=== PATIENT | male | born 1945 | race Caucasian/White ===

== ENCOUNTER → 2016-10-03 | Outpatient (CLI) | payer MEDICARE, BC ==
[2016-10-03 16:28] LABS: Anisocytosis Slight; CH 28.9; HCT 44.7 % (39.0-53.0); HDW 2.68; HGB 13.6 gm/dL (13.0-17.5); Large Platelets Flag Marked; MCH 27.7 pg (25.0-35.0); MCHC 30.5 g/dL (31.0-37.0); MCV 90.6 fL (80.0-100.0); Mean Platelet Volume 15.7; RBC 4.94 m/uL (4.30-5.90); WBC 11.9 k/uL (3.8-10.6)
[2016-10-03 16:34] LABS: Anion Gap 16 mmol/L; Blood Urea Nitrogen 47 mg/dL (9-20); Carbon Dioxide 22 mmol/L (22-30); Chloride 99 mmol/L (98-107); Glucose 250 mg/dL (74-99); Non-African American GFR(MDRD) >60 (>60 ml/min/1.73 sqM); Potassium 5.5 mmol/L (3.5-5.1); Sodium 137 mmol/L (137-145)
== END | disposition home or self-care (01) ==
LOC: LABWHC1 15:22
PROVIDERS: ATTEND Internal Medicine Clinical Cardiac Electrophysiology
DX: Z01.810 Encounter for preprocedural cardiovascular examination (principal); I25.10 Atherosclerotic heart disease of native coronary artery without angina pectoris; I47.2 Ventricular tachycardia
CPT/HCPCS: 36415; 80048; 85027

== ENCOUNTER → 2016-10-05 | Outpatient (CLI) | payer MEDICARE, BC | END | disposition home or self-care (01) | CPT/HCPCS: 86850; 86900; 86901 ==

== ENCOUNTER 2016-10-06 08:58 | Day surgery (SDC) | payer MEDICARE, BC ==
[2016-10-03 09:11] VITALS: BMI 34.5
[2016-10-06] MEDS ORDERED: SODIUM CHLORIDE 0.9% 1,000 ML IV SCH (09:30)
[2016-10-06] MEDS: IV FLUID CONTINUATION 1,000 ML IV ONE ×2 (10:38→18:57)
[2016-10-06] MEDS ORDERED: MIDAZOLAM 2 MG/2 ML VIAL ONE (10:39)
[2016-10-06] MEDS ORDERED: HEPARIN SODIUM 1,000 UNIT/ML VIAL ONE ×2 (10:39)
[2016-10-06] MEDS ORDERED: PHENYLEPHRINE-0.9% NACL SYG 1 MG/10 ML SYRINGE ONE (10:39)
[2016-10-06] MEDS ORDERED: fentaNYL (PF) 50 MCG/ML 2 ML AMP ONE (10:39)
[2016-10-06] MEDS ORDERED: HEPARIN SODIUM,PORCINE/D5W PMX 25,000 UNIT/500 ML BAG IV ONE (10:39)
[2016-10-06] MEDS ORDERED: KETAMINE 10 MG/ML 20 ML VIAL ONE (10:39)
[2016-10-06] MEDS ORDERED: SODIUM CHLORIDE 0.9% 1,000 ML BAG ONE ×2 (10:39)
[2016-10-06] MEDS ORDERED: ePHEDrine 50 MG/ML 1 ML AMP ONE (10:39)
[2016-10-06] MEDS ORDERED: FUROSEMIDE 10 MG/ML 2 ML VIAL ONE (10:39)
[2016-10-06] MEDS ORDERED: VECURONIUM 10 MG VIAL IV ONE (10:39)
[2016-10-06] MEDS ORDERED: GLYCOPYRROLATE 0.2 MG/ML 2 ML VIAL ONE (10:39)
[2016-10-06] MEDS ORDERED: HYDROmorphone (PF) 1 MG/ML ONE (10:39)
[2016-10-06] MEDS ORDERED: NEOSTIGMINE 1 MG/ML 10 ML VIAL ONE (10:39)
[2016-10-06] MEDS ORDERED: HEPARIN SODIUM,PORCINE 5,000 UNIT/ML 1 ML VIAL ONE (10:39)
[2016-10-06] MEDS ORDERED: ISOPROTERENOL 250 MCG/1.25 ML SYR IV ONE (10:39)
[2016-10-06] MEDS ORDERED: PROTAMINE SULFATE 10 MG/ML 5 ML VIAL IV ONE (10:39)
[2016-10-06] MEDS ORDERED: LABETALOL 5 MG/ML VIAL MDV ONE (10:39)
[2016-10-06] MEDS ORDERED: PROPOFOL 10 MG/ML 20 ML VIAL IV ONE (10:39)
[2016-10-06] MEDS ORDERED: LIDOCAINE 2% INJ 20 MG/ML SQ ONE (11:40)
[2016-10-06] MEDS: HEPARIN SODIUM (1,000 UNIT/ML) 1,000 UNIT in SODIUM CHLORIDE 0.9% 1,000 ML IRRIGATION ONE ×2 (11:58→18:57)
[2016-10-06] MEDS: HEPARIN SODIUM,PORCINE/D5W PMX 25,000 UNIT in DEXTROSE/WATER 1 500ML.BAG IV ONE ×2 (12:00→18:58)
[2016-10-06] MEDS: SODIUM CHLORIDE 0.9% 1,000 ML IV ONE ×2 (14:16→18:58)
[2016-10-06] MEDS ORDERED: FUROSEMIDE 10 MG/ML 4 ML VIAL ONE (14:25)
[2016-10-06] MEDS ORDERED: IODIXANOL 320 MG/ML 100 ML INTRAARTER ONE (15:56)
--- NOTE | 2016-10-06 16:37 | P.PCN ---
Preoperative Diagnosis: Planned Procedure: Ablation for ischemic VT Indication for the procedure Recurrent VT with ICD shocks, failure of antitachycardia pacing Inducible at noninvasive program stimulation Ischemic cardio myopathy, coronary artery disease, old RI, inferior wall old/ lateral scar Congestive heart failure class II ITP, thrombocytopenia Procedures performed Successful ablation for ventricular tachycardia, VT rendered noninducible Procedures performed ICD interrogation with reprogramming Comprehensive diagnostic EP study LV pacing and recording Programmed stimulation following Isuprel Intracardiac echocardiography 3-D mapping VT ablation inferior-lateral LV wall Postprocedure ICD interrogation with reprogramming Complications None. Patient stable Patient received 2 units of platelets for thrombo-cytopenia . Also received oral prednisone over the weekend I spoke to the clerk of scales on Thursday regarding the plan of management for thrombocytopenia perioperatively Anesthesia: GETA Condition: stable Disposition: floor
[2016-10-06] MEDS ORDERED: ACETAMINOPHEN TAB 325 MG TAB PO PRN (16:40)
[2016-10-06] MEDS ORDERED: ACETAMINOPHEN IV (For NPO) 1,000 MG in EMPTY BAG 1 BAG IVPB ONE (16:40)
[2016-10-06] MEDS ORDERED: HYDROcodone/APAP 5-325MG 1 EACH TAB PO PRN (16:40)
--- NOTE | 2016-10-06 17:12 | LTR ---
October 06, 2016 RE: Juve Escudero Dear Juhi Melendez: Mr. Juve Escudero underwent successful VT ablation. He was rendered completely noninducible despite a fairly aggressive ventricular stimulation protocol at the end of the procedure. His platelets were 36,000 prior to the start of the procedure and he was treated with prednisone for a few days prior. I gave him 2 units of platelets during and after the procedure and his groins held up well. If you have any questions, please do not hesitate to give me a call. Sincerely, HELADIO JALLOH MD
--- NOTE | 2016-10-06 17:14 | DS ---
DATE OF ADMISSION: 10/06/2016 DATE OF DISCHARGE: Mr. Escudero has ischemic cardiomyopathy. He had recurrent ventricular tachycardia, congestive heart failure, class II, old myocardial infarction, inferolateral. He was admitted with recurrent VT which did not respond to antitachycardia pacing and received ICD shocks. Noninvasive program stimulation revealed inducible ventricular tachycardia, at least two different VTs, one inferior exit and the other was a lateral exit. He underwent successful VT ablation. He was monitored overnight on telemetry after he received platelets for thrombocytopenia. He has ITP. He will be monitored overnight on telemetry. He will be discharged home tomorrow. No antiarrhythmic drug therapy for now.
--- NOTE | 2016-10-06 17:38 | CE ---
DATE OF SERVICE: This is EP study and VT ablation procedure The patient was brought to the EP lab in a fasting state. Written informed consent was obtained prior to the procedure. The right and left groin were prepped and draped as per protocol. He received the first bag of platelets just prior to the procedure. The ICD was interrogated and reprogrammed. Impedance was stable. Impedance was 600 and ventricular RV impedance in the 400s. ICD therapies were turned off. The device is programmed to VVI at 50 beats a minute. Venous sheaths were placed in the right to left femoral veins and an arterial sheath was placed in the right femoral artery for continuous hemodynamic monitoring and sampling. IV heparin was started and ACT was maintained above 300. At the end of the procedure, heparin was reversed. Diagnostic catheters were placed in the right heart ( ) HIS bundle area, ( ). Intracardiac echo catheter was placed. There were no intracardiac mass or thrombus even in the LV or the RV on the left atrial appendage. 3-D anatomic mapping of the left ventricle was performed. The inferior scar was identified and tagged. Next, via the retrograde technique, Pentaray catheter was placed in the left ventricle. Voltage mapping was performed. The inferior lateral scar was defined. Subsequently this was removed and a mapping ablation catheter was placed. The scar was remapped and at this time late potentials identified and tagged. In the inferior aspect, there was a zone of very slow conduction with very prominent lead potentials. RF ablation was performed across this isthmus. Subsequently the scar was homogenized along the lateral and septal aspects. This RF area was then jointed to the mitral annulus. The patient had originally had two ventricular tachycardias, one in the inferior exit and the other was a little more lateral exit. Ablation along the inferior wall was performed within the scar and along the lateral aspect of the scar and subsequently also along the septal aspect of the scar and the scar was completely encircled and homogenized. Following that, the leads and ablation was performed along the from the proximal border of the scar to the mitral annulus. ( ) was completed. Interrogation is performed with high-voltage pacing to document noncapture during after RF lesions and also the ablation points were evaluated anatomically on 100% grid. There were no anatomic gaps. Subsequently full diagnostic EP study was performed, both on and off Isuprel. Ventricular extrastimulation up to triple extrastimuli was performed from the left ventricle, from the RVOT septum and from the RV apex. Double extrastimuli and triple extra stimuli were performed. Burst stimulation was performed. This was repeated on Isuprel and then once again repeated post Isuprel during washout. ( ) ventricular couplets were induced. No nonsustained VT . Specifically no sustained VT was induced. The patient was under general anesthesia. Patient tolerated the procedure well without any acute complications. Received another bag of platelets prior to sheath removal. The arterial sheath was Angio-Sealed. AH interval and the HV intervals were within normal limits. Atrial pacing was performed. Sinus node was evaluated. AV node was evaluated. No other arrhythmias were induced. The AH interval was 99 ms, AH interval was 71 ms, sinus cycle length was 1003 ms, VA interval 215 ms, QRS 120 ms, QT interval 474 ms. The patient tolerated the procedure well without any acute complications.
[2016-10-06] MEDS: CARVEDILOL 3.125 MG TAB PO SCH (19:01)
[2016-10-06 20:50] VITALS: RESP 18
[2016-10-07] MEDS: CARVEDILOL 3.125 MG TAB PO SCH (06:44)
[2016-10-07 06:47] LABS: Anisocytosis Slight; Aty Lym Flag Moderate; CH 28.5; CHCM 31.6; HDW 2.64; HGB 14.3 gm/dL (13.0-17.5); Hypochromasia Slight; Large Platelets Flag Marked; MCV 90.4 fL (80.0-100.0); Mean Platelet Volume 11.9; RBC 5.09 m/uL (4.30-5.90); RDW 16.8 % (11.5-15.5); WBC 15.9 k/uL (3.8-10.6); WBC (Perox) 17.39
[2016-10-07 07:06] LABS: Anion Gap 13 mmol/L; Blood Urea Nitrogen 46 mg/dL (9-20); Calcium 8.8 mg/dL (8.4-10.2); Carbon Dioxide 24 mmol/L (22-30); Chloride 100 mmol/L (98-107); Glucose 166 mg/dL (74-99); Non-African American GFR(MDRD) >60 (>60 ml/min/1.73 sqM); Potassium 4.2 mmol/L (3.5-5.1); Sodium 137 mmol/L (137-145)
[2016-10-07 07:22] LABS: Add Differential Manual Differential
[2016-10-07 07:26] LABS: Manual Review Performed; Nucleated Red Blood Cells 0 /100 WBC (0-0); Total Cells Counted 100
[2016-10-07] MEDS ORDERED: ATORVASTATIN 40 MG TAB PO SCH (09:00)
[2016-10-07] MEDS ORDERED: LOSARTAN 25 MG TAB PO SCH (09:00)
[2016-10-07] MEDS ORDERED: ASPIRIN 81 MG CHEW PO SCH (09:00)
[2016-10-07] MEDS ORDERED: SOTALOL 80 MG TAB PO SCH (09:00)
[2016-10-07] MEDS ORDERED: SPIRONOLACTONE 25 MG TAB PO SCH (09:00)
[2016-10-07 11:37] VITALS: BP 102/50; PULSE 65; TEMP 97.1
--- NOTE | 2016-10-07 11:56 | P.DS ---
Providers Date of admission: Patient is doing well. He denies any chest discomfort no breathing trouble no orthopnea PND. He has no dizziness or lightheadedness. He has been walking the hallways without any problems. He has no groin problems now Vitals are stable, afebrile 97.1F respirations normal blood pressure 127/63 mmHg Heart sounds are normal no rub no gallop Breath sounds are normal no rhonchi no crackles Abdomen is soft nontender Both groins of healed well and there is no tenderness now no hematoma Impression Coronary artery disease Inferior and lateral wall MD Recurrent ventricular tachycardia, easily inducible 2 different morphologies induced, one with inferior exit the second of the lateral exit Status post successful ablation He was completely noninducible following ablation despite high-dose Isuprel and burst stimulation and ventricular extra stimulation with appropriate triple extrastimuli Plan Discharge home Continue cardiac medications Reduce the dose of sotalol to 60 mg twice daily Continue aspirin Follow-up with primary ground helper [facility] in 1 week and in the ICD clinic in 4 months Attending physician: Max Kern Primary care physician: Amos Rodriguez Plan - Discharge Summary New Discharge Prescriptions: Sotalol [Betapace] 60 mg PO BID #90 tablet Discharge Medication List Atorvastatin [Lipitor] 40 mg PO DAILY 04/22/16 [History] Losartan [Cozaar] 25 mg PO DAILY 08/02/16 [History] Aspirin 81 mg PO DAILY #1 chewable 08/18/16 [Rx] Carvedilol [Coreg] 3.125 mg PO BID 10/03/16 [History] Ferrous Sulfate [Iron (65 MG Elemental)] 325 mg PO BID 10/03/16 [History] HYDROcodone/APAP 7.5-325MG [[place] 7.5-325] 1 tab PO DIRECTED PRN 10/03/16 [ History] Spironolactone [Aldactone] 25 mg PO DAILY 10/03/16 [History] Sotalol [Betapace] 60 mg PO BID #90 tablet 10/07/16 [Rx] Follow up Appointment(s)/Referral(s): Christal Estevez MD [STAFF PHYSICIAN] - 1 Week Patient Instructions/Handouts: Cardiac Ablation (DC) Activity/Diet/Wound Care/Special Instructions: Post EP study - Ablation instructions 1. Keep access sites dry for 2 days. 2. No heavy lifting or straining for 2 days. 3. Avoid bending the hips repeatedly for 2 days. 4. You may go up and down stairs slowly Call if the following is noted 1. Bleeding, increasing swelling or pain at the access sites. 2. Increasing chest discomfort, especially upon taking a deep breath. 3. Increasing shortness of breath, at rest or with exertion. 4. Undue cough / phlegm 5. Difficulty or pain while swallowing. 6. Pain or change in color in the extremities. 7. Fever, chills, rigors. 8. Increasing headache or neurologic symptoms. 9. Dizziness, fainting, palpitations
== END 2016-10-07 14:22 | disposition home or self-care (01) ==
LOC: CATHEP 08:58 → 6SEL 16:03 → CATHEP 10-07 14:22
PROVIDERS: ATTEND Internal Medicine Clinical Cardiac Electrophysiology
DX: I47.2 Ventricular tachycardia (principal); D69.6 Thrombocytopenia, unspecified; I25.5 Ischemic cardiomyopathy; I25.10 Atherosclerotic heart disease of native coronary artery without angina pectoris; Z95.5 Presence of coronary angioplasty implant and graft; I50.9 Heart failure, unspecified; I25.2 Old myocardial infarction; Z79.82 Long term (current) use of aspirin; Z79.891 Long term (current) use of opiate analgesic; Z79.899 Other long term (current) drug therapy; Z85.46 Personal history of malignant neoplasm of prostate; Z87.891 Personal history of nicotine dependence
CPT/HCPCS: 93623; 93662; 93654; 36430; 80048; 85025; C1894 ×2; C1769 ×3; C1730; C1760; C1731; C1759; C1893; C1732; P9035; J2001; J2250; J2720; J1644 ×3; J1940; J2710; Q9967; J3010; J1170; J2370; J2704; 86850; 86900; 86901

== ENCOUNTER → 2017-08-11 | Outpatient (CLI) | payer MEDICARE, BC, OTHER | END | disposition home or self-care (01) | LOC: LABWHC1 15:49 | PROVIDERS: ATTEND Urology | DX: C61 Malignant neoplasm of prostate (principal) | CPT/HCPCS: 36415; 84153; 84403 ==

== ENCOUNTER 2017-10-30 16:30 | Inpatient (IN) | payer MEDICARE, BC, OTHER ==
[2017-10-30] MEDS ORDERED: SODIUM CHLORIDE 0.9% 1,000 ML IV STA ×2 (21:29)
[2017-10-30] MEDS ORDERED: SODIUM CHLORIDE 0.9% 500 ML IV STA (21:29)
[2017-10-30] MEDS ORDERED: ONDANSETRON 4 MG/2 ML VIAL IVP STA (21:29)
--- NOTE | 2017-10-30 21:30 | ED ---
General Adult HPI - General Chief complaint: Nausea/Vomiting/Diarrhea Stated complaint: Weakness, Diarrhea Time Seen by Provider: 10/30/17 20:51 Source: patient, family, RN notes reviewed, old records reviewed Mode of arrival: ambulatory Limitations: no limitations - History of Present Illness Initial comments: This is a 72-year-old male the ER for evaluation. This patient's coming in for evaluation regards to weakness. Weakness and lethargy. Patient's it isn't felt well for 3 days. No fevers. No travel history no sick contacts. No failure similar symptoms. Patient has had continuous diarrhea 10-15 times a day as well as nausea. No significant vomiting just dry heaving. Patient's but unable to keep anything down today. - Related Data Home Medications Medication Instructions Recorded Confirmed Atorvastatin [Lipitor] 40 mg PO DAILY 04/22/16 10/30/17 Losartan [Cozaar] 25 mg PO DAILY@1200 08/02/16 10/30/17 Aspirin 81 mg PO BID 10/30/17 10/30/17 Carvedilol [Coreg] 6.25 mg PO BID 10/30/17 10/30/17 Eltrombopag Olamine [Promacta] 50 mg PO DAILY 10/30/17 10/30/17 Nitroglycerin Sl Tabs [Nitrostat] 0.4 mg SUBLINGUAL Q5M PRN 10/30/17 10/30/17 Saxagliptin HCl [Onglyza] 2.5 mg PO HS 10/30/17 10/30/17 Sotalol [Betapace] 80 mg PO BID 10/30/17 10/30/17 Allergies Allergy/AdvReac Type Severity Reaction Status Date / Time No Known Allergies Allergy Verified 10/30/17 21:21 Review of Systems ROS Statement: Those systems with pertinent positive or pertinent negative responses have been documented in the HPI. ROS Other: All systems not noted in ROS Statement are negative. Past Medical History Past Medical History: Blood Disorder, Coronary Artery Disease (CAD), Cancer, Chest Pain / Angina, Myocardial Infarction (PA), Musculoskeletal Disorder Additional Past Medical History / Comment(s): DDD. Prostate Cancer, last radiation treatment April 15, 2015. ITP, SEES DR CLARKE [place], DR MALIK. V- tach. Last Myocardial Infarction Date:: 06/16/2015 History of Any Multi-Drug Resistant Organisms: None Reported Past Surgical History: AICD, Appendectomy, Cholecystectomy, Heart Catheterization With Stent, Pacemaker Additional Past Surgical History / Comment(s): Stent to the LAD 06/16/2015. CARDIOVERSION; AICD 04/26/16, [employer]. Defibrillator placement Past Anesthesia/Blood Transfusion Reactions: No Reported Reaction Date of Last Stent Placement:: 06/16/2015 Type of Cardiac Device: AICD Device Placement Date:: 04/26/16 Past Psychological History: No Psychological Hx Reported Smoking Status: Former smoker Past Alcohol Use History: Rare Past Drug Use History: None Reported - Past Family History Mother Family Medical History: CVA/TIA, Hypertension Father Family Medical History: No Reported History General Exam Limitations: no limitations General appearance: alert, in no apparent distress, anxious, obese Head exam: Present: atraumatic, normocephalic, normal inspection Eye exam: Present: normal appearance, PERRL, EOMI. Absent: scleral icterus, conjunctival injection, periorbital swelling ENT exam: Present: normal exam, mucous membranes dry Neck exam: Present: normal inspection. Absent: tenderness, meningismus, lymphadenopathy Respiratory exam: Present: normal lung sounds bilaterally. Absent: respiratory distress, wheezes, rales, rhonchi, stridor Cardiovascular Exam: Present: regular rate, normal rhythm, normal heart sounds. Absent: systolic murmur, diastolic murmur, rubs, gallop, clicks GI/Abdominal exam: Present: soft, normal bowel sounds. Absent: distended, tenderness, guarding, rebound, rigid Extremities exam: Present: normal inspection, full ROM, normal capillary refill. Absent: tenderness, pedal edema, joint swelling, calf tenderness Back exam: Present: normal inspection Neurological exam: Present: alert, oriented X3, CN II-XII intact Psychiatric exam: Present: normal affect, normal mood Skin exam: Present: warm, dry, intact, normal color. Absent: rash Course Vital Signs 10/30/17 10/30/17 10/31/17 16:58 21:47 00:21 Temperature 98.9 F Pulse Rate 68 60 59 L Respiratory 22 16 16 Rate Blood Pressure 108/58 102/51 106/54 O2 Sat by Pulse 96 94 L 94 L Oximetry - Reevaluation(s) Reevaluation #1: 10/31/17 00:21 Patient still feeling weak, nauseous Medical Decision Making - Medical Decision Making 72 male with 3 days of intractable nausea vomiting diarrhea, white count 22, acute renal injury, acute kidney injury. Severe dehydration. Patient will be admitted for IV resuscitation hemodynamic monitoring, we'll obtain stool culture - Lab Data Result diagrams: 10/30/17 21:09 10/30/17 21:09 Lab Results 10/30/17 10/30/17 10/30/17 Range/Units 21:09 21:09 21:09 WBC 23.5 H (3.8-10.6) k/uL RBC 4.46 (4.30-5.90) m/uL Hgb 12.6 L (13.0-17.5) gm/dL Hct 38.8 L (39.0-53.0) % MCV 87.2 (80.0-100.0) fL MCH 28.3 (25.0-35.0) pg MCHC 32.4 (31.0-37.0) g/dL RDW 18.6 H (11.5-15.5) % Plt Count 191 (150-450) k/uL Neutrophils % (Manual) 69 % Lymphocytes % (Manual) 4 % Monocytes % (Manual) 27 % Neutrophils # (Manual) 16.22 H (1.3-7.7) k/uL Lymphocytes # (Manual) 0.94 L (1.0-4.8) k/uL Monocytes # (Manual) 6.35 H (0-1.0) k/uL Nucleated RBCs 0 (0-0) /100 WBC Manual Slide Review Performed Large Platelets Present Hypochromasia Slight Anisocytosis Slight PT (9.0-12.0) sec INR (<1.2) APTT (22.0-30.0) sec Sodium 143 (137-145) mmol/L Potassium 5.4 H (3.5-5.1) mmol/L Chloride 104 (98-107) mmol/L Carbon Dioxide 22 (22-30) mmol/L Anion Gap 17 mmol/L BUN 48 H (9-20) mg/dL Creatinine 2.00 H (0.66-1.25) mg/dL Est GFR (MDRD) Af Amer 40 (>60 ml/min/1.73 sqM) Est GFR (MDRD) Non-Af 33 (>60 ml/min/1.73 sqM) Glucose 169 H (74-99) mg/dL Plasma Lactic Acid [place] (0.7-2.0) mmol/L Calcium 9.0 (8.4-10.2) mg/dL Phosphorus 3.4 (2.5-4.5) mg/dL Magnesium 1.8 (1.6-2.3) mg/dL Total Bilirubin 1.0 (0.2-1.3) mg/dL AST 48 (17-59) U/L ALT 33 (21-72) U/L Alkaline Phosphatase 98 (38-126) U/L Total Creatine Kinase 56 (55-170) U/L CK-MB (CK-2) 0.4 (0.0-2.4) ng/mL CK-MB (CK-2) Rel Index 0.7 Troponin I <0.012 (0.000-0.034) ng/mL Total Protein 6.6 (6.3-8.2) g/dL Albumin 3.9 (3.5-5.0) g/dL 10/30/17 10/30/17 Range/Units 21:09 21:09 WBC (3.8-10.6) k/uL RBC (4.30-5.90) m/uL Hgb (13.0-17.5) gm/dL Hct (39.0-53.0) % MCV (80.0-100.0) fL MCH (25.0-35.0) pg MCHC (31.0-37.0) g/dL RDW (11.5-15.5) % Plt Count (150-450) k/uL Neutrophils % (Manual) % Lymphocytes % (Manual) % Monocytes % (Manual) % Neutrophils # (Manual) (1.3-7.7) k/uL Lymphocytes # (Manual) (1.0-4.8) k/uL Monocytes # (Manual) (0-1.0) k/uL Nucleated RBCs (0-0) /100 WBC Manual Slide Review Large Platelets Hypochromasia Anisocytosis PT 11.2 (9.0-12.0) sec INR 1.2 H (<1.2) APTT 22.9 (22.0-30.0) sec Sodium (137-145) mmol/L Potassium (3.5-5.1) mmol/L Chloride (98-107) mmol/L Carbon Dioxide (22-30) mmol/L Anion Gap mmol/L BUN (9-20) mg/dL Creatinine (0.66-1.25) mg/dL Est GFR (MDRD) Af Amer (>60 ml/min/1.73 sqM) Est GFR (MDRD) Non-Af (>60 ml/min/1.73 sqM) Glucose (74-99) mg/dL Plasma Lactic Acid [place] 1.5 (0.7-2.0) mmol/L Calcium (8.4-10.2) mg/dL Phosphorus (2.5-4.5) mg/dL Magnesium (1.6-2.3) mg/dL Total Bilirubin (0.2-1.3) mg/dL AST (17-59) U/L ALT (21-72) U/L Alkaline Phosphatase (38-126) U/L Total Creatine Kinase (55-170) U/L CK-MB (CK-2) (0.0-2.4) ng/mL CK-MB (CK-2) Rel Index Troponin I (0.000-0.034) ng/mL Total Protein (6.3-8.2) g/dL Albumin (3.5-5.0) g/dL Disposition Clinical Impression: Dehydration, ARF (acute renal failure), Gastroenteritis Disposition: ADMITTED IP TO THIS [facility] Condition: Serious
[2017-10-30 22:07] LABS: Anisocytosis Slight; HCT 38.8 % (39.0-53.0); HGB 12.6 gm/dL (13.0-17.5); Hypochromasia Slight; MCH 28.3 pg (25.0-35.0); MCHC 32.4 g/dL (31.0-37.0); MCV 87.2 fL (80.0-100.0); Mean Platelet Volume 13.1; Platelet Count 191 k/uL (150-450); RBC 4.46 m/uL (4.30-5.90); RDW 18.6 % (11.5-15.5); WBC 23.5 k/uL (3.8-10.6)
[2017-10-30 22:08] LABS: Albumin 3.9 g/dL (3.5-5.0); Magnesium 1.8 mg/dL (1.6-2.3); Phosphorus 3.4 mg/dL (2.5-4.5); Potassium 5.4 mmol/L (3.5-5.1); Total Protein 6.6 g/dL (6.3-8.2)
[2017-10-30 22:17] LABS: Creatine Kinase 56 U/L (55-170)
[2017-10-30 22:22] LABS: INR 1.2 (<1.2); Partial Thromboplastin Time 22.9 sec (22.0-30.0); Prothrombin Time 11.2 sec (9.0-12.0)
[2017-10-30 22:30] LABS: Creatine Kinase MB 0.4 ng/mL (0.0-2.4); Troponin I <0.012 ng/mL (0.000-0.034)
[2017-10-30 22:45] LABS: Lymphocytes # (M) 0.94 k/uL (1.0-4.8); Monocytes # (M) 6.35 k/uL (0-1.0); Neutrophils # (M) 16.22 k/uL (1.3-7.7); Neutrophils % (M) 69 %; Nucleated Red Blood Cells 0 /100 WBC (0-0); Total Cells Counted 100
[2017-10-30 22:46] LABS: Large Platelets Present
[2017-10-30] MEDS ORDERED: PANTOPRAZOLE 40 MG/10 ML VIAL IVP STA (23:41)
[2017-10-30] MEDS ORDERED: ONDANSETRON 4 MG/2 ML VIAL IVP PRN (23:41)
[2017-10-31 02:15] VITALS: BMI 33.5
[2017-10-31 05:43] LABS: Appearance,Urine Turbid (Clear); Bilirubin,Urine Negative (Negative); Blood,Urine Negative (Negative); Color,Urine Yellow; Glucose,Urine (UA) Negative (Negative); Ketones,Urine Negative (Negative); Leukocyte Esterase,Urine Negative (Negative); Nitrite,Urine Negative (Negative); Protein,Urine Negative (Negative); Uric Acid Crystals,Urine Many /hpf; Urobilinogen,Urine <2.0 mg/dL (<2.0)
[2017-10-31] MEDS: ENOXAPARIN 40 MG/0.4 ML SYRINGE SQ SCH (08:16)
[2017-10-31] MEDS ORDERED: PANTOPRAZOLE 40 MG/10 ML VIAL IVP SCH (09:00)
[2017-10-31] MEDS ORDERED: NITROGLYCERIN SL TABS 0.4 MG TAB SUBLINGUAL PRN (10:58)
[2017-10-31] MEDS ORDERED: LOSARTAN 25 MG TAB PO SCH (12:00)
[2017-10-31] MEDS: ASPIRIN 81 MG PO SCH ×2 (12:06→20:44)
[2017-10-31] MEDS: CARVEDILOL 6.25 MG TAB PO SCH ×2 (12:07→17:57)
[2017-10-31] MEDS: SOTALOL 80 MG TAB PO SCH ×2 (12:07→20:44)
[2017-10-31] MEDS: ATORVASTATIN 40 MG TAB PO SCH (12:08)
[2017-10-31] MEDS: Eltrombopag Olamine [Promacta] 50 MG PO SCH (12:25)
[2017-10-31] MEDS: metroNIDAZOLE 500 MG TAB PO SCH ×2 (17:56→20:44)
[2017-10-31] MEDS: SODIUM CHLORIDE 0.9% 1,000 ML IV SCH (17:56)
--- NOTE | 2017-10-31 17:56 | HP ---
HISTORY AND PHYSICAL DATE OF ADMISSION: 10/30/2017 PRESENTING COMPLAINT: Diarrhea, nausea, vomiting. HISTORY OF PRESENTING COMPLAINT: This is a very pleasant 72-year-old patient of Dr. Amin whose chronic stable medical conditions include AICD, coronary artery disease with a stent to LAD, ITP for which patient follows at [place] with Dr. Velazco, osteoarthritis, sigmoid diverticulosis. The patient's daughter at the bedside. Now for close to a week, patient has been having diarrhea that started off 10 to 15 times a day; after yesterday was having 6 times a day. Slight abdominal discomfort, though no cramping. Has had nausea, vomiting. Has a bit of chills, but no obvious fevers. Denies any use of antibiotics. Nobody else in the house is sick. Feels totally tired and exhausted. No blood in the stool. The stool is not to offensive foul smelling. Denies any recent travel. REVIEW OF SYSTEMS: CONSTITUTIONAL: Weak, tired, run down. HEENT: None. RESPIRATORY: None. CARDIOVASCULAR: None. GASTROINTESTINAL: As above. GENITOURINARY: None. MUSCULOSKELETAL: Arthritic pain in different joints. DERMATOLOGICAL: None. HEMATOLOGIC: None. LYMPHATIC: None. PSYCHIATRY: None. NEUROLOGICAL: None. PAST HISTORY: Past history of AICD for ventricular tachycardia, coronary artery disease with stent to the LAD, ITP being followed by Dr. Velazco at [place], osteoarthritis, rectal angiectasia treated with argon plasma laser and sigmoid diverticulosis; also prostate cancer with radiation treatment in 2014. SOCIAL HISTORY: The patient stopped smoking in 1973. Lives with his son, now retired. FAMILY HISTORY: Reviewed noncontributory to presentation. HOME MEDICATIONS: 1. Sotalol 80 mg b.i.d. 2. Saxagliptin 2.5 p.o. q.h.s. 3. Nitrostat 0.4 sublingual q.5 p.r.n. 4. Cozaar 25 p.o. daily. 5. Promacta 50 mg p.o. daily. 6. Coreg 6.25 p.o. b.i.d. 7. Lipitor 40 mg p.o. daily. 8. Aspirin 81 mg p.o. b.i.d. ALLERGIES: None. PHYSICAL EXAMINATION: On examination, vital signs on presentation: Temperature 98.9, pulse 68, respiratory 22, blood pressure 108/58, pulse ox 96% on room. GENERAL APPEARANCE: Well built, BMI 33.3. Lying in bed, very tired Appearing. EYES: Pupils equal. Conjunctivae normal. HENT: External appearance of nose and ears normal. Oral cavity dry mucous membrane. NECK: Short thick, JVD not raised. Mass not palpable. RESPIRATORY: Effort normal. Lungs are clear. CARDIOVASCULAR: First and second sounds normal. No edema. ABDOMEN: Soft, nontender. Liver and spleen not palpable. LYMPHATIC: No lymph palpable of the neck and axillae. PSYCHIATRY: Alert and oriented x3. Mood and affect normal. NEUROLOGICAL: Pupils equal. Cranial nerves grossly intact. Power and sensation grossly intact. MUSCULOSKELETAL: Evidence of osteoarthritis especially in the hands. INVESTIGATIONS: White count 23.5, hemoglobin 12.6, platelets 191, increased neutrophils. Potassium 5.4, BUN 48, creatinine 2.0. Patient's BUN and creatinine on September of 2016 here was 46 and 1.0. ASSESSMENT: 1. Acute severe gastroenteritis, having failed outpatient conservative treatment, now presents again rather clinically dehydrated, elevated white count, causing renal failure. This could be bacterial, though more likely is also viral. 2. Acute renal failure likely prerenal from volume loss. 3. Hyperkalemia due to renal failure. 4. Coronary artery disease with stent to left anterior descending artery. 5. Automated implantable cardioverter-defibrillator. 6. Chronic rectal angiectasia. 7. Sigmoid diverticulosis asymptomatic. PLAN: At this point, we will start the patient on normal saline to hydrate to see how much kidney function we can recover. Will also start the patient on Cipro and Flagyl. The patient is very weak and tired. Keep on bed rest. Because of his history of ITP, will hold off any Lovenox. Patient encouraged to be out of bed. We will put the patient on a full liquid diet. The patient is very weak and tired to even be out of bed right now. Care was discussed with the patient and daughter. Questions were answered. MMODL / IJN: [id number] /
[2017-10-31] MEDS: INSULIN ASPART 100 UNIT/ML 1 ML 10 ML VIAL SQ SCH ×2 (17:58→20:43)
[2017-10-31 17:59] LABS: Glucose,Whole Blood 121 mg/dL (75-99)
[2017-10-31 20:17] LABS: Glucose,Whole Blood 203 mg/dL (75-99)
[2017-10-31] MEDS: CIPROFLOXACIN HCL 250 MG TAB PO SCH (20:44)
[2017-10-31] MEDS: LINAGLIPTIN 5 MG TABLET PO SCH (20:44)
[2017-11-01] MEDS: SODIUM CHLORIDE 0.9% 1,000 ML IV SCH ×2 (05:25→08:05)
[2017-11-01 07:25] LABS: Glucose,Whole Blood 148 mg/dL (75-99)
[2017-11-01 07:37] LABS: Calcium 7.7 mg/dL (8.4-10.2); Potassium 4.7 mmol/L (3.5-5.1)
[2017-11-01] MEDS: ASPIRIN 81 MG PO SCH ×2 (08:01→20:33)
[2017-11-01] MEDS: ATORVASTATIN 40 MG TAB PO SCH (08:01)
[2017-11-01] MEDS: metroNIDAZOLE 500 MG TAB PO SCH ×2 (08:01→16:04)
[2017-11-01] MEDS: CIPROFLOXACIN HCL 250 MG TAB PO SCH (08:01)
[2017-11-01] MEDS: Eltrombopag Olamine [Promacta] 50 MG PO SCH (08:01)
[2017-11-01] MEDS: INSULIN ASPART 100 UNIT/ML 1 ML 10 ML VIAL SQ SCH ×4 (08:03→20:33)
[2017-11-01] MEDS: SOTALOL 80 MG TAB PO SCH ×2 (08:09→20:33)
[2017-11-01] MEDS: CARVEDILOL 6.25 MG TAB PO SCH ×2 (08:09→17:48)
[2017-11-01 11:20] LABS: Glucose,Whole Blood 140 mg/dL (75-99)
[2017-11-01] MEDS: ENOXAPARIN 40 MG/0.4 ML SYRINGE SQ SCH (15:23)
[2017-11-01 17:29] LABS: Glucose,Whole Blood 113 mg/dL (75-99)
[2017-11-01 19:58] LABS: Glucose,Whole Blood 154 mg/dL (75-99)
--- NOTE | 2017-11-01 20:13 | PN ---
PROGRESS NOTE DATE OF SERVICE: 11/01/17 PRESENT COMPLAINT: Diarrhea. INTERVAL HISTORY: This patient presented with one week of diarrhea, stools come back positive for C. diff. Still having about 5 or 6 stools, some abdominal cramping. Just feels weak and tired. No fever. Getting up to the bathroom. REVIEW OF SYSTEMS: Done for constitutional, cardiovascular, GI, pulmonary, relevant findings as above. CURRENT MEDICATIONS: Include p.o. Cipro, Flagyl, IV fluids. PHYSICAL EXAMINATION: On examination afebrile, pulse 62, respiratory 18, blood pressure 112/55, pulse ox 94% on room air. General appearance sitting up on the edge of the bed, tired appearing. Eyes pupils equal, conjunctivae are normal. HEENT: Normocephalic. Oral cavity dry mucous membranes, neck JVD not raised. Mass not palpable. Respiratory effort normal. Lungs fair entry. Cardiovascular 1st and 2nd sounds normal. No edema. ABDOMEN: Soft, minimal tenderness. Liver and spleen not palpable. No mass palpable. Psychiatry: Alert and oriented x3. Mood and affect tired-appearing. INVESTIGATIONS: Potassium 4.7, BUN 25, creatinine 1.64. Accu-Cheks noted. C diff positive. ASSESSMENT: 1. Acute C diff colitis. 2. Acute renal failure, likely prerenal from volume loss. 3. Hyperkalemia due to renal failure improving. 4. Coronary artery disease with stent to the LAD. 5. AICD. 6. Chronic rectal angiectasia. 7. Sigmoid diverticulosis asymptomatic. PLAN: We will continue to hydrate the patient. We will change the patient to p.o. vancomycin, stop the ciprofloxacin and the Flagyl. Keep with IV fluids running. Will likely increase IV fluids to 125 mL an hour. Care was discussed with the patient. Follow. MMODL / IJN: [id number] /
[2017-11-01] MEDS: LINAGLIPTIN 5 MG TABLET PO SCH (20:33)
[2017-11-01] MEDS: LACTATED RINGERS 1,000 ML IV SCH (20:43)
[2017-11-01] MEDS: VANCOMYCIN ORAL SOLUTION 250 MG/5 ML BOTTLE PO SCH ×2 (21:11→23:28)
[2017-11-02] MEDS: LACTATED RINGERS 1,000 ML IV SCH ×2 (05:21→14:16)
[2017-11-02] MEDS: VANCOMYCIN ORAL SOLUTION 250 MG/5 ML BOTTLE PO SCH ×4 (05:22→23:45)
[2017-11-02 06:56] LABS: Anion Gap 13 mmol/L; Calcium 7.4 mg/dL (8.4-10.2); Carbon Dioxide 17 mmol/L (22-30); Chloride 113 mmol/L (98-107); Glucose 112 mg/dL (74-99); Sodium 143 mmol/L (137-145)
[2017-11-02 07:00] LABS: Blood Urea Nitrogen 18 mg/dL (9-20)
[2017-11-02 07:28] LABS: Glucose,Whole Blood 111 mg/dL (75-99)
[2017-11-02] MEDS: ASPIRIN 81 MG PO SCH ×2 (07:35→21:10)
[2017-11-02] MEDS: CARVEDILOL 6.25 MG TAB PO SCH ×2 (07:35→17:14)
[2017-11-02] MEDS: ATORVASTATIN 40 MG TAB PO SCH (07:35)
[2017-11-02] MEDS: Eltrombopag Olamine [Promacta] 50 MG PO SCH (07:36)
[2017-11-02] MEDS: INSULIN ASPART 100 UNIT/ML 1 ML 10 ML VIAL SQ SCH ×4 (07:55→21:10)
[2017-11-02] MEDS: SOTALOL 80 MG TAB PO SCH ×2 (08:44→21:10)
[2017-11-02] MEDS: CHERRY FLAVOR 60 ML BOTTLE PO PRN ×2 (11:19→17:10)
[2017-11-02 14:51] VITALS: RESP 16
[2017-11-02 17:34] LABS: Glucose,Whole Blood 115 mg/dL (75-99)
[2017-11-02] MEDS: LINAGLIPTIN 5 MG TABLET PO SCH (21:10)
[2017-11-02 21:28] LABS: Glucose,Whole Blood 159 mg/dL (75-99)
[2017-11-03] MEDS: LACTATED RINGERS 1,000 ML IV SCH (03:21)
[2017-11-03] MEDS: VANCOMYCIN ORAL SOLUTION 250 MG/5 ML BOTTLE PO SCH ×2 (05:32→13:32)
--- NOTE | 2017-11-03 06:30 | PN ---
PROGRESS NOTE DATE OF SERVICE: 11/02/2017 PRESENTING COMPLAINT: Diarrhea. INTERVAL HISTORY: This patient admitted with C diff colitis. Diarrhea started getting better after the patient started on oral vancomycin yesterday. The patient has been tolerating a full liquid diet. Appears a bit more peppy, sitting at the edge of the bed. REVIEW OF SYSTEMS: Review of systems done for constitutional, cardiovascular, GI, pulmonary; relevant findings as above. MEDICATIONS: Current medications include oral vancomycin. PHYSICAL EXAMINATION: On examination, temperature 97.6, pulse 61, respiratory 16, blood pressure 104/69, pulse ox 96% on room air. GENERAL APPEARANCE: Sitting at the edge of the bed, more comfortable. EYES: Pupils equal. Conjunctivae normal. Oral cavity normal. NECK: JVD not raised. Mass not palpable. RESPIRATORY: Effort normal. LUNGS: Fair entry. CARDIOVASCULAR: First and second sounds normal. No edema. ABDOMEN: Soft, nontender. Liver and spleen not palpable. No mass palpable. PSYCHIATRY: Alert and oriented x3. Mood and affect improved. INVESTIGATIONS: Potassium 5, BUN 18, creatinine 1.30. ASSESSMENT: 1. Acute Clostridium difficile colitis with clinical improvement. 2. Acute renal failure likely prerenal from volume loss, slowly improving. 3. Hyperkalemia due to renal failure, improved. 4. Coronary artery disease with stent to the left anterior descending artery. 5. Automated implantable cardioverter-defibrillator. 6. Chronic rectal angiectasia. 7. Sigmoid diverticulosis, asymptomatic. PLAN: Care was discussed with the patient and the son at the bedside. If the patient continues to improve, hopefully can be discharged tomorrow. MMODL / IJN: [id number] /
[2017-11-03 07:05] LABS: Glucose,Whole Blood 122 mg/dL (75-99)
[2017-11-03 07:31] LABS: Anion Gap 10 mmol/L; Blood Urea Nitrogen 15 mg/dL (9-20); Calcium 7.4 mg/dL (8.4-10.2); Carbon Dioxide 17 mmol/L (22-30); Chloride 114 mmol/L (98-107); Glucose 124 mg/dL (74-99); Potassium 5.1 mmol/L (3.5-5.1); Sodium 141 mmol/L (137-145)
[2017-11-03] MEDS: INSULIN ASPART 100 UNIT/ML 1 ML 10 ML VIAL SQ SCH ×2 (08:35→13:31)
[2017-11-03 08:41] VITALS: BP 123/53; PULSE 61; TEMP 97.6
[2017-11-03] MEDS: ASPIRIN 81 MG PO SCH (08:41)
[2017-11-03] MEDS: CARVEDILOL 6.25 MG TAB PO SCH ×2 (08:41→17:38)
[2017-11-03] MEDS: SOTALOL 80 MG TAB PO SCH (08:41)
[2017-11-03] MEDS: ATORVASTATIN 40 MG TAB PO SCH (08:41)
[2017-11-03] MEDS: Eltrombopag Olamine [Promacta] 50 MG PO SCH (10:11)
[2017-11-03 11:19] LABS: Anisocytosis Slight; HCT 35.5 % (39.0-53.0); HGB 10.8 gm/dL (13.0-17.5); Hypochromasia Marked; MCH 28.3 pg (25.0-35.0); MCHC 30.5 g/dL (31.0-37.0); Mean Platelet Volume 13.1; Platelet Count 108 k/uL (150-450); RBC 3.84 m/uL (4.30-5.90); RDW 17.8 % (11.5-15.5); WBC 4.8 k/uL (3.8-10.6)
[2017-11-03 11:21] LABS: Glucose,Whole Blood 134 mg/dL (75-99)
[2017-11-03 11:22] LABS: MCV 92.6 fL (80.0-100.0)
[2017-11-03 11:53] LABS: Band Neutrophils % 1 %; Lymphocytes # (M) 0.72 k/uL (1.0-4.8); Monocytes # (M) 0.34 k/uL (0-1.0); Neutrophils % (M) 77 %; Nucleated Red Blood Cells 0 /100 WBC (0-0); Total Cells Counted 100
[2017-11-03 11:54] LABS: Anisocytosis (M) Present; Poikilocytosis (M) Present
[2017-11-03 11:56] LABS: Large Platelets Present
[2017-11-03 17:13] LABS: Glucose,Whole Blood 157 mg/dL (75-99)
--- NOTE | 2017-11-04 06:31 | DS ---
DISCHARGE SUMMARY DATE OF ADMISSION: 10/30/2017 DATE OF DISCHARGE: 11/03/2017. FINAL DIAGNOSES: 1. Acute Clostridium difficile colitis. 2. Acute renal failure likely prerenal from volume loss with improvement. 3. Hyperkalemia due to renal failure, improved. 4. Coronary artery disease with stent to the left anterior descending artery. 5. Automated implantable cardioverter-defibrillator. 6. Chronic rectal angiectasia. 7. Sigmoid diverticulosis, asymptomatic. HOSPITAL COURSE: This patient presented with C diff colitis. Responded well to vancomycin. By the time of discharge, tolerating a diet. Doing much better. ON EXAM: ABDOMEN: Soft, nontender. Normal white count. Care was discussed. DISCHARGE MEDICATIONS: 1. Lipitor 40 mg p.o. daily. 2. Cozaar 25 mg p.o. daily. 3. Aspirin 81 mg p.o. b.i.d. 4. Coreg 6.25 p.o. b.i.d. 5. Promacta 50 mg p.o. daily. 6. Nitrostat 0.4 sublingual q.5 p.r.n. 7. Onglyza 2.5 p.o. q.h.s. 8. Betapace 80 mg p.o. b.i.d. 9. Vancomycin 250 mg q.6 for 10 days. DIET: Soft, bland. Follow up with Dr. Aimn in 3 days. Care was discussed with the patient in detail. MMODL / IJN: [id number] /
== END 2017-11-03 17:55 | disposition home or self-care (01) | DRG 372 ==
LOC: EC 16:30 → 3SUR 23:42
PROVIDERS: ADMIT Hospitalist; ATTEND Hospitalist
DX: A04.72 Enterocolitis due to Clostridium difficile, not specified as recurrent (principal); D69.3 Immune thrombocytopenic purpura; N17.9 Acute kidney failure, unspecified; E87.5 Hyperkalemia; E86.0 Dehydration; I25.10 Atherosclerotic heart disease of native coronary artery without angina pectoris; I25.2 Old myocardial infarction; I99.8 Other disorder of circulatory system; K57.30 Diverticulosis of large intestine without perforation or abscess without bleeding; M19.90 Unspecified osteoarthritis, unspecified site; Z79.82 Long term (current) use of aspirin; Z79.899 Other long term (current) drug therapy; Z82.49 Family history of ischemic heart disease and other diseases of the circulatory system; Z85.46 Personal history of malignant neoplasm of prostate; Z87.891 Personal history of nicotine dependence; Z95.5 Presence of coronary angioplasty implant and graft; Z95.810 Presence of automatic (implantable) cardiac defibrillator
CPT/HCPCS: 36415; 80048; 80053; 81001; 82550; 82553; 83605; 83735; 84100; 84484; 85025; 85610; 85730; 87324; 87328; 87329; 94760; 96361; 96374; 96375; 99285

== ENCOUNTER → 2018-04-21 | Outpatient (CLI) | payer MEDICARE, BC, OTHER ==
[2018-04-21 12:05] LABS: Potassium 5.1 mmol/L (3.5-5.1)
[2018-04-21 12:19] LABS: Anisocytosis Slight; Hypochromasia Moderate; MCH 28.4 pg (25.0-35.0); MCHC 31.6 g/dL (31.0-37.0); MCV 89.8 fL (80.0-100.0); Mean Platelet Volume 11.1; Platelet Count 138 k/uL (150-450); RBC 4.23 m/uL (4.30-5.90); RDW 19.2 % (11.5-15.5); WBC 4.6 k/uL (3.8-10.6)
== END | disposition home or self-care (01) ==
LOC: LABPAT 10:51
PROVIDERS: ATTEND Internal Medicine Cardiovascular Disease
DX: Z01.812 Encounter for preprocedural laboratory examination (principal); I25.10 Atherosclerotic heart disease of native coronary artery without angina pectoris; I25.5 Ischemic cardiomyopathy; I47.2 Ventricular tachycardia
CPT/HCPCS: 36415; 80051; 82565; 84520; 85027

== ENCOUNTER 2018-04-29 10:42 | Day surgery (SDC) | payer MEDICARE, BC, OTHER ==
[~2018-04-29 10:42] MED LIST: ALPRAZolam 0.25 MG TAB PO PRN; ALPRAZolam 0.5 MG TAB PO PRN; ASPIRIN 325 MG TAB PO STA; ATORVASTATIN 80 MG TAB PO STA; NITROGLYCERIN SL TABS 0.4 MG TAB SUBLINGUAL PRN; SODIUM CHLORIDE 0.9% 1,000 ML in EMPTY BAG 1 BAG IV ONE
[2018-04-29 11:46] LABS: Glucose,Whole Blood 165 mg/dL (75-99)
[2018-04-29] MEDS ORDERED: LIDOCAINE 2% SYG (PF) 100 MG/5 ML MISCELLANE ONE (12:49)
[2018-04-29] MEDS ORDERED: MIDAZOLAM 2 MG/2 ML VIAL IV ONE (12:51)
[2018-04-29] MEDS ORDERED: fentaNYL (PF) 50 MCG/ML 2 ML AMP IV ONE (12:51)
[2018-04-29] MEDS ORDERED: VERAPAMIL SYRINGE (5 MG/10 ML) INTRAARTER ONE (12:57)
[2018-04-29] MEDS ORDERED: HEPARIN SODIUM 1,000 UN/ML (10ML VL) IV ONE (12:59)
[2018-04-29] MEDS ORDERED: IOPAMIDOL-370 125ML BTL INJ ONE (13:15)
[2018-04-29] MEDS ORDERED: RX INFO: IV CONTRAST WAS GIVEN 1 EACH MISC MISCELLANE PRN (13:27)
--- NOTE | 2018-04-29 13:34 | P.PCN ---
Date of Procedure: 04/29/18 Preoperative Diagnosis: Positive stress test, nonsustained V. tach and known ischemic heart disease Postoperative Diagnosis: Critical lesion involving the proximal circumflex Procedure(s) Performed: Left heart cath without left ventriculography Description of Procedure: HISTORY: This is a 73-year-old gentleman with history of sustained V. tach and cardiac arrest in the past, status post stent placement of the LAD who was recently noted to have episodes of polymorphic V. tach. Stress test showed evidence of fixed defect in inferior wall and ischemia in the lateral wall area. Patient is advised to have a cardiac catheterization for definitive diagnosis. CONSENT:I have discussed the risks, benefits and alternative therapies for the above-mentioned procedure and for both sedation/analgesia as well as necessary blood product administration, if indicated, as they pertain to this patient. The patient has indicated understanding and acceptance of the risks and procedures discussed. [] PROCEDURE: Patient was brought to the lab in a fasting state. Patient was given some IV sedation. The right wrist is infiltrated with lidocaine and right radial artery was entered using Seldinger technique. A 6-Omani catheter was left in place and selective coronary arteriography was performed. Patient tolerated the procedure well. TR band was applied for hemostasis. No immediate complications were noted and patient was transferred to [facility] in a stable condition. Patient is found to have critical lesion involving the circumflex. Patient is going to be hydrated and possible stenting of the circumflex by Dr. YOHANA Jamil within next 24-48 hours. Conscious Sedation: Versed 1mg Fentanyl 50 g Duration 24 minutes HEMODYNAMICS: The aortic pressure was 130/70. Left ventricular end-diastolic pressure is 14. There was no gradient across the aortic valve. SELECTIVE CORONARY ARTERIOGRAPHY: LEFT MAIN: Normal length with mild plaque THE LEFT ANTERIOR DESCENDING CORONARY ARTERY: This is a moderate caliber vessel with patent stent in the proximal portion. The rest of the LAD is mild diffuse plaque and calcification without any significant focal occlusive disease. THE LEFT CIRCUMFLEX AND IS CORONARY ARTERY: This is a codominant vessel with an eccentric 85-90% stenosis proximally which is also calcified. Distally vessel is free of any Sigmund focal occlusive disease. There is diffuse plaque THE RIGHT CORONARY ARTERY: This is a moderate caliber vessel which is totally occluded in the midportion. The distal RCA is seen by 6. Left collaterals and shows diffuse disease LEFT VENTRICULOGRAPHY: Not performed FINAL IMPRESSION:. Coronary artery disease with patent stent in the LAD, critical lesion in the proximal circumflex and total occlusion of the mid RCA and the coronary system is diffusely diseased PLAN: Possible stent placement of the circumflex. To be assessed by Dr. YOHANA Jamil and possibly scheduled for the procedure for the next 24-48 hours PROGNOSIS: [Guarded
[2018-04-29] MEDS: SODIUM CHLORIDE 0.9% 1,000 ML IV SCH ×2 (14:01→23:12)
[2018-04-29 16:33] LABS: Glucose,Whole Blood 190 mg/dL (75-99)
[2018-04-29] MEDS: LINAGLIPTIN 5 MG TABLET PO SCH (17:31)
[2018-04-29] MEDS ORDERED: SODIUM CHLORIDE 0.9% 1,000 ML in EMPTY BAG 1 BAG IV ONE (18:26)
[2018-04-29] MEDS ORDERED: TEMAZEPAM 15 MG CAP PO PRN (18:33)
[2018-04-29] MEDS: LOSARTAN 25 MG TAB PO SCH (19:38)
[2018-04-29] MEDS: CARVEDILOL 6.25 MG TAB PO SCH (19:38)
[2018-04-29] MEDS: SOTALOL 80 MG TAB PO SCH (19:38)
[2018-04-29 21:21] LABS: Glucose,Whole Blood 125 mg/dL (75-99)
[2018-04-30] MEDS ORDERED: ATORVASTATIN 80 MG TAB PO ONE (05:00)
[2018-04-30] MEDS ORDERED: ASPIRIN 325 MG TAB PO ONE (05:00)
[2018-04-30] MEDS: ASPIRIN 81 MG PO SCH (06:03)
[2018-04-30] MEDS: CARVEDILOL 6.25 MG TAB PO SCH ×2 (06:05→20:55)
[2018-04-30] MEDS: PROMACTA 50 MG PO SCH (06:05)
[2018-04-30] MEDS: SOTALOL 80 MG TAB PO SCH ×2 (06:06→20:55)
[2018-04-30 06:38] LABS: Calcium 9.1 mg/dL (8.4-10.2); Potassium 4.7 mmol/L (3.5-5.1)
[2018-04-30 06:41] LABS: Anisocytosis Slight; HGB 11.7 gm/dL (13.0-17.5); Hypochromasia Slight; MCH 27.9 pg (25.0-35.0); MCHC 31.8 g/dL (31.0-37.0); MCV 87.8 fL (80.0-100.0); Mean Platelet Volume 12.4; Platelet Count 131 k/uL (150-450); RBC 4.21 m/uL (4.30-5.90); WBC 3.2 k/uL (3.8-10.6)
[2018-04-30 07:08] LABS: Monocytes # (M) 0.03 k/uL (0-1.0); Neutrophils # (M) 1.66 k/uL (1.3-7.7); Neutrophils % (M) 52 %; Nucleated Red Blood Cells 0 /100 WBC (0-0); Total Cells Counted 100
[2018-04-30 07:10] LABS: Large Platelets Present
[2018-04-30] MEDS ORDERED: IV FLUID CONTINUATION 1,000 ML IV ONE (07:15)
[2018-04-30] MEDS ORDERED: diphenhydrAMINE 50 MG/ML 1 ML VIAL IVP ONE (07:20)
[2018-04-30] MEDS ORDERED: MIDAZOLAM 2 MG/2 ML VIAL IV ONE (07:21)
[2018-04-30] MEDS ORDERED: LIDOCAINE 1% INJ 10MG/ML (20 ML MDV) SQ ONE (07:24)
[2018-04-30] MEDS ORDERED: BIVALIRUDIN BOLUS 250 MG/50 ML IV ONE (07:35)
[2018-04-30] MEDS ORDERED: BIVALIRUDIN 250 MG in SODIUM CHLORIDE 0.9% 50 ML IV ONE (07:37)
[2018-04-30] MEDS ORDERED: NITROGLYCERIN 1000MCG/10ML SYRINGE INTRACORON ONE (07:53)
[2018-04-30] MEDS ORDERED: IOPAMIDOL-370 100ML BTL INJ ONE (07:55)
[2018-04-30] MEDS ORDERED: ATROPINE SULFATE 0.1 MG/ML 10ML SYRINGE IV PRN (08:04)
[2018-04-30] MEDS ORDERED: ZOLPIDEM 5 MG TAB PO PRN (08:04)
[2018-04-30] MEDS ORDERED: MAG HYDROX/AL HYDROX/SIMETH 30 ML CUP PO PRN (08:04)
[2018-04-30] MEDS ORDERED: CLOPIDOGREL 75 MG TAB PO ONE (08:04)
[2018-04-30] MEDS ORDERED: RX INFO: IV CONTRAST WAS GIVEN 1 EACH MISC MISCELLANE PRN (08:04)
[2018-04-30] MEDS ORDERED: NITROGLYCERIN SL TABS 0.4 MG TAB SUBLINGUAL PRN (08:04)
[2018-04-30] MEDS ORDERED: IOPAMIDOL-370 50ML BTL INJ ONE (08:05)
[2018-04-30 08:28] VITALS: RESP 16
--- NOTE | 2018-04-30 08:50 | PTCA ---
PERCUTANEOUSTRANS CORORONARY ANGIOGRAPHY DATE OF SERVICE: 04/30/2018 PROCEDURE PERFORMED: PTCA and stenting of proximal calcified circumflex coronary artery with a drug-eluting stent. PERFORMED BY: Dr. Neeta Jamil. SEDATION: Moderate conscious sedation time was 38 minutes. Patient was administered Versed, Benadryl and his oxygen saturation, hemodynamics and EKG were monitored closely. CLINICAL INFORMATION: Mr. Chai Escudero is a 73-year-old gentleman, with ischemic cardiomyopathy with an ICD, who had a previous stenting of LAD proximal portion which was calcified in 2014. He is known to have an RCA chronic occlusion. He presented with ventricular tachycardia, had a proximal circumflex, heavily calcified lesion of about 70%. He was advised intervention and was brought in for the procedure the following day. Cardiac cath was performed by Dr. Estevez yesterday from right radial approach. PROCEDURE NOTE: Under local anesthesia and strict aseptic precautions, a 6-E[place]ian introducer was placed in the right femoral artery. I used a standard left Saw guide catheter. A run- through wire was used to cross the lesion. Predilatation was performed with a 2.5 caliber 8 mm long NC Trek balloon. I then did an deployed a 3.25 caliber 12 mm Xience stent at 13 to 14 atmospheres. This stent in the midportion still had some narrowing. This was addressed with a 3.25 caliber 8 mm long NC Trek balloon at 13 atmospheres. Excellent angiographic result was achieved without complication. Results were discussed with the patient and family. He received Angiomax bolus and infusion as per protocol and 600 mg of Plavix was given. Sheath was taken out and Angio-Seal device used to secure hemostasis and he was sent to the room in a stable condition. The results were discussed with the patient and family. MMODL / IJN: [id number] /
[2018-04-30] MEDS: SODIUM CHLORIDE 0.9% 1,000 ML IV SCH ×2 (08:54→20:56)
[2018-04-30] MEDS ORDERED: ATORVASTATIN 40 MG TAB PO SCH (09:00)
[2018-04-30] MEDS ORDERED: ELTROMBOPAG OLAMINE 50 MG PO SCH (09:00)
[2018-04-30 11:50] LABS: Glucose,Whole Blood 128 mg/dL (75-99)
[2018-04-30 12:00] LABS: Glucose,Whole Blood 121 mg/dL (75-99)
[2018-04-30 14:20] VITALS: BMI 32.7
[2018-04-30 16:59] LABS: Glucose,Whole Blood 123 mg/dL (75-99)
[2018-04-30] MEDS: LINAGLIPTIN 5 MG TABLET PO SCH (17:44)
[2018-04-30] MEDS: LOSARTAN 25 MG TAB PO SCH (20:55)
[2018-04-30] MEDS ORDERED: ATORVASTATIN 80 MG TAB PO SCH (21:00)
[2018-04-30 21:13] LABS: Glucose,Whole Blood 120 mg/dL (75-99)
[2018-05-01 00:19] VITALS: PULSE 60
[2018-05-01 06:04] LABS: Glucose,Whole Blood 131 mg/dL (75-99)
[2018-05-01 06:43] LABS: Calcium 8.7 mg/dL (8.4-10.2); Potassium 4.6 mmol/L (3.5-5.1)
[2018-05-01 06:55] LABS: Anisocytosis Slight; HCT 38.4 % (39.0-53.0); HGB 12.5 gm/dL (13.0-17.5); Hypochromasia Slight; MCH 28.8 pg (25.0-35.0); MCHC 32.7 g/dL (31.0-37.0); MCV 88.2 fL (80.0-100.0); Mean Platelet Volume 11.1; Platelet Count 140 k/uL (150-450); RBC 4.35 m/uL (4.30-5.90); RDW 18.7 % (11.5-15.5); WBC 3.2 k/uL (3.8-10.6)
[2018-05-01 07:44] LABS: Lymphocytes # (M) 0.77 k/uL (1.0-4.8); Monocytes # (M) 0.61 k/uL (0-1.0); Neutrophils # (M) 1.82 k/uL (1.3-7.7); Neutrophils % (M) 57 %; Nucleated Red Blood Cells 0 /100 WBC (0-0); Total Cells Counted 100
[2018-05-01 07:46] LABS: Polychromasia Present
--- NOTE | 2018-05-01 07:48 | DS ---
DISCHARGE SUMMARY DATE OF ADMISSION: 04/29/2018. DATE OF DISCHARGE: 05/01/2018. DIAGNOSES: 1. Unstable angina. 2. Ischemic cardiomyopathy. 3. Ventricular tachycardia. PROCEDURES PERFORMED: 1. Left heart catheterization and coronary angiography by Dr. Estevez. 2. PTCA and stenting of proximal circumflex coronary artery by Dr. Neeta Jamil. CLINICAL INFORMATION: Mr. Escudero is a 73-year-old gentleman with a history of ischemic cardiomyopathy who has had previous history of cardiac arrest and sustained ventricular tachycardia. He also has ICD placement. He had stenting of LAD performed in the past. He came into the hospital with evidence of a polymorphic ventricular tachycardia and cardiac cath revealed a significant lesion in the proximal circumflex, heavily calcified. He also had an elevated creatinine in the range of 1.5. He was brought in for cardiac cath which was performed by Dr. Estevez on 04/29/2018. He was hydrated for 24 hours and the next day 04/30/2018 I performed stenting of proximal circumflex. Excellent angiographic result was achieved. Patient's postprocedure course was unremarkable. This morning he is doing well without any significant symptoms. His blood pressure is 110/70 pulse rate is 60 per minute. There is no JVD. S1-S2 heard normally. Short systolic murmur was noted. Lungs revealed decent air entry. Abdomen is distended, nontender. The right radial cath site and right femoral cath site is clean and dry with a good pulse. Laboratory data and EKG are unremarkable. The patient will be discharged today and he will see Dr. Estevez in one week. Discharge instructions regarding activity, diet and medications were given. Prescriptions were also given. MMODL / IJN: [id number] /
[2018-05-01 08:37] VITALS: BP 107/58; TEMP 98.6
[2018-05-01] MEDS: CARVEDILOL 6.25 MG TAB PO SCH (08:41)
[2018-05-01] MEDS: PROMACTA 50 MG PO SCH (08:41)
[2018-05-01] MEDS: ASPIRIN 81 MG PO SCH (08:41)
[2018-05-01] MEDS: SOTALOL 80 MG TAB PO SCH (08:41)
[2018-05-01] MEDS ORDERED: CLOPIDOGREL 75 MG TAB PO SCH (09:00)
== END 2018-05-01 10:15 | disposition home or self-care (01) ==
LOC: CATHCVL 10:42 → 6SEL 13:24 → CATHCVL 05-01 10:15
PROVIDERS: ATTEND Internal Medicine Cardiovascular Disease
DX: I25.10 Atherosclerotic heart disease of native coronary artery without angina pectoris (principal); I25.84 Coronary atherosclerosis due to calcified coronary lesion; I25.82 Chronic total occlusion of coronary artery; Z87.891 Personal history of nicotine dependence; I25.5 Ischemic cardiomyopathy; I25.2 Old myocardial infarction; E11.9 Type 2 diabetes mellitus without complications; Z79.84 Long term (current) use of oral hypoglycemic drugs; Z85.46 Personal history of malignant neoplasm of prostate; Z79.82 Long term (current) use of aspirin; Z79.899 Other long term (current) drug therapy
CPT/HCPCS: 93458; 80048 ×2; 85025 ×2; C9600; C1887; C1760; C1894 ×2; C1725 ×2; C1769 ×4; C1874; J2250 ×2; J1200; J2001 ×2; J3010; J1644; J0583; Q9967 ×3

== ENCOUNTER → 2018-07-29 | Outpatient (CLI) | payer MEDICARE, BC, OTHER ==
[2018-07-29 22:21] LABS: Hemoglobin A1C 7.2 % (4.0-6.0)
== END | disposition home or self-care (01) ==
LOC: LABWHC1 11:21
PROVIDERS: ATTEND Urology
DX: C61 Malignant neoplasm of prostate (principal); E11.9 Type 2 diabetes mellitus without complications
CPT/HCPCS: 36415; 83036; 84153; 84403

== ENCOUNTER 2018-08-10 20:25 | Inpatient (IN) | payer MEDICARE, BC, OTHER ==
[2018-08-10] MEDS ORDERED: METOCLOPRAMIDE 5 MG/ML 2 ML VIAL IVP STA (21:16)
[2018-08-10] MEDS ORDERED: SODIUM CHLORIDE 0.9% 1,000 ML IV ONE (21:21)
--- NOTE | 2018-08-10 21:21 | ED ---
General Adult HPI - General Chief complaint: Chest Pain Stated complaint: chest pain; diarrhea; vomiting; sob Time Seen by Provider: 08/10/18 20:34 Source: patient, family, RN notes reviewed, old records reviewed Mode of arrival: ambulatory Limitations: no limitations - History of Present Illness Initial comments: Chief complaint history of present illness this is a 73-year-old male with complaint of epigastric and lower chest discomfort for 2 days. While riding in emergency room he reportedly vomited a large amount of material states he felt better. States that he had done this at home and probably would not of come the emergency room. Patient is a past history of PA with 4 stents placed over the past 2 years. Has a pacer defibrillator implanted. No radiation of pain. Denies diaphoresis. One episode of diarrhea this evening. - Related Data Home Medications Medication Instructions Recorded Confirmed Atorvastatin [Lipitor] 40 mg PO DAILY 04/22/16 08/10/18 Aspirin 81 mg PO DAILY 10/30/17 08/10/18 Carvedilol [Coreg] 6.25 mg PO BID 10/30/17 08/10/18 Eltrombopag Olamine [Promacta] 50 mg PO DAILY 10/30/17 08/10/18 Nitroglycerin Sl Tabs [Nitrostat] 0.4 mg SUBLINGUAL Q5M PRN 10/30/17 08/10/18 Saxagliptin HCl [Onglyza] 2.5 mg PO DAILY 10/30/17 08/10/18 Sotalol [Betapace] 80 mg PO BID 10/30/17 08/10/18 Amoxicillin 875 mg PO Q12H 08/10/18 08/10/18 HYDROcodone/APAP 7.5-325MG [[place] 1 tab PO TID 08/10/18 08/10/18 7.5-325] Losartan [Cozaar] 25 mg PO DAILY 08/10/18 08/10/18 Ondansetron Odt [Zofran Odt] 4 mg PO Q12HR PRN 08/10/18 08/10/18 guaiFENesin 200 mg PO Q4H 08/10/18 08/10/18 Previous Rx's Medication Instructions Recorded Clopidogrel [Plavix] 75 mg PO DAILY #90 tab 05/01/18 Allergies Allergy/AdvReac Type Severity Reaction Status Date / Time No Known Allergies Allergy Verified 08/10/18 20:47 Review of Systems ROS Statement: Those systems with pertinent positive or pertinent negative responses have been documented in the HPI. Review of systems. No headache or visual acuity changes denies any neck ache. He reports the chest pain he had earlier is gone now. No epigastric pain. He was nauseated on the ride in vomited felt much better. Denies back pain denies any neuro deficits. Otherwise alert. All systems were reviewed. Past medical problems significant for heart disease, PA, prostate cancer with prostatectomy and radiation 2 years ago. His surgeries also include 4 stents, cholecystectomy and appendectomy. Family history no cancers. He quit smoking 30 years ago. Drink alcohol occasionally socially. ROS Other: All systems not noted in ROS Statement are negative. Past Medical History Past Medical History: Blood Disorder, Coronary Artery Disease (CAD), Cancer, Chest Pain / Angina, Myocardial Infarction (PA), Musculoskeletal Disorder Additional Past Medical History / Comment(s): DDD. Prostate Cancer, last radiation treatment April 15, 2015. ITP, SEES [facility], DR MALIK. V- tach. Last Myocardial Infarction Date:: 06/16/2015 History of Any Multi-Drug Resistant Organisms: None Reported Past Surgical History: AICD, Appendectomy, Cholecystectomy, Heart Catheterization With Stent, Pacemaker Additional Past Surgical History / Comment(s): Stent to the LAD 06/16/2015. CARDIOVERSION; AICD 04/26/16, [employer]. Defibrillator placement Past Anesthesia/Blood Transfusion Reactions: No Reported Reaction Date of Last Stent Placement:: 06/16/2015 Type of Cardiac Device: AICD Device Placement Date:: 04/26/16 Past Psychological History: No Psychological Hx Reported Smoking Status: Former smoker Past Alcohol Use History: Rare Past Drug Use History: None Reported - Past Family History Mother Family Medical History: CVA/TIA, Hypertension Father Family Medical History: No Reported History General Exam - General Exam Comments Initial Comments: General: The patient is awake and alert, here because he is having chest pain at home for the past 2 days. Vomited en route to the emergency room states it may have made him feel much better. No radiation of pain. Vital signs temp 98.0 pulse 56 respiratory rate 20 pulse ox 94% room air blood pressure 104/65 Eye: Pupils are equal, round and reactive to light, extra-ocular movements are intact ; there is normal conjunctiva bilaterally. No signs of icterus. History of cataract surgery. Ears, nose, mouth and throat: There are moist mucous membranes and no oral lesions. Neck: The neck is supple, there is no tenderness, no anterior cervical lymphadenopathy. Cardiovascular: There is a regular rate and rhythm. No murmur, rub or gallop is appreciated. Respiratory: Lungs are clear to auscultation, respirations are non-labored, breath sounds are equal. No wheezes, stridor, rales, or rhonchi. Gastrointestinal: Soft, non-distended, non-tender abdomen without masses or organomegaly noted. There is no rebound or guarding present. No CVA tenderness. Bowel sounds are unremarkable. Back: There is no tenderness to palpation in the midline. There is no obvious deformity. No rashes noted. Musculoskeletal: Normal ROM, no tenderness, There is no pedal edema. There is no calf tenderness or swelling. Sensation intact. Pulses equal bilaterally 2+. Neurological: CN II-XII intact, There are no obvious motor or sensory deficits. Coordination appears grossly intact. Speech is normal. No focal or lateralizing findings. Skin: Skin is warm and dry and no rashes or lesions are noted. Psychiatric: Cooperative, appropriate mood & affect, Limitations: no limitations Course Vital Signs 08/10/18 08/10/18 08/10/18 20:27 20:54 21:30 Temperature 98.0 F Pulse Rate 56 L 61 Pulse Rate [ 67 Dry Dip Worker ] Respiratory 20 16 Rate Blood Pressure 104/65 93/57 O2 Sat by Pulse 94 L 93 L Oximetry 08/10/18 22:17 Temperature Pulse Rate 64 Pulse Rate [ Dry Dip Worker ] Respiratory 18 Rate Blood Pressure 112/76 O2 Sat by Pulse 95 Oximetry EKG Findings - EKG Comments: EKG Findings:: EKG was done at 2057 showing accelerated junctional rhythm with occasional PVCs. No acute ST elevation. Rate 68, QRS [address] Steiner Medical Decision Making - Medical Decision Making Medical decision making; this is a 73-year-old male who was brought into emergency room by his son-in-law. The patient states that for the past 2 days been having epigastric and mid to low chest pain. While riding in the car in the emergency to the emergency room he vomited a large amount states he felt much better afterwards. On emergency room the chest pain he had had earlier went away. Denies any radiation no sweats associated no shortness of breath. The patient's labs show white count 13 hemoglobin 11.9 hematocrit 37. Potassium is 5.2 his amylase lipase within normal limits. BUN is 33 creatinine 1.64 and a GFR of 41. Glucose 226. Patient states he is a prediabetic is Onglyza. Review of past history and old charts finds patient has had a history of renal failure. His CK 356 troponins elevated at 3.650. Patient will be heparinized. I discussed the case with on-call barrel washer Dr. Kevin. We discussed EKG and the elevated troponin. The patient will be continued on heparin. He wants the patient admitted to the ICU. We discussed the patient's vital signs. The case is also discussed with Dr. Warren on-call hospitalist. The patient will also be discussed with the ICU doctor. - Lab Data Result diagrams: 08/10/18 20:48 08/10/18 20:48 Lab Results 08/10/18 08/10/18 08/10/18 Range/Units 20:48 20:48 20:48 WBC (3.8-10.6) k/uL RBC PEWTER FABRICATOR Hgb PEWTER FABRICATOR Hct PEWTER FABRICATOR MCV PEWTER FABRICATOR MCH PEWTER FABRICATOR MCHC PEWTER FABRICATOR RDW PEWTER FABRICATOR Sodium 140 (137-145) mmol/L Potassium 5.2 H (3.5-5.1) mmol/L Chloride 106 (98-107) mmol/L Carbon Dioxide 22 (22-30) mmol/L Anion Gap 12 mmol/L BUN 33 H (9-20) mg/dL Creatinine 1.64 H (0.66-1.25) mg/dL Est GFR (CKD-EPI)AfAm 47 (>60 ml/min/1.73 sqM) Est GFR (CKD-EPI)NonAf 41 (>60 ml/min/1.73 sqM) Glucose 226 H (74-99) mg/dL Calcium 9.1 (8.4-10.2) mg/dL Magnesium 1.5 L (1.6-2.3) mg/dL Total Bilirubin 1.6 H (0.2-1.3) mg/dL AST 63 H (17-59) U/L ALT 30 (21-72) U/L Alkaline Phosphatase 54 (38-126) U/L Total Creatine Kinase 356 H (55-170) U/L CK-MB (CK-2) 20.5 H (0.0-2.4) ng/mL CK-MB (CK-2) Rel Index 5.8 Troponin I 3.650 H* (0.000-0.034) ng/mL Total Protein 7.1 (6.3-8.2) g/dL Albumin 4.1 (3.5-5.0) g/dL Amylase 52 (30-110) U/L Lipase 210 (23-300) U/L Disposition Clinical Impression: Acute non-ST segment elevation myocardial infarction (STEMI) following previous myocardial infarction Disposition: ADMITTED IP TO THIS HOSP Condition: Serious Is patient prescribed a controlled substance at d/c from ED?: No Referrals: Ford Amin MD [Primary Care Provider] - 1-2 days
[2018-08-10 21:50] LABS: Albumin 4.1 g/dL (3.5-5.0); Calcium 9.1 mg/dL (8.4-10.2); Magnesium 1.5 mg/dL (1.6-2.3); Potassium 5.2 mmol/L (3.5-5.1); Total Bilirubin 1.6 mg/dL (0.2-1.3); Total Protein 7.1 g/dL (6.3-8.2)
[2018-08-10 22:10] LABS: Creatine Kinase MB 20.5 ng/mL (0.0-2.4)
--- NOTE | 2018-08-10 22:12 | XR ---
EXAMINATION TYPE: XR chest 2V DATE OF EXAM: 08/10/2018 COMPARISON: 08/10/2018 HISTORY: Chest pain TECHNIQUE: Frontal and lateral views of the chest are obtained. FINDINGS: There is no heart failure nor confluent pneumonic infiltrate. Costophrenic angles are caity r. There is left axillary pacemaker with the lead tips in the right ventricle. Bony thorax is intact. IMPRESSION: No active cardiopulmonary disease. There is improved aeration of the lungs compared to l ast exam.
[2018-08-10 22:21] LABS: Troponin I 3.65 ng/mL (0.000-0.034)
[2018-08-10] MEDS ORDERED: HEPARIN SODIUM,PORCINE 5,000 UNIT/ML 1 ML VIAL IV STA (22:30)
[2018-08-10] MEDS ORDERED: HEPARIN SOD,PORK IN 0.45% NACL 25,000 UNIT in 0.45% NACL 1 500ML.BAG IV SCH (22:30)
[2018-08-10] MEDS ORDERED: ACETAMINOPHEN TAB 325 MG TAB PO PRN (22:43)
[2018-08-10] MEDS ORDERED: MORPHINE SULFATE 2 MG/ML SYRINGE IV PRN (22:43)
[2018-08-10] MEDS ORDERED: NALOXONE 0.4 MG/ML 1 ML VIAL IV PRN (22:43)
[2018-08-10] MEDS ORDERED: ONDANSETRON ODT 4 MG TAB PO PRN (22:49)
[2018-08-10] MEDS: SODIUM CHLORIDE 0.9% 1,000 ML IV SCH (23:07)
[2018-08-10 23:15] LABS: INR 1.3 (<1.2); Partial Thromboplastin Time 25.8 sec (22.0-30.0); Prothrombin Time 12.3 sec (9.0-12.0)
[2018-08-10 23:36] LABS: Glucose,Whole Blood 209 mg/dL (75-99)
[2018-08-11] MEDS: PANTOPRAZOLE 40 MG/10 ML VIAL IV SCH ×2 (00:05→14:21)
[2018-08-11 00:49] LABS: Glucose,Whole Blood 200 mg/dL (75-99)
[2018-08-11 01:04] LABS: Anisocytosis Slight; HCT 34.4 % (39.0-53.0); HGB 10.6 gm/dL (13.0-17.5); Hypochromasia Moderate; MCHC 30.9 g/dL (31.0-37.0); MCV 90.8 fL (80.0-100.0); Mean Platelet Volume 12.8; Platelet Count 243 k/uL (150-450); RBC 3.79 m/uL (4.30-5.90); RDW 19.5 % (11.5-15.5); WBC 14.2 k/uL (3.8-10.6)
[2018-08-11 02:11] LABS: Band Neutrophils % 3 %; Large Platelets Present; Lymphocytes # (M) 2.13 k/uL (1.0-4.8); Monocytes # (M) 3.12 k/uL (0-1.0); Neutrophils % (M) 60 %; Nucleated Red Blood Cells 0 /100 WBC (0-0); Total Cells Counted 100
[2018-08-11] MEDS ORDERED: Magnesium Replacement Protocol 1 EACH MISC MISCELLANE PRN (02:12)
[2018-08-11 02:20] LABS: Poikilocytosis (M) Present
[2018-08-11] MEDS: MAGNESIUM SULFATE-D5W PMX 1 GM in DEXTROSE/WATER 1 100ML.BAG IVPB SCH ×2 (03:12→04:20)
[2018-08-11 04:16] LABS: Anisocytosis Slight; HCT 30.1 % (39.0-53.0); HGB 9.8 gm/dL (13.0-17.5); Hypochromasia Moderate; MCHC 32.6 g/dL (31.0-37.0); MCV 88.8 fL (80.0-100.0); Platelet Count 201 k/uL (150-450); RBC 3.39 m/uL (4.30-5.90); RDW 19.6 % (11.5-15.5); WBC 15.9 k/uL (3.8-10.6)
[2018-08-11 04:26] LABS: INR 1.4 (<1.2); Partial Thromboplastin Time 39.5 sec (22.0-30.0); Prothrombin Time 12.7 sec (9.0-12.0)
[2018-08-11 04:46] LABS: Albumin 3.7 g/dL (3.5-5.0); Calcium 8.3 mg/dL (8.4-10.2); Magnesium 1.5 mg/dL (1.6-2.3); Phosphorus 3.4 mg/dL (2.5-4.5); Total Bilirubin 1.6 mg/dL (0.2-1.3); Total Protein 6.7 g/dL (6.3-8.2)
[2018-08-11 04:48] LABS: Potassium 5.7 mmol/L (3.5-5.1)
[2018-08-11] MEDS ORDERED: HEPARIN SODIUM,PORCINE 5,000 UNIT/ML 1 ML VIAL IV ONE (05:03)
[2018-08-11] MEDS: INSULIN ASPART 100 UNIT/ML 1 ML 10 ML VIAL SQ SCH ×4 (06:32→21:36)
[2018-08-11 06:36] LABS: Glucose,Whole Blood 172 mg/dL (75-99)
[2018-08-11] MEDS ORDERED: INSULIN ASPART 100 UNIT/ML 1 ML 10 ML VIAL SQ SCH (07:30)
--- NOTE | 2018-08-11 08:12 | P.CRDCN ---
History of Present Illness Consult date: 08/11/18 Requesting physician: Nicko Warren Consult reason: non-Q-wave NE Chief complaint: Shortness of breath and chest pain History of present illness: This is a 73-year-old gentleman who follows regularly with Dr. Estevez in the office. He has a known history of coronary artery disease with prior LAD stenting and most recently was in the hospital in April of this year at which time he underwent stenting of the circumflex artery. Patient also has history of ischemic cardiomyopathy with prior AICD implantation, history of ventricular tachycardia, , history of diabetes, hyperlipidemia, hypertension, and nicotine dependence. According to the patient, on Thursday or Thursday he states that he noticed himself to be short of breath, felt as though he may be getting flulike symptoms. On Thursday he said the symptoms were quite severe, he had midsternal chest pressure and heaviness and was very short of breath. He came to the emergency room for further evaluation. On arrival to the emergency room patient states he was a quite nauseated and had an episode of vomiting. At the time of my examination this morning, patient had just had significant diarrhea stools, he still complains of a midsternal chest pressure which she is rating at about a 2, still complaining of feeling quite short of breath. Through the night last night, it was noted that the patient's blood pressure was down into the 70s systolic and he was given a fluid bolus. He is currently on IV heparin. His initial chest x-ray on admission here did not reveal any active cardiopulmonary disease. Initial EKG showed a normal sinus rhythm with ST depression noted in the lateral leads. Blood pressure this morning 100/50 with a heart rate in the 70s, 93% on 6 L of oxygen. White blood cell count 15.9, hemoglobin 9.8, platelet count 201. Sodium 138, potassium 5.7, BUN 35, creatinine 1.7. Magnesium 1.5, total bilirubin 1.6, AST 75 and ALT 30. His initial troponin was 3.6 and subsequent troponin 4.4, a stool was sent for C. diff which came back to be negative. The patient is currently on Lipitor 40 mg daily, Coreg 6.25 mg twice a day, IV heparin, Cozaar 25 mg daily, and sotalol 80 mg 1 tablet by mouth twice a day, IV fluids at 80 mL per hour. We will resume the patient's aspirin and Plavix. Patient has been kept nothing by mouth, he has been advised that he'll need to undergo cardiac catheterization, the risks and the benefits were again explained to the patient in detail and he is willing to proceed. Past Medical History Past Medical History: Blood Disorder, Coronary Artery Disease (CAD), Cancer, Chest Pain / Angina, Myocardial Infarction (NE), Musculoskeletal Disorder Additional Past Medical History / Comment(s): DDD. Prostate Cancer, last radiation treatment April 15, 2015. ITP, SEES AT [place], DR MALIK. V- tach. Last Myocardial Infarction Date:: 06/16/2015 History of Any Multi-Drug Resistant Organisms: None Reported Past Surgical History: AICD, Appendectomy, Cholecystectomy, Heart Catheterization With Stent, Pacemaker Additional Past Surgical History / Comment(s): Stent to the LAD 06/16/2015. [facility]; [facility] 04/26/16, [employer]. Defibrillator placement Past Anesthesia/Blood Transfusion Reactions: No Reported Reaction Date of Last Stent Placement:: 06/16/2015 Type of Cardiac Device: AICD Device Placement Date:: 04/26/16 Past Psychological History: No Psychological Hx Reported Smoking Status: Former smoker Past Alcohol Use History: Rare Additional Past Alcohol Use History / Comment(s): QUIT SMOKING 1974 EST, UNSURE # OF YEARS. Past Drug Use History: None Reported - Past Family History Mother Family Medical History: CVA/TIA, Hypertension Father Family Medical History: No Reported History Medications and Allergies Home Medications Medication Instructions Recorded Confirmed Type Atorvastatin [Lipitor] 40 mg PO DAILY 04/22/16 08/10/18 History Aspirin 81 mg PO DAILY 10/30/17 08/10/18 History Carvedilol [Coreg] 6.25 mg PO BID 10/30/17 08/10/18 History Eltrombopag Olamine [Promacta] 50 mg PO DAILY 10/30/17 08/10/18 History Nitroglycerin Sl Tabs [Nitrostat] 0.4 mg SUBLINGUAL Q5M PRN 10/30/17 08/10/18 History Saxagliptin HCl [Onglyza] 2.5 mg PO DAILY 10/30/17 08/10/18 History Sotalol [Betapace] 80 mg PO BID 10/30/17 08/10/18 History Clopidogrel [Plavix] 75 mg PO DAILY #90 tab 05/01/18 08/10/18 Rx Amoxicillin 875 mg PO Q12H 08/10/18 08/10/18 History HYDROcodone/APAP 7.5-325MG [[place] 1 tab PO TID 08/10/18 08/10/18 History 7.5-325] Losartan [Cozaar] 25 mg PO DAILY 08/10/18 08/10/18 History Ondansetron Odt [Zofran Odt] 4 mg PO Q12HR PRN 08/10/18 08/10/18 History guaiFENesin 200 mg PO Q4H 08/10/18 08/10/18 History Allergies Allergy/AdvReac Type Severity Reaction Status Date / Time No Known Allergies Allergy Verified 08/10/18 20:47 Physical Exam Vitals: Vital Signs Temp Pulse Pulse Resp BP Pulse Ox 08/11/18 07:00 70 21 100/57 93 L 08/11/18 06:30 70 21 101/56 98 08/11/18 06:00 70 20 95/55 96 08/11/18 05:30 70 22 85/52 90 L 08/11/18 05:00 70 22 87/43 95 08/11/18 04:30 70 20 88/50 97 08/11/18 04:00 98.7 F 70 28 H 96/51 98 08/11/18 03:30 70 20 96/50 92 L 08/11/18 03:00 70 19 88/47 95 08/11/18 02:30 70 20 86/54 94 L 08/11/18 02:00 70 20 92/55 94 L 08/11/18 01:30 98.7 F 70 18 91/57 97 08/11/18 00:19 70 23 101/57 91 L 08/11/18 00:00 98.4 F 70 18 101/57 94 L 08/10/18 23:44 75 16 93/52 94 L 08/10/18 22:17 64 18 112/76 95 08/10/18 21:30 61 16 93/57 93 L 08/10/18 21:00 64 21 93/43 93 L 08/10/18 20:54 67 08/10/18 20:40 23 08/10/18 20:27 98.0 F 56 L 20 104/65 94 L Intake and Output 08/10/18 08/11/18 08/11/18 22:59 06:59 14:59 Intake Total 946.197 Output Total 0 Balance 946.197 Intake: IV 810 Sodium Chloride 0.9% 1, 810 000 ml @ 80 mls/hr IV . [id number] JESS Rx#:[id number] Intake, IV Titration 136.197 Amount Heparin Sod,Pork in 0.45% 136.197 NaCl 25,000 unit In 0.45 % NaCl 1 500ml.bag @ 20 mls/hr IV .Q24H JESS Rx#: [id number] Output: Urine 0 Other: Voiding Method Bedside Commode # Voids 1 # Bowel Movements 1 Weight 110.677 kg 110.223 kg PHYSICAL EXAMINATION: GENERAL: 73-year-old gentleman in no acute distress at the time of my examination HEENT: Head is atraumatic, normocephalic. Pupils equal, round. Sclera anicteric. Conjunctiva are clear. Mucous membranes of the mouth are moist. Neck is supple. There is elevated jugular venous pressure. No carotid bruit is heard. HEART EXAMINATION: Heart S1, S2 normal. No murmur or gallop heard. CHEST EXAMINATION: Lungs are diminished bilaterally, and wheezing noted. ABDOMEN: Soft, nontender. Bowel sounds are heard. No organomegaly noted. EXTREMITIES: 2+ peripheral pulses with no evidence of peripheral edema and no calf tenderness noted. NEUROLOGIC patient is awake, alert and oriented 3. . Results 08/11/18 03:55 08/11/18 03:55 Cardiac Enzymes 08/10/18 08/10/18 08/11/18 Range/Units 20:48 20:48 03:55 AST 63 H (17-59) U/L CK-MB (CK-2) 20.5 H (0.0-2.4) ng/mL Troponin I 3.650 H* 4.420 H* (0.000-0.034) ng/mL 08/11/18 Range/Units 03:55 AST 75 H (17-59) U/L CK-MB (CK-2) (0.0-2.4) ng/mL Troponin I (0.000-0.034) ng/mL Coagulation 08/10/18 08/11/18 Range/Units 22:48 03:55 PT 12.3 H 12.7 H (9.0-12.0) sec APTT 25.8 39.5 H (22.0-30.0) sec CBC 08/10/18 08/10/18 08/11/18 Range/Units 20:48 22:50 03:55 WBC 14.2 H 15.9 H (3.8-10.6) k/uL RBC [employer] 3.79 L 3.39 L Hgb [employer] 10.6 L 9.8 L Hct [employer] 34.4 L 30.1 L Plt Count 243 201 (150-450) k/uL Comprehensive Metabolic Panel 08/10/18 08/11/18 Range/Units 20:48 03:55 Sodium 140 138 (137-145) mmol/L Potassium 5.2 H 5.7 H (3.5-5.1) mmol/L Chloride 106 109 H (98-107) mmol/L Carbon Dioxide 22 22 (22-30) mmol/L BUN 33 H 35 H (9-20) mg/dL Creatinine 1.64 H 1.77 H (0.66-1.25) mg/dL Glucose 226 H 161 H (74-99) mg/dL Calcium 9.1 8.3 L (8.4-10.2) mg/dL AST 63 H 75 H (17-59) U/L ALT 30 30 (21-72) U/L Alkaline Phosphatase 54 38 (38-126) U/L Total Protein 7.1 6.7 (6.3-8.2) g/dL Albumin 4.1 3.7 (3.5-5.0) g/dL Current Medications Generic Name Dose Route Start Last Admin Trade Name Freq PRN Reason Stop Dose Admin Acetaminophen 650 mg 08/10/18 22:43 Tylenol Tab PO Q4HR PRN Fever and/or Mild Pain Aspirin 81 mg 08/11/18 09:00 Aspirin PO DAILY [facility] Atorvastatin Calcium 40 mg 08/11/18 09:00 Lipitor PO DAILY [facility] Carvedilol 6.25 mg 08/11/18 07:30 Coreg PO BID-W/MEALS [facility] Clopidogrel Bisulfate 75 mg 08/11/18 09:00 Plavix PO DAILY [facility] Heparin Sodium/Sodium Chloride 500 mls @ 20 mls/hr 08/10/18 22:30 11/14/18 06 :00 25,000 unit/ Sodium Chloride IV 23 units/kg/hr .Q24H JESS 50.91 mls/hr Titration Protocol Sodium Chloride 1,000 mls @ 80 mls/hr 08/10/18 22:45 08/10/18 23:07 Saline 0.9% IV 80 mls/hr .[id number] JESS Administration Insulin Aspart 0 unit 08/11/18 06:00 08/11/18 06:32 Novolog SQ 2 unit Q6H JESS Administration Protocol Losartan Potassium 25 mg 08/11/18 09:00 Cozaar PO DAILY JESS Miscellaneous Information 1 each 08/11/18 02:12 Magnesium Per Protocol MISCELLANE DAILY PRN Per Protocol Protocol Morphine Sulfate 2 mg 08/10/18 22:43 Morphine Sulfate (Inj) IV Q2HR PRN Pain Scale 4 to 5 Naloxone HCl 0.2 mg 08/10/18 22:43 Narcan IV Q2M PRN Opioid Reversal Ondansetron HCl 4 mg 08/10/18 22:49 Zofran Odt PO Q12HR PRN Nausea Pantoprazole Sodium 40 mg 08/10/18 23:00 08/11/18 00:05 Protonix IV 40 mg DAILY JESS Administration Sotalol HCl 80 mg 08/11/18 09:00 Betapace PO BID JESS Intake and Output 08/10/18 08/11/18 08/11/18 22:59 06:59 14:59 Intake Total 946.197 Output Total 0 Balance 946.197 Intake: IV 810 Sodium Chloride 0.9% 1, 810 000 ml @ 80 mls/hr IV . [id number] JESS Rx#:[id number] Intake, IV Titration 136.197 Amount Heparin Sod,Pork in 0.45% 136.197 NaCl 25,000 unit In 0.45 % NaCl 1 500ml.bag @ 20 mls/hr IV .Q24H JESS Rx#: [id number] Output: Urine 0 Other: Voiding Method Bedside Commode # Voids 1 # Bowel Movements 1 Weight 110.677 kg 110.223 kg 08/11/18 03:55 08/11/18 03:55 EKG Interpretations (text) EKG shows a normal sinus rhythm with ST depression noted in the lateral leads Assessment and Plan Plan: Assessment and plan #1 non-ST elevation myocardial infarction #2 known history of coronary artery disease with prior LAD stenting, most recently in April of this year patient underwent stenting of the circumflex artery #3 ischemic cardio myopathy with prior AICD implantation #4 diabetes #5 hyperlipidemia #6 acute on chronic renal failure #7 hypomagnesemia #8hyperkalemia #9 history of nicotine dependence #10 ITP Plan We will obtain a stat echocardiogram with Doppler study. Continue IV heparin. Resume the patient's aspirin and Plavix. We will also hold the Cozaar at this time secondary to hyperkalemia. Replace magnesium. Increase IV fluids to 125 an hour. Patient has been advised that he will need to undergo cardiac catheterization, the risks and the benefits were explained to the patient in detail and he is willing to proceed. We will speak with Dr. Estevez and further recommendations will be made. DNP note has been reviewed, I agree with a documented findings and plan of care. Patient was seen and examined.
[2018-08-11] MEDS ORDERED: NITROGLYCERIN SL TABS 0.4 MG TAB SUBLINGUAL PRN (08:14)
[2018-08-11] MEDS ORDERED: SODIUM CHLORIDE 0.9% 1,000 ML in EMPTY BAG 1 BAG IV ONE (08:14)
[2018-08-11] MEDS ORDERED: ASPIRIN 325 MG TAB PO STA (08:19)
[2018-08-11] MEDS ORDERED: ATORVASTATIN 80 MG TAB PO STA (08:20)
[2018-08-11] MEDS: SOTALOL 80 MG TAB PO SCH ×2 (08:27→21:39)
[2018-08-11] MEDS: CARVEDILOL 6.25 MG TAB PO SCH ×2 (08:27→18:35)
[2018-08-11] MEDS: CLOPIDOGREL 75 MG TAB PO SCH (08:32)
[2018-08-11] MEDS ORDERED: IV FLUID CONTINUATION 150 ML IV ONE (08:50)
[2018-08-11] MEDS ORDERED: LOSARTAN 25 MG TAB PO SCH (09:00)
[2018-08-11] MEDS ORDERED: ASPIRIN 81 MG PO SCH (09:00)
[2018-08-11] MEDS ORDERED: ATORVASTATIN 40 MG TAB PO SCH (09:00)
--- NOTE | 2018-08-11 09:00 | XR ---
EXAMINATION TYPE: XR chest 1V portable DATE OF EXAM: 08/11/2018 COMPARISON: Prior chest x-ray 08/10/2018 HISTORY: Abnormal chest x-ray, history coronary artery disease, previous myocardial infarction and ch est pain TECHNIQUE: Single frontal view of the chest is obtained. FINDINGS: Heart is stable. Defibrillator is unchanged. No evident pneumothorax or pleural effusion. Interstitium is increased. Pulmonary vascularity and phil not significantly changed. IMPRESSION: Correlate for possible pulmonary venous hypertension and interstitial edema. Follow-up s uggested.
[2018-08-11] MEDS ORDERED: MIDAZOLAM 2 MG/2 ML VIAL ONE (09:03)
[2018-08-11] MEDS ORDERED: fentaNYL (PF) 50 MCG/ML 2 ML AMP ONE (09:03)
[2018-08-11] MEDS ORDERED: LIDOCAINE 2% INJ 20 MG/ML SQ ONE (09:07)
[2018-08-11] MEDS ORDERED: fentaNYL (PF) 50 MCG/ML 2 ML AMP IVP ONE (09:07)
[2018-08-11] MEDS ORDERED: MIDAZOLAM 2 MG/2 ML VIAL IVP ONE (09:07)
--- NOTE | 2018-08-11 09:15 | P.CNPUL ---
<Kelsi Freeman M - Last Filed: 08/11/18 08:54> History of Present Illness Consult date: 08/11/18 Requesting physician: Nicko Warren Reason for consult: chest pain Chief complaint: Midsternal chest pain, nausea, dyspnea History of present illness: This is a 73-year-old white male patient of Dr. Amin, who presented to the emergency department on 08/10/2018 and 2024 for evaluation of midsternal chest discomfort, heaviness, dyspnea, nausea and vomiting, and diarrhea. Patient has been in this discomfort since Thursday, and he thought he was coming down with the flu. Patient follows with Dr. Estevez for his history of ischemic cardio myopathy, her nares artery disease with previous stenting, previous episodes of myocardial infarctions. He has a pacemaker/AICD implanted. On the medical history significant for prostate cancer status post radiation treatment , diabetes, ITP patient follows up with the doctor at [place], patient is a former smoker, but she denies any history of chronic lung disease. Not on oxygen at his baseline. Initial EKG showed sinus rhythm with ST depression in the lateral leads. Initial troponin was 3.6, and subsequent troponin increased to 4.4. Chest x-ray did not show any acute pulmonary process. White blood cell count was 15.9, hemoglobin is 9.8, platelet count was 201, sodium is 138, potassium is 5.7, BUN 35 and creatinine 1.7. Stool was negative for C. diff. Patient was started on heparin drip, cardiology was consulted, and this morning patient is been ordered for urgent cardiac catheterization by Dr. Estevez. During my evaluation patient is resting comfortably in bed, he still has a residual menstrual chest discomfort which she relates to 10 with no radiation. No further nausea, vomiting or diarrhea. Denies any worsening dyspnea, currently on home oxygen at 6 L, with a pulse ox of 93%, blood pressure is 100/ 57, sinus rhythm with a rate of 70, afebrile. Repeat chest x-ray was obtained this morning and shows interstitial prominence, small left pleural effusion, changes consistent with congestive heart failure. Patient was admitted to the intensive care, and patient will return to the intensive care for further monitoring after the heart catheterization. Review of Systems All systems: negative Constitutional: Denies chills, Denies fever Eyes: denies blurred vision, denies pain Ears, nose, mouth and throat: Denies headache, Denies sore throat Cardiovascular: Reports chest pain, Denies shortness of breath Respiratory: Denies cough Gastrointestinal: Denies abdominal pain, Denies diarrhea, Denies nausea, Denies vomiting Musculoskeletal: Denies myalgias Integumentary: Denies pruritus, Denies rash Neurological: Denies numbness, Denies weakness Psychiatric: Denies anxiety, Denies depression Endocrine: Denies fatigue, Denies weight change Past Medical History Past Medical History: Blood Disorder, Coronary Artery Disease (CAD), Cancer, Chest Pain / Angina, Myocardial Infarction (MN), Musculoskeletal Disorder Additional Past Medical History / Comment(s): DDD. Prostate Cancer, last radiation treatment April 15, 2015. ITP, SEES DR CLARKE [place], DR MALIK. V- tach. Last Myocardial Infarction Date:: 06/16/2015 History of Any Multi-Drug Resistant Organisms: None Reported Past Surgical History: AICD, Appendectomy, Cholecystectomy, Heart Catheterization With Stent, Pacemaker Additional Past Surgical History / Comment(s): Stent to the LAD 06/16/2015. CARDIOVERSION; AICD 04/26/16, [employer]. Defibrillator placement Past Anesthesia/Blood Transfusion Reactions: No Reported Reaction Date of Last Stent Placement:: 06/16/2015 Type of Cardiac Device: AICD Device Placement Date:: 04/26/16 Past Psychological History: No Psychological Hx Reported Smoking Status: Former smoker Past Alcohol Use History: Rare Additional Past Alcohol Use History / Comment(s): QUIT SMOKING 1974 EST, UNSURE # OF YEARS. Past Drug Use History: None Reported - Past Family History Mother Family Medical History: CVA/TIA, Hypertension Father Family Medical History: No Reported History Medications and Allergies Home Medications Medication Instructions Recorded Confirmed Type Atorvastatin [Lipitor] 40 mg PO DAILY 04/22/16 08/10/18 History Aspirin 81 mg PO DAILY 10/30/17 08/10/18 History Carvedilol [Coreg] 6.25 mg PO BID 10/30/17 08/10/18 History Eltrombopag Olamine [Promacta] 50 mg PO DAILY 10/30/17 08/10/18 History Nitroglycerin Sl Tabs [Nitrostat] 0.4 mg SUBLINGUAL Q5M PRN 10/30/17 08/10/18 History Saxagliptin HCl [Onglyza] 2.5 mg PO DAILY 10/30/17 08/10/18 History Sotalol [Betapace] 80 mg PO BID 10/30/17 08/10/18 History Clopidogrel [Plavix] 75 mg PO DAILY #90 tab 05/01/18 08/10/18 Rx Amoxicillin 875 mg PO Q12H 08/10/18 08/10/18 History HYDROcodone/APAP 7.5-325MG [[place] 1 tab PO TID 08/10/18 08/10/18 History 7.5-325] Losartan [Cozaar] 25 mg PO DAILY 08/10/18 08/10/18 History Ondansetron Odt [Zofran Odt] 4 mg PO Q12HR PRN 08/10/18 08/10/18 History guaiFENesin 200 mg PO Q4H 08/10/18 08/10/18 History Allergies Allergy/AdvReac Type Severity Reaction Status Date / Time No Known Allergies Allergy Verified 08/10/18 20:47 Physical Exam Vitals: Vital Signs Temp Pulse Pulse Resp BP Pulse Ox 08/11/18 07:00 70 21 100/57 93 L 08/11/18 06:30 70 21 101/56 98 08/11/18 06:00 70 20 95/55 96 08/11/18 05:30 70 22 85/52 90 L 08/11/18 05:00 70 22 87/43 95 08/11/18 04:30 70 20 88/50 97 08/11/18 04:00 98.7 F 70 28 H 96/51 98 08/11/18 03:30 70 20 96/50 92 L 08/11/18 03:00 70 19 88/47 95 08/11/18 02:30 70 20 86/54 94 L 08/11/18 02:00 70 20 92/55 94 L 08/11/18 01:30 98.7 F 70 18 91/57 97 08/11/18 00:19 70 23 101/57 91 L 08/11/18 00:00 98.4 F 70 18 101/57 94 L 08/10/18 23:44 75 16 93/52 94 L 08/10/18 22:17 64 18 112/76 95 08/10/18 21:30 61 16 93/57 93 L 08/10/18 21:00 64 21 93/43 93 L 08/10/18 20:54 67 08/10/18 20:40 23 08/10/18 20:27 98.0 F 56 L 20 104/65 94 L Intake and Output 08/10/18 08/11/18 08/11/18 22:59 06:59 14:59 Intake Total 946.197 Output Total 0 Balance 946.197 Intake: IV 810 Sodium Chloride 0.9% 1, 810 000 ml @ 80 mls/hr IV . [id number] [facility] Rx#:[id number] Intake, IV Titration 136.197 Amount Heparin Sod,Pork in 0.45% 136.197 NaCl 25,000 unit In 0.45 % NaCl 1 500ml.bag @ 20 mls/hr IV .Q24H [facility] Rx#: [id number] Output: Urine 0 Other: Voiding Method Bedside Commode # Voids 1 # Bowel Movements 1 Weight 110.677 kg 110.223 kg GENERAL EXAM: Alert, pleasant, 73-year-old obese white male comfortable in no apparent distress. HEAD: Normocephalic/atraumatic. EYES: Normal reaction of pupils, equal size. Conjunctiva pink, sclera white. NOSE: Clear with pink turbinates. THROAT: No erythema or exudates. NECK: No masses, no JVD, no thyroid enlargement, no adenopathy. CHEST: No chest wall deformity. Symmetrical expansion. LUNGS: Equal air entry with no crackles, wheeze, rhonchi or dullness. CVS: Regular rate and rhythm, normal S1 and S2, no gallops, no murmurs, no rubs ABDOMEN: Soft, nontender. No hepatosplenomegaly, normal bowel sounds, no guarding or rigidity. EXTREMITIES: No clubbing, no edema, no cyanosis, 2+ pulses and upper and lower extremities. MUSCULOSKELETAL: Muscle strength and tone normal. SPINE: No scoliosis or deformity SKIN: No rashes CENTRAL NERVOUS SYSTEM: Alert and oriented -3. No focal deficits, tone is normal in all 4 extremities. PSYCHIATRIC: Alert and oriented -3. Appropriate affect. Intact judgment and insight. Results - Laboratory Findings CBC and BMP: 08/11/18 03:55 08/11/18 03:55 PT/INR, D-dimer PT 12.7 sec (9.0-12.0) H 08/11/18 03:55 INR 1.4 (<1.2) H 08/11/18 03:55 Abnormal lab findings: Abnormal Labs 08/10/18 08/10/18 08/10/18 20:48 20:48 22:48 WBC RBC Hgb Hct MCHC RDW Neutrophils # (Manual) Monocytes # (Manual) PT 12.3 H INR 1.3 H APTT Potassium 5.2 H Chloride BUN 33 H Creatinine 1.64 H Glucose 226 H POC Glucose (mg/dL) Calcium Magnesium 1.5 L Total Bilirubin 1.6 H AST 63 H Total Creatine Kinase 356 H CK-MB (CK-2) 20.5 H Troponin I 3.650 H* 08/10/18 08/10/18 08/11/18 22:50 23:35 00:37 WBC 14.2 H RBC 3.79 L Hgb 10.6 L Hct 34.4 L MCHC 30.9 L RDW 19.5 H Neutrophils # (Manual) 8.90 H Monocytes # (Manual) 3.12 H PT INR APTT Potassium Chloride BUN Creatinine Glucose POC Glucose (mg/dL) 209 H 200 H Calcium Magnesium Total Bilirubin AST Total Creatine Kinase CK-MB (CK-2) Troponin I 08/11/18 08/11/18 08/11/18 03:55 03:55 03:55 WBC 15.9 H RBC 3.39 L Hgb 9.8 L Hct 30.1 L MCHC RDW 19.6 H Neutrophils # (Manual) Monocytes # (Manual) PT INR APTT Potassium 5.7 H Chloride 109 H BUN 35 H Creatinine 1.77 H Glucose 161 H POC Glucose (mg/dL) Calcium 8.3 L Magnesium 1.5 L Total Bilirubin 1.6 H AST 75 H Total Creatine Kinase CK-MB (CK-2) Troponin I 4.420 H* 08/11/18 08/11/18 03:55 06:25 WBC RBC Hgb Hct MCHC RDW Neutrophils # (Manual) Monocytes # (Manual) PT 12.7 H INR 1.4 H APTT 39.5 H Potassium Chloride BUN Creatinine Glucose POC Glucose (mg/dL) 172 H Calcium Magnesium Total Bilirubin AST Total Creatine Kinase CK-MB (CK-2) Troponin I - Diagnostic Findings Chest x-ray: report reviewed, image reviewed Additional studies: EKG reviewed Assessment and Plan Plan: Assessment: #1. Acute non-ST elevated MN #2. Interstitial prominence, small left pleural effusion, changes consistent with fluid overload and congestive heart failure, noted on chest x-ray #3. Coronary artery disease with previous stenting of the LAD, and most recently of the circumflex in April 2018 #4. Ischemic cardiomyopathy status post AICD implantation #5. Diabetes mellitus type 2 #6. Hyperlipidemia #7. Acute on chronic renal failure, likely related to nausea vomiting diarrhea and dehydration #8. Hyperkalemia #9. She of nicotine dependence, currently in remission #10. History of ITP Plan: Patient has been reported for urgent heart catheterization this morning by Dr. Estevez. He is on IV heparin, still has some residual midsternal chest discomfort is rating at 2 out of 10, no dyspnea, no further vomiting. He is on IV heparin. His Cozaar is on hold due to hyperkalemia, he is receiving IV hydration. His electrolytes are being corrected, and he has been given replacements of IV magnesium sulfate. Patient will return to the intensive care unit after heart catheterization for further monitoring. Continue to follow along with cardiology. We'll recheck electrolytes later today I performed a history & physical examination of the patient and discussed their management with my nurse practitioner, Kelsi Freeman. I reviewed the nurse practitioner's note and agree with the documented findings and plan of care. Lung sounds are positive for diffuse wheezes throughout the lung owen. The findings and the impression was discussed with the patient. I attest to the documentation by the nurse practitioner. Time with Patient: Greater than 30 <Syd Yi - Last Filed: 08/11/18 15:00> Physical Exam Vitals: Vital Signs Temp Pulse Pulse Resp BP Pulse Ox 08/11/18 13:30 71 27 H 96 08/11/18 13:00 69 12 96 08/11/18 12:30 70 9 L 98/47 93 L 08/11/18 12:00 70 24 /62 88 L 08/11/18 11:30 9662 08/11/18 11:00 /62 08/11/18 10:30 /62 08/11/18 10:00 62 08/11/18 09:30 9608/11/18 09:00 70 18 96/62 97 08/11/18 08:30 70 22 104/82 95 08/11/18 08:00 97.6 F 70 19 99/57 99 08/11/18 07:30 70 29 H 108/51 97 08/11/18 07:00 70 21 100/57 93 L 08/11/18 06:30 70 21 101/56 98 08/11/18 06:00 70 20 95/55 96 08/11/18 05:30 70 22 85/52 90 L 08/11/18 05:00 70 22 87/43 95 08/11/18 04:30 70 20 88/50 97 08/11/18 04:00 98.7 F 70 28 H 96/51 98 08/11/18 03:30 70 20 96/50 92 L 08/11/18 03:00 70 19 88/47 95 08/11/18 02:30 70 20 86/54 94 L 08/11/18 02:00 70 20 92/55 94 L 08/11/18 01:30 98.7 F 70 18 91/57 97 08/11/18 00:19 70 23 101/57 91 L 08/11/18 00:00 98.4 F 70 18 101/57 94 L 08/10/18 23:44 75 16 93/52 94 L 08/10/18 22:17 64 18 112/76 95 08/10/18 21:30 61 16 93/57 93 L 08/10/18 21:00 64 21 93/43 93 L 08/10/18 20:54 67 08/10/18 20:40 23 08/10/18 20:27 98.0 F 56 L 20 104/65 94 L Intake and Output 08/10/18 08/11/18 08/11/18 22:59 06:59 14:59 Intake Total 946.197 452.218 Output Total 0 400 Balance 946.197 52.218 Intake: IV 810 398.78 DOPamine DRIP 800 mg In 30.9 Dextrose/Water 1 500ml. bag @ 0 mls/hr IV .[facility] Rx#:[id number] Sodium Chloride 0.9% 1, 810 160 000 ml @ 125 mls/hr IV . Q8H [facility] Rx#:[id number] Sodium Chloride 0.9% 1, 150 000 ml @ 50 mls/hr IV . Q20H [facility] Rx#:[id number] Intake, IV Titration 136.197 53.438 Amount Heparin Sod,Pork in 0.45% 136.197 NaCl 25,000 unit In 0.45 % NaCl 1 500ml.bag @ 20 mls/hr IV .Q24H [facility] Rx#: [id number] Norepinephrine 4 mg In 53.438 Sodium Chloride 0.9% 250 ml @ Titrate IV .Q0M [facility] Rx#:[id number] Output: Urine 0 400 Other: Voiding Method Bedside Commode Bedside Commode # Voids 1 1 # Bowel Movements 1 1 Weight 110.677 kg 110.223 kg ABP, PAP, CO, CI - Last 8 Hours Arterial Blood Pressure 112/39 Arterial Blood Pressure 112/44 Results - Laboratory Findings CBC and BMP: 08/11/18 13:20 08/11/18 13:20 PT/INR, D-dimer PT 12.7 sec (9.0-12.0) H 08/11/18 03:55 INR 1.4 (<1.2) H 08/11/18 03:55 Abnormal lab findings: Abnormal Labs 08/10/18 08/10/18 08/10/18 20:48 20:48 22:48 WBC RBC Hgb Hct MCHC RDW Neutrophils # (Manual) Monocytes # (Manual) Myelocytes # (Manual) PT 12.3 H INR 1.3 H APTT Potassium 5.2 H Chloride Carbon Dioxide BUN 33 H Creatinine 1.64 H Glucose 226 H POC Glucose (mg/dL) Hemoglobin A1c Calcium Magnesium 1.5 L Total Bilirubin 1.6 H AST 63 H Total Creatine Kinase 356 H CK-MB (CK-2) 20.5 H Troponin I 3.650 H* 08/10/18 08/10/18 08/10/18 22:50 22:50 23:35 WBC 14.2 H RBC 3.79 L Hgb 10.6 L Hct 34.4 L MCHC 30.9 L RDW 19.5 H Neutrophils # (Manual) 8.90 H Monocytes # (Manual) 3.12 H Myelocytes # (Manual) PT INR APTT Potassium Chloride Carbon Dioxide BUN Creatinine Glucose POC Glucose (mg/dL) 209 H Hemoglobin A1c 7.2 H Calcium Magnesium Total Bilirubin AST Total Creatine Kinase CK-MB (CK-2) Troponin I 11/14/18 11/14/18 11/14/18 00:37 03:55 03:55 WBC 15.9 H RBC 3.39 L Hgb 9.8 L Hct 30.1 L MCHC RDW 19.6 H Neutrophils # (Manual) Monocytes # (Manual) Myelocytes # (Manual) PT INR APTT Potassium Chloride Carbon Dioxide BUN Creatinine Glucose POC Glucose (mg/dL) 200 H Hemoglobin A1c Calcium Magnesium Total Bilirubin AST Total Creatine Kinase CK-MB (CK-2) Troponin I 4.420 H* 08/11/18 08/11/18 08/11/18 03:55 03:55 06:25 WBC RBC Hgb Hct MCHC RDW Neutrophils # (Manual) Monocytes # (Manual) Myelocytes # (Manual) PT 12.7 H INR 1.4 H APTT 39.5 H Potassium 5.7 H Chloride 109 H Carbon Dioxide BUN 35 H Creatinine 1.77 H Glucose 161 H POC Glucose (mg/dL) 172 H Hemoglobin A1c Calcium 8.3 L Magnesium 1.5 L Total Bilirubin 1.6 H AST 75 H Total Creatine Kinase CK-MB (CK-2) Troponin I 08/11/18 08/11/18 08/11/18 11:49 13:20 13:20 WBC 25.2 H RBC 3.55 L Hgb 9.8 L Hct 31.5 L MCHC RDW 19.7 H Neutrophils # (Manual) 9.58 H Monocytes # (Manual) 14.62 H Myelocytes # (Manual) 0.25 H PT INR APTT Potassium Chloride Carbon Dioxide BUN Creatinine Glucose POC Glucose (mg/dL) 198 H Hemoglobin A1c Calcium Magnesium Total Bilirubin AST Total Creatine Kinase CK-MB (CK-2) Troponin I 32.200 H* 08/11/18 13:20 WBC RBC Hgb Hct MCHC RDW Neutrophils # (Manual) Monocytes # (Manual) Myelocytes # (Manual) PT INR APTT Potassium Chloride 110 H Carbon Dioxide 19 L BUN 36 H Creatinine 2.04 H Glucose 195 H POC Glucose (mg/dL) Hemoglobin A1c Calcium 8.2 L Magnesium Total Bilirubin AST Total Creatine Kinase CK-MB (CK-2) Troponin I Assessment and Plan Plan: This is a joint evaluation that was done along with a nurse practitioner. The patient was taken to the Observation Assistant for an acute non-ST segment elevation myocardial infarction. The patient was found to have critical lesion involving the stent in the proximal circumflex with poor filling in the distal vessels. Based on this, intervention cardiology evaluated this patient and the patient underwent a stent insertion the circumflex with good angiographic results. During the process the patient became hypotensive and she required insertion of intra-aortic balloon pump for hemodynamic support. Currently the patient is intensive care unit. The intra-aortic balloon pump is causing 1:1 augmentation. He is on 2.5 mics of dopamine, he is on 12 mics of levo fed, dobutamine will be also added upon personalization specialist's recommendation. This will be started 2.5 Amos respiratory KG per minute. His follow-up white cell count is at 25.2. His follow-up renal function shows a creatinine of 2.04. BUN is a 36. He has a component of non-anion gap metabolic acidosis. In the ICU, and Artline Was inserted. A triple lumen catheter was inserted. CVP will be monitored. The patient was started on IV Lasix 40 mg every 8 hours. Chest x- rays to follow. He is currently on oxygen at 6 L per minute nasal cannula. He has some mild shortness of breath even at rest. No reported chest pain. Cardiology is on the case. We'll continue to follow. His condition is critical for now.
[2018-08-11] MEDS ORDERED: SODIUM CHLORIDE 0.9% 500 ML 500 ML IV ONE (09:30)
[2018-08-11] MEDS ORDERED: DOPamine DRIP 800 MG in DEXTROSE/WATER 1 500ML.BAG IV ONE (09:30)
[2018-08-11] MEDS ORDERED: NOREPINEPHRINE 4 MG in SODIUM CHLORIDE 0.9% 250 ML IV ONE (09:37)
--- NOTE | 2018-08-11 09:43 | P.CARDCATH ---
Date of Procedure: 08/11/18 Preoperative Diagnosis: Non-STEMI Postoperative Diagnosis: Critical lesion involving the stent in the proximal circumflex with poor filling of the distal vessels Procedure(s) Performed: Left heart cath without left ventriculography Description of Procedure: HISTORY: This is a 73-year-old gentleman with history of ischemic heart disease and previous stent placement of the LAD several years ago who underwent stent placement of the proximal circumflex in April of this year by Dr. YOHANA Jamil. Patient came to the hospital this time with complaints of chest pain and shortness of breath for 2-3 days. His troponin went up to 4. His creatinine is about 1.7. Because of chest pain and abnormal troponins, patient is advised to have a cardiac catheterization for definite diagnosis. CONSENT:I have discussed the risks, benefits and alternative therapies for the above-mentioned procedure and for both sedation/analgesia as well as necessary blood product administration, if indicated, as they pertain to this patient. The patient has indicated understanding and acceptance of the risks and procedures discussed. PROCEDURE: Patient was brought to the lab in a fasting state. Patient was given some IV sedation. The right groin is infiltrated with lidocaine and right femoral artery was entered using Seldinger technique. A 6-Spanish catheter was left in place and selective coronary arteriography was performed. Patient tolerated the procedure well. Patient is waiting to have intervention by Dr. YOHANA Jamil Conscious Sedation: Versed 0.5 mg Fentanyl 25 g Duration 16 minutes HEMODYNAMICS: The aortic pressure is about 85-90 systolic. Left ventricle end- diastolic pressures were not measured SELECTIVE CORONARY ARTERIOGRAPHY: LEFT MAIN: Normal length and agent THE LEFT ANTERIOR DESCENDING CORONARY ARTERY: Good caliber vessel with patent stent in the proximal portion. No other significant obstructive disease noted THE LEFT CIRCUMFLEX AND IS CORONARY ARTERY: 95% stenosis involving the stent in the proximal circumflex. There is poor filling of the distal vessels including a large OM branch. Could be secondary to clot THE RIGHT CORONARY ARTERY:. This is a not selectively studied. From the previous study, this is totally occluded in midportion LEFT VENTRICULOGRAPHY:. Not performed FINAL IMPRESSION: Radical lesion involving the proximal circumflex within the stent poor filling of the distal vessels PLAN: Stent placement of the circumflex to be done by Dr. YOHANA Jamil PROGNOSIS: poor
[2018-08-11] MEDS ORDERED: niCARdipine 25 MG/10 ML VIAL ONE (10:07)
[2018-08-11] MEDS ORDERED: BIVALIRUDIN 250 MG in SODIUM CHLORIDE 0.9% 50 ML IV ONE ×5 (10:18→11:09)
[2018-08-11] MEDS ORDERED: BIVALIRUDIN BOLUS 250 MG/50 ML IV ONE ×2 (10:18)
[2018-08-11] MEDS ORDERED: ONDANSETRON 4 MG/2 ML VIAL ONE (10:18)
[2018-08-11] MEDS ORDERED: ONDANSETRON 4 MG/2 ML VIAL IVP ONE ×2 (10:24)
[2018-08-11] MEDS ORDERED: IOPAMIDOL-370 125ML BTL INJ ONE (10:28)
[2018-08-11] MEDS ORDERED: FUROSEMIDE 10 MG/ML 4 ML VIAL ONE ×2 (10:34→10:41)
[2018-08-11] MEDS ORDERED: FUROSEMIDE 10 MG/ML 4 ML VIAL IV ONE ×5 (10:37→11:29)
[2018-08-11] MEDS ORDERED: HEPARIN SODIUM 1,000 UN/ML (10ML VL) ONE (10:38)
[2018-08-11] MEDS ORDERED: LIDOCAINE 1% INJ 10MG/ML (20 ML MDV) ONE (11:04)
[2018-08-11] MEDS ORDERED: CLOPIDOGREL 75 MG TAB ONE (11:06)
[2018-08-11] MEDS ORDERED: CLOPIDOGREL 75 MG TAB PO ONE (11:10)
[2018-08-11] MEDS: DEXTROSE/WATER 1 500ML.BAG with DOPamine DRIP 800 MG IV SCH (11:45)
[2018-08-11 12:00] LABS: Glucose,Whole Blood 198 mg/dL (75-99)
--- NOTE | 2018-08-11 12:35 | PCN ---
PROCEDURE NOTE ARTERIAL LINE PLACEMENT: Indications: Hemodynamic monitoring. A time-out was completed verifying correct patient, procedure, site, positioning, and implant(s) or special equipment if applicable. Juve's test was performed to ensure adequate perfusion. The patient left wrist was prepped and draped in sterile fashion. 1% Lidocaine was used to anesthetize the area. An 18G Arrow arterial line was introduced into the radial artery. The catheter was threaded over the guide wire and the needle was removed with appropriate pulsatile blood return. Blood loss was minimal. The catheter was then sutured in place to the skin and a sterile dressing applied. Perfusion to the extremity distal to the point of catheter insertion was checked and found to be adequate. The patient tolerated the procedure well. No immediate complications, good waveform noted, line was flushed, sutured in place. MMODL / IJN: [id number] /
--- NOTE | 2018-08-11 12:41 | PTCA ---
PERCUTANEOUSTRANS CORORONARY ANGIOGRAPHY DATE OF SERVICE: 08/11/2018. PROCEDURES: 1. PTCA and stenting of a proximal circumflex coronary artery, which was an in-stent restenosis with a drug-eluting stent. 2. Intra-aortic balloon pump placement from right femoral approach because of hypotension. PERFORMED BY: Dr. Sierra Jamil. ANESTHESIA: Moderate conscious sedation time was 79 minutes. CLINICAL INFORMATION: Mr. Juve Escudero is a 73-year-old gentleman with ischemic cardiomyopathy, known occlusion of RCA with previous intervention of both LAD and circumflex. The last intervention was of circumflex that was performed in April of this year. He came into the hospital with a non-ST elevation myocardial infarction and was hypotensive. He was seen and evaluated by Dr. Estevez who performed the cardiac catheterization which revealed that the circumflex that was stented had a proximal stenosis of about 90% with sluggish flow and thrombus and very limited flow in the distal obtuse marginal which was a large system. This was a codominant circumflex system. He had a previous LAD stent as well but the LAD stent was widely patent with good flow. RCA is known to be totally occluded. I advised PCI of the circumflex after discussion with Dr. Estevez. PROCEDURE NOTE: The existing 6-Sami introducer in the right femoral artery was used to perform the procedure. I used a standard left Asw guide catheter to cannulate the left coronary artery. I used a Whisper wire to cross the lesion. Wire was kept distally. A 3.0, 12 mm Trek balloon was used to pre-dilate the tight stenosis within the previously placed stent in proximal circumflex. I then gave multiple inflations with the same balloon into the obtuse marginal with improvement in flow. There was a lot of thrombus burden. I could not get into the groove branch because of the tortuosity. Subsequently, patient did become hypotensive. He required Levophed of about 7.5 mcg and dopamine of up to 5 mcg. Eventually, I placed a 23 mm long 3.25 caliber Xience stent in the proximal circumflex with excellent angiographic result. The patient's condition improves. His oxygenation stabilized. I gave him some IV Lasix. He was then placed on an intra-aortic balloon pump after completion of the PCI. A drug- eluting stent was deployed in the proximal circumflex of 3.25 mm diameter and 23 mm length. This was a Xience stent. Subsequently, through the same sheath, I tried to advance a 7.5 sheath for the balloon pump, but because of scar tissue I had a lot of difficulty. I therefore advanced the intra-aortic balloon without a sheath and good position was secured. Good augmentation was noticed. There was a palpable pulse in the right lower extremity. The balloon was augmenting at a pressure of between 90 to 95. The balloon was sutured. The patient was sent to the ICU. There was no family members available, but subsequently after completion of the procedure and patient went to the ICU I spoke to the daughter, Manju, by phone. From an angiographic standpoint, an excellent angiographic result was achieved. There was a lot of thrombus burden. Hemodynamically, patient was unstable a balloon pump was used. He received Plavix 300 mg additionally and also used Angiomax bolus and infusion. He was transferred to the ICU and all the necessary orders were called. Prognosis remains guarded. Angiographically good result was achieved. Patient remains hypotensive with a balloon pump in place. MMODL / IJN: [id number] /
[2018-08-11] MEDS ORDERED: NOREPINEPHRINE 4 MG in SODIUM CHLORIDE 0.9% 250 ML IV SCH (13:00)
[2018-08-11 13:44] LABS: Anisocytosis Slight; HCT 31.5 % (39.0-53.0); HGB 9.8 gm/dL (13.0-17.5); Hypochromasia Moderate; MCH 27.7 pg (25.0-35.0); MCHC 31.2 g/dL (31.0-37.0); MCV 88.7 fL (80.0-100.0); Mean Platelet Volume 11.9; Platelet Count 336 k/uL (150-450); Poikilocytosis Slight; RBC 3.55 m/uL (4.30-5.90); RDW 19.7 % (11.5-15.5); WBC 25.2 k/uL (3.8-10.6)
[2018-08-11 13:46] LABS: Hemoglobin A1C 7.2 % (4.0-6.0)
[2018-08-11 13:54] LABS: Calcium 8.2 mg/dL (8.4-10.2); Potassium 4.6 mmol/L (3.5-5.1)
[2018-08-11] MEDS: SODIUM CHLORIDE 0.9% 1,000 ML IV SCH ×2 (14:12→14:14)
[2018-08-11 14:35] LABS: Lymphocytes # (M) 1.26 k/uL (1.0-4.8); Monocytes # (M) 14.62 k/uL (0-1.0); Myelocytes # (M) 0.25 k/uL (0); Myelocytes % 1 %; Neutrophils # (M) 9.58 k/uL (1.3-7.7); Neutrophils % (M) 38 %; Nucleated Red Blood Cells 0 /100 WBC (0-0); Total Cells Counted 200
[2018-08-11 14:36] LABS: Mixed Population RBC Present
[2018-08-11 14:37] LABS: Polychromasia Present
[2018-08-11] MEDS: DOBUTamine DRIP 500 MG in DEXTROSE/WATER 1 250ML.BAG IV SCH (15:00)
--- NOTE | 2018-08-11 15:26 | PCN ---
PROCEDURE NOTE TRIPLE-LUMEN CATHETER: SITE OF INSERTION: Right internal jugular vein. INDICATION: Hemodynamic monitoring/Intravenous access. A time-out was completed verifying correct patient, procedure, site, positioning, and implant(s) or special equipment if applicable. The patient was placed in a dependent position appropriate for triple lumen catheter placement based on the vein to be cannulated. The patient's right neck was prepped and draped in sterile fashion. 1% Lidocaine was used to anesthetize the surrounding skin area. A triple lumen 9F Cordis catheter was introduced into the right internal jugular vein using Seldinger technique. The catheter was threaded smoothly over the guide wire and appropriate blood return was obtained. Each lumen of the catheter was evacuated of air and flushed with sterile saline. The catheter was then sutured in place to the skin and a sterile dressing applied. Perfusion to the extremity distal to the point of catheter insertion was checked and found to be adequate. No bedside complications or bleeding and the procedure was done without any complications. Chest x-rays to follow. MMODL / IJN: [id number] /
--- NOTE | 2018-08-11 15:49 | XR ---
EXAMINATION TYPE: XR chest 1V DATE OF EXAM: 08/11/2018 COMPARISON: Prior chest x-ray 08/01/2018 HISTORY: Central venous catheter placement TECHNIQUE: frontal view of the chest is obtained on 2 images. FINDINGS: Technique is apical lordotic. Interval placement of a right jugular central venous catheter has been performed, distal tip is overlying superior vena cava. No evident pneumothorax or pleural e ffusion. IMPRESSION: No evident complication status post central venous catheter placement.
[2018-08-11] MEDS ORDERED: FUROSEMIDE 10 MG/ML 4 ML VIAL IV SCH (16:00)
[2018-08-11 16:13] LABS: ABG Base Excess -7.8 mmol/L; ABG HCO3 19 mmol/L (21-25); ABG Oxygen Saturation 91.8 % (94-97); ABG PCO2 38 mmHg (35-45); ABG PO2 72 mmHg (83-108); ABG TCO2 20 mmol/L (19-24)
[2018-08-11 16:22] LABS: Glucose,Whole Blood 206 mg/dL (75-99)
--- NOTE | 2018-08-11 17:32 | HP ---
HISTORY AND PHYSICAL DATE OF ADMISSION: 08/10/2018 DATE OF SERVICE: 08/11/2018 PRESENTING COMPLAINT: Chest pain. HISTORY OF PRESENTING COMPLAINT: This is a pleasant 73-year-old patient of Dr. Amin. Magnaflux Operator is Dr. Estevez. In April of this year, patient did have a stent placed. Chronic stable medical conditions include AICD, ITP, diverticulosis, osteoarthritis of the lower spine. The patient on Thursday was just not feeling well. He thought he may have had a bit of a cold, but Thursday, four days ago, patient started having chest pain that was present all day. The patient became more short of breath, started having episodes of perspiration. No dizziness. No lightheadedness. No radiation. Decided to present to the ER yesterday evening. The patient's initial troponin was 3.6, then went up to 4.4. 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 The patient also had a intra-aortic balloon placement because of the right femoral approach because of hypotension. The patient did have his intervention to the circumflex in April of this year. The patient also was found to be in congestive heart failure, started on started on IV Lasix. The patient's LAD stent was patent and RCA is totally blocked. The patient is in the ICU. REVIEW OF SYSTEMS: CONSTITUTIONAL: Tired. HEENT none. RESPIRATORY as above. CARDIOVASCULAR: As above. GASTROINTESTINAL: None. GENITOURINARY none. MUSCULOSKELETAL: Arthritic pain in joints especially lower back. DERMATOLOGICAL, HEMATOLOGIC, LYMPHATIC: none. PSYCHIATRY: None. NEUROLOGICAL: None. PAST MEDICAL HISTORY: Coronary artery disease with recent stent to circumflex in April, AICD, ITP, follows Dr. Velazco at [facility]; colonic diverticulosis, rectal angiectasia with argon treatment in the past, prostate cancer treated with radiation treatment in 2014. PAST SURGICAL HISTORY: AICD, appendectomy, cholecystectomy, cardiac cath with stent, pacemaker, cardioversion. SOCIAL HISTORY: The patient smoked for a few years, stopped in 1973. Alcohol rarely. Lives with Manju. FAMILY HISTORY: Reviewed, noncontributory to presentation. HOME MEDICATIONS: 1. Guaifenesin 200 mg p.o. q.4. 2. Betapace 80 mg b.i.d. 3. Onglyza 2.5 mg p.o. daily. 4. Zofran 4 mg q.12h p.r.n. 5. Nitrostat 0.4 sublingual q.5 p.r.n. 6. Cozaar 25 mg p.o. daily. 7. [place] 7.5 one tab p.o. t.i.d. 8. Promacta 50 mg p.o. daily. 9. Plavix 75 mg p.o. daily. 10.Coreg 6.25 p.o. b.i.d. 11.Lipitor 40 mg p.o. daily. 12.Aspirin 81 mg p.o. daily. 13.Amoxicillin 875 p.o. q.12h. ALLERGIES: None. PHYSICAL EXAMINATION: VITAL SIGNS: Vital signs on presentation, temperature 98, pulse 56, respiration 20, blood pressure did drop to 93/57, pulse ox 93 percent on 2 L. GENERAL APPEARANCE: Well built, BMI 33, lying in bed, short of breath. EYES: Pupils equal. Conjunctivae normal. HEENT: External appearance of nose and ears normal. Oral cavity normal. NECK: JVD unable to assess. Mass not palpable. RESPIRATORY: Effort increased. LUNGS: Diminished breath sounds. CARDIOVASCULAR: 1st and 2nd sounds normal. No edema. ABDOMEN: Soft, nontender. Liver and spleen not palpable. LYMPHATICS: No lymph nodes palpable in the neck and axilla. PSYCHIATRY: Alert and oriented x3. Mood and affect normal. NEUROLOGICAL: Pupils equal. Cranial nerves grossly intact. Power and sensation grossly intact. INVESTIGATIONS: White count 14.2, hemoglobin 10.6, potassium 5.2, BUN 33, creatinine 1.64, repeat this morning BUN was 36, creatinine was 2.04. The patient's troponin was 3.6, 4.4, then 32. Chest x-ray personally reviewed by me showed cardiomegaly and pulmonary edema. EKG showed poor R-wave progression in the anterior leads and ST-segment depression in inferolateral leads. ASSESSMENT: 1. Acute non ST elevation non-Q-wave myocardial infarction leading to intervention in the circumflex. 2. Known coronary artery disease. Last stent in April of 2018 on the . 3. AICD. 4. Idiopathic thrombocytopenia purpura. 5. Colonic diverticulosis. 6. Primary osteoarthritis lower back. 7. Obesity; BMI 33. 8. Acute renal failure probably acute tubular necrosis. Creatinine has gone from 1.17 recently in April, now up to 2.04. 9. Acute metabolic acidosis with a bicarb of 19 in the setting of acute renal failure. 10.Hyperkalemia due to acute renal failure. 11.Normocytic anemia, cause undetermined. 12.Acute congestive heart failure exacerbation, underlying coronary artery disease. Currently EF not known. PLAN: The patient is currently in the ICU. Medications include aspirin Coreg, Plavix, IV dobutamine, IV Lasix 40 q.8h, IV heparin, dopamine. The patient also had been on Levophed, sotalol. We Will repeat patient's electrolytes in the morning. Will send off a UA to look for sediments and get a nephrology opinion. The patient was seen by Dr. Jose Negrete from Cardiology and coronary intervention was done by Dr. Sierra Jamil. Initial cardiac cath by Dr. Estevez. Care was discussed with the patient family at the bedside. Copy to Dr. Amin. BASILIO / TAE: [id number] /
[2018-08-11 18:10] LABS: Anisocytosis Slight; HCT 27.9 % (39.0-53.0); Hypochromasia Slight; MCH 28.5 pg (25.0-35.0); MCHC 32.1 g/dL (31.0-37.0); MCV 88.9 fL (80.0-100.0); Mean Platelet Volume 12.5; Platelet Count 285 k/uL (150-450); RBC 3.14 m/uL (4.30-5.90); RDW 19.8 % (11.5-15.5); WBC 25.9 k/uL (3.8-10.6)
--- NOTE | 2018-08-11 18:41 | ECHOF ---
Referral Reason:NSTEMI MEASUREMENTS -------- HEIGHT: 182.9 cm WEIGHT: 106.1 kg BP: 137/59 RVIDd: 2.9 cm (< 3.3) IVSd: 1.0 cm (0.6 - 1.1) LVIDd: 5.3 cm (3.9 - 5.3) LVPWd: 1.3 cm (0.6 - 1.1) IVSs: 1.3 cm LVIDs: 4.4 cm LVPWs: 1.3 cm LA Diam: 5.5 cm (2.7 - 3.8) LAESV Index (A-L): 59.30 ml/m Ao Diam: 3.0 cm (2.0 - 3.7) AV Cusp: 1.4 cm (1.5 - 2.6) LA Diam: 4.1 cm (2.7 - 3.8) MV EXCURSION: 22.907 mm (> 18.000) MV EF SLOPE: 102 mm/s (70 - 150) EPSS: 0.5 cm MV E Jayden: 0.75 m/s MV DecT: 225 ms MV A Jayden: 0.29 m/s MV E/A Ratio: 2.55 RAP: 5.00 mmHg RVSP: 18.36 mmHg FINDINGS -------- Paced rhythm. This was a techncally difficult study with suboptimal views, , Lumason utilized for enhancement of im ages. The left ventricular size is normal. There is mild concentric left ventricular hypertrophy. Overa ll left ventricular systolic function is moderately impaired with, an EF between 35 - 40 %. Lateral hypokinesis Posterior hypokinesis The right ventricle is normal in size. The left atrium is markedly dilated. LA is severely dilated >40 ml/m2 The right atrial size is normal. 5.0mg OF Lumason UTLIZED: 2 OR MORE WALL SEGMENTS NOT VISUALIZED. There is mild aortic valve sclerosis. There is no evidence of aortic regurgitation. Mild mitral annular calcification present. Mild mitral regurgitation is present. Mild tricuspid regurgitation present. There is no evidence of pulmonary hypertension. The right v entricular systolic pressure, as measured by Doppler, is 18.36mmHg. The pulmonic valve was not well visualized. The aortic root size is normal. There is no pericardial effusion. CONCLUSIONS -------- 1. This was a techncally difficult study with suboptimal views, , Lumason utilized for enhancement of images. 2. The left ventricular size is normal. 3. There is mild concentric left ventricular hypertrophy. 4. Overall left ventricular systolic function is moderately impaired with, an EF between 35 - 40 %. 5. Lateral hypokinesis 6. Posterior hypokinesis 7. The right ventricle is normal in size. 8. The left atrium is markedly dilated. 9. LA is severely dilated >40 ml/m2 10. The right atrial size is normal. 11. 5.0mg OF Lumason UTLIZED: 2 OR MORE WALL SEGMENTS NOT VISUALIZED. 12. There is mild aortic valve sclerosis. 13. Mild mitral annular calcification present. 14. Mild mitral regurgitation is present. 15. Mild tricuspid regurgitation present. 16. There is no evidence of pulmonary hypertension. 17. The right ventricular systolic pressure, as measured by Doppler, is 18.36mmHg. 18. The pulmonic valve was not well visualized. 19. The aortic root size is normal. 20. There is no pericardial effusion. PROGRAM PRODUCTION SPECIALIST: Nathaly Christopher RDCS
[2018-08-11 20:57] LABS: INR 1.5 (<1.2); Prothrombin Time 13.8 sec (9.0-12.0)
[2018-08-11 20:57] LABS: Glucose,Whole Blood 204 mg/dL (75-99)
[2018-08-11] MEDS: HEPARIN SOD,PORK IN 0.45% NACL 25,000 UNIT in 0.45% NACL 1 500ML.BAG IV SCH (21:30)
[2018-08-11 21:42] LABS: Appearance,Urine Cloudy (Clear); Bacteria,Urine Occasional /hpf; Bilirubin,Urine Negative (Negative); Blood,Urine Moderate (Negative); Color,Urine Yellow; Glucose,Urine (UA) Negative (Negative); Ketones,Urine Negative (Negative); Leukocyte Esterase,Urine Negative (Negative); Mucus,Urine Rare /hpf; Nitrite,Urine Negative (Negative); Protein,Urine 1+ (Negative); RBC,Urine >182 /hpf (0-5); Specific Gravity,Urine 1.029 (1.001-1.035); Squamous Epithelial Cell,Urine 1 /hpf (0-4); Urobilinogen,Urine <2.0 mg/dL (<2.0); WBC,Urine 32 /hpf (0-5)
[2018-08-11] MEDS: NOREPINEPHRINE 16 MG in SODIUM CHLORIDE 0.9% 250 ML IV SCH (22:17)
[2018-08-11] MEDS: SALINE 1 500ML.BAG with HEPARIN SODIUM,PORCINE/NS/PF 1,000 UNIT IV ONE (22:31)
[2018-08-12 04:32] LABS: Anisocytosis Slight; HCT 24.3 % (39.0-53.0); HGB 7.7 gm/dL (13.0-17.5); Hypochromasia Slight; MCH 28.3 pg (25.0-35.0); MCHC 31.9 g/dL (31.0-37.0); MCV 88.7 fL (80.0-100.0); Mean Platelet Volume 11.9; Platelet Count 270 k/uL (150-450); Poikilocytosis Slight; RBC 2.74 m/uL (4.30-5.90); RDW 19.6 % (11.5-15.5); WBC 47.3 k/uL (3.8-10.6)
[2018-08-12 04:35] LABS: INR 1.5 (<1.2); Partial Thromboplastin Time 54.4 sec (22.0-30.0)
[2018-08-12 04:59] LABS: Albumin 2.8 g/dL (3.5-5.0); Potassium 4.4 mmol/L (3.5-5.1); Total Protein 5.3 g/dL (6.3-8.2)
[2018-08-12 05:00] LABS: Calcium 7.5 mg/dL (8.4-10.2); Magnesium 1.7 mg/dL (1.6-2.3); Phosphorus 3.7 mg/dL (2.5-4.5); Total Bilirubin 1.5 mg/dL (0.2-1.3)
[2018-08-12] MEDS: SODIUM CHLORIDE 0.9% 1,000 ML IV SCH (05:41)
[2018-08-12 07:22] LABS: Glucose,Whole Blood 199 mg/dL (75-99)
[2018-08-12] MEDS: CARVEDILOL 6.25 MG TAB PO SCH (07:44)
[2018-08-12] MEDS: INSULIN ASPART 100 UNIT/ML 1 ML 10 ML VIAL SQ SCH ×4 (08:00→21:08)
[2018-08-12] MEDS: CLOPIDOGREL 75 MG TAB PO SCH (08:01)
[2018-08-12] MEDS: ATORVASTATIN 40 MG TAB PO SCH (08:01)
[2018-08-12] MEDS: ELTROMBOPAG PO SCH (08:01)
[2018-08-12] MEDS: ASPIRIN 81 MG PO SCH (08:01)
[2018-08-12] MEDS: PANTOPRAZOLE 40 MG/10 ML VIAL IV SCH (08:38)
[2018-08-12] MEDS: SOTALOL 80 MG TAB PO SCH (08:38)
--- NOTE | 2018-08-12 09:05 | XR ---
EXAMINATION TYPE: XR chest 1V portable DATE OF EXAM: 08/12/2018 COMPARISON: 08/11/2018 HISTORY: Line placement TECHNIQUE: Single frontal view of the chest is obtained. FINDINGS: Right-sided central line seen with the tip overlying the SVC. There is an aortic balloon p ump marker overlying the aortic knob. Cardiac device seen with diffuse interstitial pattern bilateral consolidation and pleural effusion. Arthropathy of the shoulders. No pneumothorax. IMPRESSION: 1. Bilateral consolidation and pleural effusion correlate for CHF.
[2018-08-12] MEDS: PIPERACILLIN-TAZOBACTAM 3.375 GM in SODIUM CHLORIDE 0.9% 100 ML IVPB SCH ×3 (09:08→23:50)
[2018-08-12] MEDS ORDERED: FUROSEMIDE 10 MG/ML 10 ML VIAL IV STA (09:45)
[2018-08-12] MEDS ORDERED: MAGNESIUM SULFATE-D5W PMX 1 GM in DEXTROSE/WATER 1 100ML.BAG IVPB ONE (09:46)
[2018-08-12 10:45] LABS: ABG HCO3 18 mmol/L (21-25); ABG Oxygen Saturation 96.6 % (94-97); ABG PCO2 36 mmHg (35-45); ABG PH 7.31 (7.35-7.45); ABG PO2 86 mmHg (83-108); ABG TCO2 19 mmol/L (19-24)
[2018-08-12] MEDS ORDERED: IPRATROPIUM-ALBUTEROL 3 ML NEB INHALATION SCH (12:00)
[2018-08-12 12:22] LABS: Glucose,Whole Blood 274 mg/dL (75-99)
--- NOTE | 2018-08-12 13:19 | P.PN ---
Subjective Progress Note Date: 08/12/18 On 08/12/2018 the patient is being seen for a follow-up. The patient is known to have coronary artery disease and he is post acute non-ST segment elevation myocardial infarction. He has severe ischemic artery myopathy and is post AICD placement. The patient was taken to [facility] yesterday and underwent stenting of the circumflex, and intra-aortic balloon pump was inserted and following that the patient was transferred to the intensive care unit. Initially the patient was on a intra-aortic balloon pump with a one-to-one ratio augmentation. The patient was also on a combination of pressors including dopamine 2.5 g per KG per minute, norepinephrine infusion running at 12 g per KG per minute and dobutamine. A triple lumen catheter inserted in the CVP was above 12 consistently. The patient was started on diuretics and the patient produced adequate amount of urine output over the past when he 4 hours and currently the patient negative fluid balance. His morning the patient is on 6 L of oxygen by nasal cannula. Intra-aortic balloon pump is still maintained. The augmented blood pressure was 70. The patient is still on the same pressor doses. He was having some increased cough and congestion and some sputum production without any fever. White cell count was noted to be high this morning and based on that the patient was started on empiric antibiotic coverage with IV Zosyn . It was noted the patient's hemoglobin dropped down to 7.7. The patient was having blood wasn't from the puncture sites including the intra-aortic balloon puncture site and the right IJ triple-lumen catheter puncture site. The bleeding was controlled. IV heparin was resumed. It's likely that hemoglobin drop was secondary to the blood loss from the skin surface. On today's evaluation, he is alert and awake. He denies having any chest pain. No significant shortness of breath. Chest x-ray from this morning shows bilateral consolidation pleural effusions consistent with CHF. The net fluid balance over the past 24 hours is +946 mL and the patient remains in a positive fluid balance of 1.1 L for today. Otherwise, no other significant events. Adequate pulses in all 4 extremities. Objective - Vital Signs Vital signs: Vital Signs Temp 97 F L 08/12/18 12:00 Pulse 83 08/12/18 12:30 Resp 11 L 08/12/18 12:30 BP 84/52 08/12/18 12:30 Pulse Ox 96 08/12/18 12:30 Intake & Output 08/11/18 08/12/18 08/12/18 18:59 06:59 18:59 Intake Total 805.538 6032.183 588.2 Output Total 780 660 300 Balance -53.382 1155.183 288.2 Weight 110 kg Intake: IV 673.18 823.2 468.2 DOBUTamine DRIP 500 mg In 33.2 99.6 46.1 Dextrose/Water 1 250ml. bag @ 2.5 MCG/KG/MIN 8.26 mls/hr IV .Q24H [facility] [place] Rx#: [id number] DOPamine DRIP 800 mg In 72.1 123.6 72.1 Dextrose/Water 1 500ml. bag @ 0 mls/hr IV .STK- MED [facility] Rx#:[id number] Piperacillin-Tazobactam 3 100 .375 gm In Sodium Chloride 0.9% 100 ml @ 25 mls/hr IVPB Q8HR [facility] [place] Rx# :[id number] Sodium Chloride 0.9% 1, 160 000 ml @ 125 mls/hr IV . Q8H [facility] Rx#:[id number] Sodium Chloride 0.9% 1, 350 600 250 000 ml @ 50 mls/hr IV . Q20H [facility] [place] Rx#:[id number] Intake, IV Titration 53.438 31.983 Amount Norepinephrine 16 mg In 31.983 Sodium Chloride 0.9% 250 ml @ Titrate IV .Q0M [facility] [place] Rx#:[id number] Norepinephrine 4 mg In 53.438 Sodium Chloride 0.9% 250 ml @ Titrate IV .Q0M [facility] [place] Rx#:[id number] Oral 960 120 Output: Urine 780 660 300 Other: Voiding Method Bedside Commode Bedside Commode Bedside Commode # Voids 1 1 # Bowel Movements 1 1 ABP, PAP, CO, CI - Last Documented Arterial Blood Pressure 78/41 - Exam GENERAL EXAM: Alert, pleasant, 73-year-old obese white male comfortable in no apparent distress. The patient is resting comfortably in bed on oxygen at 5 L per minute nasal cannula. HEAD: Normocephalic/atraumatic. EYES: Normal reaction of pupils, equal size. Conjunctiva pink, sclera white. NOSE: Clear with pink turbinates. THROAT: No erythema or exudates. NECK: No masses, no JVD, no thyroid enlargement, no adenopathy. The patient also has a triple lumen catheter in the right IJ. CHEST: No chest wall deformity. Symmetrical expansion. LUNGS: Breath sounds are diminished bilaterally along with some bibasilar crackles. CVS: Regular rate and rhythm, normal S1 and S2, no gallops, no murmurs, no rubs ABDOMEN: Soft, nontender. No hepatosplenomegaly, normal bowel sounds, no guarding or rigidity. EXTREMITIES: No clubbing, no edema, no cyanosis, diminished pulses and upper and lower extremities. The patient has an intra-aortic balloon pump in the right femoral artery and the exit site is clean without evidence of any acute bleeding. MUSCULOSKELETAL: Muscle strength and tone normal. SPINE: No scoliosis or deformity SKIN: No rashes CENTRAL NERVOUS SYSTEM: Alert and oriented -3. No focal deficits, tone is normal in all 4 extremities. PSYCHIATRIC: Alert and oriented -3. Appropriate affect. Intact judgment and insight. - Labs CBC & Chem 7: 08/12/18 04:00 08/12/18 04:00 Labs: Abnormal Lab Results - Last 24 Hours (Table) 08/10/18 08/11/18 08/11/18 Range/Units 22:50 13:20 13:20 WBC 25.2 H (3.8-10.6) k/uL RBC 3.55 L (4.30-5.90) m/uL Hgb 9.8 L (13.0-17.5) gm/dL Hct 31.5 L (39.0-53.0) % RDW 19.7 H (11.5-15.5) % Neutrophils # (Manual) 9.58 H (1.3-7.7) k/uL Monocytes # (Manual) 14.62 H (0-1.0) k/uL Myelocytes # (Manual) 0.25 H (0) k/uL PT (9.0-12.0) sec INR (<1.2) APTT (22.0-30.0) sec ABG pH (7.35-7.45) ABG pO2 (83-108) mmHg ABG HCO3 (21-25) mmol/L ABG O2 Saturation (94-97) % Sodium (137-145) mmol/L Chloride (98-107) mmol/L Carbon Dioxide (22-30) mmol/L BUN (9-20) mg/dL Creatinine (0.66-1.25) mg/dL Glucose (74-99) mg/dL POC Glucose (mg/dL) (75-99) mg/dL Hemoglobin A1c 7.2 H (4.0-6.0) % Calcium (8.4-10.2) mg/dL Total Bilirubin (0.2-1.3) mg/dL AST (17-59) U/L Troponin I 32.200 H* (0.000-0.034) ng/mL Total Protein (6.3-8.2) g/dL Albumin (3.5-5.0) g/dL Urine Protein (Negative) Urine Blood (Negative) Urine RBC (0-5) /hpf Urine WBC (0-5) /hpf Urine Bacteria (None) /hpf Urine Mucus (None) /hpf 08/11/18 08/11/18 08/11/18 Range/Units 13:20 13:20 16:05 WBC (3.8-10.6) k/uL RBC (4.30-5.90) m/uL Hgb (13.0-17.5) gm/dL Hct (39.0-53.0) % RDW (11.5-15.5) % Neutrophils # (Manual) (1.3-7.7) k/uL Monocytes # (Manual) (0-1.0) k/uL Myelocytes # (Manual) (0) k/uL PT 13.8 H (9.0-12.0) sec INR 1.5 H (<1.2) APTT (22.0-30.0) sec ABG pH 7.30 L (7.35-7.45) ABG pO2 72 L (83-108) mmHg ABG HCO3 19 L (21-25) mmol/L ABG O2 Saturation 91.8 L (94-97) % Sodium (137-145) mmol/L Chloride 110 H (98-107) mmol/L Carbon Dioxide 19 L (22-30) mmol/L BUN 36 H (9-20) mg/dL Creatinine 2.04 H (0.66-1.25) mg/dL Glucose 195 H (74-99) mg/dL POC Glucose (mg/dL) (75-99) mg/dL Hemoglobin A1c (4.0-6.0) % Calcium 8.2 L (8.4-10.2) mg/dL Total Bilirubin (0.2-1.3) mg/dL AST (17-59) U/L Troponin I (0.000-0.034) ng/mL Total Protein (6.3-8.2) g/dL Albumin (3.5-5.0) g/dL Urine Protein (Negative) Urine Blood (Negative) Urine RBC (0-5) /hpf Urine WBC (0-5) /hpf Urine Bacteria (None) /hpf Urine Mucus (None) /hpf 08/11/18 08/11/18 08/11/18 Range/Units 16:10 17:53 20:45 WBC 25.9 H (3.8-10.6) k/uL RBC 3.14 L (4.30-5.90) m/uL Hgb 9.0 L (13.0-17.5) gm/dL Hct 27.9 L (39.0-53.0) % RDW 19.8 H (11.5-15.5) % Neutrophils # (Manual) (1.3-7.7) k/uL Monocytes # (Manual) (0-1.0) k/uL Myelocytes # (Manual) (0) k/uL PT (9.0-12.0) sec INR (<1.2) APTT (22.0-30.0) sec ABG pH (7.35-7.45) ABG pO2 (83-108) mmHg ABG HCO3 (21-25) mmol/L ABG O2 Saturation (94-97) % Sodium (137-145) mmol/L Chloride (98-107) mmol/L Carbon Dioxide (22-30) mmol/L BUN (9-20) mg/dL Creatinine (0.66-1.25) mg/dL Glucose (74-99) mg/dL POC Glucose (mg/dL) 206 H 204 H (75-99) mg/dL Hemoglobin A1c (4.0-6.0) % Calcium (8.4-10.2) mg/dL Total Bilirubin (0.2-1.3) mg/dL AST (17-59) U/L Troponin I (0.000-0.034) ng/mL Total Protein (6.3-8.2) g/dL Albumin (3.5-5.0) g/dL Urine Protein (Negative) Urine Blood (Negative) Urine RBC (0-5) /hpf Urine WBC (0-5) /hpf Urine Bacteria (None) /hpf Urine Mucus (None) /hpf 08/11/18 08/12/18 08/12/18 Range/Units 21:20 04:00 04:00 WBC 47.3 H (3.8-10.6) k/uL RBC 2.74 L (4.30-5.90) m/uL Hgb 7.7 L (13.0-17.5) gm/dL Hct 24.3 L (39.0-53.0) % RDW 19.6 H (11.5-15.5) % Neutrophils # (Manual) (1.3-7.7) k/uL Monocytes # (Manual) (0-1.0) k/uL Myelocytes # (Manual) (0) k/uL PT (9.0-12.0) sec INR (<1.2) APTT (22.0-30.0) sec ABG pH (7.35-7.45) ABG pO2 (83-108) mmHg ABG HCO3 (21-25) mmol/L ABG O2 Saturation (94-97) % Sodium 133 L (137-145) mmol/L Chloride (98-107) mmol/L Carbon Dioxide 18 L (22-30) mmol/L BUN 39 H (9-20) mg/dL Creatinine 2.39 H (0.66-1.25) mg/dL Glucose 177 H (74-99) mg/dL POC Glucose (mg/dL) (75-99) mg/dL Hemoglobin A1c (4.0-6.0) % Calcium 7.5 L (8.4-10.2) mg/dL Total Bilirubin 1.5 H (0.2-1.3) mg/dL AST 94 H (17-59) U/L Troponin I (0.000-0.034) ng/mL Total Protein 5.3 L (6.3-8.2) g/dL Albumin 2.8 L (3.5-5.0) g/dL Urine Protein 1+ H (Negative) Urine Blood Moderate H (Negative) Urine RBC >182 H (0-5) /hpf Urine WBC 32 H (0-5) /hpf Urine Bacteria Occasional H (None) /hpf Urine Mucus Rare H (None) /hpf 08/12/18 08/12/18 08/12/18 Range/Units 04:00 07:11 10:42 WBC (3.8-10.6) k/uL RBC (4.30-5.90) m/uL Hgb (13.0-17.5) gm/dL Hct (39.0-53.0) % RDW (11.5-15.5) % Neutrophils # (Manual) (1.3-7.7) k/uL Monocytes # (Manual) (0-1.0) k/uL Myelocytes # (Manual) (0) k/uL PT 14.0 H (9.0-12.0) sec INR 1.5 H (<1.2) APTT 54.4 H (22.0-30.0) sec ABG pH 7.31 L (7.35-7.45) ABG pO2 (83-108) mmHg ABG HCO3 18 L (21-25) mmol/L ABG O2 Saturation (94-97) % Sodium (137-145) mmol/L Chloride (98-107) mmol/L Carbon Dioxide (22-30) mmol/L BUN (9-20) mg/dL Creatinine (0.66-1.25) mg/dL Glucose (74-99) mg/dL POC Glucose (mg/dL) 199 H (75-99) mg/dL Hemoglobin A1c (4.0-6.0) % Calcium (8.4-10.2) mg/dL Total Bilirubin (0.2-1.3) mg/dL AST (17-59) U/L Troponin I (0.000-0.034) ng/mL Total Protein (6.3-8.2) g/dL Albumin (3.5-5.0) g/dL Urine Protein (Negative) Urine Blood (Negative) Urine RBC (0-5) /hpf Urine WBC (0-5) /hpf Urine Bacteria (None) /hpf Urine Mucus (None) /hpf 08/12/18 Range/Units 12:11 WBC (3.8-10.6) k/uL RBC (4.30-5.90) m/uL Hgb (13.0-17.5) gm/dL Hct (39.0-53.0) % RDW (11.5-15.5) % Neutrophils # (Manual) (1.3-7.7) k/uL Monocytes # (Manual) (0-1.0) k/uL Myelocytes # (Manual) (0) k/uL PT (9.0-12.0) sec INR (<1.2) APTT (22.0-30.0) sec ABG pH (7.35-7.45) ABG pO2 (83-108) mmHg ABG HCO3 (21-25) mmol/L ABG O2 Saturation (94-97) % Sodium (137-145) mmol/L Chloride (98-107) mmol/L Carbon Dioxide (22-30) mmol/L BUN (9-20) mg/dL Creatinine (0.66-1.25) mg/dL Glucose (74-99) mg/dL POC Glucose (mg/dL) 274 H (75-99) mg/dL Hemoglobin A1c (4.0-6.0) % Calcium (8.4-10.2) mg/dL Total Bilirubin (0.2-1.3) mg/dL AST (17-59) U/L Troponin I (0.000-0.034) ng/mL Total Protein (6.3-8.2) g/dL Albumin (3.5-5.0) g/dL Urine Protein (Negative) Urine Blood (Negative) Urine RBC (0-5) /hpf Urine WBC (0-5) /hpf Urine Bacteria (None) /hpf Urine Mucus (None) /hpf Microbiology - Last 24 Hours (Table) 08/12/18 05:00 Urine Culture - Preliminary Urine,Catheterized Assessment and Plan Plan: Assessment 1 acute non-ST segment elevation myocardial infarction, status post emergent cardiac catheterization and stenting of the circumflex. 2 acute hypotension, likely cardiogenic shock, post insertion of intra-aortic balloon pump and the patient is currently on a combination of pressors including dopamine and norepinephrine. Dobutamine was also added upon doctor assistant's request. The patient has an intra-aortic balloon pump with a one -to-one augmentation 3 CHF with cardiomyopathy severe ischemic in nature and the patient has an AICD in place. Echocardiogram was done and the patient has an ejection fraction of 3035%. The LAD is severely dilated. No significant pulmonary hypertension. 4 acute hypoxic respiratory failure secondary to CHF/edema and the patient is currently on 5 L per minute nasal cannula 5 acute on chronic kidney injury. Acute worsening in renal function could be related to contrast and hypotension. Rule out development of an ATN. The patient is nonoliguric and the patient is producing urine output which is adequate for now more than 30 mL an hour 6 diabetes mellitus type 2 7 COPD 8 chronic smoker 9 history of ITP 10 anemia with interval drop in hemoglobin down to 7.7, likely secondary to blood loss from puncture sites 11 acute leukocytosis, rule out reactive leukocytosis secondary to stress, rule out underlying infection/pneumonia/UTI PANDA Obtain blood cultures. Obtain urine cultures. Antibiotic coverage with IV Zosyn. Continue hemodynamic support and use a combination of norepinephrine and dopamine for now per cardiology recommendation. Dobutamine is also on board. Hold Coreg for now. Lasix therapy for diabetes is at a dose of 80 mg IV push every 12 hours. Monitor urine output. Monitor renal function. Continue the intra-aortic pump hemodynamic support and the patient can be moved to 1-2 augmentation. The patient will be kept on 5 L of oxygen by nasal cannula. Obtain sputum Gram stain and culture if possible. Cardiology is on the case. We'll continue to follow and make further recommendations based on his progress. Condition is critical for now. This evaluation was done more than 30 minutes. Time with Patient: Greater than 30
--- NOTE | 2018-08-12 14:27 | CDI ---
Last Revision, August 2017 Documentation Clarification Form Date: 08/12/2018 2:10:49 PM From: Liz TurnerFranciscoIZABEL chaudhry, CCDS Admit Date: 08/10/2018 10:42:00 PM Patient Name: Juve Escudero Visit Number: [id number] Discharge Date: ATTENTION: The Clinical Documentation Specialists (CDI) and [facility] Coding Staff appreciate your assistance in clarifying documentation. Please respond to the clarification below the line at the bottom and electronically sign. The CDI & [facility] Coding staff will review the response and follow-up if needed. Please note: Queries are made part of the Legal Health Record. If you have any questions, please contact the author of this message via ITS. Syd Horton MD: Per the 08/12 Pulmonary progress note: "Anemia with interval drop in hemoglobin down to 7.7, likely secondary to blood loss from puncture sites." History/Risk Factors: CAD with previous stent, CHF w/severe ischemic cardiomyopathy & AICD, CKD nos, DM II, COPD, smoker. Clinical indicators: Presented with NSTEMI due to in-stent stenosis of the circumflex artery, to labor law professor for LHC with PTCA & stent & IAPB placement. Hgb dropped postoperatively, bleeding from the puncture site, controlled. Hemoglobin: 10.6 - 7.7 Hematocrit: 34.4 - 24.3 Treatment: IV Heparin, IV Ms, IV Reglan. Postop: IV Lasix, Albuterol INH, IV MagSulf, IV Zosyn In order to capture the severity of condition, please clarify the type of anemia and etiology if known: Acute blood loss anemia Acute on chronic blood loss anemia Chronic blood loss anemia Iron deficiency anemia Hemolytic anemia Drug induced anemia Anemia of chronic kidney disease Unable to determine Other, please specify Also, in your professional opinion, was the patient's blood loss anemia an expected or unexpected outcome of the procedure(s) performed: Expected outcome, due to: Unexpected outcome, due to: Other, please specify Unknown or undetermined Acute blood loss anemia, Expected outcome, due to bleeding from puncture site MTDD
[2018-08-12] MEDS: IPRATROPIUM-ALBUTEROL 3 ML NEB INHALATION PRN (15:57)
[2018-08-12] MEDS: DEXTROSE/WATER 1 500ML.BAG with DOPamine DRIP 800 MG IV SCH ×2 (16:02→16:05)
--- NOTE | 2018-08-12 16:07 | P.PN ---
Subjective This patient is status post non-ST segment elevation myocardial infarction and ischemic cardiomyopathy. Patient is status post stent to the circumflex coronary artery patient had intra-aortic balloon placement patient is laying comfortably in the bed denies any chest pain patient is on multiple vasopressors urine output is 30-40 mL/h is and is not febrile but his white count is increased to 40,000 creatinine is 2.35 chest x-ray is suggestive of mild congestive heart failure Objective - Vital Signs Vital signs: Vital Signs Temp 97.8 F 08/12/18 16:00 Pulse 74 08/12/18 16:00 Resp 23 08/12/18 16:00 BP 93/49 08/12/18 16:00 Pulse Ox 96 08/12/18 16:00 Intake & Output 08/11/18 08/12/18 08/12/18 18:59 06:59 18:59 Intake Total 400.218 1386.183 798.311 Output Total 780 660 360 Balance -53.382 1155.183 438.311 Weight 110 kg Intake: IV 673.18 823.2 534.8 DOBUTamine DRIP 500 mg In 33.2 99.6 52.4 Dextrose/Water 1 250ml. bag @ 2.5 MCG/KG/MIN 8.26 mls/hr IV .Q24H [facility] Rx#: [id number] DOPamine DRIP 800 mg In 72.1 123.6 82.4 Dextrose/Water 1 500ml. bag @ 0 mls/hr IV .STK- [facility] Rx#:[id number] Piperacillin-Tazobactam 3 100 .375 gm In Sodium Chloride 0.9% 100 ml @ 25 mls/hr IVPB Q8HR [facility] Rx# :[id number] Sodium Chloride 0.9% 1, 160 000 ml @ 125 mls/hr IV . Q8H [facility] Rx#:[id number] Sodium Chloride 0.9% 1, 350 600 300 000 ml @ 50 mls/hr IV . Q20H [facility] Rx#:[id number] Intake, IV Titration 53.438 31.983 143.511 Amount Norepinephrine 16 mg In 31.983 143.511 Sodium Chloride 0.9% 250 ml @ Titrate IV .Q0M [facility] Rx#:[id number] Norepinephrine 4 mg In 53.438 Sodium Chloride 0.9% 250 ml @ Titrate IV .Q0M [facility] Rx#:[id number] Oral 960 120 Output: Urine 780 660 360 Other: Voiding Method Bedside Commode Bedside Commode Indwelling Catheter # Voids 1 1 # Bowel Movements 1 1 ABP, PAP, CO, CI - Last Documented Arterial Blood Pressure 88/43 - Exam Patient is laying comfortably in bed. Patient's vital signs are reviewed. The patient is alert awake and in no acute distress. HEENT negative. Neck-supple no increase in JVP noted no carotid bruits noted. Chest-symmetrical. Heart-first and second heart sounds are normal. No S3 or S4 is noted. No significant murmurs are noted. Lungs bilateral good at entry is noted. No rales or rhonchi are noted Abdomen-soft. Liver and spleen are not enlarged. The bowel sounds are normal. No tenderness noted Extremities-peripheral pulses since are 2+. No significant leg edema noted. Neuro-no significant gross abnormality noted. - Labs CBC & Chem 7: 08/12/18 04:00 08/12/18 04:00 Labs: Abnormal Lab Results - Last 24 Hours (Table) 08/11/18 08/11/18 08/11/18 Range/Units 13:20 16:05 16:10 WBC (3.8-10.6) k/uL RBC (4.30-5.90) m/uL Hgb (13.0-17.5) gm/dL Hct (39.0-53.0) % RDW (11.5-15.5) % PT 13.8 H (9.0-12.0) sec INR 1.5 H (<1.2) APTT (22.0-30.0) sec ABG pH 7.30 L (7.35-7.45) ABG pO2 72 L (83-108) mmHg ABG HCO3 19 L (21-25) mmol/L ABG O2 Saturation 91.8 L (94-97) % Sodium (137-145) mmol/L Carbon Dioxide (22-30) mmol/L BUN (9-20) mg/dL Creatinine (0.66-1.25) mg/dL Glucose (74-99) mg/dL POC Glucose (mg/dL) 206 H (75-99) mg/dL Calcium (8.4-10.2) mg/dL Total Bilirubin (0.2-1.3) mg/dL AST (17-59) U/L Total Protein (6.3-8.2) g/dL Albumin (3.5-5.0) g/dL Urine Protein (Negative) Urine Blood (Negative) Urine RBC (0-5) /hpf Urine WBC (0-5) /hpf Urine Bacteria (None) /hpf Urine Mucus (None) /hpf 08/11/18 08/11/18 08/11/18 Range/Units 17:53 20:45 21:20 WBC 25.9 H (3.8-10.6) k/uL RBC 3.14 L (4.30-5.90) m/uL Hgb 9.0 L (13.0-17.5) gm/dL Hct 27.9 L (39.0-53.0) % RDW 19.8 H (11.5-15.5) % PT (9.0-12.0) sec INR (<1.2) APTT (22.0-30.0) sec ABG pH (7.35-7.45) ABG pO2 (83-108) mmHg ABG HCO3 (21-25) mmol/L ABG O2 Saturation (94-97) % Sodium (137-145) mmol/L Carbon Dioxide (22-30) mmol/L BUN (9-20) mg/dL Creatinine (0.66-1.25) mg/dL Glucose (74-99) mg/dL POC Glucose (mg/dL) 204 H (75-99) mg/dL Calcium (8.4-10.2) mg/dL Total Bilirubin (0.2-1.3) mg/dL AST (17-59) U/L Total Protein (6.3-8.2) g/dL Albumin (3.5-5.0) g/dL Urine Protein 1+ H (Negative) Urine Blood Moderate H (Negative) Urine RBC >182 H (0-5) /hpf Urine WBC 32 H (0-5) /hpf Urine Bacteria Occasional H (None) /hpf Urine Mucus Rare H (None) /hpf 08/12/18 08/12/18 08/12/18 Range/Units 04:00 04:00 04:00 WBC 47.3 H (3.8-10.6) k/uL RBC 2.74 L (4.30-5.90) m/uL Hgb 7.7 L (13.0-17.5) gm/dL Hct 24.3 L (39.0-53.0) % RDW 19.6 H (11.5-15.5) % PT 14.0 H (9.0-12.0) sec INR 1.5 H (<1.2) APTT 54.4 H (22.0-30.0) sec ABG pH (7.35-7.45) ABG pO2 (83-108) mmHg ABG HCO3 (21-25) mmol/L ABG O2 Saturation (94-97) % Sodium 133 L (137-145) mmol/L Carbon Dioxide 18 L (22-30) mmol/L BUN 39 H (9-20) mg/dL Creatinine 2.39 H (0.66-1.25) mg/dL Glucose 177 H (74-99) mg/dL POC Glucose (mg/dL) (75-99) mg/dL Calcium 7.5 L (8.4-10.2) mg/dL Total Bilirubin 1.5 H (0.2-1.3) mg/dL AST 94 H (17-59) U/L Total Protein 5.3 L (6.3-8.2) g/dL Albumin 2.8 L (3.5-5.0) g/dL Urine Protein (Negative) Urine Blood (Negative) Urine RBC (0-5) /hpf Urine WBC (0-5) /hpf Urine Bacteria (None) /hpf Urine Mucus (None) /hpf 08/12/18 08/12/18 08/12/18 Range/Units 07:11 10:42 12:11 WBC (3.8-10.6) k/uL RBC (4.30-5.90) m/uL Hgb (13.0-17.5) gm/dL Hct (39.0-53.0) % RDW (11.5-15.5) % PT (9.0-12.0) sec INR (<1.2) APTT (22.0-30.0) sec ABG pH 7.31 L (7.35-7.45) ABG pO2 (83-108) mmHg ABG HCO3 18 L (21-25) mmol/L ABG O2 Saturation (94-97) % Sodium (137-145) mmol/L Carbon Dioxide (22-30) mmol/L BUN (9-20) mg/dL Creatinine (0.66-1.25) mg/dL Glucose (74-99) mg/dL POC Glucose (mg/dL) 199 H 274 H (75-99) mg/dL Calcium (8.4-10.2) mg/dL Total Bilirubin (0.2-1.3) mg/dL AST (17-59) U/L Total Protein (6.3-8.2) g/dL Albumin (3.5-5.0) g/dL Urine Protein (Negative) Urine Blood (Negative) Urine RBC (0-5) /hpf Urine WBC (0-5) /hpf Urine Bacteria (None) /hpf Urine Mucus (None) /hpf Microbiology - Last 24 Hours (Table) 08/12/18 05:00 Urine Culture - Preliminary Urine,Catheterized Assessment and Plan Assessment: This patient Corina status post non-ST segment elevation myocardial infarction with a severely impaired left ventricular systolic function. And currently remains in the cardiogenic shock. We will discontinue patient's Coreg and sotalol at present we will give patient Lasix 80 mg IV every 12 hourly the cultures are obtained. We will try to wean him off the dopamine and continue the patient on Levophed and dobutamine. Patient's CVP was about 18 mm is overall prognosis is very poor
[2018-08-12 17:20] LABS: Glucose,Whole Blood 245 mg/dL (75-99)
[2018-08-12] MEDS: HEPARIN SOD,PORK IN 0.45% NACL 25,000 UNIT in 0.45% NACL 1 500ML.BAG IV SCH ×2 (17:24→20:36)
[2018-08-12] MEDS: DOBUTamine DRIP 500 MG in DEXTROSE/WATER 1 250ML.BAG IV SCH (17:36)
[2018-08-12] MEDS: IPRATROPIUM-ALBUTEROL 3 ML NEB INHALATION SCH (19:23)
[2018-08-12] MEDS: FUROSEMIDE 10 MG/ML 10 ML VIAL IV SCH (20:36)
[2018-08-12] MEDS: SODIUM BICARBONATE TAB 650 MG TAB PO SCH (20:36)
[2018-08-12 20:42] LABS: Glucose,Whole Blood 230 mg/dL (75-99)
[2018-08-12] MEDS: ALPRAZolam 0.25 MG TAB PO PRN (21:06)
--- NOTE | 2018-08-12 22:54 | CONS ---
CONSULTATION Patient was seen this morning for renal failure. HISTORY OF PRESENT ILLNESS: The patient is a 73-year-old male who was admitted to the hospital with complaints of chest pain and shortness of breath. He has underlying history of coronary artery disease. The patient ruled in for non ST elevation IA. He had a cardiac catheterization on August 11 which showed a critical lesion in the stent in the proximal circumflex artery. The patient had a stent placed later on yesterday. He also had a balloon pump. The echocardiogram shows ejection fraction of 35-40 percent. Left atrium is severely dilated. The patient has been hypotensive. He is currently about on 12 mics of Levophed. He is also maintained on a small dose of dopamine at 2.5 mics and dobutamine at 2.5 mcg. Urine output is at about 40-35 mL an hour. Serum creatinine was 1.64 on initial admission, it went up to 2.0 yesterday and today it is at 2.3 mg/dL. The patient was on Cozaar, which is currently on hold. No history of use of NSAIDs. PAST MEDICAL HISTORY: Significant for coronary artery disease, CHF, cardiomyopathy, and history of prostatic cancer status post radiation therapy, history of IA and cardiac dysrhythmia. Degenerative joint disease. PAST SURGICAL HISTORY: AICD placement, appendectomy, cholecystectomy, cardiac catheterization, stent placement, pacemaker placement. SOCIAL HISTORY: Patient is a former smoker. No history of drug abuse or alcohol abuse. MEDICATIONS: Medications at home include Lipitor, aspirin, Coreg, Onglyza, Betapace, Plavix, Cozaar, Zofran, and Guaifenesin. ALLERGIES: None. REVIEW OF SYSTEMS: As per HPI. Other systems negative. EXAMINATION: Patient is currently lying in bed. He is comfortable. He is not in any acute distress. This morning when he was seen, augmented blood pressure was around 85 mmHg. Heart rate staying about 70-79 per minute. Patient is afebrile. Examination of the heart S1, S2. Examination of the lungs bilateral breath sounds are heard. Decreased breath sounds at the bases. Abdomen is soft, nontender. Examination of the lower extremities shows no significant edema. EQUITY STRUCTURER exam is grossly intact. LAB: Show sodium 133, potassium 4.4, chloride 107, BUN 39, serum creatinine 2.39, phosphorus 3.7, calcium 7.5, hemoglobin was 7.7 g/dL. ASSESSMENT: 1. Acute kidney injury secondary to hypotension hypoperfusion. The patient will also have a component of dye induced acute tubular necrosis in another day or so. He is currently nonoliguric and he appears mildly hypervolemic today. I will give a dose of Lasix at 60 mg. The ejection fraction is on the lower side and patient is maintained on dobutamine. At this time, we will try and discontinue the dopamine and try to wean off the Levophed as well. 2. Status post myocardial infarction, status post cardiac catheterization and coronary stent placement. 3. Hypotension, mainly cardiogenic, currently on intra-aortic balloon pump. 4. Metabolic acidosis. Will start patient on sodium bicarb. Etiology is renal failure. 5. Cardiomyopathy, ejection fraction 35-40 percent. 6. Anemia with no active bleeding noted. The patient has an intra-aortic balloon pump. Continue to monitor his hemoglobin and monitor for any gastrointestinal bleed. He is maintained on anticoagulation. PLAN: Lasix x1. We will try to wean off the dopamine. He is only on 2.5 mcg. The patient probably does not need the dopamine. I will continue the dobutamine for now to help with diuresis and cardiorenal syndrome. His ejection fraction is low. Therefore, we can continue with the dobutamine for now. Avoid nephrotoxic agents. Repeat labs in a.m. Start oral sodium bicarb. Thank you for the consultation. We will continue to follow the patient with you during his hospitalization in plan. MMSHOLAL / TAE: [id number] /
[2018-08-13] MEDS: NOREPINEPHRINE 16 MG in SODIUM CHLORIDE 0.9% 250 ML IV SCH ×2 (02:07→23:51)
[2018-08-13] MEDS: SALINE 1 500ML.BAG with HEPARIN SODIUM,PORCINE/NS/PF 1,000 UNIT IV ONE (02:26)
[2018-08-13] MEDS: SODIUM CHLORIDE 0.9% 1,000 ML IV SCH ×2 (04:23→23:48)
[2018-08-13 04:37] LABS: Anisocytosis Slight; HCT 23.8 % (39.0-53.0); HGB 7.6 gm/dL (13.0-17.5); Hypochromasia Moderate; MCH 28.3 pg (25.0-35.0); MCV 88.4 fL (80.0-100.0); Mean Platelet Volume 11.4; Platelet Count 257 k/uL (150-450); Poikilocytosis Slight; RBC 2.69 m/uL (4.30-5.90); WBC 31.9 k/uL (3.8-10.6)
[2018-08-13 04:48] LABS: INR 1.4 (<1.2); Partial Thromboplastin Time 67.1 sec (22.0-30.0); Prothrombin Time 12.9 sec (9.0-12.0)
[2018-08-13 05:01] LABS: Magnesium 1.8 mg/dL (1.6-2.3); Phosphorus 3.7 mg/dL (2.5-4.5)
[2018-08-13] MEDS: INSULIN ASPART 100 UNIT/ML 1 ML 10 ML VIAL SQ SCH ×4 (07:06→21:16)
[2018-08-13 07:10] LABS: Glucose,Whole Blood 195 mg/dL (75-99)
--- NOTE | 2018-08-13 07:39 | CDI ---
Last Revision, August 2017 Documentation Clarification Form Date: 08/13/2018 7:18:45 AM From: Liz TurnerFranciscoIZABEL chaudhry, CCDS Admit Date: 08/10/2018 10:42:00 PM Patient Name: Juve Escudero Visit Number: [id number] Discharge Date: ATTENTION: The Clinical Documentation Specialists (CDI) and [facility] Coding Staff appreciate your assistance in clarifying documentation. Please respond to the clarification below the line at the bottom and electronically sign. The CDI & [facility] Coding staff will review the response and follow-up if needed. Please note: Queries are made part of the Legal Health Record. If you have any questions, please contact the author of this message via ITS. Nicko Arreguin MD: Per the 08/11 History & Physical: "Acute congestive heart failure exacerbation, underlying coronary artery disease. Currently EF not known." Per the 08/11 Pulmonary Consult: "Interstitial prominence, small left pleural effusion, changes consistent with fluid overload and congestive heart failure, noted on chest x-ray." Per the 08/12 Pulmonary progress note: "...chest x-ray is suggestive of mild CHF." History/Risk Factors: Ischemic Cardiomyopathy with AICD, CAD with previous stent , ITP, Colonic diverticulosis, Obesity (BMI 33). Clinical Indicators: Presented with NSTEMI & re-stenosis of circumflex stent, status post LHC, PTCA w/stent & required IAPB, remains in cardiogenic shock per cardiology. Per nephrology: cardiorenal syndrome. Admission VS: P 56, BP 104/65-93/43, PO 94 ra LAB: WBC 14.2^, Hgb 10.6*, PT 12.3^, INR 1.3^, K 5.2^, BUN 33^, Cr 1.64^, Gluc 226^, Hgb A1c 7.2^, Mag 1.5*, CKMB 20.5^, Trop 4.0^^. Echocardiogram Results (08/11): EF 35-40% systolic function moderately impaired. Chest X Ray 08/10: No active cardiopulmonary disease. 08/11: Correlate for possible pulmonary venous hypertension & interstitial edema. Repeat 08/12: Bilateral consolidation & pleural effusion correlate for CHF. 08/13 CXR pending. Treatment: slab tripper for LHC, PTCA w/stent lt circumflex & required IAPB. IV Heparin, IV Ms, IV MagSulfate, IV Lasix started 08/11, continued; IV Zosyn. Remains in ICU. In your professional opinion, can you please clarify the acuity and type of CHF if known? Systolic Heart Failure: o Acute, Chronic, Acute on Chronic Diastolic Heart Failure: o Acute, Chronic, Acute on Chronic Systolic & Diastolic Heart Failure: o Acute, Chronic, Acute on Chronic Heart Failure Unable to Determine Other, please specify MTDD
[2018-08-13] MEDS: ELTROMBOPAG PO SCH ×2 (07:51→08:19)
--- NOTE | 2018-08-13 08:01 | PN ---
PROGRESS NOTE DATE OF SERVICE: 08/12/2018 PRESENTING COMPLAINT: Tired. INTERVAL HISTORY: This is a patient presented with acute non ST elevation myocardial infarction with coronary intervention. Patient also in cardiogenic shock and acute renal failure, pretty much been on bedrest. Patient drips include Levophed and dopamine and dobutamine at 2.5 mcg. Lying in bed, tired. REVIEW OF SYSTEMS: Done for constitutional, cardiovascular, GI, pulmonary; relevant findings as above. CURRENT MEDICATIONS: Reviewed including as above. PHYSICAL EXAMINATION: Temperature 97, pulse 77, respirations 18, blood pressure 86/39, pulse ox 94% on 6 L. GENERAL APPEARANCE: Lying in bed, tired-appearing. EYES: Pupils equal, conjunctivae are pale. HEENT: External appearance of nose and ears normal, oral cavity normal. NECK: JVD unable to assess. Mass not palpable. RESPIRATORY EFFORT: Increased lungs decreased breath sounds. CARDIOVASCULAR: First and second sounds are normal,no edema. ABDOMEN: Soft, nontender. Liver and spleen not palpable. PSYCHIATRY: Alert and oriented x3. Mood and affect normal. INVESTIGATIONS: White count 47.3, hemoglobin 7.7, potassium 4.4, BUN 29, creatinine 2.39. ASSESSMENT: 1. Acute non ST elevation myocardial infarction with stent to the circumflex. 2. Coronary artery disease with prior stent in April of 2018. 3. AICD. 4. ITP. 5. Colonic diverticulosis asymptomatic. 6. Primary osteoarthritis, lower back. 7. Obesity; body mass index of 33. 8. Acute renal failure, probably acute tubular necrosis and also contribution from hypertension. Patient also has got a dye insult from the cardiac cath, worsening. 9. Acute metabolic acidosis from renal failure. 10.Hyperkalemia due to renal failure. 11.Normocytic anemia cause unknown. 12.Acute congestive heart failure from underlying coronary artery disease, ejection fraction 35%-40%. .. PLAN: Prognosis remains guarded. Talked to the patient's son at the bedside. The patient did receive IV Lasix earlier. Also remains on dopamine, dobutamine, epinephrine. Remains in the ICU, critically ill. MMODL / IJN: [id number] /
[2018-08-13] MEDS: PANTOPRAZOLE 40 MG/10 ML VIAL IV SCH (08:10)
[2018-08-13] MEDS: PIPERACILLIN-TAZOBACTAM 3.375 GM in SODIUM CHLORIDE 0.9% 100 ML IVPB SCH ×3 (08:10→23:48)
[2018-08-13] MEDS: FUROSEMIDE 10 MG/ML 10 ML VIAL IV SCH ×2 (08:10→21:15)
[2018-08-13] MEDS: ATORVASTATIN 40 MG TAB PO SCH (08:11)
[2018-08-13] MEDS: SODIUM BICARBONATE TAB 650 MG TAB PO SCH ×2 (08:11→21:16)
[2018-08-13] MEDS: ASPIRIN 81 MG PO SCH (08:11)
[2018-08-13] MEDS: CLOPIDOGREL 75 MG TAB PO SCH (08:17)
[2018-08-13] MEDS: IPRATROPIUM-ALBUTEROL 3 ML NEB INHALATION SCH ×2 (08:26→20:13)
--- NOTE | 2018-08-13 10:08 | P.PN ---
Subjective Progress Note Date: 08/13/18 Principal diagnosis: Acute non-ST segment elevation myocardial infarction status post stenting of the circumflex and insertion of intra-aortic balloon pump On 08/12/2018 the patient is being seen for a follow-up. The patient is known to have coronary artery disease and he is post acute non-ST segment elevation myocardial infarction. He has severe ischemic artery myopathy and is post AICD placement. The patient was taken to [facility] yesterday and underwent stenting of the circumflex, and intra-aortic balloon pump was inserted and following that the patient was transferred to the intensive care unit. Initially the patient was on a intra-aortic balloon pump with a one-to-one ratio augmentation. The patient was also on a combination of pressors including dopamine 2.5 g per KG per minute, norepinephrine infusion running at 12 g per KG per minute and dobutamine. A triple lumen catheter inserted in the CVP was above 12 consistently. The patient was started on diuretics and the patient produced adequate amount of urine output over the past when he 4 hours and currently the patient negative fluid balance. His morning the patient is on 6 L of oxygen by nasal cannula. Intra-aortic balloon pump is still maintained. The augmented blood pressure was 70. The patient is still on the same pressor doses. He was having some increased cough and congestion and some sputum production without any fever. White cell count was noted to be high this morning and based on that the patient was started on empiric antibiotic coverage with IV Zosyn . It was noted the patient's hemoglobin dropped down to 7.7. The patient was having blood wasn't from the puncture sites including the intra-aortic balloon puncture site and the right IJ triple-lumen catheter puncture site. The bleeding was controlled. IV heparin was resumed. It's likely that hemoglobin drop was secondary to the blood loss from the skin surface. On today's evaluation, he is alert and awake. He denies having any chest pain. No significant shortness of breath. Chest x-ray from this morning shows bilateral consolidation pleural effusions consistent with CHF. The net fluid balance over the past 24 hours is +946 mL and the patient remains in a positive fluid balance of 1.1 L for today. Otherwise, no other significant events. Adequate pulses in all 4 extremities. The patient is seen today 08/13/2018 in follow-up in the intensive care unit. He is currently awake and alert in no acute distress. He denies any chest pain , palpitations lightheadedness or dizziness. He remains in atrial fibrillation with occasional ventricular pacing. He remains on norepinephrine at 12 mcg/m. His was a size 22 mcg/m last evening. He is on dobutamine at 2.5 mcg/kg/m. Dopamine has been discontinued. He remains with the intra-aortic balloon pump maintaining augmented pressures of 65. He is on a 1:3 ratio this morning. He denies any worsening shortness of breath, cough or congestion. He is maintaining O2 saturations in the mid 90s on 3 L/m per nasal cannula. Maintaining mean arterial pressures in the 60s. CVP 19. White count 31.9. Hemoglobin 7.6. INR 1.4. Basic metabolic panel pending. Creatinine He is having issues with diarrhea. C. difficile toxin screen was negative 2. Blood culture reveals no growth. Urine and sputum cultures are pending. Current temp 100.4 axillary. He remains on Zosyn. Objective - Vital Signs Vital signs: Vital Signs Temp 98.7 F 08/13/18 04:00 Pulse 78 08/13/18 08:37 Resp 22 08/13/18 07:00 BP 103/46 08/13/18 06:00 Pulse Ox 94 L 08/13/18 08:28 Intake & Output 08/12/18 08/13/18 08/13/18 18:59 06:59 18:59 Intake Total 3322.150 3091.188 219.333 Output Total 630 926 60 Balance 4684.272 8167.188 159.333 Weight 110 kg Intake: IV 782.7 660 56 DOBUTamine DRIP 500 mg In 65.0 Dextrose/Water 1 250ml. bag @ 2.5 MCG/KG/MIN 8.26 mls/hr IV .Q24H [facility] Rx#: [id number] DOPamine DRIP 800 mg In 92.7 0 Dextrose/Water 1 500ml. bag @ 0 mls/hr IV .STK- [facility] Rx#:[id number] Piperacillin-Tazobactam 3 200 25 .375 gm In Sodium Chloride 0.9% 100 ml @ 25 mls/hr IVPB Q8HR [facility] Rx# :[id number] Sodium Chloride 0.9% 1, 425 575 50 000 ml @ 50 mls/hr IV . Q20H [facility] Rx#:[id number] pressure bags 60 6 Intake, IV Titration 794.405 568.188 43.333 Amount DOBUTamine DRIP 500 mg In 219.716 Dextrose/Water 1 250ml. bag @ 2.5 MCG/KG/MIN 8.26 mls/hr IV .Q24H [facility] Rx#: [id number] Heparin Sod,Pork in 0.45% 398 264.333 43.333 NaCl 25,000 unit In 0.45 % NaCl 1 500ml.bag @ 9. 073 UNITS/KG/HR 20 mls/hr IV .Q24H [facility] Rx#: [id number] Norepinephrine 16 mg In 176.689 103.855 Sodium Chloride 0.9% 250 ml @ Titrate IV .Q0M [facility] Rx#:[id number] Piperacillin-Tazobactam 3 200 .375 gm In Sodium Chloride 0.9% 100 ml @ 25 mls/hr IVPB Q8HR [facility] Rx# :[id number] Oral 360 720 120 Output: Urine 630 745 60 Stool 181 Other: Voiding Method Indwelling Catheter Indwelling Catheter # Voids 1 # Bowel Movements 1 100 ABP, PAP, CO, CI - Last Documented Arterial Blood Pressure 83/48 - Exam GENERAL EXAM: Alert, pleasant, 73-year-old obese white male comfortable in no apparent distress. The patient is resting comfortably in bed on oxygen at 5 L per minute nasal cannula. HEAD: Normocephalic/atraumatic. EYES: Normal reaction of pupils, equal size. Conjunctiva pink, sclera white. NOSE: Clear with pink turbinates. THROAT: No erythema or exudates. NECK: No masses, no JVD, no thyroid enlargement, no adenopathy. The patient also has a triple lumen catheter in the right IJ. CHEST: No chest wall deformity. Symmetrical expansion. LUNGS: Breath sounds are diminished bilaterally along with some bibasilar crackles. CVS: Regular rate and rhythm, normal S1 and S2, no gallops, no murmurs, no rubs ABDOMEN: Soft, nontender. No hepatosplenomegaly, normal bowel sounds, no guarding or rigidity. EXTREMITIES: No clubbing, no edema, no cyanosis, diminished pulses and upper and lower extremities. The patient has an intra-aortic balloon pump in the right femoral artery and the exit site is clean without evidence of any acute bleeding. MUSCULOSKELETAL: Muscle strength and tone normal. SPINE: No scoliosis or deformity SKIN: No rashes CENTRAL NERVOUS SYSTEM: Alert and oriented -3. No focal deficits, tone is normal in all 4 extremities. PSYCHIATRIC: Alert and oriented -3. Appropriate affect. Intact judgment and insight. - Labs CBC & Chem 7: 08/13/18 04:00 08/12/18 04:00 Labs: Abnormal Lab Results - Last 24 Hours (Table) 08/12/18 08/12/18 08/12/18 Range/Units 10:42 12:11 17:08 WBC (3.8-10.6) k/uL RBC (4.30-5.90) m/uL Hgb (13.0-17.5) gm/dL Hct (39.0-53.0) % RDW (11.5-15.5) % PT (9.0-12.0) sec INR (<1.2) APTT (22.0-30.0) sec ABG pH 7.31 L (7.35-7.45) ABG HCO3 18 L (21-25) mmol/L POC Glucose (mg/dL) 274 H 245 H (75-99) mg/dL 08/12/18 08/13/18 08/13/18 Range/Units 20:32 04:00 04:00 WBC 31.9 H (3.8-10.6) k/uL RBC 2.69 L (4.30-5.90) m/uL Hgb 7.6 L (13.0-17.5) gm/dL Hct 23.8 L (39.0-53.0) % RDW 20.0 H (11.5-15.5) % PT 12.9 H (9.0-12.0) sec INR 1.4 H (<1.2) APTT 67.1 H (22.0-30.0) sec ABG pH (7.35-7.45) ABG HCO3 (21-25) mmol/L POC Glucose (mg/dL) 230 H (75-99) mg/dL 08/13/18 Range/Units 06:54 WBC (3.8-10.6) k/uL RBC (4.30-5.90) m/uL Hgb (13.0-17.5) gm/dL Hct (39.0-53.0) % RDW (11.5-15.5) % PT (9.0-12.0) sec INR (<1.2) APTT (22.0-30.0) sec ABG pH (7.35-7.45) ABG HCO3 (21-25) mmol/L POC Glucose (mg/dL) 195 H (75-99) mg/dL Microbiology - Last 24 Hours (Table) 08/12/18 05:00 Blood Culture - Preliminary Blood No Growth after 24 hours 08/12/18 04:50 Blood Culture - Preliminary Blood No Growth after 24 hours 08/12/18 06:25 Gram Stain - Preliminary Sputum 08/12/18 05:00 Urine Culture - Preliminary Urine,Catheterized Assessment and Plan Assessment: Assessment 1 acute non-ST segment elevation myocardial infarction, status post emergent cardiac catheterization and stenting of the circumflex. 2 acute hypotension, likely cardiogenic shock, post insertion of intra-aortic balloon pump and the patient is currently on a combination of pressors including dopamine and norepinephrine. Dobutamine was also added upon food stand manager's request. The patient has an intra-aortic balloon pump with a one -to-three augmentation 3 CHF with cardiomyopathy severe ischemic in nature and the patient has an AICD in place. Echocardiogram was done and the patient has an ejection fraction of 3035%. The LAD is severely dilated. No significant pulmonary hypertension. 4 acute hypoxic respiratory failure secondary to CHF/edema and the patient is currently on 5 L per minute nasal cannula 5 acute on chronic kidney injury. Acute worsening in renal function could be related to contrast and hypotension. Rule out development of an ATN. The patient is nonoliguric and the patient is producing urine output which is adequate for now more than 30 mL an hour 6 diabetes mellitus type 2 7 COPD 8 chronic smoker 9 history of ITP 10 acute blood loss anemia with interval drop in hemoglobin down to 7.7, likely secondary to blood loss from puncture sites, and an expected outcome. 11 acute leukocytosis, rule out reactive leukocytosis secondary to stress, rule out underlying infection/pneumonia/UTI Plan: The patient was seen and evaluated by Dr. Yi. Chest x-ray and labs were reviewed. Patient remains on norepinephrine and dobutamine. Remains on IV diuretics. Remains on IV antibiotics. C. difficile screen has been negative 2. We'll continue with his current treatment plan. Await culture results. Cardiology is on the case and may remove the balloon pump today. He's currently on a 1:3 ratio augmentation. We'll continue to monitor him here closely in the intensive care unit. His overall prognosis remains guarded. Critical care time 35 minutes. I, the cosigning physician, performed a history & physical examination of the patient. Lungs sounds with crackles in the bilateral posterior bases. Maintaining good O2 saturations in the 90s on 3 L/m per nasal cannula. I discussed the assessment and plan of care with my nurse practitioner, Giovana Samuels. I attest to the above note as dictated by her. Time with Patient: Greater than 30
[2018-08-13 10:14] LABS: Albumin 2.7 g/dL (3.5-5.0); Calcium 7.1 mg/dL (8.4-10.2); Potassium 3.9 mmol/L (3.5-5.1); Total Protein 5.3 g/dL (6.3-8.2)
[2018-08-13] MEDS ORDERED: POTASSIUM CHLORIDE ER 20 MEQ TAB.ER PO STA (10:31)
[2018-08-13] MEDS ORDERED: MAGNESIUM SULFATE-D5W PMX 1 GM in DEXTROSE/WATER 1 100ML.BAG IVPB ONE (10:32)
--- NOTE | 2018-08-13 10:44 | P.PN ---
Subjective Patient is seen in follow-up for acute kidney injury on chronic kidney disease. Patient has chronic kidney disease stage III with baseline creatinine in the range of 1.1-1.3 secondary to nephrosclerosis. Creatinine today is up to 2.6. Patient had a cardiac catheterization on August 11 and had a stent placed to the proximal circumflex. He has an intra-aortic balloon pump in place at this time. He's on 12 mics of Levophed. He is also on dobutamine. He is maintained on Lasix 80 mg IV twice daily and is diuresing well. Denies any active chest pain or shortness of breath. Vital signs are stable. General: The patient appeared well nourished and normally developed. HEENT: Head exam is unremarkable. Neck is without jugular venous distension. LUNGS: Lungs are clear to auscultation and percussion. Breath sounds decreased. HEART: Rate and Rhythm are regular. First and second heart sounds normal. No murmurs, rubs or gallops. ABDOMEN: Abdominal exam reveals normal bowel sounds. Non-tender and non- distended. No evidence of peritonitis. EXTREMITITES: Trace edema. Objective - Vital Signs Vital signs: Vital Signs Temp 100.3 F H 08/13/18 08:00 Pulse 95 08/13/18 10:00 Resp 12 08/13/18 10:00 BP 71/38 08/13/18 10:00 Pulse Ox 94 L 08/13/18 10:00 Intake & Output 08/12/18 08/13/18 08/13/18 18:59 06:59 18:59 Intake Total 3203.762 7251.188 507.333 Output Total 630 926 393 Balance 5112.739 5013.188 114.333 Weight 110 kg Intake: IV 782.7 660 224 DOBUTamine DRIP 500 mg In 65.0 Dextrose/Water 1 250ml. bag @ 2.5 MCG/KG/MIN 8.26 mls/hr IV .Q24H [facility] Rx#: [id number] DOPamine DRIP 800 mg In 92.7 0 Dextrose/Water 1 500ml. bag @ 0 mls/hr IV .STK- [facility] Rx#:[id number] Piperacillin-Tazobactam 3 200 25 50 .375 gm In Sodium Chloride 0.9% 100 ml @ 25 mls/hr IVPB Q8HR [facility] Rx# :[id number] Sodium Chloride 0.9% 1, 425 575 150 000 ml @ 50 mls/hr IV . Q20H [facility] Rx#:[id number] pressure bags 60 24 Intake, IV Titration 794.405 568.188 43.333 Amount DOBUTamine DRIP 500 mg In 219.716 Dextrose/Water 1 250ml. bag @ 2.5 MCG/KG/MIN 8.26 mls/hr IV .Q24H [facility] Rx#: [id number] Heparin Sod,Pork in 0.45% 398 264.333 43.333 NaCl 25,000 unit In 0.45 % NaCl 1 500ml.bag @ 9. 073 UNITS/KG/HR 20 mls/hr IV .Q24H [facility] Rx#: [id number] Norepinephrine 16 mg In 176.689 103.855 Sodium Chloride 0.9% 250 ml @ Titrate IV .Q0M [facility] Rx#:[id number] Piperacillin-Tazobactam 3 200 .375 gm In Sodium Chloride 0.9% 100 ml @ 25 mls/hr IVPB Q8HR [facility] Rx# :[id number] Oral 360 720 240 Output: Urine 630 745 390 Stool 181 3 Other: Voiding Method Indwelling Catheter Indwelling Catheter Indwelling Catheter # Voids 1 1 # Bowel Movements 1 100 ABP, PAP, CO, CI - Last Documented Arterial Blood Pressure 81/37 - Labs CBC & Chem 7: 08/13/18 04:00 08/13/18 04:00 Labs: Abnormal Lab Results - Last 24 Hours (Table) 08/12/18 08/12/18 08/12/18 Range/Units 10:42 12:11 17:08 WBC (3.8-10.6) k/uL RBC (4.30-5.90) m/uL Hgb (13.0-17.5) gm/dL Hct (39.0-53.0) % RDW (11.5-15.5) % PT (9.0-12.0) sec INR (<1.2) APTT (22.0-30.0) sec ABG pH 7.31 L (7.35-7.45) ABG HCO3 18 L (21-25) mmol/L Sodium (137-145) mmol/L Carbon Dioxide (22-30) mmol/L BUN (9-20) mg/dL Creatinine (0.66-1.25) mg/dL Glucose (74-99) mg/dL POC Glucose (mg/dL) 274 H 245 H (75-99) mg/dL Calcium (8.4-10.2) mg/dL AST (17-59) U/L Total Protein (6.3-8.2) g/dL Albumin (3.5-5.0) g/dL 08/12/18 08/13/18 08/13/18 Range/Units 20:32 04:00 04:00 WBC 31.9 H (3.8-10.6) k/uL RBC 2.69 L (4.30-5.90) m/uL Hgb 7.6 L (13.0-17.5) gm/dL Hct 23.8 L (39.0-53.0) % RDW 20.0 H (11.5-15.5) % PT 12.9 H (9.0-12.0) sec INR 1.4 H (<1.2) APTT 67.1 H (22.0-30.0) sec ABG pH (7.35-7.45) ABG HCO3 (21-25) mmol/L Sodium (137-145) mmol/L Carbon Dioxide (22-30) mmol/L BUN (9-20) mg/dL Creatinine (0.66-1.25) mg/dL Glucose (74-99) mg/dL POC Glucose (mg/dL) 230 H (75-99) mg/dL Calcium (8.4-10.2) mg/dL AST (17-59) U/L Total Protein (6.3-8.2) g/dL Albumin (3.5-5.0) g/dL 08/13/18 08/13/18 Range/Units 04:00 06:54 WBC (3.8-10.6) k/uL RBC (4.30-5.90) m/uL Hgb (13.0-17.5) gm/dL Hct (39.0-53.0) % RDW (11.5-15.5) % PT (9.0-12.0) sec INR (<1.2) APTT (22.0-30.0) sec ABG pH (7.35-7.45) ABG HCO3 (21-25) mmol/L Sodium 134 L (137-145) mmol/L Carbon Dioxide 18 L (22-30) mmol/L BUN 43 H (9-20) mg/dL Creatinine 2.60 H (0.66-1.25) mg/dL Glucose 154 H (74-99) mg/dL POC Glucose (mg/dL) 195 H (75-99) mg/dL Calcium 7.1 L (8.4-10.2) mg/dL AST 61 H (17-59) U/L Total Protein 5.3 L (6.3-8.2) g/dL Albumin 2.7 L (3.5-5.0) g/dL Microbiology - Last 24 Hours (Table) 08/12/18 05:00 Urine Culture - Final Urine,Catheterized 08/12/18 05:00 Blood Culture - Preliminary Blood No Growth after 24 hours 08/12/18 04:50 Blood Culture - Preliminary Blood No Growth after 24 hours 08/12/18 06:25 Gram Stain - Preliminary Sputum Assessment and Plan Plan: Assessment: 1. Nonoliguric acute kidney injury secondary to ATN secondary to hypotension as well as contrast-induced nephropathy. Creatinine 2.6 today. 2. Chronic kidney disease stage III with baseline creatinine in the range of 1.1-1.3 secondary to nephrosclerosis. 3. NSTEMI status post cardiac catheterization and a stent placement to the proximal circumflex artery on August 11. Currently has intra-aortic balloon pump in place. 4. Metabolic acidosis secondary to acute kidney injury maintain on a low- sodium bicarbonate. 5. Hypotension related to underlying cardiac status. Maintained on dobutamine and Levophed. 6. Anemia. Rule out iron deficiency. No active bleeding noted. Plan: Maintain Lasix 80 mg IV twice daily for now. Intra-aortic balloon pump to be discontinued today. Encourage oral intake. Avoid nephrotoxins. Check iron studies. 20 mEq of potassium and 1 g of IV magnesium today.
--- NOTE | 2018-08-13 10:57 | XR ---
EXAMINATION TYPE: XR chest 1V portable DATE OF EXAM: 08/13/2018 COMPARISON: 08/12/2018 HISTORY: Shortness of breath TECHNIQUE: Single frontal view of the chest is obtained. FINDINGS: Right-sided central line seen with the tip overlying the SVC. There is an aortic balloon p ump marker overlying the aortic knob. Cardiac device seen with diffuse interstitial pattern and bilat eral consolidation and pleural effusion. Arthropathy of the shoulders. No pneumothorax. IMPRESSION: 1. Bilateral consolidation and pleural effusion is stable. CHF favored over pneumonia correlate clini lemuel.
--- NOTE | 2018-08-13 11:19 | PN ---
PROGRESS NOTE This patient's hemodynamics, vital signs, lab tests are reviewed. Patient is status post stent to the circumflex coronary artery with cardiogenic shock and elevated white count. Patient is lying comfortably in the bed. Patient remains afebrile. Patient currently is on intra-aortic balloon pump with a 1-2. His blood pressure is in the range of 90/60. Oxygen saturation is 94%. First and second heart sounds are normal. Lungs reveal bilateral scattered wheezes. Chest x-ray shows mild congestive cardiac failure. Patient's creatinine is 2.6. Urine output of 60 mL/hour. PLAN: We will wean him off the intra-aortic balloon pump and remove it today. Continue the support with the Levophed and dobutamine and IV Lasix. Patient is also getting IV antibiotics. Patient's prognosis remains poor. MMODL / IJN: [id number] /
[2018-08-13 12:12] LABS: Glucose,Whole Blood 179 mg/dL (75-99)
[2018-08-13] MEDS: DEXTROSE/WATER 1 500ML.BAG with DOPamine DRIP 800 MG IV SCH (16:20)
[2018-08-13 16:57] LABS: Iron Saturation 15.25 (15.00-50.00)
[2018-08-13 18:45] LABS: Glucose,Whole Blood 272 mg/dL (75-99)
[2018-08-13 20:55] LABS: Glucose,Whole Blood 253 mg/dL (75-99)
[2018-08-13] MEDS: DOBUTamine DRIP 500 MG in DEXTROSE/WATER 1 250ML.BAG IV SCH (21:16)
[2018-08-13] MEDS: ALPRAZolam 0.5 MG TAB PO PRN (21:26)
--- NOTE | 2018-08-14 01:24 | PN ---
PROGRESS NOTE DATE OF SERVICE: 08/13/2018. PRESENTING COMPLAINT: Tired. INTERVAL HISTORY: Patient presented with acute non-ST elevation myocardial infarction with coronary intervention. Has been in cardiogenic shock with intra-aortic balloon pump. That was actually taken off earlier today. The patient also was in acute renal failure. The patient's drips include dobutamine 2.5 mcg and norepinephrine. Patient tolerating some diet. Lying in bed. REVIEW OF SYSTEMS: Done for constitutional, cardiovascular, GI, pulmonary; relevant findings as above. CURRENT MEDICATIONS: Reviewed, that include dobutamine drip, IV heparin drip, antibiotics in form of IV Zosyn, sodium bicarb. PHYSICAL EXAMINATION: Temperature 99.4, pulse 92, respirations 19, blood pressure 104/48, pulse ox 97% on 3 L. GENERAL APPEARANCE: Lying in bed, tired-appearing awake. EYES: Pupils equal. Conjunctivae pale. HEENT: External appearance of nose and ears normal. Oral cavity normal. NECK: JVD unable to assess. Mass not palpable. LUNGS: Decreased breath sounds. CARDIOVASCULAR: Heart sounds irregular. Some edema. ABDOMEN: Soft, nontender. Liver and spleen not palpable. PSYCHIATRY: Alert and oriented x3. Mood and affect normal. INVESTIGATIONS: White count 31.9, hemoglobin 10.6, potassium 3.9, BUN 43, creatinine 2.0. ASSESSMENT: 1. Acute non ST elevation myocardial infarction with stent to the circumflex. 2. Coronary artery disease, prior stent in April of 2018. 3. AICD. 4. ITP. 5. Colonic diverticulosis, asymptomatic. 6. Primary osteoarthritis of the lower back. 7. Obesity; BMI 33. 8. Acute kidney injury, nonoliguric, likely ATN combination of hypotension HPI p.o. and contrast induced nephropathy, worsening. 9. Acute metabolic acidosis from renal failure. 10.Hyperkalemia due to renal failure, better. 11.Normocytic anemia cause an unknown. 12.Acute congestive heart failure from coronary artery disease, EF 35% to 40%. 13.Cardiogenic shock. The patient had been on intra-aortic balloon pump that is being removed today. PLAN: Prognosis remains guarded. Follow closely. Continue current medication and treatment plan. Drips including dobutamine, norepinephrine. Care was discussed with the patient's son at the bedside. MMODL / IJN: [id number] /
[2018-08-14 04:46] LABS: Anisocytosis Slight; HCT 23.1 % (39.0-53.0); HGB 7.4 gm/dL (13.0-17.5); Hypochromasia Slight; MCH 28.4 pg (25.0-35.0); MCV 88.6 fL (80.0-100.0); Mean Platelet Volume 11.5; Platelet Count 232 k/uL (150-450); Poikilocytosis Slight; RBC 2.61 m/uL (4.30-5.90); RDW 19.9 % (11.5-15.5); WBC 23.3 k/uL (3.8-10.6)
[2018-08-14 05:12] LABS: Calcium 7.2 mg/dL (8.4-10.2); Magnesium 1.4 mg/dL (1.6-2.3); Potassium 3.8 mmol/L (3.5-5.1)
[2018-08-14 06:23] LABS: Band Neutrophils % 1 %; Eosinophils # (M) 0.23 k/uL (0-0.7); Lymphocytes # (M) 0.23 k/uL (1.0-4.8); Monocytes # (M) 8.39 k/uL (0-1.0); Neutrophils % (M) 61 %; Nucleated Red Blood Cells 0 /100 WBC (0-0); Total Cells Counted 100
[2018-08-14 06:24] LABS: Anisocytosis (M) Present; Ovalocytes Present; Polychromasia Present
--- NOTE | 2018-08-14 06:30 | XR ---
EXAMINATION TYPE: XR chest 1V DATE OF EXAM: 08/14/2018 HISTORY: chf. REFERENCE: Previous study dated 08/13/2018. FINDINGS: There is a bipolar pacemaker in place on the left. There is a right internal jugular cathet er in place. Its tip is in the right atrium. There continue to be small, bilateral effusions. Heart size upper limits of normal. There is improved aeration of both lung bases. IMPRESSION: IMPROVED AERATION, BOTH LUNG BASES.
[2018-08-14] MEDS: MAGNESIUM SULFATE-D5W PMX 1 GM in DEXTROSE/WATER 1 100ML.BAG IVPB SCH ×2 (06:39→10:09)
[2018-08-14] MEDS: INSULIN ASPART 100 UNIT/ML 1 ML 10 ML VIAL SQ SCH ×5 (07:18→21:09)
[2018-08-14 07:27] LABS: Glucose,Whole Blood 180 mg/dL (75-99)
[2018-08-14] MEDS ORDERED: POTASSIUM CHLORIDE ER 20 MEQ TAB.ER PO ONE (08:00)
[2018-08-14] MEDS: IPRATROPIUM-ALBUTEROL 3 ML NEB INHALATION SCH ×2 (08:11→19:51)
--- NOTE | 2018-08-14 08:58 | P.PN ---
Subjective Patient is seen in follow-up for acute kidney injury on chronic kidney disease. Patient has chronic kidney disease stage III with baseline creatinine in the range of 1.1-1.3 secondary to nephrosclerosis. Creatinine peaked at 2.6 and is down to 2.03 today. Patient had a cardiac catheterization on August 11 and had a stent placed to the proximal circumflex. He had an intra-aortic balloon pump placed which was removed on August 13. He's off Levophed. He is still on dobutamine which is being titrated down. He is maintained on Lasix 80 mg IV twice daily and is diuresing well. Denies any active chest pain but does admit to dyspnea. Vital signs are stable. General: The patient appeared well nourished and normally developed. HEENT: Head exam is unremarkable. Neck is without jugular venous distension. LUNGS: Lungs are clear to auscultation and percussion. Breath sounds decreased. HEART: Rate and Rhythm are regular. First and second heart sounds normal. No murmurs, rubs or gallops. ABDOMEN: Abdominal exam reveals normal bowel sounds. Non-tender and non- distended. No evidence of peritonitis. EXTREMITITES: Trace edema. Objective - Vital Signs Vital signs: Vital Signs Temp 98.4 F 08/14/18 04:00 Pulse 82 08/14/18 08:24 Resp 28 H 08/14/18 07:00 BP 115/82 08/14/18 07:00 Pulse Ox 96 08/14/18 07:00 Intake & Output 08/13/18 08/14/18 08/14/18 18:59 06:59 18:59 Intake Total 8376.240 4617.052 56 Output Total 1983 1590 150 Balance -783.667 -531.948 -94 Weight 111.2 kg Intake: IV 672 616 56 Piperacillin-Tazobactam 3 125 .375 gm In Sodium Chloride 0.9% 100 ml @ 25 mls/hr IVPB Q8HR [facility] Rx# :[id number] Sodium Chloride 0.9% 1, 475 550 50 000 ml @ 50 mls/hr IV . Q20H [facility] Rx#:[id number] pressure bags 72 66 6 Intake, IV Titration 43.333 442.052 Amount DOBUTamine DRIP 500 mg In 228.527 Dextrose/Water 1 250ml. bag @ 2.5 MCG/KG/MIN 8.26 mls/hr IV .Q24H [facility] Rx#: [id number] Heparin Sod,Pork in 0.45% 43.333 NaCl 25,000 unit In 0.45 % NaCl 1 500ml.bag @ 9. 073 UNITS/KG/HR 20 mls/hr IV .Q24H [facility] Rx#: [id number] Norepinephrine 16 mg In 213.525 Sodium Chloride 0.9% 250 ml @ Titrate IV .Q0M [facility] Rx#:[id number] Oral 485 Output: Urine 1975 1590 150 Stool 9 Other: Voiding Method Indwelling Catheter Indwelling Catheter # Voids 1 # Bowel Movements 100 ABP, PAP, CO, CI - Last Documented Arterial Blood Pressure 103/45 - Labs CBC & Chem 7: 08/14/18 04:30 08/14/18 04:30 Labs: Abnormal Lab Results - Last 24 Hours (Table) 08/13/18 08/13/18 08/13/18 Range/Units 04:00 04:00 12:02 WBC (3.8-10.6) k/uL RBC (4.30-5.90) m/uL Hgb (13.0-17.5) gm/dL Hct (39.0-53.0) % RDW (11.5-15.5) % Neutrophils # (Manual) (1.3-7.7) k/uL Lymphocytes # (Manual) (1.0-4.8) k/uL Monocytes # (Manual) (0-1.0) k/uL Sodium 134 L (137-145) mmol/L Carbon Dioxide 18 L (22-30) mmol/L BUN 43 H (9-20) mg/dL Creatinine 2.60 H (0.66-1.25) mg/dL Glucose 154 H (74-99) mg/dL POC Glucose (mg/dL) 179 H (75-99) mg/dL Calcium 7.1 L (8.4-10.2) mg/dL Magnesium (1.6-2.3) mg/dL Iron 36 L (65-175) ug/dL Ferritin 821.5 H (22.0-322.0) ng/mL AST 61 H (17-59) U/L Total Protein 5.3 L (6.3-8.2) g/dL Albumin 2.7 L (3.5-5.0) g/dL 08/13/18 08/13/18 08/14/18 Range/Units 18:34 20:44 04:30 WBC 23.3 H (3.8-10.6) k/uL RBC 2.61 L (4.30-5.90) m/uL Hgb 7.4 L (13.0-17.5) gm/dL Hct 23.1 L (39.0-53.0) % RDW 19.9 H (11.5-15.5) % Neutrophils # (Manual) 14.40 H (1.3-7.7) k/uL Lymphocytes # (Manual) 0.23 L (1.0-4.8) k/uL Monocytes # (Manual) 8.39 H (0-1.0) k/uL Sodium (137-145) mmol/L Carbon Dioxide (22-30) mmol/L BUN (9-20) mg/dL Creatinine (0.66-1.25) mg/dL Glucose (74-99) mg/dL POC Glucose (mg/dL) 272 H 253 H (75-99) mg/dL Calcium (8.4-10.2) mg/dL Magnesium (1.6-2.3) mg/dL Iron (65-175) ug/dL Ferritin (22.0-322.0) ng/mL AST (17-59) U/L Total Protein (6.3-8.2) g/dL Albumin (3.5-5.0) g/dL 08/14/18 08/14/18 Range/Units 04:30 07:15 WBC (3.8-10.6) k/uL RBC (4.30-5.90) m/uL Hgb (13.0-17.5) gm/dL Hct (39.0-53.0) % RDW (11.5-15.5) % Neutrophils # (Manual) (1.3-7.7) k/uL Lymphocytes # (Manual) (1.0-4.8) k/uL Monocytes # (Manual) (0-1.0) k/uL Sodium 134 L (137-145) mmol/L Carbon Dioxide 19 L (22-30) mmol/L BUN 36 H (9-20) mg/dL Creatinine 2.03 H (0.66-1.25) mg/dL Glucose 163 H (74-99) mg/dL POC Glucose (mg/dL) 180 H (75-99) mg/dL Calcium 7.2 L (8.4-10.2) mg/dL Magnesium 1.4 L (1.6-2.3) mg/dL Iron (65-175) ug/dL Ferritin (22.0-322.0) ng/mL AST (17-59) U/L Total Protein (6.3-8.2) g/dL Albumin (3.5-5.0) g/dL Microbiology - Last 24 Hours (Table) 08/12/18 05:00 Blood Culture - Preliminary Blood No Growth after 48 hours 08/12/18 04:50 Blood Culture - Preliminary Blood No Growth after 48 hours 08/12/18 05:00 Urine Culture - Final Urine,Catheterized Assessment and Plan Plan: Assessment: 1. Nonoliguric acute kidney injury secondary to ATN secondary to hypotension as well as contrast-induced nephropathy. Creatinine peaked at 2.6 and is down to 2.03 today. 2. Chronic kidney disease stage III with baseline creatinine in the range of 1.1-1.3 secondary to nephrosclerosis. 3. NSTEMI status post cardiac catheterization and a stent placement to the proximal circumflex artery on August 11. Currently has intra-aortic balloon pump in place. 4. Metabolic acidosis secondary to acute kidney injury maintain on a low- sodium bicarbonate. 5. Hypotension related to underlying cardiac status. Better. Off Levophed. 6. Anemia. Iron deficiency noted. No active bleeding noted. 7. Hypomagnesemia secondary to diuresis. Plan: Decrease Lasix to 40 mg IV twice daily. Encourage oral intake. Avoid nephrotoxins. 40 mEq of potassium and 2 g of IV magnesium today. 125 mg IV Ferrlecit daily for 3 days. First dose today.
[2018-08-14] MEDS ORDERED: FUROSEMIDE 40 MG TAB PO SCH (09:00)
[2018-08-14] MEDS: PANTOPRAZOLE 40 MG/10 ML VIAL IV SCH (10:10)
[2018-08-14] MEDS: SODIUM FERRIC GLUCONAT-SUCROSE 125 MG in SODIUM CHLORIDE 0.9% 100 ML IVPB SCH (10:10)
[2018-08-14] MEDS: SODIUM BICARBONATE TAB 650 MG TAB PO SCH ×2 (10:10→21:09)
[2018-08-14] MEDS: FUROSEMIDE 10 MG/ML 4 ML VIAL IV SCH ×2 (10:10→21:08)
[2018-08-14] MEDS: ASPIRIN 81 MG PO SCH (10:11)
[2018-08-14] MEDS: ATORVASTATIN 40 MG TAB PO SCH (10:11)
[2018-08-14] MEDS: CLOPIDOGREL 75 MG TAB PO SCH (10:11)
[2018-08-14] MEDS: PIPERACILLIN-TAZOBACTAM 3.375 GM in SODIUM CHLORIDE 0.9% 100 ML IVPB SCH ×3 (10:12→23:11)
[2018-08-14] MEDS: ELTROMBOPAG PO SCH (10:13)
[2018-08-14 12:02] LABS: Glucose,Whole Blood 239 mg/dL (75-99)
--- NOTE | 2018-08-14 13:40 | P.PN ---
Subjective Progress Note Date: 08/14/18 This is a 73-year-old gentleman with history of ischemic heart disease with previous stent placement of LAD and also AICD implantation who was admitted to the hospital with shortness of breath and evidence of non-ST elevation [place]. Patient had a cardiac catheterization and was found to have significant disease involving the circumflex. Patient had stent placement and also intractable balloon pump. Balloon pump was removed yesterday. Patient is still complaining of shortness of breath but overall feeling better. His creatinine is improved. His blood pressure is more stable. He is off Levophed and dobutamine is being weaned off. We are going to start him on small dose of Coreg. He still on IV Lasix which will be discontinued. Patient is diuresing well. Objective - Vital Signs Vital signs: Vital Signs Temp 98.4 F 08/14/18 04:00 Pulse 82 08/14/18 08:24 Resp 28 H 08/14/18 07:00 BP 115/82 08/14/18 07:00 Pulse Ox 96 08/14/18 07:00 Intake & Output 08/13/18 08/14/18 08/14/18 18:59 06:59 18:59 Intake Total 9910.934 3375.052 56 Output Total 1984 1590 150 Balance -783.667 -531.948 -94 Weight 111.2 kg Intake: IV 672 616 56 Piperacillin-Tazobactam 3 125 .375 gm In Sodium Chloride 0.9% 100 ml @ 25 mls/hr IVPB Q8HR [facility] Rx# :[id number] Sodium Chloride 0.9% 1, 475 550 50 000 ml @ 50 mls/hr IV . Q20H [facility] Rx#:[id number] pressure bags 72 66 6 Intake, IV Titration 43.333 442.052 Amount DOBUTamine DRIP 500 mg In 228.527 Dextrose/Water 1 250ml. bag @ 2.5 MCG/KG/MIN 8.26 mls/hr IV .Q24H [facility] Rx#: [id number] Heparin Sod,Pork in 0.45% 43.333 NaCl 25,000 unit In 0.45 % NaCl 1 500ml.bag @ 9. 073 UNITS/KG/HR 20 mls/hr IV .Q24H [facility] Rx#: [id number] Norepinephrine 16 mg In 213.525 Sodium Chloride 0.9% 250 ml @ Titrate IV .Q0M [facility] Rx#:[id number] Oral 485 Output: Urine 1975 1590 150 Stool 9 Other: Voiding Method Indwelling Catheter Indwelling Catheter # Voids 1 # Bowel Movements 100 ABP, PAP, CO, CI - Last Documented Arterial Blood Pressure 103/45 - Exam GENERAL EXAM: Patient is alert and oriented and doesn't appear to be in any acute distress HEENT: Normocephalic. Normal reaction of pupils, equal size, normal range of extraocular motion. No erythema or exudates in the throat. NECK: No masses, no nuchal rigidity. CHEST: No chest wall deformity. LUNGS: Diminished breath sounds HEART: S1 and S2 normal with no audible mumurs or gallops. Regular rhythm, femorals equal on both sides.. ABDOMEN: No hepatosplenomegaly, normal bowel sounds, no guarding or rigidity. SKIN: No rashes CENTRAL NERVOUS SYSTEM: No focal deficits. EXTREMITIES: No cyanosis, clubbing or edema. - Labs CBC & Chem 7: 08/14/18 04:30 08/14/18 04:30 Labs: Abnormal Lab Results - Last 24 Hours (Table) 08/13/18 08/13/18 08/13/18 Range/Units 04:00 18:34 20:44 WBC (3.8-10.6) k/uL RBC (4.30-5.90) m/uL Hgb (13.0-17.5) gm/dL Hct (39.0-53.0) % RDW (11.5-15.5) % Neutrophils # (Manual) (1.3-7.7) k/uL Lymphocytes # (Manual) (1.0-4.8) k/uL Monocytes # (Manual) (0-1.0) k/uL Sodium (137-145) mmol/L Carbon Dioxide (22-30) mmol/L BUN (9-20) mg/dL Creatinine (0.66-1.25) mg/dL Glucose (74-99) mg/dL POC Glucose (mg/dL) 272 H 253 H (75-99) mg/dL Calcium (8.4-10.2) mg/dL Magnesium (1.6-2.3) mg/dL Iron 36 L (65-175) ug/dL Ferritin 821.5 H (22.0-322.0) ng/mL 08/14/18 08/14/18 08/14/18 Range/Units 04:30 04:30 07:15 WBC 23.3 H (3.8-10.6) k/uL RBC 2.61 L (4.30-5.90) m/uL Hgb 7.4 L (13.0-17.5) gm/dL Hct 23.1 L (39.0-53.0) % RDW 19.9 H (11.5-15.5) % Neutrophils # (Manual) 14.40 H (1.3-7.7) k/uL Lymphocytes # (Manual) 0.23 L (1.0-4.8) k/uL Monocytes # (Manual) 8.39 H (0-1.0) k/uL Sodium 134 L (137-145) mmol/L Carbon Dioxide 19 L (22-30) mmol/L BUN 36 H (9-20) mg/dL Creatinine 2.03 H (0.66-1.25) mg/dL Glucose 163 H (74-99) mg/dL POC Glucose (mg/dL) 180 H (75-99) mg/dL Calcium 7.2 L (8.4-10.2) mg/dL Magnesium 1.4 L (1.6-2.3) mg/dL Iron (65-175) ug/dL Ferritin (22.0-322.0) ng/mL 08/14/18 Range/Units 11:51 WBC (3.8-10.6) k/uL RBC (4.30-5.90) m/uL Hgb (13.0-17.5) gm/dL Hct (39.0-53.0) % RDW (11.5-15.5) % Neutrophils # (Manual) (1.3-7.7) k/uL Lymphocytes # (Manual) (1.0-4.8) k/uL Monocytes # (Manual) (0-1.0) k/uL Sodium (137-145) mmol/L Carbon Dioxide (22-30) mmol/L BUN (9-20) mg/dL Creatinine (0.66-1.25) mg/dL Glucose (74-99) mg/dL POC Glucose (mg/dL) 239 H (75-99) mg/dL Calcium (8.4-10.2) mg/dL Magnesium (1.6-2.3) mg/dL Iron (65-175) ug/dL Ferritin (22.0-322.0) ng/mL Microbiology - Last 24 Hours (Table) 08/12/18 06:25 Gram Stain - Final Sputum Sputum Culture - Final 08/12/18 05:00 Blood Culture - Preliminary Blood No Growth after 48 hours 08/12/18 04:50 Blood Culture - Preliminary Blood No Growth after 48 hours 08/12/18 05:00 Urine Culture - Final Urine,Catheterized Assessment and Plan (1) Acute non-ST segment elevation myocardial infarction (STEMI) following previous myocardial infarction Current Visit: Yes Status: Acute Code(s): I22.9 - SUBSEQUENT STEMI OF [facility] SITE (2) ARF (acute renal failure) Current Visit: No Status: Acute Code(s): N17.9 - ACUTE KIDNEY FAILURE, UNSPECIFIED SNOMED Code(s): 23982873 (3) Anemia Current Visit: No Status: Acute Code(s): D64.9 - ANEMIA, UNSPECIFIED SNOMED Code(s): 103821819 (4) Diabetes mellitus Current Visit: No Status: Acute Code(s): E11.9 - TYPE 2 DIABETES MELLITUS WITHOUT COMPLICATIONS SNOMED Code(s): 73547783 (5) Gastroenteritis Current Visit: No Status: Acute Code(s): K52.9 - NONINFECTIVE GASTROENTERITIS AND COLITIS, UNSPECIFIED SNOMED Code(s): 01950075 (6) Cardiomyopathy Current Visit: Yes Status: Acute Code(s): I42.9 - CARDIOMYOPATHY, UNSPECIFIED SNOMED Code(s): 76187372 (7) Congestive heart failure Current Visit: Yes Status: Acute Code(s): I50.9 - HEART FAILURE, UNSPECIFIED SNOMED Code(s): 06972027 Plan: This patient has shown some improvement. His creatinine level has improved. Blood pressure is more stable. We'll put him on by mouth Lasix and discontinued dobutamine. We'll start him on small dose of Coreg. Increase activity as tolerated
[2018-08-14 16:55] LABS: Glucose,Whole Blood 205 mg/dL (75-99)
--- NOTE | 2018-08-14 17:24 | P.PN ---
Subjective Progress Note Date: 08/14/18 On 08/12/2018 the patient is being seen for a follow-up. The patient is known to have coronary artery disease and he is post acute non-ST segment elevation myocardial infarction. He has severe ischemic artery myopathy and is post AICD placement. The patient was taken to [facility] yesterday and underwent stenting of the circumflex, and intra-aortic balloon pump was inserted and following that the patient was transferred to the intensive care unit. Initially the patient was on a intra-aortic balloon pump with a one-to-one ratio augmentation. The patient was also on a combination of pressors including dopamine 2.5 g per KG per minute, norepinephrine infusion running at 12 g per KG per minute and dobutamine. A triple lumen catheter inserted in the CVP was above 12 consistently. The patient was started on diuretics and the patient produced adequate amount of urine output over the past when he 4 hours and currently the patient negative fluid balance. His morning the patient is on 6 L of oxygen by nasal cannula. Intra-aortic balloon pump is still maintained. The augmented blood pressure was 70. The patient is still on the same pressor doses. He was having some increased cough and congestion and some sputum production without any fever. White cell count was noted to be high this morning and based on that the patient was started on empiric antibiotic coverage with IV Zosyn . It was noted the patient's hemoglobin dropped down to 7.7. The patient was having blood wasn't from the puncture sites including the intra-aortic balloon puncture site and the right IJ triple-lumen catheter puncture site. The bleeding was controlled. IV heparin was resumed. It's likely that hemoglobin drop was secondary to the blood loss from the skin surface. On today's evaluation, he is alert and awake. He denies having any chest pain. No significant shortness of breath. Chest x-ray from this morning shows bilateral consolidation pleural effusions consistent with CHF. The net fluid balance over the past 24 hours is +946 mL and the patient remains in a positive fluid balance of 1.1 L for today. Otherwise, no other significant events. Adequate pulses in all 4 extremities. The patient is seen today 08/13/2018 in follow-up in the intensive care unit. He is currently awake and alert in no acute distress. He denies any chest pain , palpitations lightheadedness or dizziness. He remains in atrial fibrillation with occasional ventricular pacing. He remains on norepinephrine at 12 mcg/m. His was a size 22 mcg/m last evening. He is on dobutamine at 2.5 mcg/kg/m. Dopamine has been discontinued. He remains with the intra-aortic balloon pump maintaining augmented pressures of 65. He is on a 1:3 ratio this morning. He denies any worsening shortness of breath, cough or congestion. He is maintaining O2 saturations in the mid 90s on 3 L/m per nasal cannula. Maintaining mean arterial pressures in the 60s. CVP 19. White count 31.9. Hemoglobin 7.6. INR 1.4. Basic metabolic panel pending. Creatinine He is having issues with diarrhea. C. difficile toxin screen was negative 2. Blood culture reveals no growth. Urine and sputum cultures are pending. Current temp 100.4 axillary. He remains on Zosyn. On 08/14/2018, the patient is sitting up on a chair. The intra-aortic balloon pump was removed yesterday. Subsequently the patient was gradually weaned off the levo fed and was discontinued yesterday and earlier this morning the dobutamine was also discontinued. The patient is producing good urine output. Renal function is improving. The patient is on Lasix. Fluid balance is -1.3 L 4 today. The patient's family chest pain. The triple-lumen catheter site is clean and dry and intact. The intra-aortic balloon puncture site is also clean. Hemoglobin is stable at 7.4. The patient continues to have a congested cough. The white cell count is dropped down to 23.3 and the patient is currently on empiric antibiotic coverage with IV Zosyn. He is still having some liquidy stool in the stool for C. diff on 2 separate occasions have been negative. Chest x-ray still showing a component of pulmonary vessel congestion/ CHF and the patient is on IV Lasix 40 mg every 12 hours. Note that, the patient is also on a combination of aspirin and Plavix. The patient remains on IV heparin. Oral bicarb was also added regarding the non-anion gap metabolic acidosis. The patient's urine bicarb is at 19. Creatinine is improved is down to 2.0. No chest pain. No altered mentation. No other complaints otherwise for now. Objective - Vital Signs Vital signs: Vital Signs Temp 98.4 F 08/14/18 04:00 Pulse 82 11/17/18 08:24 Resp 28 H 08/14/18 07:00 BP 115/82 08/14/18 07:00 Pulse Ox 96 08/14/18 07:00 Intake & Output 08/13/18 08/14/18 08/14/18 18:59 06:59 18:59 Intake Total 5336.945 3817.052 56 Output Total 1984 1590 150 Balance -783.667 -531.948 -94 Weight 111.2 kg Intake: IV 672 616 56 Piperacillin-Tazobactam 3 125 .375 gm In Sodium Chloride 0.9% 100 ml @ 25 mls/hr IVPB Q8HR [facility] Rx# :[id number] Sodium Chloride 0.9% 1, 475 550 50 000 ml @ 50 mls/hr IV . Q20H [facility] Rx#:[id number] pressure bags 72 66 6 Intake, IV Titration 43.333 442.052 Amount DOBUTamine DRIP 500 mg In 228.527 Dextrose/Water 1 250ml. bag @ 2.5 MCG/KG/MIN 8.26 mls/hr IV .Q24H [facility] Rx#: [id number] Heparin Sod,Pork in 0.45% 43.333 NaCl 25,000 unit In 0.45 % NaCl 1 500ml.bag @ 9. 073 UNITS/KG/HR 20 mls/hr IV .Q24H [facility] Rx#: [id number] Norepinephrine 16 mg In 213.525 Sodium Chloride 0.9% 250 ml @ Titrate IV .Q0M [facility] Rx#:[id number] Oral 485 Output: Urine 1975 1590 150 Stool 9 Other: Voiding Method Indwelling Catheter Indwelling Catheter # Voids 1 # Bowel Movements 100 ABP, PAP, CO, CI - Last Documented Arterial Blood Pressure 103/45 - Exam GENERAL EXAM: Alert, pleasant, 73-year-old obese white male comfortable in no apparent distress. The patient is resting comfortably in bed on oxygen at 3 L per minute nasal cannula. HEAD: Normocephalic/atraumatic. EYES: Normal reaction of pupils, equal size. Conjunctiva pink, sclera white. NOSE: Clear with pink turbinates. THROAT: No erythema or exudates. NECK: No masses, no JVD, no thyroid enlargement, no adenopathy. The patient also has a triple lumen catheter in the right IJ. CHEST: No chest wall deformity. Symmetrical expansion. LUNGS: Breath sounds are diminished bilaterally along with some bibasilar crackles. CVS: Regular rate and rhythm, normal S1 and S2, no gallops, no murmurs, no rubs ABDOMEN: Soft, nontender. No hepatosplenomegaly, normal bowel sounds, no guarding or rigidity. EXTREMITIES: No clubbing, no edema, no cyanosis, diminished pulses and upper and lower extremities. The patient has an intra-aortic balloon pump in the right femoral artery and the exit site is clean without evidence of any acute bleeding. MUSCULOSKELETAL: Muscle strength and tone normal. SPINE: No scoliosis or deformity SKIN: No rashes CENTRAL NERVOUS SYSTEM: Alert and oriented -3. No focal deficits, tone is normal in all 4 extremities. PSYCHIATRIC: Alert and oriented -3. Appropriate affect. Intact judgment and insight. - Labs CBC & Chem 7: 08/14/18 04:30 08/14/18 04:30 Labs: Abnormal Lab Results - Last 24 Hours (Table) 08/13/18 08/13/18 08/14/18 Range/Units 18:34 20:44 04:30 WBC 23.3 H (3.8-10.6) k/uL RBC 2.61 L (4.30-5.90) m/uL Hgb 7.4 L (13.0-17.5) gm/dL Hct 23.1 L (39.0-53.0) % RDW 19.9 H (11.5-15.5) % Neutrophils # (Manual) 14.40 H (1.3-7.7) k/uL Lymphocytes # (Manual) 0.23 L (1.0-4.8) k/uL Monocytes # (Manual) 8.39 H (0-1.0) k/uL Sodium (137-145) mmol/L Carbon Dioxide (22-30) mmol/L BUN (9-20) mg/dL Creatinine (0.66-1.25) mg/dL Glucose (74-99) mg/dL POC Glucose (mg/dL) 272 H 253 H (75-99) mg/dL Calcium (8.4-10.2) mg/dL Magnesium (1.6-2.3) mg/dL 08/14/18 08/14/18 08/14/18 Range/Units 04:30 07:15 11:51 WBC (3.8-10.6) k/uL RBC (4.30-5.90) m/uL Hgb (13.0-17.5) gm/dL Hct (39.0-53.0) % RDW (11.5-15.5) % Neutrophils # (Manual) (1.3-7.7) k/uL Lymphocytes # (Manual) (1.0-4.8) k/uL Monocytes # (Manual) (0-1.0) k/uL Sodium 134 L (137-145) mmol/L Carbon Dioxide 19 L (22-30) mmol/L BUN 36 H (9-20) mg/dL Creatinine 2.03 H (0.66-1.25) mg/dL Glucose 163 H (74-99) mg/dL POC Glucose (mg/dL) 180 H 239 H (75-99) mg/dL Calcium 7.2 L (8.4-10.2) mg/dL Magnesium 1.4 L (1.6-2.3) mg/dL 08/14/18 Range/Units 16:43 WBC (3.8-10.6) k/uL RBC (4.30-5.90) m/uL Hgb (13.0-17.5) gm/dL Hct (39.0-53.0) % RDW (11.5-15.5) % Neutrophils # (Manual) (1.3-7.7) k/uL Lymphocytes # (Manual) (1.0-4.8) k/uL Monocytes # (Manual) (0-1.0) k/uL Sodium (137-145) mmol/L Carbon Dioxide (22-30) mmol/L BUN (9-20) mg/dL Creatinine (0.66-1.25) mg/dL Glucose (74-99) mg/dL POC Glucose (mg/dL) 205 H (75-99) mg/dL Calcium (8.4-10.2) mg/dL Magnesium (1.6-2.3) mg/dL Microbiology - Last 24 Hours (Table) 08/12/18 06:25 Gram Stain - Final Sputum Sputum Culture - Final 08/12/18 05:00 Blood Culture - Preliminary Blood No Growth after 48 hours 08/12/18 04:50 Blood Culture - Preliminary Blood No Growth after 48 hours Assessment and Plan Plan: Assessment 1 acute non-ST segment elevation myocardial infarction, status post emergent cardiac catheterization and stenting of the circumflex. 2 acute hypotension, likely cardiogenic shock, post insertion and removal of intra-aortic balloon pump. The patient was also on a combination of pressors which got weaned off and discontinued. Hemodynamically stable and improved urine output. 3 CHF with cardiomyopathy severe ischemic in nature and the patient has an AICD in place. Echocardiogram was done and the patient has an ejection fraction of 3035%. The LAD is severely dilated. No significant pulmonary hypertension. 4 acute hypoxic respiratory failure secondary to CHF/edema and the patient is currently on 3 L per minute nasal cannula 5 acute on chronic kidney injury. Urine output is improving and the creatinine is down to 2.0 and the patient continues to have a component of non-anion gap metabolic acidosis and the patient is currently on oral bicarb. 6 diabetes mellitus type 2 7 COPD 8 chronic smoker 9 history of ITP 10 anemia with interval drop in hemoglobin is stable for now 11 acute leukocytosis, rule out reactive leukocytosis secondary to stress, rule out underlying infection/pneumonia/UTI, white cell count is improving and the patient is afebrile for now on IV Zosyn. PLAN Hemodynamically stable. Continue Lasix. Optimize cardiac pulmonary status. Wean down FiO2 as tolerated and the patient is currently down to 3 L. Continued IV Zosyn for another 24 hours. Monitor white count. All of the cultures of been negative. The patient is off the intra-aortic balloon pumping the patient is off the pressors. The patient's family chest pain. Cardiology is on the case. We'll continue to follow. Raquel much pleased with his overall progress.
[2018-08-14] MEDS: DOBUTamine DRIP 500 MG in DEXTROSE/WATER 1 250ML.BAG IV SCH (19:23)
[2018-08-14] MEDS: HEPARIN SOD,PORK IN 0.45% NACL 25,000 UNIT in 0.45% NACL 1 500ML.BAG IV SCH (19:23)
[2018-08-14] MEDS: DEXTROSE/WATER 1 500ML.BAG with DOPamine DRIP 800 MG IV SCH (19:23)
[2018-08-14 21:17] LABS: Glucose,Whole Blood 184 mg/dL (75-99)
[2018-08-14] MEDS: SODIUM CHLORIDE 0.9% 1,000 ML IV SCH (22:01)
[2018-08-14] MEDS: ALPRAZolam 0.5 MG TAB PO PRN (23:11)
[2018-08-15 04:43] LABS: Calcium 7.2 mg/dL (8.4-10.2); Magnesium 1.3 mg/dL (1.6-2.3); Potassium 3.4 mmol/L (3.5-5.1)
[2018-08-15 05:06] LABS: Anisocytosis Slight; HCT 22.8 % (39.0-53.0); HGB 7.5 gm/dL (13.0-17.5); Hypochromasia Moderate; MCH 29.2 pg (25.0-35.0); MCHC 32.8 g/dL (31.0-37.0); MCV 88.8 fL (80.0-100.0); Platelet Count 209 k/uL (150-450); Poikilocytosis Slight; RBC 2.56 m/uL (4.30-5.90); RDW 19.6 % (11.5-15.5); WBC 14.6 k/uL (3.8-10.6)
--- NOTE | 2018-08-15 06:34 | XR ---
EXAMINATION TYPE: XR chest 1V DATE OF EXAM: 08/15/2018 HISTORY: chf. REFERENCE: Previous study dated 08/14/2018. FINDINGS: There is a bipolar pacemaker place on the left. A right internal jugular catheter remains i n place. Its tip is in the superior vena cava. The heart is mildly enlarged. There are small, bilateral effusions. There is bibasilar airspace disea se, worse on the left than the right. IMPRESSION: NO SIGNIFICANT INTERVAL CHANGE IN THE APPEARANCE OF THE CHEST.
[2018-08-15] MEDS: MAGNESIUM SULFATE-D5W PMX 1 GM in DEXTROSE/WATER 1 100ML.BAG IVPB SCH ×3 (06:55→10:54)
[2018-08-15] MEDS: INSULIN ASPART 100 UNIT/ML 1 ML 10 ML VIAL SQ SCH ×4 (06:58→20:25)
[2018-08-15 07:05] LABS: Band Neutrophils % 1 %; Large Platelets Present; Lymphocytes # (M) 1.17 k/uL (1.0-4.8); Monocytes # (M) 3.07 k/uL (0-1.0); Neutrophils % (M) 70 %; Nucleated Red Blood Cells 0 /100 WBC (0-0); Total Cells Counted 100
[2018-08-15 07:07] LABS: Ovalocytes Present
[2018-08-15 07:08] LABS: Glucose,Whole Blood 195 mg/dL (75-99)
[2018-08-15] MEDS: IPRATROPIUM-ALBUTEROL 3 ML NEB INHALATION SCH ×2 (07:22→20:04)
[2018-08-15] MEDS ORDERED: POTASSIUM CHLORIDE ER 20 MEQ TAB.ER PO ONE (08:00)
--- NOTE | 2018-08-15 08:08 | PN ---
PROGRESS NOTE DATE OF SERVICE: August 14, 2018. PRESENTING COMPLAINT: Tired. INTERVAL HISTORY: This patient presented with acute non ST elevation myocardial infarction with coronary intervention. Went into cardiogenic shock with intra-aortic balloon pump that has been now removed. The patient also had acute renal failure. Patient had been on dopamine and Levophed that have all been taken off. The patient has a Rehman catheter in place. Feels weak and tired, sitting up on a chair. REVIEW OF SYSTEMS: Done for constitutional, cardiovascular, GI, pulmonary; relevant findings as above. CURRENT MEDICATIONS: Reviewed that include DuoNeb. The patient did get IV iron today. Also on IV heparin, IV Zosyn. PHYSICAL EXAMINATION: VITAL SIGNS: Temperature 98.3, pulse 78, respirations 17, blood pressure 109/51, pulse ox 96% on nasal cannula. GENERAL APPEARANCE: Sitting up in a chair, awake. EYES: Pupils equal. Conjunctivae pale. HEENT: External appearance of nose and ears normal. Oral cavity normal. NECK: JVD unable to assess. Mass not palpable. RESPIRATORY: Effort increased. LUNGS: Decreased breath sounds. CARDIOVASCULAR: Heart sounds irregular. Some edema. ABDOMEN: Soft, nontender. Liver and spleen not palpable. PSYCHIATRY: Alert and oriented x3. Mood and affect normal. INVESTIGATIONS: White count 23.3, hemoglobin 7.4, potassium 3.8, BUN 36, creatinine 2.03. Chest x-ray showing some improved aeration. ASSESSMENT: 1. Acute non ST elevation myocardial infarction with stent to the circumflex. 2. Coronary artery disease, prior stent in April 2018. 3. AICD. 4. Idiopathic thrombocytopenia purpura. 5. Colonic diverticulosis asymptomatic. 6. Primary osteoarthritis, lower back. 7. Obesity; BMI 33. 8. Acute kidney injury nodule is likely acute tubular necrosis, combination of hypertension and contrast induced nephropathy, started to turn around. 9. Acute metabolic acidosis from renal failure. 10.Hyperkalemia due to renal failure better. 11.Normocytic anemia cause unknown. 12.Acute congestive heart failure from coronary artery disease, EF 35-40 percent that is systolic dysfunction. 13.Cardiogenic shock. The patient is status post intra-aortic balloon pump. Pressors have all been discontinued. 14.Possible pneumonia for which patient empirically on antibiotics. PLAN: Continue current medication and treatment plan. Supportive care. Antibiotics as above. Care was discussed with the patient. MMODL / IJN: [id number] /
--- NOTE | 2018-08-15 09:15 | P.PN ---
Subjective Patient is seen in follow-up for acute kidney injury on chronic kidney disease. Patient has chronic kidney disease stage III with baseline creatinine in the range of 1.1-1.3 secondary to nephrosclerosis. Creatinine peaked at 2.6 and is down to 1.63 today. Patient had a cardiac catheterization on August 11 and had a stent placed to the proximal circumflex. He had an intra-aortic balloon pump placed which was removed on August 13. He's off Levophed and dobutamine. He is maintained on Lasix 40 mg IV twice daily and is diuresing well. Denies any active chest pain but does admit to dyspnea at times. Vital signs are stable. General: The patient appeared well nourished and normally developed. HEENT: Head exam is unremarkable. Neck is without jugular venous distension. LUNGS: Lungs are clear to auscultation and percussion. Breath sounds decreased. HEART: Rate and Rhythm are regular. First and second heart sounds normal. No murmurs, rubs or gallops. ABDOMEN: Abdominal exam reveals normal bowel sounds. Non-tender and non- distended. No evidence of peritonitis. EXTREMITITES: Trace edema. Objective - Vital Signs Vital signs: Vital Signs Temp 98.4 F 08/15/18 04:00 Pulse 71 08/15/18 07:30 Resp 25 H 08/15/18 07:00 BP 118/61 08/15/18 07:00 Pulse Ox 99 08/15/18 07:00 Intake & Output 08/14/18 08/15/18 08/15/18 18:59 06:59 18:59 Intake Total 887 766 56 Output Total 3049 2507 200 Balance -9059 -7480 -144 Weight 112.7 kg Intake: IV 647 666 56 Magnesium Sulfate-D5w Pmx 200 1 gm In Dextrose/Water 1 100ml.bag @ 100 mls/hr IVPB Q1H [facility] Rx#: [id number] Piperacillin-Tazobactam 3 175 25 .375 gm In Sodium Chloride 0.9% 100 ml @ 25 mls/hr IVPB Q8HR [facility] Rx# :[id number] Sodium Chloride 0.9% 1, 100 575 50 000 ml @ 50 mls/hr IV . Q20H [facility] Rx#:[id number] Sodium Ferric Gluconat- 100 Sucrose 125 mg In Sodium Chloride 0.9% 100 ml @ 100 mls/hr IVPB DAILY [facility] Rx#:[id number] pressure bags 72 66 6 Oral 240 100 Output: Urine 2550 2500 200 Stool 9 7 Other: Voiding Method Indwelling Catheter Indwelling Catheter # Voids 1 1 ABP, PAP, CO, CI - Last Documented Arterial Blood Pressure 102/47 - Labs CBC & Chem 7: 08/15/18 04:23 08/15/18 04:23 Labs: Abnormal Lab Results - Last 24 Hours (Table) 08/14/18 08/14/18 08/14/18 Range/Units 11:51 16:43 21:05 WBC (3.8-10.6) k/uL RBC (4.30-5.90) m/uL Hgb (13.0-17.5) gm/dL Hct (39.0-53.0) % RDW (11.5-15.5) % Neutrophils # (Manual) (1.3-7.7) k/uL Monocytes # (Manual) (0-1.0) k/uL Potassium (3.5-5.1) mmol/L BUN (9-20) mg/dL Creatinine (0.66-1.25) mg/dL Glucose (74-99) mg/dL POC Glucose (mg/dL) 239 H 205 H 184 H (75-99) mg/dL Calcium (8.4-10.2) mg/dL Magnesium (1.6-2.3) mg/dL 08/15/18 08/15/18 08/15/18 Range/Units 04:23 04:23 06:57 WBC 14.6 H (3.8-10.6) k/uL RBC 2.56 L (4.30-5.90) m/uL Hgb 7.5 L (13.0-17.5) gm/dL Hct 22.8 L (39.0-53.0) % RDW 19.6 H (11.5-15.5) % Neutrophils # (Manual) 10.30 H (1.3-7.7) k/uL Monocytes # (Manual) 3.07 H (0-1.0) k/uL Potassium 3.4 L (3.5-5.1) mmol/L BUN 30 H (9-20) mg/dL Creatinine 1.63 H (0.66-1.25) mg/dL Glucose 189 H (74-99) mg/dL POC Glucose (mg/dL) 195 H (75-99) mg/dL Calcium 7.2 L (8.4-10.2) mg/dL Magnesium 1.3 L (1.6-2.3) mg/dL Microbiology - Last 24 Hours (Table) 08/12/18 05:00 Blood Culture - Preliminary Blood No Growth after 72 hours 08/12/18 04:50 Blood Culture - Preliminary Blood No Growth after 72 hours 08/12/18 06:25 Gram Stain - Final Sputum Sputum Culture - Final Assessment and Plan Plan: Assessment: 1. Nonoliguric acute kidney injury secondary to ATN secondary to hypotension as well as contrast-induced nephropathy. Creatinine peaked at 2.6 and is down to 1.63 today. 2. Chronic kidney disease stage III with baseline creatinine in the range of 1.1-1.3 secondary to nephrosclerosis. 3. NSTEMI status post cardiac catheterization and a stent placement to the proximal circumflex artery on August 11. Currently has intra-aortic balloon pump in place. 4. Metabolic acidosis secondary to acute kidney injury maintain on sodium bicarbonate. Better. 5. Hypotension related to underlying cardiac status. Better. Off Levophed. 6. Anemia. Iron deficiency noted. No active bleeding noted. 7. Hypomagnesemia secondary to diuresis. Plan: Maintain lasix 40 mg IV twice daily. Encourage oral intake. Avoid nephrotoxins. 60 mEq of potassium and 3 g of IV magnesium today. 125 mg IV Ferrlecit daily for 3 days. Second dose today.
[2018-08-15] MEDS: PIPERACILLIN-TAZOBACTAM 3.375 GM in SODIUM CHLORIDE 0.9% 100 ML IVPB SCH ×3 (09:34→23:58)
[2018-08-15] MEDS: PANTOPRAZOLE 40 MG/10 ML VIAL IV SCH (09:35)
[2018-08-15] MEDS: CLOPIDOGREL 75 MG TAB PO SCH (09:35)
[2018-08-15] MEDS: FUROSEMIDE 10 MG/ML 4 ML VIAL IV SCH ×2 (09:35→20:29)
[2018-08-15] MEDS: SODIUM BICARBONATE TAB 650 MG TAB PO SCH ×2 (09:35→20:29)
[2018-08-15] MEDS: ASPIRIN 81 MG PO SCH (09:36)
[2018-08-15] MEDS: ATORVASTATIN 40 MG TAB PO SCH (09:36)
[2018-08-15] MEDS: ELTROMBOPAG PO SCH (09:45)
[2018-08-15] MEDS: SODIUM FERRIC GLUCONAT-SUCROSE 125 MG in SODIUM CHLORIDE 0.9% 100 ML IVPB SCH (10:22)
--- NOTE | 2018-08-15 10:34 | P.PN ---
Subjective Progress Note Date: 08/15/18 This is a 73-year-old gentleman with history of ischemic heart disease with previous stent placement of LAD and also AICD implantation who was admitted to the hospital with shortness of breath and evidence of non-ST elevation CA. Patient had a cardiac catheterization and was found to have significant disease involving the circumflex. Patient had stent placement and also intractable balloon pump. Balloon pump was removed yesterday. Patient is still complaining of shortness of breath but overall feeling better. His creatinine is improved. His blood pressure is more stable. He is off Levophed and dobutamine is being weaned off. We are going to start him on small dose of Coreg. He still on IV Lasix which will be discontinued. Patient is diuresing well. 08/15/2018: The patient is doing much better. His creatinine has improved to 1.6. His urine output is excellent. Chest x-ray showed some bilateral lower lobe infiltrate infiltrates. He doesn't seem to be in acute distress. He does complain of nightmares. His blood pressure is stable. I'm going to start him on Coreg 3.125 mg by mouth twice a day. He is to be on sotalol 80 mg by mouth twice a day for ventricular arrhythmias. Nephrology suggested that patient to be continued on IV Lasix. Patient is walking with help. Patient could be transferred to telemetry unit from [facility] standpoint. We'll may repeat echocardiogram on Thursday, to assess LV function. Again Objective - Vital Signs Vital signs: Vital Signs Temp 98.4 F 08/15/18 04:00 Pulse 71 08/15/18 07:30 Resp 25 H 08/15/18 07:00 BP 118/61 08/15/18 07:00 Pulse Ox 99 08/15/18 07:00 Intake & Output 08/14/18 08/15/18 08/15/18 18:59 06:59 18:59 Intake Total 887 766 56 Output Total 4030 5597 200 Balance -7464 -1671 -329 Weight 112.7 kg Intake: IV 647 666 56 Magnesium Sulfate-D5w Pmx 200 1 gm In Dextrose/Water 1 100ml.bag @ 100 mls/hr IVPB Q1H [facility] Rx#: [id number] Piperacillin-Tazobactam 3 175 25 .375 gm In Sodium Chloride 0.9% 100 ml @ 25 mls/hr IVPB Q8HR [facility] Rx# :[id number] Sodium Chloride 0.9% 1, 100 575 50 000 ml @ 50 mls/hr IV . Q20H [facility] Rx#:[id number] Sodium Ferric Gluconat- 100 Sucrose 125 mg In Sodium Chloride 0.9% 100 ml @ 100 mls/hr IVPB DAILY [facility] Rx#:[id number] pressure bags 72 66 6 Oral 240 100 Output: Urine 2550 2500 200 Stool 9 7 Other: Voiding Method Indwelling Catheter Indwelling Catheter # Voids 1 1 ABP, PAP, CO, CI - Last Documented Arterial Blood Pressure 102/47 - Exam GENERAL EXAM: Patient is alert and oriented and doesn't appear to be in any acute distress HEENT: Normocephalic. Normal reaction of pupils, equal size, normal range of extraocular motion. No erythema or exudates in the throat. NECK: No masses, no nuchal rigidity. CHEST: No chest wall deformity. LUNGS: Diminished breath sounds HEART: S1 and S2 normal with no audible mumurs or gallops. Regular rhythm, femorals equal on both sides.. ABDOMEN: No hepatosplenomegaly, normal bowel sounds, no guarding or rigidity. SKIN: No rashes CENTRAL NERVOUS SYSTEM: No focal deficits. EXTREMITIES: No cyanosis, clubbing or edema. - Labs CBC & Chem 7: 08/15/18 04:23 08/15/18 04:23 Labs: Abnormal Lab Results - Last 24 Hours (Table) 08/14/18 08/14/18 08/14/18 Range/Units 11:51 16:43 21:05 WBC (3.8-10.6) k/uL RBC (4.30-5.90) m/uL Hgb (13.0-17.5) gm/dL Hct (39.0-53.0) % RDW (11.5-15.5) % Neutrophils # (Manual) (1.3-7.7) k/uL Monocytes # (Manual) (0-1.0) k/uL Potassium (3.5-5.1) mmol/L BUN (9-20) mg/dL Creatinine (0.66-1.25) mg/dL Glucose (74-99) mg/dL POC Glucose (mg/dL) 239 H 205 H 184 H (75-99) mg/dL Calcium (8.4-10.2) mg/dL Magnesium (1.6-2.3) mg/dL 08/15/18 08/15/18 08/15/18 Range/Units 04:23 04:23 06:57 WBC 14.6 H (3.8-10.6) k/uL RBC 2.56 L (4.30-5.90) m/uL Hgb 7.5 L (13.0-17.5) gm/dL Hct 22.8 L (39.0-53.0) % RDW 19.6 H (11.5-15.5) % Neutrophils # (Manual) 10.30 H (1.3-7.7) k/uL Monocytes # (Manual) 3.07 H (0-1.0) k/uL Potassium 3.4 L (3.5-5.1) mmol/L BUN 30 H (9-20) mg/dL Creatinine 1.63 H (0.66-1.25) mg/dL Glucose 189 H (74-99) mg/dL POC Glucose (mg/dL) 195 H (75-99) mg/dL Calcium 7.2 L (8.4-10.2) mg/dL Magnesium 1.3 L (1.6-2.3) mg/dL Microbiology - Last 24 Hours (Table) 08/12/18 05:00 Blood Culture - Preliminary Blood No Growth after 72 hours 08/12/18 04:50 Blood Culture - Preliminary Blood No Growth after 72 hours 08/12/18 06:25 Gram Stain - Final Sputum Sputum Culture - Final Assessment and Plan (1) Acute non-ST segment elevation myocardial infarction (STEMI) following previous myocardial infarction Current Visit: Yes Status: Acute Code(s): I22.9 - [facility] (2) ARF (acute renal failure) Current Visit: No Status: Acute Code(s): N17.9 - ACUTE KIDNEY FAILURE, UNSPECIFIED SNOMED Code(s): 77624940 (3) Anemia Current Visit: No Status: Acute Code(s): D64.9 - ANEMIA, UNSPECIFIED SNOMED Code(s): 253065925 (4) Diabetes mellitus Current Visit: No Status: Acute Code(s): E11.9 - TYPE 2 DIABETES MELLITUS WITHOUT COMPLICATIONS SNOMED Code(s): 64562226 (5) Gastroenteritis Current Visit: No Status: Acute Code(s): K52.9 - NONINFECTIVE GASTROENTERITIS AND COLITIS, UNSPECIFIED SNOMED Code(s): 98019271 (6) Cardiomyopathy Current Visit: Yes Status: Acute Code(s): I42.9 - CARDIOMYOPATHY, UNSPECIFIED SNOMED Code(s): 86594989 (7) Congestive heart failure Current Visit: Yes Status: Acute Code(s): I50.9 - HEART FAILURE, UNSPECIFIED SNOMED Code(s): 27548102 Plan: Patient has improved. His creatinine has come down to 1.6. He denies any chest pain or shortness of breath. Patient is having some nightmares. Other than that seems to be clinically stable. I'll start him on Coreg. I will repeat his echo [place] on Thursday. May consider adding sotalol. Subsequently.
[2018-08-15 12:30] LABS: Glucose,Whole Blood 223 mg/dL (75-99)
--- NOTE | 2018-08-15 14:52 | P.PN ---
Subjective Progress Note Date: 08/15/18 On 08/12/2018 the patient is being seen for a follow-up. The patient is known to have coronary artery disease and he is post acute non-ST segment elevation myocardial infarction. He has severe ischemic artery myopathy and is post AICD placement. The patient was taken [facility] yesterday and underwent stenting of the circumflex, and intra-aortic balloon pump was inserted and following that the patient was transferred to the intensive care unit. Initially the patient was on a intra-aortic balloon pump with a one-to-one ratio augmentation. The patient was also on a combination of pressors including dopamine 2.5 g per KG per minute, norepinephrine infusion running at 12 g per KG per minute and dobutamine. A triple lumen catheter inserted in the CVP was above 12 consistently. The patient was started on diuretics and the patient produced adequate amount of urine output over the past when he 4 hours and currently the patient negative fluid balance. His morning the patient is on 6 L of oxygen by nasal cannula. Intra-aortic balloon pump is still maintained. The augmented blood pressure was 70. The patient is still on the same pressor doses. He was having some increased cough and congestion and some sputum production without any fever. White cell count was noted to be high this morning and based on that the patient was started on empiric antibiotic coverage with IV Zosyn . It was noted the patient's hemoglobin dropped down to 7.7. The patient was having blood wasn't from the puncture sites including the intra-aortic balloon puncture site and the right IJ triple-lumen catheter puncture site. The bleeding was controlled. IV heparin was resumed. It's likely that hemoglobin drop was secondary to the blood loss from the skin surface. On today's evaluation, he is alert and awake. He denies having any chest pain. No significant shortness of breath. Chest x-ray from this morning shows bilateral consolidation pleural effusions consistent with CHF. The net fluid balance over the past 24 hours is +946 mL and the patient remains in a positive fluid balance of 1.1 L for today. Otherwise, no other significant events. Adequate pulses in all 4 extremities. The patient is seen today 08/13/2018 in follow-up in the intensive care unit. He is currently awake and alert in no acute distress. He denies any chest pain , palpitations lightheadedness or dizziness. He remains in atrial fibrillation with occasional ventricular pacing. He remains on norepinephrine at 12 mcg/m. His was a size 22 mcg/m last evening. He is on dobutamine at 2.5 mcg/kg/m. Dopamine has been discontinued. He remains with the intra-aortic balloon pump maintaining augmented pressures of 65. He is on a 1:3 ratio this morning. He denies any worsening shortness of breath, cough or congestion. He is maintaining O2 saturations in the mid 90s on 3 L/m per nasal cannula. Maintaining mean arterial pressures in the 60s. CVP 19. White count 31.9. Hemoglobin 7.6. INR 1.4. Basic metabolic panel pending. Creatinine He is having issues with diarrhea. C. difficile toxin screen was negative 2. Blood culture reveals no growth. Urine and sputum cultures are pending. Current temp 100.4 axillary. He remains on Zosyn. On 08/14/2018, the patient is sitting up on a chair. The intra-aortic balloon pump was removed yesterday. Subsequently the patient was gradually weaned off the levo fed and was discontinued yesterday and earlier this morning the dobutamine was also discontinued. The patient is producing good urine output. Renal function is improving. The patient is on Lasix. Fluid balance is -1.3 L 4 today. The patient's family chest pain. The triple-lumen catheter site is clean and dry and intact. The intra-aortic balloon puncture site is also clean. Hemoglobin is stable at 7.4. The patient continues to have a congested cough. The white cell count is dropped down to 23.3 and the patient is currently on empiric antibiotic coverage with IV Zosyn. He is still having some liquidy stool in the stool for C. diff on 2 separate occasions have been negative. Chest x-ray still showing a component of pulmonary vessel congestion/ CHF and the patient is on IV Lasix 40 mg every 12 hours. Note that, the patient is also on a combination of aspirin and Plavix. The patient remains on IV heparin. Oral bicarb was also added regarding the non-anion gap metabolic acidosis. The patient's urine bicarb is at 19. Creatinine is improved is down to 2.0. No chest pain. No altered mentation. No other complaints otherwise for now. On 08/15/2018 I'm seeing this patient for a follow-up. Doing well. No complaints been no respiratory distress. The diarrhea subsided and the patient is producing loose bowel movements while being on IV Zosyn. Still on IV Lasix. Producing good urine output and the patient is a negative fluid balance. Chest x-ray still showing a left-sided pleural effusion in addition to four- vessel congestion/edema and the patient will continue on diuretics follow 24 hours. No fever or chills. No pressors. Renal function continues to improve. IV heparin was discontinued. No signs of any acute bleeding and hemoglobin is stable for now. Cardiology is on the case. Objective - Vital Signs Vital signs: Vital Signs Temp 97.9 F 08/15/18 12:00 Pulse 78 08/15/18 14:00 Resp 26 H 08/15/18 14:00 BP 128/73 08/15/18 08:00 Pulse Ox 95 08/15/18 13:00 Intake & Output 08/14/18 08/15/18 08/15/18 18:59 06:59 18:59 Intake Total 887 766 745 Output Total 2559 2507 1775 Balance -7793 -3051 -1030 Weight 112.7 kg Intake: IV 647 666 495 Magnesium Sulfate-D5w Pmx 200 1 gm In Dextrose/Water 1 100ml.bag @ 100 mls/hr IVPB Q1H [facility] Rx#: [id number] Piperacillin-Tazobactam 3 175 25 50 .375 gm In Sodium Chloride 0.9% 100 ml @ 25 mls/hr IVPB Q8HR [facility] Rx# :[id number] Sodium Chloride 0.9% 1, 100 575 400 000 ml @ 50 mls/hr IV . Q20H [facility] Rx#:[id number] Sodium Ferric Gluconat- 100 Sucrose 125 mg In Sodium Chloride 0.9% 100 ml @ 100 mls/hr IVPB DAILY [facility] Rx#:[id number] pressure bags 72 66 45 Oral 240 100 250 Output: Urine 2550 2500 1775 Stool 9 7 Other: Voiding Method Indwelling Catheter Indwelling Catheter Indwelling Catheter # Voids 1 1 # Bowel Movements 1 ABP, PAP, CO, CI - Last Documented Arterial Blood Pressure 101/51 - Exam GENERAL EXAM: Alert, pleasant, 73-year-old obese white male comfortable in no apparent distress. The patient is resting comfortably in bed on oxygen at 3 L per minute nasal cannula. HEAD: Normocephalic/atraumatic. EYES: Normal reaction of pupils, equal size. Conjunctiva pink, sclera white. NOSE: Clear with pink turbinates. THROAT: No erythema or exudates. NECK: No masses, no JVD, no thyroid enlargement, no adenopathy. The patient also has a triple lumen catheter in the right IJ. CHEST: No chest wall deformity. Symmetrical expansion. LUNGS: Breath sounds are diminished bilaterally along with some bibasilar crackles. CVS: Regular rate and rhythm, normal S1 and S2, no gallops, no murmurs, no rubs ABDOMEN: Soft, nontender. No hepatosplenomegaly, normal bowel sounds, no guarding or rigidity. EXTREMITIES: No clubbing, no edema, no cyanosis, diminished pulses and upper and lower extremities. The patient has an intra-aortic balloon pump in the right femoral artery and the exit site is clean without evidence of any acute bleeding. MUSCULOSKELETAL: Muscle strength and tone normal. SPINE: No scoliosis or deformity SKIN: No rashes CENTRAL NERVOUS SYSTEM: Alert and oriented -3. No focal deficits, tone is normal in all 4 extremities. PSYCHIATRIC: Alert and oriented -3. Appropriate affect. Intact judgment and insight. - Labs CBC & Chem 7: 08/15/18 04:23 08/15/18 04:23 Labs: Abnormal Lab Results - Last 24 Hours (Table) 08/14/18 08/14/18 08/15/18 Range/Units 16:43 21:05 04:23 WBC (3.8-10.6) k/uL RBC (4.30-5.90) m/uL Hgb (13.0-17.5) gm/dL Hct (39.0-53.0) % RDW (11.5-15.5) % Neutrophils # (Manual) (1.3-7.7) k/uL Monocytes # (Manual) (0-1.0) k/uL Potassium 3.4 L (3.5-5.1) mmol/L BUN 30 H (9-20) mg/dL Creatinine 1.63 H (0.66-1.25) mg/dL Glucose 189 H (74-99) mg/dL POC Glucose (mg/dL) 205 H 184 H (75-99) mg/dL Calcium 7.2 L (8.4-10.2) mg/dL Magnesium 1.3 L (1.6-2.3) mg/dL 08/15/18 08/15/18 08/15/18 Range/Units 04:23 06:57 12:19 WBC 14.6 H (3.8-10.6) k/uL RBC 2.56 L (4.30-5.90) m/uL Hgb 7.5 L (13.0-17.5) gm/dL Hct 22.8 L (39.0-53.0) % RDW 19.6 H (11.5-15.5) % Neutrophils # (Manual) 10.30 H (1.3-7.7) k/uL Monocytes # (Manual) 3.07 H (0-1.0) k/uL Potassium (3.5-5.1) mmol/L BUN (9-20) mg/dL Creatinine (0.66-1.25) mg/dL Glucose (74-99) mg/dL POC Glucose (mg/dL) 195 H 223 H (75-99) mg/dL Calcium (8.4-10.2) mg/dL Magnesium (1.6-2.3) mg/dL Microbiology - Last 24 Hours (Table) 08/12/18 05:00 Blood Culture - Preliminary Blood No Growth after 72 hours 08/12/18 04:50 Blood Culture - Preliminary Blood No Growth after 72 hours 08/12/18 06:25 Gram Stain - Final Sputum Sputum Culture - Final Assessment and Plan Plan: Assessment 1 acute non-ST segment elevation myocardial infarction, status post emergent cardiac catheterization and stenting of the circumflex. Patient is currently free of any chest pain. Hemodynamically stable. 2 acute hypotension, likely cardiogenic shock, post insertion and removal of intra-aortic balloon pump. The patient was also on a combination of pressors which got weaned off and discontinued. Hemodynamically stable and improved urine output. The patient has been off pressors for the past 48 hours. Intra- aortic balloon pump was also discontinued. 3 CHF with cardiomyopathy severe ischemic in nature and the patient has an AICD in place. Echocardiogram was done and the patient has an ejection fraction of 3035%. The LAD is severely dilated. No significant pulmonary hypertension. 4 acute hypoxic respiratory failure secondary to CHF/edema and the patient is currently on 3 L per minute nasal cannula 5 acute on chronic kidney injury. Urine output is improving and the creatinine is down to 2.0 and the patient continues to have a component of non-anion gap metabolic acidosis and the patient is currently on oral bicarb. 6 diabetes mellitus type 2 7 COPD 8 chronic smoker 9 history of ITP 10 anemia with interval drop in hemoglobin is stable for now, hemoglobin stable at 7.5 11 acute leukocytosis, rule out reactive leukocytosis secondary to stress, rule out underlying infection/pneumonia/UTI, white cell count is improving and the patient is afebrile for now on IV Zosyn. The white cell count is improving and the patient believes it on is down to 14.6. Remains afebrile. Diarrhea is also subsiding. PLAN Discontinue IV heparin switch this patient subcu heparin for DVT prophylaxis. Continue IV Lasix. Continue Coreg. \. Monitor white cell count. Repeat chest x-ray in the morning. I switched to oral Lasix and this continued IV Zosyn in a.m. IV fluids can be cut down to KVO.
[2018-08-15] MEDS: DEXTROSE/WATER 1 500ML.BAG with DOPamine DRIP 800 MG IV SCH (15:06)
[2018-08-15] MEDS ORDERED: POTASSIUM CHLORIDE ER 20 MEQ TAB.ER PO STA (15:56)
[2018-08-15] MEDS: HEPARIN SODIUM,PORCINE 5,000 UNIT/ML 1 ML VIAL SQ SCH ×2 (16:47→23:57)
[2018-08-15] MEDS: SODIUM CHLORIDE 0.9% 1,000 ML IV SCH (16:50)
[2018-08-15] MEDS: CARVEDILOL 3.125 MG TAB PO SCH (17:28)
[2018-08-15 17:36] LABS: Glucose,Whole Blood 207 mg/dL (75-99)
[2018-08-15 20:29] LABS: Glucose,Whole Blood 225 mg/dL (75-99)
--- NOTE | 2018-08-16 00:04 | PN ---
PROGRESS NOTE DATE OF SERVICE: 08/15/2018. PRESENT COMPLAINT: Tired. INTERVAL HISTORY: The patient with acute non ST elevation myocardial infarction with coronary intervention went into cardiogenic shock. Had intra-aortic balloon pump placed, that has been out. Also had acute renal failure. The patient is taken off all the pressors now. Has a Rehman catheter in place. Telemetry shows a ventricular paced. He is looking a bit more peppier. REVIEW OF SYSTEMS: Done for constitutional, cardiovascular, GI, pulmonary; relevant findings as above. Oral intake is improving. Has a Rehman catheter in place. PHYSICAL EXAMINATION: Temperature 97.9, pulse 72, respirations 29, blood pressure 127/47, pulse ox 91 percent on room air. GENERAL APPEARANCE: Sitting in a chair, looking better. EYES: Pupils equal. Conjunctivae pale. HEENT: External appearance of nose and ears normal. Oral cavity normal. NECK: JVD unable to assess. Mass not palpable. Respiratory effort increased. LUNGS: Decreased breath sounds. CARDIOVASCULAR: Heart sounds irregular, some edema. ABDOMEN: Soft, nontender. Liver and spleen not palpable. Rehman catheter in place. PSYCHIATRY: Alert and oriented x3. Mood and affect normal. INVESTIGATIONS: White count 14.6, hemoglobin 7.5, potassium 3.4, BUN 30, creatinine 1.63. ASSESSMENT: 1. Acute non ST elevation myocardial infarction with stent to the circumflex. 2. Coronary artery prior stent in April of 2018. 3. Automatic implantable cardioverter defibrillator. 4. Idiopathic thrombocytopenic purpura. 5. Colonic diverticulosis, asymptomatic. 6. Primary osteoarthritis of the lower back. 7. Obesity; BMI 33. 8. Acute kidney injury, likely acute tubular necrosis, combination of hypotension and contrast induced nephropathy, started to turn around. 9. Acute metabolic acidosis from renal failure. 10.Hyperkalemia due to renal failure. 11.Normocytic anemia cause unknown. 12.Acute congestive heart failure from coronary artery disease, EF 35% to 40%, that is systolic dysfunction. 13.Cardiogenic shock status post intra-aortic balloon pump and pressors that have all been discontinued. 14.Possible pneumonia for which patient is empirically on antibiotics. PLAN: Care was discussed with the patient. Overall started to respond. Renal function is actually improving. Hopefully, Rehman catheter can be discontinued tomorrow. MMODL / IJN: [id number] /
[2018-08-16 05:24] LABS: Anisocytosis Slight; HCT 23.7 % (39.0-53.0); HGB 7.7 gm/dL (13.0-17.5); Hypochromasia Moderate; MCH 28.9 pg (25.0-35.0); MCHC 32.5 g/dL (31.0-37.0); MCV 88.9 fL (80.0-100.0); Mean Platelet Volume 12.1; Platelet Count 213 k/uL (150-450); Poikilocytosis Slight; RBC 2.67 m/uL (4.30-5.90); RDW 19.9 % (11.5-15.5); WBC 11.9 k/uL (3.8-10.6)
[2018-08-16 05:34] LABS: Calcium 7.8 mg/dL (8.4-10.2); Magnesium 1.4 mg/dL (1.6-2.3)
[2018-08-16 06:15] LABS: Band Neutrophils % 7 %; Eosinophils # (M) 0.12 k/uL (0-0.7); Lymphocytes # (M) 0.83 k/uL (1.0-4.8); Monocytes # (M) 2.38 k/uL (0-1.0); Neutrophils % (M) 65 %; Nucleated Red Blood Cells 0 /100 WBC (0-0); Total Cells Counted 100
[2018-08-16] MEDS ORDERED: Magnesium Replacement Protocol 1 EACH MISC MISCELLANE PRN (06:15)
[2018-08-16 06:18] LABS: Anisocytosis (M) Present
[2018-08-16] MEDS: MAGNESIUM SULFATE-D5W PMX 1 GM in DEXTROSE/WATER 1 100ML.BAG IVPB SCH ×3 (06:30→10:48)
[2018-08-16] MEDS: INSULIN ASPART 100 UNIT/ML 1 ML 10 ML VIAL SQ SCH ×4 (07:14→21:26)
[2018-08-16] MEDS: CARVEDILOL 3.125 MG TAB PO SCH ×2 (07:14→18:26)
[2018-08-16 07:20] LABS: Glucose,Whole Blood 182 mg/dL (75-99)
--- NOTE | 2018-08-16 07:59 | XR ---
EXAMINATION TYPE: XR chest 1V DATE OF EXAM: 08/16/2018 COMPARISON: Prior chest 08/15/2018 HISTORY: Congestive heart failure TECHNIQUE: Single frontal view of the chest is obtained. FINDINGS: There is some improvement in the interstitium in the interval. Right jugular central venou s catheter, pacemaker leads are stable. There are overlying cardiac leads. Patient is rotated. No roberto dent pneumothorax. Basilar density persists. IMPRESSION: There is some improvement in volume status. Additional follow-up recommended. Probable b asilar effusion.
[2018-08-16] MEDS: IPRATROPIUM-ALBUTEROL 3 ML NEB INHALATION SCH ×2 (08:46→20:24)
[2018-08-16] MEDS: HEPARIN SODIUM,PORCINE 5,000 UNIT/ML 1 ML VIAL SQ SCH ×2 (08:50→18:26)
[2018-08-16] MEDS: SODIUM BICARBONATE TAB 650 MG TAB PO SCH ×2 (08:51→21:26)
[2018-08-16] MEDS: FUROSEMIDE 10 MG/ML 4 ML VIAL IV SCH (08:51)
[2018-08-16] MEDS: ATORVASTATIN 40 MG TAB PO SCH (08:51)
[2018-08-16] MEDS: PANTOPRAZOLE 40 MG/10 ML VIAL IV SCH (08:51)
[2018-08-16] MEDS: ASPIRIN 81 MG PO SCH (08:52)
[2018-08-16] MEDS: CLOPIDOGREL 75 MG TAB PO SCH (08:52)
--- NOTE | 2018-08-16 09:31 | P.PN ---
Subjective Patient is seen in follow-up for acute kidney injury on chronic kidney disease. Patient has chronic kidney disease stage III with baseline creatinine in the range of 1.1-1.3 secondary to nephrosclerosis. Creatinine peaked at 2.6 and is down to 1.37 today. Patient had a cardiac catheterization on August 11 and had a stent placed to the proximal circumflex. He had an intra-aortic balloon pump placed which was removed on August 13. He's off Levophed and dobutamine. He is maintained on Lasix 40 mg IV twice daily and is diuresing well. Denies any active chest pain or shortness of breath at this time. Vital signs are stable. General: The patient appeared well nourished and normally developed. HEENT: Head exam is unremarkable. Neck is without jugular venous distension. LUNGS: Lungs are clear to auscultation and percussion. Breath sounds decreased. HEART: Rate and Rhythm are regular. First and second heart sounds normal. No murmurs, rubs or gallops. ABDOMEN: Abdominal exam reveals normal bowel sounds. Non-tender and non- distended. No evidence of peritonitis. EXTREMITITES: Trace edema. Objective - Vital Signs Vital signs: Vital Signs Temp 98.5 F 08/16/18 04:00 Pulse 70 08/16/18 08:57 Resp 14 08/16/18 04:00 BP 103/58 08/16/18 04:00 Pulse Ox 96 08/16/18 04:00 Intake & Output 08/15/18 08/16/18 08/16/18 18:59 06:59 18:59 Intake Total 858 483 Output Total 1926 1596 Balance -1068 -1113 Weight 0 g Intake: IV 508 233 Piperacillin-Tazobactam 3 50 100 .375 gm In Sodium Chloride 0.9% 100 ml @ 25 mls/hr IVPB Q8HR JESS Rx# :[id number] Sodium Chloride 0.9% 1, 410 130 000 ml @ 10 mls/hr IV . Q24H JESS Rx#:[id number] pressure bags 48 3 Oral 350 250 Output: Urine 1925 1595 Stool 1 1 Other: Voiding Method Indwelling Catheter Indwelling Catheter Indwelling Catheter # Bowel Movements 1 1 ABP, PAP, CO, CI - Last Documented Arterial Blood Pressure 101/51 - Labs CBC & Chem 7: 08/16/18 05:04 08/16/18 05:04 Labs: Abnormal Lab Results - Last 24 Hours (Table) 08/15/18 08/15/18 08/15/18 Range/Units 12:19 17:25 20:18 WBC (3.8-10.6) k/uL RBC (4.30-5.90) m/uL Hgb (13.0-17.5) gm/dL Hct (39.0-53.0) % RDW (11.5-15.5) % Neutrophils # (Manual) (1.3-7.7) k/uL Lymphocytes # (Manual) (1.0-4.8) k/uL Monocytes # (Manual) (0-1.0) k/uL BUN (9-20) mg/dL Creatinine (0.66-1.25) mg/dL Glucose (74-99) mg/dL POC Glucose (mg/dL) 223 H 207 H 225 H (75-99) mg/dL Calcium (8.4-10.2) mg/dL Magnesium (1.6-2.3) mg/dL 08/16/18 08/16/18 08/16/18 Range/Units 05:04 05:04 07:08 WBC 11.9 H (3.8-10.6) k/uL RBC 2.67 L (4.30-5.90) m/uL Hgb 7.7 L (13.0-17.5) gm/dL Hct 23.7 L (39.0-53.0) % RDW 19.9 H (11.5-15.5) % Neutrophils # (Manual) 8.50 H (1.3-7.7) k/uL Lymphocytes # (Manual) 0.83 L (1.0-4.8) k/uL Monocytes # (Manual) 2.38 H (0-1.0) k/uL BUN 25 H (9-20) mg/dL Creatinine 1.37 H (0.66-1.25) mg/dL Glucose 158 H (74-99) mg/dL POC Glucose (mg/dL) 182 H (75-99) mg/dL Calcium 7.8 L (8.4-10.2) mg/dL Magnesium 1.4 L (1.6-2.3) mg/dL Microbiology - Last 24 Hours (Table) 08/12/18 05:00 Blood Culture - Preliminary Blood No Growth after 96 hours 08/12/18 04:50 Blood Culture - Preliminary Blood No Growth after 96 hours Assessment and Plan Plan: Assessment: 1. Nonoliguric acute kidney injury secondary to ATN secondary to hypotension as well as contrast-induced nephropathy. Creatinine peaked at 2.6 and is down to 1.37 today. 2. Chronic kidney disease stage III with baseline creatinine in the range of 1.1-1.3 secondary to nephrosclerosis. 3. NSTEMI status post cardiac catheterization and a stent placement to the proximal circumflex artery on August 11. Currently has intra-aortic balloon pump in place. 4. Metabolic acidosis secondary to acute kidney injury maintain on sodium bicarbonate. Better. 5. Hypotension related to underlying cardiac status. Better. Off Levophed. 6. Anemia. Iron deficiency noted. No active bleeding noted. 7. Hypomagnesemia secondary to diuresis. Being replaced. Plan: Maintain lasix 40 mg IV twice daily. Encourage oral intake. Avoid nephrotoxins. 125 mg IV Ferrlecit daily for 3 days. Third dose today.
--- NOTE | 2018-08-16 10:21 | ECHOF ---
Referral Reason:Chest pain and cardiomyopathy MEASUREMENTS -------- HEIGHT: 180.3 cm WEIGHT: 112.5 kg BP: 103/58 FINDINGS -------- Sinus rhythm. This was a technically difficult study with suboptimal views. Limited Study Overall left ventricular systolic function is moderately impaired with, an EF between 35 - 40 %. Ba mary inferoseptal LV wall motion is hypokinetic. Inferiorlateral Hypokinesis Lumason used The pericardium is normal. CONCLUSIONS -------- 1. Sinus rhythm. 2. This was a technically difficult study with suboptimal views. 3. Limited Study for lv function. 4. Overall left ventricular systolic function is moderately impaired with, an EF between 35 - 40 %. 5. Basal inferoseptal LV wall motion is hypokinetic. 6. Inferiorlateral Hypokinesis 7. Lumason used 8. The pericardium is normal. PROFESSOR OF ENVIRONMENTAL STUDIES: Carito Mahan RDCS
[2018-08-16] MEDS: ELTROMBOPAG PO SCH (10:49)
[2018-08-16] MEDS: SODIUM FERRIC GLUCONAT-SUCROSE 125 MG in SODIUM CHLORIDE 0.9% 100 ML IVPB SCH (10:49)
[2018-08-16] MEDS: PIPERACILLIN-TAZOBACTAM 3.375 GM in SODIUM CHLORIDE 0.9% 100 ML IVPB SCH ×2 (12:00→18:29)
[2018-08-16 12:36] LABS: Glucose,Whole Blood 233 mg/dL (75-99)
--- NOTE | 2018-08-16 13:45 | P.PN ---
Subjective Progress Note Date: 08/16/18 Principal diagnosis: Acute non-ST segment elevation myocardial infarction, status post emergent cardiac catheterization and stenting of the circumflex. On 08/12/2018 the patient is being seen for a follow-up. The patient is known to have coronary artery disease and he is post acute non-ST segment elevation myocardial infarction. He has severe ischemic artery myopathy and is post AICD placement. The patient was taken to [facility] yesterday and underwent stenting of the circumflex, and intra-aortic balloon pump was inserted and following that the patient was transferred to the intensive care unit. Initially the patient was on a intra-aortic balloon pump with a one-to-one ratio augmentation. The patient was also on a combination of pressors including dopamine 2.5 g per KG per minute, norepinephrine infusion running at 12 g per KG per minute and dobutamine. A triple lumen catheter inserted in the CVP was above 12 consistently. The patient was started on diuretics and the patient produced adequate amount of urine output over the past when he 4 hours and currently the patient negative fluid balance. His morning the patient is on 6 L of oxygen by nasal cannula. Intra-aortic balloon pump is still maintained. The augmented blood pressure was 70. The patient is still on the same pressor doses. He was having some increased cough and congestion and some sputum production without any fever. White cell count was noted to be high this morning and based on that the patient was started on empiric antibiotic coverage with IV Zosyn . It was noted the patient's hemoglobin dropped down to 7.7. The patient was having blood wasn't from the puncture sites including the intra-aortic balloon puncture site and the right IJ triple-lumen catheter puncture site. The bleeding was controlled. IV heparin was resumed. It's likely that hemoglobin drop was secondary to the blood loss from the skin surface. On today's evaluation, he is alert and awake. He denies having any chest pain. No significant shortness of breath. Chest x-ray from this morning shows bilateral consolidation pleural effusions consistent with CHF. The net fluid balance over the past 24 hours is +946 mL and the patient remains in a positive fluid balance of 1.1 L for today. Otherwise, no other significant events. Adequate pulses in all 4 extremities. The patient is seen today 08/13/2018 in follow-up in the intensive care unit. He is currently awake and alert in no acute distress. He denies any chest pain , palpitations lightheadedness or dizziness. He remains in atrial fibrillation with occasional ventricular pacing. He remains on norepinephrine at 12 mcg/m. His was a size 22 mcg/m last evening. He is on dobutamine at 2.5 mcg/kg/m. Dopamine has been discontinued. He remains with the intra-aortic balloon pump maintaining augmented pressures of 65. He is on a 1:3 ratio this morning. He denies any worsening shortness of breath, cough or congestion. He is maintaining O2 saturations in the mid 90s on 3 L/m per nasal cannula. Maintaining mean arterial pressures in the 60s. CVP 19. White count 31.9. Hemoglobin 7.6. INR 1.4. Basic metabolic panel pending. Creatinine He is having issues with diarrhea. C. difficile toxin screen was negative 2. Blood culture reveals no growth. Urine and sputum cultures are pending. Current temp 100.4 axillary. He remains on Zosyn. On 08/14/2018, the patient is sitting up on a chair. The intra-aortic balloon pump was removed yesterday. Subsequently the patient was gradually weaned off the levo fed and was discontinued yesterday and earlier this morning the dobutamine was also discontinued. The patient is producing good urine output. Renal function is improving. The patient is on Lasix. Fluid balance is -1.3 L 4 today. The patient's family chest pain. The triple-lumen catheter site is clean and dry and intact. The intra-aortic balloon puncture site is also clean. Hemoglobin is stable at 7.4. The patient continues to have a congested cough. The white cell count is dropped down to 23.3 and the patient is currently on empiric antibiotic coverage with IV Zosyn. He is still having some liquidy stool in the stool for C. diff on 2 separate occasions have been negative. Chest x-ray still showing a component of pulmonary vessel congestion/ CHF and the patient is on IV Lasix 40 mg every 12 hours. Note that, the patient is also on a combination of aspirin and Plavix. The patient remains on IV heparin. Oral bicarb was also added regarding the non-anion gap metabolic acidosis. The patient's urine bicarb is at 19. Creatinine is improved is down to 2.0. No chest pain. No altered mentation. No other complaints otherwise for now. On 08/15/2018 I'm seeing this patient for a follow-up. Doing well. No complaints been no respiratory distress. The diarrhea subsided and the patient is producing loose bowel movements while being on IV Zosyn. Still on IV Lasix. Producing good urine output and the patient is a negative fluid balance. Chest x-ray still showing a left-sided pleural effusion in addition to four- vessel congestion/edema and the patient will continue on diuretics follow 24 hours. No fever or chills. No pressors. Renal function continues to improve. IV heparin was discontinued. No signs of any acute bleeding and hemoglobin is stable for now. Cardiology is on the case. On 08/16/2018, patient was seen in the ICU, continues to do well, remains on diuretics and antibiotics, continues to have a small left pleural effusion, may or may not require thoracentesis. I believe the effusion is secondary to systolic congestive heart failure, patient has an ejection fraction of 35%. May benefit in the meantime with using higher dose of diuretics. Labs were reviewed WBC count is 11.9 hemoglobin is 7.7, BUN is 25 creatinine is 1.37 improving over the last few days. Objective - Vital Signs Vital signs: Vital Signs Temp 98.5 F 08/16/18 04:00 Pulse 70 08/16/18 08:57 Resp 14 08/16/18 04:00 BP 103/58 08/16/18 04:00 Pulse Ox 96 08/16/18 04:00 Intake & Output 08/15/18 08/16/18 08/16/18 18:59 06:59 18:59 Intake Total 858 483 Output Total 1926 1596 Balance -1068 -1113 Weight 0 g Intake: IV 508 233 Piperacillin-Tazobactam 3 50 100 .375 gm In Sodium Chloride 0.9% 100 ml @ 25 mls/hr IVPB Q8HR JESS Rx# :[id number] Sodium Chloride 0.9% 1, 410 130 000 ml @ 10 mls/hr IV . Q24H JESS Rx#:[id number] pressure bags 48 3 Oral 350 250 Output: Urine 1925 1595 Stool 1 1 Other: Voiding Method Indwelling Catheter Indwelling Catheter Indwelling Catheter # Bowel Movements 1 1 ABP, PAP, CO, CI - Last Documented Arterial Blood Pressure 101/51 - Exam Physical Exam: Revealed a 73-year-old white male in no distress. Head: Atraumatic, normocephalic. HEENT:[Neck is supple.] [No neck masses.] [No thyromegaly.] [No JVD.] Chest: [Diminished breath sounds at the later bases with left basilar dullness. ] Symmetrical chest expansion, no chest wall tenderness. Cardiac Exam: [Normal S1 and S2, no S3 gallop, no murmur.] Abdomen: [Soft, nontender, no megaly, no rebound, no guarding, normal bowel sounds.] Extremities: [No clubbing, no edema, no cyanosis.] Neurological Exam: [No focal neurologic deficit. Psychiatric: Normal mood affect and mental status examination. Skin: No rashes.] - Labs CBC & Chem 7: 08/16/18 05:04 08/16/18 05:04 Labs: Abnormal Lab Results - Last 24 Hours (Table) 08/15/18 08/15/18 08/16/18 Range/Units 17:25 20:18 05:04 WBC 11.9 H (3.8-10.6) k/uL RBC 2.67 L (4.30-5.90) m/uL Hgb 7.7 L (13.0-17.5) gm/dL Hct 23.7 L (39.0-53.0) % RDW 19.9 H (11.5-15.5) % Neutrophils # (Manual) 8.50 H (1.3-7.7) k/uL Lymphocytes # (Manual) 0.83 L (1.0-4.8) k/uL Monocytes # (Manual) 2.38 H (0-1.0) k/uL BUN (9-20) mg/dL Creatinine (0.66-1.25) mg/dL Glucose (74-99) mg/dL POC Glucose (mg/dL) 207 H 225 H (75-99) mg/dL Calcium (8.4-10.2) mg/dL Magnesium (1.6-2.3) mg/dL 08/16/18 08/16/18 08/16/18 Range/Units 05:04 07:08 12:23 WBC (3.8-10.6) k/uL RBC (4.30-5.90) m/uL Hgb (13.0-17.5) gm/dL Hct (39.0-53.0) % RDW (11.5-15.5) % Neutrophils # (Manual) (1.3-7.7) k/uL Lymphocytes # (Manual) (1.0-4.8) k/uL Monocytes # (Manual) (0-1.0) k/uL BUN 25 H (9-20) mg/dL Creatinine 1.37 H (0.66-1.25) mg/dL Glucose 158 H (74-99) mg/dL POC Glucose (mg/dL) 182 H 233 H (75-99) mg/dL Calcium 7.8 L (8.4-10.2) mg/dL Magnesium 1.4 L (1.6-2.3) mg/dL Microbiology - Last 24 Hours (Table) 08/12/18 05:00 Blood Culture - Preliminary Blood No Growth after 96 hours 08/12/18 04:50 Blood Culture - Preliminary Blood No Growth after 96 hours Assessment and Plan Assessment: Impression: 1 acute non-ST segment elevation myocardial infarction, status post stenting of the circumflex. 2 acute cardiogenic shock and LV dysfunction requiring insertion and a normal of intra-aortic balloon pump. 3 acute systolic congestive heart failure with left pleural effusion, cardiac in nature unless for otherwise. 4 impaired the left ventricular function ejection fraction of 55%. 5 multiple comorbidities including COPD, diabetes type 2, chronic smoking and history of ITP. Recommendation: Continue present treatment plan, continue diuretics, no plans to do thoracentesis at this point, however may consider ultrasound of the chest , especially of the pleural effusion gets any larger or the patient becomes more symptomatic Time with Patient: Less than 30
--- NOTE | 2018-08-16 15:06 | PN ---
PROGRESS NOTE This patient is a ischemic cardiomyopathy acute non-Q-wave myocardial infarction and cardiogenic shock. The patient seems to have improved a lot as compared to 2 days ago. The patient is sitting up in a chair without any dizziness or lightheadedness. The patient laboratory tests and medications are reviewed. Please refer to the medical records for any details. Patient's heart rate is 70 per minute, blood pressure is 103/70 mmHg. First and second heart sounds are normal. Lungs are clinically clear to auscultation and percussion. Abdomen is soft. The patient's creatinine is down to 1.37. The patient's urine output remains good. Chest x-ray shows improvement in the congestive changes. Patient's white count is down to 11,900. We will change the patient to the p.o. Lasix and tomorrow we will start the patient on Entresto. We will hold off the sotalol at present. MMODL / IJN: [id number] /
[2018-08-16 17:06] LABS: Glucose,Whole Blood 226 mg/dL (75-99)
[2018-08-16] MEDS: FUROSEMIDE 40 MG TAB PO SCH (18:26)
[2018-08-16] MEDS: SODIUM CHLORIDE 0.9% 1,000 ML IV SCH (18:27)
--- NOTE | 2018-08-16 21:24 | PN ---
PROGRESS NOTE DATE OF SERVICE: August 16, 2018. PRESENTING COMPLAINT: Tired. INTERVAL HISTORY: The patient with acute non ST myocardial infarction with coronary intervention, went into cardiogenic shock. Had intraaortic balloon pump placed that has been out also had acute renal failure. The patient has been off the pressors. Rehman catheter was in place this morning. The patient is getting paced rhythm. Overall getting better. Oral intake is getting better. REVIEW OF SYSTEMS: Done for constitutional, cardiovascular, GI, pulmonary, relevant findings as above. CURRENT MEDICATIONS: Reviewed. PHYSICAL EXAMINATION: VITAL SIGNS: Temperature 98.5, pulse 74, respiration 14, blood pressure 113/58, pulse ox 96% on 4 L. GENERAL APPEARANCE: Sitting up in a chair, looking better. EYES: Pupils equal. Conjunctivae pale. HEENT: External appearance of nose and ears normal. Oral cavity normal. NECK: JVD unable to assess. Mass not palpable. RESPIRATORY: Effort increased. LUNGS decreased breath sounds. CARDIOVASCULAR: Heart sounds irregular. Some edema. ABDOMEN: Soft, nontender. Liver and spleen not palpable. PSYCHIATRY: Awake, sitting up comfortable. INVESTIGATIONS: White count 11.9, hemoglobin 7.7, potassium 4.0, BUN 25, creatinine 1.37. ASSESSMENT AND PLAN: 1. Acute non ST elevation myocardial infarction with stent to the circumflex. 2. Coronary artery disease with a prior stent in April 2018. 3. AICD. 4. Idiopathic thrombocytopenia purpura. 5. Colonic diverticulosis asymptomatic. 6. Primary osteoarthritis of the lower back. 7. Obesity; BMI 33. 8. Acute kidney injury, likely acute tubular necrosis, combination of hypotension and contrast induced nephropathy, continues to improve. 9. Acute metabolic acidosis from renal failure. 10.Hyperkalemia due to renal failure, better. 11.Normocytic anemia cause unknown. 12.Acute congestive heart failure from coronary artery disease, EF 35-40 percent and systolic dysfunction. 13.Cardiogenic shock status post intra-aortic balloon pump and pressors, all discontinued. 14.Possible pneumonia for which patient on empiric antibiotics. Overall, patient is getting better. Continue current medication and treatment plan. 15.Per Cardiology: Switched over the patient to oral Lasix and start the patient on Entresto tomorrow. Hold off the sotalol at present. MMODL / IJN: [id number] /
[2018-08-16] MEDS: TICAGRELOR 90 MG TAB PO SCH (21:26)
[2018-08-16 21:35] LABS: Glucose,Whole Blood 208 mg/dL (75-99)
[2018-08-16] MEDS: IPRATROPIUM-ALBUTEROL 3 ML NEB INHALATION PRN (21:41)
[2018-08-17] MEDS: ALPRAZolam 0.5 MG TAB PO PRN ×2 (00:20→20:52)
[2018-08-17] MEDS: HEPARIN SODIUM,PORCINE 5,000 UNIT/ML 1 ML VIAL SQ SCH ×4 (00:24→23:49)
[2018-08-17] MEDS: PIPERACILLIN-TAZOBACTAM 3.375 GM in SODIUM CHLORIDE 0.9% 100 ML IVPB SCH ×4 (00:24→23:49)
[2018-08-17] MEDS: IPRATROPIUM-ALBUTEROL 3 ML NEB INHALATION PRN ×2 (00:29→11:09)
[2018-08-17 06:06] LABS: Magnesium 1.4 mg/dL (1.6-2.3); Phosphorus 2.2 mg/dL (2.5-4.5)
[2018-08-17 06:16] LABS: Anisocytosis Slight; HCT 25.1 % (39.0-53.0); Hypochromasia Moderate; MCH 28.2 pg (25.0-35.0); MCHC 31.8 g/dL (31.0-37.0); MCV 88.4 fL (80.0-100.0); Mean Platelet Volume 12.4; Poikilocytosis Slight; RBC 2.84 m/uL (4.30-5.90); RDW 19.8 % (11.5-15.5); WBC 14.2 k/uL (3.8-10.6)
[2018-08-17 06:25] LABS: Calcium 8.1 mg/dL (8.4-10.2)
[2018-08-17 06:48] LABS: Platelet Count 230 k/uL (150-450)
[2018-08-17] MEDS: IPRATROPIUM-ALBUTEROL 3 ML NEB INHALATION SCH ×2 (07:07→20:20)
[2018-08-17 07:40] LABS: Glucose,Whole Blood 179 mg/dL (75-99)
--- NOTE | 2018-08-17 08:08 | XR ---
EXAMINATION TYPE: XR chest 1V portable DATE OF EXAM: 08/17/2018 COMPARISON: Prior chest 08/16/2018 HISTORY: Coronary artery disease and abnormal chest x-ray TECHNIQUE: Single frontal view of the chest is obtained. FINDINGS: Cardiomediastinal silhouette, pulmonary vascularity and phil are not significantly changed . There is no evident airspace disease, pneumothorax, or pleural effusion. Generator and intracardiac defibrillator leads are stable. There are overlying cardiac leads. Interstitium and central vascular ity are mildly prominent. There is interval improved visualization of the left hemidiaphragm. Right j ugular central venous catheter shows the distal tip near the cavoatrial junction. Suspect there is an external jugular central venous catheter on the right. Arthropathy noted in the shoulders. The aorta is dense. IMPRESSION: Suspect improvement in aeration. Additional follow-up recommended.
[2018-08-17] MEDS: INSULIN ASPART 100 UNIT/ML 1 ML 10 ML VIAL SQ SCH ×4 (08:11→20:52)
[2018-08-17] MEDS: CARVEDILOL 3.125 MG TAB PO SCH ×2 (08:12→17:14)
[2018-08-17] MEDS: SODIUM BICARBONATE TAB 650 MG TAB PO SCH ×2 (08:13→20:52)
[2018-08-17] MEDS: FUROSEMIDE 40 MG TAB PO SCH ×2 (08:13→16:01)
[2018-08-17] MEDS: ASPIRIN 81 MG PO SCH (08:13)
[2018-08-17] MEDS: TICAGRELOR 90 MG TAB PO SCH ×2 (08:13→20:52)
[2018-08-17] MEDS: ATORVASTATIN 40 MG TAB PO SCH (08:14)
[2018-08-17] MEDS: SODIUM FERRIC GLUCONAT-SUCROSE 125 MG in SODIUM CHLORIDE 0.9% 100 ML IVPB SCH (08:25)
[2018-08-17] MEDS: ELTROMBOPAG PO SCH (08:57)
[2018-08-17] MEDS: PANTOPRAZOLE 40 MG/10 ML VIAL IV SCH (08:58)
[2018-08-17] MEDS: MAGNESIUM SULFATE-D5W PMX 1 GM in DEXTROSE/WATER 1 100ML.BAG IVPB SCH ×2 (10:27→12:35)
[2018-08-17 10:53] VITALS: BMI 32.7
--- NOTE | 2018-08-17 11:55 | P.PN ---
Subjective Progress Note Date: 08/17/18 Principal diagnosis: Acute non-ST segment elevation myocardial infarction, status post emergent cardiac catheterization and stenting of the circumflex. On 08/12/2018 the patient is being seen for a follow-up. The patient is known to have coronary artery disease and he is post acute non-ST segment elevation myocardial infarction. He has severe ischemic artery myopathy and is post AICD placement. The patient was taken to [facility] yesterday and underwent stenting of the circumflex, and intra-aortic balloon pump was inserted and following that the patient was transferred to the intensive care unit. Initially the patient was on a intra-aortic balloon pump with a one-to-one ratio augmentation. The patient was also on a combination of pressors including dopamine 2.5 g per KG per minute, norepinephrine infusion running at 12 g per KG per minute and dobutamine. A triple lumen catheter inserted in the CVP was above 12 consistently. The patient was started on diuretics and the patient produced adequate amount of urine output over the past when he 4 hours and currently the patient negative fluid balance. His morning the patient is on 6 L of oxygen by nasal cannula. Intra-aortic balloon pump is still maintained. The augmented blood pressure was 70. The patient is still on the same pressor doses. He was having some increased cough and congestion and some sputum production without any fever. White cell count was noted to be high this morning and based on that the patient was started on empiric antibiotic coverage with IV Zosyn . It was noted the patient's hemoglobin dropped down to 7.7. The patient was having blood wasn't from the puncture sites including the intra-aortic balloon puncture site and the right IJ triple-lumen catheter puncture site. The bleeding was controlled. IV heparin was resumed. It's likely that hemoglobin drop was secondary to the blood loss from the skin surface. On today's evaluation, he is alert and awake. He denies having any chest pain. No significant shortness of breath. Chest x-ray from this morning shows bilateral consolidation pleural effusions consistent with CHF. The net fluid balance over the past 24 hours is +946 mL and the patient remains in a positive fluid balance of 1.1 L for today. Otherwise, no other significant events. Adequate pulses in all 4 extremities. The patient is seen today 08/13/2018 in follow-up in the intensive care unit. He is currently awake and alert in no acute distress. He denies any chest pain , palpitations lightheadedness or dizziness. He remains in atrial fibrillation with occasional ventricular pacing. He remains on norepinephrine at 12 mcg/m. His was a size 22 mcg/m last evening. He is on dobutamine at 2.5 mcg/kg/m. Dopamine has been discontinued. He remains with the intra-aortic balloon pump maintaining augmented pressures of 65. He is on a 1:3 ratio this morning. He denies any worsening shortness of breath, cough or congestion. He is maintaining O2 saturations in the mid 90s on 3 L/m per nasal cannula. Maintaining mean arterial pressures in the 60s. CVP 19. White count 31.9. Hemoglobin 7.6. INR 1.4. Basic metabolic panel pending. Creatinine He is having issues with diarrhea. C. difficile toxin screen was negative 2. Blood culture reveals no growth. Urine and sputum cultures are pending. Current temp 100.4 axillary. He remains on Zosyn. On 08/14/2018, the patient is sitting up on a chair. The intra-aortic balloon pump was removed yesterday. Subsequently the patient was gradually weaned off the levo fed and was discontinued yesterday and earlier this morning the dobutamine was also discontinued. The patient is producing good urine output. Renal function is improving. The patient is on Lasix. Fluid balance is -1.3 L 4 today. The patient's family chest pain. The triple-lumen catheter site is clean and dry and intact. The intra-aortic balloon puncture site is also clean. Hemoglobin is stable at 7.4. The patient continues to have a congested cough. The white cell count is dropped down to 23.3 and the patient is currently on empiric antibiotic coverage with IV Zosyn. He is still having some liquidy stool in the stool for C. diff on 2 separate occasions have been negative. Chest x-ray still showing a component of pulmonary vessel congestion/ CHF and the patient is on IV Lasix 40 mg every 12 hours. Note that, the patient is also on a combination of aspirin and Plavix. The patient remains on IV heparin. Oral bicarb was also added regarding the non-anion gap metabolic acidosis. The patient's urine bicarb is at 19. Creatinine is improved is down to 2.0. No chest pain. No altered mentation. No other complaints otherwise for now. On 08/15/2018 I'm seeing this patient for a follow-up. Doing well. No complaints been no respiratory distress. The diarrhea subsided and the patient is producing loose bowel movements while being on IV Zosyn. Still on IV Lasix. Producing good urine output and the patient is a negative fluid balance. Chest x-ray still showing a left-sided pleural effusion in addition to four- vessel congestion/edema and the patient will continue on diuretics follow 24 hours. No fever or chills. No pressors. Renal function continues to improve. IV heparin was discontinued. No signs of any acute bleeding and hemoglobin is stable for now. Cardiology is on the case. On 08/16/2018, patient was seen in the ICU, continues to do well, remains on diuretics and antibiotics, continues to have a small left pleural effusion, may or may not require thoracentesis. I believe the effusion is secondary to systolic congestive heart failure, patient has an ejection fraction of 35%. May benefit in the meantime with using higher dose of diuretics. Labs were reviewed WBC count is 11.9 hemoglobin is 7.7, BUN is 25 creatinine is 1.37 improving over the last few days. On 08/17/2018, patient was reevaluated again in the ICU, doing better, breathing easier, chest x-ray is showing improvement in his underlying congestive changes. No cough no wheezing no fever no chills no hemoptysis and no chest pain. Patient is presently on overflow he will be going to [facility] sometime today. Labs showed WBC count of 14.2 hemoglobin is 8 electrolytes are normal BUN is 24 creatinine is 1.31. Objective - Vital Signs Vital signs: Vital Signs Temp 97.5 F L 08/17/18 08:00 Pulse 74 08/17/18 11:23 Resp 16 08/17/18 08:00 BP 126/66 08/17/18 08:00 Pulse Ox 94 L 08/17/18 08:00 Intake & Output 08/16/18 08/17/18 08/17/18 18:59 06:59 18:59 Intake Total 3 278 Output Total 352 981 Balance -516 -690 Weight 109.5 kg 109.5 kg Intake: IV 3 278 Piperacillin-Tazobactam 3 100 .375 gm In Sodium Chloride 0.9% 100 ml @ 25 mls/hr IVPB Q8HR [facility] Rx# :[id number] Sodium Chloride 0.9% 1, 130 000 ml @ 10 mls/hr IV . Q24H [facility] Rx#:[id number] pressure bags 3 48 Output: Urine 350 980 Stool 2 1 Other: Voiding Method Indwelling Catheter Indwelling Catheter # Voids 1 ABP, PAP, CO, CI - Last Documented Arterial Blood Pressure 101/51 - Exam Physical Exam: Revealed a 73-year-old white male in no distress. Head: Atraumatic, normocephalic. HEENT:[Neck is supple.] [No neck masses.] [No thyromegaly.] [No JVD.] Chest: [Diminished breath sounds at the later bases with left basilar dullness. ] Symmetrical chest expansion, no chest wall tenderness. Cardiac Exam: [Normal S1 and S2, no S3 gallop, no murmur.] Abdomen: [Soft, nontender, no megaly, no rebound, no guarding, normal bowel sounds.] Extremities: [No clubbing, no edema, no cyanosis.] Neurological Exam: [No focal neurologic deficit. Psychiatric: Normal mood affect and mental status examination. Skin: No rashes.] - Labs CBC & Chem 7: 08/17/18 05:06 08/17/18 05:06 Labs: Abnormal Lab Results - Last 24 Hours (Table) 08/16/18 08/16/18 08/16/18 Range/Units 12:23 16:54 21:23 WBC (3.8-10.6) k/uL RBC (4.30-5.90) m/uL Hgb (13.0-17.5) gm/dL Hct (39.0-53.0) % RDW (11.5-15.5) % BUN (9-20) mg/dL Creatinine (0.66-1.25) mg/dL Glucose (74-99) mg/dL POC Glucose (mg/dL) 233 H 226 H 208 H (75-99) mg/dL Calcium (8.4-10.2) mg/dL Phosphorus (2.5-4.5) mg/dL Magnesium (1.6-2.3) mg/dL 08/17/18 08/17/18 08/17/18 Range/Units 05:06 05:06 07:28 WBC 14.2 H (3.8-10.6) k/uL RBC 2.84 L (4.30-5.90) m/uL Hgb 8.0 L (13.0-17.5) gm/dL Hct 25.1 L (39.0-53.0) % RDW 19.8 H (11.5-15.5) % BUN 24 H (9-20) mg/dL Creatinine 1.31 H (0.66-1.25) mg/dL Glucose 152 H (74-99) mg/dL POC Glucose (mg/dL) 179 H (75-99) mg/dL Calcium 8.1 L (8.4-10.2) mg/dL Phosphorus 2.2 L (2.5-4.5) mg/dL Magnesium 1.4 L (1.6-2.3) mg/dL Microbiology - Last 24 Hours (Table) 08/12/18 05:00 Blood Culture - Preliminary Blood No Growth after 120 hours 08/12/18 04:50 Blood Culture - Preliminary Blood No Growth after 120 hours Assessment and Plan Assessment: Impression: 1 acute non-ST segment elevation myocardial infarction, status post stenting of the circumflex. 2 acute cardiogenic shock and LV dysfunction requiring insertion of intra- aortic balloon pump. 3 acute systolic congestive heart failure with left pleural effusion, cardiac in nature unless for otherwise. 4 impaired the left ventricular function ejection fraction of 35%. 5 multiple comorbidities including COPD, diabetes type 2, chronic smoking and history of ITP. Recommendation: Continue present treatment plan, mostly diuretics, incentive spirometry, bronchodilators, transferred to a monitor bed on [facility] today. Time with Patient: Less than 30
[2018-08-17 12:51] LABS: Glucose,Whole Blood 212 mg/dL (75-99)
--- NOTE | 2018-08-17 13:25 | PN ---
PROGRESS NOTE This patient's medical records reviewed. This patient is status post myocardial infarction, cardiogenic shock. Patient is doing much better. He is being ambulatory in the hallway. No respiratory distress is noted. Denies any orthopnea or PND. The patient's BUN is 24, creatinine is 1.31, hemoglobin is 8 grams. The patient's lab tests are reviewed. Patient has a previously low serum iron and iron saturation was low. First and second heart sounds are normal. Lungs are clinically clear to auscultation and percussion. Abdomen is soft. ASSESSMENT AND PLAN: We will add lisinopril 2.5 mg daily. Continue Coreg and we will give him iron infusion 200 mg IV. MMODL / IJN: [id number] /
[2018-08-17] MEDS: SODIUM CHLORIDE 0.9% 1,000 ML IV SCH (16:01)
[2018-08-17 17:17] LABS: Glucose,Whole Blood 220 mg/dL (75-99)
[2018-08-17 20:43] LABS: Glucose,Whole Blood 206 mg/dL (75-99)
--- NOTE | 2018-08-17 21:49 | PN ---
PROGRESS NOTE Patient is seen for followup for acute kidney injury, mainly ATN. Serum creatinine had peaked to about 2.39 mg/dL. It is down to 1.3. The patient is sitting up in bed. He is comfortable. He denies any significant complaints. He is currently having a nosebleed. The patient was seen this morning. Blood pressure this morning was 126/66, heart rate of 74 per minute. He is afebrile. Patient appears fairly euvolemic. His abdomen is soft and nontender. He does not have significant edema in his lower extremities. LABS: Show sodium 139, potassium 4.0, BUN 24, serum creatinine 1.3. Phosphorus 2.2, magnesium 1.4. ASSESSMENT: 1. Acute kidney injury, acute tubular necrosis, nonoliguric, currently significantly improved. 2. Non ST elevation myocardial infarction, status post cardiac catheterization with stent placement in the proximal circumflex and status post intraaortic balloon pump. 3. Chronic kidney disease stage 3 with baseline creatinine 1.3-1.1 mg/dL secondary to nephrosclerosis. 4. Hypotension, mainly cardiorenal currently off of Levophed. 5. Hypomagnesemia, being replaced. 6. Iron deficiency maintained on IV iron. PLAN: DC IV iron after today's dose. Continue current dose of Lasix. Repeat labs in a.m. May continue with the BACILIO inhibitors. MMODL / IJN: [id number] /
--- NOTE | 2018-08-18 00:13 | PN ---
PROGRESS NOTE DATE OF SERVICE: 08/17/2018. PRESENTING COMPLAINT: Tired. INTERVAL HISTORY: This patient presented with acute non-ST elevation myocardial infarction with coronary intervention, went into cardiogenic shock. Did have a intra-aortic balloon pump placed that was then taken out. Patient subsequently went into acute renal failure that is actually getting better. The patient had been on pressors that had been taken off. Overall feeling better. Sitting up, tolerating a diet. Has been out of bed. REVIEW OF SYSTEMS: Done for constitutional, cardiovascular, GI, pulmonary; relevant findings as above. CURRENT MEDICATIONS: Reviewed that include: 1. DuoNeb,. 2. Xanax. 3. Lipitor. 4. Aspirin. 5. Coreg. 6. Oral Lasix. 7. Zestril. 8. IV Zosyn. 9. Brilinta. PHYSICAL EXAMINATION: Temperature 97.5 pulse 101, respirations 21, blood pressure 120/66, pulse ox 96 percent on 3 L. GENERAL APPEARANCE: Propped up more comfortable. EYES: Pupils equal. Conjunctivae normal. HEENT: External appearance of ears and nose normal. Oral cavity normal. NECK: JVD unable to assess. Mass not palpable. Respiratory effort increased. LUNGS: Decreased breath sounds. CARDIOVASCULAR: Heart sounds irregular. Minimal edema. ABDOMEN: Soft, nontender. Liver and spleen not palpable. PSYCHIATRY: Alert and oriented x3. Mood and affect normal. INVESTIGATIONS: White count 14.2, hemoglobin 8, potassium 4, BUN 24, creatinine 1.31. Accu-Cheks are noted. ASSESSMENT: 1. Acute non-ST elevation myocardial infarction with stent to the circumflex. 2. Coronary artery with prior stent in April 2018. 3. Automatic implantable cardioverter defibrillator. 4. Idiopathic thrombocytopenic purpura. 5. Colonic diverticulosis, asymptomatic. 6. Primary osteoarthritis of the lower back. 7. Obesity; BMI 33. 8. Acute kidney injury likely acute tubular necrosis, combination of hypertension and contrast nephropathy, continues to improve. 9. Acute metabolic acidosis from renal failure. 10.Hyperkalemia from renal failure. 11.Normocytic anemia cause unknown. 12.Acute congestive heart failure from coronary artery disease and systolic dysfunction, ejection fraction 35% to 40%. 13.Cardiogenic shock status post intra-aortic balloon pump and pressors, all discontinued. 14.Possible pneumonia for which patient is on antibiotics. PLAN: Continue current medication and treatment plan. Care was discussed with the patient. The patient was also seen by Cardiology and Pulmonary. Cardiology did add lisinopril. HAILEL / TERRYN: [id number] /
[2018-08-18] MEDS: ALPRAZolam 0.5 MG TAB PO PRN ×2 (02:53→11:15)
[2018-08-18] MEDS: INSULIN ASPART 100 UNIT/ML 1 ML 10 ML VIAL SQ SCH ×5 (04:25→21:34)
[2018-08-18] MEDS: CARVEDILOL 3.125 MG TAB PO SCH ×2 (06:41→17:45)
[2018-08-18 06:55] LABS: Anisocytosis Moderate; HCT 24.6 % (39.0-53.0); HGB 7.7 gm/dL (13.0-17.5); Hypochromasia Moderate; MCH 27.8 pg (25.0-35.0); MCHC 31.2 g/dL (31.0-37.0); MCV 89.2 fL (80.0-100.0); Platelet Count 258 k/uL (150-450); Poikilocytosis Slight; RBC 2.75 m/uL (4.30-5.90); RDW 20.5 % (11.5-15.5); WBC 15.8 k/uL (3.8-10.6)
[2018-08-18 07:00] LABS: Glucose,Whole Blood 169 mg/dL (75-99)
[2018-08-18 07:26] LABS: Calcium 8.4 mg/dL (8.4-10.2); Magnesium 1.4 mg/dL (1.6-2.3); Potassium 4.2 mmol/L (3.5-5.1)
[2018-08-18] MEDS: FUROSEMIDE 40 MG TAB PO SCH ×2 (08:19→15:23)
[2018-08-18] MEDS: ASPIRIN 81 MG PO SCH (08:19)
[2018-08-18] MEDS: SODIUM BICARBONATE TAB 650 MG TAB PO SCH ×2 (08:19→21:34)
[2018-08-18] MEDS: TICAGRELOR 90 MG TAB PO SCH ×2 (08:19→21:34)
[2018-08-18] MEDS: ATORVASTATIN 40 MG TAB PO SCH (08:19)
[2018-08-18] MEDS: PANTOPRAZOLE 40 MG/10 ML VIAL IV SCH (08:19)
[2018-08-18] MEDS: HEPARIN SODIUM,PORCINE 5,000 UNIT/ML 1 ML VIAL SQ SCH ×3 (08:19→21:34)
[2018-08-18] MEDS: LISINOPRIL 2.5 MG TAB PO SCH (08:19)
[2018-08-18] MEDS: ELTROMBOPAG PO SCH (08:26)
[2018-08-18] MEDS: IPRATROPIUM-ALBUTEROL 3 ML NEB INHALATION SCH ×2 (08:56→20:49)
[2018-08-18] MEDS: PIPERACILLIN-TAZOBACTAM 3.375 GM in SODIUM CHLORIDE 0.9% 100 ML IVPB SCH (09:11)
[2018-08-18] MEDS: MAGNESIUM SULFATE-D5W PMX 1 GM in DEXTROSE/WATER 1 100ML.BAG IVPB SCH ×3 (11:15→13:09)
[2018-08-18 11:21] LABS: Glucose,Whole Blood 230 mg/dL (75-99)
--- NOTE | 2018-08-18 14:43 | P.PN ---
Subjective Progress Note Date: 08/18/18 Principal diagnosis: Acute non-ST segment elevated ME, cardiogenic shock On 08/12/2018 the patient is being seen for a follow-up. The patient is known to have coronary artery disease and he is post acute non-ST segment elevation myocardial infarction. He has severe ischemic artery myopathy and is post AICD placement. The patient was taken to [facility] yesterday and underwent stenting of the circumflex, and intra-aortic balloon pump was inserted and following that the patient was transferred to the intensive care unit. Initially the patient was on a intra-aortic balloon pump with a one-to-one ratio augmentation. The patient was also on a combination of pressors including dopamine 2.5 g per KG per minute, norepinephrine infusion running at 12 g per KG per minute and dobutamine. A triple lumen catheter inserted in the CVP was above 12 consistently. The patient was started on diuretics and the patient produced adequate amount of urine output over the past when he 4 hours and currently the patient negative fluid balance. His morning the patient is on 6 L of oxygen by nasal cannula. Intra-aortic balloon pump is still maintained. The augmented blood pressure was 70. The patient is still on the same pressor doses. He was having some increased cough and congestion and some sputum production without any fever. White cell count was noted to be high this morning and based on that the patient was started on empiric antibiotic coverage with IV Zosyn . It was noted the patient's hemoglobin dropped down to 7.7. The patient was having blood wasn't from the puncture sites including the intra-aortic balloon puncture site and the right IJ triple-lumen catheter puncture site. The bleeding was controlled. IV heparin was resumed. It's likely that hemoglobin drop was secondary to the blood loss from the skin surface. On today's evaluation, he is alert and awake. He denies having any chest pain. No significant shortness of breath. Chest x-ray from this morning shows bilateral consolidation pleural effusions consistent with CHF. The net fluid balance over the past 24 hours is +946 mL and the patient remains in a positive fluid balance of 1.1 L for today. Otherwise, no other significant events. Adequate pulses in all 4 extremities. The patient is seen today 08/13/2018 in follow-up in the intensive care unit. He is currently awake and alert in no acute distress. He denies any chest pain , palpitations lightheadedness or dizziness. He remains in atrial fibrillation with occasional ventricular pacing. He remains on norepinephrine at 12 mcg/m. His was a size 22 mcg/m last evening. He is on dobutamine at 2.5 mcg/kg/m. Dopamine has been discontinued. He remains with the intra-aortic balloon pump maintaining augmented pressures of 65. He is on a 1:3 ratio this morning. He denies any worsening shortness of breath, cough or congestion. He is maintaining O2 saturations in the mid 90s on 3 L/m per nasal cannula. Maintaining mean arterial pressures in the 60s. CVP 19. White count 31.9. Hemoglobin 7.6. INR 1.4. Basic metabolic panel pending. Creatinine He is having issues with diarrhea. C. difficile toxin screen was negative 2. Blood culture reveals no growth. Urine and sputum cultures are pending. Current temp 100.4 axillary. He remains on Zosyn. On 08/14/2018, the patient is sitting up on a chair. The intra-aortic balloon pump was removed yesterday. Subsequently the patient was gradually weaned off the levo fed and was discontinued yesterday and earlier this morning the dobutamine was also discontinued. The patient is producing good urine output. Renal function is improving. The patient is on Lasix. Fluid balance is -1.3 L 4 today. The patient's family chest pain. The triple-lumen catheter site is clean and dry and intact. The intra-aortic balloon puncture site is also clean. Hemoglobin is stable at 7.4. The patient continues to have a congested cough. The white cell count is dropped down to 23.3 and the patient is currently on empiric antibiotic coverage with IV Zosyn. He is still having some liquidy stool in the stool for C. diff on 2 separate occasions have been negative. Chest x-ray still showing a component of pulmonary vessel congestion/ CHF and the patient is on IV Lasix 40 mg every 12 hours. Note that, the patient is also on a combination of aspirin and Plavix. The patient remains on IV heparin. Oral bicarb was also added regarding the non-anion gap metabolic acidosis. The patient's urine bicarb is at 19. Creatinine is improved is down to 2.0. No chest pain. No altered mentation. No other complaints otherwise for now. On 08/15/2018 I'm seeing this patient for a follow-up. Doing well. No complaints been no respiratory distress. The diarrhea subsided and the patient is producing loose bowel movements while being on IV Zosyn. Still on IV Lasix. Producing good urine output and the patient is a negative fluid balance. Chest x-ray still showing a left-sided pleural effusion in addition to four- vessel congestion/edema and the patient will continue on diuretics follow 24 hours. No fever or chills. No pressors. Renal function continues to improve. IV heparin was discontinued. No signs of any acute bleeding and hemoglobin is stable for now. Cardiology is on the case. On 08/16/2018, patient was seen in the ICU, continues to do well, remains on diuretics and antibiotics, continues to have a small left pleural effusion, may or may not require thoracentesis. I believe the effusion is secondary to systolic congestive heart failure, patient has an ejection fraction of 35%. May benefit in the meantime with using higher dose of diuretics. Labs were reviewed WBC count is 11.9 hemoglobin is 7.7, BUN is 25 creatinine is 1.37 improving over the last few days. On 08/17/2018, patient was reevaluated again in the ICU, doing better, breathing easier, chest x-ray is showing improvement in his underlying congestive changes. No cough no wheezing no fever no chills no hemoptysis and no chest pain. Patient is presently on overflow he will be going to [facility] sometime today. Labs showed WBC count of 14.2 hemoglobin is 8 electrolytes are normal BUN is 24 creatinine is 1.31. On 08/18/2018 patient seen in follow-up on [facility] care unit, he is resting comfortably in bed, in no acute distress, denies any chest pain or worsening dyspnea, currently on 2 L per nasal cannula a pulse ox of 96%, lung sounds are diminished, with a few rales at the bases, chest x-ray from yesterday showed better aeration, with residual mildly prominent interstitium and central vascularity. His labs have been reviewed, WBC is 15.8, hemoglobin is 7.7. No fever, no chills, no complaints of chest pain, or dyspnea. Patient has been ambulating to the bathroom, tolerating activity well. He is on oral diuretics, he is on breathing treatments and empiric antibiotics, cultures have been negative, we will discontinue the Zosyn. Objective - Vital Signs Vital signs: Vital Signs Temp 98.1 F 08/18/18 12:00 Pulse 77 08/18/18 12:00 Resp 18 08/18/18 12:00 BP 100/52 08/18/18 12:00 Pulse Ox 96 08/18/18 12:00 Intake & Output 08/17/18 08/18/18 08/18/18 18:59 06:59 18:59 Intake Total 306 340 370 Output Total 1210 925 Balance -904 -585 370 Weight 109.5 kg 110 kg Intake: IV 206 100 130 Piperacillin-Tazobactam 3 200 100 100 .375 gm In Sodium Chloride 0.9% 100 ml @ 25 mls/hr IVPB Q8HR [facility] Rx# :[id number] Sodium Chloride 0.9% 1, 30 000 ml @ 10 mls/hr IV . Q24H [facility] Rx#:[id number] pressure bags 6 Intake, IV Titration 100 Amount Magnesium Sulfate-D5w Pmx 100 1 gm In Dextrose/Water 1 100ml.bag @ 100 mls/hr IVPB Q1H JESS Rx#: [id number] Oral 240 240 Output: Urine 1210 925 Other: Voiding Method Indwelling Catheter Indwelling Catheter Indwelling Catheter # Bowel Movements 1 ABP, PAP, CO, CI - Last Documented Arterial Blood Pressure 101/51 - Exam Physical Exam: Revealed a 73-year-old white male in no distress. Head: Atraumatic, normocephalic. HEENT:[Neck is supple.] [No neck masses.] [No thyromegaly.] [No JVD.] Chest: [Symmetrical chest expansion, no chest wall tenderness. Diminished at the bases, with some limited crackles Cardiac Exam: [Normal S1 and S2, no S3 gallop, no murmur.] Abdomen: [Soft, nontender, no megaly, no rebound, no guarding, normal bowel sounds.] Extremities: [No clubbing, no edema, no cyanosis.] Neurological Exam: [No focal neurologic deficit. Psychiatric: Normal mood affect and mental status examination. Skin: No rashes.] - Labs CBC & Chem 7: 08/18/18 06:18 08/18/18 06:18 Labs: Abnormal Lab Results - Last 24 Hours (Table) 08/17/18 08/17/1818 Range/Units 17:03 20:32 06:18 WBC 15.8 H (3.8-10.6) k/uL RBC 2.75 L (4.30-5.90) m/uL Hgb 7.7 L (13.0-17.5) gm/dL Hct 24.6 L (39.0-53.0) % RDW 20.5 H (11.5-15.5) % Creatinine (0.66-1.25) mg/dL Glucose (74-99) mg/dL POC Glucose (mg/dL) 220 H 206 H (75-99) mg/dL Magnesium (1.6-2.3) mg/dL 08/18/18 08/18/18 08/18/18 Range/Units 06:18 06:28 11:15 WBC (3.8-10.6) k/uL RBC (4.30-5.90) m/uL Hgb (13.0-17.5) gm/dL Hct (39.0-53.0) % RDW (11.5-15.5) % Creatinine 1.38 H (0.66-1.25) mg/dL Glucose 149 H (74-99) mg/dL POC Glucose (mg/dL) 169 H 230 H (75-99) mg/dL Magnesium 1.4 L (1.6-2.3) mg/dL Microbiology - Last 24 Hours (Table) 08/12/18 05:00 Blood Culture - Final Blood No Growth after 144 hours 08/12/18 04:50 Blood Culture - Final Blood No Growth after 144 hours Assessment and Plan Plan: Assessment: #1. Acute non-ST elevated ME, status post stenting of the circumflex #2. acute cardiogenic shock and LV dysfunction requiring insertion of intra- aortic balloon pump. #3. Coronary artery disease with previous stenting of the LAD, and most recently of the circumflex in April 2018 #4. Ischemic cardiomyopathy status post AICD implantation #5. Diabetes mellitus type 2 #6. Hyperlipidemia #7. Acute on chronic renal failure, likely related to nausea vomiting diarrhea and dehydration #8. Nicotine dependence, currently in remission #9. History of ITP Plan: Continue nebulized bronchodilators on an as-needed basis, patient denies any dyspnea or chest pain, hemodynamically stable. Increase activity as tolerated. No fever or chills, continue with oral diuretics, we'll discontinue the IV Zosyn, cultures remain negative. I performed a history & physical examination of the patient and discussed their management with my nurse practitioner, Kelsi Freeman. I reviewed the nurse practitioner's note and agree with the documented findings and plan of care. Lung sounds are positive for diminished breath sounds, with some crackles at the bases. The findings and the impression was discussed with the patient. I attest to the documentation by the nurse practitioner. Time with Patient: Less than 30
--- NOTE | 2018-08-18 15:05 | PN ---
PROGRESS NOTE This patient is status post acute myocardial infarction and stent to the circumflex coronary artery complicated by cardiogenic shock. The patient was initially on intra- aortic balloon pump for 2-3 days. Patient has improved considerably. He is lying comfortably in the bed. The only thing he is feeling tired. Blood pressure is 100/52 mmHg. First and second heart sounds are heard. Lungs are clear to auscultation and percussion. Patient's electrolytes are normal. The creatinine is 1.38, hemoglobin is 7.7. Patient has received 3 doses of IV iron. We will continue the current medications. The patient can be gradually ambulated and may need subacute rehab. MMODL / IJN: [id number] /
[2018-08-18] MEDS: ALPRAZolam 0.25 MG TAB PO PRN (15:23)
[2018-08-18] MEDS: SODIUM CHLORIDE 0.9% 1,000 ML IV SCH (15:24)
[2018-08-18 16:45] LABS: Glucose,Whole Blood 255 mg/dL (75-99)
[2018-08-18 16:48] LABS: Glucose,Whole Blood 209 mg/dL (75-99)
--- NOTE | 2018-08-18 17:29 | PN ---
PROGRESS NOTE Patient is seen for followup for acute kidney injury. His renal function has improved with creatinine staying at about 1.3 mg/dL for the last 3 days. Patient has been transferred out of the ICU. He has had good urine output. He continues with a Rehman catheter. He had nosebleed yesterday which has now resolved. Kuqpzo-[id number]-[id number] urine output documented at 2.1 L. Patient is maintained on p.o. Lasix at 40 mg b.i.d. He is also on a small dose of lisinopril. On examination today, blood pressure this morning was 113/53, heart rate of 60 per minute. Patient is afebrile. EXAMINATION OF THE HEART: S1, S2. EXAMINATION OF LUNGS: Bilateral breath sounds are heard. ABDOMEN: Soft, non-tender. Examination of lower extremities shows no trace edema bilaterally. [employer] exam is grossly intact. Labs show sodium 140, potassium 4.2, chloride 103, BUN 20, serum creatinine 1.38, hemoglobin 7.7 g/dL. ASSESSMENT: 1. Acute kidney injury, acute tubular necrosis, nonoliguric, currently improved. Renal function is staying stable for the last 2 to 3 days with creatinine at 1.3. Continue with current dose of oral Lasix. 2. Hypomagnesemia from diuretics. Will replace. 3. Wjt-FN-wsmcdaepl myocardial infarction, status post cardiac catheterization with coronary stent placement and need for intra-aortic balloon pump. 4. Chronic kidney disease, stage III, with baseline creatinine 1.1 to 1.3 secondary to nephrosclerosis. 5. Hypotension, mainly cardiorenal, currently off of Levophed and resolved. 6. Hypomagnesemia, being replaced. 7. Iron deficiency, status post IV iron. PLAN: Continue current dose of Lasix. We can discontinue the Rehman catheter and maintain patient on voiding trials. Continue low-dose BACILIO inhibitors and repeat labs. MMODL / IJN: [id number] /
--- NOTE | 2018-08-18 20:32 | PN ---
PROGRESS NOTE DATE OF SERVICE: 08/18/2018 PRESENTING COMPLAINT: Tired. INTERVAL HISTORY: This patient presented with acute ckl-VL-jtassxgb myocardial infarction with coronary intervention, went into cardiogenic shock. The patient is status post intra-aortic balloon pump and pressors. Also patient has been in acute renal failure that is getting better. Breathing is getting better. Did tolerate some diet. Did walk today. Moved out of the ICU onto the cardiology floor. REVIEW OF SYSTEMS: Done for constitutional, cardiovascular, GI, pulmonary; relevant findings as above. CURRENT MEDICATIONS: Reviewed. They include p.o. Lasix. PHYSICAL EXAMINATION: Temperature 98, pulse 70, respiration 18, blood pressure 98/50, pulse ox 97% on 2 L. GENERAL APPEARANCE: Lying in bed, comfortable. EYES: Pupils equal. Conjunctivae normal. HEENT: External appearance of nose and ears normal. Oral cavity normal. NECK: JVD unable to assess. Mass not palpable. RESPIRATORY: Effort normal. LUNGS: Decreased breath sounds. CARDIOVASCULAR: First and second sounds normal. No edema. ABDOMEN: Soft, non-tender. Liver and spleen not palpable. PSYCHIATRY: Awake. Answering questions. INVESTIGATIONS: White count 15.8, hemoglobin 7.7, potassium 4.2, BUN 20, creatinine 1.38. Accu-Cheks are noted. ASSESSMENT: 1. Acute lso-MV-yxiqsnigy myocardial infarction with stent to the circumflex. 2. Coronary artery disease with prior stent in April of 2018. 3. Automated implantable cardioverter defibrillator. 4. Idiopathic thrombocytopenic purpura. 5. Colonic diverticulosis, asymptomatic. 6. Primary osteoarthritis in the lower back. 7. Obesity; body mass index 33. 8. Acute kidney injury, likely acute tubular necrosis, combination of hypotension and contrast nephropathy. Continues to improve. 9. Acute metabolic acidosis from renal failure. 10.Hyperkalemia from renal failure, improved. 11.Normocytic anemia; cause unknown. 12.Acute congestive heart failure from coronary artery disease with systolic dysfunction, ejection fraction 35% to 40%. 13.Cardiogenic shock, status post intra-aortic balloon pump and pressors, all discontinued. 14.Possible pneumonia, for which patient has been on antibiotics. PLAN: Overall patient continues to do much better. Antibiotics now have been discontinued. Will consult Dr. Romo for possible inpatient rehab. Patient was seen by PT/OT. MMODL / IJN: [id number] /
[2018-08-18 21:19] LABS: Glucose,Whole Blood 221 mg/dL (75-99)
[2018-08-19] MEDS: ALPRAZolam 0.5 MG TAB PO PRN (00:01)
[2018-08-19 05:31] LABS: Glucose,Whole Blood 161 mg/dL (75-99)
[2018-08-19] MEDS: INSULIN ASPART 100 UNIT/ML 1 ML 10 ML VIAL SQ SCH ×4 (06:26→19:59)
[2018-08-19] MEDS: CARVEDILOL 3.125 MG TAB PO SCH ×2 (06:26→17:33)
--- NOTE | 2018-08-19 07:35 | XR ---
EXAMINATION TYPE: XR chest 1V portable DATE OF EXAM: 08/19/2018 HISTORY: Shortness of breath. COMPARISON: 08/17/2018 TECHNIQUE: Single view of the chest is submitted. FINDINGS: Demonstrated are scattered senescent parenchymal change. Persistent cardiomegaly and pulmonary venous congestion slightly improved from prior examination. Odalis pect small left-sided effusion. Hilar and mediastinal structures are within normal limits. Degenerative changes are seen of the dorsal spine. IMPRESSION: 1. Persistent cardiomegaly and pulmonary venous congestion slightly improved from prior examination. Suspect small left-sided effusion.
[2018-08-19] MEDS: IPRATROPIUM-ALBUTEROL 3 ML NEB INHALATION SCH ×2 (08:34→21:05)
--- NOTE | 2018-08-19 09:54 | PN ---
PROGRESS NOTE Patient is seen for followup for acute kidney injury. He is currently laying in bed. He is sleeping, easily arousable, he is not in any acute distress. Patient has had good urine output. His creatinine is down to 1.3 mg/dL as of yesterday. EXAMINATION: This morning, blood pressure 140/62, heart rate of 70 per minute. He is afebrile. Examination of the heart S1, S2. Examination of the lungs bilateral breath sounds are heard. Abdomen is soft, nontender. Examination of lower extremities shows trace edema bilaterally. D[employer] COUNSELOR exam is grossly intact. LABS: Not available from today. ASSESSMENT: 1. Acute kidney injury, acute tubular necrosis, nonoliguric, currently significantly improved. 2. Status post non ST elevation myocardial infarction status post cardiac cath and coronary stent placement with intraaortic balloon pump currently removed. 3. Chronic kidney disease stage 3 with baseline creatinine about 1.1-1.3 secondary to nephrosclerosis. 4. Hypomagnesemia , status post replacement. 5. Hypotension, initially mainly cardiorenal status post Levophed, now resolved. 6. Iron deficiency status post IV iron. PLAN: Continue current dose of Lasix. Encourage increased oral intake. MMODL / IJN: [id number] /
[2018-08-19] MEDS: TICAGRELOR 90 MG TAB PO SCH ×2 (10:45→19:54)
[2018-08-19] MEDS: ATORVASTATIN 40 MG TAB PO SCH (10:45)
[2018-08-19] MEDS: LISINOPRIL 2.5 MG TAB PO SCH (10:45)
[2018-08-19] MEDS: SODIUM BICARBONATE TAB 650 MG TAB PO SCH ×2 (10:45→19:54)
[2018-08-19] MEDS: PANTOPRAZOLE 40 MG/10 ML VIAL IV SCH (10:46)
[2018-08-19] MEDS: HEPARIN SODIUM,PORCINE 5,000 UNIT/ML 1 ML VIAL SQ SCH ×2 (10:46→17:33)
[2018-08-19] MEDS: FUROSEMIDE 40 MG TAB PO SCH ×2 (10:46→17:33)
[2018-08-19] MEDS: ASPIRIN 81 MG PO SCH (10:46)
[2018-08-19] MEDS: ELTROMBOPAG PO SCH (10:47)
[2018-08-19 11:12] LABS: Glucose,Whole Blood 182 mg/dL (75-99)
--- NOTE | 2018-08-19 13:18 | PN ---
PROGRESS NOTE HISTORY: Mr. Escudero is a 73-year-old male with known history of severe cardiomyopathy who presented with acute myocardial infarction, cardiogenic shock, underwent cardiac catheterization, coronary angioplasty and stenting. Initially had an intra-aortic balloon pump. He is feeling better today. His breathing is better. He denies any symptoms of chest pain, although he feels congested at times. His echocardiogram initially showed an ejection fraction of 35% to 40% He continues to be at this time on aspirin 81 mg daily Lipitor 4 mg daily, Coreg 3.125 mg twice a day, Lasix 40 mg twice a day, lisinopril 2.5 mg daily and Brilinta 90 mg twice a day. PHYSICAL EXAMINATION: Blood pressure 105/60 with a heart in 60 lungs no wheezes appreciated. Heart, regular rate and rhythm. S1, S2. No S3. No gallop appreciated. Abdomen is soft, nontender. Extremities with no significant edema. LAB DATA: Lab data revealed cardiomegaly with pulmonary congestion, improving. His magnesium is 1.7, BUN creatinine of 21 and 0.38, hemoglobin of 7.7. IMPRESSION: 1. Status post myocardial infarction, status post stenting. 2. Severe ischemic cardiomyopathy. 3. Renal failure, improving. 4. Hyperlipidemia. RECOMMENDATIONS: From the cardiac standpoint, I will continue on the present regimen. I will add to his regimen Aldactone 25 mg twice a day. Follow his renal function closely. Depending on his progress, further recommendation will be made. MMSHOLAL / TERRYN: [id number] /
[2018-08-19 16:17] LABS: Glucose,Whole Blood 230 mg/dL (75-99)
--- NOTE | 2018-08-19 17:22 | P.PN ---
Subjective this is a pleasant 73 years old male with past medical history of coronary artery disease,status post cardiac cath and stenting history of prostate cancer.who presents with lower chest and epigastric pain. Patient was found to have non-STEMI and acute congestive heart failure that needed pump therapy. Patient has been evaluated by cardiology and pulmonary team. Cardiology team added Aldactone today. patient still have some cough with greenish phlegm that bothering him and he was asking something to lose his secretions. Mucinex is been added for a few days. Patient was complaining from chest pain on admission , today is 1-2/10in severity this morning however small resolved now, patient states its similar to the chest pain he came in with the emergency room. Patient also complains from bilateral leg swelling.WBC 15.8 K, hemoglobin 7.7.Creatinine looks his stable at 1.3.magnesium 1.4. Glucose is ranging between 169-255.urine analysis was suggestive for infection.however urine analysis was negative with showing no growth. Objective - Vital Signs Vital signs: Vital Signs Temp 97.4 F L 08/19/18 11:50 Pulse 63 08/19/18 11:50 Resp 18 08/19/18 11:50 BP 105/56 08/19/18 11:50 Pulse Ox 96 08/19/18 11:50 Intake & Output 08/18/18 08/19/18 08/19/18 18:59 06:59 18:59 Intake Total 935 222 Output Total 776 701 Balance 135 -294 -606 Weight 110 kg Intake: IV 215 Piperacillin-Tazobactam 3 125 .375 gm In Sodium Chloride 0.9% 100 ml @ 25 mls/hr IVPB Q8HR [facility] Rx# :[id number] Sodium Chloride 0.9% 1, 90 000 ml @ 10 mls/hr IV . Q24H [facility] Rx#:[id number] Oral 720 222 Output: Urine 775 700 Stool 1 1 Other: Voiding Method Indwelling Catheter Indwelling Catheter Urinal ABP, PAP, CO, CI - Last Documented Arterial Blood Pressure 101/51 - Exam GENERAL: The patient is alert and oriented x3, not in any acute distress. Well developed, well nourished. HEENT: Pupils are round and equally reacting to light. EOMI. No scleral icterus. No conjunctival pallor. Normocephalic, atraumatic. No pharyngeal erythema. No thyromegaly. CARDIOVASCULAR: S1 and S2 present. No murmurs, rubs, or gallops. -PULMONARY: Chest is clear to auscultation, bilateral scattered wheezing within a few crackles. ABDOMEN: Soft, nontender, nondistended, normoactive bowel sounds. No palpable organomegaly. MUSCULOSKELETAL: No joint swelling or deformity. EXTREMITIES: No cyanosis, clubbing, or pedal edema. NEUROLOGICAL: Gross neurological examination did not reveal any focal deficits. SKIN: No rashes. - Labs CBC & Chem 7: 08/18/18 06:18 08/18/18 06:18 Labs: Abnormal Lab Results - Last 24 Hours (Table) 08/18/18 08/19/18 08/19/18 Range/Units 20:56 05:30 11:10 POC Glucose (mg/dL) 221 H 161 H 182 H (75-99) mg/dL 08/19/18 Range/Units 16:16 POC Glucose (mg/dL) 230 H (75-99) mg/dL Assessment and Plan Assessment: none STEMI Acute cardiogenic shock status post intra-aortic balloon pump coronary artery disease, status post stenting. Patient on aspirin and Brilinta acute systolic heart failure Hyperlipidemia Hypertension Plan: this is a pleasant 73 years old male who presents with non-STEMI and cardiogenic shock. Cardiology and pulmonary team are following the case. Continue with diuretics and dual antiplatelet therapy.Labs and medication were reviewed.. Continue same treatment. Continue with symptomatic treatment. Resume home medication. Monitor lytes and vitals. DVT and GI prophylaxis. Further recommendations of the clinical course of the patient DVT prophylaxis: Subcutaneous heparin GI prophylaxis: Protonix Prognosis is guarded
[2018-08-19] MEDS: SODIUM CHLORIDE 0.9% 1,000 ML IV SCH (17:31)
[2018-08-19] MEDS: guaiFENesin 600 MG TABLET.ER PO SCH (19:54)
[2018-08-19 20:05] LABS: Glucose,Whole Blood 208 mg/dL (75-99)
[2018-08-20] MEDS: HEPARIN SODIUM,PORCINE 5,000 UNIT/ML 1 ML VIAL SQ SCH ×4 (00:17→23:29)
[2018-08-20 06:16] LABS: Glucose,Whole Blood 179 mg/dL (75-99)
[2018-08-20 06:28] LABS: Calcium 8.8 mg/dL (8.4-10.2)
[2018-08-20] MEDS: CARVEDILOL 3.125 MG TAB PO SCH ×2 (06:43→17:06)
[2018-08-20] MEDS: INSULIN ASPART 100 UNIT/ML 1 ML 10 ML VIAL SQ SCH ×4 (06:43→22:16)
--- NOTE | 2018-08-20 07:24 | P.CONS ---
History of Present Illness - Chief Complaint Cardiac debility - History of Present Illness I had the opportunity to see patient for inpatient rehab consultation regard to cardiac debility. He was admitted to [facility] August 10 with shortness of breath and chest pain. Diagnosis of non-STEMI. Seen in consultation by cardiology and pulmonary, doctors Herb Wood and Kassidy. Patient did undergo cardiac mapping. Chest x-rays followed for cardiomegaly and congestion. PT reports minimal assistance functional ability transfers and gait 240 feet with roller walker. OT reports supervision for upper dressing and minimal assistance for lower dressing, bathing, transfers and maximal assistance for toileting. Previous functional history as elicited from patient: 73-year-old right-handed white male who is lives in a first-floor of 2 floor home with daughter. They share cooking, laundry, driving. Patient retired. Describes independent with standing shower and gait without device. History smoking doesn 't smoke currently. Very rare drink. Dr. Juhi Melendez regular doctor. Family history mother with stroke. Review of Systems Review of systems: ENT: Denies sneezes or discharge. Eyes: Denies discharge or photophobia. Cardiac: Denies chest pain or palpitation. Pulmonary: Mild shortness of breath. Gastrointestinal: Denies nausea, emesis, constipation, diarrhea. Genitourinary: Denies discharge or frequency. Musculoskeletal: Denies muscle or bone aches. Neurologic: At least mild generalized weakness. Endocrine: Denies shakes or sweats. Oncology: Denies cancers. Dermatologic: Denies rash, itching, pruritus. ALLERGY/immunology: Denies sneezes, rashes. Past Medical History Past Medical History: Blood Disorder, Coronary Artery Disease (CAD), Cancer, Chest Pain / Angina, Myocardial Infarction (DE), Musculoskeletal Disorder Additional Past Medical History / Comment(s): DDD. Prostate Cancer, last radiation treatment April 15, 2015. ITP, SEES DR CLARKE KYLE, DR MALIK. V- tach. Last Myocardial Infarction Date:: 06/16/2015 History of Any Multi-Drug Resistant Organisms: None Reported Past Surgical History: AICD, Appendectomy, Cholecystectomy, Heart Catheterization With Stent, Pacemaker Additional Past Surgical History / Comment(s): Stent to the LAD 06/16/2015. CARDIOVERSION; AICD 04/26/16, [employer]. Defibrillator placement Past Anesthesia/Blood Transfusion Reactions: No Reported Reaction Date of Last Stent Placement:: 06/16/2015 Type of Cardiac Device: AICD Device Placement Date:: 04/26/16 Past Psychological History: No Psychological Hx Reported Smoking Status: Former smoker Past Alcohol Use History: Rare Additional Past Alcohol Use History / Comment(s): QUIT SMOKING 1974 EST, UNSURE # OF YEARS. Past Drug Use History: None Reported - Past Family History Mother Family Medical History: CVA/TIA, Hypertension Father Family Medical History: No Reported History Medications and Allergies Home Medications Medication Instructions Recorded Confirmed Type Atorvastatin [Lipitor] 40 mg PO DAILY 04/22/16 08/10/18 History Aspirin 81 mg PO DAILY 10/30/17 08/10/18 History Carvedilol [Coreg] 6.25 mg PO BID 10/30/17 08/10/18 History Eltrombopag Olamine [Promacta] 50 mg PO DAILY 10/30/17 08/10/18 History Nitroglycerin Sl Tabs [Nitrostat] 0.4 mg SUBLINGUAL Q5M PRN 10/30/17 08/10/18 History Saxagliptin HCl [Onglyza] 2.5 mg PO DAILY 10/30/17 08/10/18 History Sotalol [Betapace] 80 mg PO BID 10/30/17 08/10/18 History Clopidogrel [Plavix] 75 mg PO DAILY #90 tab 05/01/18 08/10/18 Rx Amoxicillin 875 mg PO Q12H 08/10/18 08/10/18 History HYDROcodone/APAP 7.5-325MG [Enders 1 tab PO TID 08/10/18 08/10/18 History 7.5-325] Losartan [Cozaar] 25 mg PO DAILY 08/10/18 08/10/18 History Ondansetron Odt [Zofran Odt] 4 mg PO Q12HR PRN 08/10/18 08/10/18 History guaiFENesin 200 mg PO Q4H 08/10/18 08/10/18 History Allergies Allergy/AdvReac Type Severity Reaction Status Date / Time No Known Allergies Allergy Verified 08/10/18 20:47 Physical Exam Vitals: Vital Signs Temp Pulse Pulse Resp BP Pulse Ox 08/20/18 05:46 97.5 F L 71 16 107/56 94 L 08/20/18 00:14 98.6 F 73 90/55 95 08/19/18 21:17 70 08/19/18 21:06 70 08/19/18 19:51 97.8 F 70 16 102/56 98 08/19/18 16:00 64 14 120/57 94 L 08/19/18 11:50 97.4 F L 63 16 105/56 96 08/19/18 09:30 97.4 F L 71 18 106/55 95 08/19/18 08:45 66 08/19/18 08:36 70 93 L Intake and Output 08/19/18 08/20/18 08/20/18 22:59 06:59 14:59 Intake Total 480 Output Total 3 2 Balance 477 -2 Intake: Oral 480 Output: Stool 3 2 Other: Voiding Method Urinal Urinal # Voids 2 Weight 110 kg 109.3 kg Skin: Atrophic, intact. Bruises right brachium. General: Overweight build and comfortable appearance. Head: Normocephalic, atraumatic. Eyes: Symmetric. Pupils equal round. Ears: Symmetric. Hearing within normal limits. Mouth: Clear. Neck: Supple. Carotid without bruit. Cardiac: Regular rate and rhythm. Lungs: Clear anteriorly and posteriorly. Abdomen: Soft active nontender. Extremities: Normal tone. Neurological: Mental status: Alert, cooperative, pleasant. Cranial nerves: Symmetric facial tone and trapezius. Motor: Active movement and isolation all 4 limbs. Sensation: Intact throughout. DTRs: Symmetric and equal throughout. Mobility: Minimal assistance for bed mobility. Results CBC & Chem 7: 08/18/18 06:18 08/20/18 05:45 Labs: Abnormal Lab Results - Last 24 Hours (Table) 08/19/18 08/19/18 08/19/18 Range/Units 11:10 16:16 19:54 BUN (9-20) mg/dL Creatinine (0.66-1.25) mg/dL Glucose (74-99) mg/dL POC Glucose (mg/dL) 182 H 230 H 208 H (75-99) mg/dL 08/20/18 08/20/18 Range/Units 05:45 06:15 BUN 22 H (9-20) mg/dL Creatinine 1.26 H (0.66-1.25) mg/dL Glucose 148 H (74-99) mg/dL POC Glucose (mg/dL) 179 H (75-99) mg/dL Assessment and Plan (1) Acute non-ST segment elevation myocardial infarction (STEMI) following previous myocardial infarction Current Visit: Yes Status: Acute Code(s): I22.9 - SUBSEQUENT STEMI OF [facility] SITE Plan: Impression: 1. Medical debility. 2. Non-STEMI. 3. AICD. 4. Coronary disease with history of DE and angina. 5. History of cancer. Comments and plan: PT and OT are ongoing. Safety concerns noted. Have discussed possible inpatient rehab with patient and he seems agreeable if necessary. Note recent hospitalization July 29.
[2018-08-20] MEDS: IPRATROPIUM-ALBUTEROL 3 ML NEB INHALATION SCH ×2 (08:22→19:41)
[2018-08-20] MEDS: PANTOPRAZOLE 40 MG/10 ML VIAL IV SCH (09:24)
[2018-08-20] MEDS: SODIUM BICARBONATE TAB 650 MG TAB PO SCH ×2 (09:24→21:18)
[2018-08-20] MEDS: guaiFENesin 600 MG TABLET.ER PO SCH ×2 (09:24→21:19)
[2018-08-20] MEDS: TICAGRELOR 90 MG TAB PO SCH ×2 (09:24→21:19)
[2018-08-20] MEDS: ATORVASTATIN 40 MG TAB PO SCH (09:24)
[2018-08-20] MEDS: FUROSEMIDE 40 MG TAB PO SCH ×2 (09:25→15:56)
[2018-08-20] MEDS: ASPIRIN 81 MG PO SCH (09:25)
[2018-08-20] MEDS: SPIRONOLACTONE 25 MG TAB PO SCH (09:25)
[2018-08-20] MEDS: LISINOPRIL 2.5 MG TAB PO SCH (09:25)
[2018-08-20] MEDS: ELTROMBOPAG PO SCH (09:25)
[2018-08-20] MEDS: SODIUM CHLORIDE 0.9% 1,000 ML IV SCH (11:45)
--- NOTE | 2018-08-20 11:47 | P.PN ---
Subjective Progress Note Date: 08/20/18 Physical pleasant 73-year-old gentleman with history of severe cardiomyopathy presented with acute ND, cardiogenic shock and underwent cardiac catheterization , coronary angioplasty and stenting. Initially had an intra-aortic balloon pump. Overall, patient is feeling better today. Breathing is stable. He denies any symptoms of chest discomfort. Most recent limited echocardiogram showed ejection fraction 35-40% with basal inferior septal LV wall motion hypokinesis and inferolateral hypokinesis. Vital signs are stable. Objective - Vital Signs Vital signs: Vital Signs Temp 97.9 F 08/20/18 09:21 Pulse 71 08/20/18 09:21 Resp 16 08/20/18 09:21 BP 94/49 08/20/18 09:21 Pulse Ox 91 L 08/20/18 09:21 Intake & Output 08/19/18 08/20/18 08/20/18 18:59 06:59 18:59 Intake Total 702 120 Output Total 702 4 Balance 0 -4 120 Weight 109.3 kg Intake: Oral 702 120 Output: Urine 700 Stool 2 4 Other: Voiding Method Urinal Urinal # Voids 2 1 # Bowel Movements 1 ABP, PAP, CO, CI - Last Documented Arterial Blood Pressure 101/51 - Exam PHYSICAL EXAMINATION: HEENT: Head is atraumatic, normocephalic. Pupils equal, round. Neck is supple. There is no elevated jugular venous pressure. HEART EXAMINATION: Heart sounds regular, S1 and S2 normal. No murmur or gallop heard. CHEST EXAMINATION: Lungs are clear to auscultation and precussion. No chest wall tenderness is noted on palpation or with deep breathing. ABDOMEN: Soft, nontender. . EXTREMITIES: 2+ peripheral pulses with no evidence of peripheral edema and no calf tenderness noted. NEUROLOGIC patient is awake, alert and oriented x3. . - Labs CBC & Chem 7: 08/18/18 06:18 08/20/18 05:45 Labs: Abnormal Lab Results - Last 24 Hours (Table) 08/19/18 08/19/18 08/20/18 Range/Units 16:16 19:54 05:45 BUN 22 H (9-20) mg/dL Creatinine 1.26 H (0.66-1.25) mg/dL Glucose 148 H (74-99) mg/dL POC Glucose (mg/dL) 230 H 208 H (75-99) mg/dL 08/20/18 Range/Units 06:15 BUN (9-20) mg/dL Creatinine (0.66-1.25) mg/dL Glucose (74-99) mg/dL POC Glucose (mg/dL) 179 H (75-99) mg/dL Assessment and Plan Assessment: #1 status post acute ND, status post stenting #2 severe ischemic cardiomyopathy #3 renal failure, improving #4 hyperlipidemia Plan: From cardiac standpoint, medications were reviewed and we will continue the same. Continue to monitor renal function and electrolytes. We will continue to follow the patient for further recommendations accordingly. DESULFURIZER OPERATOR note has been reviewed, I agree with a documented findings and plan of care. Patient was seen and examined.
[2018-08-20 11:54] LABS: Glucose,Whole Blood 154 mg/dL (75-99)
[2018-08-20 12:07] LABS: Appearance,Urine Clear (Clear); Bilirubin,Urine Negative (Negative); Blood,Urine Negative (Negative); Color,Urine Yellow; Glucose,Urine (UA) Negative (Negative); Ketones,Urine Negative (Negative); Leukocyte Esterase,Urine Negative (Negative); Nitrite,Urine Negative (Negative); PH, Urine 5.5 (5.0-8.0); Protein,Urine Negative (Negative); Specific Gravity,Urine 1.012 (1.001-1.035); Urobilinogen,Urine <2.0 mg/dL (<2.0)
--- NOTE | 2018-08-20 12:58 | PN ---
PROGRESS NOTE The patient is seen for followup for acute kidney injury. His renal function has improved significantly with creatinine now at about 1.2 mg/dL. EXAMINATION: Patient is comfortable, awake. He is not in any acute distress. Blood pressure this morning was 107/56, heart rate is 72 per minute. Patient is afebrile. Examination of the heart S1, S2. Examination of the lungs bilateral breath sounds are heard. Abdomen is soft, nontender. Examination of lower extremities shows no significant edema. CLINICAL LABORATORY AIDE exam is grossly intact. LABS: Show sodium 139, potassium 4.0, chloride 104, BUN 22, serum creatinine 1.26. ASSESSMENT: 1. Acute kidney injury, acute tubular necrosis, currently significantly improved. 2. Status post non ST elevation myocardial infarction, status post cardiac cath and coronary stent placement with intra-aortic balloon pump. 3. Chronic kidney disease stage 3 with baseline about 1.1-1.3 mg/dL secondary to nephrosclerosis. PLAN: Continue current dose of Lasix. The patient is stable for discharge from Nephrology standpoint. Follow up labs as outpatient in about 1-2 weeks. MMODL / IJN: [id number] /
--- NOTE | 2018-08-20 15:06 | P.PN ---
Subjective this is a pleasant 73 years old male with past medical history of coronary artery disease,status post cardiac cath and stenting history of prostate cancer.who presents with lower chest and epigastric pain. Patient was found to have non-STEMI and acute congestive heart failure that needed pump therapy. Patient has been evaluated by cardiology and pulmonary team. Cardiology team added Aldactone today. patient still have some cough with greenish phlegm that bothering him and he was asking something to lose his secretions. Mucinex is been added for a few days. Patient was complaining from chest pain on admission , today is 1-2/10in severity this morning however small resolved now, patient states its similar to the chest pain he came in with the emergency room. Patient also complains from bilateral leg swelling.WBC 15.8 K, hemoglobin 7.7.Creatinine looks his stable at 1.3.magnesium 1.4. Glucose is ranging between 169-255.urine analysis was suggestive for infection.however urine analysis was negative with showing no growth. 08/20/2018 Patient still have dyspnea, no chest pain. He has little cough with gustafson phlegm. No abdominal pain no change in urine or bowel habits. No dysuria. No nausea vomiting or fever. Vital signs stable. Creatinine is improving from 1.6 -1.3-1.26 today. Sugar is controlled. Urine analysis is negative. Follow-up LFTs and CBC. Cardiology, and pulmonary R following the patient. His been evaluated by Dr. Romo, for possible subacute rehab to which the patient is agreeable Objective - Vital Signs Vital signs: Vital Signs Temp 97.9 F 08/20/18 09:21 Pulse 71 08/20/18 11:45 Resp 18 08/20/18 11:45 BP 112/56 08/20/18 11:45 Pulse Ox 95 08/20/18 11:45 Intake & Output 08/19/18 08/20/18 08/20/18 18:59 06:59 18:59 Intake Total 702 360 Output Total 702 4 Balance 0 -4 360 Weight 109.3 kg Intake: Oral 702 360 Output: Urine 700 Stool 2 4 Other: Voiding Method Urinal Urinal # Voids 2 1 # Bowel Movements 1 ABP, PAP, CO, CI - Last Documented Arterial Blood Pressure 101/51 - Exam GENERAL: The patient is alert and oriented x3, not in any acute distress. Well developed, well nourished. HEENT: Pupils are round and equally reacting to light. EOMI. No scleral icterus. No conjunctival pallor. Normocephalic, atraumatic. No pharyngeal erythema. No thyromegaly. CARDIOVASCULAR: S1 and S2 present. No murmurs, rubs, or gallops. -PULMONARY: Chest is clear to auscultation, bilateral scattered wheezing within a few crackles. ABDOMEN: Soft, nontender, nondistended, normoactive bowel sounds. No palpable organomegaly. MUSCULOSKELETAL: No joint swelling or deformity. EXTREMITIES: No cyanosis, clubbing, or pedal edema. NEUROLOGICAL: Gross neurological examination did not reveal any focal deficits. SKIN: No rashes. - Labs CBC & Chem 7: 08/18/18 06:18 08/20/18 05:45 Labs: Abnormal Lab Results - Last 24 Hours (Table) 08/19/18 08/19/18 08/20/18 Range/Units 16:16 19:54 05:45 BUN 22 H (9-20) mg/dL Creatinine 1.26 H (0.66-1.25) mg/dL Glucose 148 H (74-99) mg/dL POC Glucose (mg/dL) 230 H 208 H (75-99) mg/dL 08/20/18 08/20/18 Range/Units 06:15 11:52 BUN (9-20) mg/dL Creatinine (0.66-1.25) mg/dL Glucose (74-99) mg/dL POC Glucose (mg/dL) 179 H 154 H (75-99) mg/dL Assessment and Plan Assessment: none STEMI Acute cardiogenic shock status post intra-aortic balloon pump coronary artery disease, status post stenting. Patient on aspirin and Brilinta acute systolic heart failure, ejection fraction 35-40%. Hyperlipidemia Hypertension Plan: this is a pleasant 73 years old male who presents with non-STEMI and cardiogenic shock. Cardiology and pulmonary team are following the case. Continue with diuretics and dual antiplatelet therapy.Labs and medication were reviewed.. Continue same treatment. Continue with symptomatic treatment. Resume home medication. Monitor lytes and vitals. DVT and GI prophylaxis. Further recommendations of the clinical course of the patient DVT prophylaxis: Subcutaneous heparin GI prophylaxis: Protonix Prognosis is guarded
[2018-08-20 16:50] LABS: Glucose,Whole Blood 191 mg/dL (75-99)
[2018-08-20] MEDS ORDERED: FLUTICASONE 50MCG/SPRAY NASAL 16GM EA NOSTRIL PRN (21:05)
[2018-08-20 21:28] LABS: Glucose,Whole Blood 205 mg/dL (75-99)
[2018-08-20] MEDS: ALPRAZolam 0.5 MG TAB PO PRN (22:22)
[2018-08-21 03:32] LABS: Bilirubin, Delta 0.3 mg/dL (0.0-0.2); Bilirubin,Unconjugated 0.6 mg/dL (0.0-1.1); Total Bilirubin 0.9 mg/dL (0.2-1.3); Total Protein 5.8 g/dL (6.3-8.2)
[2018-08-21 05:59] LABS: Glucose,Whole Blood 168 mg/dL (75-99)
[2018-08-21] MEDS: CARVEDILOL 3.125 MG TAB PO SCH ×2 (06:29→16:36)
[2018-08-21] MEDS: INSULIN ASPART 100 UNIT/ML 1 ML 10 ML VIAL SQ SCH ×4 (06:29→21:24)
[2018-08-21 06:53] LABS: Anisocytosis Moderate; HCT 26.6 % (39.0-53.0); HGB 8.1 gm/dL (13.0-17.5); Hypochromasia Moderate; MCHC 30.6 g/dL (31.0-37.0); MCV 91.5 fL (80.0-100.0); Macrocytosis Slight; Mean Platelet Volume 11.7; Platelet Count 298 k/uL (150-450); Poikilocytosis Slight; RDW 22.3 % (11.5-15.5); WBC 7.5 k/uL (3.8-10.6)
[2018-08-21 07:19] LABS: Albumin 3.2 g/dL (3.5-5.0); Bilirubin, Delta 0.4 mg/dL (0.0-0.2); Bilirubin,Unconjugated 0.5 mg/dL (0.0-1.1); Total Bilirubin 0.9 mg/dL (0.2-1.3)
[2018-08-21] MEDS: IPRATROPIUM-ALBUTEROL 3 ML NEB INHALATION SCH ×2 (07:20→19:11)
[2018-08-21] MEDS: PANTOPRAZOLE 40 MG/10 ML VIAL IV SCH (07:51)
[2018-08-21] MEDS: TICAGRELOR 90 MG TAB PO SCH ×2 (07:51→21:23)
[2018-08-21] MEDS: LISINOPRIL 2.5 MG TAB PO SCH (07:51)
[2018-08-21] MEDS: SPIRONOLACTONE 25 MG TAB PO SCH (07:52)
[2018-08-21] MEDS: HEPARIN SODIUM,PORCINE 5,000 UNIT/ML 1 ML VIAL SQ SCH ×3 (07:52→23:54)
[2018-08-21] MEDS: ASPIRIN 81 MG PO SCH (07:52)
[2018-08-21] MEDS: guaiFENesin 600 MG TABLET.ER PO SCH ×2 (07:52→21:23)
[2018-08-21] MEDS: ATORVASTATIN 40 MG TAB PO SCH (07:52)
[2018-08-21] MEDS: SODIUM BICARBONATE TAB 650 MG TAB PO SCH ×2 (07:52→21:23)
[2018-08-21] MEDS: FUROSEMIDE 40 MG TAB PO SCH ×2 (07:52→16:36)
[2018-08-21] MEDS: ELTROMBOPAG PO SCH (07:52)
[2018-08-21 08:33] LABS: Band Neutrophils % 4 %; Metamyelocytes # (M) 0.08 k/uL (0); Metamyelocytes % 1 %; Myelocytes # (M) 0.15 k/uL (0); Myelocytes % 2 %; Neutrophils % (M) 54 %; Nucleated Red Blood Cells 0 /100 WBC (0-0); Polychromasia Present; Total Cells Counted 200
[2018-08-21 11:28] LABS: Glucose,Whole Blood 196 mg/dL (75-99)
[2018-08-21] MEDS ORDERED: FUROSEMIDE 10 MG/ML 4 ML VIAL IV STA (12:24)
--- NOTE | 2018-08-21 13:28 | P.PN ---
Subjective Progress Note Date: 08/21/18 This is a pleasant 73-year-old gentleman with history of severe cardiomyopathy presented with acute NH, cardiogenic shock and underwent cardiac catheterization , coronary angioplasty and stenting. Initially had an intra-aortic balloon pump. Overall, patient is feeling better today. He does still feel somewhat short of breath and states that he is not sleeping well through the night. Arrangements are being made for him to potentially go to rehab today. We will give him a one-time dose of IV Lasix. Objective - Vital Signs Vital signs: Vital Signs Temp 96.3 F L 08/21/18 11:17 Pulse 70 08/21/18 11:17 Resp 18 08/21/18 11:17 BP 105/56 08/21/18 11:17 Pulse Ox 96 08/21/18 11:17 Intake & Output 08/20/18 08/21/18 08/21/18 18:59 06:59 18:59 Intake Total 600 480 Output Total 400 Balance 600 80 Weight 108.7 kg Intake: Oral 600 480 Output: Urine 400 Other: Voiding Method Toilet Toilet Urinal Urinal # Voids 1 1 # Bowel Movements 1 ABP, PAP, CO, CI - Last Documented Arterial Blood Pressure 101/51 - Exam PHYSICAL EXAMINATION: GENERAL: 73-year-old gentleman in no acute distress at the time of my examination HEENT: Head is atraumatic, normocephalic. Pupils equal, round. Sclera anicteric. Conjunctiva are clear. Mucous membranes of the mouth are moist. Neck is supple. There is no elevated jugular venous pressure. No carotid bruit is heard. HEART EXAMINATION: Heart S1, S2 normal. No murmur or gallop heard. CHEST EXAMINATION:'s reveal rales to bilateral bases. ABDOMEN: Soft, nontender. Bowel sounds are heard. No organomegaly noted. EXTREMITIES: 2+ peripheral pulses with trace to 1+ evidence of peripheral edema and no calf tenderness noted. NEUROLOGIC patient is awake, alert and oriented 3 . . - Labs CBC & Chem 7: 08/21/18 05:49 08/20/18 05:45 Labs: Abnormal Lab Results - Last 24 Hours (Table) 08/20/18 08/20/18 08/20/18 Range/Units 05:45 16:42 21:26 RBC (4.30-5.90) m/uL Hgb (13.0-17.5) gm/dL Hct (39.0-53.0) % MCHC (31.0-37.0) g/dL RDW (11.5-15.5) % Monocytes # (Manual) (0-1.0) k/uL Metamyelocytes # (Man) (0) k/uL Myelocytes # (Manual) (0) k/uL POC Glucose (mg/dL) 191 H 205 H (75-99) mg/dL Delta Bilirubin 0.3 H (0.0-0.2) mg/dL Total Protein 5.8 L (6.3-8.2) g/dL Albumin 3.0 L (3.5-5.0) g/dL 08/21/18 08/21/18 08/21/18 Range/Units 05:49 05:49 05:57 RBC 2.90 L (4.30-5.90) m/uL Hgb 8.1 L (13.0-17.5) gm/dL Hct 26.6 L (39.0-53.0) % MCHC 30.6 L (31.0-37.0) g/dL RDW 22.3 H (11.5-15.5) % Monocytes # (Manual) 1.80 H (0-1.0) k/uL Metamyelocytes # (Man) 0.08 H (0) k/uL Myelocytes # (Manual) 0.15 H (0) k/uL POC Glucose (mg/dL) 168 H (75-99) mg/dL Delta Bilirubin 0.4 H (0.0-0.2) mg/dL Total Protein 6.0 L (6.3-8.2) g/dL Albumin 3.2 L (3.5-5.0) g/dL 08/21/18 Range/Units 11:26 RBC (4.30-5.90) m/uL Hgb (13.0-17.5) gm/dL Hct (39.0-53.0) % MCHC (31.0-37.0) g/dL RDW (11.5-15.5) % Monocytes # (Manual) (0-1.0) k/uL Metamyelocytes # (Man) (0) k/uL Myelocytes # (Manual) (0) k/uL POC Glucose (mg/dL) 196 H (75-99) mg/dL Delta Bilirubin (0.0-0.2) mg/dL Total Protein (6.3-8.2) g/dL Albumin (3.5-5.0) g/dL Assessment and Plan Plan: Assessment and plan #1 non-ST elevation myocardial infarction, status post stenting of the proximal circumflex, status post intra-aortic balloon pump placement #2 known history of coronary artery disease with prior LAD stenting, most recently in April of this year patient underwent stenting of the circumflex artery #3 ischemic cardio myopathy with prior AICD implantation #4 diabetes #5 hyperlipidemia #6 acute on chronic renal failure #7 hypomagnesemia #8hyperkalemia #9 history of nicotine dependence #10 ITP Plan We will give the patient one time dose of IV Lasix today. Continue the rest of his medications which include aspirin 81 mg daily, Coreg 3.125 mg twice a day, Lasix 40 mg by mouth twice a day, lisinopril 2.5 mg daily, Aldactone 25 mg daily and Brilinta 90 mg one tablet by mouth twice a day. DNP note has been reviewed, I agree with a documented findings and plan of care. Patient was seen and examined.
[2018-08-21] MEDS: SODIUM CHLORIDE 0.9% 1,000 ML IV SCH (15:16)
[2018-08-21 16:13] LABS: Glucose,Whole Blood 185 mg/dL (75-99)
--- NOTE | 2018-08-21 17:11 | P.PN ---
Subjective this is a pleasant 73 years old male with past medical history of coronary artery disease,status post cardiac cath and stenting history of prostate cancer.who presents with lower chest and epigastric pain. Patient was found to have non-STEMI and acute congestive heart failure that needed pump therapy. Patient has been evaluated by cardiology and pulmonary team. Cardiology team added Aldactone today. patient still have some cough with greenish phlegm that bothering him and he was asking something to lose his secretions. Mucinex is been added for a few days. Patient was complaining from chest pain on admission , today is 1-2/10in severity this morning however small resolved now, patient states its similar to the chest pain he came in with the emergency room. Patient also complains from bilateral leg swelling.WBC 15.8 K, hemoglobin 7.7.Creatinine looks his stable at 1.3.magnesium 1.4. Glucose is ranging between 169-255.urine analysis was suggestive for infection.however urine analysis was negative with showing no growth. 08/20/2018 Patient still have dyspnea, no chest pain. He has little cough with gustafson phlegm. No abdominal pain no change in urine or bowel habits. No dysuria. No nausea vomiting or fever. Vital signs stable. Creatinine is improving from 1.6 -1.3-1.26 today. Sugar is controlled. Urine analysis is negative. Follow-up LFTs and CBC. Cardiology, and pulmonary R following the patient. His been evaluated by Dr. Romo, for possible subacute rehab to which the patient is agreeable 08/21/2018 Patient still has dyspnea but slightly better, no chest pain. Patient has a started on ceftriaxone yesterday. Leukocytosis resolved today to 17.5. Sugar is controlled. I think we need to continue with antibiotics for short course as patient might benefit from it. Cardiology team are following the patient and their input is appreciated. Patient continue on diuretics. And antiplatelet therapy. Objective - Vital Signs Vital signs: Vital Signs Temp 96.3 F L 08/21/18 11:17 Pulse 70 08/21/18 16:35 Resp 18 08/21/18 11:17 BP 162/62 08/21/18 16:35 Pulse Ox 96 08/21/18 11:17 Intake & Output 08/20/18 08/21/18 08/21/18 18:59 06:59 18:59 Intake Total 600 480 Output Total 1000 Balance 600 -520 Weight 108.7 kg Intake: Oral 600 480 Output: Urine 1000 Other: Voiding Method Toilet Toilet Urinal Urinal # Voids 1 1 # Bowel Movements 1 ABP, PAP, CO, CI - Last Documented Arterial Blood Pressure 101/51 - Exam GENERAL: The patient is alert and oriented x3, not in any acute distress. Well developed, well nourished. HEENT: Pupils are round and equally reacting to light. EOMI. No scleral icterus. No conjunctival pallor. Normocephalic, atraumatic. No pharyngeal erythema. No thyromegaly. CARDIOVASCULAR: S1 and S2 present. No murmurs, rubs, or gallops. -PULMONARY: Chest is clear to auscultation, bilateral scattered wheezing within a few crackles. ABDOMEN: Soft, nontender, nondistended, normoactive bowel sounds. No palpable organomegaly. MUSCULOSKELETAL: No joint swelling or deformity. EXTREMITIES: No cyanosis, clubbing, or pedal edema. NEUROLOGICAL: Gross neurological examination did not reveal any focal deficits. SKIN: No rashes. - Labs CBC & Chem 7: 08/21/18 05:49 08/20/18 05:45 Labs: Abnormal Lab Results - Last 24 Hours (Table) 08/20/18 08/20/18 08/21/18 Range/Units 05:45 21:26 05:49 RBC 2.90 L (4.30-5.90) m/uL Hgb 8.1 L (13.0-17.5) gm/dL Hct 26.6 L (39.0-53.0) % MCHC 30.6 L (31.0-37.0) g/dL RDW 22.3 H (11.5-15.5) % Monocytes # (Manual) 1.80 H (0-1.0) k/uL Metamyelocytes # (Man) 0.08 H (0) k/uL Myelocytes # (Manual) 0.15 H (0) k/uL POC Glucose (mg/dL) 205 H (75-99) mg/dL Delta Bilirubin 0.3 H (0.0-0.2) mg/dL Total Protein 5.8 L (6.3-8.2) g/dL Albumin 3.0 L (3.5-5.0) g/dL 08/21/18 08/21/18 08/21/18 Range/Units 05:49 05:57 11:26 RBC (4.30-5.90) m/uL Hgb (13.0-17.5) gm/dL Hct (39.0-53.0) % MCHC (31.0-37.0) g/dL RDW (11.5-15.5) % Monocytes # (Manual) (0-1.0) k/uL Metamyelocytes # (Man) (0) k/uL Myelocytes # (Manual) (0) k/uL POC Glucose (mg/dL) 168 H 196 H (75-99) mg/dL Delta Bilirubin 0.4 H (0.0-0.2) mg/dL Total Protein 6.0 L (6.3-8.2) g/dL Albumin 3.2 L (3.5-5.0) g/dL 08/21/18 Range/Units 16:12 RBC (4.30-5.90) m/uL Hgb (13.0-17.5) gm/dL Hct (39.0-53.0) % MCHC (31.0-37.0) g/dL RDW (11.5-15.5) % Monocytes # (Manual) (0-1.0) k/uL Metamyelocytes # (Man) (0) k/uL Myelocytes # (Manual) (0) k/uL POC Glucose (mg/dL) 185 H (75-99) mg/dL Delta Bilirubin (0.0-0.2) mg/dL Total Protein (6.3-8.2) g/dL Albumin (3.5-5.0) g/dL Assessment and Plan Assessment: none STEMI Acute cardiogenic shock status post intra-aortic balloon pump coronary artery disease, status post stenting. Patient on aspirin and Brilinta acute systolic heart failure, ejection fraction 35-40%. Hyperlipidemia Hypertension Plan: this is a pleasant 73 years old male who presents with non-STEMI and cardiogenic shock. Cardiology and pulmonary team are following the case. Continue with diuretics and dual antiplatelet therapy.Labs and medication were reviewed.. Continue same treatment. Continue with symptomatic treatment. Resume home medication. Monitor lytes and vitals. DVT and GI prophylaxis. Further recommendations of the clinical course of the patient DVT prophylaxis: Subcutaneous heparin GI prophylaxis: Protonix Prognosis is guarded
[2018-08-21 20:54] LABS: Glucose,Whole Blood 178 mg/dL (75-99)
[2018-08-22 05:49] LABS: Glucose,Whole Blood 178 mg/dL (75-99)
[2018-08-22 06:08] LABS: Anisocytosis Moderate; HCT 28.6 % (39.0-53.0); HGB 8.9 gm/dL (13.0-17.5); Hypochromasia Marked; MCH 28.8 pg (25.0-35.0); MCV 92.9 fL (80.0-100.0); Macrocytosis Slight; Mean Platelet Volume 11.5; Platelet Count 330 k/uL (150-450); Poikilocytosis Slight; RBC 3.08 m/uL (4.30-5.90); RDW 22.6 % (11.5-15.5); WBC 8.4 k/uL (3.8-10.6)
[2018-08-22 06:24] LABS: Calcium 9.4 mg/dL (8.4-10.2)
[2018-08-22] MEDS: INSULIN ASPART 100 UNIT/ML 1 ML 10 ML VIAL SQ SCH ×4 (06:39→21:13)
[2018-08-22] MEDS: CARVEDILOL 3.125 MG TAB PO SCH ×2 (06:39→16:57)
[2018-08-22 06:56] LABS: Potassium 4.1 mmol/L (3.5-5.1)
[2018-08-22 07:03] LABS: Band Neutrophils % 1 %; Lymphocytes # (M) 1.93 k/uL (1.0-4.8); Neutrophils % (M) 57 %; Nucleated Red Blood Cells 0 /100 WBC (0-0); Total Cells Counted 100
[2018-08-22 07:04] LABS: Large Platelets Present; Ovalocytes Present; Polychromasia Present
[2018-08-22] MEDS: IPRATROPIUM-ALBUTEROL 3 ML NEB INHALATION SCH ×2 (07:24→19:12)
[2018-08-22] MEDS: HEPARIN SODIUM,PORCINE 5,000 UNIT/ML 1 ML VIAL SQ SCH ×3 (08:16→23:29)
[2018-08-22] MEDS: ASPIRIN 81 MG PO SCH (08:16)
[2018-08-22] MEDS: SODIUM BICARBONATE TAB 650 MG TAB PO SCH ×2 (08:16→20:01)
[2018-08-22] MEDS: ATORVASTATIN 40 MG TAB PO SCH (08:16)
[2018-08-22] MEDS: guaiFENesin 600 MG TABLET.ER PO SCH ×2 (08:16→20:01)
[2018-08-22] MEDS: LISINOPRIL 2.5 MG TAB PO SCH (08:16)
[2018-08-22] MEDS: PANTOPRAZOLE 40 MG/10 ML VIAL IV SCH (08:16)
[2018-08-22] MEDS: FUROSEMIDE 40 MG TAB PO SCH ×2 (08:16→16:57)
[2018-08-22] MEDS: SPIRONOLACTONE 25 MG TAB PO SCH (08:16)
[2018-08-22] MEDS: TICAGRELOR 90 MG TAB PO SCH ×2 (08:17→20:01)
[2018-08-22] MEDS: ELTROMBOPAG PO SCH (08:28)
[2018-08-22 11:39] LABS: Glucose,Whole Blood 181 mg/dL (75-99)
--- NOTE | 2018-08-22 12:55 | P.PN ---
Subjective Progress Note Date: 08/22/18 Physical pleasant 73-year-old gentleman with history of severe cardiomyopathy presented with acute [place], cardiogenic shock and underwent cardiac catheterization , coronary angioplasty and stenting. Initially had an intra-aortic balloon pump. Overall, patient is feeling better today. Breathing is stable. He denies any symptoms of chest discomfort. Most recent limited echocardiogram showed ejection fraction 35-40% with basal inferior septal LV wall motion hypokinesis and inferolateral hypokinesis. Vital signs are stable. Plan is for discharge to rehab. Objective - Vital Signs Vital signs: Vital Signs Temp 97.6 F 08/22/18 08:14 Pulse 74 08/22/18 11: Resp 18 08/22/18 12:00 BP 96/52 08/22/18 11:25 Pulse Ox 94 L 08/22/18 11:25 Intake & Output 08/21/18 08/22/18 08/22/18 18:59 06:59 18:59 Intake Total 720 240 Output Total 1000 Balance -280 240 Weight 107 kg Intake: Oral 720 240 Output: Urine 1000 Other: Voiding Method Toilet Toilet Toilet Urinal Urinal Urinal # Voids 1 1 ABP, PAP, CO, CI - Last Documented Arterial Blood Pressure 101/51 - Exam PHYSICAL EXAMINATION: HEENT: Head is atraumatic, normocephalic. Pupils equal, round. Neck is supple. There is no elevated jugular venous pressure. HEART EXAMINATION: Heart sounds regular, S1 and S2 normal. No murmur or gallop heard. CHEST EXAMINATION: Lungs are clear to auscultation and precussion. No chest wall tenderness is noted on palpation or with deep breathing. ABDOMEN: Soft, nontender. . EXTREMITIES: 2+ peripheral pulses with no evidence of peripheral edema and no calf tenderness noted. NEUROLOGIC patient is awake, alert and oriented x3. . - Labs CBC & Chem 7: 08/22/18 05:53 08/22/18 05:53 Labs: Abnormal Lab Results - Last 24 Hours (Table) 08/21/18 08/21/18 08/22/18 Range/Units 16:12 20:51 05:40 RBC (4.30-5.90) m/uL Hgb (13.0-17.5) gm/dL Hct (39.0-53.0) % RDW (11.5-15.5) % Monocytes # (Manual) (0-1.0) k/uL BUN (9-20) mg/dL Creatinine (0.66-1.25) mg/dL Glucose (74-99) mg/dL POC Glucose (mg/dL) 185 H 178 H 178 H (75-99) mg/dL 08/22/18 08/22/18 08/22/18 Range/Units 05:53 05:53 11:28 RBC 3.08 L (4.30-5.90) m/uL Hgb 8.9 L (13.0-17.5) gm/dL Hct 28.6 L (39.0-53.0) % RDW 22.6 H (11.5-15.5) % Monocytes # (Manual) 1.60 H (0-1.0) k/uL BUN 21 H (9-20) mg/dL Creatinine 1.48 H (0.66-1.25) mg/dL Glucose 174 H (74-99) mg/dL POC Glucose (mg/dL) 181 H (75-99) mg/dL Assessment and Plan Assessment: #1 non-ST elevation myocardial infarction, status post stenting of the proximal circumflex, status post intra-aortic balloon pump placement #2 known history of coronary artery disease with prior LAD stenting, most recently in April of this year patient underwent stenting of the circumflex artery #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 Continue to monitor renal function and electrolytes. We will continue to follow the patient for further recommendations accordingly. [employer] note has been reviewed, I agree with a documented findings and plan of care. Patient was seen and examined.
[2018-08-22] MEDS: SODIUM CHLORIDE 0.9% 1,000 ML IV SCH (13:12)
--- NOTE | 2018-08-22 15:56 | P.PN ---
Subjective Progress Note Date: 08/22/18 Seen and examined for the follow-up of acute kidney injury. Baseline creatinine around 1.2. Creatinine creeping today. No nausea vomiting or diarrhea. Currently on Lasix 40 mg twice a day. Objective - Vital Signs Vital signs: Vital Signs Temp 97.7 F 08/22/18 15:21 Pulse 70 08/22/18 15:21 Resp 18 08/22/18 15:21 BP 131/63 08/22/18 15:21 Pulse Ox 96 08/22/18 15:21 Intake & Output 08/21/18 08/22/18 08/22/18 18:59 06:59 18:59 Intake Total 720 360 Output Total 1000 500 Balance -280 -140 Weight 107 kg Intake: Oral 720 360 Output: Urine 1000 500 Other: Voiding Method Toilet Toilet Toilet Urinal Urinal Urinal # Voids 1 1 ABP, PAP, CO, CI - Last Documented Arterial Blood Pressure 101/51 - Exam No acute distress S1-S2 heard Lungs clear Edema - Labs CBC & Chem 7: 08/22/18 05:53 08/22/18 05:53 Labs: Abnormal Lab Results - Last 24 Hours (Table) 08/21/18 08/21/18 08/22/18 Range/Units 16:12 20:51 05:40 RBC (4.30-5.90) m/uL Hgb (13.0-17.5) gm/dL Hct (39.0-53.0) % RDW (11.5-15.5) % Monocytes # (Manual) (0-1.0) k/uL BUN (9-20) mg/dL Creatinine (0.66-1.25) mg/dL Glucose (74-99) mg/dL POC Glucose (mg/dL) 185 H 178 H 178 H (75-99) mg/dL 08/22/18 08/22/18 08/22/18 Range/Units 05:53 05:53 11:28 RBC 3.08 L (4.30-5.90) m/uL Hgb 8.9 L (13.0-17.5) gm/dL Hct 28.6 L (39.0-53.0) % RDW 22.6 H (11.5-15.5) % Monocytes # (Manual) 1.60 H (0-1.0) k/uL BUN 21 H (9-20) mg/dL Creatinine 1.48 H (0.66-1.25) mg/dL Glucose 174 H (74-99) mg/dL POC Glucose (mg/dL) 181 H (75-99) mg/dL Assessment and Plan Assessment: #1 nonoliguric acute kidney injury secondary to ATN. Creatinine slight creep today. #2 status post cardiac cath with intra-aortic balloon pump. #3 anemia with chronic kidney disease #4 low normal blood pressures Plan: #1 monitor renal function closely #2 check PVRs #3 currently on Lasix, lisinopril and Aldactone. If renal function continues to worsen stop lisinopril and Aldactone #4 labs in the morning
[2018-08-22 16:29] LABS: Glucose,Whole Blood 178 mg/dL (75-99)
[2018-08-22 21:07] LABS: Glucose,Whole Blood 201 mg/dL (75-99)
--- NOTE | 2018-08-23 00:09 | P.PN ---
Subjective this is a pleasant 73 years old male with past medical history of coronary artery disease,status post cardiac cath and stenting history of prostate cancer.who presents with lower chest and epigastric pain. Patient was found to have non-STEMI and acute congestive heart failure that needed pump therapy. Patient has been evaluated by cardiology and pulmonary team. Cardiology team added Aldactone today. patient still have some cough with greenish phlegm that bothering him and he was asking something to lose his secretions. Mucinex is been added for a few days. Patient was complaining from chest pain on admission , today is 1-2/10in severity this morning however small resolved now, patient states its similar to the chest pain he came in with the emergency room. Patient also complains from bilateral leg swelling.WBC 15.8 K, hemoglobin 7.7.Creatinine looks his stable at 1.3.magnesium 1.4. Glucose is ranging between 169-255.urine analysis was suggestive for infection.however urine analysis was negative with showing no growth. 08/20/2018 Patient still have dyspnea, no chest pain. He has little cough with gustafson phlegm. No abdominal pain no change in urine or bowel habits. No dysuria. No nausea vomiting or fever. Vital signs stable. Creatinine is improving from 1.6 -1.3-1.26 today. Sugar is controlled. Urine analysis is negative. Follow-up LFTs and CBC. Cardiology, and pulmonary R following the patient. His been evaluated by Dr. Romo, for possible subacute rehab to which the patient is agreeable 08/21/2018 Patient still has dyspnea but slightly better, no chest pain. Patient has a started on ceftriaxone yesterday. Leukocytosis resolved today to 17.5. Sugar is controlled. I think we need to continue with antibiotics for short course as patient might benefit from it. Cardiology team are following the patient and their input is appreciated. Patient continue on diuretics. And antiplatelet therapy. 08/22/2018 Patient breathing quietly although he still complains from some dyspnea. No chest pain.. His leukocytosis has resolved. I think antibiotics can be stopped today. Patient needs to go to rehab upon discharge. Liver enzymes came back to normal. He remains on by mouth Lasix. He is not in pain. Chest x -ray shows improved pulmonary congestion. Creatinine 1.4. Sodium 143. Sugar controlled Objective - Vital Signs Vital signs: Vital Signs Temp 97.7 F 08/22/18 15:21 Pulse 70 08/22/18 15:21 Resp 18 08/22/18 15:21 BP 131/63 08/22/18 15:21 Pulse Ox 96 08/22/18 15:21 Intake & Output 08/21/18 08/22/18 08/22/18 18:59 06:59 18:59 Intake Total 720 360 Output Total 1000 500 Balance -280 -140 Weight 107 kg Intake: Oral 720 360 Output: Urine 1000 500 Other: Voiding Method Toilet Toilet Toilet Urinal Urinal Urinal # Voids 1 1 ABP, PAP, CO, CI - Last Documented Arterial Blood Pressure 101/51 - Exam GENERAL: The patient is alert and oriented x3, not in any acute distress. Well developed, well nourished. HEENT: Pupils are round and equally reacting to light. EOMI. No scleral icterus. No conjunctival pallor. Normocephalic, atraumatic. No pharyngeal erythema. No thyromegaly. CARDIOVASCULAR: S1 and S2 present. No murmurs, rubs, or gallops. -PULMONARY: Chest is clear to auscultation, bilateral scattered wheezing within a few crackles. ABDOMEN: Soft, nontender, nondistended, normoactive bowel sounds. No palpable organomegaly. MUSCULOSKELETAL: No joint swelling or deformity. EXTREMITIES: No cyanosis, clubbing, or pedal edema. NEUROLOGICAL: Gross neurological examination did not reveal any focal deficits. SKIN: No rashes. - Labs CBC & Chem 7: 08/22/18 05:53 08/22/18 05:53 Labs: Abnormal Lab Results - Last 24 Hours (Table) 08/21/18 08/21/18 08/22/18 Range/Units 16:12 20:51 05:40 RBC (4.30-5.90) m/uL Hgb (13.0-17.5) gm/dL Hct (39.0-53.0) % RDW (11.5-15.5) % Monocytes # (Manual) (0-1.0) k/uL BUN (9-20) mg/dL Creatinine (0.66-1.25) mg/dL Glucose (74-99) mg/dL POC Glucose (mg/dL) 185 H 178 H 178 H (75-99) mg/dL 08/22/18 08/22/18 08/22/18 Range/Units 05:53 05:53 11:28 RBC 3.08 L (4.30-5.90) m/uL Hgb 8.9 L (13.0-17.5) gm/dL Hct 28.6 L (39.0-53.0) % RDW 22.6 H (11.5-15.5) % Monocytes # (Manual) 1.60 H (0-1.0) k/uL BUN 21 H (9-20) mg/dL Creatinine 1.48 H (0.66-1.25) mg/dL Glucose 174 H (74-99) mg/dL POC Glucose (mg/dL) 181 H (75-99) mg/dL Assessment and Plan Assessment: none STEMI Acute cardiogenic shock status post intra-aortic balloon pump coronary artery disease, status post stenting. Patient on aspirin and Brilinta acute systolic heart failure, ejection fraction 35-40%. Hyperlipidemia Hypertension Plan: this is a pleasant 73 years old male who presents with non-STEMI and cardiogenic shock. Cardiology and pulmonary team are following the case. Continue with diuretics and dual antiplatelet therapy.Labs and medication were reviewed.. Continue same treatment. Continue with symptomatic treatment. Resume home medication. Monitor lytes and vitals. DVT and GI prophylaxis. Further recommendations of the clinical course of the patient DVT prophylaxis: Subcutaneous heparin GI prophylaxis: Protonix Prognosis is guarded
[2018-08-23 05:51] LABS: Glucose,Whole Blood 141 mg/dL (75-99)
[2018-08-23] MEDS: CARVEDILOL 3.125 MG TAB PO SCH (06:32)
[2018-08-23] MEDS: INSULIN ASPART 100 UNIT/ML 1 ML 10 ML VIAL SQ SCH ×2 (06:32→12:10)
[2018-08-23 07:20] LABS: Calcium 9.4 mg/dL (8.4-10.2); Potassium 3.9 mmol/L (3.5-5.1)
[2018-08-23] MEDS: IPRATROPIUM-ALBUTEROL 3 ML NEB INHALATION SCH (07:31)
[2018-08-23 07:44] LABS: Anisocytosis Moderate; HCT 27.6 % (39.0-53.0); HGB 8.7 gm/dL (13.0-17.5); Hypochromasia Moderate; MCH 28.7 pg (25.0-35.0); MCHC 31.5 g/dL (31.0-37.0); MCV 91.1 fL (80.0-100.0); Macrocytosis Slight; Mean Platelet Volume 11.7; Platelet Count 281 k/uL (150-450); Poikilocytosis Slight; RBC 3.03 m/uL (4.30-5.90); RDW 22.6 % (11.5-15.5); WBC 5.9 k/uL (3.8-10.6)
[2018-08-23 08:36] LABS: Band Neutrophils % 2 %; Lymphocytes # (M) 0.65 k/uL (1.0-4.8); Monocytes # (M) 1.24 k/uL (0-1.0); Neutrophils % (M) 66 %; Nucleated Red Blood Cells 0 /100 WBC (0-0); Total Cells Counted 100
[2018-08-23 08:37] LABS: Large Platelets Present
[2018-08-23] MEDS: FUROSEMIDE 40 MG TAB PO SCH (09:09)
[2018-08-23] MEDS: TICAGRELOR 90 MG TAB PO SCH (09:09)
[2018-08-23] MEDS: ASPIRIN 81 MG PO SCH (09:09)
[2018-08-23] MEDS: LISINOPRIL 2.5 MG TAB PO SCH (09:09)
[2018-08-23] MEDS: guaiFENesin 600 MG TABLET.ER PO SCH (09:09)
[2018-08-23] MEDS: ATORVASTATIN 40 MG TAB PO SCH (09:09)
[2018-08-23] MEDS: SODIUM BICARBONATE TAB 650 MG TAB PO SCH (09:09)
[2018-08-23] MEDS: SPIRONOLACTONE 25 MG TAB PO SCH (09:09)
[2018-08-23] MEDS: ELTROMBOPAG PO SCH (09:09)
[2018-08-23] MEDS: HEPARIN SODIUM,PORCINE 5,000 UNIT/ML 1 ML VIAL SQ SCH (09:10)
[2018-08-23] MEDS: PANTOPRAZOLE 40 MG/10 ML VIAL IV SCH (09:10)
--- NOTE | 2018-08-23 10:25 | P.PN ---
Subjective Progress Note Date: 08/23/18 This is a pleasant 73-year-old gentleman with history of severe cardiomyopathy presented with acute [place], cardiogenic shock and underwent cardiac catheterization , coronary angioplasty and stenting. Initially had an intra-aortic balloon pump. Overall, patient is feeling better today. He does still feel somewhat short of breath and states that he is not sleeping well through the night. Arrangements are being made for him to potentially go to rehab today. We will give him a one-time dose of IV Lasix. 08/23/2018 Patient seen and examined this morning, doing well, sitting up in the chair at bedside. Anticipating transferred to rehab today. Blood pressure 128/80 with a heart rate in the 70s. 96% on room air. White blood cell count 5.9, hemoglobin 8.7, platelet count 281. Sodium 144, potassium 3.9, BUN 18, creatinine 1.4. Objective - Vital Signs Vital signs: Vital Signs Temp 97.7 F 08/23/18 09:01 Pulse 79 08/23/18 09:01 Resp 16 08/23/18 09:01 BP 128/81 08/23/18 09:01 Pulse Ox 96 08/23/18 09:01 Intake & Output 08/22/18 08/23/18 08/23/18 18:59 06:59 18:59 Intake Total 600 120 180 Output Total 500 2 400 Balance 100 118 -220 Weight 106.3 kg Intake: Intake, IV Titration 120 Amount Sodium Chloride 0.9% 1, 20 000 ml @ 10 mls/hr IV . Q24H JESS Rx#:[id number] cefTRIAXone 1,000 mg In 100 Sodium Chloride 0.9% 50 ml @ 100 mls/hr IVPB Q24H JESS Rx#:[id number] Oral 600 180 Output: Urine 500 400 Stool 2 Other: Voiding Method Toilet Toilet Urinal Urinal # Voids 1 1 ABP, PAP, CO, CI - Last Documented Arterial Blood Pressure 101/51 - Exam PHYSICAL EXAMINATION: GENERAL: 73-year-old gentleman in no acute distress at the time of my examination HEENT: Head is atraumatic, normocephalic. Pupils equal, round. Sclera anicteric. Conjunctiva are clear. Mucous membranes of the mouth are moist. Neck is supple. There is no elevated jugular venous pressure. No carotid bruit is heard. HEART EXAMINATION: Heart S1, S2 normal. No murmur or gallop heard. CHEST EXAMINATION: Lungs are clear to auscultation ABDOMEN: Soft, nontender. Bowel sounds are heard. No organomegaly noted. EXTREMITIES: 2+ peripheral pulses with trace to 1+ evidence of peripheral edema and no calf tenderness noted. NEUROLOGIC patient is awake, alert and oriented 3 . . - Labs CBC & Chem 7: 08/23/18 06:19 08/23/18 06:19 Labs: Abnormal Lab Results - Last 24 Hours (Table) 08/22/18 08/22/18 08/22/18 Range/Units 11:28 16:20 21:03 RBC (4.30-5.90) m/uL Hgb (13.0-17.5) gm/dL Hct (39.0-53.0) % RDW (11.5-15.5) % Lymphocytes # (Manual) (1.0-4.8) k/uL Monocytes # (Manual) (0-1.0) k/uL Creatinine (0.66-1.25) mg/dL Glucose (74-99) mg/dL POC Glucose (mg/dL) 181 H 178 H 201 H (75-99) mg/dL 08/23/18 08/23/18 08/23/18 Range/Units 05:50 06:19 06:19 RBC 3.03 L (4.30-5.90) m/uL Hgb 8.7 L (13.0-17.5) gm/dL Hct 27.6 L (39.0-53.0) % RDW 22.6 H (11.5-15.5) % Lymphocytes # (Manual) 0.65 L (1.0-4.8) k/uL Monocytes # (Manual) 1.24 H (0-1.0) k/uL Creatinine 1.43 H (0.66-1.25) mg/dL Glucose 141 H (74-99) mg/dL POC Glucose (mg/dL) 141 H (75-99) mg/dL Assessment and Plan Plan: Assessment and plan #1 non-ST elevation myocardial infarction, status post stenting of the proximal circumflex, status post intra-aortic balloon pump placement #2 known history of coronary artery disease with prior LAD stenting, most recently in April of this year patient underwent stenting of the circumflex artery #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 Arrangements are being made for potential transfer to rehab today. Follow-up appointment in the office post discharge. DNP note has been reviewed, I agree with a documented findings and plan of care. Patient was seen and examined.
--- NOTE | 2018-08-23 11:04 | P.PN ---
Subjective Patient is seen in follow-up for acute kidney injury on chronic kidney disease. Patient has chronic kidney disease stage III with baseline creatinine in the range of 1.1-1.3 secondary to nephrosclerosis. Creatinine peaked at 2.6 and is now stable in the range of 1.2-1.4. Patient had a cardiac catheterization on August 11 and had a stent placed to the proximal circumflex. He had an intra- aortic balloon pump placed which was removed on August 13. He's off Levophed and dobutamine. He is maintained on Lasix 40 mg orally twice daily and is diuresing well. Denies any active chest pain or shortness of breath at this time. Vital signs are stable. General: The patient appeared well nourished and normally developed. HEENT: Head exam is unremarkable. Neck is without jugular venous distension. LUNGS: Lungs are clear to auscultation and percussion. Breath sounds decreased. HEART: Rate and Rhythm are regular. First and second heart sounds normal. No murmurs, rubs or gallops. ABDOMEN: Abdominal exam reveals normal bowel sounds. Non-tender and non- distended. No evidence of peritonitis. EXTREMITITES: Trace edema. Objective - Vital Signs Vital signs: Vital Signs Temp 97.7 F 08/23/18 09:01 Pulse 79 08/23/18 09:01 Resp 16 08/23/18 09:01 BP 128/81 08/23/18 09:01 Pulse Ox 96 08/23/18 09:01 Intake & Output 08/22/18 08/23/18 08/23/18 18:59 06:59 18:59 Intake Total 600 120 180 Output Total 500 2 400 Balance 100 118 -220 Weight 106.3 kg Intake: Intake, IV Titration 120 Amount Sodium Chloride 0.9% 1, 20 000 ml @ 10 mls/hr IV . Q24H JESS Rx#:[id number] cefTRIAXone 1,000 mg In 100 Sodium Chloride 0.9% 50 ml @ 100 mls/hr IVPB Q24H JESS Rx#:[id number] Oral 600 180 Output: Urine 500 400 Stool 2 Other: Voiding Method Toilet Toilet Urinal Urinal # Voids 1 1 ABP, PAP, CO, CI - Last Documented Arterial Blood Pressure 101/51 - Labs CBC & Chem 7: 08/23/18 06:19 08/23/18 06:19 Labs: Abnormal Lab Results - Last 24 Hours (Table) 08/22/18 08/22/18 08/22/18 Range/Units 11:28 16:20 21:03 RBC (4.30-5.90) m/uL Hgb (13.0-17.5) gm/dL Hct (39.0-53.0) % RDW (11.5-15.5) % Lymphocytes # (Manual) (1.0-4.8) k/uL Monocytes # (Manual) (0-1.0) k/uL Creatinine (0.66-1.25) mg/dL Glucose (74-99) mg/dL POC Glucose (mg/dL) 181 H 178 H 201 H (75-99) mg/dL 08/23/18 08/23/18 08/23/18 Range/Units 05:50 06:19 06:19 RBC 3.03 L (4.30-5.90) m/uL Hgb 8.7 L (13.0-17.5) gm/dL Hct 27.6 L (39.0-53.0) % RDW 22.6 H (11.5-15.5) % Lymphocytes # (Manual) 0.65 L (1.0-4.8) k/uL Monocytes # (Manual) 1.24 H (0-1.0) k/uL Creatinine 1.43 H (0.66-1.25) mg/dL Glucose 141 H (74-99) mg/dL POC Glucose (mg/dL) 141 H (75-99) mg/dL Assessment and Plan Plan: Assessment: 1. Nonoliguric acute kidney injury secondary to ATN secondary to hypotension as well as contrast-induced nephropathy. Creatinine peaked at 2.6 and is now stable in the range of 1.2-1.4. 2. Chronic kidney disease stage III with baseline creatinine in the range of 1.1-1.3 secondary to nephrosclerosis. 3. NSTEMI status post cardiac catheterization and a stent placement to the proximal circumflex artery on August 11. Currently has intra-aortic balloon pump in place. 4. Metabolic acidosis secondary to acute kidney injury maintained on sodium bicarbonate. Better. 5. Hypotension related to underlying cardiac status. Better. Off Levophed. 6. Anemia. Iron deficiency noted. No active bleeding noted. Status post 3 doses of IV iron. 7. Hypomagnesemia secondary to diuresis. Being replaced. Plan: Maintain lasix 40 mg po twice daily. Encourage oral intake. Avoid nephrotoxins. Decrease sodium bicarbonate to 650 mg once daily. Anticipate discharge soon. Follow up outpatient in the next 1-2 weeks.
[2018-08-23 11:29] VITALS: BP 100/50; PULSE 70; RESP 18; TEMP 97.5
[2018-08-23 11:45] LABS: Glucose,Whole Blood 174 mg/dL (75-99)
[2018-08-23] MEDS: SODIUM CHLORIDE 0.9% 1,000 ML IV SCH (14:59)
--- NOTE | 2018-08-23 15:10 | DS ---
DISCHARGE SUMMARY DATE OF ADMISSION: 08/10/18. DATE OF DISCHARGE: 08/23/18. FINAL DIAGNOSIS: 1. Acute non-ST elevation myocardial infarction with stent to the circumflex. 2. Coronary artery disease with prior stent in April of 2018. 3. AICD. 4. ITP. 5. Colonic diverticulosis asymptomatic. 6. Primary osteoarthritis in the lower back. 7. Obesity; BMI 33. 8. Acute kidney injury likely acute tubular necrosis combination of hypotension and contrast nephropathy. 9. Acute metabolic acidosis from renal failure. 10.Hyperkalemia from renal failure. 11.Normocytic anemia cause unknown. 12.Acute congestive heart failure from systolic congestive heart failure, EF 35-40 percent from underlying coronary artery disease. 13.Cardiogenic shock status post intra-aortic balloon pump and pressors. 14.Possible pneumonia. The patient did complete a course of antibiotics. HOSPITAL COURSE: This patient presented with acute myocardial infarction. Did have a stent to the circumflex, went into cardiogenic shock, had to have intra-aortic balloon pump and pressors. The patient also went into renal failure. Creatinine did go up to 2.6, but has not come down. Hovering around 1.43. The patient is feeling better now able to take a few steps to the bathroom. Tolerating a diet, having a bowel movement. No chest pain. Care was discussed in detail with the patient and family at the bedside. Questions were answered. PHYSICAL EXAMINATION: Temperature 97.5 , pulse 70, respiratory rate 18, blood pressure 100/50, pulse ox 98% on room ai. Lungs fair entry. Cardiovascular 1st 2nd sounds normal. INVESTIGATIONS: White count 5.9, hemoglobin 8.7, potassium 3.8, creatinine 1.43. CONSULTATIONS: Dr. Jose Negrete and colleagues from Cardiology, Dr. Yi and colleagues from Pulmonary Critical Care. Dr. Eric and colleagues from Nephrology, Dr. Shaquille Romo from inpatient rehab. DISCHARGE MEDICATION: DISCHARGE MEDICATIONS: 1. Lipitor 40 mg a day. 2. Aspirin 81 mg a day. 3. Promacta 50 mg a day to be held until follow up with Hematology. 4. Nitrostat 0.4 sublingual q.5 p.r.n. 5. 2.5 mg p.o. daily. 6. Zofran 4 mg q.12h p.r.n. 7. Coreg 3.125 p.o. b.i.d. 8. Lasix 40 mg b.i.d. 9. NovoLog per scale. 10.Accu-Cheks a.c. and at bedtime. 11.DuoNeb b.i.d. 12.Zestril 2.5 p.o. daily. 13.Sodium bicarb 650 mg p.o. daily. 14.Aldactone 25 mg a day. 15.Brilinta 90 mg p.o. b.i.d. DISPOSITION: [facility]. Follow up with Dr. Eric in 1 week. Follow up with Dr. Amin. Follow up with Dr. Stephens in 1 week to re-evaluate the patient for Promacta. Follow up with his featherer in 1 week. Labs CBC BMP in 1 week. Discussion discharge planning more than 35 minutes. MMSHOLAL / TERRYN: [id number] /
[2018-08-24] MEDS ORDERED: SODIUM BICARBONATE TAB 650 MG TAB PO SCH (09:00)
== END 2018-08-23 16:36 | DRG 270 ==
LOC: EC 20:25 → 2SICU 22:42 → 3SCARD 08-18 04:25
PROVIDERS: ADMIT Hospitalist; ATTEND Hospitalist
PROC: 3E043XZ Introduction of Vasopressor into Central Vein, Percutaneous Approach (ICD-10-PCS; 2018-08-10)
PROC: 4A023N7 Measurement of Cardiac Sampling and Pressure, Left Heart, Percutaneous Approach (ICD-10-PCS; 2018-08-10)
PROC: B2111ZZ Fluoroscopy of Multiple Coronary Arteries using Low Osmolar Contrast (ICD-10-PCS; 2018-08-10)
PROC: 02HV33Z Insertion of Infusion Device into Superior Vena Cava, Percutaneous Approach (ICD-10-PCS; 2018-08-11)
PROC: 5A02210 Assistance with Cardiac Output using Balloon Pump, Continuous (ICD-10-PCS; principal; 2018-08-11 09:00)
PROC: 027034Z Dilation of Coronary Artery, One Artery with Drug-eluting Intraluminal Device, Percutaneous Approach (ICD-10-PCS; 2018-08-11 09:00)
PROC: 03HY32Z Insertion of Monitoring Device into Upper Artery, Percutaneous Approach (ICD-10-PCS; 2018-08-11 09:00)
DX: T82.855A Stenosis of coronary artery stent, initial encounter (principal); I21.4 Non-ST elevation (NSTEMI) myocardial infarction; N17.0 Acute kidney failure with tubular necrosis; I50.21 Acute systolic (congestive) heart failure; R57.0 Cardiogenic shock; J18.9 Pneumonia, unspecified organism; J96.01 Acute respiratory failure with hypoxia; D69.3 Immune thrombocytopenic purpura; E87.2 Acidosis; I13.0 Hypertensive heart and chronic kidney disease with heart failure and stage 1 through stage 4 chronic kidney disease, or unspecified chronic kidney disease; D62 Acute posthemorrhagic anemia; J44.0 Chronic obstructive pulmonary disease with (acute) lower respiratory infection; I25.10 Atherosclerotic heart disease of native coronary artery without angina pectoris; Z95.5 Presence of coronary angioplasty implant and graft; K57.30 Diverticulosis of large intestine without perforation or abscess without bleeding; Z68.33 Body mass index [BMI] 33.0-33.9, adult; E66.9 Obesity, unspecified; N14.1 Nephropathy induced by other drugs, medicaments and biological substances; T50.8X5A Adverse effect of diagnostic agents, initial encounter; E87.5 Hyperkalemia; Z95.810 Presence of automatic (implantable) cardiac defibrillator; M47.9 Spondylosis, unspecified; Z92.3 Personal history of irradiation; Z85.46 Personal history of malignant neoplasm of prostate; I99.8 Other disorder of circulatory system; Z90.49 Acquired absence of other specified parts of digestive tract; Z79.02 Long term (current) use of antithrombotics/antiplatelets; Z79.82 Long term (current) use of aspirin; Z79.891 Long term (current) use of opiate analgesic; Z79.899 Other long term (current) drug therapy; I25.2 Old myocardial infarction; Z79.84 Long term (current) use of oral hypoglycemic drugs; Z82.49 Family history of ischemic heart disease and other diseases of the circulatory system; Z82.3 Family history of stroke; E11.22 Type 2 diabetes mellitus with diabetic chronic kidney disease; D63.1 Anemia in chronic kidney disease; E78.5 Hyperlipidemia, unspecified; N18.3 Chronic kidney disease, stage 3 (moderate); I77.1 Stricture of artery; I25.82 Chronic total occlusion of coronary artery; I25.5 Ischemic cardiomyopathy; Y83.8 Other surgical procedures as the cause of abnormal reaction of the patient, or of later complication, without mention of misadventure at the time of the procedure; M19.90 Unspecified osteoarthritis, unspecified site; E83.42 Hypomagnesemia; E86.0 Dehydration; I48.91 Unspecified atrial fibrillation; K52.9 Noninfective gastroenteritis and colitis, unspecified; R04.0 Epistaxis; T50.2X5A Adverse effect of carbonic-anhydrase inhibitors, benzothiadiazides and other diuretics, initial encounter; Z86.79 Personal history of other diseases of the circulatory system; Z87.891 Personal history of nicotine dependence
CPT/HCPCS: 33967; 36415; 36569; 71045; 71046; 76937; 80048; 80053; 80076; 81001; 81003; 82150; 82550; 82553; 82728; 82805; 83036; 83540; 83550; 83690; 83735; 84100; 84132; 84484; 85025; 85027; 85347; 85610; 85730; 87040; 87070; 87086; 87205; 87324; 93005; 93306; 93308; 93454; 94640; 94760; 96361; 96365; 96375; 96376; 99285; C1874

== ENCOUNTER 2018-08-31 14:57 | Inpatient (IN) | payer MEDICARE, BC, OTHER ==
[2018-08-31] MEDS ORDERED: SODIUM CHLORIDE 0.9% 1,000 ML IV STA ×4 (15:22→16:58)
--- NOTE | 2018-08-31 15:34 | ED ---
Nausea/Vomiting/Diarrhea HPI - General Chief complaint: Nausea/Vomiting/Diarrhea Stated complaint: diarrhea Time Seen by Provider: 08/31/18 15:10 Source: patient, EMS, RN notes reviewed, old records reviewed Mode of arrival: EMS Limitations: no limitations - History of Present Illness Initial comments: This is a 73-year-old male who was sent in for evaluation because of fever and diarrhea. He did recently have an episode of a non-STEMI and was treated and released. Today he was noted have a relatively low pulse oximetry diarrhea. Is also noted be lethargic. His temperature 100.0 that is reported. He had an 80% saturation on room air up to 90% 3 L. On arrival here this pulse ox was adequate. No nausea vomiting no other symptoms. MD complaint: diarrhea - Related Data Home Medications Medication Instructions Recorded Confirmed Atorvastatin [Lipitor] 40 mg PO HS 04/22/16 08/31/18 Aspirin 81 mg PO HS 10/30/17 08/31/18 Eltrombopag Olamine [Promacta] 50 mg PO DIRECTED 10/30/17 08/31/18 Nitroglycerin Sl Tabs [Nitrostat] 0.4 mg SUBLINGUAL Q5M PRN 10/30/17 08/31/18 Acetaminophen Tab [Tylenol Tab] 650 mg PO Q6H PRN 08/31/18 08/31/18 Fluticasone Nasal [place] [Flonase 2 spr EA NOSTRIL DAILY 08/31/18 08/31/18 Nasal [place]] Insulin Aspart [NovoLOG See Protocol SQ ACHS 08/31/18 08/31/18 (formulary)] Magnesium Oxide 400 mg PO HS 08/31/18 08/31/18 Melatonin 3 mg PO HS 08/31/18 08/31/18 Menthol [Biofreeze] 1 applic TOPICAL TID PRN 08/31/18 08/31/18 Phenylephrine HCl [Sudafed PE] 10 mg PO BID 08/31/18 08/31/18 Promethazine Solution 12.5 mg IM Q8H PRN 08/31/18 08/31/18 Saxagliptin HCl [Onglyza] 5 mg PO DAILY 08/31/18 08/31/18 Previous Rx's Medication Instructions Recorded Carvedilol [Coreg] 3.125 mg PO BID-W/MEALS tab 08/23/18 Furosemide [Lasix] 40 mg PO BID@0900,1600 tab 08/23/18 Ipratropium-Albuterol Nebulize 3 ml INHALATION RT-BID ampul.neb 08/23/18 [Duoneb 0.5 mg-3 mg/3 ml Soln] Lisinopril [Zestril] 2.5 mg PO DAILY tab 08/23/18 Sodium Bicarbonate Tab 650 mg PO DAILY tab 08/23/18 Spironolactone [Aldactone] 25 mg PO DAILY tab 08/23/18 Ticagrelor [Brilinta] 90 mg PO BID tab 08/23/18 Allergies Allergy/AdvReac Type Severity Reaction Status Date / Time No Known Allergies Allergy Verified 08/31/18 15:15 Review of Systems ROS Statement: Those systems with pertinent positive or pertinent negative responses have been documented in the HPI. ROS Other: All systems not noted in ROS Statement are negative. Past Medical History Past Medical History: Blood Disorder, Coronary Artery Disease (CAD), Cancer, Chest Pain / Angina, Myocardial Infarction ([place]), Musculoskeletal Disorder Additional Past Medical History / Comment(s): DDD. Prostate Cancer, last radiation treatment April 15, 2015. ITP, SEES DR CLARKE HACKBERRY, DR MALIK. V- tach. Last Myocardial Infarction Date:: 06/16/2015 History of Any Multi-Drug Resistant Organisms: None Reported Past Surgical History: AICD, Appendectomy, Cholecystectomy, Heart Catheterization With Stent, Pacemaker Additional Past Surgical History / Comment(s): Stent to the LAD 06/16/2015. CARDIOVERSION; AICD 04/26/16, [employer]. Defibrillator placement Past Anesthesia/Blood Transfusion Reactions: No Reported Reaction Date of Last Stent Placement:: 06/16/2015 Type of Cardiac Device: AICD Device Placement Date:: 04/26/16 Past Psychological History: No Psychological Hx Reported Smoking Status: Former smoker Past Alcohol Use History: Rare Past Drug Use History: None Reported - Past Family History Mother Family Medical History: CVA/TIA, Hypertension Father Family Medical History: No Reported History General Exam - General Exam Comments Initial Comments: This is a 73-year-old male who is awake alert but lethargic. He was noted have multiple PVCs and runs of V. tach on the monitor. Limitations: no limitations General appearance: alert, in no apparent distress Head exam: Present: atraumatic, normocephalic, normal inspection Eye exam: Present: normal appearance, PERRL, EOMI. Absent: scleral icterus, conjunctival injection, periorbital swelling ENT exam: Present: mucous membranes dry Neck exam: Present: normal inspection. Absent: tenderness, meningismus, lymphadenopathy Respiratory exam: Present: normal lung sounds bilaterally. Absent: respiratory distress, wheezes, rales, rhonchi, stridor Cardiovascular Exam: Present: regular rate, normal rhythm, normal heart sounds. Absent: systolic murmur, diastolic murmur, rubs, gallop, clicks GI/Abdominal exam: Present: soft, normal bowel sounds. Absent: distended, tenderness, guarding, rebound, rigid Extremities exam: Present: normal inspection, full ROM, normal capillary refill. Absent: tenderness, pedal edema, joint swelling, calf tenderness Back exam: Present: normal inspection Neurological exam: Present: alert, oriented X3, CN II-XII intact Psychiatric exam: Present: normal mood, flat affect Skin exam: Present: warm, dry, intact, pallor. Absent: rash Course Vital Signs 08/31/18 08/31/18 08/31/18 15:01 15:25 15:35 Temperature 97.3 F L Pulse Rate 80 80 79 Respiratory 16 25 H 28 H Rate Blood Pressure 76/43 69/45 77/45 O2 Sat by Pulse 99 99 99 Oximetry 08/31/18 16:30 Temperature Pulse Rate 81 Respiratory 13 Rate Blood Pressure 72/30 O2 Sat by Pulse 95 Oximetry - Reevaluation(s) Reevaluation #1: 08/31/18 15:36 Patient EKG done initially showed a [employer] pacemaker rhythm a repeat was performed showing demand pacemaker with occasional wide QRS complex PVCs right bundle-branch block rate was 83 QRS 188 QT since QTC is 502/589 Reevaluation #2: 08/31/18 16:46 Patient is improved after IV hydration his blood pressure is improved. Medical Decision Making - Medical Decision Making I did discuss findings with the patient with Dr. Warren. Patient does have evidence of acute renal failure hypotensive episode leukocytosis he did have a fever though no source is identified this time. Lactic acid was elevated however this is likely on the basis of renal failure and find depletion. He also does demonstrate marked leukocytosis. As a precaution was given IV antibiotics in addition to the fluids. He will be admitted with consultation by nephrology. He also does demonstrate hypomagnesemia he was given supplementation. - Lab Data Result diagrams: 08/31/18 15:15 08/31/18 15:15 Lab Results 08/31/18 08/31/18 08/31/18 Range/Units 15:15 15:15 15:15 WBC 43.7 H (3.8-10.6) k/uL RBC 2.94 L (4.30-5.90) m/uL Hgb 8.3 L (13.0-17.5) gm/dL Hct 26.8 L (39.0-53.0) % MCV 91.1 (80.0-100.0) fL MCH 28.1 (25.0-35.0) pg MCHC 30.8 L (31.0-37.0) g/dL RDW 22.4 H (11.5-15.5) % Plt Count 303 (150-450) k/uL Neutrophils % (Manual) 57 % Band Neutrophils % 2 % Lymphocytes % (Manual) 4 % Monocytes % (Manual) 39 % Neutrophils # (Manual) 25.70 H (1.3-7.7) k/uL Lymphocytes # (Manual) 1.75 (1.0-4.8) k/uL Monocytes # (Manual) 17.04 H (0-1.0) k/uL Nucleated RBCs 0 (0-0) /100 WBC Manual Slide Review Performed Toxic Vacuolation Present Large Platelets Present Polychromasia Present Hypochromasia Marked Poikilocytosis Slight Poikilocytosis (manual Present Anisocytosis Moderate Macrocytosis Slight Sodium 138 (137-145) mmol/L Potassium 4.3 (3.5-5.1) mmol/L Chloride 101 (98-107) mmol/L Carbon Dioxide 21 L (22-30) mmol/L Anion Gap 16 mmol/L BUN 42 H (9-20) mg/dL Creatinine 4.59 H (0.66-1.25) mg/dL Est GFR (CKD-EPI)AfAm 14 (>60 ml/min/1.73 sqM) Est GFR (CKD-EPI)NonAf 12 (>60 ml/min/1.73 sqM) Glucose 179 H (74-99) mg/dL Plasma Lactic Acid [place] (0.7-2.0) mmol/L Calcium 8.6 (8.4-10.2) mg/dL Magnesium 1.4 L (1.6-2.3) mg/dL Total Bilirubin 1.3 (0.2-1.3) mg/dL AST 29 (17-59) U/L ALT 25 (21-72) U/L Alkaline Phosphatase 61 (38-126) U/L Total Creatine Kinase 175 H (55-170) U/L CK-MB (CK-2) 0.8 (0.0-2.4) ng/mL CK-MB (CK-2) Rel Index 0.5 Troponin I 0.162 H* (0.000-0.034) ng/mL Total Protein 6.2 L (6.3-8.2) g/dL Albumin 3.5 (3.5-5.0) g/dL Amylase 66 (30-110) U/L Lipase 422 H (23-300) U/L 08/31/18 Range/Units 15:15 WBC (3.8-10.6) k/uL RBC (4.30-5.90) m/uL Hgb (13.0-17.5) gm/dL Hct (39.0-53.0) % MCV (80.0-100.0) fL MCH (25.0-35.0) pg MCHC (31.0-37.0) g/dL RDW (11.5-15.5) % Plt Count (150-450) k/uL Neutrophils % (Manual) % Band Neutrophils % % Lymphocytes % (Manual) % Monocytes % (Manual) % Neutrophils # (Manual) (1.3-7.7) k/uL Lymphocytes # (Manual) (1.0-4.8) k/uL Monocytes # (Manual) (0-1.0) k/uL Nucleated RBCs (0-0) /100 WBC Manual Slide Review Toxic Vacuolation Large Platelets Polychromasia Hypochromasia Poikilocytosis Poikilocytosis (manual Anisocytosis Macrocytosis Sodium (137-145) mmol/L Potassium (3.5-5.1) mmol/L Chloride (98-107) mmol/L Carbon Dioxide (22-30) mmol/L Anion Gap mmol/L BUN (9-20) mg/dL Creatinine (0.66-1.25) mg/dL Est GFR (CKD-EPI)AfAm (>60 ml/min/1.73 sqM) Est GFR (CKD-EPI)NonAf (>60 ml/min/1.73 sqM) Glucose (74-99) mg/dL Plasma Lactic Acid [place] 2.5 H* (0.7-2.0) mmol/L Calcium (8.4-10.2) mg/dL Magnesium (1.6-2.3) mg/dL Total Bilirubin (0.2-1.3) mg/dL AST (17-59) U/L ALT (21-72) U/L Alkaline Phosphatase (38-126) U/L Total Creatine Kinase (55-170) U/L CK-MB (CK-2) (0.0-2.4) ng/mL CK-MB (CK-2) Rel Index Troponin I (0.000-0.034) ng/mL Total Protein (6.3-8.2) g/dL Albumin (3.5-5.0) g/dL Amylase (30-110) U/L Lipase (23-300) U/L - EKG Data -: EKG Interpreted by Me (Pacemaker rhythm was 75 QRS 146 QT since QTC 472/527 this compares to ) - Radiology Data Radiology results: report reviewed (I did review the imaging and report evidence of cardiomegaly no other acute findings), image reviewed Critical Care Time Critical Care Time: Yes Critical Care Time: 37 minutes of critical care time which includes initial presentation with history physical labs x-rays several reevaluation of the patient response to therapy discussed with paramedics regarding the findings review of old charting discussed with the admitting physician admission orders and documentation of the above Disposition Clinical Impression: Acute renal failure (ARF), Lactic acidosis, Hypomagnesemia, Dehydration, Leukocytosis, Hypotensive episode, Elevated troponin, History of pacemaker Disposition: ADMITTED IP TO THIS [facility] Condition: Serious Referrals: Rolf Winston MD [Primary Care Provider] - 1-2 days
[2018-08-31 15:56] LABS: Albumin 3.5 g/dL (3.5-5.0); Calcium 8.6 mg/dL (8.4-10.2); Magnesium 1.4 mg/dL (1.6-2.3); Potassium 4.3 mmol/L (3.5-5.1); Total Bilirubin 1.3 mg/dL (0.2-1.3); Total Protein 6.2 g/dL (6.3-8.2)
--- NOTE | 2018-08-31 15:58 | XR ---
EXAMINATION TYPE: XR chest 2V DATE OF EXAM: 08/31/2018 COMPARISON: 08/19/2018 HISTORY: Shortness of breath TECHNIQUE: Frontal and lateral views of the chest are obtained. FINDINGS: Scattered senescent parenchymal changes noted. No evidence for infiltrate. No evidence for atelectasis. Cardiomegaly with pulmonary venous congestion. No evidence for overt failure. Mediastinal structures are stable and grossly unremarkable. No evidence for hilar prominence. Degenerative changes dorsal spine. IMPRESSION: 1. Cardiomegaly with pulmonary venous congestion. No evidence for overt failure.
[2018-08-31] MEDS ORDERED: ONDANSETRON 4 MG/2 ML VIAL IVP STA (16:01)
[2018-08-31 16:08] LABS: Anisocytosis Moderate; HCT 26.8 % (39.0-53.0); HGB 8.3 gm/dL (13.0-17.5); Hypochromasia Marked; MCH 28.1 pg (25.0-35.0); MCHC 30.8 g/dL (31.0-37.0); MCV 91.1 fL (80.0-100.0); Macrocytosis Slight; Mean Platelet Volume 10.7; Platelet Count 303 k/uL (150-450); Poikilocytosis Slight; RBC 2.94 m/uL (4.30-5.90); RDW 22.4 % (11.5-15.5)
[2018-08-31 16:10] LABS: Creatine Kinase MB 0.8 ng/mL (0.0-2.4)
[2018-08-31 16:12] LABS: Troponin I 0.162 ng/mL (0.000-0.034)
[2018-08-31 16:13] LABS: WBC 43.7 k/uL (3.8-10.6)
[2018-08-31] MEDS ORDERED: MAGNESIUM SULFATE-D5W PMX 1 GM in DEXTROSE/WATER 1 100ML.BAG IVPB ONE (16:19)
[2018-08-31 16:33] LABS: Band Neutrophils % 2 %; Lymphocytes # (M) 1.75 k/uL (1.0-4.8); Monocytes # (M) 17.04 k/uL (0-1.0); Neutrophils % (M) 57 %; Nucleated Red Blood Cells 0 /100 WBC (0-0); Total Cells Counted 200
[2018-08-31 16:34] LABS: Large Platelets Present; Polychromasia Present; Toxic Vacuolation Present
[2018-08-31 16:35] LABS: Poikilocytosis (M) Present
[2018-08-31] MEDS ORDERED: NALOXONE 0.4 MG/ML 1 ML VIAL IV PRN (16:49)
[2018-08-31] MEDS ORDERED: ONDANSETRON 4 MG/2 ML VIAL IVP PRN (16:49)
[2018-08-31] MEDS ORDERED: METHYL SALICYLATE/MENTHOL CREAM 5 OZ TOPICAL PRN (16:52)
[2018-08-31] MEDS ORDERED: NITROGLYCERIN SL TABS 0.4 MG TAB SUBLINGUAL PRN (16:52)
[2018-08-31] MEDS ORDERED: ACETAMINOPHEN TAB 325 MG TAB PO PRN (16:52)
[2018-08-31] MEDS ORDERED: CARVEDILOL 3.125 MG TAB PO SCH (17:30)
[2018-08-31] MEDS ORDERED: metroNIDAZOLE-NS PMX 500 MG in SALINE 1 100ML.BAG IVPB STA (19:25)
[2018-08-31 19:49] LABS: Glucose,Whole Blood 188 mg/dL (75-99)
[2018-08-31 19:50] LABS: Appearance,Urine Cloudy (Clear); Bacteria,Urine Occasional /hpf; Bilirubin,Urine Negative (Negative); Blood,Urine Trace (Negative); Color,Urine Light Red; Glucose,Urine (UA) 1+ (Negative); Ketones,Urine Negative (Negative); Leukocyte Esterase,Urine Negative (Negative); Nitrite,Urine Negative (Negative); Protein,Urine 3+ (Negative); Specific Gravity,Urine 1.016 (1.001-1.035); Urobilinogen,Urine <2.0 mg/dL (<2.0); WBC,Urine 24 /hpf (0-5)
[2018-08-31] MEDS: ELTROMBOPAG OLAMINE 50 MG PO SCH (19:55)
[2018-08-31] MEDS: SODIUM CHLORIDE 0.9% 1,000 ML IV SCH ×3 (19:55→22:23)
[2018-08-31] MEDS ORDERED: SODIUM CHLORIDE 0.9% 1,000 ML IV ONE (21:16)
--- NOTE | 2018-08-31 21:16 | P.CNPUL ---
History of Present Illness Consult date: 08/31/18 Chief complaint: Acute kidney injury, diarrhea, hypotension, leukocytosis History of present illness: This is a 73-year-old male patient with multiple medical positive comorbidities who was recently discharged from the hospital after being treated for an acute non-ST segment elevation myocardial infarction. The patient was transferred to [facility]. Noted the patient was admitted to the hospital on 08/10/2018 when acute non-ST segment elevation myocardial infarction. After a complex cardiac catheterization and stenting during which an intra-aortic balloon pump was inserted, the patient did well. The circumflex was stented. The intra- aortic balloon pump was removed. The pressors were weaned off and the patient was discharged to [facility] for further rehabilitation. Note that during the same hospital stay, the patient had developed an acute kidney injury related to hypotension and contrast nephropathy from which she recovered. He has congestion heart failure with systolic dysfunction and ejection fraction of 35-40%. He was treated with cardiogenic shock. Pneumonia was also suspected and he was given a course of antibiotics and to my recollection he was given IV Zosyn. He has an AICD in place. He has previous history of ITP, colonic diverticulosis, osteoarthritis and chronic anemia. Following his discharge, the patient was gradually rehabilitating and according to the family was doing well until around 3 days ago when he started having profuse watery diarrhea. The diarrhea was constant multiple episodes, liquidy diarrhea more than 10 episodes with some limited vague abdominal pain. Apparently the patient was unable to keep up with his oral intake and the patient became progressively more lethargic. He came into the emergency departmentthis afternoon with marked abnormalities. His white cell count was elevated at 43.7. His hemoglobin was at 8.3. He had acute kidney injury with a creatinine of 4.5 and a BUN of 42. His serum lactic acid level was at 2.5. Troponin was at 0.162. The patient was hypotensive with a systolic in the mid 70s. The patient was given a total of 3 L of IV fluids. Urine output remains minimal. In the ICU inserted triple lumen catheter and we are in the process of resuscitating this patient further. Stool for C. diff was sent and the results are still pending for now. Meanwhile the patient was given a dose of Rocephin and Flagyl. The patient's lipase was at 422. AST and ALT and bilirubin were all within normal limits with mild elevation of the bilirubin up to 1.3. Total protein was 6.2 with an albumin of 3.5. Amylase was 66. Chest x -ray did not show any acute abnormalities. Review of Systems Constitutional: Reports fatigue, Reports fever, Reports lethargy, Reports poor appetite, Reports weakness Eyes: denies blurred vision, denies bulging eye, denies decreased vision, denies diplopia Ears: deny: decreased hearing, ear discharge, earache, tinnitus Ears, nose, mouth and throat: Denies headache, Denies sore throat Cardiovascular: Reports decreased exercise tolerance, Reports dyspnea on exertion, Reports shortness of breath Respiratory: Reports dyspnea Gastrointestinal: Reports diarrhea Genitourinary: Reports as per HPI Musculoskeletal: Denies myalgias Musculoskeletal: absent: ankle pain, ankle stiffness, ankle swelling Integumentary: Denies pruritus, Denies rash Neurological: Reports as per HPI, Reports weakness Endocrine: Reports flushing Hematologic/Lymphatic: Reports as per HPI Allergic/Immunologic: Reports as per HPI Past Medical History Past Medical History: Blood Disorder, Coronary Artery Disease (CAD), Cancer, Chest Pain / Angina, Myocardial Infarction ([place]), Musculoskeletal Disorder Additional Past Medical History / Comment(s): Coronary artery disease, previous non-ST segment elevation myocardial infarction, recent hospitalization for cardiogenic shock, stenting of the circumflex artery, systolic heart failure with ejection fraction of 30-35%, prostate cancer with previous radiation therapy that he completed in March 2015, history of ITP, history of AICD placement, history of ventricular tachycardia, diabetes mellitus, ITP Last Myocardial Infarction Date:: 06/16/2015 History of Any Multi-Drug Resistant Organisms: None Reported Past Surgical History: AICD, Appendectomy, Cholecystectomy, Heart Catheterization With Stent, Pacemaker Additional Past Surgical History / Comment(s): Stent to the LAD 06/16/2015. CARDIOVERSION; AICD 04/26/16, [employer]. Defibrillator placement, insertion and removal of a intra-aortic balloon pump, cardiac catheterization and stenting of the circumflex in March 2018 Past Anesthesia/Blood Transfusion Reactions: No Reported Reaction Date of Last Stent Placement:: 06/16/2015 Type of Cardiac Device: AICD Device Placement Date:: 04/26/16 Past Psychological History: No Psychological Hx Reported Smoking Status: Former smoker Past Alcohol Use History: Rare Past Drug Use History: None Reported - Past Family History Mother Family Medical History: CVA/TIA, Hypertension Father Family Medical History: No Reported History Medications and Allergies Home Medications Medication Instructions Recorded Confirmed Type Atorvastatin [Lipitor] 40 mg PO HS 04/22/16 08/31/18 History Aspirin 81 mg PO HS 10/30/17 08/31/18 History Eltrombopag Olamine [Promacta] 50 mg PO DIRECTED 10/30/17 08/31/18 History Nitroglycerin Sl Tabs [Nitrostat] 0.4 mg SUBLINGUAL Q5M PRN 10/30/17 08/31/18 History Carvedilol [Coreg] 3.125 mg PO BID-W/MEALS tab 08/23/18 08/31/18 Rx Furosemide [Lasix] 40 mg PO BID@0900,1600 tab 08/23/18 08/31/18 Rx Ipratropium-Albuterol Nebulize 3 ml INHALATION RT-BID ampul.neb 08/23/18 Rx [Duoneb 0.5 mg-3 mg/3 ml Soln] Lisinopril [Zestril] 2.5 mg PO DAILY tab 08/23/18 08/31/18 Rx Sodium Bicarbonate Tab 650 mg PO DAILY tab 08/23/18 08/31/18 Rx Spironolactone [Aldactone] 25 mg PO DAILY tab 08/23/18 08/31/18 Rx Ticagrelor [Brilinta] 90 mg PO BID tab 08/23/18 08/31/18 Rx Acetaminophen Tab [Tylenol Tab] 650 mg PO Q6H PRN 08/31/18 08/31/18 History Fluticasone Nasal [place] [Flonase 2 spr EA NOSTRIL DAILY 08/31/18 08/31/18 History Nasal [place]] Insulin Aspart [NovoLOG See Protocol SQ ACHS 08/31/18 08/31/18 History (formulary)] Magnesium Oxide 400 mg PO HS 08/31/18 08/31/18 History Melatonin 3 mg PO HS 08/31/18 08/31/18 History Menthol [Biofreeze] 1 applic TOPICAL TID PRN 08/31/18 08/31/18 History Phenylephrine HCl [Sudafed PE] 10 mg PO BID 08/31/18 08/31/18 History Promethazine Solution 12.5 mg IM Q8H PRN 08/31/18 08/31/18 History Saxagliptin HCl [Onglyza] 5 mg PO DAILY 08/31/18 08/31/18 History Allergies Allergy/AdvReac Type Severity Reaction Status Date / Time No Known Allergies Allergy Verified 08/31/18 15:15 Physical Exam Vitals: Vital Signs Temp Pulse Resp BP Pulse Ox 08/31/18 19:14 98.4 F 71 19 85/45 98 08/31/18 18:30 79 16 67/33 97 08/31/18 18:00 73 24 92/41 98 08/31/18 17:30 70 26 H 111/90 98 08/31/18 17:21 70 18 111/90 95 08/31/18 17:00 66 13 83/46 98 08/31/18 16:30 81 13 72/30 95 08/31/18 15:35 79 28 H 77/45 99 08/31/18 15:25 80 25 H 69/45 99 08/31/18 15:01 97.3 F L 80 16 76/43 99 Intake and Output 08/31/18 08/31/18 08/31/18 06:59 14:59 22:59 Output Total 50 Balance -50 Output: Urine 50 Uretheral (Rehman) 50 Other: # Bowel Movements 1 Weight 106.141 kg GENERAL EXAM: Alert, pleasant, 73-year-old obese white male comfortable in no apparent distress. The patient is resting comfortably in bed on oxygen at 3 L per minute nasal cannula. HEAD: Normocephalic/atraumatic. EYES: Normal reaction of pupils, equal size. Conjunctiva pink, sclera white. NOSE: Clear with pink turbinates. THROAT: No erythema or exudates. NECK: No masses, no JVD, no thyroid enlargement, no adenopathy. The patient also has a triple lumen catheter in the right IJ. CHEST: No chest wall deformity. Symmetrical expansion. LUNGS: Breath sounds are diminished bilaterally and the lungs are clear without any significant crackling at this point in time. CVS: Irregular rate and rhythm, normal S1 and S2, no gallops, no murmurs, no rubs, the patient has occasional paced rhythm and the rhythm is somewhat irregular at this point in time. ABDOMEN: Soft, nontender. No hepatosplenomegaly, normal bowel sounds, no guarding or rigidity. EXTREMITIES: No clubbing, no edema, no cyanosis, diminished pulses and upper and lower extremities. MUSCULOSKELETAL: Muscle strength and tone normal. SPINE: No scoliosis or deformity SKIN: No rashes CENTRAL NERVOUS SYSTEM: Alert and oriented -3. No focal deficits, tone is normal in all 4 extremities. PSYCHIATRIC: Alert and oriented -3. Appropriate affect. Intact judgment and insight. Results - Laboratory Findings CBC and BMP: 08/31/18 15:15 08/31/18 15:15 Abnormal lab findings: Abnormal Labs 08/31/18 08/31/18 08/31/18 15:15 15:15 15:15 WBC 43.7 H RBC 2.94 L Hgb 8.3 L Hct 26.8 L MCHC 30.8 L RDW 22.4 H Neutrophils # (Manual) 25.70 H Monocytes # (Manual) 17.04 H Carbon Dioxide 21 L BUN 42 H Creatinine 4.59 H Glucose 179 H POC Glucose (mg/dL) Plasma Lactic Acid Geov[place] Magnesium 1.4 L Total Creatine Kinase 175 H Troponin I 0.162 H* Total Protein 6.2 L Lipase 422 H Urine Protein Urine Glucose (UA) Urine Blood Urine WBC Urine Bacteria 08/31/18 08/31/18 08/31/18 15:15 19:00 19:48 WBC RBC Hgb Hct MCHC RDW Neutrophils # (Manual) Monocytes # (Manual) Carbon Dioxide BUN Creatinine Glucose POC Glucose (mg/dL) 188 H Plasma Lactic Acid Geovany 2.5 H* Magnesium Total Creatine Kinase Troponin I Total Protein Lipase Urine Protein 3+ H Urine Glucose (UA) 1+ H Urine Blood Trace H Urine WBC 24 H Urine Bacteria Occasional H - Diagnostic Findings Chest x-ray: image reviewed Assessment and Plan Plan: Assessment 1 diffuse diarrhea with intravascular volume depletion, dehydration and some vague limited abdominal pain. Rule out underlying C. diff colitis 90 the patient was hospitalized and the patient was treated with antibiotics during an earlier hospital stay. Rule out ischemic colitis. 2 acute leukocytosis, currently under investigation. 3 mild lactic acidosis 4 acute kidney injury secondary to intravascular volume depletion. Patient is oliguric at this point in time. 5 history of coronary artery disease with previous non-ST segment elevation myocardial infarction requiring emergent cardiac catheterization and stenting of the circumflex 6 previous history of cardiogenic shock post cardiac catheterization and insertion of a stent. The patient was supported by intra-aortic balloon pump is pressors back in March 2018 7 congestion heart failure with ischemic cardiomyopathy and ejection fraction of 30-35%. The patient has an AICD in place 8 diabetes mellitus type 2 9 COPD 10 previous history of ITP 11 chronic anemia with a hemoglobin of 8.3 12 elevation of lipase, pancreatitis is doubtful. Plan The patient will be admitted to the intensive care unit. The triple-lumen catheter was threaded into the right IJ and the CVP were monitored. The patient will be given additional 2 L of fluids in the form of normal saline on top of 3 L that was given to him in the emergency department. Continue maintenance of 100 mL an hour of normal saline. Obtain a CAT scan of the abdomen, noncontrast. Obtain stool for C. diff. Obtain blood cultures. Cover the patient empirically with a combination of Rocephin and Flagyl for now. Monitor the white cell count. Monitor the fever pattern. Use pressors if needed and the choice of present be levo fed. Hold Coreg for now to the blood pressures under better control. Hold Aldactone. Continue aspirin. Continue Brilinta. DVT and GI prophylaxis. Condition is critical. We'll consult cardiology. We'll also continue to follow up this patient make further recommendations based on his progress.
--- NOTE | 2018-08-31 21:30 | XR ---
EXAMINATION TYPE: XR chest 1V portable DATE OF EXAM: 08/31/2018 COMPARISON: Today HISTORY: Central line placement TECHNIQUE: Single frontal view of the chest is obtained. FINDINGS: There is right jugular catheter with the tip in the superior vena cava. No pneumothorax. T here is no heart failure. Heart size is normal. There is left axillary pacemaker with the lead tips i n the right ventricle. There is no pulmonary consolidation. IMPRESSION: Catheter appears in good position. No heart failure.
[2018-08-31] MEDS: ASPIRIN 81 MG PO SCH (22:15)
[2018-08-31] MEDS: TICAGRELOR 90 MG TAB PO SCH (22:16)
[2018-08-31] MEDS: ATORVASTATIN 40 MG TAB PO SCH (22:16)
[2018-08-31] MEDS: MELATONIN 3 MG TABLET PO SCH (22:16)
[2018-08-31] MEDS: MAGNESIUM OXIDE 400 MG TAB PO SCH (22:16)
[2018-08-31] MEDS: PANTOPRAZOLE 40 MG/10 ML VIAL IVP SCH (22:19)
[2018-08-31] MEDS: NOREPINEPHRINE 16 MG in SODIUM CHLORIDE 0.9% 250 ML IV SCH (22:51)
[2018-08-31] MEDS: IOPAMIDOL-300 CONTRAST 30 ML VIAL (ORAL USE) PO PRN (23:20)
--- NOTE | 2018-08-31 23:30 | HP ---
HISTORY AND PHYSICAL DATE OF ADMISSION: 08/31/2018 PRESENTING COMPLAINT: Weak, tired, diarrhea. HISTORY OF PRESENTING COMPLAINT: This is a 73-year-old patient who was in the hospital from 08/10/2018 through 08/23/2018. The patient had presented then with acute myocardial infarction and had a stent placed to the circumflex. Patient previously had a stent placed in April of 2018. Subsequently patient had gone into cardiogenic shock and had required intra- aortic balloon pump and pressors. Patient was also treated for for pneumonia, also found to have congestive heart failure exacerbation with EF of 35% to 40%. Patient also had acute kidney injury felt to be acute tubular necrosis and with the combination of both hypotension and contrast nephropathy. Patient also has an AICD. Patient's creatinine was 1.43 when he had left and hemoglobin was 8.7. Patient went to [facility]. Patient also had been on Promacta for his ITP. Patient there was doing fine, tolerating his diet. He was walking. Then for last 4 days the patient started having multiple loose stools up to 10 times a day, watery, no blood. There was questionable fever. No abdominal pain. Apparently tired and rundown. Appetite really went down. Patient presented to the ER. This time around, patient's blood pressure had dropped as low as 60s systolic. Also patient was found to be in acute renal failure with creatinine jumping up to 4.59, and lactic acidosis. The patient was admitted to the ICU, started on IV fluids, Levophed drip, and driving teacher Dr. Yi was consulted. So was Nephrology. REVIEW OF SYSTEMS: CONSTITUTIONAL: Tired. HEENT: None. RESPIRATORY: Some shortness of breath. CARDIOVASCULAR: No chest pain. GASTROINTESTINAL: As above. GENITOURINARY: Has a Rehman catheter. MUSCULOSKELETAL: Some pain in the joints. DERMATOLOGICAL: None. HEMATOLOGICAL: None. LYMPHATICS: None. PSYCHIATRY: Feeling a bit low. NEUROLOGICAL: None. PAST MEDICAL HISTORY: 1. Acute myocardial infarction on 08/10/2018. 2. Coronary artery disease with stent to the circumflex and a stent in April 2018. 3. AICD. 4. ITP. 5. Colonic diverticulosis. 6. Primary osteoarthritis. 7. Acute kidney injury recently from contrast nephropathy. 8. Normocytic anemia. 9. CHF from systolic dysfunction. 10.Cardiogenic shock. 11.Septic shock. 12.AICD placement. PAST SURGICAL HISTORY: 1. AICD. 2. Appendectomy. 3. Cholecystectomy. 4. Cardiac cath with stent. 5. Pacemaker. 6. Stent to LAD in 2014. 7. Cardioversion. 8. AICD defibrillator. 9. Intra-aortic balloon pump placement. 10.Stent to the circumflex in March of 2018. SOCIAL HISTORY: Patient stopped smoking in 1973. Smokes rarely. Alcohol rarely. FAMILY HISTORY: Reviewed; non-contributory to presentation. HOME MEDICATIONS: 1. Brilinta 90 mg b.i.d. 2. Aldactone 25 mg a day. 3. Sodium bicarb 650 mg p.o. daily. 4. Onglyza 5 mg p.o. daily. 5. Promethazine 12.5 q.8 p.r.n. 6. Sudafed PE 10 mg p.o. b.i.d. 7. Nitrostat 0.4 sublingually q.5 p.r.n. 8. Biofreeze 1 application topically t.i.d. p.r.n. 9. Melatonin 3 mg at bedtime. 10.Magnesium oxide 400 mg at bedtime. 11.Zestril 2.5 mg p.o. daily. 12.DuoNeb b.i.d. 13.Lasix 40 mg b.i.d. 14.Flonase. 15.Promacta 50 mg p.o. as directed. 16.Coreg 3.125 p.o. b.i.d. 17.Lipitor 40 mg at bedtime. 18.Aspirin 81 mg p.o. at bedtime. 19.Tylenol p.r.n. ALLERGIES: NONE. PHYSICAL EXAMINATION: VITAL SIGNS ON PRESENTATION: Temperature 97.3, pulse 80, respiration 16, blood pressure down to 69/45, pulse ox 99% on 2 L. GENERAL APPEARANCE: Well built. BMI 37.1. Lying in bed, very tired-appearing. EYES: Pupils equal. Conjunctivae pale. HEENT: External appearance of nose and ears normal. Oral cavity with poor dental hygiene. Dry mouth. NECK: JVD unable to assess. Mass not palpable. RESPIRATORY: Effort normal. LUNGS: Fair air entry. CARDIOVASCULAR: First and second sounds normal. No edema. ABDOMEN: Soft, non-tender. Liver and spleen not palpable. LYMPHATIC: No lymph node palpable in neck or axillae. PSYCHIATRY: Alert and oriented x3. Mood and affect tired-appearing. NEUROLOGICAL: Pupils equal. Cranial nerves grossly intact. Power and sensation grossly intact. INVESTIGATIONS: Blood work reviewed in the context of the clinical picture. White count 43.7, hemoglobin 8.3, platelets 303, potassium 4.3, BUN 42, creatinine 4.59. Lactic acid 2.5. Troponin 0.162. Patient's BUN and creatinine were 18 and 1.43 on 08/23/2018. Hemoglobin was 8.7. Chest x-ray film, personally reviewed by me, shows some cardiomegaly; lung owen otherwise clear. EKG tracing, personally reviewed by me, shows paced rhythm. ASSESSMENT: 1. Acute severe diarrhea in the setting of hospital, most likely Clostridium difficile. Initial C difficile EIA was negative. Will send off C difficile for PCR. 2. Acute renal failure, nonoliguric, likely a combination of prerenal from diarrhea and acute tubular necrosis from medications, including BACILIO inhibitor, diuretics. 3. Coronary artery disease with stents to the circumflex and left anterior descending coronary artery. 4. Automated implantable cardioverter defibrillator. 5. Idiopathic thrombocytopenic purpura, for which patient is on Promacta. 6. Colonic diverticulosis, asymptomatic. 7. Primary osteoarthritis in the lower back. 8. Obesity; body mass index more than 30. 9. Chronic congestive heart failure from systolic dysfunction, ejection fraction 35% to 40%, from underlying coronary artery disease. PLAN: Patient's home medications will be resumed. Will hold off patient's renal-offensive drugs, including diuretics, BACILIO inhibitor. Other cardiac medications are to be resumed. Empirically patient has been put on Flagyl. Repeat stool will be sent off for C difficile for PCR. Consultation was made to driving teacher, Dr. Yi, and also Nephrology. Will also consult Cardiology for the recent cardiac history. Patient remains in the ICU. He is also getting IV fluids, Levophed. Prognosis is guarded. MMODL / IJN: [id number] /
[2018-09-01] MEDS: IOPAMIDOL-300 CONTRAST 30 ML VIAL (ORAL USE) PO PRN (00:32)
[2018-09-01] MEDS: HEPARIN SODIUM,PORCINE 5,000 UNIT/ML 1 ML VIAL SQ SCH ×4 (00:35→23:47)
[2018-09-01] MEDS: metroNIDAZOLE-NS PMX 500 MG in SALINE 1 100ML.BAG IVPB SCH ×5 (00:36→23:48)
--- NOTE | 2018-09-01 02:37 | CT ---
EXAMINATION TYPE: CT abdomen pelvis wo con DATE OF EXAM: 09/01/2018 COMPARISON: None HISTORY: DIARRHEA CT DLP: 1297.4 mGycm Automated exposure control for dose reduction was used. TECHNIQUE: Helical acquisition of images was performed from the lung bases through the pelvis. FINDINGS: There is oral contrast. There are bilateral pleural effusions. There are pacemaker wires in the heart. There is some infiltra te and atelectasis at the lung bases. Heart appears slightly enlarged. Stomach appears normal. Liver shows no focal defect. Spleen appears normal. There is no evidence of a pancreatic mass. The bile ducts are not dilated. Gallbladder is absent. There are surgical clips. There is no adrenal mass. Kidneys have normal size. There is no hydronephrosis. Ureters are not dilat ed. Abdominal aorta is atheromatous. There is no retroperitoneal adenopathy. There is Rehman catheter in the urinary bladder. There is no free fluid in the pelvis. Appendix is not seen. There is no sign of appendicitis. There is no evidence of a bowel obstruction. There is no free air. I see no mesenter ic edema or adenopathy. There is no inguinal hernia. There is some spondylotic changes in the lumbar spine. I see no bony destructive process. There is stenosis at several levels of the lumbar spine. Th ere is minimal aneurysm of the lower abdominal aorta that measures 2.9 cm. IMPRESSION: NO SIGN OF ACUTE ABDOMEN AND PELVIS. ATHEROSCLEROTIC VASCULAR DISEASE. THERE IS PERINEPHRIC BILATERAL STRANDING THAT COULD RELATE TO PREVIOUS EPISODE OF OBSTRUCTION. NO OBSTRUCTION SEEN ON THIS EXAM. Bilateral pleural effusions with basilar atelectasis. .
[2018-09-01] MEDS: SODIUM CHLORIDE 0.9% 1,000 ML IV SCH ×2 (03:12→12:07)
[2018-09-01 04:37] LABS: Anisocytosis Moderate; HCT 26.9 % (39.0-53.0); HGB 8.1 gm/dL (13.0-17.5); Hypochromasia Marked; MCH 28.2 pg (25.0-35.0); MCV 93.8 fL (80.0-100.0); Macrocytosis Slight; Mean Platelet Volume 10.8; Platelet Count 325 k/uL (150-450); Poikilocytosis Slight; RBC 2.87 m/uL (4.30-5.90); RDW 22.1 % (11.5-15.5); WBC 38.9 k/uL (3.8-10.6)
[2018-09-01 04:45] LABS: INR 1.3 (<1.2); Prothrombin Time 12.7 sec (9.0-12.0)
[2018-09-01 04:49] LABS: Albumin 3.1 g/dL (3.5-5.0); Calcium 7.4 mg/dL (8.4-10.2); Magnesium 1.5 mg/dL (1.6-2.3); Phosphorus 6.5 mg/dL (2.5-4.5); Total Bilirubin 0.7 mg/dL (0.2-1.3); Total Protein 5.6 g/dL (6.3-8.2)
[2018-09-01 05:15] LABS: Band Neutrophils % 13 %; Lymphocytes # (M) 3.89 k/uL (1.0-4.8); Monocytes # (M) 6.61 k/uL (0-1.0); Myelocytes # (M) 0.78 k/uL (0); Myelocytes % 2 %; Neutrophils % (M) 59 %; Nucleated Red Blood Cells 0 /100 WBC (0-0); Total Cells Counted 200
[2018-09-01 05:16] LABS: Large Platelets Present; Polychromasia Present
[2018-09-01] MEDS ORDERED: MAGNESIUM SULFATE-D5W PMX 1 GM in DEXTROSE/WATER 1 100ML.BAG IVPB ONE (07:00)
[2018-09-01] MEDS ORDERED: SPIRONOLACTONE 25 MG TAB PO SCH (09:00)
[2018-09-01] MEDS ORDERED: SODIUM BICARBONATE TAB 650 MG TAB PO SCH (09:00)
[2018-09-01] MEDS: FLUTICASONE 50MCG/SPRAY NASAL 16GM EA NOSTRIL SCH (09:03)
[2018-09-01] MEDS: PANTOPRAZOLE 40 MG/10 ML VIAL IVP SCH (09:03)
[2018-09-01] MEDS: LINAGLIPTIN 5 MG TABLET PO SCH (09:03)
--- NOTE | 2018-09-01 09:03 | PCN ---
PROCEDURE NOTE TRIPLE LUMEN CATHETER PLACEMENT: Indication Hemodynamic monitoring/Intravenous access. A time-out was completed verifying correct patient, procedure, site, positioning, and implant(s) or special equipment if applicable. The patient was placed in a dependent position appropriate for triple lumen catheter placement based on the vein to be cannulated. The patient's right neck was prepped and draped in sterile fashion. 1% Lidocaine was used to anesthetize the surrounding skin area. A triple lumen 9F Cordis catheter was introduced into the right internal jugular vein using Seldinger technique. The catheter was threaded smoothly over the guide wire and appropriate blood return was obtained. Each lumen of the catheter was evacuated of air and flushed with sterile saline. The catheter was then sutured in place to the skin and a sterile dressing applied. Perfusion to the extremity distal to the point of catheter insertion was checked and found to be adequate. No bedside complications or bleeding. PREOPERATIVE DIAGNOSIS: Hypotension/acute kidney injury. POSTOPERATIVE DIAGNOSIS: Hypotension/acute kidney injury. Chest x-ray showed no pneumothorax and the triple lumen catheter is in good location. No complications. MMODL / IJN: [id number] /
[2018-09-01] MEDS: TICAGRELOR 90 MG TAB PO SCH ×2 (09:05→21:22)
--- NOTE | 2018-09-01 09:13 | XR ---
EXAMINATION TYPE: XR chest 1V portable DATE OF EXAM: 09/01/2018 COMPARISON: Prior chest x-ray 08/31/2018 HISTORY: Shortness of breath, abnormal chest x-ray TECHNIQUE: Single frontal view of the chest is obtained. FINDINGS: Patient is rotated. Generator is in left pectoral region, there are leads in the right atr ium and ventricle. There are overlying cardiac leads. Patchy basilar density persists. Heart size is stable. No pneumothorax or pleural effusion evident. Aorta is dense. Interstitium may be improved. IMPRESSION: Suspect some improvement in patient's volume status. Difficult to exclude minimal effusi ons and associated atelectasis. Suspect the heart is borderline enlarged.
[2018-09-01] MEDS ORDERED: DIPHENOX-ATROP 2.5-0.025 MG 1 EACH TAB PO PRN (09:37)
--- NOTE | 2018-09-01 10:03 | P.CRDCN ---
History of Present Illness Consult date: 09/01/18 History of present illness: This is a 73-year-old gentleman with history of of ischemic heart disease with previous stent placement, ischemic cardiomyopathy status post ACD implantation, who was recently discharged from this hospital after prolonged stay. During last admission patient had repeat stenting of the stent in the proximal circumflex for in-stent stenosis. Patient needed intra-aortic balloon pump and a prolonged stay in the hospital. Patient eventually recovered and was [facility]. Apparently over the last 34 days patient has been having diarrhea and hasn't been eating. Patient was finally brought to the hospital. He was found to be dehydrated with high creatinine. Complaints of mild abdominal discomfort. Denies any chest pain or shortness of breath. Doesn't appear to be in acute respiratory distress. He is being hydrated. His white count is elevated. Clostridium difficile 2 is negative. From Cardec standpoint patient seems to be stable. We'll continue to monitor him. May need either GI or infectious disease consult for further evaluation of this diarrhea. Review of Systems As per the old chart Past Medical History Past Medical History: Blood Disorder, Coronary Artery Disease (CAD), Cancer, Chest Pain / Angina, Myocardial Infarction (CA), Musculoskeletal Disorder Additional Past Medical History / Comment(s): Coronary artery disease, previous non-ST segment elevation myocardial infarction, recent hospitalization for cardiogenic shock, stenting of the circumflex artery, systolic heart failure with ejection fraction of 30-35%, prostate cancer with previous radiation therapy that he completed in March 2015, history of ITP, history of AICD placement, history of ventricular tachycardia, diabetes mellitus, ITP Last Myocardial Infarction Date:: 06/16/2015 History of Any Multi-Drug Resistant Organisms: None Reported Past Surgical History: AICD, Appendectomy, Cholecystectomy, Heart Catheterization With Stent, Pacemaker Additional Past Surgical History / Comment(s): Stent to the LAD 06/16/2015. CARDIOVERSION; AICD 04/26/16, [employer]. Defibrillator placement, insertion and removal of a intra-aortic balloon pump, cardiac catheterization and stenting of the circumflex in March 2018 Past Anesthesia/Blood Transfusion Reactions: No Reported Reaction Date of Last Stent Placement:: 06/16/2015 Type of Cardiac Device: AICD Device Placement Date:: 04/26/16 Past Psychological History: No Psychological Hx Reported Smoking Status: Former smoker Past Alcohol Use History: Rare Past Drug Use History: None Reported - Past Family History Mother Family Medical History: CVA/TIA, Hypertension Father Family Medical History: No Reported History Medications and Allergies Home Medications Medication Instructions Recorded Confirmed Type Atorvastatin [Lipitor] 40 mg PO HS 04/22/16 08/31/18 History Aspirin 81 mg PO HS 10/30/17 08/31/18 History Eltrombopag Olamine [Promacta] 50 mg PO DIRECTED 10/30/17 08/31/18 History Nitroglycerin Sl Tabs [Nitrostat] 0.4 mg SUBLINGUAL Q5M PRN 10/30/17 08/31/18 History Carvedilol [Coreg] 3.125 mg PO BID-W/MEALS tab 08/23/18 08/31/18 Rx Furosemide [Lasix] 40 mg PO BID@0900,1600 tab 08/23/18 08/31/18 Rx Ipratropium-Albuterol Nebulize 3 ml INHALATION RT-BID ampul.neb 08/23/18 Rx [Duoneb 0.5 mg-3 mg/3 ml Soln] Lisinopril [Zestril] 2.5 mg PO DAILY tab 08/23/18 08/31/18 Rx Sodium Bicarbonate Tab 650 mg PO DAILY tab 08/23/18 08/31/18 Rx Spironolactone [Aldactone] 25 mg PO DAILY tab 08/23/18 08/31/18 Rx Ticagrelor [Brilinta] 90 mg PO BID tab 08/23/18 08/31/18 Rx Acetaminophen Tab [Tylenol Tab] 650 mg PO Q6H PRN 08/31/18 08/31/18 History Fluticasone Nasal [place] [Flonase 2 spr EA NOSTRIL DAILY 08/31/18 08/31/18 History Nasal [place]] Insulin Aspart [NovoLOG See Protocol SQ ACHS 08/31/18 08/31/18 History (formulary)] Magnesium Oxide 400 mg PO HS 08/31/18 08/31/18 History Melatonin 3 mg PO HS 08/31/18 08/31/18 History Menthol [Biofreeze] 1 applic TOPICAL TID PRN 08/31/18 08/31/18 History Phenylephrine HCl [Sudafed PE] 10 mg PO BID 08/31/18 08/31/18 History Promethazine Solution 12.5 mg IM Q8H PRN 08/31/18 08/31/18 History Saxagliptin HCl [Onglyza] 5 mg PO DAILY 08/31/18 08/31/18 History Allergies Allergy/AdvReac Type Severity Reaction Status Date / Time No Known Allergies Allergy Verified 08/31/18 15:15 Physical Exam Vitals: Vital Signs Temp Pulse Resp BP Pulse Ox 09/01/18 08:30 91 21 111/66 95 09/01/18 08:00 98.0 F 87 21 90/45 95 09/01/18 07:30 89 20 84/63 95 09/01/18 07:00 87 14 94/49 97 09/01/18 06:30 95 13 94/49 92 L 09/01/18 06:00 91 20 108/54 89 L 09/01/18 05:30 90 22 102/53 96 09/01/18 05:00 90 26 H 101/48 97 09/01/18 04:30 85 25 H 97/54 97 09/01/18 04:00 97.7 F 88 14 105/53 96 09/01/18 03:30 88 13 96/55 96 09/01/18 03:00 75 18 104/52 97 09/01/18 02:30 87 14 93/44 95 09/01/18 02:00 87 22 91/51 95 09/01/18 01:30 91 27 H 88/43 93 L 09/01/18 01:00 82 22 88/39 96 09/01/18 00:30 90 96/71 90 L 09/01/18 00:15 70 15 76/55 96 09/01/18 00:00 98.2 F 71 18 96/48 98 08/31/18 23:30 78 21 89/42 97 08/31/18 23:00 77 15 84/44 96 08/31/18 22:56 97 08/31/18 22:30 80 14 81/42 97 08/31/18 22:00 69 20 81/47 96 08/31/18 21:30 70 20 77/44 96 08/31/18 21:00 73 15 75/45 97 08/31/18 20:30 72 13 76/46 96 08/31/18 20:00 97.7 F 80 20 82/40 95 08/31/18 19:44 85/73 08/31/18 19:14 98.4 F 71 19 85/45 98 08/31/18 19:00 80 20 79/43 08/31/18 18:30 79 16 67/33 97 08/31/18 18:00 73 24 92/41 98 08/31/18 17:30 70 26 H 111/90 98 08/31/18 17:21 70 18 111/90 95 08/31/18 17:00 66 13 83/46 98 08/31/18 16:30 81 13 72/30 95 08/31/18 15:35 79 28 H 77/45 99 08/31/18 15:25 80 25 H 69/45 99 08/31/18 15:01 97.3 F L 80 16 76/43 99 Intake and Output 08/31/18 09/01/18 09/01/18 22:59 06:59 14:59 Intake Total 2200 926.338 46.069 Output Total 75 395 Balance 2125 531.338 46.069 Intake: IV 2200 900 Sodium Chloride 0.9% 1, 200 900 000 ml @ 100 mls/hr IV . Q10H JESS Rx#:[id number] Sodium Chloride 0.9% 1, 2000 000 ml @ 999 mls/hr IV . Q1H1M [facility] Rx#:[id number] Intake, IV Titration 26.338 46.069 Amount Norepinephrine 16 mg In 26.338 46.069 Sodium Chloride 0.9% 250 ml @ Titrate IV .Q0M JESS Rx#:[id number] Output: Urine 75 395 Uretheral (Rehman) 50 Other: Voiding Method Indwelling Catheter Indwelling Catheter # Bowel Movements 1 Weight 106 kg 107.2 kg GENERAL EXAM: Patient is alert and oriented and doesn't appear to be in mild acute distress HEENT: Normocephalic. Normal reaction of pupils, equal size, normal range of extraocular motion. No erythema or exudates in the throat. NECK: No masses, no nuchal rigidity. CHEST: No chest wall deformity. LUNGS: Equal air entry with expiratory rhonchi HEART: S1 and S2 normal with no audible mumurs or gallops. Regular rhythm, femorals equal on both sides.. ABDOMEN: No hepatosplenomegaly, normal bowel sounds, no guarding or rigidity. SKIN: No rashes CENTRAL NERVOUS SYSTEM: No focal deficits. EXTREMITIES: No cyanosis, clubbing or edema. Results 09/01/18 04:07 09/01/18 04:07 Cardiac Enzymes 08/31/18 08/31/18 09/01/18 Range/Units 15:15 15:15 04:07 AST 29 26 (17-59) U/L CK-MB (CK-2) 0.8 (0.0-2.4) ng/mL Troponin I 0.162 H* (0.000-0.034) ng/mL 09/01/18 Range/Units 04:07 AST (17-59) U/L CK-MB (CK-2) (0.0-2.4) ng/mL Troponin I 0.123 H* (0.000-0.034) ng/mL Coagulation 09/01/18 Range/Units 04:07 PT 12.7 H (9.0-12.0) sec APTT 30.0 (22.0-30.0) sec CBC 08/31/18 09/01/18 Range/Units 15:15 04:07 WBC 43.7 H 38.9 H (3.8-10.6) k/uL RBC 2.94 L 2.87 L (4.30-5.90) m/uL Hgb 8.3 L 8.1 L (13.0-17.5) gm/dL Hct 26.8 L 26.9 L (39.0-53.0) % Plt Count 303 325 (150-450) k/uL Comprehensive Metabolic Panel 08/31/18 09/01/18 Range/Units 15:15 04:07 Sodium 138 139 (137-145) mmol/L Potassium 4.3 4.0 (3.5-5.1) mmol/L Chloride 101 107 (98-107) mmol/L Carbon Dioxide 21 L 18 L (22-30) mmol/L BUN 42 H 42 H (9-20) mg/dL Creatinine 4.59 H 4.44 H (0.66-1.25) mg/dL Glucose 179 H 143 H (74-99) mg/dL Calcium 8.6 7.4 L (8.4-10.2) mg/dL AST 29 26 (17-59) U/L ALT 25 22 (21-72) U/L Alkaline Phosphatase 61 68 (38-126) U/L Total Protein 6.2 L 5.6 L (6.3-8.2) g/dL Albumin 3.5 3.1 L (3.5-5.0) g/dL Current Medications Generic Name Dose Route Start Last Admin Trade Name Freq PRN Reason Stop Dose Admin Acetaminophen 650 mg 08/31/18 16:52 Tylenol Tab PO Q6H PRN Pain Aspirin 81 mg 08/31/18 21:00 08/31/18 22:15 Aspirin PO Not Given HS [facility] Atorvastatin Calcium 40 mg 08/31/18 21:00 08/31/18 22:16 Lipitor PO Not Given HS [facility] Fluticasone Propionate 2 spray 09/01/18 09:00 Flonase Nasal [place] EA NOSTRIL DAILY [facility] Heparin Sodium (Porcine) 5,000 unit 09/01/18 00:00 09/01/18 00:35 Heparin SQ Not Given Q8HR JESS Sodium Chloride 1,000 mls @ 100 mls/hr 08/31/18 17:00 09/01/18 03:12 Saline 0.9% IV 100 mls/hr .Q10H JESS Administration Ceftriaxone Sodium 1,000 mg/ 50 mls @ 100 mls/hr 09/01/18 09:00 Sodium Chloride IVPB Q24HR JESS Metronidazole 500 mg/ IV 100 mls @ 100 mls/hr 09/01/18 00:00 09/01/18 05:55 Solution IVPB 100 mls/hr Q6HR JESS Administration Norepinephrine Bitartrate 16 250 mls @ 0 mls/hr 08/31/18 21:30 09/01/18 08:05 mg/ Sodium Chloride IV 12 mcg/min .Q0M JESS 11.25 mls/hr Titration Protocol Titrate Linagliptin 5 mg 09/01/18 09:00 Tradjenta PO DAILY [facility] Magnesium Oxide 400 mg 08/31/18 21:00 08/31/18 22:16 Mag-Ox PO Not Given HS [facility] Melatonin 3 mg 08/31/18 21:00 08/31/18 22:16 Melatonin PO Not Given HS [facility] Methyl Salicylate 1 applic 08/31/18 16:52 Thera-Gesic Cream TOPICAL TID PRN Pain Naloxone HCl 0.2 mg 08/31/18 16:49 Narcan IV Q2M PRN Opioid Reversal Nitroglycerin 0.4 mg 08/31/18 16:52 Nitrostat SUBLINGUAL Q5M PRN CHEST PAIN Non-Formulary Medication 50 mg 08/31/18 17:00 08/31/18 19:55 Eltrombopag Olamine [Promacta] PO Not Given DIRECTED [facility] Ondansetron HCl 4 mg 08/31/18 16:49 Zofran IVP Q8HR PRN Nausea And Vomiting Pantoprazole Sodium 40 mg 08/31/18 21:30 08/31/18 22:19 Protonix IVP 40 mg DAILY JESS Administration Sodium Bicarbonate 650 mg 09/01/18 09:00 Sodium Bicarbonate Tab PO DAILY [facility] Ticagrelor 90 mg 08/31/18 21:00 08/31/18 22:16 Brilinta PO Not Given BID [facility] Intake and Output 08/31/18 09/01/18 09/01/18 22:59 06:59 14:59 Intake Total 2200 926.338 46.069 Output Total 75 395 Balance 2125 531.338 46.069 Intake: IV 2200 900 Sodium Chloride 0.9% 1, 200 900 000 ml @ 100 mls/hr IV . Q10H [facility] Rx#:[id number] Sodium Chloride 0.9% 1, 2000 000 ml @ 999 mls/hr IV . Q1H1M [facility] Rx#:[id number] Intake, IV Titration 26.338 46.069 Amount Norepinephrine 16 mg In 26.338 46.069 Sodium Chloride 0.9% 250 ml @ Titrate IV .Q0M [facility] Rx#:[id number] Output: Urine 75 395 Uretheral (Rehman) 50 Other: Voiding Method Indwelling Catheter Indwelling Catheter # Bowel Movements 1 Weight 106 kg 107.2 kg 09/01/18 04:07 09/01/18 04:07 EKG Interpretations (text) EKG showed ventricular paced rhythm. Underlying rhythm could be atrial fibrillation. Assessment and Plan (1) ARF (acute renal failure) Current Visit: Yes Status: Acute Code(s): N17.9 - ACUTE KIDNEY FAILURE, UNSPECIFIED SNOMED Code(s): 33824195 (2) Dehydration Current Visit: Yes Status: Acute Code(s): E86.0 - DEHYDRATION SNOMED Code( s): 94397148 (3) History of pacemaker Current Visit: Yes Status: Acute Code(s): Z95.0 - PRESENCE OF CARDIAC PACEMAKER SNOMED Code(s): 013354245 (4) Leukocytosis Current Visit: Yes Status: Acute Code(s): D72.829 - ELEVATED WHITE BLOOD CELL COUNT, UNSPECIFIED SNOMED Code(s): 161831648 (5) AICD (automatic cardioverter/defibrillator) present Current Visit: No Status: Acute Code(s): Z95.810 - PRESENCE OF AUTOMATIC ( IMPLANTABLE) CARDIAC DEFIBRILLATOR SNOMED Code(s): 848558778 (6) Anemia Current Visit: No Status: Acute Code(s): D64.9 - ANEMIA, UNSPECIFIED SNOMED Code(s): 344324861 (7) CAD (coronary artery disease) Current Visit: No Status: Acute Code(s): I25.10 - ATHSCL HEART DISEASE OF [place] CORONARY ARTERY W/O ANG PCTRS SNOMED Code(s): 45276185 (8) Cardiomyopathy Current Visit: No Status: Acute Code(s): I42.9 - CARDIOMYOPATHY, UNSPECIFIED SNOMED Code(s): 51703640 (9) Congestive heart failure Current Visit: No Status: Acute Code(s): I50.9 - HEART FAILURE, UNSPECIFIED SNOMED Code(s): 96335381 Plan: Continue with current medical therapy with addition. Renal consult. I'm going to interrogate the device and see if he has underlying atrial fibrillation. If so, patient may need anticoagulation therapy. Further examination depend upon the clinical course. I will also repeat his echocardiogram.
--- NOTE | 2018-09-01 10:21 | P.CONS ---
History of Present Illness - Reason for Consult Consult date: 09/01/18 diarrhea Requesting physician: Syd Yi - Chief Complaint Diarrhea weakness - History of Present Illness 73-year-old gentleman recent hospitalization for pneumonia, cardiogenic shock, acute non-ST elevated HI status post heart catheterization with PCI stent, AICD/ PPM discharged on 08/23/2018. Admitted from [facility] with reports of generalized weakness and nausea vomiting multiple episodes of nonbloody diarrhea. T-max 100.0. His has history Clostridium difficile colitis a year ago and underwent a colonoscopy shortly thereafter at [facility] with unremarkable findings. Consultation requested for diarrhea. Patient had multiple episodes of diarrhea with increased BUN and creatinine. Large volume fluid replacement over night requiring pressor support. Denies abdominal pain. Admission white count 43.7. Hemoglobin 8.3. Platelets 303. INR 1.3. BUN 42. Creatinine 4.5. Lactic acid 2.5 with hydration 1.8. LFTs within normal limits. Magnesium 1.4. Clostridium difficile EIA negative. CT abdomen and of acute abdomen and pelvis. Perinephritic bilateral stranding could related to previous episode of obstruction. No obstruction seen on this exam. No free air. No bowel obstruction. Review of Systems Constitutional: Denies fever, chills, sweats, weight gain, or loss. HEENT: Negative for migraines, blurred vision or loss, earaches, drainage, tinnitus, oral mucosal lesions, dysphagia, or odynophagia. Cardiac: Recent admission for cardiogenic shock HI. History of CHF. Negative for chest pain, arrhythmias, or palpitation. Respiratory: Negative for shortness of breath, hemoptysis, cough, or sputum production. Gastrointestinal: See HPI for pertinent findings. Genitourinary: Negative for hematuria, urgency, frequency, polyuria, dysuria, or penile discharge. Musculoskeletal: Negative for muscle aches, swelling, arthritis, and arthralgias. Neurologic: Negative for stroke or TIA. Endocrine: Negative for thyroid problems. Skin: Negative for rash or itching. Psychiatric: Negative history for depression and anxiety Past Medical History Past Medical History: Blood Disorder, Coronary Artery Disease (CAD), Cancer, Chest Pain / Angina, Myocardial Infarction (HI), Musculoskeletal Disorder Additional Past Medical History / Comment(s): Coronary artery disease, previous non-ST segment elevation myocardial infarction, recent hospitalization for cardiogenic shock, stenting of the circumflex artery, systolic heart failure with ejection fraction of 30-35%, prostate cancer with previous radiation therapy that he completed in March 2015, history of ITP, history of AICD placement, history of ventricular tachycardia, diabetes mellitus, ITP Last Myocardial Infarction Date:: 06/16/2015 History of Any Multi-Drug Resistant Organisms: None Reported Past Surgical History: AICD, Appendectomy, Cholecystectomy, Heart Catheterization With Stent, Pacemaker Additional Past Surgical History / Comment(s): Stent to the LAD 06/16/2015. CARDIOVERSION; AICD 04/26/16, [employer]. Defibrillator placement, insertion and removal of a intra-aortic balloon pump, cardiac catheterization and stenting of the circumflex in March 2018 Past Anesthesia/Blood Transfusion Reactions: No Reported Reaction Date of Last Stent Placement:: 06/16/2015 Type of Cardiac Device: AICD Device Placement Date:: 04/26/16 Past Psychological History: No Psychological Hx Reported Smoking Status: Former smoker Past Alcohol Use History: Rare Past Drug Use History: None Reported - Past Family History Mother Family Medical History: CVA/TIA, Hypertension Father Family Medical History: No Reported History Medications and Allergies Home Medications Medication Instructions Recorded Confirmed Type Atorvastatin [Lipitor] 40 mg PO HS 04/22/16 08/31/18 History Aspirin 81 mg PO HS 10/30/17 08/31/18 History Eltrombopag Olamine [Promacta] 50 mg PO DIRECTED 10/30/17 08/31/18 History Nitroglycerin Sl Tabs [Nitrostat] 0.4 mg SUBLINGUAL Q5M PRN 10/30/17 08/31/18 History Carvedilol [Coreg] 3.125 mg PO BID-W/MEALS tab 08/23/18 08/31/18 Rx Furosemide [Lasix] 40 mg PO BID@0900,1600 tab 08/23/18 08/31/18 Rx Ipratropium-Albuterol Nebulize 3 ml INHALATION RT-BID ampul.neb 08/23/18 Rx [Duoneb 0.5 mg-3 mg/3 ml Soln] Lisinopril [Zestril] 2.5 mg PO DAILY tab 08/23/18 08/31/18 Rx Sodium Bicarbonate Tab 650 mg PO DAILY tab 08/23/18 08/31/18 Rx Spironolactone [Aldactone] 25 mg PO DAILY tab 08/23/18 08/31/18 Rx Ticagrelor [Brilinta] 90 mg PO BID tab 08/23/18 08/31/18 Rx Acetaminophen Tab [Tylenol Tab] 650 mg PO Q6H PRN 08/31/18 08/31/18 History Fluticasone Nasal [place] [Flonase 2 spr EA NOSTRIL DAILY 08/31/18 08/31/18 History Nasal [place]] Insulin Aspart [NovoLOG See Protocol SQ ACHS 08/31/18 08/31/18 History (formulary)] Magnesium Oxide 400 mg PO HS 08/31/18 08/31/18 History Melatonin 3 mg PO HS 08/31/18 08/31/18 History Menthol [Biofreeze] 1 applic TOPICAL TID PRN 08/31/18 08/31/18 History Phenylephrine HCl [Sudafed PE] 10 mg PO BID 08/31/18 08/31/18 History Promethazine Solution 12.5 mg IM Q8H PRN 08/31/18 08/31/18 History Saxagliptin HCl [Onglyza] 5 mg PO DAILY 08/31/18 08/31/18 History Allergies Allergy/AdvReac Type Severity Reaction Status Date / Time No Known Allergies Allergy Verified 08/31/18 15:15 Physical Exam Vitals: Vital Signs Temp Pulse Resp BP Pulse Ox 09/01/18 10:00 91 22 107/52 98 09/01/18 09:30 90 16 116/59 94 L 09/01/18 09:00 89 15 111/61 95 09/01/18 08:30 91 21 111/66 95 09/01/18 08:00 98.0 F 87 21 90/45 95 09/01/18 07:30 89 20 84/63 95 09/01/18 07:00 87 14 94/49 97 09/01/18 06:30 95 13 94/49 92 L 09/01/18 06:00 91 20 108/54 89 L 09/01/18 05:30 90 22 102/53 96 09/01/18 05:00 90 26 H 101/48 97 09/01/18 04:30 85 25 H 97/54 97 09/01/18 04:00 97.7 F 88 14 105/53 96 09/01/18 03:30 88 13 96/55 96 09/01/18 03:00 75 18 104/52 97 09/01/18 02:30 87 14 93/44 95 09/01/18 02:00 87 22 91/51 95 09/01/18 01:30 91 27 H 88/43 93 L 09/01/18 01:00 82 22 88/39 96 09/01/18 00:30 90 96/71 90 L 09/01/18 00:15 70 15 76/55 96 09/01/18 00:00 98.2 F 71 18 96/48 98 08/31/18 23:30 78 21 89/42 97 08/31/18 23:00 77 15 84/44 96 08/31/18 22:56 97 08/31/18 22:30 80 14 81/42 97 08/31/18 22:00 69 20 81/47 96 08/31/18 21:30 70 20 77/44 96 08/31/18 21:00 73 15 75/45 97 08/31/18 20:30 72 13 76/46 96 08/31/18 20:00 97.7 F 80 20 82/40 95 08/31/18 19:44 85/73 08/31/18 19:14 98.4 F 71 19 85/45 98 08/31/18 19:00 80 20 79/43 08/31/18 18:30 79 16 67/33 97 08/31/18 18:00 73 24 92/41 98 08/31/18 17:30 70 26 H 111/90 98 08/31/18 17:21 70 18 111/90 95 08/31/18 17:00 66 13 83/46 98 08/31/18 16:30 81 13 72/30 95 08/31/18 15:35 79 28 H 77/45 99 08/31/18 15:25 80 25 H 69/45 99 08/31/18 15:01 97.3 F L 80 16 76/43 99 Intake and Output 08/31/18 09/01/18 09/01/18 22:59 06:59 14:59 Intake Total 2200 926.338 64.257 Output Total 75 395 Balance 2125 531.338 64.257 Intake: IV 2200 900 Sodium Chloride 0.9% 1, 200 900 000 ml @ 100 mls/hr IV . Q10H [facility] Rx#:[id number] Sodium Chloride 0.9% 1, 1999 000 ml @ 999 mls/hr IV . Q1H1M [facility] Rx#:[id number] Intake, IV Titration .338 64.257 Amount Norepinephrine 16 mg In .338 64.257 Sodium Chloride 0.9% 250 ml @ Titrate IV .Q0M [facility] Rx#:[id number] Output: Urine 75 395 Uretheral (Rehman) 50 Other: Voiding Method Indwelling Catheter Indwelling Catheter # Bowel Movements 1 Weight 106 kg 107.2 kg General appearance: The patient is alert, oriented, in no acute distress. HET: Head is normocephalic and atraumatic. Pupils are equal and reactive. Oropharynx is clear without lesions. Neck: Supple without lymphadenopathy. Trachea midline. Heart: S1 S2. Regular rate and rhythm. Lungs: No crackles or wheezes are heard. Abdomen: Soft, nontender, nondistended with bowel sounds. No peritoneal signs. No palpable organomegaly or masses. Extremities: Normal skin color and turgor. No cyanosis, rash, ulceration, clubbing, or edema. Radial and pedal pulses are 2/4 bilaterally. Neurological: No focal deficits. Strength and sensation are grossly intact. Results CBC & Chem 7: 09/02/18 06:00 09/02/18 05:30 Labs: Abnormal Lab Results - Last 24 Hours (Table) 08/31/18 08/31/18 08/31/18 Range/Units 15:15 15:15 15:15 WBC 43.7 H (3.8-10.6) k/uL RBC 2.94 L (4.30-5.90) m/uL Hgb 8.3 L (13.0-17.5) gm/dL Hct 26.8 L (39.0-53.0) % MCHC 30.8 L (31.0-37.0) g/dL RDW 22.4 H (11.5-15.5) % Neutrophils # (Manual) 25.70 H (1.3-7.7) k/uL Monocytes # (Manual) 17.04 H (0-1.0) k/uL Myelocytes # (Manual) (0) k/uL PT (9.0-12.0) sec INR (<1.2) Carbon Dioxide 21 L (22-30) mmol/L BUN 42 H (9-20) mg/dL Creatinine 4.59 H (0.66-1.25) mg/dL Glucose 179 H (74-99) mg/dL POC Glucose (mg/dL) (75-99) mg/dL Plasma Lactic Acid [place] (0.7-2.0) mmol/L Calcium (8.4-10.2) mg/dL Phosphorus (2.5-4.5) mg/dL Magnesium 1.4 L (1.6-2.3) mg/dL Total Creatine Kinase 175 H (55-170) U/L Troponin I 0.162 H* (0.000-0.034) ng/mL Total Protein 6.2 L (6.3-8.2) g/dL Albumin (3.5-5.0) g/dL Lipase 422 H (23-300) U/L Urine Protein (Negative) Urine Glucose (UA) (Negative) Urine Blood (Negative) Urine WBC (0-5) /hpf Urine Bacteria (None) /hpf 08/31/18 08/31/18 08/31/18 Range/Units 15:15 19:00 19:48 WBC (3.8-10.6) k/uL RBC (4.30-5.90) m/uL Hgb (13.0-17.5) gm/dL Hct (39.0-53.0) % MCHC (31.0-37.0) g/dL RDW (11.5-15.5) % Neutrophils # (Manual) (1.3-7.7) k/uL Monocytes # (Manual) (0-1.0) k/uL Myelocytes # (Manual) (0) k/uL PT (9.0-12.0) sec INR (<1.2) Carbon Dioxide (22-30) mmol/L BUN (9-20) mg/dL Creatinine (0.66-1.25) mg/dL Glucose (74-99) mg/dL POC Glucose (mg/dL) 188 H (75-99) mg/dL Plasma Lactic Acid [place] 2.5 H* (0.7-2.0) mmol/L Calcium (8.4-10.2) mg/dL Phosphorus (2.5-4.5) mg/dL Magnesium (1.6-2.3) mg/dL Total Creatine Kinase (55-170) U/L Troponin I (0.000-0.034) ng/mL Total Protein (6.3-8.2) g/dL Albumin (3.5-5.0) g/dL Lipase (23-300) U/L Urine Protein 3+ H (Negative) Urine Glucose (UA) 1+ H (Negative) Urine Blood Trace H (Negative) Urine WBC 24 H (0-5) /hpf Urine Bacteria Occasional H (None) /hpf 09/01/18 09/01/18 09/01/18 Range/Units 04:07 04:07 04:07 WBC 38.9 H (3.8-10.6) k/uL RBC 2.87 L (4.30-5.90) m/uL Hgb 8.1 L (13.0-17.5) gm/dL Hct 26.9 L (39.0-53.0) % MCHC 30.0 L (31.0-37.0) g/dL RDW 22.1 H (11.5-15.5) % Neutrophils # (Manual) 28.00 H (1.3-7.7) k/uL Monocytes # (Manual) 6.61 H (0-1.0) k/uL Myelocytes # (Manual) 0.78 H (0) k/uL PT (9.0-12.0) sec INR (<1.2) Carbon Dioxide 18 L (22-30) mmol/L BUN 42 H (9-20) mg/dL Creatinine 4.44 H (0.66-1.25) mg/dL Glucose 143 H (74-99) mg/dL POC Glucose (mg/dL) (75-99) mg/dL Plasma Lactic Acid [place] (0.7-2.0) mmol/L Calcium 7.4 L (8.4-10.2) mg/dL Phosphorus 6.5 H (2.5-4.5) mg/dL Magnesium 1.5 L (1.6-2.3) mg/dL Total Creatine Kinase (55-170) U/L Troponin I 0.123 H* (0.000-0.034) ng/mL Total Protein 5.6 L (6.3-8.2) g/dL Albumin 3.1 L (3.5-5.0) g/dL Lipase (23-300) U/L Urine Protein (Negative) Urine Glucose (UA) (Negative) Urine Blood (Negative) Urine WBC (0-5) /hpf Urine Bacteria (None) /hpf 09/01/18 Range/Units 04:07 WBC (3.8-10.6) k/uL RBC (4.30-5.90) m/uL Hgb (13.0-17.5) gm/dL Hct (39.0-53.0) % MCHC (31.0-37.0) g/dL RDW (11.5-15.5) % Neutrophils # (Manual) (1.3-7.7) k/uL Monocytes # (Manual) (0-1.0) k/uL Myelocytes # (Manual) (0) k/uL PT 12.7 H (9.0-12.0) sec INR 1.3 H (<1.2) Carbon Dioxide (22-30) mmol/L BUN (9-20) mg/dL Creatinine (0.66-1.25) mg/dL Glucose (74-99) mg/dL POC Glucose (mg/dL) (75-99) mg/dL Plasma Lactic Acid [place] (0.7-2.0) mmol/L Calcium (8.4-10.2) mg/dL Phosphorus (2.5-4.5) mg/dL Magnesium (1.6-2.3) mg/dL Total Creatine Kinase (55-170) U/L Troponin I (0.000-0.034) ng/mL Total Protein (6.3-8.2) g/dL Albumin (3.5-5.0) g/dL Lipase (23-300) U/L Urine Protein (Negative) Urine Glucose (UA) (Negative) Urine Blood (Negative) Urine WBC (0-5) /hpf Urine Bacteria (None) /hpf CT scan - abdomen: report reviewed (Dr. Montalvo) Assessment and Plan (1) Diarrhea Narrative/Plan: Acute severe diarrheal illness profound leukocytosis dehydration acute renal failure in a patient with recent hospitalization for cardiogenic shock pneumonia status post recent PCI stent with a history of clostridium difficilel colitis 2017 status post unremarkable colonoscopy at [facility]. Clostridium difficile testing EIA negative. CT abdomen and pelvis unremarkable for any acute bowel pathology. Underlying self limiting infectious colitis cannot be excluded. Current Visit: Yes Status: Acute Code(s): R19.7 - DIARRHEA, UNSPECIFIED SNOMED Code(s): 73226640 (2) Leukocytosis Current Visit: Yes Status: Acute Code(s): D72.829 - ELEVATED WHITE BLOOD CELL COUNT, UNSPECIFIED SNOMED Code(s): 449899739 (3) ARF (acute renal failure) Current Visit: Yes Status: Acute Code(s): N17.9 - ACUTE KIDNEY FAILURE, UNSPECIFIED SNOMED Code(s): 60970962 (4) Dehydration Current Visit: Yes Status: Acute Code(s): E86.0 - DEHYDRATION SNOMED Code( s): 48804487 Plan: 1. Repeat Clostridium difficile testing/PCR requested. Stool culture lactoferrin ova parasite evaluation. Imodium 2 mg 3 times a day as long as repeat C. diff testing is negative. IV antibiotics. Questran 4 g twice daily to 2 hours before after meals. Inpatient endoscopic exams not planned at this time. We'll follow closely with you. Thank you for this kind referral and the opportunity to participate in the care of your patient. This consultation was discussed with Dr. Montalvo. The impression and plan of care have been directed as dictated.
--- NOTE | 2018-09-01 11:36 | PCN ---
PROCEDURE NOTE PREOPERATIVE DIAGNOSES: 1. Acute kidney injury. 2. Hypotension. POSTOPERATIVE DIAGNOSES: 1. Acute kidney injury. 2. Hypotension. SITE OF INSERTION: Right IJ. No bedside complications or bleeding. No pneumothorax. ODL / IJN: [id number] /
[2018-09-01] MEDS: LOPERAMIDE 2 MG CAP PO SCH ×3 (12:05→23:54)
--- NOTE | 2018-09-01 14:54 | P.PN ---
Subjective Progress Note Date: 09/01/18 This is a 73-year-old male patient with multiple medical positive comorbidities who was recently discharged from the hospital after being treated for an acute non-ST segment elevation myocardial infarction. The patient was transferred to [facility]. Noted the patient was admitted to the hospital on 08/10/2018 when acute non-ST segment elevation myocardial infarction. After a complex cardiac catheterization and stenting during which an intra-aortic balloon pump was inserted, the patient did well. The circumflex was stented. The intra- aortic balloon pump was removed. The pressors were weaned off and the patient was discharged to [facility] for further rehabilitation. Note that during the same hospital stay, the patient had developed an acute kidney injury related to hypotension and contrast nephropathy from which she recovered. He has congestion heart failure with systolic dysfunction and ejection fraction of 35-40%. He was treated with cardiogenic shock. Pneumonia was also suspected and he was given a course of antibiotics and to my recollection he was given IV Zosyn. He has an AICD in place. He has previous history of ITP, colonic diverticulosis, osteoarthritis and chronic anemia. Following his discharge, the patient was gradually rehabilitating and according to the family was doing well until around 3 days ago when he started having profuse watery diarrhea. The diarrhea was constant multiple episodes, liquidy diarrhea more than 10 episodes with some limited vague abdominal pain. Apparently the patient was unable to keep up with his oral intake and the patient became progressively more lethargic. He came into the emergency departmentthis afternoon with marked abnormalities. His white cell count was elevated at 43.7. His hemoglobin was at 8.3. He had acute kidney injury with a creatinine of 4.5 and a BUN of 42. His serum lactic acid level was at 2.5. Troponin was at 0.162. The patient was hypotensive with a systolic in the mid 70s. The patient was given a total of 3 L of IV fluids. Urine output remains minimal. In the ICU inserted triple lumen catheter and we are in the process of resuscitating this patient further. Stool for C. diff was sent and the results are still pending for now. Meanwhile the patient was given a dose of Rocephin and Flagyl. The patient's lipase was at 422. AST and ALT and bilirubin were all within normal limits with mild elevation of the bilirubin up to 1.3. Total protein was 6.2 with an albumin of 3.5. Amylase was 66. Chest x -ray did not show any acute abnormalities. On 09/01/2018 and seeing this patient for a follow-up. Overnight, the patient was given fluids aggressively and a total of 5 L of normal saline was infused. Currently is on 75 mL an hour. He remained hypotensive and the patient was started on pressors and earlier this morning the patient was on 11 g of norepinephrine infusion. Urine output is improved and the patient's produced more than 300 mL of urine output and currently his urine output is about 30 mL an hour. He did have few bouts of diarrhea still. Stools for C. diff 2 has been negative. CAT scan of abdomen was also negative. Abdomen is nondistended and nontender. No. No chills. No headaches. No altered mentation. No worsening shortness of breath. Renal function is improving and the creatinine is down to 4.4. The white cell count is down to 13.8. Hemoglobin is at 8.1. Otherwise, no altered mentation. No other significant events overnight. The patient will be kept in the intensive care unit. Cardiology consultation and GI consultation is pending for now. Objective - Vital Signs Vital signs: Vital Signs Temp 98.0 F 09/01/18 08:00 Pulse 89 09/01/18 14:00 Resp 23 09/01/18 14:00 BP 110/63 09/01/18 14:00 Pulse Ox 96 09/01/18 14:00 Intake & Output 08/31/18 09/01/18 09/01/18 18:59 06:59 18:59 Intake Total 3126.338 1151.778 Output Total 470 760 Balance 2656.338 391.778 Weight 106.141 kg 107.2 kg 107.2 kg Intake: IV 3100 575 Sodium Chloride 0.9% 1, 1100 525 000 ml @ 75 mls/hr IV . [id number] [facility] Rx#:[id number] Sodium Chloride 0.9% 1, 2000 000 ml @ 999 mls/hr IV . Q1H1M [facility] Rx#:[id number] cefTRIAXone 1,000 mg In 50 Sodium Chloride 0.9% 50 ml @ 100 mls/hr IVPB Q24HR [facility] Rx#:[id number] Intake, IV Titration 26.338 96.778 Amount Norepinephrine 16 mg In 26.338 96.778 Sodium Chloride 0.9% 250 ml @ Titrate IV .Q0M [facility] Rx#:[id number] Oral 240 Tube Feeding 240 Output: Urine 470 760 Uretheral (Rehman) 50 Other: Voiding Method Indwelling Catheter Indwelling Catheter # Bowel Movements 1 - Exam GENERAL EXAM: Alert, pleasant, 73-year-old obese white male comfortable in no apparent distress. The patient is resting comfortably in bed on oxygen at 3 L per minute nasal cannula. HEAD: Normocephalic/atraumatic. EYES: Normal reaction of pupils, equal size. Conjunctiva pink, sclera white. NOSE: Clear with pink turbinates. THROAT: No erythema or exudates. NECK: No masses, no JVD, no thyroid enlargement, no adenopathy. The patient also has a triple lumen catheter in the right IJ. CHEST: No chest wall deformity. Symmetrical expansion. LUNGS: Breath sounds are diminished bilaterally and the lungs are clear without any significant crackling at this point in time. CVS: Irregular rate and rhythm, normal S1 and S2, no gallops, no murmurs, no rubs, the patient has occasional paced rhythm and the rhythm is somewhat irregular at this point in time. ABDOMEN: Soft, nontender. No hepatosplenomegaly, normal bowel sounds, no guarding or rigidity. EXTREMITIES: No clubbing, no edema, no cyanosis, diminished pulses and upper and lower extremities. MUSCULOSKELETAL: Muscle strength and tone normal. SPINE: No scoliosis or deformity SKIN: No rashes CENTRAL NERVOUS SYSTEM: Alert and oriented -3. No focal deficits, tone is normal in all 4 extremities. PSYCHIATRIC: Alert and oriented -3. Appropriate affect. Intact judgment and insight. - Labs CBC & Chem 7: 09/01/18 04:07 09/01/18 04:07 Labs: Abnormal Lab Results - Last 24 Hours (Table) 08/31/18 08/31/18 08/31/18 Range/Units 15:15 15:15 15:15 WBC 43.7 H (3.8-10.6) k/uL RBC 2.94 L (4.30-5.90) m/uL Hgb 8.3 L (13.0-17.5) gm/dL Hct 26.8 L (39.0-53.0) % MCHC 30.8 L (31.0-37.0) g/dL RDW 22.4 H (11.5-15.5) % Neutrophils # (Manual) 25.70 H (1.3-7.7) k/uL Monocytes # (Manual) 17.04 H (0-1.0) k/uL Myelocytes # (Manual) (0) k/uL PT (9.0-12.0) sec INR (<1.2) Carbon Dioxide 21 L (22-30) mmol/L BUN 42 H (9-20) mg/dL Creatinine 4.59 H (0.66-1.25) mg/dL Glucose 179 H (74-99) mg/dL POC Glucose (mg/dL) (75-99) mg/dL Plasma Lactic Acid Geovany (0.7-2.0) mmol/L Calcium (8.4-10.2) mg/dL Phosphorus (2.5-4.5) mg/dL Magnesium 1.4 L (1.6-2.3) mg/dL Total Creatine Kinase 175 H (55-170) U/L Troponin I 0.162 H* (0.000-0.034) ng/mL Total Protein 6.2 L (6.3-8.2) g/dL Albumin (3.5-5.0) g/dL Lipase 422 H (23-300) U/L Urine Protein (Negative) Urine Glucose (UA) (Negative) Urine Blood (Negative) Urine WBC (0-5) /hpf Urine Bacteria (None) /hpf 08/31/18 08/31/18 08/31/18 Range/Units 15:15 19:00 19:48 WBC (3.8-10.6) k/uL RBC (4.30-5.90) m/uL Hgb (13.0-17.5) gm/dL Hct (39.0-53.0) % MCHC (31.0-37.0) g/dL RDW (11.5-15.5) % Neutrophils # (Manual) (1.3-7.7) k/uL Monocytes # (Manual) (0-1.0) k/uL Myelocytes # (Manual) (0) k/uL PT (9.0-12.0) sec INR (<1.2) Carbon Dioxide (22-30) mmol/L BUN (9-20) mg/dL Creatinine (0.66-1.25) mg/dL Glucose (74-99) mg/dL POC Glucose (mg/dL) 188 H (75-99) mg/dL Plasma Lactic Acid Geovany 2.5 H* (0.7-2.0) mmol/L Calcium (8.4-10.2) mg/dL Phosphorus (2.5-4.5) mg/dL Magnesium (1.6-2.3) mg/dL Total Creatine Kinase (55-170) U/L Troponin I (0.000-0.034) ng/mL Total Protein (6.3-8.2) g/dL Albumin (3.5-5.0) g/dL Lipase (23-300) U/L Urine Protein 3+ H (Negative) Urine Glucose (UA) 1+ H (Negative) Urine Blood Trace H (Negative) Urine WBC 24 H (0-5) /hpf Urine Bacteria Occasional H (None) /hpf 09/01/18 09/01/18 09/01/18 Range/Units 04:07 04:07 04:07 WBC 38.9 H (3.8-10.6) k/uL RBC 2.87 L (4.30-5.90) m/uL Hgb 8.1 L (13.0-17.5) gm/dL Hct 26.9 L (39.0-53.0) % MCHC 30.0 L (31.0-37.0) g/dL RDW 22.1 H (11.5-15.5) % Neutrophils # (Manual) 28.00 H (1.3-7.7) k/uL Monocytes # (Manual) 6.61 H (0-1.0) k/uL Myelocytes # (Manual) 0.78 H (0) k/uL PT (9.0-12.0) sec INR (<1.2) Carbon Dioxide 18 L (22-30) mmol/L BUN 42 H (9-20) mg/dL Creatinine 4.44 H (0.66-1.25) mg/dL Glucose 143 H (74-99) mg/dL POC Glucose (mg/dL) (75-99) mg/dL Plasma Lactic Acid Geovany (0.7-2.0) mmol/L Calcium 7.4 L (8.4-10.2) mg/dL Phosphorus 6.5 H (2.5-4.5) mg/dL Magnesium 1.5 L (1.6-2.3) mg/dL Total Creatine Kinase (55-170) U/L Troponin I 0.123 H* (0.000-0.034) ng/mL Total Protein 5.6 L (6.3-8.2) g/dL Albumin 3.1 L (3.5-5.0) g/dL Lipase (23-300) U/L Urine Protein (Negative) Urine Glucose (UA) (Negative) Urine Blood (Negative) Urine WBC (0-5) /hpf Urine Bacteria (None) /hpf 09/01/18 09/01/18 Range/Units 04:07 04:07 WBC (3.8-10.6) k/uL RBC (4.30-5.90) m/uL Hgb (13.0-17.5) gm/dL Hct (39.0-53.0) % MCHC (31.0-37.0) g/dL RDW (11.5-15.5) % Neutrophils # (Manual) (1.3-7.7) k/uL Monocytes # (Manual) (0-1.0) k/uL Myelocytes # (Manual) (0) k/uL PT 12.7 H (9.0-12.0) sec INR 1.3 H (<1.2) Carbon Dioxide (22-30) mmol/L BUN (9-20) mg/dL Creatinine (0.66-1.25) mg/dL Glucose (74-99) mg/dL POC Glucose (mg/dL) (75-99) mg/dL Plasma Lactic Acid Geovany (0.7-2.0) mmol/L Calcium (8.4-10.2) mg/dL Phosphorus (2.5-4.5) mg/dL Magnesium (1.6-2.3) mg/dL Total Creatine Kinase (55-170) U/L Troponin I (0.000-0.034) ng/mL Total Protein (6.3-8.2) g/dL Albumin (3.5-5.0) g/dL Lipase 463 H (23-300) U/L Urine Protein (Negative) Urine Glucose (UA) (Negative) Urine Blood (Negative) Urine WBC (0-5) /hpf Urine Bacteria (None) /hpf Assessment and Plan Plan: Assessment 1 acute diarrhea with intravascular volume depletion, dehydration and some vague limited abdominal pain. CAT scan of the abdomen was negative. Stool for C. diff was also negative. The patient is being hydrated. He will be started on Imodium and Questran. 2 acute leukocytosis, currently under investigation. The white cell count is improving. 3 acute hypotension secondary to intravascular volume depletion. Rule out underlying component of sepsis contributing to the low blood pressure. 4 acute kidney injury secondary to intravascular volume depletion. The patient was assisted IV fluids. The patient was given IV normal saline bolus and his urine output is improving and it creatinine is down to 4.4. No evidence of hydronephrosis based on the CAT scan of the abdomen. 5 history of coronary artery disease with previous non-ST segment elevation myocardial infarction requiring emergent cardiac catheterization and stenting of the circumflex 6 previous history of cardiogenic shock post cardiac catheterization and insertion of a stent. The patient was supported by intra-aortic balloon pump is pressors back in March 2018 7 congestion heart failure with ischemic cardiomyopathy and ejection fraction of 30-35%. The patient has an AICD in place 8 diabetes mellitus type 2 9 COPD 10 previous history of ITP 11 chronic anemia 12 elevation of lipase, pancreatitis is doubtful. 13 acute lactic acidosis, improving and the lactic acid level has normalized down to 1.4. Plan The patient remains critically ill. The patient remains pressor dependent. The patient be kept in the intensive care unit. We'll wean off the norepinephrine infusion as tolerated to maintain a mean arterial pressure above 65. Monitored urine output. Monitor the renal function. Continue IV fluids with normal state rate of 75 is an hour. Continue Flagyl. Continue Rocephin. Awaiting GI and cardiology consultation. Meanwhile start the patient on Imodium regarding the diarrhea. CAT scan of the abdomen showed no evidence of any colitis or any other abnormalities contributing to his underlying diarrhea. Lipase levels remain elevated without increase in amylase. Nevertheless the presentation is not typical of pancreatitis. We'll continue to follow. The patient was kept in ICU. Repeat labs in a.m.
[2018-09-01] MEDS: ELTROMBOPAG OLAMINE 50 MG PO SCH (17:09)
[2018-09-01] MEDS: CHOLESTYRAMINE (WITH SUGAR) 4 GM PACKET PO SCH (17:10)
[2018-09-01 17:21] LABS: Glucose,Whole Blood 161 mg/dL (75-99)
[2018-09-01 21:03] LABS: Glucose,Whole Blood 172 mg/dL (75-99)
[2018-09-01] MEDS: MAGNESIUM OXIDE 400 MG TAB PO SCH (21:21)
[2018-09-01] MEDS: ATORVASTATIN 40 MG TAB PO SCH (21:22)
[2018-09-01] MEDS: ASPIRIN 81 MG PO SCH (21:22)
[2018-09-01] MEDS: MELATONIN 3 MG TABLET PO SCH (21:22)
[2018-09-01] MEDS: SODIUM BICARBONATE TAB 650 MG TAB PO SCH (21:22)
--- NOTE | 2018-09-01 21:57 | PN ---
PROGRESS NOTE DATE OF SERVICE: 09/01/2018 PRESENTING COMPLAINT: Tired. INTERVAL HISTORY: Patient is in the ICU. The patient was recently in the hospital with acute DC with stent, had cardiogenic shock. Also treated for pneumonia and acute kidney injury. Has an underlying AICD. The patient is now admitted with acute severe diarrhea. Initial C diff EIA method was negative. Repeat C diff was pending. The patient also found to have acute renal failure. Remains this morning on the Levophed drip 7 mics IV fluids. Some diarrhea still present. Getting IV fluids. Not much of an appetite. REVIEW OF SYSTEMS: Done for constitutional, cardiovascular, GI, pulmonary and relevant findings as above. CURRENT MEDICATIONS: Reviewed and include IV ceftriaxone, p.o. Questran, Imodium, IV Flagyl, Levophed, sodium bicarb. EXAMINATION: Afebrile, pulse 91, respiratory 22, blood pressure 117/52, pulse ox 98% on 2 L. GENERAL APPEARANCE: Lying in bed, awake, tired-appearing. EYES: Pupils equal. Conjunctivae pale. HEET: External appearance of nose and ears normal. Oral cavity dry. NECK: JVD unable to assess. Mass not palpable. RESPIRATORY: Effort normal. LUNGS fair entry. CARDIOVASCULAR: 1st and 2nd sounds normal. No edema. ABDOMEN: Soft, nontender. Liver and spleen not palpable. PSYCHIATRY: Alert and oriented x3. Mood and affect normal. INVESTIGATIONS: White count 38.9, hemoglobin 8.1, platelets 325, potassium 4.0, BUN 42, creatinine 4.44. Troponin 0.123. ASSESSMENT: 1. Acute severe diarrhea in the setting of hospitalization. Need to rule out a C diff with PCR method, empirically on Flagyl. 2. Acute renal failure, nonoliguric, likely combination of prerenal from diarrhea and acute tubular necrosis from medications including BACILIO inhibitor and diuretics. 3. Coronary artery disease with stent to circumflex and LAD recently. 4. AICD. 5. Idiopathic thrombocytopenia purpura for which patient is on Promacta. 6. Colonic diverticulosis asymptomatic. 7. Primary osteoarthritis of the lower back. 8. Obesity; BMI of more than 30. 9. Chronic congestive heart failure from systolic dysfunction, EF 35-40 percent, underlying coronary artery disease. 10.Hypotensive shock from volume loss. The patient remains on Levophed. PLAN: Continue current medication and treatment plan. Antibiotics. Stool also sent of ova and parasites. Remains in the ICU. Care was discussed with the patient. Still having diarrhea, slow to respond. MMODL / IJN: [id number] /
--- NOTE | 2018-09-01 22:48 | CONS ---
CONSULTATION REASON FOR CONSULT: Renal failure. HISTORY OF PRESENT ILLNESS: Patient is a 73-year-old male who was admitted to the hospital yesterday after a recent hospitalization for non-ST elevation PR on his last admission. He had acute kidney injury at that time secondary to hypotension, hypoperfusion and contrast nephropathy. The patient had cardiac catheterization with coronary stent placement. He was hypotensive. Ejection fraction was about 35-40 percent, and patient had been on Levophed on his last admission. His creatinine had peaked to about 2.6 mg/dL and then improved and it was 1.4 mg/dL around the time of discharge. The patient was admitted on this hospitalization with nausea, vomiting, fever, generalized weakness. He has also had a lot of diarrhea. The patient has received IV fluids. Serum creatinine was 4.59 mg/dL. It is down to 4.4. Urine output was low initially. It seems to have picked up now. The patient is also maintained on low dose Levophed. He has received multiple fluid boluses and C diff toxin has been negative. PAST MEDICAL HISTORY: A recent non-ST elevation PR and hospitalization with cardiogenic shock and hypotension and acute kidney injury on coronary artery disease, recent PR, cardiomyopathy, EF 30-35 percent. History of prostatic cancer with radiation therapy, type 2 diabetes, history of ITP. PAST SURGICAL HISTORY: AICD, appendicectomy, and cholecystectomy. Recent cardiac cath and coronary stent placement. Cardioversion defibrillator. History of intraaortic balloon pump. SOCIAL HISTORY: Patient is a former smoker. No history of drug abuse or alcohol abuse. MEDICATIONS: Prior to admission include Lipitor, aspirin, Nitrostat, Coreg, Lasix, Zestril, sodium bicarb, Aldactone, Brilinta, melatonin. ALLERGIES: None. EXAMINATION: Patient is currently comfortable, awake. He is not in any acute distress. Blood pressure this morning was 107/52. The patient is afebrile. Heart rate about 90 per minute. Examination of the heart S1, S2. Examination of lungs bilateral breath sounds are heard. Abdomen is soft, nontender. Examination of lower extremities shows trace edema bilaterally. PROSTHODONTIST/OWNER exam is grossly intact. LAB: Show sodium 139, potassium 4.0, chloride 107, CO2 is 18, BUN 42, serum creatinine 4.4, hemoglobin of 8.1 g/dL. ASSESSMENT: 1. Acute kidney injury, mainly secondary to hypotension and hypovolemia, status post multiple fluid boluses with improvement in urine output. I will continue with IV fluids. Continue to wean down pressors as tolerated. 2. Recent acute kidney injury on last admission secondary to cardiogenic shock and contrast nephropathy and hypotension. 3. Diarrhea, rule out Clostridium difficile colitis. C diff toxin was negative. 4. Cardiomyopathy, ejection fraction 35-40 percent. 5. Recent myocardial infarction on last admission, status post coronary stent placement. 6. History of idiopathic thrombocytopenia purpura. 7. Type 2 diabetes. 8. Lactic acidosis, currently improved. 9. Chronic kidney disease, most likely secondary to diabetic nephropathy. The patient does have proteinuria. He will need followup as outpatient and NKF stage III, with creatinine down to about 1.4 on 08/23/2018. PLAN: Continue IV fluids. Continue to avoid nephrotoxic agents. Repeat labs in a.m. Thank you for this consultation. We will continue to follow the patient with you during his hospitalization. MMSHOLAL / TERRYN: [id number] /
[2018-09-02] MEDS: NOREPINEPHRINE 16 MG in SODIUM CHLORIDE 0.9% 250 ML IV SCH (04:00)
[2018-09-02 05:33] LABS: Anisocytosis Moderate; HCT 26.3 % (39.0-53.0); HGB 7.8 gm/dL (13.0-17.5); Hypochromasia Marked; MCHC 29.8 g/dL (31.0-37.0); MCV 93.8 fL (80.0-100.0); Macrocytosis Slight; Mean Platelet Volume 10.6; Platelet Count 296 k/uL (150-450); Poikilocytosis Slight; RBC 2.81 m/uL (4.30-5.90); RDW 21.7 % (11.5-15.5); WBC 18.8 k/uL (3.8-10.6)
[2018-09-02 05:47] LABS: Calcium 7.3 mg/dL (8.4-10.2); Magnesium 1.6 mg/dL (1.6-2.3); Phosphorus 4.2 mg/dL (2.5-4.5); Potassium 3.6 mmol/L (3.5-5.1)
[2018-09-02] MEDS: metroNIDAZOLE-NS PMX 500 MG in SALINE 1 100ML.BAG IVPB SCH ×4 (06:10→23:58)
[2018-09-02] MEDS: SODIUM CHLORIDE 0.9% 1,000 ML IV SCH ×2 (06:11→17:22)
[2018-09-02] MEDS: FLUTICASONE 50MCG/SPRAY NASAL 16GM EA NOSTRIL SCH (08:51)
[2018-09-02] MEDS: HEPARIN SODIUM,PORCINE 5,000 UNIT/ML 1 ML VIAL SQ SCH (08:51)
[2018-09-02] MEDS: LOPERAMIDE 2 MG CAP PO SCH ×4 (08:51→21:33)
[2018-09-02] MEDS: TICAGRELOR 90 MG TAB PO SCH ×2 (08:51→21:34)
[2018-09-02] MEDS: SODIUM BICARBONATE TAB 650 MG TAB PO SCH ×2 (08:52→21:33)
[2018-09-02] MEDS: PANTOPRAZOLE 40 MG/10 ML VIAL IVP SCH (08:52)
[2018-09-02] MEDS: LINAGLIPTIN 5 MG TABLET PO SCH (08:52)
[2018-09-02] MEDS: CHOLESTYRAMINE (WITH SUGAR) 4 GM PACKET PO SCH ×2 (09:01→17:34)
--- NOTE | 2018-09-02 09:15 | XR ---
EXAMINATION TYPE: XR chest 1V portable DATE OF EXAM: 09/02/2018 COMPARISON: Prior chest x-ray 09/01/2018 HISTORY: Shortness of breath, abnormal chest x-ray TECHNIQUE: Single frontal view of the chest is obtained. FINDINGS: Patient is rotated. Pacemaker stable. Heart size is stable. Bibasilar increased density portillo s caused interval obscured appearance to the hemidiaphragms. Central vascularity and interstitium are increased. Right jugular central venous catheter is stable. No evident pneumothorax. IMPRESSION: Correlate for worsening congestive heart failure or volume overload. There are likely bi basilar effusions. Follow-up recommended.
--- NOTE | 2018-09-02 09:27 | P.PN ---
Subjective Progress Note Date: 09/02/18 This is a 73-year-old gentleman with history of known ischemic heart disease with recent stent placement of the circumflex for in-stent stenosis and chronic congestive heart failure and cardiomyopathy who is basically admitted to the hospital with dehydration and renal failure related to his diarrhea. Patient is feeling better. The diarrhea has become less frequent. His creatinine has shown improvement. He was sitting about 70 mL an hour. Denies any chest pain or shortness of breath. Lungs do not show any Sigmund and also wheezing at this time. Heart rhythm seemed to be his regular. EKG size to of atrial fibrillation with intermittent pacing. Pacemaker evaluation yesterday did not reveal any defibrillation. We'll going to evaluate pacemaker again today. If there is atrial fibrillation, patient may become a candidate for anticoagulation. Otherwise, we'll continue current medical therapy and follow closely for development of CHF. Chest x-ray showed possible mild vascular congestion Objective - Vital Signs Vital signs: Vital Signs Temp 97.8 F 09/02/18 00:00 Pulse 81 09/02/18 06:00 Resp 18 09/02/18 06:00 BP 98/63 09/02/18 06:00 Pulse Ox 96 09/02/18 05:30 Intake & Output 09/01/18 09/02/18 09/02/18 18:59 06:59 18:59 Intake Total 1766.778 943.532 Output Total 1340 1450 Balance 426.778 -506.468 Weight 107.2 kg 110.5 kg Intake: IV 950 825 Sodium Chloride 0.9% 1, 900 825 000 ml @ 75 mls/hr IV . [id number] [facility] Rx#:[id number] cefTRIAXone 1,000 mg In 50 Sodium Chloride 0.9% 50 ml @ 100 mls/hr IVPB Q24HR [facility] Rx#:[id number] Intake, IV Titration 96.778 118.532 Amount Norepinephrine 16 mg In 96.778 118.532 Sodium Chloride 0.9% 250 ml @ Titrate IV .Q0M [facility] Rx#:[id number] Oral 480 Tube Feeding 240 Output: Urine 1340 1450 Other: Voiding Method Indwelling Catheter Indwelling Catheter - Exam GENERAL EXAM: Patient is alert and oriented and doesn't appear to be in any acute distress HEENT: Normocephalic. Normal reaction of pupils, equal size, normal range of extraocular motion. No erythema or exudates in the throat. NECK: No masses, no nuchal rigidity. CHEST: No chest wall deformity. LUNGS: Equal air entry with no crackles or wheeze. HEART: S1 and S2 normal with no audible mumurs or gallops. Irregular rhythm ABDOMEN: No hepatosplenomegaly, normal bowel sounds, no guarding or rigidity. SKIN: No rashes CENTRAL NERVOUS SYSTEM: No focal deficits. EXTREMITIES: No cyanosis, clubbing or edema. - Labs CBC & Chem 7: 09/02/18 06:00 09/02/18 05:30 Labs: Abnormal Lab Results - Last 24 Hours (Table) 09/01/18 09/01/18 09/01/18 Range/Units 04:07 10:10 17:19 WBC (3.8-10.6) k/uL RBC (4.30-5.90) m/uL Hgb (13.0-17.5) gm/dL Hct (39.0-53.0) % MCHC (31.0-37.0) g/dL RDW (11.5-15.5) % Chloride (98-107) mmol/L Carbon Dioxide (22-30) mmol/L BUN (9-20) mg/dL Creatinine (0.66-1.25) mg/dL Glucose (74-99) mg/dL POC Glucose (mg/dL) 161 H (75-99) mg/dL Calcium (8.4-10.2) mg/dL Lipase 463 H (23-300) U/L Stool Lactoferrin POSITIVE H (NEGATIVE) 09/01/18 09/02/18 09/02/18 Range/Units 21:01 05:30 06:00 WBC 18.8 H (3.8-10.6) k/uL RBC 2.81 L (4.30-5.90) m/uL Hgb 7.8 L (13.0-17.5) gm/dL Hct 26.3 L (39.0-53.0) % MCHC 29.8 L (31.0-37.0) g/dL RDW 21.7 H (11.5-15.5) % Chloride 112 H (98-107) mmol/L Carbon Dioxide 21 L (22-30) mmol/L BUN 34 H (9-20) mg/dL Creatinine 2.55 H (0.66-1.25) mg/dL Glucose 175 H (74-99) mg/dL POC Glucose (mg/dL) 172 H (75-99) mg/dL Calcium 7.3 L (8.4-10.2) mg/dL Lipase 650 H (23-300) U/L Stool Lactoferrin (NEGATIVE) Microbiology - Last 24 Hours (Table) 08/31/18 15:15 Blood Culture - Preliminary Blood No Growth after 24 hours 09/01/18 09:38 Stool Culture - Preliminary Stool Assessment and Plan (1) ARF (acute renal failure) Current Visit: Yes Status: Acute Code(s): N17.9 - ACUTE KIDNEY FAILURE, UNSPECIFIED SNOMED Code(s): 72788859 (2) Dehydration Current Visit: Yes Status: Acute Code(s): E86.0 - DEHYDRATION SNOMED Code( s): 39768720 (3) History of pacemaker Current Visit: Yes Status: Acute Code(s): Z95.0 - PRESENCE OF CARDIAC PACEMAKER SNOMED Code(s): 153973070 (4) Leukocytosis Current Visit: Yes Status: Acute Code(s): D72.829 - ELEVATED WHITE BLOOD CELL COUNT, UNSPECIFIED SNOMED Code(s): 734592313 (5) AICD (automatic cardioverter/defibrillator) present Current Visit: No Status: Acute Code(s): Z95.810 - PRESENCE OF AUTOMATIC ( IMPLANTABLE) CARDIAC DEFIBRILLATOR SNOMED Code(s): 565279579 (6) Anemia Current Visit: No Status: Acute Code(s): D64.9 - ANEMIA, UNSPECIFIED SNOMED Code(s): 522945456 (7) CAD (coronary artery disease) Current Visit: No Status: Acute Code(s): I25.10 - ATHSCL HEART DISEASE OF CIRCLE CORONARY ARTERY W/O ANG PCTRS SNOMED Code(s): 77720464 (8) Cardiomyopathy Current Visit: No Status: Acute Code(s): I42.9 - CARDIOMYOPATHY, UNSPECIFIED SNOMED Code(s): 77515953 (9) Congestive heart failure Current Visit: No Status: Acute Code(s): I50.9 - HEART FAILURE, UNSPECIFIED SNOMED Code(s): 28204169 Plan: Overall patient seemed to be feeling better. His creatinine showed improvement. His heart rhythm seems to be regular. Underlying atrial fibrillation to be ruled out. We'll going to evaluate pacemaker again. Meanwhile we'll continue current medical therapy. If indicated for ablation as documented, patient may be candidate for anticoagulation therapy
[2018-09-02] MEDS ORDERED: HEPARIN SODIUM,PORCINE 5,000 UNIT/ML 1 ML VIAL IV PRN ×2 (10:39→12:14)
[2018-09-02] MEDS ORDERED: HEPARIN SODIUM,PORCINE 5,000 UNIT/ML 1 ML VIAL IV ONE (10:39)
[2018-09-02] MEDS ORDERED: HEPARIN SOD,PORK IN 0.45% NACL 25,000 UNIT in 0.45% NACL 1 500ML.BAG IV SCH (10:45)
[2018-09-02 11:54] LABS: INR 1.2 (<1.2); Partial Thromboplastin Time 28.9 sec (22.0-30.0)
--- NOTE | 2018-09-02 12:02 | P.PN ---
Subjective Progress Note Date: 09/02/18 Principal diagnosis: acute diarrhea dehydration SAI 4 BM x 24 hours. Feels "much better". Pressors decreased. WBC improved to 18. Afebrile. Lactoferrin positive. Denies AP. Objective - Vital Signs Vital signs: Vital Signs Temp 97.8 F 09/02/18 00:00 Pulse 81 09/02/18 06:00 Resp 18 09/02/18 06:00 BP 98/63 09/02/18 06:00 Pulse Ox 95 09/02/18 07:10 Intake & Output 09/01/18 09/02/18 09/02/18 18:59 06:59 18:59 Intake Total 1766.778 943.532 30 Output Total 1340 1450 Balance 426.778 -506.468 30 Weight 107.2 kg 110.5 kg Intake: IV 950 825 Sodium Chloride 0.9% 1, 900 825 000 ml @ 75 mls/hr IV . [id number] JESS Rx#:[id number] cefTRIAXone 1,000 mg In 50 Sodium Chloride 0.9% 50 ml @ 100 mls/hr IVPB Q24HR JESS Rx#:[id number] Intake, IV Titration 96.778 118.532 30 Amount Norepinephrine 16 mg In 96.778 118.532 30 Sodium Chloride 0.9% 250 ml @ Titrate IV .Q0M JESS Rx#:[id number] Oral 480 Tube Feeding 240 Output: Urine 1340 1450 Other: Voiding Method Indwelling Catheter Indwelling Catheter - Constitutional General appearance: Present: obese - EENT Eyes: Present: normal appearance ENT: Present: normal oropharynx Ears: bilateral: normal - Neck Neck: Present: normal ROM - Respiratory Respiratory: bilateral: CTA - Cardiovascular Rhythm: regular - Gastrointestinal General gastrointestinal: Present: soft - Neurologic Neurologic: Present: CNII-XII intact - Psychiatric Psychiatric: Present: A&O x's 3 - Labs CBC & Chem 7: 09/02/18 06:00 09/02/18 05:30 Labs: Abnormal Lab Results - Last 24 Hours (Table) 09/01/18 09/01/18 09/01/18 Range/Units 10:10 17:19 21:01 WBC (3.8-10.6) k/uL RBC (4.30-5.90) m/uL Hgb (13.0-17.5) gm/dL Hct (39.0-53.0) % MCHC (31.0-37.0) g/dL RDW (11.5-15.5) % INR (<1.2) Chloride (98-107) mmol/L Carbon Dioxide (22-30) mmol/L BUN (9-20) mg/dL Creatinine (0.66-1.25) mg/dL Glucose (74-99) mg/dL POC Glucose (mg/dL) 161 H 172 H (75-99) mg/dL Calcium (8.4-10.2) mg/dL Lipase (23-300) U/L Stool Lactoferrin POSITIVE H (NEGATIVE) 09/02/18 09/02/18 09/02/18 Range/Units 05:30 06:00 11:10 WBC 18.8 H (3.8-10.6) k/uL RBC 2.81 L (4.30-5.90) m/uL Hgb 7.8 L (13.0-17.5) gm/dL Hct 26.3 L (39.0-53.0) % MCHC 29.8 L (31.0-37.0) g/dL RDW 21.7 H (11.5-15.5) % INR 1.2 H (<1.2) Chloride 112 H (98-107) mmol/L Carbon Dioxide 21 L (22-30) mmol/L BUN 34 H (9-20) mg/dL Creatinine 2.55 H (0.66-1.25) mg/dL Glucose 175 H (74-99) mg/dL POC Glucose (mg/dL) (75-99) mg/dL Calcium 7.3 L (8.4-10.2) mg/dL Lipase 650 H (23-300) U/L Stool Lactoferrin (NEGATIVE) Microbiology - Last 24 Hours (Table) 08/31/18 15:15 Blood Culture - Preliminary Blood No Growth after 24 hours 09/01/18 09:38 Stool Culture - Preliminary Stool Assessment and Plan (1) Diarrhea Narrative/Plan: Acute severe diarrheal illness profound leukocytosis dehydration acute renal failure in a patient with recent hospitalization for cardiogenic shock pneumonia status post recent PCI stent with a history of clostridium difficilel colitis 2017 status post unremarkable colonoscopy at . Clostridium difficile testing EIA negative. CT abdomen and pelvis unremarkable for any acute bowel pathology. Positie Lactoferrin suspect underlying self limiting infectious colitis. Current Visit: Yes Status: Acute Code(s): R19.7 - DIARRHEA, UNSPECIFIED SNOMED Code(s): 33586085 (2) Leukocytosis Current Visit: Yes Status: Acute Code(s): D72.829 - ELEVATED WHITE BLOOD CELL COUNT, UNSPECIFIED SNOMED Code(s): 927167711 (3) ARF (acute renal failure) Current Visit: Yes Status: Acute Code(s): N17.9 - ACUTE KIDNEY FAILURE, UNSPECIFIED SNOMED Code(s): 34709666 (4) Dehydration Current Visit: Yes Status: Acute Code(s): E86.0 - DEHYDRATION SNOMED Code( s): 54491920 Plan: 1. Overall he is improving. Continue present medical therapy and ABX. Will continue to follow. Assessment and plan of care discussed with Dr. Montalvo
[2018-09-02 12:09] LABS: Glucose,Whole Blood 184 mg/dL (75-99)
[2018-09-02] MEDS: guaiFENesin 600 MG TABLET.ER PO SCH ×2 (12:30→21:32)
[2018-09-02] MEDS: INSULIN ASPART 100 UNIT/ML 1 ML 10 ML VIAL SQ SCH ×3 (12:44→21:32)
[2018-09-02] MEDS: HEPARIN SOD,PORK IN 0.45% NACL 25,000 UNIT in 0.45% NACL 1 500ML.BAG IV SCH (13:30)
--- NOTE | 2018-09-02 15:55 | P.PN ---
Subjective Progress Note Date: 09/02/18 Principal diagnosis: Diarrhea, with intravascular volume depletion, hypovolemic shock This is a 73-year-old male patient with multiple medical positive comorbidities who was recently discharged from the hospital after being treated for an acute non-ST segment elevation myocardial infarction. The patient was transferred to [facility]. Noted the patient was admitted to the hospital on 08/10/2018 when acute non-ST segment elevation myocardial infarction. After a complex cardiac catheterization and stenting during which an intra-aortic balloon pump was inserted, the patient did well. The circumflex was stented. The intra- aortic balloon pump was removed. The pressors were weaned off and the patient was discharged to [facility] for further rehabilitation. Note that during the same hospital stay, the patient had developed an acute kidney injury related to hypotension and contrast nephropathy from which she recovered. He has congestion heart failure with systolic dysfunction and ejection fraction of 35-40%. He was treated with cardiogenic shock. Pneumonia was also suspected and he was given a course of antibiotics and to my recollection he was given IV Zosyn. He has an AICD in place. He has previous history of ITP, colonic diverticulosis, osteoarthritis and chronic anemia. Following his discharge, the patient was gradually rehabilitating and according to the family was doing well until around 3 days ago when he started having profuse watery diarrhea. The diarrhea was constant multiple episodes, liquidy diarrhea more than 10 episodes with some limited vague abdominal pain. Apparently the patient was unable to keep up with his oral intake and the patient became progressively more lethargic. He came into the emergency departmentthis afternoon with marked abnormalities. His white cell count was elevated at 43.7. His hemoglobin was at 8.3. He had acute kidney injury with a creatinine of 4.5 and a BUN of 42. His serum lactic acid level was at 2.5. Troponin was at 0.162. The patient was hypotensive with a systolic in the mid 70s. The patient was given a total of 3 L of IV fluids. Urine output remains minimal. In the ICU inserted triple lumen catheter and we are in the process of resuscitating this patient further. Stool for C. diff was sent and the results are still pending for now. Meanwhile the patient was given a dose of Rocephin and Flagyl. The patient's lipase was at 422. AST and ALT and bilirubin were all within normal limits with mild elevation of the bilirubin up to 1.3. Total protein was 6.2 with an albumin of 3.5. Amylase was 66. Chest x -ray did not show any acute abnormalities. On 09/01/2018 and seeing this patient for a follow-up. Overnight, the patient was given fluids aggressively and a total of 5 L of normal saline was infused. Currently is on 75 mL an hour. He remained hypotensive and the patient was started on pressors and earlier this morning the patient was on 11 g of norepinephrine infusion. Urine output is improved and the patient's produced more than 300 mL of urine output and currently his urine output is about 30 mL an hour. He did have few bouts of diarrhea still. Stools for C. diff 2 has been negative. CAT scan of abdomen was also negative. Abdomen is nondistended and nontender. No. No chills. No headaches. No altered mentation. No worsening shortness of breath. Renal function is improving and the creatinine is down to 4.4. The white cell count is down to 13.8. Hemoglobin is at 8.1. Otherwise, no altered mentation. No other significant events overnight. The patient will be kept in the intensive care unit. Cardiology consultation and GI consultation is pending for now. On 09/02/2018 patient seen in follow-up in the intensive care unit, he is awake and alert, his diarrhea is subsiding, he is a couple of soft stools yesterday, he was seen in consultation by GI service, Questran was added. C. diff was negative. Stool for Cryptosporidium, Giardia and Giardia antigen were negative. Patient still on Levaquin and at 2 mics per minute, he is receiving IV fluids at 75 MLS per hour, today's chest x-ray shows interstitial prominence , bibasilar pleural effusions, changes consistent with congestive heart failure and volume overload. We'll cut the fluids back, patient is tolerating oral intake. Patient is nonoliguric, he is producing urine from 75-170 ML per hour. Today's labs have been reviewed. His leukocytosis is trending down, WBCs 18.8 , hemoglobin is 7.8, INR is 1.2, renal profile is improving, BUN is 34 and creatinine is 2.5 Objective - Vital Signs Vital signs: Vital Signs Temp 97.7 F 12/06/18 12:00 Pulse 80 09/02/18 14:00 Resp 23 09/02/18 14:00 BP 92/48 09/02/18 14:00 Pulse Ox 90 L 09/02/18 14:00 Intake & Output 09/01/18 09/02/18 09/02/18 18:59 06:59 18:59 Intake Total 1766.778 943.532 456.861 Output Total 1340 1450 695 Balance 426.778 -506.468 -238.139 Weight 107.2 kg 110.5 kg 110.5 kg Intake: IV 950 825 415 Sodium Chloride 0.9% 1, 900 825 265 000 ml @ 10 mls/hr IV . Q24H JESS Rx#:[id number] cefTRIAXone 1,000 mg In 50 50 Sodium Chloride 0.9% 50 ml @ 100 mls/hr IVPB Q24HR JESS Rx#:[id number] metroNIDAZOLE-NS PMX 500 100 mg In Saline 1 100ml.bag @ 100 mls/hr IVPB Q6HR JESS Rx#:[id number] Intake, IV Titration 96.778 118.532 41.861 Amount Norepinephrine 16 mg In 96.778 118.532 41.861 Sodium Chloride 0.9% 250 ml @ Titrate IV .Q0M JESS Rx#:[id number] Oral 480 Tube Feeding 240 Output: Urine 1340 1450 695 Other: Voiding Method Indwelling Catheter Indwelling Catheter Indwelling Catheter - Exam GENERAL EXAM: Alert, pleasant, 73-year-old obese white male comfortable in no apparent distress. The patient is resting comfortably in bed on oxygen at 10 L per minute nasal cannula. HEAD: Normocephalic/atraumatic. EYES: Normal reaction of pupils, equal size. Conjunctiva pink, sclera white. NOSE: Clear with pink turbinates. THROAT: No erythema or exudates. NECK: No masses, no JVD, no thyroid enlargement, no adenopathy. The patient also has a triple lumen catheter in the right IJ. CHEST: No chest wall deformity. Symmetrical expansion. LUNGS: Breath sounds are diminished bilaterally and the lungs are clear without any significant crackling at this point in time. CVS: Irregular rate and rhythm, normal S1 and S2, no gallops, no murmurs, no rubs, the patient has occasional paced rhythm and the rhythm is somewhat irregular at this point in time. ABDOMEN: Soft, nontender. No hepatosplenomegaly, normal bowel sounds, no guarding or rigidity. EXTREMITIES: No clubbing, no edema, no cyanosis, diminished pulses and upper and lower extremities. MUSCULOSKELETAL: Muscle strength and tone normal. SPINE: No scoliosis or deformity SKIN: No rashes CENTRAL NERVOUS SYSTEM: Alert and oriented -3. No focal deficits, tone is normal in all 4 extremities. PSYCHIATRIC: Alert and oriented -3. Appropriate affect. Intact judgment and insight. - Labs CBC & Chem 7: 09/02/18 06:00 09/02/18 05:30 Labs: Abnormal Lab Results - Last 24 Hours (Table) 09/01/18 09/01/18 09/01/18 Range/Units 10:10 17:19 21:01 WBC (3.8-10.6) k/uL RBC (4.30-5.90) m/uL Hgb (13.0-17.5) gm/dL Hct (39.0-53.0) % MCHC (31.0-37.0) g/dL RDW (11.5-15.5) % INR (<1.2) Chloride (98-107) mmol/L Carbon Dioxide (22-30) mmol/L BUN (9-20) mg/dL Creatinine (0.66-1.25) mg/dL Glucose (74-99) mg/dL POC Glucose (mg/dL) 161 H 172 H (75-99) mg/dL Calcium (8.4-10.2) mg/dL Lipase (23-300) U/L Stool Lactoferrin POSITIVE H (NEGATIVE) 09/02/18 09/02/18 09/02/18 Range/Units 05:30 06:00 11:10 WBC 18.8 H (3.8-10.6) k/uL RBC 2.81 L (4.30-5.90) m/uL Hgb 7.8 L (13.0-17.5) gm/dL Hct 26.3 L (39.0-53.0) % MCHC 29.8 L (31.0-37.0) g/dL RDW 21.7 H (11.5-15.5) % INR 1.2 H (<1.2) Chloride 112 H (98-107) mmol/L Carbon Dioxide 21 L (22-30) mmol/L BUN 34 H (9-20) mg/dL Creatinine 2.55 H (0.66-1.25) mg/dL Glucose 175 H (74-99) mg/dL POC Glucose (mg/dL) (75-99) mg/dL Calcium 7.3 L (8.4-10.2) mg/dL Lipase 650 H (23-300) U/L Stool Lactoferrin (NEGATIVE) 09/02/18 Range/Units 12:04 WBC (3.8-10.6) k/uL RBC (4.30-5.90) m/uL Hgb (13.0-17.5) gm/dL Hct (39.0-53.0) % MCHC (31.0-37.0) g/dL RDW (11.5-15.5) % INR (<1.2) Chloride (98-107) mmol/L Carbon Dioxide (22-30) mmol/L BUN (9-20) mg/dL Creatinine (0.66-1.25) mg/dL Glucose (74-99) mg/dL POC Glucose (mg/dL) 184 H (75-99) mg/dL Calcium (8.4-10.2) mg/dL Lipase (23-300) U/L Stool Lactoferrin (NEGATIVE) Microbiology - Last 24 Hours (Table) 08/31/18 15:15 Blood Culture - Preliminary Blood No Growth after 24 hours 09/01/18 09:38 Stool Culture - Preliminary Stool Assessment and Plan Plan: 1 acute diarrhea with intravascular volume depletion, dehydration, hypovolemic shock and some vague limited abdominal pain. CAT scan of the abdomen was negative. Stool for C. diff was also negative. The patient is being hydrated. He will be started on Imodium and Questran. 2 acute leukocytosis, currently under investigation. The white cell count is improving. 3 acute hypotension secondary to intravascular volume depletion. Rule out underlying component of sepsis contributing to the low blood pressure. 4 acute kidney injury secondary to intravascular volume depletion. The patient was assisted IV fluids. The patient was given IV normal saline bolus and his urine output is improving and it creatinine is down to 4.4. No evidence of hydronephrosis based on the CAT scan of the abdomen. 5 history of coronary artery disease with previous non-ST segment elevation myocardial infarction requiring emergent cardiac catheterization and stenting of the circumflex 6 previous history of cardiogenic shock post cardiac catheterization and insertion of a stent. The patient was supported by intra-aortic balloon pump is pressors back in March 2018 7 congestion heart failure with ischemic cardiomyopathy and ejection fraction of 30-35%. The patient has an AICD in place 8 diabetes mellitus type 2 9 COPD 10 previous history of ITP 11 chronic anemia 12 elevation of lipase, pancreatitis is doubtful. 13 acute lactic acidosis, improving and the lactic acid level has normalized down to 1.4. Plan: Today's chest x-ray was reviewed by Dr. Yi and showed interstitial prominence, and bibasilar pleural effusions consistent with congestive heart failure and fluid overload. We'll contact IV fluids to KVO, patient is tolerating oral intake, his diarrhea has subsided, he denies any dyspnea or chest pain. Continue weaning vasopressor support, patient is nonoliguric, his renal profile is improving. Continue to follow I performed a history & physical examination of the patient and discussed their management with my nurse practitioner, Kelsi Freeman. I reviewed the nurse practitioner's note and agree with the documented findings and plan of care. Lung sounds are diminished. The findings and the impression was discussed with the patient. I attest to the documentation by the nurse practitioner. Time with Patient: Greater than 30
[2018-09-02] MEDS: ELTROMBOPAG OLAMINE 50 MG PO SCH (16:00)
--- NOTE | 2018-09-02 16:02 | P.PN ---
Subjective Patient is seen in follow-up for acute kidney injury. Renal function is improving with creatinine down to 2.55 today. He's currently on 1 mcg of Levophed. He is off IV fluids. Currently resting in bed. Denies any further diarrhea. No vomiting. Oral intake is poor. He is nonoliguric. Vital signs are stable. General: The patient appeared well nourished and normally developed. HEENT: Head exam is unremarkable. Neck is without jugular venous distension. LUNGS: Lungs are clear to auscultation and percussion. Breath sounds decreased. HEART: Rate and Rhythm are regular. First and second heart sounds normal. No murmurs, rubs or gallops. ABDOMEN: Abdominal exam reveals normal bowel sounds. Non-tender and non- distended. No evidence of peritonitis. EXTREMITITES: No clubbing, cyanosis, or edema. Objective - Vital Signs Vital signs: Vital Signs Temp 97.7 F 09/02/18 12:00 Pulse 80 09/02/18 14:00 Resp 23 09/02/18 14:00 BP 92/48 09/02/18 14:00 Pulse Ox 90 L 09/02/18 14:00 Intake & Output 09/01/18 09/02/18 09/02/18 18:59 06:59 18:59 Intake Total 1766.778 943.532 456.861 Output Total 1340 1450 695 Balance 426.778 -506.468 -238.139 Weight 107.2 kg 110.5 kg 110.5 kg Intake: IV 950 825 415 Sodium Chloride 0.9% 1, 900 825 265 000 ml @ 10 mls/hr IV . Q24H JESS Rx#:[id number] cefTRIAXone 1,000 mg In 50 50 Sodium Chloride 0.9% 50 ml @ 100 mls/hr IVPB Q24HR JESS Rx#:[id number] metroNIDAZOLE-NS PMX 500 100 mg In Saline 1 100ml.bag @ 100 mls/hr IVPB Q6HR JESS Rx#:[id number] Intake, IV Titration 96.778 118.532 41.861 Amount Norepinephrine 16 mg In 96.778 118.532 41.861 Sodium Chloride 0.9% 250 ml @ Titrate IV .Q0M JESS Rx#:[id number] Oral 480 Tube Feeding 240 Output: Urine 1340 1450 695 Other: Voiding Method Indwelling Catheter Indwelling Catheter Indwelling Catheter - Labs CBC & Chem 7: 09/02/18 06:00 09/02/18 05:30 Labs: Abnormal Lab Results - Last 24 Hours (Table) 09/01/18 09/01/18 09/01/18 Range/Units 10:10 17:19 21:01 WBC (3.8-10.6) k/uL RBC (4.30-5.90) m/uL Hgb (13.0-17.5) gm/dL Hct (39.0-53.0) % MCHC (31.0-37.0) g/dL RDW (11.5-15.5) % INR (<1.2) Chloride (98-107) mmol/L Carbon Dioxide (22-30) mmol/L BUN (9-20) mg/dL Creatinine (0.66-1.25) mg/dL Glucose (74-99) mg/dL POC Glucose (mg/dL) 161 H 172 H (75-99) mg/dL Calcium (8.4-10.2) mg/dL Lipase (23-300) U/L Stool Lactoferrin POSITIVE H (NEGATIVE) 09/02/18 09/02/18 09/02/18 Range/Units 05:30 06:00 11:10 WBC 18.8 H (3.8-10.6) k/uL RBC 2.81 L (4.30-5.90) m/uL Hgb 7.8 L (13.0-17.5) gm/dL Hct 26.3 L (39.0-53.0) % MCHC 29.8 L (31.0-37.0) g/dL RDW 21.7 H (11.5-15.5) % INR 1.2 H (<1.2) Chloride 112 H (98-107) mmol/L Carbon Dioxide 21 L (22-30) mmol/L BUN 34 H (9-20) mg/dL Creatinine 2.55 H (0.66-1.25) mg/dL Glucose 175 H (74-99) mg/dL POC Glucose (mg/dL) (75-99) mg/dL Calcium 7.3 L (8.4-10.2) mg/dL Lipase 650 H (23-300) U/L Stool Lactoferrin (NEGATIVE) 09/02/18 Range/Units 12:04 WBC (3.8-10.6) k/uL RBC (4.30-5.90) m/uL Hgb (13.0-17.5) gm/dL Hct (39.0-53.0) % MCHC (31.0-37.0) g/dL RDW (11.5-15.5) % INR (<1.2) Chloride (98-107) mmol/L Carbon Dioxide (22-30) mmol/L BUN (9-20) mg/dL Creatinine (0.66-1.25) mg/dL Glucose (74-99) mg/dL POC Glucose (mg/dL) 184 H (75-99) mg/dL Calcium (8.4-10.2) mg/dL Lipase (23-300) U/L Stool Lactoferrin (NEGATIVE) Microbiology - Last 24 Hours (Table) 08/31/18 15:15 Blood Culture - Preliminary Blood No Growth after 24 hours 09/01/18 09:38 Stool Culture - Preliminary Stool Assessment and Plan Plan: Assessment: 1. Nonoliguric acute kidney injury mostly prerenal secondary to hypotension and hypovolemia secondary to diarrhea. Improved with IV hydration. Creatinine down to 2.55 today. 2. Chronic kidney disease stage III. Baseline creatinine in the range of 1.1- 1.3 secondary to diabetic kidney disease. 3. Systolic CHF with ejection fraction of 35-40%. 4. Coronary artery disease status post stent to the proximal circumflex artery in July 2018. 5. Diabetes mellitus. 6. Anemia of chronic kidney disease. Rule out iron deficiency. 7. Metabolic acidosis secondary to acute kidney injury. 8. Diarrhea. C. diff negative. No acute bowel pathology on CAT scan. GI following. Plan: Currently off IV fluids. Chest x-ray suggestive of vascular congestion. May need to start diuretics tomorrow. Encourage oral intake. Avoid nephrotoxins.
[2018-09-02 17:07] LABS: Glucose,Whole Blood 173 mg/dL (75-99)
[2018-09-02 20:34] LABS: Glucose,Whole Blood 175 mg/dL (75-99)
[2018-09-02] MEDS: ATORVASTATIN 40 MG TAB PO SCH (21:31)
[2018-09-02] MEDS: ASPIRIN 81 MG PO SCH (21:31)
[2018-09-02] MEDS: MAGNESIUM OXIDE 400 MG TAB PO SCH (21:32)
--- NOTE | 2018-09-02 21:44 | P.CONS ---
History of Present Illness - Reason for Consult Consult date: 09/02/18 history of ITP - History of Present Illness the patient is a 73-year-old white male, with multiple medical problems. He was initially seen in consult in 2012 for low platelet counts, which had been present since 2009, mostly in the 40-50,000 range. He had extensive workup which was negative and was is felt to have ITP. He was given a trial of steroids and IVIG without much benefit. He was asymptomatic and therefore was followed with observation, with when necessary platelet transfusions at the time of invasive procedures. After early 2015, he transferred care to Dr. Velazco at [facility], and has followed with him since. He was initially treated with Rituxan again without much response. He was seen by us when admitted in 08/13 for rectal bleeding. He was again managed with when necessary platelet transfusions for colonoscopy. the patient was admitted on 08/10/18 with acute myocardial infarction, and had a cardiac catheterization with circumflex stent placement. He had multiple consultations including cardiac shock, pneumonia, and congestive heart failure. He also had acute on chronic renal decompensation. He did improve and was transferred to the [facility]. He was improving progressively, but then developed diarrhea a few days ago, with increasing frequency. He developed increasing weakness as a result and and there was therefore brought back to the ER and subsequently admitted. He was evaluated by cardiology and there was felt to be concern for underlying atrial fibrillation. The patient had been on antiplatelet therapy after stent placement. During this admission it was felt that he needed to be placed on anticoagulation due to which this consult was placed. The patient has actually been on Promacta for about a year, prescribed by Dr. Velazco. He has tolerated that well. he is currently on a 50 mg per day dose. He last saw Dr. Velazco about 2-3 months ago. During his recent admission, as well as this admission, platelet count has mostly been in the 200- 300 range. WBC has been elevated with predominant neutrophilia, but significant monocytosis has also been noted intermittently. Patient was anemic during his previous hospitalization with some further drop in hemoglobin during this admission was 7.8. Iron studies done during his previous hospitalization were consistent with anemia of chronic disease/inflammation. He denied any obvious bleeding. the patient has actually not been taking Promacta since his cancer to the [facility] Review of Systems Constitutional: Reports poor appetite, Reports weakness, Reports weight loss Eyes: denies blurred vision, denies pain Ears: deny: decreased hearing, ear discharge, earache, tinnitus Ears, nose, mouth and throat: Denies headache, Denies sore throat Cardiovascular: Reports as per HPI, Reports dyspnea on exertion, Reports edema, Reports irregular heart beat Respiratory: Reports as per HPI, Reports congestion, Reports dyspnea Gastrointestinal: Reports diarrhea Genitourinary: Reports urinary hesitancy Musculoskeletal: Reports as per HPI, Reports muscle weakness Integumentary: Denies pruritus, Denies rash Neurological: Reports weakness Psychiatric: Denies anxiety, Denies depression Endocrine: Reports fatigue, Reports weight change Hematologic/Lymphatic: Reports as per HPI Past Medical History Past Medical History: Blood Disorder, Coronary Artery Disease (CAD), Cancer, Chest Pain / Angina, Myocardial Infarction (CT), Musculoskeletal Disorder Additional Past Medical History / Comment(s): Coronary artery disease, previous non-ST segment elevation myocardial infarction, recent hospitalization for cardiogenic shock, stenting of the circumflex artery, systolic heart failure with ejection fraction of 30-35%, prostate cancer with previous radiation therapy that he completed in March 2015, history of ITP, history of AICD placement, history of ventricular tachycardia, diabetes mellitus, ITP Last Myocardial Infarction Date:: 06/16/2015 History of Any Multi-Drug Resistant Organisms: None Reported Past Surgical History: AICD, Appendectomy, Cholecystectomy, Heart Catheterization With Stent, Pacemaker Additional Past Surgical History / Comment(s): Stent to the LAD 06/16/2015. CARDIOVERSION; [facility] 04/26/16, [employer]. Defibrillator placement, insertion and removal of a intra-aortic balloon pump, cardiac catheterization and stenting of the circumflex in March 2018 Past Anesthesia/Blood Transfusion Reactions: No Reported Reaction Date of Last Stent Placement:: 06/16/2015 Type of Cardiac Device: AICD Device Placement Date:: 04/26/16 Past Psychological History: No Psychological Hx Reported Smoking Status: Former smoker Past Alcohol Use History: Rare Past Drug Use History: None Reported - Past Family History Mother Family Medical History: CVA/TIA, Hypertension Father Family Medical History: No Reported History Medications and Allergies Home Medications Medication Instructions Recorded Confirmed Type Atorvastatin [Lipitor] 40 mg PO HS 04/22/16 08/31/18 History Aspirin 81 mg PO HS 10/30/17 08/31/18 History Eltrombopag Olamine [Promacta] 50 mg PO DIRECTED 10/30/17 08/31/18 History Nitroglycerin Sl Tabs [Nitrostat] 0.4 mg SUBLINGUAL Q5M PRN 10/30/17 08/31/18 History Carvedilol [Coreg] 3.125 mg PO BID-W/MEALS tab 08/23/18 08/31/18 Rx Furosemide [Lasix] 40 mg PO BID@0900,1600 tab 08/23/18 08/31/18 Rx Ipratropium-Albuterol Nebulize 3 ml INHALATION RT-BID ampul.neb 08/23/18 Rx [Duoneb 0.5 mg-3 mg/3 ml Soln] Lisinopril [Zestril] 2.5 mg PO DAILY tab 08/23/18 08/31/18 Rx Sodium Bicarbonate Tab 650 mg PO DAILY tab 08/23/18 08/31/18 Rx Spironolactone [Aldactone] 25 mg PO DAILY tab 08/23/18 08/31/18 Rx Ticagrelor [Brilinta] 90 mg PO BID tab 08/23/18 08/31/18 Rx Acetaminophen Tab [Tylenol Tab] 650 mg PO Q6H PRN 08/31/18 08/31/18 History Fluticasone Nasal [place] [Flonase 2 spr EA NOSTRIL DAILY 08/31/18 08/31/18 History Nasal [place]] Insulin Aspart [NovoLOG See Protocol SQ ACHS 08/31/18 08/31/18 History (formulary)] Magnesium Oxide 400 mg PO HS 08/31/18 08/31/18 History Melatonin 3 mg PO HS 08/31/18 08/31/18 History Menthol [Biofreeze] 1 applic TOPICAL TID PRN 08/31/18 08/31/18 History Phenylephrine HCl [Sudafed PE] 10 mg PO BID 08/31/18 08/31/18 History Promethazine Solution 12.5 mg IM Q8H PRN 08/31/18 08/31/18 History Saxagliptin HCl [Onglyza] 5 mg PO DAILY 08/31/18 08/31/18 History Allergies Allergy/AdvReac Type Severity Reaction Status Date / Time No Known Allergies Allergy Verified 08/31/18 15:15 Physical Exam Vitals: Vital Signs Temp Pulse Resp BP Pulse Ox 09/02/18 17:00 70 20 101/56 94 L 09/02/18 16:30 81 18 97/61 88 L 09/02/18 16:00 97.9 F 80 24 105/59 85 L 09/02/18 15:30 71 26 H 84/41 79 L 09/02/18 15:00 73 16 89/57 84 L 09/02/18 14:30 74 19 107/54 96 09/02/18 14:00 80 23 92/48 90 L 09/02/18 13:30 72 24 91/52 97 09/02/18 13:00 82 23 92/48 93 L 09/02/18 12:30 79 21 91/37 90 L 09/02/18 12:00 97.7 F 80 15 111/42 96 09/02/18 11:30 76 12 109/56 96 09/02/18 11:00 74 14 99/51 95 09/02/18 10:30 73 21 105/52 94 L 09/02/18 10:01 72 15 99/54 90 L 09/02/18 09:30 88 18 93 L 09/02/18 09:00 72 17 96/48 94 L 09/02/18 08:30 71 23 100/53 93 L 09/02/18 08:00 97.8 F 81 12 108/63 09/02/18 07:30 86 19 114/59 90 L 09/02/18 07:10 95 09/02/18 07:00 80 23 98/59 96 09/02/18 06:30 70 11 L 105/64 97 09/02/18 06:00 81 18 98/63 09/02/18 05:30 88 22 99/52 96 09/02/18 05:00 81 21 91/54 99 09/02/18 04:30 86 13 113/56 09/02/18 04:00 89 22 115/75 96 09/02/18 03:30 86 23 103/61 96 09/02/18 03:00 88 21 100/63 96 09/02/18 02:30 89 19 96/56 09/02/18 02:00 92 15 109/60 95 09/02/18 01:30 93 30 H 108/51 94 L 12/06/18 01:00 79 26 H 106/58 09/02/18 00:30 87 27 H 112/56 96 09/02/18 00:00 97.8 F 76 26 H 104/64 09/01/18 23:40 73 16 104/55 97 09/01/18 23:30 78 19 110/58 95 09/01/18 23:00 84 29 H 104/53 94 L 09/01/18 22:30 89 28 H 84/34 94 L 09/01/18 22:00 87 24 95 09/01/18 21:30 91 26 H 107/60 96 09/01/18 21:00 98.4 F 88 26 H 114/60 95 09/01/18 20:30 88 25 H 107/63 93 L 09/01/18 20:00 88 33 H 107/71 94 L 09/01/18 19:30 88 26 H 113/57 95 09/01/18 19:00 89 28 H 117/81 97 Intake and Output 09/02/18 09/02/18 09/02/18 06:59 14:59 22:59 Intake Total 667.25 466.861 44.185 Output Total 850 810 345 Balance -182.75 -343.139 -300.815 Intake: IV 600 425 40 Sodium Chloride 0.9% 1, 600 275 40 000 ml @ 10 mls/hr IV . Q24H JESS Rx#:[id number] cefTRIAXone 1,000 mg In 50 Sodium Chloride 0.9% 50 ml @ 100 mls/hr IVPB Q24HR JESS Rx#:[id number] metroNIDAZOLE-NS PMX 500 100 mg In Saline 1 100ml.bag @ 100 mls/hr IVPB Q6HR JESS Rx#:[id number] Intake, IV Titration 67.25 41.861 4.185 Amount Norepinephrine 16 mg In 67.25 41.861 4.185 Sodium Chloride 0.9% 250 ml @ Titrate IV .Q0M JESS Rx#:[id number] Output: Urine 850 810 345 Other: Voiding Method Indwelling Catheter Indwelling Catheter Weight 110.5 kg 110.5 kg - Constitutional General appearance: no acute distress - EENT Eyes: EOMI, PERRLA ENT: hearing grossly normal, normal oropharynx - Neck Neck: no lymphadenopathy Thyroid: bilateral: normal size - Respiratory Respiratory: bilateral: diminished - Cardiovascular Rhythm: regular Heart sounds: normal: S1, S2 - Gastrointestinal General gastrointestinal: hyperactive bowel sounds, soft - Integumentary Integumentary: normal - Neurologic Neurologic: CNII-XII intact - Musculoskeletal Musculoskeletal: generalized weakness, strength equal bilaterally Results CBC & Chem 7: 09/02/18 06:00 09/02/18 05:30 Labs: Abnormal Lab Results - Last 24 Hours (Table) 09/01/18 09/01/18 09/02/18 Range/Units 10:10 21:01 05:30 WBC (3.8-10.6) k/uL RBC (4.30-5.90) m/uL Hgb (13.0-17.5) gm/dL Hct (39.0-53.0) % MCHC (31.0-37.0) g/dL RDW (11.5-15.5) % INR (<1.2) Chloride 112 H (98-107) mmol/L Carbon Dioxide 21 L (22-30) mmol/L BUN 34 H (9-20) mg/dL Creatinine 2.55 H (0.66-1.25) mg/dL Glucose 175 H (74-99) mg/dL POC Glucose (mg/dL) 172 H (75-99) mg/dL Calcium 7.3 L (8.4-10.2) mg/dL Lipase 650 H (23-300) U/L Stool Lactoferrin POSITIVE H (NEGATIVE) 09/02/18 09/02/18 09/02/18 Range/Units 06:00 11:10 12:04 WBC 18.8 H (3.8-10.6) k/uL RBC 2.81 L (4.30-5.90) m/uL Hgb 7.8 L (13.0-17.5) gm/dL Hct 26.3 L (39.0-53.0) % MCHC 29.8 L (31.0-37.0) g/dL RDW 21.7 H (11.5-15.5) % INR 1.2 H (<1.2) Chloride (98-107) mmol/L Carbon Dioxide (22-30) mmol/L BUN (9-20) mg/dL Creatinine (0.66-1.25) mg/dL Glucose (74-99) mg/dL POC Glucose (mg/dL) 184 H (75-99) mg/dL Calcium (8.4-10.2) mg/dL Lipase (23-300) U/L Stool Lactoferrin (NEGATIVE) 09/02/18 Range/Units 17:06 WBC (3.8-10.6) k/uL RBC (4.30-5.90) m/uL Hgb (13.0-17.5) gm/dL Hct (39.0-53.0) % MCHC (31.0-37.0) g/dL RDW (11.5-15.5) % INR (<1.2) Chloride (98-107) mmol/L Carbon Dioxide (22-30) mmol/L BUN (9-20) mg/dL Creatinine (0.66-1.25) mg/dL Glucose (74-99) mg/dL POC Glucose (mg/dL) 173 H (75-99) mg/dL Calcium (8.4-10.2) mg/dL Lipase (23-300) U/L Stool Lactoferrin (NEGATIVE) Microbiology - Last 24 Hours (Table) 08/31/18 15:15 Blood Culture - Preliminary Blood No Growth after 24 hours 09/01/18 09:38 Stool Culture - Preliminary Stool Chest x-ray: report reviewed CT scan - abdomen: report reviewed CT scan - pelvis: report reviewed Assessment and Plan (1) ITP (idiopathic thrombocytopenic purpura) Narrative/Plan: The pt has a h/o ITP, with diagnostic and therapeutic circumstances as described. The pt has responded very well to Promacta.In fact plt count is well within the normal range, despite the pt being off Promacta for about 2 wks. Pt can continue Promacta, but per dosing guidelines, dose should be reduced to 25 mg/d. As the medication is not formulary, and he would need to take it from home , his [employer] Consultant will be contacted to discuss change of dose. Current Visit: No Status: Acute Code(s): D69.3 - IMMUNE THROMBOCYTOPENIC PURPURA SNOMED Code(s): 92344617 (2) Anemia Narrative/Plan: The pt's had anemia w/u during his last admission, which was c/w anemia of chronic disease/inflammation. He has no obvious bleeding. Anemia may be exacerbated this admission by added stress of acute illness, and drop in renal function. Monitor Hgb and transfuse for < 7 Current Visit: No Status: Acute Code(s): D64.9 - ANEMIA, UNSPECIFIED SNOMED Code(s): 302838628 (3) Leukocytosis Narrative/Plan: This would be expected, as a reactive phenomenon, given recent medical events. However, while neutrophilia is predominant, significant monocytosis was also noted. This raises the possibility of an underlying low grade MPN, such as CMML. This does not require treatment , unless symptomatic. Monocyte count is dropping. Will discuss the same with Dr Velazco ,to monitor as outpt for progression Current Visit: Yes Status: Acute Code(s): D72.829 - ELEVATED WHITE BLOOD CELL COUNT, UNSPECIFIED SNOMED Code(s): 279472099 Plan: Defer to the admitting service for management of his multiple other medical problems
[2018-09-02] MEDS ORDERED: POTASSIUM CHLORIDE ER 20 MEQ TAB.ER PO STA (22:23)
[2018-09-02] MEDS: MELATONIN 3 MG TABLET PO SCH (22:30)
[2018-09-03] MEDS ORDERED: POTASSIUM CHLORIDE ER 20 MEQ TAB.ER PO SCH
[2018-09-03 04:26] LABS: Iron Saturation 32.92 (15.00-50.00)
[2018-09-03 05:49] LABS: Anisocytosis Moderate; HCT 28.9 % (39.0-53.0); HGB 8.6 gm/dL (13.0-17.5); Hypochromasia Marked; MCH 28.6 pg (25.0-35.0); MCHC 29.6 g/dL (31.0-37.0); MCV 96.4 fL (80.0-100.0); Macrocytosis Moderate; Mean Platelet Volume 11.1; Platelet Count 260 k/uL (150-450); Poikilocytosis Slight; WBC 13.1 k/uL (3.8-10.6)
[2018-09-03] MEDS: metroNIDAZOLE-NS PMX 500 MG in SALINE 1 100ML.BAG IVPB SCH ×3 (05:53→18:01)
[2018-09-03] MEDS: ELTROMBOPAG OLAMINE 50 MG PO SCH (05:54)
[2018-09-03 05:56] LABS: INR 1.3 (<1.2); Prothrombin Time 13.6 sec (9.0-12.0)
[2018-09-03 06:01] LABS: Albumin 2.9 g/dL (3.5-5.0); Calcium 7.5 mg/dL (8.4-10.2); Magnesium 1.6 mg/dL (1.6-2.3); Phosphorus 3.2 mg/dL (2.5-4.5); Potassium 4.1 mmol/L (3.5-5.1); Total Bilirubin 0.5 mg/dL (0.2-1.3); Total Protein 5.4 g/dL (6.3-8.2)
[2018-09-03 06:37] LABS: Band Neutrophils % 2 %; Lymphocytes # (M) 0.66 k/uL (1.0-4.8); Monocytes # (M) 3.28 k/uL (0-1.0); Myelocytes # (M) 0.13 k/uL (0); Myelocytes % 1 %; Neutrophils % (M) 69 %; Nucleated Red Blood Cells 0 /100 WBC (0-0); Total Cells Counted 200
[2018-09-03 06:38] LABS: Large Platelets Present
--- NOTE | 2018-09-03 06:45 | PN ---
PROGRESS NOTE DATE OF SERVICE: 09/02/2018 PRESENTING COMPLAINT: Tired. INTERVAL HISTORY: Patient remains in the ICU, was recently in the hospital with acute DC, stent, had cardiogenic shock. Also was treated for pneumonia and acute kidney injury on the last admission. Also, has AICD. Patient was admitted now with acute severe diarrhea. C. difficile was negative. Also found to be in acute renal failure. The patient remains on a Levophed drip down to 2 mcg. IV heparin. Found to have underlying atrial fibrillation, has a permanent pacemaker, oxygen down to 2 L, not much of an appetite. Lying in bed. REVIEW OF SYSTEMS: Done for constitutional, cardiovascular, GI, pulmonary; relevant findings as above. CURRENT MEDICATIONS: Current medications are reviewed that include Levophed 2 mcg, IV ceftriaxone, IV heparin, IV Flagyl. PHYSICAL EXAMINATION: On examination, temperature 97.9, pulse 80, respiration 24, blood pressure 105/59, pulse ox 85% on 2 L. GENERAL APPEARANCE: Lying in bed, tired appearing, though more awake. EYES: Pupils equal. Conjunctivae pale. HENT: External appearance of nose and ears normal. Oral cavity dry. NECK: JVD unable to assess. Mass not palpable. RESPIRATORY: Effort increased. LUNGS: Decreased breath sounds. CARDIOVASCULAR: 1st and 2nd sounds normal. Minimal edema. ABDOMEN: Soft, nontender. Liver and spleen not palpable. PSYCHIATRY: Alert and oriented x3. Mood and affect tired appearing. INVESTIGATIONS: White count 18.8, hemoglobin 7.8. Potassium 3.6. BUN 34, creatinine 2.55. Stool also negative for ova and parasites and also negative for C difficile. ASSESSMENT: 1. Acute severe diarrhea with initial Clostridium difficile negative, empirically on Flagyl. 2. Acute renal failure, nonoliguric, likely combination of prerenal from diarrhea and acute tubular necrosis from medications with some improvement. 3. Coronary artery disease with stent to the circumflex and left anterior descending artery recently. 4. Automated implantable cardioverter-defibrillator. 5. Idiopathic thrombocytopenia for which patient is on Promacta. 6. Colonic diverticulosis, asymptomatic. 7. Primary osteoarthritis of the lumbar spine. 8. Obesity; body mass index more than 30. 9. Chronic congestive heart failure from systolic dysfunction ejection fraction 35% to 40% from coronary artery disease. 10.Hypotensive shock from volume loss. Patient remains on Levophed. PLAN: Continue with IV fluids. Supportive care. Broad-spectrum antibiotics. Prognosis remains guarded. The patient has been seen by multiple consultants. Remains in the ICU. Prognosis guarded. Care was discussed with the patient. Will follow closely. MMODL / IJN: [id number] /
[2018-09-03 07:04] LABS: Glucose,Whole Blood 129 mg/dL (75-99)
[2018-09-03] MEDS: INSULIN ASPART 100 UNIT/ML 1 ML 10 ML VIAL SQ SCH ×4 (07:24→21:35)
--- NOTE | 2018-09-03 09:08 | XR ---
EXAMINATION TYPE: XR chest 1V portable DATE OF EXAM: 09/03/2018 COMPARISON: 09/02/2018 HISTORY: Shortness of breath TECHNIQUE: Single frontal view of the chest is obtained. FINDINGS: Small bilateral effusions with diffuse interstitial pattern and subsegmental consolidation s. Heart enlarged and there is a cardiac device.. IMPRESSION: Interval mild improvement in the interstitial pattern with persistent consolidation and bilateral effusions. Correlate for improving CHF.
[2018-09-03] MEDS: PANTOPRAZOLE 40 MG/10 ML VIAL IVP SCH (09:10)
[2018-09-03] MEDS: FLUTICASONE 50MCG/SPRAY NASAL 16GM EA NOSTRIL SCH (09:10)
[2018-09-03] MEDS: LOPERAMIDE 2 MG CAP PO SCH ×4 (09:11→22:04)
[2018-09-03] MEDS: LINAGLIPTIN 5 MG TABLET PO SCH (09:11)
[2018-09-03] MEDS: guaiFENesin 600 MG TABLET.ER PO SCH ×2 (09:11→21:33)
[2018-09-03] MEDS: SODIUM BICARBONATE TAB 650 MG TAB PO SCH ×2 (09:11→21:34)
[2018-09-03] MEDS: TICAGRELOR 90 MG TAB PO SCH ×2 (09:25→21:33)
[2018-09-03] MEDS: CHOLESTYRAMINE (WITH SUGAR) 4 GM PACKET PO SCH ×2 (10:24→18:00)
[2018-09-03 11:23] LABS: Glucose,Whole Blood 173 mg/dL (75-99)
--- NOTE | 2018-09-03 11:44 | P.CN ---
Psychiatric Consult - . Consult:: 09/02/18 16:53 Depression Assessment and Plan Assessment: This is a 73-year-old male patient with multiple medical positive comorbidities who was recently discharged from the hospital after being treated for an acute non-ST segment elevation myocardial infarction. The patient was transferred to [facility]. Noted the patient was admitted to the hospital on 08/10/2018 when acute non-ST segment elevation myocardial infarction. After a complex cardiac catheterization and stenting during which an intra-aortic balloon pump was inserted, the patient did well. The circumflex was stented. The intra- aortic balloon pump was removed. The pressors were weaned off and the patient was discharged to [facility] for further rehabilitation. Note that during the same hospital stay, the patient had developed an acute kidney injury related to hypotension and contrast nephropathy from which she recovered. He has congestion heart failure with systolic dysfunction and ejection fraction of 35-40%. He was treated with cardiogenic shock. Pneumonia was also suspected and he was given a course of antibiotics and to my recollection he was given IV Zosyn. He has an AICD in place. He has previous history of ITP, colonic diverticulosis, osteoarthritis and chronic anemia. Past Medical History Past Medical History: Blood Disorder, Coronary Artery Disease (CAD), Cancer, Chest Pain / Angina, Myocardial Infarction (MD), Musculoskeletal Disorder Additional Past Medical History / Comment(s): Coronary artery disease, previous non-ST segment elevation myocardial infarction, recent hospitalization for cardiogenic shock, stenting of the circumflex artery, systolic heart failure with ejection fraction of 30-35%, prostate cancer with previous radiation therapy that he completed in March 2015, history of ITP, history of AICD placement, history of ventricular tachycardia, diabetes mellitus, ITP Last Myocardial Infarction Date:: 06/16/2015 History of Any Multi-Drug Resistant Organisms: None Reported Past Surgical History: AICD, Appendectomy, Cholecystectomy, Heart Catheterization With Stent, Pacemaker Additional Past Surgical History / Comment(s): Stent to the LAD 06/16/2015. CARDIOVERSION; [employer] 04/26/16, [employer]. Defibrillator placement, insertion and removal of a intra-aortic balloon pump, cardiac catheterization and stenting of the circumflex in March 2018 Past Anesthesia/Blood Transfusion Reactions: No Reported Reaction Date of Last Stent Placement:: 06/16/2015 Type of Cardiac Device: AICD Device Placement Date:: 7/30/16 Past Psychological History: No Psychological Hx Reported Smoking Status: Former smoker Past Alcohol Use History: Rare Past Drug Use History: None Reported - Past Family History Mother Family Medical History: CVA/TIA, Hypertension Father Family Medical History: No Reported History Mental Status Examination - General Appearance: [casual, bizarre, appears older than stated age, Speech/Language: [spontaneous, slow, monotone, expressive, soft] Attitude/Behavior: [cooperative, indifferent] Mood: [euthymic, anxious, elated Affect: [full range] Orientation: [not time, person, place situation] Thought Content: [wnl Risk Factors: [he is not suicidal (ideations, plan), and/or Homicidal (ideations , plan), other] Perception: [ hallucinations (auditory which has been a lifelong not an acute issue Thought Processes: [goal-oriented, Concentration/Attention Span: [wnl] [Per observation and interview with the patient] Recent Memory: [wnl] [ 2 or 3 out of 3 in 3 minutes] Remote Memory: [wnl] [past events, as related history] Intelligence: [average[based on history, based on vocabulary, syntax, grammar, and content] Judgement: [good] [per patient's behavior/history of present illness] Insight: [good [understanding severity of illness/history of present illness] Psychiatric impression: Adjustment disorder due to long hospitalization with mild depressive symptoms which required no medication Psychiatric recommendations: No further psychiatric recommendations for this time Thank you for the consult Colin Hoover D.O. PhD (1) Depressed mood Current Visit: Yes Status: Acute Code(s): F32.9 - MAJOR DEPRESSIVE DISORDER , SINGLE EPISODE, UNSPECIFIED SNOMED Code(s): 407261315 Time with Patient: Less than 30
--- NOTE | 2018-09-03 12:47 | P.PN ---
Subjective Progress Note Date: 09/03/18 Principal diagnosis: acute diarrhea dehydration SAI Diarrhea improved BM 224 hours. Feels "much better". Pressors discontinued. WBC improved to 13. Afebrile. Lactoferrin positive. Denies AP. Objective - Vital Signs Vital signs: Vital Signs Temp 98.2 F 09/03/18 08:00 Pulse 69 09/03/18 11:00 Resp 30 H 09/03/18 11:00 BP 103/60 09/03/18 11:00 Pulse Ox 97 09/03/18 11:00 Intake & Output 09/02/18 09/03/18 09/03/18 18:59 06:59 18:59 Intake Total 511.046 864.775 230 Output Total 1155 765 170 Balance -643.954 99.775 60 Weight 110.5 kg 117.1 kg 117.1 kg Intake: IV 465 120 50 Sodium Chloride 0.9% 1, 315 120 50 000 ml @ 10 mls/hr IV . Q24H [facility] Rx#:[id number] cefTRIAXone 1,000 mg In 50 Sodium Chloride 0.9% 50 ml @ 100 mls/hr IVPB Q24HR [facility] Rx#:[id number] metroNIDAZOLE-NS PMX 500 100 mg In Saline 1 100ml.bag @ 100 mls/hr IVPB Q6HR [facility] Rx#:[id number] Intake, IV Titration 46.046 24.775 Amount Norepinephrine 16 mg In 46.046 24.775 Sodium Chloride 0.9% 250 ml @ Titrate IV .Q0M [facility] Rx#:[id number] Oral 720 180 Output: Urine 1155 765 170 Other: Voiding Method Indwelling Catheter Indwelling Catheter Indwelling Catheter # Bowel Movements 1 - Exam General appearance: The patient is alert, oriented, in no acute distress. HET: Head is normocephalic and atraumatic. Pupils are equal and reactive. Oropharynx is clear without lesions. Neck: Supple without lymphadenopathy. Trachea midline. Heart: S1 S2. Regular rate and rhythm. Lungs: No crackles or wheezes are heard. Abdomen: Soft, nontender, nondistended with bowel sounds. No peritoneal signs. No palpable organomegaly or masses. - Labs CBC & Chem 7: 09/03/18 04:17 09/03/18 04:17 Labs: Abnormal Lab Results - Last 24 Hours (Table) 09/02/18 09/02/18 09/02/18 Range/Units 05:30 17:06 20:23 WBC (3.8-10.6) k/uL RBC (4.30-5.90) m/uL Hgb (13.0-17.5) gm/dL Hct (39.0-53.0) % MCHC (31.0-37.0) g/dL RDW (11.5-15.5) % Neutrophils # (Manual) (1.3-7.7) k/uL Lymphocytes # (Manual) (1.0-4.8) k/uL Monocytes # (Manual) (0-1.0) k/uL Myelocytes # (Manual) (0) k/uL PT (9.0-12.0) sec INR (<1.2) APTT 57.1 H (22.0-30.0) sec Chloride (98-107) mmol/L Carbon Dioxide (22-30) mmol/L BUN (9-20) mg/dL Creatinine (0.66-1.25) mg/dL Glucose (74-99) mg/dL POC Glucose (mg/dL) 173 H (75-99) mg/dL Calcium (8.4-10.2) mg/dL Ferritin 656.7 H (22.0-322.0) ng/mL Total Protein (6.3-8.2) g/dL Albumin (3.5-5.0) g/dL 09/02/18 09/03/18 09/03/18 Range/Units 20:31 04:17 04:17 WBC 13.1 H (3.8-10.6) k/uL RBC 3.00 L (4.30-5.90) m/uL Hgb 8.6 L (13.0-17.5) gm/dL Hct 28.9 L (39.0-53.0) % MCHC 29.6 L (31.0-37.0) g/dL RDW 22.0 H (11.5-15.5) % Neutrophils # (Manual) 9.30 H (1.3-7.7) k/uL Lymphocytes # (Manual) 0.66 L (1.0-4.8) k/uL Monocytes # (Manual) 3.28 H (0-1.0) k/uL Myelocytes # (Manual) 0.13 H (0) k/uL PT (9.0-12.0) sec INR (<1.2) APTT (22.0-30.0) sec Chloride 114 H (98-107) mmol/L Carbon Dioxide 20 L (22-30) mmol/L BUN 27 H (9-20) mg/dL Creatinine 1.81 H (0.66-1.25) mg/dL Glucose 122 H (74-99) mg/dL POC Glucose (mg/dL) 175 H (75-99) mg/dL Calcium 7.5 L (8.4-10.2) mg/dL Ferritin (22.0-322.0) ng/mL Total Protein 5.4 L (6.3-8.2) g/dL Albumin 2.9 L (3.5-5.0) g/dL 09/03/18 09/03/18 09/03/18 Range/Units 04:17 06:29 07:01 WBC (3.8-10.6) k/uL RBC (4.30-5.90) m/uL Hgb (13.0-17.5) gm/dL Hct (39.0-53.0) % MCHC (31.0-37.0) g/dL RDW (11.5-15.5) % Neutrophils # (Manual) (1.3-7.7) k/uL Lymphocytes # (Manual) (1.0-4.8) k/uL Monocytes # (Manual) (0-1.0) k/uL Myelocytes # (Manual) (0) k/uL PT 13.6 H (9.0-12.0) sec INR 1.3 H (<1.2) APTT 52.9 H (22.0-30.0) sec Chloride (98-107) mmol/L Carbon Dioxide (22-30) mmol/L BUN (9-20) mg/dL Creatinine (0.66-1.25) mg/dL Glucose (74-99) mg/dL POC Glucose (mg/dL) 129 H (75-99) mg/dL Calcium (8.4-10.2) mg/dL Ferritin (22.0-322.0) ng/mL Total Protein (6.3-8.2) g/dL Albumin (3.5-5.0) g/dL 09/03/18 Range/Units 11:20 WBC (3.8-10.6) k/uL RBC (4.30-5.90) m/uL Hgb (13.0-17.5) gm/dL Hct (39.0-53.0) % MCHC (31.0-37.0) g/dL RDW (11.5-15.5) % Neutrophils # (Manual) (1.3-7.7) k/uL Lymphocytes # (Manual) (1.0-4.8) k/uL Monocytes # (Manual) (0-1.0) k/uL Myelocytes # (Manual) (0) k/uL PT (9.0-12.0) sec INR (<1.2) APTT (22.0-30.0) sec Chloride (98-107) mmol/L Carbon Dioxide (22-30) mmol/L BUN (9-20) mg/dL Creatinine (0.66-1.25) mg/dL Glucose (74-99) mg/dL POC Glucose (mg/dL) 173 H (75-99) mg/dL Calcium (8.4-10.2) mg/dL Ferritin (22.0-322.0) ng/mL Total Protein (6.3-8.2) g/dL Albumin (3.5-5.0) g/dL Microbiology - Last 24 Hours (Table) 08/31/18 15:15 Blood Culture - Preliminary Blood No Growth after 48 hours Assessment and Plan (1) Diarrhea Narrative/Plan: Acute severe diarrheal illness profound leukocytosis dehydration acute renal failure in a patient with recent hospitalization for cardiogenic shock pneumonia status post recent PCI stent with a history of clostridium difficilel colitis 2017 status post unremarkable colonoscopy at [facility]. Clostridium difficile testing EIA negative. CT abdomen and pelvis unremarkable for any acute bowel pathology. Underlying self limiting infectious colitis cannot be excluded. Current Visit: Yes Status: Acute Code(s): R19.7 - DIARRHEA, UNSPECIFIED SNOMED Code(s): 42193261 (2) Leukocytosis Current Visit: Yes Status: Acute Code(s): D72.829 - ELEVATED WHITE BLOOD CELL COUNT, UNSPECIFIED SNOMED Code(s): 410969591 (3) ARF (acute renal failure) Current Visit: Yes Status: Acute Code(s): N17.9 - ACUTE KIDNEY FAILURE, UNSPECIFIED SNOMED Code(s): 05655493 (4) Dehydration Current Visit: Yes Status: Acute Code(s): E86.0 - DEHYDRATION SNOMED Code( s): 71494111 Plan: 1. Continue Imodium. IV antibiotics. Questran 4 g twice daily to 2 hours before after meals. Inpatient endoscopic exams not planned at this time. We' ll follow closely with you. Thank you for this kind referral and the opportunity to participate in the care of your patient. This consultation was discussed with Dr. Montalvo. The impression and plan of care have been directed as dictated.
[2018-09-03] MEDS: HEPARIN SOD,PORK IN 0.45% NACL 25,000 UNIT in 0.45% NACL 1 500ML.BAG IV SCH (13:57)
--- NOTE | 2018-09-03 15:13 | P.PN ---
Subjective Progress Note Date: 09/03/18 Principal diagnosis: Diarrhea, with intravascular volume depletion, hypovolemic shock This is a 73-year-old male patient with multiple medical positive comorbidities who was recently discharged from the hospital after being treated for an acute non-ST segment elevation myocardial infarction. The patient was transferred to [facility]. Noted the patient was admitted to the hospital on 08/10/2018 when acute non-ST segment elevation myocardial infarction. After a complex cardiac catheterization and stenting during which an intra-aortic balloon pump was inserted, the patient did well. The circumflex was stented. The intra- aortic balloon pump was removed. The pressors were weaned off and the patient was discharged to [facility] for further rehabilitation. Note that during the same hospital stay, the patient had developed an acute kidney injury related to hypotension and contrast nephropathy from which she recovered. He has congestion heart failure with systolic dysfunction and ejection fraction of 35-40%. He was treated with cardiogenic shock. Pneumonia was also suspected and he was given a course of antibiotics and to my recollection he was given IV Zosyn. He has an AICD in place. He has previous history of ITP, colonic diverticulosis, osteoarthritis and chronic anemia. Following his discharge, the patient was gradually rehabilitating and according to the family was doing well until around 3 days ago when he started having profuse watery diarrhea. The diarrhea was constant multiple episodes, liquidy diarrhea more than 10 episodes with some limited vague abdominal pain. Apparently the patient was unable to keep up with his oral intake and the patient became progressively more lethargic. He came into the emergency departmentthis afternoon with marked abnormalities. His white cell count was elevated at 43.7. His hemoglobin was at 8.3. He had acute kidney injury with a creatinine of 4.5 and a BUN of 42. His serum lactic acid level was at 2.5. Troponin was at 0.162. The patient was hypotensive with a systolic in the mid 70s. The patient was given a total of 3 L of IV fluids. Urine output remains minimal. In the ICU inserted triple lumen catheter and we are in the process of resuscitating this patient further. Stool for C. diff was sent and the results are still pending for now. Meanwhile the patient was given a dose of Rocephin and Flagyl. The patient's lipase was at 422. AST and ALT and bilirubin were all within normal limits with mild elevation of the bilirubin up to 1.3. Total protein was 6.2 with an albumin of 3.5. Amylase was 66. Chest x -ray did not show any acute abnormalities. On 09/01/2018 and seeing this patient for a follow-up. Overnight, the patient was given fluids aggressively and a total of 5 L of normal saline was infused. Currently is on 75 mL an hour. He remained hypotensive and the patient was started on pressors and earlier this morning the patient was on 11 g of norepinephrine infusion. Urine output is improved and the patient's produced more than 300 mL of urine output and currently his urine output is about 30 mL an hour. He did have few bouts of diarrhea still. Stools for C. diff 2 has been negative. CAT scan of abdomen was also negative. Abdomen is nondistended and nontender. No. No chills. No headaches. No altered mentation. No worsening shortness of breath. Renal function is improving and the creatinine is down to 4.4. The white cell count is down to 13.8. Hemoglobin is at 8.1. Otherwise, no altered mentation. No other significant events overnight. The patient will be kept in the intensive care unit. Cardiology consultation and GI consultation is pending for now. On 09/02/2018 patient seen in follow-up in the intensive care unit, he is awake and alert, his diarrhea is subsiding, he is a couple of soft stools yesterday, he was seen in consultation by GI service, Questran was added. C. diff was negative. Stool for Cryptosporidium, Giardia and Giardia antigen were negative. Patient still on Levaquin and at 2 mics per minute, he is receiving IV fluids at 75 MLS per hour, today's chest x-ray shows interstitial prominence , bibasilar pleural effusions, changes consistent with congestive heart failure and volume overload. We'll cut the fluids back, patient is tolerating oral intake. Patient is nonoliguric, he is producing urine from 75-170 ML per hour. Today's labs have been reviewed. His leukocytosis is trending down, WBCs 18.8 , hemoglobin is 7.8, INR is 1.2, renal profile is improving, BUN is 34 and creatinine is 2.5 09/03/2018 patient seen in follow-up in the intensive care unit. Patient is stable, his diarrhea is slowing down, and one soft bowel movement last night, and one soft bowel movement this morning. Hemodynamically stable, 0.9 normal saline at a rate of 20 ML per hour, heparin infusion is at 9 units per kilo per hour. Lab work has been reviewed, WBC is 13.1, leukocytosis is improving, hemoglobin is 8.6, platelet count was 260, INR is 1.3, sodium is 143, potassium is 4.1, chloride is 114, CO2 is 20, B1 is 27, creatinine is 1.81. Lung sounds. Lung sounds are positive for some crackles at the right lower lobe, lung sounds are unremarkable. Patient has occasional productive cough with clear torres sputum. Cultures are negative. Hematology has been consulted for her history of idiopathic thrombocytopenic purpura and their consult was noted. Objective - Vital Signs Vital signs: Vital Signs Temp 98.2 F 09/03/18 08:00 Pulse 78 09/03/18 14:00 Resp 19 09/03/18 14:00 BP 105/85 09/03/18 14:00 Pulse Ox 96 09/03/18 12:00 Intake & Output 09/02/18 09/03/18 09/03/18 18:59 06:59 18:59 Intake Total 511.046 864.775 926.311 Output Total 1155 765 385 Balance -643.954 99.775 541.311 Weight 110.5 kg 117.1 kg 117.1 kg Intake: IV 465 120 80 Sodium Chloride 0.9% 1, 315 120 80 000 ml @ 10 mls/hr IV . Q24H [facility] Rx#:[id number] cefTRIAXone 1,000 mg In 50 Sodium Chloride 0.9% 50 ml @ 100 mls/hr IVPB Q24HR [facility] Rx#:[id number] metroNIDAZOLE-NS PMX 500 100 mg In Saline 1 100ml.bag @ 100 mls/hr IVPB Q6HR [facility] Rx#:[id number] Intake, IV Titration 46.046 24.775 486.311 Amount Heparin Sod,Pork in 0.45% 486.311 NaCl 25,000 unit In 0.45 % NaCl 1 500ml.bag @ 9 UNITS/KG/HR 19.89 mls/hr IV .Q24H [facility] Rx#: [id number] Norepinephrine 16 mg In 46.046 24.775 Sodium Chloride 0.9% 250 ml @ Titrate IV .Q0M [facility] Rx#:[id number] Oral 720 360 Output: Urine 1155 765 385 Other: Voiding Method Indwelling Catheter Indwelling Catheter Indwelling Catheter # Bowel Movements 1 - Exam GENERAL EXAM: Alert, pleasant, 73-year-old obese white male comfortable in no apparent distress. The patient is resting comfortably in bed on oxygen at 1 L per minute nasal cannula. HEAD: Normocephalic/atraumatic. EYES: Normal reaction of pupils, equal size. Conjunctiva pink, sclera white. NOSE: Clear with pink turbinates. THROAT: No erythema or exudates. NECK: No masses, no JVD, no thyroid enlargement, no adenopathy. The patient also has a triple lumen catheter in the right IJ. CHEST: No chest wall deformity. Symmetrical expansion. LUNGS: Breath sounds are diminished bilaterally and the lungs are clear with some limited crackles right lower lobe CVS: Irregular rate and rhythm, normal S1 and S2, no gallops, no murmurs, no rubs, the patient has occasional paced rhythm and the rhythm is somewhat irregular at this point in time. ABDOMEN: Soft, nontender. No hepatosplenomegaly, normal bowel sounds, no guarding or rigidity. EXTREMITIES: No clubbing, no edema, no cyanosis, diminished pulses and upper and lower extremities. MUSCULOSKELETAL: Muscle strength and tone normal. SPINE: No scoliosis or deformity SKIN: No rashes CENTRAL NERVOUS SYSTEM: Alert and oriented -3. No focal deficits, tone is normal in all 4 extremities. PSYCHIATRIC: Alert and oriented -3. Appropriate affect. Intact judgment and insight. - Labs CBC & Chem 7: 09/03/18 04:17 09/03/18 04:17 Labs: Abnormal Lab Results - Last 24 Hours (Table) 09/02/18 09/02/18 09/02/18 Range/Units 05:30 17:06 20:23 WBC (3.8-10.6) k/uL RBC (4.30-5.90) m/uL Hgb (13.0-17.5) gm/dL Hct (39.0-53.0) % MCHC (31.0-37.0) g/dL RDW (11.5-15.5) % Neutrophils # (Manual) (1.3-7.7) k/uL Lymphocytes # (Manual) (1.0-4.8) k/uL Monocytes # (Manual) (0-1.0) k/uL Myelocytes # (Manual) (0) k/uL PT (9.0-12.0) sec INR (<1.2) APTT 57.1 H (22.0-30.0) sec Chloride (98-107) mmol/L Carbon Dioxide (22-30) mmol/L BUN (9-20) mg/dL Creatinine (0.66-1.25) mg/dL Glucose (74-99) mg/dL POC Glucose (mg/dL) 173 H (75-99) mg/dL Calcium (8.4-10.2) mg/dL Ferritin 656.7 H (22.0-322.0) ng/mL Total Protein (6.3-8.2) g/dL Albumin (3.5-5.0) g/dL 09/02/18 09/03/18 09/03/18 Range/Units 20:31 04:17 04:17 WBC 13.1 H (3.8-10.6) k/uL RBC 3.00 L (4.30-5.90) m/uL Hgb 8.6 L (13.0-17.5) gm/dL Hct 28.9 L (39.0-53.0) % MCHC 29.6 L (31.0-37.0) g/dL RDW 22.0 H (11.5-15.5) % Neutrophils # (Manual) 9.30 H (1.3-7.7) k/uL Lymphocytes # (Manual) 0.66 L (1.0-4.8) k/uL Monocytes # (Manual) 3.28 H (0-1.0) k/uL Myelocytes # (Manual) 0.13 H (0) k/uL PT (9.0-12.0) sec INR (<1.2) APTT (22.0-30.0) sec Chloride 114 H (98-107) mmol/L Carbon Dioxide 20 L (22-30) mmol/L BUN 27 H (9-20) mg/dL Creatinine 1.81 H (0.66-1.25) mg/dL Glucose 122 H (74-99) mg/dL POC Glucose (mg/dL) 175 H (75-99) mg/dL Calcium 7.5 L (8.4-10.2) mg/dL Ferritin (22.0-322.0) ng/mL Total Protein 5.4 L (6.3-8.2) g/dL Albumin 2.9 L (3.5-5.0) g/dL 09/03/18 09/03/18 09/03/18 Range/Units 04:17 06:29 07:01 WBC (3.8-10.6) k/uL RBC (4.30-5.90) m/uL Hgb (13.0-17.5) gm/dL Hct (39.0-53.0) % MCHC (31.0-37.0) g/dL RDW (11.5-15.5) % Neutrophils # (Manual) (1.3-7.7) k/uL Lymphocytes # (Manual) (1.0-4.8) k/uL Monocytes # (Manual) (0-1.0) k/uL Myelocytes # (Manual) (0) k/uL PT 13.6 H (9.0-12.0) sec INR 1.3 H (<1.2) APTT 52.9 H (22.0-30.0) sec Chloride (98-107) mmol/L Carbon Dioxide (22-30) mmol/L BUN (9-20) mg/dL Creatinine (0.66-1.25) mg/dL Glucose (74-99) mg/dL POC Glucose (mg/dL) 129 H (75-99) mg/dL Calcium (8.4-10.2) mg/dL Ferritin (22.0-322.0) ng/mL Total Protein (6.3-8.2) g/dL Albumin (3.5-5.0) g/dL 09/03/18 Range/Units 11:20 WBC (3.8-10.6) k/uL RBC (4.30-5.90) m/uL Hgb (13.0-17.5) gm/dL Hct (39.0-53.0) % MCHC (31.0-37.0) g/dL RDW (11.5-15.5) % Neutrophils # (Manual) (1.3-7.7) k/uL Lymphocytes # (Manual) (1.0-4.8) k/uL Monocytes # (Manual) (0-1.0) k/uL Myelocytes # (Manual) (0) k/uL PT (9.0-12.0) sec INR (<1.2) APTT (22.0-30.0) sec Chloride (98-107) mmol/L Carbon Dioxide (22-30) mmol/L BUN (9-20) mg/dL Creatinine (0.66-1.25) mg/dL Glucose (74-99) mg/dL POC Glucose (mg/dL) 173 H (75-99) mg/dL Calcium (8.4-10.2) mg/dL Ferritin (22.0-322.0) ng/mL Total Protein (6.3-8.2) g/dL Albumin (3.5-5.0) g/dL Microbiology - Last 24 Hours (Table) 08/31/18 15:15 Blood Culture - Preliminary Blood No Growth after 48 hours Assessment and Plan Plan: 1 acute diarrhea with intravascular volume depletion, dehydration, hypovolemic shock and some vague limited abdominal pain. CAT scan of the abdomen was negative. Stool for C. diff was also negative. The patient is being hydrated. He will be started on Imodium and Questran. 2 acute leukocytosis, currently under investigation. The white cell count is improving. 3 acute hypotension secondary to intravascular volume depletion. Rule out underlying component of sepsis contributing to the low blood pressure. 4 acute kidney injury secondary to intravascular volume depletion. The patient was assisted IV fluids. The patient was given IV normal saline bolus and his urine output is improving and it creatinine is down to 4.4. No evidence of hydronephrosis based on the CAT scan of the abdomen. 5 history of coronary artery disease with previous non-ST segment elevation myocardial infarction requiring emergent cardiac catheterization and stenting of the circumflex 6 previous history of cardiogenic shock post cardiac catheterization and insertion of a stent. The patient was supported by intra-aortic balloon pump is pressors back in March 2018 7 congestion heart failure with ischemic cardiomyopathy and ejection fraction of 30-35%. The patient has an AICD in place 8 diabetes mellitus type 2 9 COPD 10 previous history of ITP 11 chronic anemia 12 elevation of lipase, pancreatitis is doubtful. 13 acute lactic acidosis, improving and the lactic acid level has normalized down to 1.4. Plan: Hemodynamically patient is stable, hematology is on in regards to initiation of oral anticoagulation. Diarrhea has improved, patient only had 1 BM last night and 1 BM this morning and both were formed. Hemodynamically he is on no vasopressors, no dyspnea or chest pain, continue with current medical treatment. Increase activity as tolerated, with the patient sitting up in the chair. Continue to follow. I performed a history & physical examination of the patient and discussed their management with my nurse practitioner, Kelsi Freeman. I reviewed the nurse practitioner's note and agree with the documented findings and plan of care. Lung sounds are diminished. The findings and the impression was discussed with the patient. I attest to the documentation by the nurse practitioner. Time with Patient: Greater than 30
[2018-09-03 15:49] LABS: Hemoglobin A1C 6.4 % (4.0-6.0)
[2018-09-03] MEDS: SODIUM CHLORIDE 0.9% 1,000 ML IV SCH (16:07)
--- NOTE | 2018-09-03 16:26 | P.PN ---
Subjective Progress Note Date: 09/03/18 This is a 73-year-old gentleman with history of known ischemic heart disease with recent stent placement of the circumflex for in-stent stenosis and chronic congestive heart failure and cardiomyopathy who is basically admitted to the hospital with dehydration and renal failure related to his diarrhea. Patient is feeling better. The diarrhea has become less frequent. His creatinine has shown improvement. He was sitting about 70 mL an hour. Denies any chest pain or shortness of breath. Lungs do not show any Sigmund and also wheezing at this time. Heart rhythm seemed to be his regular. EKG size to of atrial fibrillation with intermittent pacing. Pacemaker evaluation yesterday did not reveal any defibrillation. We'll going to evaluate pacemaker again today. If there is atrial fibrillation, patient may become a candidate for anticoagulation. Otherwise, we'll continue current medical therapy and follow closely for development of CHF. Chest x-ray showed possible mild vascular congestion. 09/03/2018: This patient is admitted to the hospital with diarrhea, dehydration and renal failure. Patient also developed intermittent atrial fibrillation which was documented by pacemaker evaluation. Patient was put on heparin. Hematology consult was obtained because of known thrombocytopenic purpura. Patient will be considered for oral anticoagulation. Patient otherwise doing well. His nose wall movements also improving. Denies any chest pain. Lungs show some few crackles at the right base. We'll continue current medical therapy. His creatinine also showed improvement Objective - Vital Signs Vital signs: Vital Signs Temp 98.2 F 09/03/18 08:00 Pulse 74 09/03/18 15:00 Resp 22 09/03/18 15:00 BP 110/62 09/03/18 15:00 Pulse Ox 93 L 09/03/18 15:00 Intake & Output 09/02/18 09/03/18 09/03/18 18:59 06:59 18:59 Intake Total 511.046 864.775 946.311 Output Total 1155 765 445 Balance -643.954 99.775 501.311 Weight 110.5 kg 117.1 kg 117.1 kg Intake: IV 465 120 100 Sodium Chloride 0.9% 1, 315 120 100 000 ml @ 10 mls/hr IV . Q24H [facility] Rx#:[id number] cefTRIAXone 1,000 mg In 50 Sodium Chloride 0.9% 50 ml @ 100 mls/hr IVPB Q24HR [facility] Rx#:[id number] metroNIDAZOLE-NS PMX 500 100 mg In Saline 1 100ml.bag @ 100 mls/hr IVPB Q6HR [facility] Rx#:[id number] Intake, IV Titration 46.046 24.775 486.311 Amount Heparin Sod,Pork in 0.45% 486.311 NaCl 25,000 unit In 0.45 % NaCl 1 500ml.bag @ 9 UNITS/KG/HR 19.89 mls/hr IV .Q24H [facility] Rx#: [id number] Norepinephrine 16 mg In 46.046 24.775 Sodium Chloride 0.9% 250 ml @ Titrate IV .Q0M [facility] Rx#:[id number] Oral 720 360 Output: Urine 1155 765 445 Other: Voiding Method Indwelling Catheter Indwelling Catheter Indwelling Catheter # Bowel Movements 1 - Exam GENERAL EXAM: Patient is alert and oriented and doesn't appear to be in any acute distress HEENT: Normocephalic. Normal reaction of pupils, equal size, normal range of extraocular motion. No erythema or exudates in the throat. NECK: No masses, no nuchal rigidity. CHEST: No chest wall deformity. LUNGS: Few crackles at the right base. No wheezing. HEART: S1 and S2 normal with no audible mumurs or gallops. Irregular rhythm ABDOMEN: No hepatosplenomegaly, normal bowel sounds, no guarding or rigidity. SKIN: No rashes CENTRAL NERVOUS SYSTEM: No focal deficits. EXTREMITIES: No cyanosis, clubbing or edema. - Labs CBC & Chem 7: 09/03/18 04:17 09/03/18 04:17 Labs: Abnormal Lab Results - Last 24 Hours (Table) 09/02/18 09/02/18 09/02/18 Range/Units 05:30 17:06 20:23 WBC (3.8-10.6) k/uL RBC (4.30-5.90) m/uL Hgb (13.0-17.5) gm/dL Hct (39.0-53.0) % MCHC (31.0-37.0) g/dL RDW (11.5-15.5) % Neutrophils # (Manual) (1.3-7.7) k/uL Lymphocytes # (Manual) (1.0-4.8) k/uL Monocytes # (Manual) (0-1.0) k/uL Myelocytes # (Manual) (0) k/uL PT (9.0-12.0) sec INR (<1.2) APTT 57.1 H (22.0-30.0) sec Chloride (98-107) mmol/L Carbon Dioxide (22-30) mmol/L BUN (9-20) mg/dL Creatinine (0.66-1.25) mg/dL Glucose (74-99) mg/dL POC Glucose (mg/dL) 173 H (75-99) mg/dL Hemoglobin A1c (4.0-6.0) % Calcium (8.4-10.2) mg/dL Ferritin 656.7 H (22.0-322.0) ng/mL Total Protein (6.3-8.2) g/dL Albumin (3.5-5.0) g/dL 09/02/18 09/03/18 09/03/18 Range/Units 20:31 04:17 04:17 WBC (3.8-10.6) k/uL RBC (4.30-5.90) m/uL Hgb (13.0-17.5) gm/dL Hct (39.0-53.0) % MCHC (31.0-37.0) g/dL RDW (11.5-15.5) % Neutrophils # (Manual) (1.3-7.7) k/uL Lymphocytes # (Manual) (1.0-4.8) k/uL Monocytes # (Manual) (0-1.0) k/uL Myelocytes # (Manual) (0) k/uL PT (9.0-12.0) sec INR (<1.2) APTT (22.0-30.0) sec Chloride 114 H (98-107) mmol/L Carbon Dioxide 20 L (22-30) mmol/L BUN 27 H (9-20) mg/dL Creatinine 1.81 H (0.66-1.25) mg/dL Glucose 122 H (74-99) mg/dL POC Glucose (mg/dL) 175 H (75-99) mg/dL Hemoglobin A1c 6.4 H (4.0-6.0) % Calcium 7.5 L (8.4-10.2) mg/dL Ferritin (22.0-322.0) ng/mL Total Protein 5.4 L (6.3-8.2) g/dL Albumin 2.9 L (3.5-5.0) g/dL 09/03/18 09/03/18 09/03/18 Range/Units 04:17 04:17 06:29 WBC 13.1 H (3.8-10.6) k/uL RBC 3.00 L (4.30-5.90) m/uL Hgb 8.6 L (13.0-17.5) gm/dL Hct 28.9 L (39.0-53.0) % MCHC 29.6 L (31.0-37.0) g/dL RDW 22.0 H (11.5-15.5) % Neutrophils # (Manual) 9.30 H (1.3-7.7) k/uL Lymphocytes # (Manual) 0.66 L (1.0-4.8) k/uL Monocytes # (Manual) 3.28 H (0-1.0) k/uL Myelocytes # (Manual) 0.13 H (0) k/uL PT 13.6 H (9.0-12.0) sec INR 1.3 H (<1.2) APTT 52.9 H (22.0-30.0) sec Chloride (98-107) mmol/L Carbon Dioxide (22-30) mmol/L BUN (9-20) mg/dL Creatinine (0.66-1.25) mg/dL Glucose (74-99) mg/dL POC Glucose (mg/dL) (75-99) mg/dL Hemoglobin A1c (4.0-6.0) % Calcium (8.4-10.2) mg/dL Ferritin (22.0-322.0) ng/mL Total Protein (6.3-8.2) g/dL Albumin (3.5-5.0) g/dL 09/03/18 09/03/18 Range/Units 07:01 11:20 WBC (3.8-10.6) k/uL RBC (4.30-5.90) m/uL Hgb (13.0-17.5) gm/dL Hct (39.0-53.0) % MCHC (31.0-37.0) g/dL RDW (11.5-15.5) % Neutrophils # (Manual) (1.3-7.7) k/uL Lymphocytes # (Manual) (1.0-4.8) k/uL Monocytes # (Manual) (0-1.0) k/uL Myelocytes # (Manual) (0) k/uL PT (9.0-12.0) sec INR (<1.2) APTT (22.0-30.0) sec Chloride (98-107) mmol/L Carbon Dioxide (22-30) mmol/L BUN (9-20) mg/dL Creatinine (0.66-1.25) mg/dL Glucose (74-99) mg/dL POC Glucose (mg/dL) 129 H 173 H (75-99) mg/dL Hemoglobin A1c (4.0-6.0) % Calcium (8.4-10.2) mg/dL Ferritin (22.0-322.0) ng/mL Total Protein (6.3-8.2) g/dL Albumin (3.5-5.0) g/dL Microbiology - Last 24 Hours (Table) 08/31/18 15:15 Blood Culture - Preliminary Blood No Growth after 48 hours Assessment and Plan (1) ARF (acute renal failure) Current Visit: Yes Status: Acute Code(s): N17.9 - ACUTE KIDNEY FAILURE, UNSPECIFIED SNOMED Code(s): 16562905 (2) Dehydration Current Visit: Yes Status: Acute Code(s): E86.0 - DEHYDRATION SNOMED Code( s): 90091151 (3) History of pacemaker Current Visit: Yes Status: Acute Code(s): Z95.0 - PRESENCE OF CARDIAC PACEMAKER SNOMED Code(s): 289726182 (4) Leukocytosis Current Visit: Yes Status: Acute Code(s): D72.829 - ELEVATED WHITE BLOOD CELL COUNT, UNSPECIFIED SNOMED Code(s): 698600839 (5) AICD (automatic cardioverter/defibrillator) present Current Visit: No Status: Acute Code(s): Z95.810 - PRESENCE OF AUTOMATIC ( IMPLANTABLE) CARDIAC DEFIBRILLATOR SNOMED Code(s): 010620196 (6) Anemia Current Visit: No Status: Acute Code(s): D64.9 - ANEMIA, UNSPECIFIED SNOMED Code(s): 251736177 (7) CAD (coronary artery disease) Current Visit: No Status: Acute Code(s): I25.10 - ATHSCL HEART DISEASE OF [place] CORONARY ARTERY W/O ANG PCTRS SNOMED Code(s): 24500957 (8) Cardiomyopathy Current Visit: No Status: Acute Code(s): I42.9 - CARDIOMYOPATHY, UNSPECIFIED SNOMED Code(s): 79676988 (9) Congestive heart failure Current Visit: No Status: Acute Code(s): I50.9 - HEART FAILURE, UNSPECIFIED SNOMED Code(s): 49317648 Plan: Overall patient seemed to be improving. We'll start him on oral anticoagulation with Eliquis 2.5 mg by mouth twice a day. We'll continue with Brillinta and aspirin. Increase activity as tolerated
[2018-09-03 17:06] LABS: Glucose,Whole Blood 173 mg/dL (75-99)
--- NOTE | 2018-09-03 19:48 | PN ---
PROGRESS NOTE Patient is seen for followup for acute kidney injury. He was admitted to the hospital with hypotension, hypovolemia and lactic acidosis. Cultures have been negative thus far. C difficile toxin was negative. Renal function has been improving with serum creatinine down to 1.8 mg/dL from 4.59 on initial admission. Patient has an indwelling Rehman catheter. On examination this morning, blood pressure was 109/82, heart rate of 70 per minute. Patient is afebrile. EXAMINATION OF THE HEART: S1, S2. EXAMINATION OF LUNGS: Bilateral breath sounds are heard. ABDOMEN: Soft, non-tender. Examination of lower extremities shows trace edema bilaterally. PEGA DEVELOPER exam is grossly intact. Labs show sodium 143, potassium 4.1, BUN 27, serum creatinine 1.8, hemoglobin 8.6 g/dL. ASSESSMENT: 1. Acute kidney injury, acute tubular necrosis, nonoliguric, currently improving. Patient was maintained on IV fluids. He is currently off of IV fluids and doing well. 2. Intravascular volume depletion associated with diarrhea, currently improved. 3. Lactic acidosis, now improved. 4. Hypotension, now resolved. Patient is off of Levophed. 5. Cardiomyopathy, ejection fraction 35% to 40%. 6. Coronary artery disease, status post coronary stent to proximal circumflex artery in July 2018. PLAN: Continue off of IV fluids. Continue to encourage increased oral intake. Repeat labs in a.m. and avoid nephrotoxic agents. MMODL / IJN: [id number] /
[2018-09-03 19:59] LABS: Glucose,Whole Blood 164 mg/dL (75-99)
--- NOTE | 2018-09-03 21:18 | P.PN ---
Subjective Progress Note Date: 09/03/18 Principal diagnosis: TN No acute events overnight. Hgb stable Objective - Vital Signs Vital signs: Vital Signs Temp 98.2 F 09/03/18 08:00 Pulse 78 09/03/18 14:00 Resp 19 09/03/18 14:00 BP 105/85 09/03/18 14:00 Pulse Ox 96 09/03/18 12:00 Intake & Output 09/02/18 09/03/18 09/03/18 18:59 06:59 18:59 Intake Total 511.046 864.775 926.311 Output Total 1155 765 385 Balance -643.954 99.775 541.311 Weight 110.5 kg 117.1 kg 117.1 kg Intake: IV 465 120 80 Sodium Chloride 0.9% 1, 315 120 80 000 ml @ 10 mls/hr IV . Q24H [facility] Rx#:[id number] cefTRIAXone 1,000 mg In 50 Sodium Chloride 0.9% 50 ml @ 100 mls/hr IVPB Q24HR [facility] Rx#:[id number] metroNIDAZOLE-NS PMX 500 100 mg In Saline 1 100ml.bag @ 100 mls/hr IVPB Q6HR [facility] Rx#:[id number] Intake, IV Titration 46.046 24.775 486.311 Amount Heparin Sod,Pork in 0.45% 486.311 NaCl 25,000 unit In 0.45 % NaCl 1 500ml.bag @ 9 UNITS/KG/HR 19.89 mls/hr IV .Q24H [facility] Rx#: [id number] Norepinephrine 16 mg In 46.046 24.775 Sodium Chloride 0.9% 250 ml @ Titrate IV .Q0M [facility] Rx#:[id number] Oral 720 360 Output: Urine 1155 765 385 Other: Voiding Method Indwelling Catheter Indwelling Catheter Indwelling Catheter # Bowel Movements 1 - Exam Constitutional General appearance: no acute distress - EENT Eyes: EOMI, PERRLA ENT: hearing grossly normal, normal oropharynx - Neck Neck: no lymphadenopathy Thyroid: bilateral: normal size - Respiratory Respiratory: bilateral: diminished - Cardiovascular Rhythm: regular Heart sounds: normal: S1, S2 - Gastrointestinal General gastrointestinal: hyperactive bowel sounds, soft - Integumentary Integumentary: normal - Neurologic Neurologic: CNII-XII intact - Musculoskeletal Musculoskeletal: generalized weakness, strength equal bilaterally - Labs CBC & Chem 7: 09/03/18 04:17 09/03/18 04:17 Labs: Abnormal Lab Results - Last 24 Hours (Table) 09/02/18 09/02/18 09/02/18 Range/Units 05:30 17:06 20:23 WBC (3.8-10.6) k/uL RBC (4.30-5.90) m/uL Hgb (13.0-17.5) gm/dL Hct (39.0-53.0) % MCHC (31.0-37.0) g/dL RDW (11.5-15.5) % Neutrophils # (Manual) (1.3-7.7) k/uL Lymphocytes # (Manual) (1.0-4.8) k/uL Monocytes # (Manual) (0-1.0) k/uL Myelocytes # (Manual) (0) k/uL PT (9.0-12.0) sec INR (<1.2) APTT 57.1 H (22.0-30.0) sec Chloride (98-107) mmol/L Carbon Dioxide (22-30) mmol/L BUN (9-20) mg/dL Creatinine (0.66-1.25) mg/dL Glucose (74-99) mg/dL POC Glucose (mg/dL) 173 H (75-99) mg/dL Calcium (8.4-10.2) mg/dL Ferritin 656.7 H (22.0-322.0) ng/mL Total Protein (6.3-8.2) g/dL Albumin (3.5-5.0) g/dL 18 18 09/03/18 Range/Units 20:31 04:17 04:17 WBC 13.1 H (3.8-10.6) k/uL RBC 3.00 L (4.30-5.90) m/uL Hgb 8.6 L (13.0-17.5) gm/dL Hct 28.9 L (39.0-53.0) % MCHC 29.6 L (31.0-37.0) g/dL RDW 22.0 H (11.5-15.5) % Neutrophils # (Manual) 9.30 H (1.3-7.7) k/uL Lymphocytes # (Manual) 0.66 L (1.0-4.8) k/uL Monocytes # (Manual) 3.28 H (0-1.0) k/uL Myelocytes # (Manual) 0.13 H (0) k/uL PT (9.0-12.0) sec INR (<1.2) APTT (22.0-30.0) sec Chloride 114 H (98-107) mmol/L Carbon Dioxide 20 L (22-30) mmol/L BUN 27 H (9-20) mg/dL Creatinine 1.81 H (0.66-1.25) mg/dL Glucose 122 H (74-99) mg/dL POC Glucose (mg/dL) 175 H (75-99) mg/dL Calcium 7.5 L (8.4-10.2) mg/dL Ferritin (22.0-322.0) ng/mL Total Protein 5.4 L (6.3-8.2) g/dL Albumin 2.9 L (3.5-5.0) g/dL 09/03/18 09/03/18 09/03/18 Range/Units 04:17 06:29 07:01 WBC (3.8-10.6) k/uL RBC (4.30-5.90) m/uL Hgb (13.0-17.5) gm/dL Hct (39.0-53.0) % MCHC (31.0-37.0) g/dL RDW (11.5-15.5) % Neutrophils # (Manual) (1.3-7.7) k/uL Lymphocytes # (Manual) (1.0-4.8) k/uL Monocytes # (Manual) (0-1.0) k/uL Myelocytes # (Manual) (0) k/uL PT 13.6 H (9.0-12.0) sec INR 1.3 H (<1.2) APTT 52.9 H (22.0-30.0) sec Chloride (98-107) mmol/L Carbon Dioxide (22-30) mmol/L BUN (9-20) mg/dL Creatinine (0.66-1.25) mg/dL Glucose (74-99) mg/dL POC Glucose (mg/dL) 129 H (75-99) mg/dL Calcium (8.4-10.2) mg/dL Ferritin (22.0-322.0) ng/mL Total Protein (6.3-8.2) g/dL Albumin (3.5-5.0) g/dL 09/03/18 Range/Units 11:20 WBC (3.8-10.6) k/uL RBC (4.30-5.90) m/uL Hgb (13.0-17.5) gm/dL Hct (39.0-53.0) % MCHC (31.0-37.0) g/dL RDW (11.5-15.5) % Neutrophils # (Manual) (1.3-7.7) k/uL Lymphocytes # (Manual) (1.0-4.8) k/uL Monocytes # (Manual) (0-1.0) k/uL Myelocytes # (Manual) (0) k/uL PT (9.0-12.0) sec INR (<1.2) APTT (22.0-30.0) sec Chloride (98-107) mmol/L Carbon Dioxide (22-30) mmol/L BUN (9-20) mg/dL Creatinine (0.66-1.25) mg/dL Glucose (74-99) mg/dL POC Glucose (mg/dL) 173 H (75-99) mg/dL Calcium (8.4-10.2) mg/dL Ferritin (22.0-322.0) ng/mL Total Protein (6.3-8.2) g/dL Albumin (3.5-5.0) g/dL Microbiology - Last 24 Hours (Table) 08/31/18 15:15 Blood Culture - Preliminary Blood No Growth after 48 hours Assessment and Plan Plan: Chest x-ray: report reviewed CT scan - abdomen: report reviewed CT scan - pelvis: report reviewed Assessment and Plan (1) ITP (idiopathic thrombocytopenic purpura) Narrative/Plan: - History of ITP - The pt has responded very well to Promacta. In fact plt count is well within the normal range, despite the pt being off Promacta for about 2 wks. Pt can continue Promacta, but per dosing guidelines, dose maybe reduced to 25 mg/ d. - I have spoke with Dr. Juvencio Velazco regarding his dose of Promacta and at this time would like him to remain on his current dose 50mg/d, he can bring in medication for home med to take here, since not on formulary. Current Visit: No Status: Acute Code(s): D69.3 - IMMUNE THROMBOCYTOPENIC PURPURA SNOMED Code(s): 29401254 (2) Anemia Narrative/Plan: - The pt's had anemia w/u during his last admission, which was c/w anemia of chronic disease/inflammation. - He has no obvious bleeding. Anemia may be exacerbated this admission by added stress of acute illness, and drop in renal function. Monitor Hgb and transfuse for < 7 Current Visit: No Status: Acute Code(s): D64.9 - ANEMIA, UNSPECIFIED SNOMED Code(s): 323254013 (3) Leukocytosis Narrative/Plan: - This would be expected, as a reactive phenomenon, given recent medical events. - However, while neutrophilia is predominant, significant monocytosis was also noted. This raises the possibility of an underlying low grade MPN, such as CMML. This does not require treatment , unless symptomatic. Monocyte count is dropping. Will discuss the same with Dr Velazco ,to monitor as outpt for progression Current Visit: Yes Status: Acute Code(s): D72.829 - ELEVATED WHITE BLOOD CELL COUNT, UNSPECIFIED SNOMED Code(s): 604078842 Plan: Defer to the admitting service for management of his multiple other medical problems
[2018-09-03] MEDS: ASPIRIN 81 MG PO SCH (21:32)
[2018-09-03] MEDS: ATORVASTATIN 40 MG TAB PO SCH (21:32)
[2018-09-03] MEDS: APIXABAN 2.5 MG TABLET PO SCH (21:32)
[2018-09-03] MEDS: MAGNESIUM OXIDE 400 MG TAB PO SCH (21:33)
[2018-09-03] MEDS: MELATONIN 3 MG TABLET PO SCH (21:34)
[2018-09-04] MEDS: metroNIDAZOLE-NS PMX 500 MG in SALINE 1 100ML.BAG IVPB SCH ×4 (00:55→19:39)
--- NOTE | 2018-09-04 01:27 | PN ---
PROGRESS NOTE DATE OF SERVICE: 09/03/2018 PRESENTING COMPLAINT: Tired. INTERVAL HISTORY: This patient was seen by me in ICU yesterday evening. Recently was in the hospital with acute VA stent and had culture . Also treated for pneumonia and acute kidney injury on the last admission also had AICD. Patient admitted this time with acute severe diarrhea. CT was negative. Found to be in acute renal failure. Initially was on dose taken off. Also found to have underlying atrial fibrillation. Has a permanent pacemaker. Ate a little bit better. Did sit up out on bed on a paced rhythm. No further diarrhea. REVIEW OF SYSTEMS: Done for constitutional, cardiovascular, GI, pulmonary and relevant findings as above. CURRENT MEDICATIONS: Reviewed and include IV ceftriaxone, p.o. Eliquis, IV Flagyl, Brilinta. PHYSICAL EXAMINATION: VITAL SIGNS: Temperature 96.9, pulse 81, respiration 26, blood pressure 118/54, pulse ox 91 percent. GENERAL APPEARANCE: Lying in bed, awake. EYES: Pupils equal. Conjunctivae pale. NECK: JVD unable to assess. Mass not palpable. RESPIRATORY: Effort increased. LUNGS: Decreased breath sounds. CARDIOVASCULAR: 1st and 2nd sounds normal. Minimal edema. ABDOMEN: Soft, nontender. Liver and spleen not palpable. PSYCHIATRY: Alert and oriented x3. Mood and affect normal. INVESTIGATIONS: White count 13.1, hemoglobin 8.6, platelets 260, potassium 4.1, BUN 27, creatinine 1.81. ASSESSMENT: 1. Acute severe diarrhea. C diff was negative. Empirically on Flagyl. 2. Acute renal failure, nonoliguric, likely combination of prerenal from diarrhea and acute tubular necrosis from medications with significant improvement. 3. Coronary artery with stent to the circumflex and in the LAD recently. 4. AICD. 5. Idiopathic thrombocytopenia for which patient is on Promacta. 6. Colonic diverticulosis asymptomatic. 7. Primary osteoarthritis of the lumbar spine. 8. Obesity; BMI more than 30. 9. Chronic congestive heart failure from systolic dysfunction, EF 35-40 percent, coronary artery disease. 10.Hypotensive shock from volume loss. Patient had been on Levophed, taken off the same. 11.Underlying rhythm of atrial fibrillation per Cardiology. PLAN: Continue current medication and treatment plan. Overall looking better. Remains in the ICU. Continue current medication and treatment plan. Follow closely. Care was discussed with the patient. MMODL / IJN: [id number] /
[2018-09-04] MEDS: ELTROMBOPAG OLAMINE 50 MG PO SCH (05:53)
[2018-09-04 06:04] LABS: Calcium 7.7 mg/dL (8.4-10.2); INR 1.4 (<1.2); Magnesium 1.4 mg/dL (1.6-2.3); Potassium 4.4 mmol/L (3.5-5.1); Prothrombin Time 13.9 sec (9.0-12.0)
[2018-09-04 07:00] LABS: Anisocytosis Moderate; HGB 8.2 gm/dL (13.0-17.5); Hypochromasia Marked; MCH 27.8 pg (25.0-35.0); MCHC 29.1 g/dL (31.0-37.0); MCV 95.5 fL (80.0-100.0); Macrocytosis Slight; Mean Platelet Volume 11.7; Platelet Count 230 k/uL (150-450); Poikilocytosis Slight; RBC 2.93 m/uL (4.30-5.90); WBC 11.5 k/uL (3.8-10.6)
[2018-09-04 07:13] LABS: Glucose,Whole Blood 142 mg/dL (75-99)
[2018-09-04 07:14] LABS: Large Platelets Present; Lymphocytes # (M) 1.38 k/uL (1.0-4.8); Monocytes # (M) 2.88 k/uL (0-1.0); Neutrophils # (M) 7.25 k/uL (1.3-7.7); Neutrophils % (M) 63 %; Nucleated Red Blood Cells 0 /100 WBC (0-0); Poikilocytosis (M) Present; Total Cells Counted 100
[2018-09-04] MEDS: INSULIN ASPART 100 UNIT/ML 1 ML 10 ML VIAL SQ SCH ×4 (07:49→22:01)
[2018-09-04] MEDS: APIXABAN 2.5 MG TABLET PO SCH (08:45)
[2018-09-04] MEDS: LINAGLIPTIN 5 MG TABLET PO SCH (08:47)
[2018-09-04] MEDS: LOPERAMIDE 2 MG CAP PO SCH ×4 (08:47→22:14)
[2018-09-04] MEDS: PANTOPRAZOLE 40 MG TABLET PO SCH (08:48)
[2018-09-04] MEDS: TICAGRELOR 90 MG TAB PO SCH (08:48)
[2018-09-04] MEDS: SODIUM BICARBONATE TAB 650 MG TAB PO SCH ×2 (08:48→20:20)
[2018-09-04] MEDS: guaiFENesin 600 MG TABLET.ER PO SCH ×2 (09:13→20:21)
[2018-09-04] MEDS: FLUTICASONE 50MCG/SPRAY NASAL 16GM EA NOSTRIL SCH (09:13)
[2018-09-04] MEDS: CHOLESTYRAMINE (WITH SUGAR) 4 GM PACKET PO SCH ×2 (09:13→19:38)
--- NOTE | 2018-09-04 09:47 | P.PN ---
Subjective Patient is seen in follow-up for acute kidney injury. Renal function is improving with creatinine down to 1.31 today. He is off IV fluids. Currently resting in bed. Denies any further diarrhea. No vomiting. Oral intake is fair. He is nonoliguric. Vital signs are stable. General: The patient appeared well nourished and normally developed. HEENT: Head exam is unremarkable. Neck is without jugular venous distension. LUNGS: Lungs are clear to auscultation and percussion. Breath sounds decreased. HEART: Rate and Rhythm are regular. First and second heart sounds normal. No murmurs, rubs or gallops. ABDOMEN: Abdominal exam reveals normal bowel sounds. Non-tender and non- distended. No evidence of peritonitis. EXTREMITITES: No clubbing, cyanosis, or edema. Objective - Vital Signs Vital signs: Vital Signs Temp 98.3 F 09/04/18 04:00 Pulse 83 09/04/18 07:00 Resp 21 09/04/18 07:00 BP 134/64 09/04/18 07:00 Pulse Ox 97 09/04/18 07:00 Intake & Output 09/03/18 09/04/18 09/04/18 18:59 06:59 18:59 Intake Total 986.311 120 10 Output Total 590 760 60 Balance 396.311 -640 -50 Weight 117.1 kg 116.8 kg Intake: IV 140 120 10 Sodium Chloride 0.9% 1, 140 120 10 000 ml @ 10 mls/hr IV . Q24H [facility] Rx#:[id number] Intake, IV Titration 486.311 Amount Heparin Sod,Pork in 0.45% 486.311 NaCl 25,000 unit In 0.45 % NaCl 1 500ml.bag @ 9 UNITS/KG/HR 19.89 mls/hr IV .Q24H [facility] Rx#: [id number] Oral 360 Output: Urine 590 760 60 Other: Voiding Method Indwelling Catheter Indwelling Catheter # Bowel Movements 1 - Labs CBC & Chem 7: 09/04/18 04:51 09/04/18 04:51 Labs: Abnormal Lab Results - Last 24 Hours (Table) 09/03/18 09/03/18 09/03/18 Range/Units 04:17 11:20 17:04 WBC (3.8-10.6) k/uL RBC (4.30-5.90) m/uL Hgb (13.0-17.5) gm/dL Hct (39.0-53.0) % MCHC (31.0-37.0) g/dL RDW (11.5-15.5) % Monocytes # (Manual) (0-1.0) k/uL PT (9.0-12.0) sec INR (<1.2) Chloride (98-107) mmol/L Carbon Dioxide (22-30) mmol/L Creatinine (0.66-1.25) mg/dL Glucose (74-99) mg/dL POC Glucose (mg/dL) 173 H 173 H (75-99) mg/dL Hemoglobin A1c 6.4 H (4.0-6.0) % Calcium (8.4-10.2) mg/dL Magnesium (1.6-2.3) mg/dL 09/03/18 09/04/18 09/04/18 Range/Units 19:57 04:51 04:51 WBC (3.8-10.6) k/uL RBC (4.30-5.90) m/uL Hgb (13.0-17.5) gm/dL Hct (39.0-53.0) % MCHC (31.0-37.0) g/dL RDW (11.5-15.5) % Monocytes # (Manual) (0-1.0) k/uL PT 13.9 H (9.0-12.0) sec INR 1.4 H (<1.2) Chloride 116 H (98-107) mmol/L Carbon Dioxide 20 L (22-30) mmol/L Creatinine 1.31 H (0.66-1.25) mg/dL Glucose 122 H (74-99) mg/dL POC Glucose (mg/dL) 164 H (75-99) mg/dL Hemoglobin A1c (4.0-6.0) % Calcium 7.7 L (8.4-10.2) mg/dL Magnesium 1.4 L (1.6-2.3) mg/dL 09/04/18 09/04/18 Range/Units 04:51 07:10 WBC 11.5 H (3.8-10.6) k/uL RBC 2.93 L (4.30-5.90) m/uL Hgb 8.2 L (13.0-17.5) gm/dL Hct 28.0 L (39.0-53.0) % MCHC 29.1 L (31.0-37.0) g/dL RDW 22.0 H (11.5-15.5) % Monocytes # (Manual) 2.88 H (0-1.0) k/uL PT (9.0-12.0) sec INR (<1.2) Chloride (98-107) mmol/L Carbon Dioxide (22-30) mmol/L Creatinine (0.66-1.25) mg/dL Glucose (74-99) mg/dL POC Glucose (mg/dL) 142 H (75-99) mg/dL Hemoglobin A1c (4.0-6.0) % Calcium (8.4-10.2) mg/dL Magnesium (1.6-2.3) mg/dL Microbiology - Last 24 Hours (Table) 08/31/18 15:15 Blood Culture - Preliminary Blood No Growth after 72 hours 09/01/18 09:38 Stool Culture - Preliminary Stool Assessment and Plan Plan: Assessment: 1. Nonoliguric acute kidney injury mostly prerenal secondary to hypotension and hypovolemia secondary to diarrhea. Improved with IV hydration. Creatinine down to 1.31 today. 2. Chronic kidney disease stage III. Baseline creatinine in the range of 1.1- 1.3 secondary to diabetic kidney disease. 3. Systolic CHF with ejection fraction of 35-40%. 4. Coronary artery disease status post stent to the proximal circumflex artery in July 2018. 5. Diabetes mellitus. 6. Anemia of chronic kidney disease. Iron replete. 7. Metabolic acidosis secondary to acute kidney injury. Stable. 8. Diarrhea. C. diff negative. No acute bowel pathology on CAT scan. Resolved. 9. Hypomagnesemia from poor oral intake. Plan: Encourage oral intake. Avoid nephrotoxins. Replace magnesium. 3 g IV today. Add Aranesp.
[2018-09-04] MEDS ORDERED: DARBEPOETIN ALFA 40 MCG/0.4 ML SYRINGE SQ SCH (10:00)
[2018-09-04] MEDS: CLOPIDOGREL 75 MG TAB PO SCH (10:08)
[2018-09-04] MEDS: RIVAROXABAN 15 MG TAB PO SCH (10:08)
[2018-09-04] MEDS: MAGNESIUM SULFATE-D5W PMX 1 GM in DEXTROSE/WATER 1 100ML.BAG IVPB SCH ×2 (10:09→11:47)
--- NOTE | 2018-09-04 10:36 | P.PN ---
Subjective Progress Note Date: 09/04/18 This is a 73-year-old male patient with multiple medical positive comorbidities who was recently discharged from the hospital after being treated for an acute non-ST segment elevation myocardial infarction. The patient was transferred to [facility]. Noted the patient was admitted to the hospital on 08/10/2018 when acute non-ST segment elevation myocardial infarction. After a complex cardiac catheterization and stenting during which an intra-aortic balloon pump was inserted, the patient did well. The circumflex was stented. The intra- aortic balloon pump was removed. The pressors were weaned off and the patient was discharged to [facility] for further rehabilitation. Note that during the same hospital stay, the patient had developed an acute kidney injury related to hypotension and contrast nephropathy from which she recovered. He has congestion heart failure with systolic dysfunction and ejection fraction of 35-40%. He was treated with cardiogenic shock. Pneumonia was also suspected and he was given a course of antibiotics and to my recollection he was given IV Zosyn. He has an AICD in place. He has previous history of ITP, colonic diverticulosis, osteoarthritis and chronic anemia. Following his discharge, the patient was gradually rehabilitating and according to the family was doing well until around 3 days ago when he started having profuse watery diarrhea. The diarrhea was constant multiple episodes, liquidy diarrhea more than 10 episodes with some limited vague abdominal pain. Apparently the patient was unable to keep up with his oral intake and the patient became progressively more lethargic. He came into the emergency departmentthis afternoon with marked abnormalities. His white cell count was elevated at 43.7. His hemoglobin was at 8.3. He had acute kidney injury with a creatinine of 4.5 and a BUN of 42. His serum lactic acid level was at 2.5. Troponin was at 0.162. The patient was hypotensive with a systolic in the mid 70s. The patient was given a total of 3 L of IV fluids. Urine output remains minimal. In the ICU inserted triple lumen catheter and we are in the process of resuscitating this patient further. Stool for C. diff was sent and the results are still pending for now. Meanwhile the patient was given a dose of Rocephin and Flagyl. The patient's lipase was at 422. AST and ALT and bilirubin were all within normal limits with mild elevation of the bilirubin up to 1.3. Total protein was 6.2 with an albumin of 3.5. Amylase was 66. Chest x -ray did not show any acute abnormalities. On 09/01/2018 and seeing this patient for a follow-up. Overnight, the patient was given fluids aggressively and a total of 5 L of normal saline was infused. Currently is on 75 mL an hour. He remained hypotensive and the patient was started on pressors and earlier this morning the patient was on 11 g of norepinephrine infusion. Urine output is improved and the patient's produced more than 300 mL of urine output and currently his urine output is about 30 mL an hour. He did have few bouts of diarrhea still. Stools for C. diff 2 has been negative. CAT scan of abdomen was also negative. Abdomen is nondistended and nontender. No. No chills. No headaches. No altered mentation. No worsening shortness of breath. Renal function is improving and the creatinine is down to 4.4. The white cell count is down to 13.8. Hemoglobin is at 8.1. Otherwise, no altered mentation. No other significant events overnight. The patient will be kept in the intensive care unit. Cardiology consultation and GI consultation is pending for now. On 09/02/2018 patient seen in follow-up in the intensive care unit, he is awake and alert, his diarrhea is subsiding, he is a couple of soft stools yesterday, he was seen in consultation by GI service, Questran was added. C. diff was negative. Stool for Cryptosporidium, Giardia and Giardia antigen were negative. Patient still on Levaquin and at 2 mics per minute, he is receiving IV fluids at 75 MLS per hour, today's chest x-ray shows interstitial prominence , bibasilar pleural effusions, changes consistent with congestive heart failure and volume overload. We'll cut the fluids back, patient is tolerating oral intake. Patient is nonoliguric, he is producing urine from 75-170 ML per hour. Today's labs have been reviewed. His leukocytosis is trending down, WBCs 18.8 , hemoglobin is 7.8, INR is 1.2, renal profile is improving, BUN is 34 and creatinine is 2.5 09/03/2018 patient seen in follow-up in the intensive care unit. Patient is stable, his diarrhea is slowing down, and one soft bowel movement last night, and one soft bowel movement this morning. Hemodynamically stable, 0.9 normal saline at a rate of 20 ML per hour, heparin infusion is at 9 units per kilo per hour. Lab work has been reviewed, WBC is 13.1, leukocytosis is improving, hemoglobin is 8.6, platelet count was 260, INR is 1.3, sodium is 143, potassium is 4.1, chloride is 114, CO2 is 20, B1 is 27, creatinine is 1.81. Lung sounds. Lung sounds are positive for some crackles at the right lower lobe, lung sounds are unremarkable. Patient has occasional productive cough with clear torres sputum. Cultures are negative. Hematology has been consulted for her history of idiopathic thrombocytopenic purpura and their consult was noted. On 09/04/2018 I'm seeing this patient for a follow-up. Doing well. No specific complaints. No signs of any respiratory distress. Currently on 2 L of oxygen by nasal cannula. Hemodynamically stable. Any function continues to improve in the creatinine is down to 1.3. He is producing adequate urine output. His cardiac rhythmalthough is having short runs of atrial fibrillation. Based on this, we will put this patient on Xarelto. We'll switch him from Brilinta to Plavix and continue the aspirin for now. This was done in coordination with cardiology. The patient is tolerating his diet. No nausea. No vomiting. No diarrhea. No abdominal pain. No fever. No chills. Leukocytosis improved. His white cell count is down to 11.5. Creatinine is down to 1.3. Mental status is stable. Hemoglobin stable at 8.2. The patient will be discharged out of the intensive care unit to [facility]. He will need aggressive physical therapy and rehabilitation. Objective - Vital Signs Vital signs: Vital Signs Temp 98.3 F 09/04/18 04:00 Pulse 83 09/04/18 07:00 Resp 21 09/04/18 07:00 BP 134/64 09/04/18 07:00 Pulse Ox 97 09/04/18 07:00 Intake & Output 09/03/18 09/04/18 09/04/18 18:59 06:59 18:59 Intake Total 986.311 120 10 Output Total 590 760 60 Balance 396.311 -640 -50 Weight 117.1 kg 116.8 kg Intake: IV 140 120 10 Sodium Chloride 0.9% 1, 140 120 10 000 ml @ 10 mls/hr IV . Q24H JESS Rx#:[id number] Intake, IV Titration 486.311 Amount Heparin Sod,Pork in 0.45% 486.311 NaCl 25,000 unit In 0.45 % NaCl 1 500ml.bag @ 9 UNITS/KG/HR 19.89 mls/hr IV .Q24H JESS Rx#: [id number] Oral 360 Output: Urine 590 760 60 Other: Voiding Method Indwelling Catheter Indwelling Catheter # Bowel Movements 1 - Exam GENERAL EXAM: Alert, pleasant, 73-year-old obese white male comfortable in no apparent distress. The patient is resting comfortably in bed on oxygen at 2 L per minute nasal cannula. HEAD: Normocephalic/atraumatic. EYES: Normal reaction of pupils, equal size. Conjunctiva pink, sclera white. NOSE: Clear with pink turbinates. THROAT: No erythema or exudates. NECK: No masses, no JVD, no thyroid enlargement, no adenopathy. The patient also has a triple lumen catheter in the right IJ. CHEST: No chest wall deformity. Symmetrical expansion. LUNGS: Breath sounds are diminished bilaterally and the lungs are clear with some limited crackles right lower lobe CVS: Irregular rate and rhythm, normal S1 and S2, no gallops, no murmurs, no rubs, the patient has occasional paced rhythm and the rhythm is somewhat irregular at this point in time. ABDOMEN: Soft, nontender. No hepatosplenomegaly, normal bowel sounds, no guarding or rigidity. EXTREMITIES: No clubbing, no edema, no cyanosis, diminished pulses and upper and lower extremities. MUSCULOSKELETAL: Muscle strength and tone normal. SPINE: No scoliosis or deformity SKIN: No rashes CENTRAL NERVOUS SYSTEM: Alert and oriented -3. No focal deficits, tone is normal in all 4 extremities. PSYCHIATRIC: Alert and oriented -3. Appropriate affect. Intact judgment and insight. - Labs CBC & Chem 7: 09/04/18 04:51 09/04/18 04:51 Labs: Abnormal Lab Results - Last 24 Hours (Table) 09/03/18 09/03/18 09/03/18 Range/Units 04:17 11:20 17:04 WBC (3.8-10.6) k/uL RBC (4.30-5.90) m/uL Hgb (13.0-17.5) gm/dL Hct (39.0-53.0) % MCHC (31.0-37.0) g/dL RDW (11.5-15.5) % Monocytes # (Manual) (0-1.0) k/uL PT (9.0-12.0) sec INR (<1.2) Chloride (98-107) mmol/L Carbon Dioxide (22-30) mmol/L Creatinine (0.66-1.25) mg/dL Glucose (74-99) mg/dL POC Glucose (mg/dL) 173 H 173 H (75-99) mg/dL Hemoglobin A1c 6.4 H (4.0-6.0) % Calcium (8.4-10.2) mg/dL Magnesium (1.6-2.3) mg/dL 09/03/18 09/04/18 09/04/18 Range/Units 19:57 04:51 04:51 WBC (3.8-10.6) k/uL RBC (4.30-5.90) m/uL Hgb (13.0-17.5) gm/dL Hct (39.0-53.0) % MCHC (31.0-37.0) g/dL RDW (11.5-15.5) % Monocytes # (Manual) (0-1.0) k/uL PT 13.9 H (9.0-12.0) sec INR 1.4 H (<1.2) Chloride 116 H (98-107) mmol/L Carbon Dioxide 20 L (22-30) mmol/L Creatinine 1.31 H (0.66-1.25) mg/dL Glucose 122 H (74-99) mg/dL POC Glucose (mg/dL) 164 H (75-99) mg/dL Hemoglobin A1c (4.0-6.0) % Calcium 7.7 L (8.4-10.2) mg/dL Magnesium 1.4 L (1.6-2.3) mg/dL 09/04/18 09/04/18 Range/Units 04:51 07:10 WBC 11.5 H (3.8-10.6) k/uL RBC 2.93 L (4.30-5.90) m/uL Hgb 8.2 L (13.0-17.5) gm/dL Hct 28.0 L (39.0-53.0) % MCHC 29.1 L (31.0-37.0) g/dL RDW 22.0 H (11.5-15.5) % Monocytes # (Manual) 2.88 H (0-1.0) k/uL PT (9.0-12.0) sec INR (<1.2) Chloride (98-107) mmol/L Carbon Dioxide (22-30) mmol/L Creatinine (0.66-1.25) mg/dL Glucose (74-99) mg/dL POC Glucose (mg/dL) 142 H (75-99) mg/dL Hemoglobin A1c (4.0-6.0) % Calcium (8.4-10.2) mg/dL Magnesium (1.6-2.3) mg/dL Microbiology - Last 24 Hours (Table) 08/31/18 15:15 Blood Culture - Preliminary Blood No Growth after 72 hours 09/01/18 09:38 Stool Culture - Preliminary Stool Assessment and Plan Plan: Assessment 1 acute diarrhea with intravascular volume depletion, dehydration and some vague limited abdominal pain. CAT scan of the abdomen was negative. Stool for C. diff was also negative. The patient is being hydrated. He will be started on Imodium and Questran. Since then, the patient's diarrhea subsided and the patient is doing much better and his repeated intravascularly. 2 acute leukocytosis, currently under investigation. The white cell count is normalized 3 acute hypotension secondary to intravascular volume depletion. The patient was resuscitated IV fluids and the patient's condition is back to its baseline including his blood pressure. 4 acute kidney injury secondary to intravascular volume depletion. Renal function continues to improve in the creatinine is down to 1.3 5 history of coronary artery disease with previous non-ST segment elevation myocardial infarction requiring emergent cardiac catheterization and stenting of the circumflex 6 previous history of cardiogenic shock post cardiac catheterization and insertion of a stent. The patient was supported by intra-aortic balloon pump is pressors back in March 2018 7 congestion heart failure with ischemic cardiomyopathy and ejection fraction of 30-35%. The patient has an AICD in place 8 diabetes mellitus type 2 9 COPD 10 previous history of ITP 11 chronic anemia 12 elevation of lipase, pancreatitis is doubtful. 13 acute lactic acidosis, improving and the lactic acid level has normalized down to 1.4. 14 paroxysmal atrial fibrillation Plan Patient is improved. He will need aggressive physical therapy. He remains profoundly weak. Antiplatelet agents were adjusted and the patient was also placed on anticoagulation regarding paroxysmal atrial fibrillation.. His platelet counts are within normal limits for now. The right IJ triple-lumen catheter can be removed. The patient will be taken for a medical surgical floor. IV fluids to KVO. We'll complete 7 day course of antibiotics including a combination of Rocephin and Flagyl. Physical therapy will be consulted. He can go to medical surgical floor with telemetry or selective.
--- NOTE | 2018-09-04 10:55 | CONS ---
CONSULTATION Mr. Escudero is a gentleman with history of CAD, multiple percutaneous coronary interventions. I performed stenting of circumflex vessel on August 11. This was performed in the setting of a [id number] with hypotension requiring a balloon pump. He came back into the hospital with severe dehydration, diarrhea, required IV fluids, and he has improved a lot. His creatinine is good. He feels well. Denies chest discomfort. He, however, has atrial fibrillation as well. I am recommending that we switch him from Brilinta and aspirin to Plavix 75 mg daily and Xarelto 15 mg daily. We will also discontinue aspirin and Eliquis. Hemodynamically stable. He is doing better. His creatinine has improved. His vital signs are stable. S1, S2 heard normally. Short systolic murmur noted. Lungs reveal diminished air entry. Abdomen and lower extremity exam otherwise is unchanged. Plan is to continue current medical regimen with the change in the antiplatelet regimen and anticoagulation as indicated above. MMODL / IJN: [id number] /
[2018-09-04 11:57] LABS: Glucose,Whole Blood 199 mg/dL (75-99)
--- NOTE | 2018-09-04 12:37 | PN ---
PROGRESS NOTE DATE OF DICTATION: 09/04/2018 Patient is a 73-year-old pleasant white male admitted to the hospital 4 days ago with acute severe diarrhea, hypertension, acute kidney injury, for which he has been in the intensive care unit and being closely monitored. Stool studies for C difficile toxin were negative. He did have an episode of C difficile colitis about 2 years ago. No recent antibiotic use. The patient had stool studies and C difficile toxin was negative during this hospitalization. Empirically he is on Flagyl as well as Rocephin. The patient is doing much better. He is sitting up in bed, not having any complaints today. Did not have any bowel movements. Yesterday had 2 solid bowel movements. He reports no abdominal pain. No nausea, vomiting. He is on a soft diet, tolerating well. He had a hospitalization 3 weeks ago with acute MD, during which time he had cardiac catheterization with stenting done. PHYSICAL EXAMINATION: He appears comfortable, in no apparent distress. VITAL SIGNS: Stable. Blood pressure is 125/73, respiratory rate 20, temperature 97.5, pulse rate 70. HEENT EXAMINATION: Unremarkable. Conjunctivae pink, sclerae anicteric, oral cavity no lesions. NECK: No JVD or lymph node enlargement. Chest was clear to auscultation. HEART: Regular rate and rhythm. ABDOMEN: Soft. It was nontender, nondistended. Liver and spleen are not palpable. Bowel sounds are positive. No organomegaly. EXTREMITIES: No pedal edema. SKIN: No rashes. NEUROLOGIC: Alert and oriented x3. No focal deficits. LABS: Today WBC is 11.5, hemoglobin 8.2. Platelets are 230. BUN is 19 and creatinine is 1.13. ALT, AST, total bilirubin and alkaline phosphatase are all within normal limits. IMPRESSION: 1. Acute severe diarrhea of 4 days' duration, possibly infectious in etiology. C difficile was negative. Stool for lactoferrin was positive. He is empirically on Flagyl and his symptoms are significantly improved. Leukocytosis is almost resolving. 2. Acute kidney injury secondary to severe intravascular volume depletion, which is gradually better with aggressive IV hydration. Patient has been off of pressors now. 3. Status post recent myocardial infarction 3 weeks ago; had cardiac catheterization with stenting done. RECOMMENDATIONS: 1. Continue with empiric Flagyl for now. 2. Hold Imodium and give only as needed. 3. Continue with Questran for now. We will follow with you closely during his hospital stay. Thank you for this consultation. BASILIO / TAE: [id number] /
[2018-09-04 17:22] LABS: Glucose,Whole Blood 183 mg/dL (75-99)
--- NOTE | 2018-09-04 18:51 | P.PN ---
Subjective Progress Note Date: 09/04/18 Principal diagnosis: Acute diarrhea and acute kidney injury Mr. Escudero is a 73-year-old male with a past medical history of recent non-ST elevation [place] status post intra-aortic balloon pump , acute kidney injury, systolic congestive heart failure 17 from [facility] was sent to the ED for profuse watery diarrhea. At the time of admission patient had acute kidney injury with creatinine of 4.5 and also lactic acidosis with poor outcome. The patient was given IV fluids and stool was sent to C. diff. C. diff has been negative 2. Cardiology, GI have been consulted and following the patient. The patient has been in the ICU for the last couple of days. He'll take a slowly resolving but due to his IV fluids and his systolic heart failure patient developed interstitial prominence and chest x-rays which was secondary to fluid overload. Today the patient has been lying in bed with his family members at the bedside. Patient states that his feeling much better. Denies having any diarrhea. He states that his appetite is very poor and he cannot taste his food. Patient denies having any chest pain or palpitations. No difficulty in breathing or cough. Review of systems-negative for constitutional, cardiovascular, respiratory, GI and systems. Active Medications Acetaminophen (Tylenol Tab) 650 mg PO Q6H PRN PRN Reason: Pain Atorvastatin Calcium (Lipitor) 40 mg PO HS [facility] Last Admin: 09/03/18 21:32 Dose: 40 mg Cholestyramine Resin (Questran) 4 gm PO BID@1000,1800 [facility] Last Admin: 09/04/18 09:13 Dose: 4 gm Clopidogrel Bisulfate (Plavix) 75 mg PO DAILY [facility] Last Admin: 09/04/18 10:08 Dose: 75 mg Darbepoetin Bret (Aranesp) 40 mcg SQ Q7D [facility] Last Admin: 09/04/18 10:39 Dose: 40 mcg Fluticasone Propionate (Flonase Nasal [place]) 2 spray EA NOSTRIL DAILY [facility] Last Admin: 09/04/18 09:13 Dose: 2 spray Guaifenesin (Mucinex) 1,200 mg PO Q12HR [facility] Last Admin: 09/04/18 09:13 Dose: 1,200 mg Sodium Chloride (Saline 0.9%) 1,000 mls @ 10 mls/hr IV .Q24H [facility] Last Admin: 09/03/18 16:07 Dose: Not Given Ceftriaxone Sodium 1,000 mg/ (Sodium Chloride) 50 mls @ 100 mls/hr IVPB Q24HR [facility] Last Admin: 09/04/18 09:12 Dose: 100 mls/hr Metronidazole 500 mg/ IV (Solution) 100 mls @ 100 mls/hr IVPB Q6HR [facility] Last Admin: 09/04/18 12:24 Dose: 100 mls/hr Insulin Aspart (Novolog) 0 unit SQ ACHS [facility]; Protocol Last Admin: 09/04/18 12:24 Dose: 3 unit Linagliptin (Tradjenta) 5 mg PO DAILY [facility] Last Admin: 09/04/18 08:47 Dose: 5 mg Loperamide HCl (Imodium) 2 mg PO QID [facility] Last Admin: 09/04/18 13:13 Dose: Not Given Magnesium Oxide (Mag-Ox) 400 mg PO HS [facility] Last Admin: 09/03/18 21:33 Dose: 400 mg Melatonin (Melatonin) 3 mg PO [facility] Last Admin: 09/03/18 21:34 Dose: 3 mg Methyl Salicylate (Thera-Gesic Cream) 1 applic TOPICAL TID PRN PRN Reason: Pain Naloxone HCl (Narcan) 0.2 mg IV Q2M PRN PRN Reason: Opioid Reversal Nitroglycerin (Nitrostat) 0.4 mg SUBLINGUAL Q5M PRN PRN Reason: CHEST PAIN Patient's Own ( Eltrombopag Olamine [Promacta] 50 Mg) 50 mg PO DAILY [facility] Last Admin: 09/04/18 05:53 Dose: 50 mg Ondansetron HCl (Zofran) 4 mg IVP Q8HR PRN PRN Reason: Nausea And Vomiting Pantoprazole Sodium (Protonix) 40 mg PO DAILY [facility] Last Admin: 09/04/18 08:48 Dose: 40 mg Rivaroxaban (Xarelto) 15 mg PO DAILY [facility] Last Admin: 09/04/18 10:08 Dose: 15 mg Sodium Bicarbonate (Sodium Bicarbonate Tab) 650 mg PO BID [facility] Last Admin: 09/04/18 08:48 Dose: 650 mg Objective - Vital Signs Vital signs: Vital Signs Temp 98 F 09/04/18 16:00 Pulse 71 09/04/18 16:00 Resp 25 H 09/04/18 16:00 BP 104/70 09/04/18 16:00 Pulse Ox 92 L 09/04/18 16:00 Intake & Output 09/03/18 09/04/18 09/04/18 18:59 06:59 18:59 Intake Total 986.311 120 300 Output Total 590 760 575 Balance 396.311 -640 -275 Weight 117.1 kg 116.8 kg Intake: IV 140 120 300 Magnesium Sulfate-D5w Pmx 200 1 gm In Dextrose/Water 1 100ml.bag @ 100 mls/hr IVPB Q1H [facility] Rx#: [id number] Sodium Chloride 0.9% 1, 140 120 100 000 ml @ 10 mls/hr IV . Q24H [facility] Rx#:[id number] Intake, IV Titration 486.311 Amount Heparin Sod,Pork in 0.45% 486.311 NaCl 25,000 unit In 0.45 % NaCl 1 500ml.bag @ 9 UNITS/KG/HR 19.89 mls/hr IV .Q24H [facility] Rx#: [id number] Oral 360 Output: Urine 590 760 575 Other: Voiding Method Indwelling Catheter Indwelling Catheter Indwelling Catheter # Bowel Movements 1 - Exam Gen. examination-obese male sitting up in the bed currently in the ICU in no acute distress HEENT-normocephalic atraumatic. No pallor no icterus Neck - no JVD no thyromegaly Cardiovascular - irregularly irregular. S1-S2 heard Lungs - bilateral breath sounds are diminished at the lower lung bases. Few crackles at the right lower lung base GI-abdomen is soft nontender no organomegaly. Bowel sounds are positive. Extremities-no clubbing no cyanosis no edema. [employer] INST[employer]ER-alert awake oriented 3. No focaldeficits. Psychiatric - appropriate mood and affect - Labs CBC & Chem 7: 09/04/18 04:51 09/04/18 04:51 Labs: Abnormal Lab Results - Last 24 Hours (Table) 09/03/18 09/04/18 09/04/18 Range/Units 19:57 04:51 04:51 WBC (3.8-10.6) k/uL RBC (4.30-5.90) m/uL Hgb (13.0-17.5) gm/dL Hct (39.0-53.0) % MCHC (31.0-37.0) g/dL RDW (11.5-15.5) % Monocytes # (Manual) (0-1.0) k/uL PT 13.9 H (9.0-12.0) sec INR 1.4 H (<1.2) Chloride 116 H (98-107) mmol/L Carbon Dioxide 20 L (22-30) mmol/L Creatinine 1.31 H (0.66-1.25) mg/dL Glucose 122 H (74-99) mg/dL POC Glucose (mg/dL) 164 H (75-99) mg/dL Calcium 7.7 L (8.4-10.2) mg/dL Magnesium 1.4 L (1.6-2.3) mg/dL 09/04/18 09/04/18 09/04/18 Range/Units 04:51 07:10 11:53 WBC 11.5 H (3.8-10.6) k/uL RBC 2.93 L (4.30-5.90) m/uL Hgb 8.2 L (13.0-17.5) gm/dL Hct 28.0 L (39.0-53.0) % MCHC 29.1 L (31.0-37.0) g/dL RDW 22.0 H (11.5-15.5) % Monocytes # (Manual) 2.88 H (0-1.0) k/uL PT (9.0-12.0) sec INR (<1.2) Chloride (98-107) mmol/L Carbon Dioxide (22-30) mmol/L Creatinine (0.66-1.25) mg/dL Glucose (74-99) mg/dL POC Glucose (mg/dL) 142 H 199 H (75-99) mg/dL Calcium (8.4-10.2) mg/dL Magnesium (1.6-2.3) mg/dL 09/04/18 Range/Units 17:20 WBC (3.8-10.6) k/uL RBC (4.30-5.90) m/uL Hgb (13.0-17.5) gm/dL Hct (39.0-53.0) % MCHC (31.0-37.0) g/dL RDW (11.5-15.5) % Monocytes # (Manual) (0-1.0) k/uL PT (9.0-12.0) sec INR (<1.2) Chloride (98-107) mmol/L Carbon Dioxide (22-30) mmol/L Creatinine (0.66-1.25) mg/dL Glucose (74-99) mg/dL POC Glucose (mg/dL) 183 H (75-99) mg/dL Calcium (8.4-10.2) mg/dL Magnesium (1.6-2.3) mg/dL Microbiology - Last 24 Hours (Table) 08/31/18 15:15 Blood Culture - Preliminary Blood No Growth after 72 hours 09/01/18 09:38 Stool Culture - Preliminary Stool Assessment and Plan Assessment: ASSESSMENT Acute kidney injury-secondary to diarrhea Acute diarrhea- C. diff negative 2-resolved History of coronary artery disease status post post stenting of the circumflex Congestive heart failure with ischemic cardiomyopathy ejection fraction of 30-35 % AICD in place Paroxysmal atrial fibrillation Type 2 diabetes mellitus COPD Previous history of ITP Chronic anemia Recent History of Cardiogenic Shock Reason history of intra-aortic ballooning Osteoarthritis of the lumbar spine Plan: Patient's diarrhea has resolved. His urticaria is slowly resolving. Continue current antibiotics. Continue with the current medication regimen. Further recommendations to follow depending on the progress of the patient the treatment plan was discussed with the patient and his family members at the bedside in detail today.
[2018-09-04 19:50] LABS: Glucose,Whole Blood 165 mg/dL (75-99)
[2018-09-04] MEDS: ATORVASTATIN 40 MG TAB PO SCH (20:20)
[2018-09-04] MEDS: MELATONIN 3 MG TABLET PO SCH (20:20)
[2018-09-04] MEDS: MAGNESIUM OXIDE 400 MG TAB PO SCH (20:21)
[2018-09-04 21:58] LABS: Glucose,Whole Blood 154 mg/dL (75-99)
[2018-09-05] MEDS: metroNIDAZOLE-NS PMX 500 MG in SALINE 1 100ML.BAG IVPB SCH ×4 (00:22→17:32)
[2018-09-05 04:44] LABS: INR 1.5 (<1.2); Prothrombin Time 15.5 sec (9.0-12.0)
[2018-09-05 04:48] LABS: Magnesium 1.4 mg/dL (1.6-2.3); Phosphorus 2.8 mg/dL (2.5-4.5); Potassium 4.2 mmol/L (3.5-5.1)
[2018-09-05 04:50] LABS: Anisocytosis Moderate; HCT 26.7 % (39.0-53.0); HGB 8.1 gm/dL (13.0-17.5); Hypochromasia Marked; MCH 28.8 pg (25.0-35.0); MCHC 30.5 g/dL (31.0-37.0); MCV 94.2 fL (80.0-100.0); Macrocytosis Slight; Mean Platelet Volume 11.2; Platelet Count 218 k/uL (150-450); Poikilocytosis Slight; RBC 2.83 m/uL (4.30-5.90); RDW 22.1 % (11.5-15.5); WBC 11.3 k/uL (3.8-10.6)
[2018-09-05] MEDS: ELTROMBOPAG OLAMINE 50 MG PO SCH (06:28)
[2018-09-05] MEDS: MAGNESIUM SULFATE-D5W PMX 1 GM in DEXTROSE/WATER 1 100ML.BAG IVPB SCH ×3 (06:29→08:30)
[2018-09-05 07:14] LABS: Glucose,Whole Blood 153 mg/dL (75-99)
--- NOTE | 2018-09-05 07:35 | ECHOF ---
Referral Reason:pacer, prev cardiology interventions, underlyingAF MEASUREMENTS -------- HEIGHT: 182.9 cm WEIGHT: 116.6 kg BP: 134/64 RVIDd: 2.5 cm (< 3.3) IVSd: 1.0 cm (0.6 - 1.1) LVIDd: 5.4 cm (3.9 - 5.3) LVPWd: 1.0 cm (0.6 - 1.1) IVSs: 1.3 cm LVIDs: 4.3 cm LVPWs: 1.1 cm RAP: 5.00 mmHg RVSP: 15.18 mmHg FINDINGS -------- Sinus rhythm. This was a technically difficult study with suboptimal views. Limited Study for assessment of left ventricular function. The left ventricular size is normal. Left ventricular wall thickness is normal. There is mild [place] bal hypokinesis of LV . Overall left ventricular systolic function is moderately impaired with, an EF between 35 - 40 %. Basal posterior LV wall motion is hypokinetic. Basal inferior LV wall delfin on is hypokinetic. Mid inferior LV wall motion is hypokinetic. 3 ml of Lumason was utilized for enhancement of images. CONCLUSIONS -------- 1. Sinus rhythm. 2. This was a technically difficult study with suboptimal views. 3. Limited Study for assessment of left ventricular function. 4. The left ventricular size is normal. 5. Left ventricular wall thickness is normal. 6. There is mild global hypokinesis of LV . 7. Basal posterior LV wall motion is hypokinetic. 8. Basal inferior LV wall motion is hypokinetic. 9. Mid inferior LV wall motion is hypokinetic. 10. 3 ml of Lumason was utilized for enhancement of images. HYDRAULIC PRESS SERVICER: Yovani Sanches RDCS
[2018-09-05] MEDS: SODIUM BICARBONATE TAB 650 MG TAB PO SCH ×2 (08:31→20:11)
[2018-09-05] MEDS: LINAGLIPTIN 5 MG TABLET PO SCH (08:31)
[2018-09-05] MEDS: guaiFENesin 600 MG TABLET.ER PO SCH ×2 (08:31→20:11)
[2018-09-05] MEDS: CLOPIDOGREL 75 MG TAB PO SCH (08:31)
[2018-09-05] MEDS: PANTOPRAZOLE 40 MG TABLET PO SCH (08:31)
[2018-09-05] MEDS: SODIUM CHLORIDE 0.9% 1,000 ML IV SCH ×2 (08:35→17:31)
[2018-09-05] MEDS: LOPERAMIDE 2 MG CAP PO SCH ×4 (08:36→20:15)
[2018-09-05] MEDS: FLUTICASONE 50MCG/SPRAY NASAL 16GM EA NOSTRIL SCH (08:51)
[2018-09-05] MEDS: RIVAROXABAN 15 MG TAB PO SCH (08:52)
[2018-09-05] MEDS: INSULIN ASPART 100 UNIT/ML 1 ML 10 ML VIAL SQ SCH ×4 (08:53→20:11)
--- NOTE | 2018-09-05 09:22 | P.PN ---
Subjective Patient is seen in follow-up for acute kidney injury. Renal function is improving with creatinine down to 1.18 today. He is off IV fluids. Currently resting in bed. Denies any further diarrhea. No vomiting. Oral intake is fair. He is nonoliguric. No active complaints at this time. Vital signs are stable. General: The patient appeared well nourished and normally developed. HEENT: Head exam is unremarkable. Neck is without jugular venous distension. LUNGS: Lungs are clear to auscultation and percussion. Breath sounds decreased. HEART: Rate and Rhythm are regular. First and second heart sounds normal. No murmurs, rubs or gallops. ABDOMEN: Abdominal exam reveals normal bowel sounds. Non-tender and non- distended. No evidence of peritonitis. EXTREMITITES: No clubbing, cyanosis, or edema. Objective - Vital Signs Vital signs: Vital Signs Temp 97.9 F 09/05/18 04:00 Pulse 84 09/05/18 07:00 Resp 24 09/05/18 07:00 BP 136/72 09/05/18 07:00 Pulse Ox 95 09/05/18 07:00 Intake & Output 09/04/18 09/05/18 09/05/18 18:59 06:59 18:59 Intake Total 300 240 Output Total 575 725 Balance -275 -485 Weight 115.8 kg Intake: IV 300 240 Magnesium Sulfate-D5w Pmx 200 1 gm In Dextrose/Water 1 100ml.bag @ 100 mls/hr IVPB Q1H JESS Rx#: [id number] Sodium Chloride 0.9% 1, 100 140 000 ml @ 10 mls/hr IV . Q24H JESS Rx#:[id number] metroNIDAZOLE-NS PMX 500 100 mg In Saline 1 100ml.bag @ 100 mls/hr IVPB Q6HR JESS Rx#:[id number] Output: Urine 575 725 Other: Voiding Method Indwelling Catheter Indwelling Catheter - Labs CBC & Chem 7: 09/05/18 04:20 09/05/18 04:20 Labs: Abnormal Lab Results - Last 24 Hours (Table) 09/04/18 09/04/18 09/04/18 Range/Units 11:53 17:20 19:35 WBC (3.8-10.6) k/uL RBC (4.30-5.90) m/uL Hgb (13.0-17.5) gm/dL Hct (39.0-53.0) % MCHC (31.0-37.0) g/dL RDW (11.5-15.5) % PT (9.0-12.0) sec INR (<1.2) Chloride (98-107) mmol/L Glucose (74-99) mg/dL POC Glucose (mg/dL) 199 H 183 H 165 H (75-99) mg/dL Calcium (8.4-10.2) mg/dL Magnesium (1.6-2.3) mg/dL 09/04/18 09/05/18 09/05/18 Range/Units 21:55 04:20 04:20 WBC (3.8-10.6) k/uL RBC (4.30-5.90) m/uL Hgb (13.0-17.5) gm/dL Hct (39.0-53.0) % MCHC (31.0-37.0) g/dL RDW (11.5-15.5) % PT 15.5 H (9.0-12.0) sec INR 1.5 H (<1.2) Chloride 114 H (98-107) mmol/L Glucose 135 H (74-99) mg/dL POC Glucose (mg/dL) 154 H (75-99) mg/dL Calcium 8.0 L (8.4-10.2) mg/dL Magnesium 1.4 L (1.6-2.3) mg/dL 09/05/18 09/05/18 Range/Units 04:20 07:10 WBC 11.3 H (3.8-10.6) k/uL RBC 2.83 L (4.30-5.90) m/uL Hgb 8.1 L (13.0-17.5) gm/dL Hct 26.7 L (39.0-53.0) % MCHC 30.5 L (31.0-37.0) g/dL RDW 22.1 H (11.5-15.5) % PT (9.0-12.0) sec INR (<1.2) Chloride (98-107) mmol/L Glucose (74-99) mg/dL POC Glucose (mg/dL) 153 H (75-99) mg/dL Calcium (8.4-10.2) mg/dL Magnesium (1.6-2.3) mg/dL Microbiology - Last 24 Hours (Table) 08/31/18 15:15 Blood Culture - Preliminary Blood No Growth after 96 hours 09/01/18 09:38 Stool Culture - Final Stool Assessment and Plan Plan: Assessment: 1. Nonoliguric acute kidney injury mostly prerenal secondary to hypotension and hypovolemia secondary to diarrhea. Improved with IV hydration. Creatinine down to 1.18 today. 2. Chronic kidney disease stage III. Baseline creatinine in the range of 1.1- 1.3 secondary to diabetic kidney disease. 3. Systolic CHF with ejection fraction of 35-40%. 4. Coronary artery disease status post stent to the proximal circumflex artery in July 2018. 5. Diabetes mellitus. 6. Anemia of chronic kidney disease. Iron replete. 7. Metabolic acidosis secondary to acute kidney injury. Better. Maintained on oral sodium bicarbonate. 8. Diarrhea. C. diff negative. No acute bowel pathology on CAT scan. Resolved. 9. Hypomagnesemia from poor oral intake. Plan: Encouraged oral intake. Avoid nephrotoxins. Replace magnesium. 3 g IV today. Maintain Aranesp.
--- NOTE | 2018-09-05 11:41 | PN ---
PROGRESS NOTE HISTORY: Mr. Escudero is a gentleman with ischemic cardiomyopathy. He came in with diarrhea and dehydration which has improved. His renal function has normalized. He is feeling better. He has a little more energy. Echo revealed ejection fraction in the 35 to 40% range with inferior posterior hypokinesia. He is tolerating a combination of Plavix and Xarelto 15 mg very well. I will reintroduce his beta amparo, metoprolol tartrate 25 mg b.i.d., Aldactone 12.5 mg daily, Lasix 40 mg daily and losartan 25 mg at bedtime. These medications will be introduced gradually. His vital signs are stable. S1 and S2 heard normally. Lungs reveal improved air entry. Abdomen and lower exams are otherwise unchanged. MMODL / IJN: [id number] /
[2018-09-05 11:53] LABS: Glucose,Whole Blood 197 mg/dL (75-99)
[2018-09-05] MEDS: SPIRONOLACTONE 25 MG TAB PO SCH (12:01)
[2018-09-05] MEDS: METOPROLOL TARTRATE 25 MG TAB PO SCH ×2 (12:01→20:11)
[2018-09-05] MEDS: FUROSEMIDE 40 MG TAB PO SCH (12:01)
--- NOTE | 2018-09-05 12:56 | P.PN ---
Subjective Progress Note Date: 09/05/18 Principal diagnosis: Acute diarrhea and acute kidney injury Mr. Escudero is a 73-year-old male with a past medical history of recent non-ST elevation VT status post intra-aortic balloon pump , acute kidney injury, systolic congestive heart failure 17 from [facility] was sent to the ED for profuse watery diarrhea. At the time of admission patient had acute kidney injury with creatinine of 4.5 and also lactic acidosis with poor outcome. The patient was given IV fluids and stool was sent to C. diff. C. diff has been negative 2. Cardiology, GI have been consulted and following the patient. The patient has been in the ICU for the last 3 days. His SAI is slowly resolving but due to his IV fluids and his systolic heart failure patient developed interstitial prominence and chest x-rays confirmed it. Today the patient is sitting up in a chair by the bedside and having his lunch. Patient states that his feeling much better. Denies having anymore diarrhea. He states that his appetite is picking up. On review of systems - constitutional-patient denies having any chills fevers or rigors Cardiovascular- Patient denies having any chest pain or palpitations. Respiratory-No difficulty in breathing or cough. GI- no abdominal pain nausea vomiting or diarrhea. -patient still has a Rehman's catheter in place or dark colored urine Objective - Vital Signs Vital signs: Vital Signs Temp 97.9 F 09/05/18 04:00 Pulse 84 09/05/18 07:00 Resp 24 09/05/18 07:00 BP 136/72 09/05/18 07:00 Pulse Ox 95 09/05/18 07:00 Intake & Output 09/04/18 09/05/18 09/05/18 18:59 06:59 18:59 Intake Total 300 240 Output Total 575 725 Balance -275 -485 Weight 115.8 kg Intake: IV 300 240 Magnesium Sulfate-D5w Pmx 200 1 gm In Dextrose/Water 1 100ml.bag @ 100 mls/hr IVPB Q1H JESS Rx#: [id number] Sodium Chloride 0.9% 1, 100 140 000 ml @ 10 mls/hr IV . Q24H JESS Rx#:[id number] metroNIDAZOLE-NS PMX 500 100 mg In Saline 1 100ml.bag @ 100 mls/hr IVPB Q6HR JESS Rx#:[id number] Output: Urine 575 725 Other: Voiding Method Indwelling Catheter Indwelling Catheter - Exam Gen. examination-obese male sitting up in a chair by the bedside and having his lunch HEENT-normocephalic atraumatic. No pallor no icterus Neck - no JVD no thyromegaly Cardiovascular - irregularly irregular. S1-S2 heard Lungs - bilateral breath sounds are diminished at the lower lung bases. Few crackles at the right lower lung base GI-abdomen is soft nontender. Organomegaly difficult to appreciate due to huge body habitus. Bowel sounds are positive. Extremities-no clubbing no cyanosis no edema. 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 No focaldeficits. Psychiatric - appropriate mood and affect - Labs CBC & Chem 7: 09/05/18 04:20 09/05/18 04:20 Labs: Abnormal Lab Results - Last 24 Hours (Table) 09/04/18 09/04/18 09/04/18 Range/Units 17:20 19:35 21:55 WBC (3.8-10.6) k/uL RBC (4.30-5.90) m/uL Hgb (13.0-17.5) gm/dL Hct (39.0-53.0) % MCHC (31.0-37.0) g/dL RDW (11.5-15.5) % PT (9.0-12.0) sec INR (<1.2) Chloride (98-107) mmol/L Glucose (74-99) mg/dL POC Glucose (mg/dL) 183 H 165 H 154 H (75-99) mg/dL Calcium (8.4-10.2) mg/dL Magnesium (1.6-2.3) mg/dL 09/05/18 09/05/18 09/05/18 Range/Units 04:20 04:20 04:20 WBC 11.3 H (3.8-10.6) k/uL RBC 2.83 L (4.30-5.90) m/uL Hgb 8.1 L (13.0-17.5) gm/dL Hct 26.7 L (39.0-53.0) % MCHC 30.5 L (31.0-37.0) g/dL RDW 22.1 H (11.5-15.5) % PT 15.5 H (9.0-12.0) sec INR 1.5 H (<1.2) Chloride 114 H (98-107) mmol/L Glucose 135 H (74-99) mg/dL POC Glucose (mg/dL) (75-99) mg/dL Calcium 8.0 L (8.4-10.2) mg/dL Magnesium 1.4 L (1.6-2.3) mg/dL 09/05/18 09/05/18 Range/Units 07:10 11:49 WBC (3.8-10.6) k/uL RBC (4.30-5.90) m/uL Hgb (13.0-17.5) gm/dL Hct (39.0-53.0) % MCHC (31.0-37.0) g/dL RDW (11.5-15.5) % PT (9.0-12.0) sec INR (<1.2) Chloride (98-107) mmol/L Glucose (74-99) mg/dL POC Glucose (mg/dL) 153 H 197 H (75-99) mg/dL Calcium (8.4-10.2) mg/dL Magnesium (1.6-2.3) mg/dL Microbiology - Last 24 Hours (Table) 08/31/18 15:15 Blood Culture - Preliminary Blood No Growth after 96 hours 09/01/18 09:38 Stool Culture - Final Stool Assessment and Plan Assessment: ASSESSMENT Acute kidney injury-secondary to diarrhea - resolved Acute diarrhea- C. diff negative 2-resolved History of coronary artery disease status post post stenting of the circumflex Congestive heart failure with ischemic cardiomyopathy ejection fraction of 30-35 % AICD in place Paroxysmal atrial fibrillation Type 2 diabetes mellitus COPD Previous history of ITP Chronic anemia Recent History of Cardiogenic Shock Reason history of intra-aortic ballooning Osteoarthritis of the lumbar spine Plan: Patient's diarrhea has resolved. His uremia is slowly resolving. Continue current antibiotics- ceftriaxone and Flagyl. Continue with the rest of the current medication regimen. Further recommendations to follow depending on the progress of the patient the treatment, plan was discussed with the patient at the bedside in detail today.
--- NOTE | 2018-09-05 13:34 | P.PN ---
Subjective Progress Note Date: 09/05/18 This is a 73-year-old male patient with multiple medical positive comorbidities who was recently discharged from the hospital after being treated for an acute non-ST segment elevation myocardial infarction. The patient was transferred to [facility]. Noted the patient was admitted to the hospital on 08/10/2018 when acute non-ST segment elevation myocardial infarction. After a complex cardiac catheterization and stenting during which an intra-aortic balloon pump was inserted, the patient did well. The circumflex was stented. The intra- aortic balloon pump was removed. The pressors were weaned off and the patient was discharged to [facility] for further rehabilitation. Note that during the same hospital stay, the patient had developed an acute kidney injury related to hypotension and contrast nephropathy from which she recovered. He has congestion heart failure with systolic dysfunction and ejection fraction of 35-40%. He was treated with cardiogenic shock. Pneumonia was also suspected and he was given a course of antibiotics and to my recollection he was given IV Zosyn. He has an AICD in place. He has previous history of ITP, colonic diverticulosis, osteoarthritis and chronic anemia. Following his discharge, the patient was gradually rehabilitating and according to the family was doing well until around 3 days ago when he started having profuse watery diarrhea. The diarrhea was constant multiple episodes, liquidy diarrhea more than 10 episodes with some limited vague abdominal pain. Apparently the patient was unable to keep up with his oral intake and the patient became progressively more lethargic. He came into the emergency departmentthis afternoon with marked abnormalities. His white cell count was elevated at 43.7. His hemoglobin was at 8.3. He had acute kidney injury with a creatinine of 4.5 and a BUN of 42. His serum lactic acid level was at 2.5. Troponin was at 0.162. The patient was hypotensive with a systolic in the mid 70s. The patient was given a total of 3 L of IV fluids. Urine output remains minimal. In the ICU inserted triple lumen catheter and we are in the process of resuscitating this patient further. Stool for C. diff was sent and the results are still pending for now. Meanwhile the patient was given a dose of Rocephin and Flagyl. The patient's lipase was at 422. AST and ALT and bilirubin were all within normal limits with mild elevation of the bilirubin up to 1.3. Total protein was 6.2 with an albumin of 3.5. Amylase was 66. Chest x -ray did not show any acute abnormalities. On 09/01/2018 and seeing this patient for a follow-up. Overnight, the patient was given fluids aggressively and a total of 5 L of normal saline was infused. Currently is on 75 mL an hour. He remained hypotensive and the patient was started on pressors and earlier this morning the patient was on 11 g of norepinephrine infusion. Urine output is improved and the patient's produced more than 300 mL of urine output and currently his urine output is about 30 mL an hour. He did have few bouts of diarrhea still. Stools for C. diff 2 has been negative. CAT scan of abdomen was also negative. Abdomen is nondistended and nontender. No. No chills. No headaches. No altered mentation. No worsening shortness of breath. Renal function is improving and the creatinine is down to 4.4. The white cell count is down to 13.8. Hemoglobin is at 8.1. Otherwise, no altered mentation. No other significant events overnight. The patient will be kept in the intensive care unit. Cardiology consultation and GI consultation is pending for now. On 09/02/2018 patient seen in follow-up in the intensive care unit, he is awake and alert, his diarrhea is subsiding, he is a couple of soft stools yesterday, he was seen in consultation by GI service, Questran was added. C. diff was negative. Stool for Cryptosporidium, Giardia and Giardia antigen were negative. Patient still on Levaquin and at 2 mics per minute, he is receiving IV fluids at 75 MLS per hour, today's chest x-ray shows interstitial prominence , bibasilar pleural effusions, changes consistent with congestive heart failure and volume overload. We'll cut the fluids back, patient is tolerating oral intake. Patient is nonoliguric, he is producing urine from 75-170 ML per hour. Today's labs have been reviewed. His leukocytosis is trending down, WBCs 18.8 , hemoglobin is 7.8, INR is 1.2, renal profile is improving, BUN is 34 and creatinine is 2.5 09/03/2018 patient seen in follow-up in the intensive care unit. Patient is stable, his diarrhea is slowing down, and one soft bowel movement last night, and one soft bowel movement this morning. Hemodynamically stable, 0.9 normal saline at a rate of 20 ML per hour, heparin infusion is at 9 units per kilo per hour. Lab work has been reviewed, WBC is 13.1, leukocytosis is improving, hemoglobin is 8.6, platelet count was 260, INR is 1.3, sodium is 143, potassium is 4.1, chloride is 114, CO2 is 20, B1 is 27, creatinine is 1.81. Lung sounds. Lung sounds are positive for some crackles at the right lower lobe, lung sounds are unremarkable. Patient has occasional productive cough with clear torres sputum. Cultures are negative. Hematology has been consulted for her history of idiopathic thrombocytopenic purpura and their consult was noted. On 09/04/2018 I'm seeing this patient for a follow-up. Doing well. No specific complaints. No signs of any respiratory distress. Currently on 2 L of oxygen by nasal cannula. Hemodynamically stable. Any function continues to improve in the creatinine is down to 1.3. He is producing adequate urine output. His cardiac rhythmalthough is having short runs of atrial fibrillation. Based on this, we will put this patient on Xarelto. We'll switch him from Brilinta to Plavix and continue the aspirin for now. This was done in coordination with cardiology. The patient is tolerating his diet. No nausea. No vomiting. No diarrhea. No abdominal pain. No fever. No chills. Leukocytosis improved. His white cell count is down to 11.5. Creatinine is down to 1.3. Mental status is stable. Hemoglobin stable at 8.2. The patient will be discharged out of the intensive care unit to [facility]. He will need aggressive physical therapy and rehabilitation. On 09/05/2018 I'm seeing this patient for a follow-up. Patient is doing extremely well. Has no specific complaints. He is able to sit up on a chair. No cough sputum production chest that is so wheezing no diarrhea. Renal function is normalized. The patient is on anticoagulation. No bleeding complications. The Rehman catheter be removed. The triple-lumen catheter will also be removed. I'm in the process of transferring this patient to a medical surgical floor with remote telemetry. Patient's hemoglobin is at 8.1. The creatinine is at 1.1. The rest of the electrolytes are all within normal limits and the magnesium level needs to be replaced. Objective - Vital Signs Vital signs: Vital Signs Temp 97.9 F 09/05/18 04:00 Pulse 84 09/05/18 07:00 Resp 24 09/05/18 07:00 BP 136/72 09/05/18 07:00 Pulse Ox 95 09/05/18 07:00 Intake & Output 09/04/18 09/05/18 09/05/18 18:59 06:59 18:59 Intake Total 300 240 Output Total 575 725 Balance -275 -485 Weight 115.8 kg Intake: IV 300 240 Magnesium Sulfate-D5w Pmx 200 1 gm In Dextrose/Water 1 100ml.bag @ 100 mls/hr IVPB Q1H JESS Rx#: [id number] Sodium Chloride 0.9% 1, 100 140 000 ml @ 10 mls/hr IV . Q24H JESS Rx#:[id number] metroNIDAZOLE-NS PMX 500 100 mg In Saline 1 100ml.bag @ 100 mls/hr IVPB Q6HR JESS Rx#:[id number] Output: Urine 575 725 Other: Voiding Method Indwelling Catheter Indwelling Catheter - Exam GENERAL EXAM: Alert, pleasant, 73-year-old obese white male comfortable in no apparent distress. The patient is resting comfortably in bed on oxygen at 2 L per minute nasal cannula. HEAD: Normocephalic/atraumatic. EYES: Normal reaction of pupils, equal size. Conjunctiva pink, sclera white. NOSE: Clear with pink turbinates. THROAT: No erythema or exudates. NECK: No masses, no JVD, no thyroid enlargement, no adenopathy. The patient also has a triple lumen catheter in the right IJ. CHEST: No chest wall deformity. Symmetrical expansion. LUNGS: Breath sounds are diminished bilaterally and the lungs are clear with some limited crackles right lower lobe CVS: Irregular rate and rhythm, normal S1 and S2, no gallops, no murmurs, no rubs, the patient has occasional paced rhythm and the rhythm is somewhat irregular at this point in time. ABDOMEN: Soft, nontender. No hepatosplenomegaly, normal bowel sounds, no guarding or rigidity. EXTREMITIES: No clubbing, no edema, no cyanosis, diminished pulses and upper and lower extremities. MUSCULOSKELETAL: Muscle strength and tone normal. SPINE: No scoliosis or deformity SKIN: No rashes CENTRAL NERVOUS SYSTEM: Alert and oriented -3. No focal deficits, tone is normal in all 4 extremities. PSYCHIATRIC: Alert and oriented -3. Appropriate affect. Intact judgment and insight. - Labs CBC & Chem 7: 09/05/18 04:20 09/05/18 04:20 Labs: Abnormal Lab Results - Last 24 Hours (Table) 09/04/18 09/04/18 09/04/18 Range/Units 17:20 19:35 21:55 WBC (3.8-10.6) k/uL RBC (4.30-5.90) m/uL Hgb (13.0-17.5) gm/dL Hct (39.0-53.0) % MCHC (31.0-37.0) g/dL RDW (11.5-15.5) % PT (9.0-12.0) sec INR (<1.2) Chloride (98-107) mmol/L Glucose (74-99) mg/dL POC Glucose (mg/dL) 183 H 165 H 154 H (75-99) mg/dL Calcium (8.4-10.2) mg/dL Magnesium (1.6-2.3) mg/dL 09/05/18 09/05/18 09/05/18 Range/Units 04:20 04:20 04:20 WBC 11.3 H (3.8-10.6) k/uL RBC 2.83 L (4.30-5.90) m/uL Hgb 8.1 L (13.0-17.5) gm/dL Hct 26.7 L (39.0-53.0) % MCHC 30.5 L (31.0-37.0) g/dL RDW 22.1 H (11.5-15.5) % PT 15.5 H (9.0-12.0) sec INR 1.5 H (<1.2) Chloride 114 H (98-107) mmol/L Glucose 135 H (74-99) mg/dL POC Glucose (mg/dL) (75-99) mg/dL Calcium 8.0 L (8.4-10.2) mg/dL Magnesium 1.4 L (1.6-2.3) mg/dL 09/05/18 09/05/18 Range/Units 07:10 11:49 WBC (3.8-10.6) k/uL RBC (4.30-5.90) m/uL Hgb (13.0-17.5) gm/dL Hct (39.0-53.0) % MCHC (31.0-37.0) g/dL RDW (11.5-15.5) % PT (9.0-12.0) sec INR (<1.2) Chloride (98-107) mmol/L Glucose (74-99) mg/dL POC Glucose (mg/dL) 153 H 197 H (75-99) mg/dL Calcium (8.4-10.2) mg/dL Magnesium (1.6-2.3) mg/dL Microbiology - Last 24 Hours (Table) 08/31/18 15:15 Blood Culture - Preliminary Blood No Growth after 96 hours 09/01/18 09:38 Stool Culture - Final Stool Assessment and Plan Plan: Assessment 1 acute diarrhea with intravascular volume depletion, dehydration and some vague limited abdominal pain. Abdominal pain is subsided and the patient is repeated and the diarrhea has recovered.. 2 acute leukocytosis, currently under investigation. The white cell count is normalized 3 acute hypotension secondary to intravascular volume depletion. The patient was resuscitated IV fluids and the patient's condition is back to its baseline including his blood pressure. 4 acute kidney injury secondary to intravascular volume depletion. Renal function continues to improve in the creatinine is down to 1.1 5 history of coronary artery disease with previous non-ST segment elevation myocardial infarction requiring emergent cardiac catheterization and stenting of the circumflex 6 previous history of cardiogenic shock post cardiac catheterization and insertion of a stent. The patient was supported by intra-aortic balloon pump is pressors back in March 2018 7 congestion heart failure with ischemic cardiomyopathy and ejection fraction of 30-35%. The patient has an AICD in place 8 diabetes mellitus type 2 9 COPD 10 previous history of ITP 11 chronic anemia 12 elevation of lipase, pancreatitis is doubtful. 13 acute lactic acidosis, improving and the lactic acid level has normalized down to 1.4. 14 paroxysmal atrial fibrillation with a background paced rhythm Plan Patient is stable. The patient will be transferred out the medical floor. Discontinue Rehman catheter. Discontinue the triple-lumen catheter. Continue anticoagulation. Continue IV antibiotics and a total of 1 week course will be given to this patient. Will start working on physical therapy and discharge planning.
[2018-09-05] MEDS: CHOLESTYRAMINE (WITH SUGAR) 4 GM PACKET PO SCH ×2 (13:36→17:32)
[2018-09-05 17:02] LABS: Glucose,Whole Blood 164 mg/dL (75-99)
[2018-09-05 20:07] LABS: Glucose,Whole Blood 144 mg/dL (75-99)
[2018-09-05] MEDS: MAGNESIUM OXIDE 400 MG TAB PO SCH (20:11)
[2018-09-05] MEDS: MELATONIN 3 MG TABLET PO SCH (20:11)
[2018-09-05] MEDS: ATORVASTATIN 40 MG TAB PO SCH (20:11)
[2018-09-05] MEDS: LOSARTAN 25 MG TAB PO SCH (20:11)
[2018-09-05] MEDS ORDERED: FUROSEMIDE 10 MG/ML 2 ML VIAL IV ONE (22:11)
[2018-09-06] MEDS: metroNIDAZOLE-NS PMX 500 MG in SALINE 1 100ML.BAG IVPB SCH ×5 (01:23→23:23)
[2018-09-06 05:01] LABS: Anisocytosis Moderate; HGB 7.9 gm/dL (13.0-17.5); Hypochromasia Marked; MCH 28.3 pg (25.0-35.0); MCHC 30.3 g/dL (31.0-37.0); MCV 93.4 fL (80.0-100.0); Macrocytosis Slight; Mean Platelet Volume 11.6; Platelet Count 202 k/uL (150-450); Poikilocytosis Slight; RBC 2.78 m/uL (4.30-5.90); RDW 21.6 % (11.5-15.5); WBC 7.7 k/uL (3.8-10.6)
[2018-09-06 05:18] LABS: Calcium 8.3 mg/dL (8.4-10.2)
[2018-09-06 05:44] LABS: Band Neutrophils % 1 %; Eosinophils # (M) 0.08 k/uL (0-0.7); Lymphocytes # (M) 0.69 k/uL (1.0-4.8); Metamyelocytes # (M) 0.08 k/uL (0); Metamyelocytes % 1 %; Monocytes # (M) 2.31 k/uL (0-1.0); Myelocytes # (M) 0.08 k/uL (0); Myelocytes % 1 %; Neutrophils % (M) 59 %; Nucleated Red Blood Cells 0 /100 WBC (0-0); Total Cells Counted 200
[2018-09-06] MEDS: INSULIN ASPART 100 UNIT/ML 1 ML 10 ML VIAL SQ SCH ×4 (07:19→20:20)
[2018-09-06] MEDS: FUROSEMIDE 40 MG TAB PO SCH (09:32)
[2018-09-06] MEDS: CLOPIDOGREL 75 MG TAB PO SCH (09:32)
[2018-09-06] MEDS: SODIUM BICARBONATE TAB 650 MG TAB PO SCH ×2 (09:32→20:19)
[2018-09-06] MEDS: PANTOPRAZOLE 40 MG TABLET PO SCH (09:32)
[2018-09-06] MEDS: guaiFENesin 600 MG TABLET.ER PO SCH ×2 (09:32→20:19)
[2018-09-06] MEDS: LOPERAMIDE 2 MG CAP PO SCH ×4 (09:32→20:19)
[2018-09-06] MEDS: METOPROLOL TARTRATE 25 MG TAB PO SCH ×2 (09:32→20:19)
[2018-09-06] MEDS: LINAGLIPTIN 5 MG TABLET PO SCH (09:32)
[2018-09-06] MEDS: RIVAROXABAN 15 MG TAB PO SCH (09:32)
[2018-09-06] MEDS: ELTROMBOPAG OLAMINE 50 MG PO SCH (09:33)
[2018-09-06] MEDS: FLUTICASONE 50MCG/SPRAY NASAL 16GM EA NOSTRIL SCH (09:33)
[2018-09-06] MEDS: SPIRONOLACTONE 25 MG TAB PO SCH (09:34)
[2018-09-06] MEDS: CHOLESTYRAMINE (WITH SUGAR) 4 GM PACKET PO SCH ×2 (09:36→17:07)
[2018-09-06 12:14] LABS: Glucose,Whole Blood 152 mg/dL (75-99)
--- NOTE | 2018-09-06 13:58 | P.PN ---
Subjective Progress Note Date: 09/06/18 Principal diagnosis: Diarrhea, with intravascular volume depletion, hypovolemic shock This is a 73-year-old male patient with multiple medical positive comorbidities who was recently discharged from the hospital after being treated for an acute non-ST segment elevation myocardial infarction. The patient was transferred to [facility]. Noted the patient was admitted to the hospital on 08/10/2018 when acute non-ST segment elevation myocardial infarction. After a complex cardiac catheterization and stenting during which an intra-aortic balloon pump was inserted, the patient did well. The circumflex was stented. The intra- aortic balloon pump was removed. The pressors were weaned off and the patient was discharged to [facility] for further rehabilitation. Note that during the same hospital stay, the patient had developed an acute kidney injury related to hypotension and contrast nephropathy from which she recovered. He has congestion heart failure with systolic dysfunction and ejection fraction of 35-40%. He was treated with cardiogenic shock. Pneumonia was also suspected and he was given a course of antibiotics and to my recollection he was given IV Zosyn. He has an AICD in place. He has previous history of ITP, colonic diverticulosis, osteoarthritis and chronic anemia. Following his discharge, the patient was gradually rehabilitating and according to the family was doing well until around 3 days ago when he started having profuse watery diarrhea. The diarrhea was constant multiple episodes, liquidy diarrhea more than 10 episodes with some limited vague abdominal pain. Apparently the patient was unable to keep up with his oral intake and the patient became progressively more lethargic. He came into the emergency departmentthis afternoon with marked abnormalities. His white cell count was elevated at 43.7. His hemoglobin was at 8.3. He had acute kidney injury with a creatinine of 4.5 and a BUN of 42. His serum lactic acid level was at 2.5. Troponin was at 0.162. The patient was hypotensive with a systolic in the mid 70s. The patient was given a total of 3 L of IV fluids. Urine output remains minimal. In the ICU inserted triple lumen catheter and we are in the process of resuscitating this patient further. Stool for C. diff was sent and the results are still pending for now. Meanwhile the patient was given a dose of Rocephin and Flagyl. The patient's lipase was at 422. AST and ALT and bilirubin were all within normal limits with mild elevation of the bilirubin up to 1.3. Total protein was 6.2 with an albumin of 3.5. Amylase was 66. Chest x -ray did not show any acute abnormalities. On 09/01/2018 and seeing this patient for a follow-up. Overnight, the patient was given fluids aggressively and a total of 5 L of normal saline was infused. Currently is on 75 mL an hour. He remained hypotensive and the patient was started on pressors and earlier this morning the patient was on 11 g of norepinephrine infusion. Urine output is improved and the patient's produced more than 300 mL of urine output and currently his urine output is about 30 mL an hour. He did have few bouts of diarrhea still. Stools for C. diff 2 has been negative. CAT scan of abdomen was also negative. Abdomen is nondistended and nontender. No. No chills. No headaches. No altered mentation. No worsening shortness of breath. Renal function is improving and the creatinine is down to 4.4. The white cell count is down to 13.8. Hemoglobin is at 8.1. Otherwise, no altered mentation. No other significant events overnight. The patient will be kept in the intensive care unit. Cardiology consultation and GI consultation is pending for now. On 09/02/2018 patient seen in follow-up in the intensive care unit, he is awake and alert, his diarrhea is subsiding, he is a couple of soft stools yesterday, he was seen in consultation by GI service, Questran was added. C. diff was negative. Stool for Cryptosporidium, Giardia and Giardia antigen were negative. Patient still on Levaquin and at 2 mics per minute, he is receiving IV fluids at 75 MLS per hour, today's chest x-ray shows interstitial prominence , bibasilar pleural effusions, changes consistent with congestive heart failure and volume overload. We'll cut the fluids back, patient is tolerating oral intake. Patient is nonoliguric, he is producing urine from 75-170 ML per hour. Today's labs have been reviewed. His leukocytosis is trending down, WBCs 18.8 , hemoglobin is 7.8, INR is 1.2, renal profile is improving, BUN is 34 and creatinine is 2.5 09/03/2018 patient seen in follow-up in the intensive care unit. Patient is stable, his diarrhea is slowing down, and one soft bowel movement last night, and one soft bowel movement this morning. Hemodynamically stable, 0.9 normal saline at a rate of 20 ML per hour, heparin infusion is at 9 units per kilo per hour. Lab work has been reviewed, WBC is 13.1, leukocytosis is improving, hemoglobin is 8.6, platelet count was 260, INR is 1.3, sodium is 143, potassium is 4.1, chloride is 114, CO2 is 20, B1 is 27, creatinine is 1.81. Lung sounds. Lung sounds are positive for some crackles at the right lower lobe, lung sounds are unremarkable. Patient has occasional productive cough with clear torres sputum. Cultures are negative. Hematology has been consulted for her history of idiopathic thrombocytopenic purpura and their consult was noted. On 09/06/2018 patient seen in follow-up on selective care unit, alert, in no acute distress, denies any dyspnea or chest pain, his diarrhea has resolved, vital signs are stable, no specific complaints, patient states he hasn't been up walking very much because he needs a walker. After discharge he will be discharged to subacute rehab. These labs have been reviewed, showed WBC of 7.7 , hemoglobin is 7.9, electrolytes and renal profile are unremarkable. Her pulse ox is 95%, lung sounds are clear to auscultation. Objective - Vital Signs Vital signs: Vital Signs Temp 98.0 F 09/06/18 12:00 Pulse 71 09/06/18 12:00 Resp 16 09/06/18 12:00 BP 117/56 09/06/18 12:00 Pulse Ox 95 09/06/18 12:00 Intake & Output 09/05/18 09/06/18 09/06/18 18:59 06:59 18:59 Intake Total 520 140 590 Output Total 575 550 200 Balance -55 -410 390 Weight 110.4 kg Intake: IV 520 140 110 Magnesium Sulfate-D5w Pmx 300 1 gm In Dextrose/Water 1 100ml.bag @ 100 mls/hr IVPB Q1H [facility] Rx#: [id number] Sodium Chloride 0.9% 1, 120 40 10 000 ml @ 10 mls/hr IV . Q24H [facility] Rx#:[id number] metroNIDAZOLE-NS PMX 500 100 100 100 mg In Saline 1 100ml.bag @ 100 mls/hr IVPB Q6HR [facility] Rx#:[id number] Oral 480 Output: Urine 575 550 200 Other: Voiding Method Urinal Bedside Commode Urinal # Voids 4 1 # Bowel Movements 1 - Exam GENERAL EXAM: Alert, pleasant, 73-year-old obese white male comfortable in no apparent distress. The patient is resting comfortably in bed on oxygen at 1 L per minute nasal cannula. HEAD: Normocephalic/atraumatic. EYES: Normal reaction of pupils, equal size. Conjunctiva pink, sclera white. NOSE: Clear with pink turbinates. THROAT: No erythema or exudates. NECK: No masses, no JVD, no thyroid enlargement, no adenopathy. The patient also has a triple lumen catheter in the right IJ. CHEST: No chest wall deformity. Symmetrical expansion. LUNGS: Breath sounds are clear CVS: Irregular rate and rhythm, normal S1 and S2, no gallops, no murmurs, no rubs, the patient has occasional paced rhythm and the rhythm is somewhat irregular at this point in time. ABDOMEN: Soft, nontender. No hepatosplenomegaly, normal bowel sounds, no guarding or rigidity. EXTREMITIES: No clubbing, no edema, no cyanosis, diminished pulses and upper and lower extremities. MUSCULOSKELETAL: Muscle strength and tone normal. SPINE: No scoliosis or deformity SKIN: No rashes CENTRAL NERVOUS SYSTEM: Alert and oriented -3. No focal deficits, tone is normal in all 4 extremities. PSYCHIATRIC: Alert and oriented -3. Appropriate affect. Intact judgment and insight. - Labs CBC & Chem 7: 09/06/18 04:41 09/06/18 04:41 Labs: Abnormal Lab Results - Last 24 Hours (Table) 09/05/18 09/05/18 09/06/18 Range/Units 16:59 20:04 04:41 RBC 2.78 L (4.30-5.90) m/uL Hgb 7.9 L (13.0-17.5) gm/dL Hct 26.0 L (39.0-53.0) % MCHC 30.3 L (31.0-37.0) g/dL RDW 21.6 H (11.5-15.5) % Lymphocytes # (Manual) 0.69 L (1.0-4.8) k/uL Monocytes # (Manual) 2.31 H (0-1.0) k/uL Metamyelocytes # (Man) 0.08 H (0) k/uL Myelocytes # (Manual) 0.08 H (0) k/uL Chloride (98-107) mmol/L Glucose (74-99) mg/dL POC Glucose (mg/dL) 164 H 144 H (75-99) mg/dL Calcium (8.4-10.2) mg/dL Magnesium (1.6-2.3) mg/dL 09/06/18 09/06/18 09/06/18 Range/Units 04:41 04:41 12:11 RBC (4.30-5.90) m/uL Hgb (13.0-17.5) gm/dL Hct (39.0-53.0) % MCHC (31.0-37.0) g/dL RDW (11.5-15.5) % Lymphocytes # (Manual) (1.0-4.8) k/uL Monocytes # (Manual) (0-1.0) k/uL Metamyelocytes # (Man) (0) k/uL Myelocytes # (Manual) (0) k/uL Chloride 110 H (98-107) mmol/L Glucose 128 H (74-99) mg/dL POC Glucose (mg/dL) 152 H (75-99) mg/dL Calcium 8.3 L (8.4-10.2) mg/dL Magnesium 1.4 L (1.6-2.3) mg/dL Microbiology - Last 24 Hours (Table) 08/31/18 15:15 Blood Culture - Preliminary Blood No Growth after 120 hours Assessment and Plan Plan: 1 acute diarrhea with intravascular volume depletion, dehydration, hypovolemic shock and some vague limited abdominal pain. CAT scan of the abdomen was negative. Stool for C. diff was also negative. The patient is being hydrated. He will be started on Imodium and Questran. 2 acute leukocytosis, currently under investigation. The white cell count is improving. 3 acute hypotension secondary to intravascular volume depletion. Rule out underlying component of sepsis contributing to the low blood pressure. 4 acute kidney injury secondary to intravascular volume depletion. The patient was assisted IV fluids. The patient was given IV normal saline bolus and his urine output is improving and it creatinine is down to 4.4. No evidence of hydronephrosis based on the CAT scan of the abdomen. 5 history of coronary artery disease with previous non-ST segment elevation myocardial infarction requiring emergent cardiac catheterization and stenting of the circumflex 6 previous history of cardiogenic shock post cardiac catheterization and insertion of a stent. The patient was supported by intra-aortic balloon pump is pressors back in March 2018 7 congestion heart failure with ischemic cardiomyopathy and ejection fraction of 30-35%. The patient has an AICD in place 8 diabetes mellitus type 2 9 COPD 10 previous history of ITP 11 chronic anemia 12 elevation of lipase, pancreatitis is doubtful. 13 acute lactic acidosis, improving and the lactic acid level has normalized down to 1.4. 14 paroxysmal atrial fibrillation with a background paced rhythm Plan: Patient remains stable, no acute events overnight, no specific complaints, increase activity as tolerated, no complaints of dyspnea or chest pain, his diarrhea has resolved, will profile has improved, electrolytes are unremarkable. Anticipate discharge to subacute rehab soon. We'll see on as- needed basis. I performed a history & physical examination of the patient and discussed their management with my nurse practitioner, Kelsi Freeman. I reviewed the nurse practitioner's note and agree with the documented findings and plan of care. Lung sounds are diminished. The findings and the impression was discussed with the patient. I attest to the documentation by the nurse practitioner. Time with Patient: Less than 30
[2018-09-06 14:47] VITALS: BMI 33.0
--- NOTE | 2018-09-06 15:40 | P.PN ---
Subjective Progress Note Date: 09/06/18 Principal diagnosis: Acute diarrhea and acute kidney injury Mr. Escudero is a 73-year-old male with a past medical history of recent non-ST elevation RI status post intra-aortic balloon pump , acute kidney injury, systolic congestive heart failure 17 from [facility] was sent to the ED for profuse watery diarrhea. At the time of admission patient had acute kidney injury with creatinine of 4.5 and also lactic acidosis with poor outcome. The patient was given IV fluids and stool was sent to C. diff. C. diff has been negative 2. Cardiology, GI have been consulted and following the patient. The patient has been in the ICU for the last 3 days. His SAI is slowly resolving but due to his IV fluids and his systolic heart failure patient developed interstitial prominence and chest x-rays confirmed it. On 09/06/18 - patient is lying in bed appears to be no acute distress. Patient states that his feeling much better. Denies having anymore diarrhea. He states that his appetite is picking up slowly. On review of systems - constitutional-patient denies having any chills fevers or rigors Cardiovascular- Patient denies having any chest pain or palpitations. Respiratory-No difficulty in breathing or cough. GI- no abdominal pain nausea vomiting or diarrhea. -no dysuria or hematuria Active Medications Acetaminophen (Tylenol Tab) 650 mg PO Q6H PRN PRN Reason: Pain Atorvastatin Calcium (Lipitor) 40 mg PO HS [facility] Last Admin: 09/05/18 20:11 Dose: 40 mg Cholestyramine Resin (Questran) 4 gm PO BID@1000,1800 [facility] Last Admin: 09/06/18 09:36 Dose: Not Given Clopidogrel Bisulfate (Plavix) 75 mg PO DAILY [facility] Last Admin: 09/06/18 09:32 Dose: 75 mg Darbepoetin Bret (Aranesp) 40 mcg SQ Q7D [facility] Last Admin: 09/04/18 10:39 Dose: 40 mcg Fluticasone Propionate (Flonase Nasal [place]) 2 spray EA NOSTRIL DAILY [facility] Last Admin: 09/06/18 09:33 Dose: 2 spray Furosemide (Lasix) 40 mg PO DAILY [facility] Last Admin: 09/06/18 09:32 Dose: 40 mg Guaifenesin (Mucinex) 1,200 mg PO Q12HR [facility] Last Admin: 09/06/18 09:32 Dose: 1,200 mg Sodium Chloride (Saline 0.9%) 1,000 mls @ 10 mls/hr IV .Q24H [facility] Last Admin: 09/05/18 17:31 Dose: 10 mls/hr Ceftriaxone Sodium 1,000 mg/ (Sodium Chloride) 50 mls @ 100 mls/hr IVPB Q24HR [facility] Last Admin: 09/06/18 10:36 Dose: 100 mls/hr Metronidazole 500 mg/ IV (Solution) 100 mls @ 100 mls/hr IVPB Q6HR [facility] Last Admin: 09/06/18 12:42 Dose: 100 mls/hr Insulin Aspart (Novolog) 0 unit SQ ACHS [facility]; Protocol Last Admin: 09/06/18 12:39 Dose: 2 unit Linagliptin (Tradjenta) 5 mg PO DAILY [facility] Last Admin: 09/06/18 09:32 Dose: 5 mg Loperamide HCl (Imodium) 2 mg PO QID [facility] Last Admin: 09/06/18 12:39 Dose: 2 mg Losartan Potassium (Cozaar) 25 mg PO [facility] Last Admin: 09/05/18 20:11 Dose: 25 mg Magnesium Oxide (Mag-Ox) 400 mg PO HS [facility] Last Admin: 09/05/18 20:11 Dose: 400 mg Melatonin (Melatonin) 3 mg PO [facility] Last Admin: 09/05/18 20:11 Dose: 3 mg Methyl Salicylate (Thera-Gesic Cream) 1 applic TOPICAL TID PRN PRN Reason: Pain Metoprolol Tartrate (Lopressor) 25 mg PO BID [facility] Last Admin: 09/06/18 09:32 Dose: 25 mg Naloxone HCl (Narcan) 0.2 mg IV Q2M PRN PRN Reason: Opioid Reversal Nitroglycerin (Nitrostat) 0.4 mg SUBLINGUAL Q5M PRN PRN Reason: CHEST PAIN Patient's Own ( Eltrombopag Olamine [Promacta] 50 Mg) 50 mg PO DAILY [facility] Last Admin: 09/06/18 09:33 Dose: 50 mg Ondansetron HCl (Zofran) 4 mg IVP Q8HR PRN PRN Reason: Nausea And Vomiting Pantoprazole Sodium (Protonix) 40 mg PO DAILY [facility] Last Admin: 09/06/18 09:32 Dose: 40 mg Rivaroxaban (Xarelto) 15 mg PO DAILY [facility] Last Admin: 09/06/18 09:32 Dose: 15 mg Sodium Bicarbonate (Sodium Bicarbonate Tab) 650 mg PO BID [facility] Last Admin: 09/06/18 09:32 Dose: 650 mg Spironolactone (Aldactone) 12.5 mg PO DAILY [facility] Last Admin: 09/06/18 09:34 Dose: 12.5 mg Objective - Vital Signs Vital signs: Vital Signs Temp 98.0 F 09/06/18 12:00 Pulse 71 09/06/18 12:00 Resp 16 09/06/18 12:00 BP 117/56 09/06/18 12:00 Pulse Ox 95 09/06/18 12:00 Intake & Output 09/05/18 09/06/18 09/06/18 18:59 06:59 18:59 Intake Total 520 140 590 Output Total 575 550 200 Balance -55 -410 390 Weight 110.4 kg 110.4 kg Intake: IV 520 140 110 Magnesium Sulfate-D5w Pmx 300 1 gm In Dextrose/Water 1 100ml.bag @ 100 mls/hr IVPB Q1H [facility] Rx#: [id number] Sodium Chloride 0.9% 1, 120 40 10 000 ml @ 10 mls/hr IV . Q24H [facility] Rx#:[id number] metroNIDAZOLE-NS PMX 500 100 100 100 mg In Saline 1 100ml.bag @ 100 mls/hr IVPB Q6HR [facility] Rx#:[id number] Oral 480 Output: Urine 575 550 200 Other: Voiding Method Urinal Bedside Commode Urinal # Voids 4 1 # Bowel Movements 1 - Exam Gen. examination-obese male sitting up in a chair by the bedside and having his lunch HEENT-normocephalic atraumatic. No pallor no icterus Neck - no JVD no thyromegaly Cardiovascular - irregularly irregular. S1-S2 heard Lungs - bilateral breath sounds are diminished at the lower lung bases. Few crackles at the right lower lung base GI-abdomen is soft nontender. Organomegaly difficult to appreciate due to huge body habitus. Bowel sounds are positive. Extremities-no clubbing no cyanosis no edema. 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 No focaldeficits. Psychiatric - appropriate mood and affect - Labs CBC & Chem 7: 09/06/18 04:41 09/06/18 04:41 Labs: Abnormal Lab Results - Last 24 Hours (Table) 09/05/18 09/05/18 09/06/18 Range/Units 16:59 20:04 04:41 RBC 2.78 L (4.30-5.90) m/uL Hgb 7.9 L (13.0-17.5) gm/dL Hct 26.0 L (39.0-53.0) % MCHC 30.3 L (31.0-37.0) g/dL RDW 21.6 H (11.5-15.5) % Lymphocytes # (Manual) 0.69 L (1.0-4.8) k/uL Monocytes # (Manual) 2.31 H (0-1.0) k/uL Metamyelocytes # (Man) 0.08 H (0) k/uL Myelocytes # (Manual) 0.08 H (0) k/uL Chloride (98-107) mmol/L Glucose (74-99) mg/dL POC Glucose (mg/dL) 164 H 144 H (75-99) mg/dL Calcium (8.4-10.2) mg/dL Magnesium (1.6-2.3) mg/dL 09/06/18 09/06/18 09/06/18 Range/Units 04:41 04:41 12:11 RBC (4.30-5.90) m/uL Hgb (13.0-17.5) gm/dL Hct (39.0-53.0) % MCHC (31.0-37.0) g/dL RDW (11.5-15.5) % Lymphocytes # (Manual) (1.0-4.8) k/uL Monocytes # (Manual) (0-1.0) k/uL Metamyelocytes # (Man) (0) k/uL Myelocytes # (Manual) (0) k/uL Chloride 110 H (98-107) mmol/L Glucose 128 H (74-99) mg/dL POC Glucose (mg/dL) 152 H (75-99) mg/dL Calcium 8.3 L (8.4-10.2) mg/dL Magnesium 1.4 L (1.6-2.3) mg/dL Microbiology - Last 24 Hours (Table) 08/31/18 15:15 Blood Culture - Preliminary Blood No Growth after 120 hours Assessment and Plan Assessment: ASSESSMENT Acute kidney injury-secondary to diarrhea - resolved Acute diarrhea- C. diff negative 2-resolved History of coronary artery disease status post post stenting of the circumflex Congestive heart failure with ischemic cardiomyopathy ejection fraction of 30-35 % AICD in place Paroxysmal atrial fibrillation Type 2 diabetes mellitus COPD Previous history of ITP Chronic anemia Recent History of Cardiogenic Shock Reason history of intra-aortic ballooning Osteoarthritis of the lumbar spine Plan: Patient's diarrhea has resolved. His uremia is slowly resolving. Continue current antibiotics- ceftriaxone and Flagyl. Continue with the rest of the current medication regimen. Further recommendations to follow depending on the progress of the patient the treatment, plan was discussed with the patient at the bedside in detail today. Patient has a place to go to a facility in [place] tomorrow.
--- NOTE | 2018-09-06 16:24 | PN ---
PROGRESS NOTE Mr. Escudero is doing much better today. Denies any chest pain or shortness of breath. He has ischemic cardiomyopathy, ejection fraction in the 40% range, his breathing is easier. Renal function is improved. Vital signs are stable. There is JVD of 1 cm. No carotid bruit. S1-S2 heard normally. Short systolic murmur noted. Lungs reveal improved air entry. Abdomen and lower extremity exam is unchanged. Plan is to continue current medications, increase activity and plan for discharge soon. I will see him as needed from a cardiac standpoint. MMODL / IJN: [id number] /
[2018-09-06 16:37] LABS: Glucose,Whole Blood 160 mg/dL (75-99)
[2018-09-06] MEDS: SODIUM CHLORIDE 0.9% 1,000 ML IV SCH (18:34)
[2018-09-06 20:04] LABS: Glucose,Whole Blood 169 mg/dL (75-99)
[2018-09-06] MEDS: LOSARTAN 25 MG TAB PO SCH (20:19)
[2018-09-06] MEDS: MELATONIN 3 MG TABLET PO SCH (20:19)
[2018-09-06] MEDS: ATORVASTATIN 40 MG TAB PO SCH (20:19)
[2018-09-06] MEDS: MAGNESIUM OXIDE 400 MG TAB PO SCH ×2 (20:19→22:27)
--- NOTE | 2018-09-06 22:21 | PN ---
PROGRESS NOTE Patient is seen for followup for acute kidney injury. He is currently doing much better. Renal function has improved significantly, with creatinine down to 1.24 from 4.59 on initial admission. On examination, blood pressure this morning was 95/64. Another blood pressure was 109/77, heart rate 69 per minute. Patient is afebrile. EXAMINATION OF THE HEART: S1, S2. EXAMINATION OF LUNGS: Bilateral breath sounds are heard. ABDOMEN: Soft, non-tender. Examination of lower extremities shows trace edema bilaterally. 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 Labs show sodium 142, potassium 4.0, chloride 110. CO2 is 25, BUN 19, serum creatinine 1.24, hemoglobin 7.9 g/dL. ASSESSMENT: 1. Acute kidney injury, acute tubular necrosis, secondary to hypotension, hypoperfusion, currently improved. 2. Chronic kidney disease, stage III, secondary to diabetic kidney disease. 3. Congestive heart failure. 4. Cardiomyopathy. Ejection fraction 35% to 40%. 5. Coronary artery disease, status post coronary stent in July of 2018. 6. Metabolic acidosis secondary to renal failure, maintained on oral sodium bicarb. 7. Hypomagnesemia, status post replacement. PLAN: Maintain oral hypomagnesemia supplementation. Repeat labs in a.m. Patient is stable for discharge from nephrology standpoint. MMODL / IJN: [id number] /
--- NOTE | 2018-09-06 22:50 | P.PN ---
Subjective Progress Note Date: 09/06/18 Principal diagnosis: Diarrhea Patient is lying in bed denying any abdominal pain and reporting that he is tolerating his diet. He reports that he had 2 bowel movements today which were formed and nonbloody. Objective - Vital Signs Vital signs: Vital Signs Temp 98.5 F 09/06/18 20:07 Pulse 78 09/06/18 20:07 Resp 16 09/06/18 16:00 BP 113/59 09/06/18 20:07 Pulse Ox 94 L 09/06/18 20:07 Intake & Output 09/06/18 09/06/18 09/07/18 06:59 18:59 06:59 Intake Total 140 1010 Output Total 550 200 100 Balance -410 810 -100 Weight 110.4 kg 110.4 kg Intake: IV 140 190 Sodium Chloride 0.9% 1, 40 90 000 ml @ 10 mls/hr IV . Q24H JESS Rx#:[id number] metroNIDAZOLE-NS PMX 500 100 100 mg In Saline 1 100ml.bag @ 100 mls/hr IVPB Q6HR JESS Rx#:[id number] Intake, IV Titration 100 Amount cefTRIAXone 1,000 mg In 100 Sodium Chloride 0.9% 50 ml @ 100 mls/hr IVPB Q24HR JESS Rx#:[id number] Oral 720 Output: Urine 550 200 100 Other: Voiding Method Bedside Commode Toilet Urinal Bedside Commode Urinal # Voids 4 1 1 # Bowel Movements 1 - Exam On physical examination, patient appears comfortable in no apparent distress. HEAD: Normocephalic, atraumatic. EYES: No scleral icterus. No conjunctival injection. MOUTH: No lesions, tongue midline. NECK: Trachea midline, no gross abnormalities. ABDOMEN: Soft, obese. Bowel sounds are positive. No organomegaly. No guarding or rigidity. EXTREMITIES: Mild pedal edema. SKIN: No rashes, no jaundice. NEUROLOGIC: Alert and oriented. No focal deficits. - Labs CBC & Chem 7: 09/06/18 04:41 09/06/18 04:41 Labs: Abnormal Lab Results - Last 24 Hours (Table) 09/06/18 09/06/18 09/06/18 Range/Units 04:41 04:41 04:41 RBC 2.78 L (4.30-5.90) m/uL Hgb 7.9 L (13.0-17.5) gm/dL Hct 26.0 L (39.0-53.0) % MCHC 30.3 L (31.0-37.0) g/dL RDW 21.6 H (11.5-15.5) % Lymphocytes # (Manual) 0.69 L (1.0-4.8) k/uL Monocytes # (Manual) 2.31 H (0-1.0) k/uL Metamyelocytes # (Man) 0.08 H (0) k/uL Myelocytes # (Manual) 0.08 H (0) k/uL Chloride 110 H (98-107) mmol/L Glucose 128 H (74-99) mg/dL POC Glucose (mg/dL) (75-99) mg/dL Calcium 8.3 L (8.4-10.2) mg/dL Magnesium 1.4 L (1.6-2.3) mg/dL 09/06/18 09/06/18 09/06/18 Range/Units 12:11 15:59 20:03 RBC (4.30-5.90) m/uL Hgb (13.0-17.5) gm/dL Hct (39.0-53.0) % MCHC (31.0-37.0) g/dL RDW (11.5-15.5) % Lymphocytes # (Manual) (1.0-4.8) k/uL Monocytes # (Manual) (0-1.0) k/uL Metamyelocytes # (Man) (0) k/uL Myelocytes # (Manual) (0) k/uL Chloride (98-107) mmol/L Glucose (74-99) mg/dL POC Glucose (mg/dL) 152 H 160 H 169 H (75-99) mg/dL Calcium (8.4-10.2) mg/dL Magnesium (1.6-2.3) mg/dL Microbiology - Last 24 Hours (Table) 08/31/18 15:15 Blood Culture - Final Blood No Growth after 144 hours Assessment and Plan (1) Diarrhea Narrative/Plan: Acute diarrhea with the patient presenting with 4 days of loose stool, testing for Clostridium difficile negative with a positive lactoferrin. The patient's bowel movements have improved since admission. He is currently reporting to formed bowel movements with no abdominal pain. Unknown etiology, may represent a viral or bacterial gastroenteritis or other etiology. The patient was started on an. Antibiotic therapy with improvement of his symptoms. Current Visit: Yes Status: Acute Code(s): R19.7 - DIARRHEA, UNSPECIFIED SNOMED Code(s): 76784247 (2) ARF (acute renal failure) Current Visit: Yes Status: Acute Code(s): N17.9 - ACUTE KIDNEY FAILURE, UNSPECIFIED SNOMED Code(s): 01149927 (3) Dehydration Current Visit: Yes Status: Acute Code(s): E86.0 - DEHYDRATION SNOMED Code( s): 37448948 Plan: Supportive care Okay for diet Continue Flagyl therapy Monitor stool output Stool studies reviewed Thank you for allowing us to participate in the care of this patient
[2018-09-07] MEDS: metroNIDAZOLE-NS PMX 500 MG in SALINE 1 100ML.BAG IVPB SCH ×2 (05:46→12:13)
[2018-09-07 06:08] LABS: Glucose,Whole Blood 153 mg/dL (75-99)
[2018-09-07] MEDS: INSULIN ASPART 100 UNIT/ML 1 ML 10 ML VIAL SQ SCH ×2 (06:31→12:15)
[2018-09-07 07:26] VITALS: RESP 16
[2018-09-07 08:14] LABS: INR 1.5 (<1.2); Prothrombin Time 15.2 sec (9.0-12.0)
[2018-09-07] MEDS: LINAGLIPTIN 5 MG TABLET PO SCH (08:21)
[2018-09-07] MEDS: METOPROLOL TARTRATE 25 MG TAB PO SCH (08:21)
[2018-09-07] MEDS: PANTOPRAZOLE 40 MG TABLET PO SCH (08:21)
[2018-09-07] MEDS: RIVAROXABAN 15 MG TAB PO SCH (08:21)
[2018-09-07] MEDS: CLOPIDOGREL 75 MG TAB PO SCH (08:22)
[2018-09-07] MEDS: SPIRONOLACTONE 25 MG TAB PO SCH (08:22)
[2018-09-07] MEDS: guaiFENesin 600 MG TABLET.ER PO SCH (08:22)
[2018-09-07] MEDS: LOPERAMIDE 2 MG CAP PO SCH ×2 (08:22→12:12)
[2018-09-07] MEDS: MAGNESIUM OXIDE 400 MG TAB PO SCH (08:22)
[2018-09-07] MEDS: FUROSEMIDE 40 MG TAB PO SCH (08:22)
[2018-09-07] MEDS: CHOLESTYRAMINE (WITH SUGAR) 4 GM PACKET PO SCH (08:23)
[2018-09-07] MEDS: ELTROMBOPAG OLAMINE 50 MG PO SCH (08:23)
[2018-09-07] MEDS: FLUTICASONE 50MCG/SPRAY NASAL 16GM EA NOSTRIL SCH (08:23)
[2018-09-07 08:30] LABS: Calcium 8.7 mg/dL (8.4-10.2); Potassium 4.8 mmol/L (3.5-5.1)
[2018-09-07 11:33] VITALS: BP 117/56; PULSE 69; TEMP 98.3
[2018-09-07 12:04] LABS: Glucose,Whole Blood 184 mg/dL (75-99)
--- NOTE | 2018-09-07 12:46 | PN ---
PROGRESS NOTE Mr. Escudero is doing well. He is in sinus rhythm, resting comfortably, breathing easier. He is going to rehab today. Vital signs are stable. S1, S2 heard normally. Short systolic murmur noted at the base. Lungs are clear. Abdomen and lower extremity exam otherwise is unchanged. MMODL / IJN: [id number] /
--- NOTE | 2018-09-07 13:42 | P.DS ---
Providers Date of admission: 08/31/18 16:54 Expected date of discharge: 09/07/18 Attending physician: Nicko Warren Consults: 08/31/18 16:50 Consult Physician Routine Consulting Provider: Evon Eric Consult Reason/Comments: Acute renal failure Do you want consulting provider notified?: Yes 08/31/18 19:31 Consult Physician Stat Consulting Provider: Syd Yi Consult Reason/Comments: intensive care unit Do you want consulting provider notified?: Yes 08/31/18 21:02 Consult Physician Routine Consulting Provider: Tsering Salinas Consult Reason/Comments: cad Do you want consulting provider notified?: Yes 09/01/18 09:37 Consult Physician Routine Consulting Provider: Cl Rosas Consult Reason/Comments: diurrhea, dehydration, SAI Do you want consulting provider notified?: Yes 09/01/18 13:36 Consult Physician Routine Consulting Provider: Colin Hoover Consult Reason/Comments: depression Do you want consulting provider notified?: Yes 09/02/18 11:14 Consult Physician Stat Consulting Provider: Yaniv Stephens Consult Reason/Comments: clearance to use heparin Do you want consulting provider notified?: Yes Primary care physician: Rolf Winston Hospital Course: Discharge diagnosis Acute kidney injury-due to ATN. secondary to diarrhea, hypertension - resolved Acute diarrhea- C. diff negative 2-resolved. History of coronary artery disease status post post stenting of the circumflex Congestive heart failure with ischemic cardiomyopathy ejection fraction of 30-35 % AICD in place Paroxysmal atrial fibrillation. On anticoagulation Type 2 diabetes mellitus COPD Previous history of ITP Chronic anemia Recent History of Cardiogenic Shock Reason history of intra-aortic ballooning Osteoarthritis of the lumbar spine Hospital course Mr. Escudero is a 73-year-old male with a past medical history of recent non-ST elevation MA status post intra-aortic balloon pump , acute kidney injury, systolic congestive heart failure 17 from [facility] was sent to the ED for profuse watery diarrhea. At the time of admission patient had acute kidney injury with creatinine of 4.5 and also lactic acidosis with poor outcome. The patient was given IV fluids and stool was sent to C. diff. C. diff has been negative 2. Cardiology, GI have been consulted and following the patient. The patient has been in the ICU for the last 3 days. His SAI is slowly resolving but due to his IV fluids and his systolic heart failure patient developed interstitial prominence and chest x-rays confirmed it. Patient was seen by pulmonary, cardiology and gastroenterology. On 09/06/18 - patient is lying in bed appears to be no acute distress. Patient states that his feeling much better. Denies having anymore diarrhea. He states that his appetite is picking up slowly. 09/07/2018 Patient is sitting on the chair comfortably. Tolerating oral diet. Stool is more formed at this time. Patient is being continued on antibiotics for a total of 10 days. Continue with Cipro and Flagyl for 3 more days.\ Patient is being discharged to rehab today. Discharge plan was discussed with the patient in detail. Physical examination Gen. examination-obese male sitting up in a chair by the bedside. Awake alert and oriented 3. No acute distress. HEENT-normocephalic atraumatic. No pallor no icterus Neck - no JVD no thyromegaly Cardiovascular - irregularly irregular. S1-S2 heard Lungs - bilateral breath sounds are diminished at the lower lung bases. Few crackles at the right lower lung base GI-abdomen is soft nontender. Organomegaly difficult to appreciate due to huge body habitus. Bowel sounds are positive. Extremities-no clubbing no cyanosis no edema. 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 No focaldeficits. Psychiatric - appropriate mood and affect Vital Signs 09/07/18 09/07/18 07:20 11:31 Temperature 98.1 F 98.3 F Pulse Rate [ 68 69 Pulse Oximetery ] Respiratory 16 16 Rate Blood Pressure 105/58 117/56 [Left Arm] O2 Sat by Pulse 93 L 91 L Oximetry Total time taken greater than 35 minutes including 18 minutes for counseling and coordination of care. Patient Condition at Discharge: Serious Plan - Discharge Summary Discharge Rx Participant: Yes New Discharge Prescriptions: New Clopidogrel [Plavix] 75 mg PO DAILY #30 tab Darbepoetin Bret [Aranesp] 40 mcg SQ Q7D #4 syringe Furosemide [Lasix] 40 mg PO DAILY #30 tab Losartan [Cozaar] 25 mg PO HS #30 tab Metoprolol Tartrate [Lopressor] 25 mg PO BID #60 tab Rivaroxaban [Xarelto] 15 mg PO DAILY #30 tab Spironolactone [Aldactone] 12.5 mg PO DAILY #30 tab Loperamide [Imodium] 2 mg PO QID PRN #15 cap PRN Reason: Diarrhea Pantoprazole [Protonix] 40 mg PO DAILY #30 tablet. Ciprofloxacin HCl [Cipro] 500 mg PO Q12H 3 Days #6 tab metroNIDAZOLE [Flagyl] 500 mg PO Q8HR #3 tab Continue Atorvastatin [Lipitor] 40 mg PO HS Nitroglycerin Sl Tabs [Nitrostat] 0.4 mg SUBLINGUAL Q5M PRN PRN Reason: CHEST PAIN Eltrombopag Olamine [Promacta] 50 mg PO DIRECTED Ipratropium-Albuterol Nebulize [Duoneb 0.5 mg-3 mg/3 ml Soln] 3 ml INHALATION RT-BID ampul.neb Acetaminophen Tab [Tylenol] 650 mg PO Q6H PRN PRN Reason: Pain Insulin Aspart [NovoLOG (formulary)] See Protocol SQ ACHS Phenylephrine HCl [Sudafed PE] 10 mg PO BID Menthol [Biofreeze] 1 applic TOPICAL TID PRN PRN Reason: Pain Saxagliptin HCl [Onglyza] 5 mg PO DAILY Melatonin 3 mg PO HS Magnesium Oxide 400 mg PO HS Fluticasone Nasal [place] [Flonase Nasal [place]] 2 spr EA NOSTRIL DAILY Discontinued Aspirin 81 mg PO HS Carvedilol [Coreg] 3.125 mg PO BID-W/MEALS tab Furosemide [Lasix] 40 mg PO BID@0900,1600 tab Lisinopril [Zestril] 2.5 mg PO DAILY tab Sodium Bicarbonate Tab 650 mg PO DAILY tab Spironolactone [Aldactone] 25 mg PO DAILY tab Ticagrelor [Brilinta] 90 mg PO BID tab Promethazine Solution 12.5 mg IM Q8H PRN PRN Reason: Nausea Discharge Medication List Atorvastatin [Lipitor] 40 mg PO HS 04/22/16 [History] Eltrombopag Olamine [Promacta] 50 mg PO DIRECTED 10/30/17 [History] Nitroglycerin Sl Tabs [Nitrostat] 0.4 mg SUBLINGUAL Q5M PRN 10/30/17 [History] Ipratropium-Albuterol Nebulize [Duoneb 0.5 mg-3 mg/3 ml Soln] 3 ml INHALATION RT -BID ampul.neb 08/23/18 [Rx] Acetaminophen Tab [Tylenol] 650 mg PO Q6H PRN 08/31/18 [History] Fluticasone Nasal [place] [Flonase Nasal [place]] 2 spr EA NOSTRIL DAILY 08/31/18 [ History] Insulin Aspart [NovoLOG (formulary)] See Protocol SQ ACHS 08/31/18 [History] Magnesium Oxide 400 mg PO HS 08/31/18 [History] Melatonin 3 mg PO HS 08/31/18 [History] Menthol [Biofreeze] 1 applic TOPICAL TID PRN 08/31/18 [History] Phenylephrine HCl [Sudafed PE] 10 mg PO BID 08/31/18 [History] Saxagliptin HCl [Onglyza] 5 mg PO DAILY 08/31/18 [History] Ciprofloxacin HCl [Cipro] 500 mg PO Q12H 3 Days #6 tab 09/07/18 [Rx] Clopidogrel [Plavix] 75 mg PO DAILY #30 tab 09/07/18 [Rx] Darbepoetin Bret [Aranesp] 40 mcg SQ Q7D #4 syringe 09/07/18 [Rx] Furosemide [Lasix] 40 mg PO DAILY #30 tab 09/07/18 [Rx] Loperamide [Imodium] 2 mg PO QID PRN #15 cap 09/07/18 [Rx] Losartan [Cozaar] 25 mg PO HS #30 tab 09/07/18 [Rx] Metoprolol Tartrate [Lopressor] 25 mg PO BID #60 tab 09/07/18 [Rx] Pantoprazole [Protonix] 40 mg PO DAILY #30 tablet. 09/07/18 [Rx] Rivaroxaban [Xarelto] 15 mg PO DAILY #30 tab 09/07/18 [Rx] Spironolactone [Aldactone] 12.5 mg PO DAILY #30 tab 09/07/18 [Rx] metroNIDAZOLE [Flagyl] 500 mg PO Q8HR #3 tab 09/07/18 [Rx] Follow up Appointment(s)/Referral(s): Rolf Winston MD [Primary Care Provider] - 1-2 days Activity/Diet/Wound Care/Special Instructions: [place] Discharge Disposition: TRANSFER TO SNF/ECF
[2018-09-07] MEDS ORDERED: metroNIDAZOLE 500 MG TAB PO SCH (18:00)
--- NOTE | 2018-09-07 22:10 | PN ---
PROGRESS NOTE The patient is seen this morning for followup for acute kidney injury. He is currently comfortable. He denies any significant complaints. He will be discharged today. EXAMINATION: This morning blood pressure was 117/56, heart rate 69 per minute. Patient is afebrile. Examination of the heart S1, S2. Examination of lungs bilateral breath sounds are heard. Abdomen is soft, nontender. Examination of lower extremities shows no significant edema. BOX TOE CUTTER exam is grossly intact. LABS: Reveal sodium of 145, potassium 4.8, BUN 20, serum creatinine 1.23. ASSESSMENT: 1. Acute kidney injury, mainly prerenal and improved with IV fluids. 2. Intravascular volume depletion, currently resolved. 3. Metabolic acidosis secondary to renal failure, maintained on sodium bicarb. 4. Cardiomyopathy, ejection fraction 35-40 percent. 5. CKD stage 3 secondary to diabetic kidney disease. 6. Coronary artery disease status post coronary stent, July of 2018. PLAN: Patient can be discharged. He will need follow up as outpatient in about 2-3 weeks. MMODL / IJN: [id number] /
== END 2018-09-07 15:28 | DRG 682 ==
LOC: EC 14:57 → 2SICU 16:54 → 3SCARD 09-06 06:16
PROVIDERS: ADMIT Hospitalist; ATTEND Hospitalist
PROC: 02HV33Z Insertion of Infusion Device into Superior Vena Cava, Percutaneous Approach (ICD-10-PCS; principal; 2018-08-31)
PROC: 05HM33Z Insertion of Infusion Device into Right Internal Jugular Vein, Percutaneous Approach (ICD-10-PCS; 2018-09-02)
DX: N17.0 Acute kidney failure with tubular necrosis (principal); R57.1 Hypovolemic shock; A09 Infectious gastroenteritis and colitis, unspecified; D69.3 Immune thrombocytopenic purpura; E87.2 Acidosis; I13.0 Hypertensive heart and chronic kidney disease with heart failure and stage 1 through stage 4 chronic kidney disease, or unspecified chronic kidney disease; I50.22 Chronic systolic (congestive) heart failure; D63.1 Anemia in chronic kidney disease; D72.821 Monocytosis (symptomatic); E11.21 Type 2 diabetes mellitus with diabetic nephropathy; E11.22 Type 2 diabetes mellitus with diabetic chronic kidney disease; E66.9 Obesity, unspecified; E83.42 Hypomagnesemia; E86.0 Dehydration; F32.9 Major depressive disorder, single episode, unspecified; I25.10 Atherosclerotic heart disease of native coronary artery without angina pectoris; I25.2 Old myocardial infarction; I25.5 Ischemic cardiomyopathy; I48.0 Paroxysmal atrial fibrillation; J44.9 Chronic obstructive pulmonary disease, unspecified; K57.30 Diverticulosis of large intestine without perforation or abscess without bleeding; M19.91 Primary osteoarthritis, unspecified site; M47.816 Spondylosis without myelopathy or radiculopathy, lumbar region; N18.3 Chronic kidney disease, stage 3 (moderate); Z79.01 Long term (current) use of anticoagulants; Z79.02 Long term (current) use of antithrombotics/antiplatelets; Z79.84 Long term (current) use of oral hypoglycemic drugs; Z79.899 Other long term (current) drug therapy; Z82.49 Family history of ischemic heart disease and other diseases of the circulatory system; Z85.46 Personal history of malignant neoplasm of prostate; Z86.79 Personal history of other diseases of the circulatory system; Z87.891 Personal history of nicotine dependence; Z92.3 Personal history of irradiation; Z95.810 Presence of automatic (implantable) cardiac defibrillator; Z95.5 Presence of coronary angioplasty implant and graft; Z87.01 Personal history of pneumonia (recurrent)
CPT/HCPCS: 36415; 51702; 71045; 71046; 74176; 80048; 80053; 81001; 82150; 82272; 82550; 82553; 82728; 83036; 83540; 83550; 83605; 83630; 83690; 83735; 84100; 84484; 85025; 85027; 85610; 85730; 87040; 87045; 87046; 87324; 87328; 87329; 93308; 96361; 96365; 96368; 96375; 99291

== ENCOUNTER → 2019-02-15 | Outpatient (CLI) | payer MEDICARE, BC, OTHER | END | disposition home or self-care (01) | LOC: LABWHC1 11:04 | PROVIDERS: ATTEND Urology | DX: C61 Malignant neoplasm of prostate (principal) | CPT/HCPCS: 36415; 84153 ==

== ENCOUNTER → 2019-02-24 | Outpatient (CLI) | payer MEDICARE, BC, OTHER ==
[2019-02-25 02:12] LABS: Hemoglobin A1C 5.6 % (4.0-6.0)
== END ==
LOC: LABWHC1 14:12
PROVIDERS: ATTEND Nurse Practitioner Family
DX: E11.9 Type 2 diabetes mellitus without complications (principal)
CPT/HCPCS: 36415; 83036

== ENCOUNTER 2019-04-02 21:16 | Inpatient (IN) | payer MEDICARE, BC, OTHER ==
[2019-04-02] MEDS ORDERED: SODIUM CHLORIDE 0.9% 500 ML 500 ML IV STA (21:28)
[2019-04-02 22:30] LABS: Albumin 3.4 g/dL (3.5-5.0); Calcium 7.9 mg/dL (8.4-10.2); Potassium 3.3 mmol/L (3.5-5.1); Total Bilirubin 1.3 mg/dL (0.2-1.3); Total Protein 6.7 g/dL (6.3-8.2)
[2019-04-02 22:32] LABS: INR 1.4 (<1.2); Partial Thromboplastin Time 32.9 sec (22.0-30.0)
[2019-04-02 22:39] LABS: Anisocytosis Moderate; HCT 27.3 % (39.0-53.0); HGB 8.5 gm/dL (13.0-17.5); Hypochromasia Moderate; MCH 27.1 pg (25.0-35.0); MCV 87.5 fL (80.0-100.0); Mean Platelet Volume 8.7; Microcytosis Slight; Platelet Count 48 k/uL (150-450); Poikilocytosis Moderate; RBC 3.12 m/uL (4.30-5.90)
[2019-04-02 22:40] LABS: Magnesium 0.6 mg/dL (1.6-2.3)
[2019-04-02] MEDS ORDERED: SODIUM CHLORIDE 0.9% 1,000 ML IV ONE (22:41)
[2019-04-02] MEDS ORDERED: VANCOMYCIN IV PER PHARMACY 1 EACH MISC MISCELLANE PRN (23:07)
[2019-04-02] MEDS ORDERED: PIPERACILLIN-TAZOBACTAM 3.375 GM in SODIUM CHLORIDE 0.9% 100 ML IVPB STA (23:07)
[2019-04-02] MEDS ORDERED: VANCOMYCIN 1,500 MG in SODIUM CHLORIDE 0.9% 250 ML IVPB SCH (23:15)
[2019-04-02 23:32] LABS: Band Neutrophils % 3 %; Myelocytes % 2 %; Neutrophils % (M) 29 %; Nucleated Red Blood Cells 2 /100 WBC (0-0); Total Cells Counted 200
[2019-04-02 23:34] LABS: Lymphocytes # (M) 27.51 k/uL (1.0-4.8); Monocytes # (M) 33.93 k/uL (0-1.0); Myelocytes # (M) 1.83 k/uL (0); WBC 91.7 k/uL (3.8-10.6)
[2019-04-02] MEDS: MAGNESIUM SULFATE-D5W PMX 1 GM in DEXTROSE/WATER 1 100ML.BAG IVPB SCH (23:34)
[2019-04-02] MEDS: SODIUM CHLORIDE 0.9% 1,000 ML IV SCH (23:34)
[2019-04-02 23:35] LABS: Polychromasia Present
[2019-04-02] MEDS: POTASSIUM CHLORIDE 10 MEQ in WATER FOR INJECTION 1 100ML.BAG IVPB SCH (23:35)
--- NOTE | 2019-04-02 23:59 | XR ---
EXAM: XR Chest, 2 Views CLINICAL HISTORY: ITS.REASON XR Reason: Weakness TECHNIQUE: Frontal and lateral views of the chest. COMPARISON: Chest radiography 09/03/18 FINDINGS: Lungs: No consolidation. Pleural space: No pleural effusion or pneumothorax. Heart: Enlarged cardiac silhouette is concerning for cardiomegaly. Mediastinum: Unremarkable. Bones/joints: Degenerative changes of spine. Vasculature: Atherosclerotic calcifications of the ectatic thoracic aortic arch. Tubes, lines and devices: 2-lead pacer/before meals with intact wires. IMPRESSION: No acute cardiopulmonary disease.
[2019-04-03] MEDS ORDERED: SODIUM CHLORIDE 0.9% 1,000 ML IV ONE (00:13)
[2019-04-03] MEDS ORDERED: ACETAMINOPHEN TAB 325 MG TAB PO PRN (00:14)
[2019-04-03] MEDS ORDERED: NALOXONE 0.4 MG/ML 1 ML VIAL IV PRN (00:14)
--- NOTE | 2019-04-03 00:21 | ED ---
General Adult HPI - General Chief complaint: Weakness Stated complaint: Weakness Time Seen by Provider: 04/02/19 21:28 Source: patient, family, RN notes reviewed, old records reviewed - History of Present Illness Initial comments: 74-year-old male presenting with generalized weakness. Patient had recent admission at [facility]. He was found to be anemic and did require several blood transfusions. He has history of congestive heart failure status post AICD. History of chronic anemia. He is accompanied by his daughter who is able to give the majority of the history. She states was discharged one week ago and has failed to improve at home. No reported fever. No vomiting. No pain complaints. Patient has had diarrhea, according to patient's daughter he had several C. difficile test performed at [facility]. - Related Data Home Medications Medication Instructions Recorded Confirmed Atorvastatin [Lipitor] 40 mg PO HS 04/22/16 04/02/19 Eltrombopag Olamine [Promacta] 50 mg PO HS 10/30/17 04/02/19 Acetaminophen Tab [Tylenol Tab] 500 mg PO BID@1200,2100 04/02/19 04/02/19 Calcium Polycarbophil [Fiber-Lax] 625 mg PO AC-LUNCH 04/02/19 04/02/19 Cholecalciferol [Vitamin D3 (25 1,000 unit PO DAILY 04/02/19 04/02/19 Mcg = 1000 Iu)] Citalopram Hydrobromide [CeleXA] 20 mg PO DAILY 04/02/19 04/02/19 Potassium Chloride ER [K-Dur 10] 10 meq PO AC-LUNCH 04/02/19 04/02/19 Saxagliptin HCl [Onglyza] 2.5 mg PO DAILY 04/02/19 04/02/19 Torsemide [Demadex] 20 mg PO DAILY 04/02/19 04/02/19 Previous Rx's Medication Instructions Recorded Clopidogrel [Plavix] 75 mg PO DAILY #30 tab 09/07/18 Allergies Allergy/AdvReac Type Severity Reaction Status Date / Time No Known Allergies Allergy Verified 04/02/19 21:35 Review of Systems ROS Statement: Those systems with pertinent positive or pertinent negative responses have been documented in the HPI. ROS Other: All systems not noted in ROS Statement are negative. Past Medical History Past Medical History: Blood Disorder, Coronary Artery Disease (CAD), Cancer, Chest Pain / Angina, Myocardial Infarction (AR), Musculoskeletal Disorder Additional Past Medical History / Comment(s): Coronary artery disease, previous non-ST segment elevation myocardial infarction, recent hospitalization for cardiogenic shock, stenting of the circumflex artery, systolic heart failure with ejection fraction of 30-35%, prostate cancer with previous radiation therapy that he completed in March 2015, history of ITP, history of AICD placement, history of ventricular tachycardia, diabetes mellitus, ITP Last Myocardial Infarction Date:: 06/16/2015 History of Any Multi-Drug Resistant Organisms: None Reported Past Surgical History: AICD, Appendectomy, Cholecystectomy, Heart Catheterization With Stent, Pacemaker Additional Past Surgical History / Comment(s): Stent to the LAD 06/16/2015. CARDIOVERSION; AICD 04/26/16, [employer]. Defibrillator placement, insertion and removal of a intra-aortic balloon pump, cardiac catheterization and stenting of the circumflex in March 2018 Past Anesthesia/Blood Transfusion Reactions: No Reported Reaction Date of Last Stent Placement:: 06/16/2015 Type of Cardiac Device: AICD Device Placement Date:: 04/26/16 Past Psychological History: No Psychological Hx Reported Smoking Status: Former smoker Past Alcohol Use History: Rare Past Drug Use History: None Reported - Past Family History Mother Family Medical History: CVA/TIA, Hypertension Father Family Medical History: No Reported History General Exam General appearance: alert, in no apparent distress Head exam: Present: atraumatic, normocephalic Eye exam: Present: normal appearance, PERRL ENT exam: Present: mucous membranes dry Neck exam: Present: normal inspection. Absent: tenderness, meningismus Respiratory exam: Present: normal lung sounds bilaterally. Absent: respiratory distress, wheezes, rhonchi Cardiovascular Exam: Present: regular rate, normal rhythm GI/Abdominal exam: Present: soft. Absent: distended, tenderness, guarding Rectal exam: Present: normal inspection, other (No decubitus ulcer.) Extremities exam: Present: normal inspection, normal capillary refill. Absent: pedal edema Neurological exam: Present: alert. Absent: motor sensory deficit Skin exam: Present: warm, dry, pallor Course Vital Signs 04/02/19 21:17 Temperature 97.8 F Pulse Rate 104 H Respiratory 22 Rate Blood Pressure 76/44 O2 Sat by Pulse 97 Oximetry EKG Findings - EKG Comments: EKG Findings:: EKG: Normal sinus rhythm, conduction delay with widening of the QRS, no ST segment elevation. Rate of 86, MD interval 188, QRS duration 132, QTC 514. Medical Decision Making - Medical Decision Making 74-year-old male presenting with generalized weakness, and diarrhea. Patient is pale, initial blood pressure 76 systolic. He has brown stool, no melena or bright red rectal bleeding. He is moving all extremities symmetrically. He will answer simple questions but majority of the history is obtained from his daughter who is at bedside. Recent admission with anemia, dehydration, hypomagnesemia at [facility]. Laboratory studies obtained today, he has a significant elevated white blood cell count at 93.5, this is new for this patient, no history of leukemia. This may be leukemoid reaction, versus sepsis. Hemoglobin 8.5. Patient has potassium 3.3, this is replaced. Lactic of 5.3 treated with IV hydration. Magnesium is very low 0.6, given 2 g of IV magnesium. He has creatinine of 1.73. Minimal troponin elevation. Chest x-ray with negative for focal pneumonia. Urinalysis pending. C. difficile toxin pending. Patient is initiated on broad-spectrum antibiotics including Zosyn and vancomycin. He is given continuous IV hydration. Electrolytes are replaced. He will be admitted for further evaluation treatment. - Lab Data Result diagrams: 04/02/19 21:50 04/02/19 21:50 Lab Results 04/02/19 04/02/19 04/02/19 Range/Units 21:50 21:50 21:50 WBC 91.7 H* (3.8-10.6) k/uL RBC 3.12 L (4.30-5.90) m/uL Hgb 8.5 L (13.0-17.5) gm/dL Hct 27.3 L (39.0-53.0) % MCV 87.5 (80.0-100.0) fL MCH 27.1 (25.0-35.0) pg MCHC 31.0 (31.0-37.0) g/dL RDW 23.0 H (11.5-15.5) % Plt Count 48 L (150-450) k/uL Neutrophils % (Manual) 29 % Band Neutrophils % 3 % Lymphocytes % (Manual) 30 % Monocytes % (Manual) 37 % Myelocytes % 2 % Neutrophils # (Manual) 29.30 H (1.3-7.7) k/uL Lymphocytes # (Manual) 27.51 H (1.0-4.8) k/uL Monocytes # (Manual) 33.93 H (0-1.0) k/uL Myelocytes # (Manual) 1.83 H (0) k/uL Nucleated RBCs 2 H (0-0) /100 WBC Manual Slide Review Performed Polychromasia Present Hypochromasia Moderate Poikilocytosis Moderate Anisocytosis Moderate Microcytosis Slight PT (9.0-12.0) sec INR (<1.2) APTT (22.0-30.0) sec Sodium 138 (137-145) mmol/L Potassium 3.3 L (3.5-5.1) mmol/L Chloride 101 (98-107) mmol/L Carbon Dioxide 20 L (22-30) mmol/L Anion Gap 17 mmol/L BUN 20 (9-20) mg/dL Creatinine 1.73 H (0.66-1.25) mg/dL Est GFR (CKD-EPI)AfAm 44 (>60 ml/min/1.73 sqM) Est GFR (CKD-EPI)NonAf 38 (>60 ml/min/1.73 sqM) Glucose 147 H (74-99) mg/dL Plasma Lactic Acid [place] 5.3 H* (0.7-2.0) mmol/L Calcium 7.9 L (8.4-10.2) mg/dL Magnesium 0.6 L* (1.6-2.3) mg/dL Total Bilirubin 1.3 (0.2-1.3) mg/dL AST 59 (17-59) U/L ALT 10 L (21-72) U/L Alkaline Phosphatase 125 (38-126) U/L Troponin I (0.000-0.034) ng/mL Total Protein 6.7 (6.3-8.2) g/dL Albumin 3.4 L (3.5-5.0) g/dL Blood Type Blood Type Recheck Antibody Screen Spec Expiration Date 04/02/19 04/02/19 04/02/19 Range/Units 21:50 21:50 21:50 WBC (3.8-10.6) k/uL RBC (4.30-5.90) m/uL Hgb (13.0-17.5) gm/dL Hct (39.0-53.0) % MCV (80.0-100.0) fL MCH (25.0-35.0) pg MCHC (31.0-37.0) g/dL RDW (11.5-15.5) % Plt Count (150-450) k/uL Neutrophils % (Manual) % Band Neutrophils % % Lymphocytes % (Manual) % Monocytes % (Manual) % Myelocytes % % Neutrophils # (Manual) (1.3-7.7) k/uL Lymphocytes # (Manual) (1.0-4.8) k/uL Monocytes # (Manual) (0-1.0) k/uL Myelocytes # (Manual) (0) k/uL Nucleated RBCs (0-0) /100 WBC Manual Slide Review Polychromasia Hypochromasia Poikilocytosis Anisocytosis Microcytosis PT 14.0 H (9.0-12.0) sec INR 1.4 H (<1.2) APTT 32.9 H (22.0-30.0) sec Sodium (137-145) mmol/L Potassium (3.5-5.1) mmol/L Chloride (98-107) mmol/L Carbon Dioxide (22-30) mmol/L Anion Gap mmol/L BUN (9-20) mg/dL Creatinine (0.66-1.25) mg/dL Est GFR (CKD-EPI)AfAm (>60 ml/min/1.73 sqM) Est GFR (CKD-EPI)NonAf (>60 ml/min/1.73 sqM) Glucose (74-99) mg/dL Plasma Lactic Acid [place] (0.7-2.0) mmol/L Calcium (8.4-10.2) mg/dL Magnesium (1.6-2.3) mg/dL Total Bilirubin (0.2-1.3) mg/dL AST (17-59) U/L ALT (21-72) U/L Alkaline Phosphatase (38-126) U/L Troponin I 0.041 H* (0.000-0.034) ng/mL Total Protein (6.3-8.2) g/dL Albumin (3.5-5.0) g/dL Blood Type B Negative Blood Type Recheck No Antibody Screen NEGATIVE Spec Expiration Date 04/05/2019 - 8349 Critical Care Time Critical Care Time: Yes Total Critical Care Time: 35 Disposition Clinical Impression: Sepsis, Hypomagnesemia, Lactic acidosis, AICD (automatic cardioverter/defibrillator) present, Diarrhea, Anemia Disposition: ADMITTED IP TO THIS [facility] Condition: Serious Is patient prescribed a controlled substance at d/c from ED?: No Referrals: Ford Amin MD [Primary Care Provider] - 1-2 days Decision to Admit Reason: Admit from EC Decision Date: 04/03/19 Decision Time: 00:37
[2019-04-03] MEDS: POTASSIUM CHLORIDE 10 MEQ in WATER FOR INJECTION 1 100ML.BAG IVPB SCH ×4 (01:20→05:31)
[2019-04-03] MEDS: MAGNESIUM SULFATE-D5W PMX 1 GM in DEXTROSE/WATER 1 100ML.BAG IVPB SCH ×6 (01:38→22:17)
[2019-04-03 02:55] LABS: Glucose,Whole Blood 146 mg/dL (75-99)
[2019-04-03 03:32] VITALS: BMI 26.2
[2019-04-03 05:31] LABS: Anisocytosis Moderate; HCT 23.6 % (39.0-53.0); HGB 7.2 gm/dL (13.0-17.5); Hypochromasia Marked; MCH 27.2 pg (25.0-35.0); MCHC 30.7 g/dL (31.0-37.0); MCV 88.7 fL (80.0-100.0); Macrocytosis Slight; Mean Platelet Volume 14.6; Microcytosis Slight; Poikilocytosis Slight; RBC 2.66 m/uL (4.30-5.90); RDW 23.2 % (11.5-15.5)
[2019-04-03 05:32] LABS: Platelet Count 53 k/uL (150-450)
[2019-04-03 05:41] LABS: Calcium 7.3 mg/dL (8.4-10.2); Magnesium 1.1 mg/dL (1.6-2.3); Phosphorus 3.1 mg/dL (2.5-4.5); Potassium 3.5 mmol/L (3.5-5.1)
[2019-04-03 07:00] LABS: Band Neutrophils % 5 %; Large Platelets Present; Lymphocytes # (M) 16.97 k/uL (1.0-4.8); Monocytes # (M) 34.64 k/uL (0-1.0); Neutrophils % (M) 24 %; Nucleated Red Blood Cells 2 /100 WBC (0-0); Total Cells Counted 200; WBC 70.7 k/uL (3.8-10.6)
[2019-04-03 07:01] LABS: Polychromasia Present
--- NOTE | 2019-04-03 07:28 | XR ---
EXAMINATION TYPE: XR chest 1V portable DATE OF EXAM: 04/03/2019 COMPARISON: 04/02/2019 HISTORY: Shortness of breath TECHNIQUE: Single frontal view of the chest is obtained. FINDINGS: There is left lower lobe infiltrate and small effusion. Bilateral interstitial process see n. Cardiomegaly and cardiac device. No pneumothorax. Arthropathy of the shoulders. IMPRESSION: 1. Left lower lobe infiltrate and small effusion. Correlate for CHF. Otherwise consider pneumonia
[2019-04-03] MEDS: PIPERACILLIN-TAZOBACTAM 3.375 GM in SODIUM CHLORIDE 0.9% 100 ML IVPB SCH ×3 (08:38→23:09)
[2019-04-03] MEDS: POTASSIUM CHLORIDE ER 20 MEQ TAB.ER PO SCH ×2 (08:38→09:46)
[2019-04-03] MEDS: PANTOPRAZOLE 40 MG/10 ML VIAL IV SCH (08:39)
[2019-04-03] MEDS: CHERRY FLAVOR 60 ML BOTTLE PO SCH ×3 (12:13→23:07)
[2019-04-03] MEDS: VANCOMYCIN ORAL SOLUTION 250 MG/5 ML BOTTLE PO SCH ×3 (12:13→23:07)
--- NOTE | 2019-04-03 12:18 | P.HPIM ---
History of Present Illness This is a pleasant 74 years old male with past medical history of coronary artery disease status post stent, dementia, previous cardiogenic shock, chronic systolic heart failure with ejection fraction 30-35%, status post AICD placement prostate cancer status post radiotherapy 2014, diabetes mellitus. Patient was recently discharged from [facility] where he received several units of blood transfusion for his anemia. But he didn't get scalloped area as per family. Also was complaining of from diarrhea for to 3 weeks, currently he is having 2-3 bowel movements per day compared to 6-7 few weeks ago. Denies abdominal pain or chest pain or dyspnea. However he feels generally weak and the cement reason he came to the hospital. On admission his been hypotensive with blood pressure 76/44, heart rate 90-104, saturating 97 on room air, afebrile. Currently blood pressure 101/49, heart rate 18 and he is saturating 96% on 2 L oxygen via NC. Labs showing markedly elevated WBC 91 and 70. Hemoglobin 7.2, platelets 53. INR 1.4. Creatinine is elevated at 1.7 and 1.8, previously was 1.2 on 08/2018. Lactic acid elevated 5.3, coming down after 3 L of normal saline to 2.3. Troponin is elevated at 0.04. EKG showing normal sinus rhythm at [address]-T changes. Patient was given 2 L of normal saline and started on normal saline at 75. Per hour. Also was started on Zosyn and started on oral vancomycin. Infectious disease were consulted and patient was admitted to the ICU for further management Review of Systems CONSTITUTIONAL: No fever, no malaise, no fatigue. HEENT: No recent visual problems or hearing problems. Denied any sore throat. CARDIOVASCULAR: No orthopnea, PND, no palpitations, no syncope. PULMONARY: No shortness of breath, no cough, no hemoptysis. GASTROINTESTINAL: No diarrhea, no nausea, no vomiting, no abdominal pain. Normoactive bowel sounds. NEUROLOGICAL: No headaches, no weakness, no numbness. HEMATOLOGICAL: Denies any bleeding or petechiae. GENITOURINARY: Denies any burning micturition, frequency, or urgency. MUSCULOSKELETAL/RHEUMATOLOGICAL: Denies any joint pain, swelling, or any muscle pain. ENDOCRINE: Denies any polyuria or polydipsia. Past Medical History Past Medical History: Blood Disorder, Coronary Artery Disease (CAD), Cancer, Chest Pain / Angina, Dementia, Myocardial Infarction ([place]), Musculoskeletal Disorder Additional Past Medical History / Comment(s): Coronary artery disease, previous non-ST segment elevation myocardial infarction, recent hospitalization for cardiogenic shock, stenting of the circumflex artery, systolic heart failure with ejection fraction of 30-35%, prostate cancer with previous radiation therapy that he completed in March 2015, history of ITP, history of AICD placement, history of ventricular tachycardia, diabetes mellitus, ITP Last Myocardial Infarction Date:: 06/16/2015 History of Any Multi-Drug Resistant Organisms: None Reported Past Surgical History: AICD, Appendectomy, Cholecystectomy, Heart Catheterization With Stent, Pacemaker Additional Past Surgical History / Comment(s): Stent to the LAD 06/16/2015. CARD IOVERSION; AICD 04/26/16, [employer]. Defibrillator placement, insertion and removal of a intra-aortic balloon pump, cardiac catheterization and stenting of the circumflex in March 2018 Past Anesthesia/Blood Transfusion Reactions: No Reported Reaction Date of Last Stent Placement:: 06/16/2015 Type of Cardiac Device: AICD Device Placement Date:: 04/26/16 Past Psychological History: No Psychological Hx Reported Smoking Status: Former smoker Past Alcohol Use History: Rare Additional Past Alcohol Use History / Comment(s): QUIT SMOKING 1974 EST, UNSURE # OF YEARS. Past Drug Use History: None Reported - Past Family History Mother Family Medical History: CVA/TIA, Hypertension Father Family Medical History: No Reported History Medications and Allergies Home Medications Medication Instructions Recorded Confirmed Type Atorvastatin [Lipitor] 40 mg PO HS 04/22/16 04/02/19 History Eltrombopag Olamine [Promacta] 50 mg PO HS 10/30/17 04/02/19 History Clopidogrel [Plavix] 75 mg PO DAILY #30 tab 09/07/18 04/02/19 Rx Acetaminophen Tab [Tylenol Tab] 500 mg PO BID@1200,2100 04/02/19 04/02/19 History Calcium Polycarbophil [Fiber-Lax] 625 mg PO AC-LUNCH 04/02/19 04/02/19 History Cholecalciferol [Vitamin D3 (25 1,000 unit PO DAILY 04/02/19 04/02/19 History Mcg = 1000 Iu)] Citalopram Hydrobromide [CeleXA] 20 mg PO DAILY 04/02/19 04/02/19 History Potassium Chloride ER [K-Dur 10] 10 meq PO AC-LUNCH 04/02/19 04/02/19 History Saxagliptin HCl [Onglyza] 2.5 mg PO DAILY 04/02/19 04/02/19 History Torsemide [Demadex] 20 mg PO DAILY 04/02/19 04/02/19 History Allergies Allergy/AdvReac Type Severity Reaction Status Date / Time No Known Allergies Allergy Verified 04/02/19 21:35 Physical Exam Vitals: Vital Signs Temp Pulse Resp BP Pulse Ox 04/03/19 11:00 80 16 101/49 96 04/03/19 10:30 81 17 89/43 96 04/03/19 10:00 79 18 79/60 96 04/03/19 09:30 92 28 H 99/65 94 L 04/03/19 09:00 82 26 H 98/46 96 04/03/19 08:30 78 27 H 99/53 96 04/03/19 08:00 98.9 F 78 26 H 96/46 94 L 04/03/19 07:30 84 12 103/45 95 04/03/19 07:00 80 25 H 95/46 95 04/03/19 06:30 75 26 H 96/48 95 04/03/19 06:00 76 20 94/49 96 04/03/19 05:30 73 31 H 96/44 95 04/03/19 05:00 71 21 73/36 96 04/03/19 04:30 98.0 F 73 21 98/50 95 04/03/19 04:00 75 23 99/48 95 04/03/19 03:30 79 22 110/53 96 04/03/19 03:00 98.2 F 76 14 104/56 97 04/03/19 02:08 98.6 F 78 16 102/51 98 04/03/19 02:00 77 12 103/47 100 04/03/19 01:00 98.8 F 77 21 99/47 96 04/03/19 00:33 70 16 106/50 96 04/03/19 00:00 79 23 100/42 98 04/02/19 23:00 90 27 H 105/54 95 04/02/19 21:17 97.8 F 104 H 22 76/44 97 Intake and Output 04/02/19 04/03/19 04/03/19 22:59 06:59 14:59 Intake Total 790 950 Output Total 300 Balance 790 650 Intake: IV 700 550 Magnesium Sulfate-D5w Pmx 300 1 gm In Dextrose/Water 1 100ml.bag @ 100 mls/hr IVPB Q1H JESS Rx#: [id number] Piperacillin-Tazobactam 3 100 .375 gm In Sodium Chloride 0.9% 100 ml @ 25 mls/hr IVPB Q8H JESS Rx#: [id number] Potassium Chloride 10 meq 400 In Water For Injection 1 100ml.bag @ 100 mls/hr IVPB Q1HR JESS Rx#: [id number] Sodium Chloride 0.9% 1, 300 150 000 ml @ 75 mls/hr IV . [id number] JESS Rx#:[id number] Oral 90 Tube Feeding 400 Output: Urine 300 Other: Voiding Method Urinal # Voids 1 Weight 83.915 kg -GENERAL: The patient is alert and oriented x3, not in any acute distress. Generally weak and pale HEENT: Pupils are round and equally reacting to light. EOMI. No scleral icterus. No conjunctival pallor. Normocephalic, atraumatic. No pharyngeal erythema. No thyromegaly. CARDIOVASCULAR: S1 and S2 present. No murmurs, rubs, or gallops. PULMONARY: Chest is clear to auscultation, no wheezing or crackles. ABDOMEN: Soft, nontender, nondistended, normoactive bowel sounds. No palpable organomegaly. MUSCULOSKELETAL: No joint swelling or deformity. EXTREMITIES: No cyanosis, clubbing, or pedal edema. NEUROLOGICAL: Gross neurological examination did not reveal any focal deficits. SKIN: No rashes. Results CBC & Chem 7: 04/03/19 04:39 04/03/19 04:39 Labs: Abnormal Lab Results - Last 24 Hours (Table) 04/02/19 04/02/19 04/02/19 Range/Units 21:50 21:50 21:50 WBC 91.7 H* (3.8-10.6) k/uL RBC 3.12 L (4.30-5.90) m/uL Hgb 8.5 L (13.0-17.5) gm/dL Hct 27.3 L (39.0-53.0) % MCHC (31.0-37.0) g/dL RDW 23.0 H (11.5-15.5) % Plt Count 48 L (150-450) k/uL Neutrophils # (Manual) 29.30 H (1.3-7.7) k/uL Lymphocytes # (Manual) 27.51 H (1.0-4.8) k/uL Monocytes # (Manual) 33.93 H (0-1.0) k/uL Myelocytes # (Manual) 1.83 H (0) k/uL Nucleated RBCs 2 H (0-0) /100 WBC PT (9.0-12.0) sec INR (<1.2) APTT (22.0-30.0) sec Potassium 3.3 L (3.5-5.1) mmol/L Carbon Dioxide 20 L (22-30) mmol/L BUN (9-20) mg/dL Creatinine 1.73 H (0.66-1.25) mg/dL Glucose 147 H (74-99) mg/dL POC Glucose (mg/dL) (75-99) mg/dL Plasma Lactic Acid Geovany 5.3 H* (0.7-2.0) mmol/L Calcium 7.9 L (8.4-10.2) mg/dL Magnesium 0.6 L* (1.6-2.3) mg/dL ALT 10 L (21-72) U/L Troponin I (0.000-0.034) ng/mL Albumin 3.4 L (3.5-5.0) g/dL 04/02/19 04/02/19 04/03/19 Range/Units 21:50 21:50 01:55 WBC (3.8-10.6) k/uL RBC (4.30-5.90) m/uL Hgb (13.0-17.5) gm/dL Hct (39.0-53.0) % MCHC (31.0-37.0) g/dL RDW (11.5-15.5) % Plt Count (150-450) k/uL Neutrophils # (Manual) (1.3-7.7) k/uL Lymphocytes # (Manual) (1.0-4.8) k/uL Monocytes # (Manual) (0-1.0) k/uL Myelocytes # (Manual) (0) k/uL Nucleated RBCs (0-0) /100 WBC PT 14.0 H (9.0-12.0) sec INR 1.4 H (<1.2) APTT 32.9 H (22.0-30.0) sec Potassium (3.5-5.1) mmol/L Carbon Dioxide (22-30) mmol/L BUN (9-20) mg/dL Creatinine (0.66-1.25) mg/dL Glucose (74-99) mg/dL POC Glucose (mg/dL) (75-99) mg/dL Plasma Lactic Acid Geovany 2.3 H* (0.7-2.0) mmol/L Calcium (8.4-10.2) mg/dL Magnesium (1.6-2.3) mg/dL ALT (21-72) U/L Troponin I 0.041 H* (0.000-0.034) ng/mL Albumin (3.5-5.0) g/dL 04/03/19 04/03/19 04/03/19 Range/Units 02:43 04:39 04:39 WBC 70.7 H* (3.8-10.6) k/uL RBC 2.66 L (4.30-5.90) m/uL Hgb 7.2 L (13.0-17.5) gm/dL Hct 23.6 L (39.0-53.0) % MCHC 30.7 L (31.0-37.0) g/dL RDW 23.2 H (11.5-15.5) % Plt Count 53 L (150-450) k/uL Neutrophils # (Manual) 20.50 H (1.3-7.7) k/uL Lymphocytes # (Manual) 16.97 H (1.0-4.8) k/uL Monocytes # (Manual) 34.64 H (0-1.0) k/uL Myelocytes # (Manual) (0) k/uL Nucleated RBCs 2 H (0-0) /100 WBC PT (9.0-12.0) sec INR (<1.2) APTT (22.0-30.0) sec Potassium (3.5-5.1) mmol/L Carbon Dioxide (22-30) mmol/L BUN 22 H (9-20) mg/dL Creatinine 1.82 H (0.66-1.25) mg/dL Glucose 119 H (74-99) mg/dL POC Glucose (mg/dL) 146 H (75-99) mg/dL Plasma Lactic Acid Geovany (0.7-2.0) mmol/L Calcium 7.3 L (8.4-10.2) mg/dL Magnesium 1.1 L (1.6-2.3) mg/dL ALT (21-72) U/L Troponin I (0.000-0.034) ng/mL Albumin (3.5-5.0) g/dL Thrombosis Risk Factor Assmnt - Choose All That Apply Any of the Below Risk Factors Present?: No Other Risk Factors: Yes Each Risk Factor Represents 2 Points: Age 61-74 years Other congenital or acquired thrombophilia - If yes, enter type in comment: No Thrombosis Risk Factor Assessment Total Risk Factor Score: 2 Thrombosis Risk Factor Assessment Level: Low Risk Assessment and Plan Assessment: Leukocytosis Severe sepsis and systemic inflammatory response with leukocytosis and tachycardia. Most likely source is the pneumonia. Bicytopenia with anemia and thrombocytopenia Acute kidney injury Elevated lactic acid, improving Elevated troponin Diabetes mellitus Dementia History of coronary artery disease, status post stent Chronic systolic heart failure with ejection affect are 30-35%, status post AICD History of prostate cancer status post radiotherapy 2014 Plan: This is a pleasant 74 years old male who presents with severe sepsis, possible pneumonia versus giant infection versus other. With acute kidney injury and elevated troponin. Continue with antibiotics and IV fluid. Follow-up hemoglobin level ., Follow-up the recommendations of the pulmonary/critical care and infectious disease team. Sent for occult blood in his stool. Consult cardiology for elevated troponin. Labs and medication were reviewed.. Continue same treatment. Continue with symptomatic treatment. Resume home medication. Monitor lytes and vitals. DVT and GI prophylaxis. Further recommendations of the clinical course of the patient DVT prophylaxis: No heparin in view of drop om hemoglobin and history of GI bleed GI Prophylaxis: Protonix Prognosis is guarded
--- NOTE | 2019-04-03 13:03 | P.CNPUL ---
History of Present Illness Consult date: 04/03/19 Chief complaint: Diarrhea, dehydration, volume depletion History of present illness: This is a 74-year-old male patient who came into the emergency department yesterday with hypotension, tachycardia diarrhea and dehydration. The patient was found to have an acute kidney injury with a creatinine was at 1.8 and his previous creatinine from August 2018 was 1.2.. Lactic acidosis which was as high as 5.3 which came down to 2.3 after being given a total of 37 IV fluids. The patient received a total of 2 L normal saline and started on normal saline infusion at 75 mL an hour and no pressors was used. The chest x-ray shows a limited left lower lobe pulmonary infiltration. No eye tach on is quite elevated at 90,000 and it's declining down to 70,000. This patient is known to me. Of taking care of him on previous admission. He is known to have coronary artery disease and he has been involved in a previous non-ST segment elevation myocardial infarction back in 2018. At that time the patient had a complex cardiac catheterization and stenting during which she also required intra-aortic balloon pump insertion. He did well and he was given a stent in his circumflex artery. The balloon was removed and the patient went to rehabilitation. Note that he also has history of congestion heart failure with systolic dysfunction and ejection fraction of 35-40% and he also has history of ITP, AICD in place, diverticulosis, chronic anemia, osteoarthritis and previous history of C. diff. Note that following this admission, the patient was admitted to [facility] for a urine checked infection was discharged from the approximately a week ago after being given IV antibiotics. He was having loose/liquidy stools about 3-4 times a day and obviously this raises the concern for C. diff colitis. I started the patient on a combination of oral vancomycin and IV Zosyn pending further cultures and stool evaluation. Review of Systems Constitutional: Reports fatigue, Reports fever, Reports lethargy, Reports poor appetite, Reports weakness Eyes: denies blurred vision, denies bulging eye, denies decreased vision, denies diplopia Ears: deny: decreased hearing, ear discharge, earache, tinnitus Ears, nose, mouth and throat: Denies headache, Denies sore throat Cardiovascular: Reports decreased exercise tolerance, Reports dyspnea on exertion, Reports shortness of breath Respiratory: Reports dyspnea Gastrointestinal: Reports diarrhea Genitourinary: Reports as per HPI Musculoskeletal: Denies myalgias Musculoskeletal: absent: ankle pain, ankle stiffness, ankle swelling Integumentary: Denies pruritus, Denies rash Neurological: Reports as per HPI, Reports weakness, the patient is quite debilitated. Apparently was able to walk with help of a walker. Endocrine: Reports flushing Hematologic/Lymphatic: Reports as per HPI Allergic/Immunologic: Reports as per HPI Past Medical History Past Medical History: Blood Disorder, Coronary Artery Disease (CAD), Cancer, Chest Pain / Angina, Dementia, Myocardial Infarction ([place]), Musculoskeletal Disorder Additional Past Medical History / Comment(s): Coronary artery disease, previous non-ST segment elevation myocardial infarction, recent hospitalization for cardiogenic shock, stenting of the circumflex artery, systolic heart failure with ejection fraction of 30-35%, prostate cancer with previous radiation therapy that he completed in March 2015, history of ITP, history of AICD placement, history of ventricular tachycardia, diabetes mellitus, ITP, history of C. diff colitis Last Myocardial Infarction Date:: 06/16/2015 History of Any Multi-Drug Resistant Organisms: None Reported Past Surgical History: AICD, Appendectomy, Cholecystectomy, Heart Catheterization With Stent, Pacemaker Additional Past Surgical History / Comment(s): Stent to the LAD 06/16/2015. CARDIOVERSION; AICD 04/26/16, [employer]. Defibrillator placement, insertion and removal of a intra-aortic balloon pump, cardiac catheterization and stenting of the circumflex in March 2018 Past Anesthesia/Blood Transfusion Reactions: No Reported Reaction Date of Last Stent Placement:: 06/16/2015 Type of Cardiac Device: AICD Device Placement Date:: 04/26/16 Past Psychological History: No Psychological Hx Reported Smoking Status: Former smoker Past Alcohol Use History: Rare Additional Past Alcohol Use History / Comment(s): QUIT SMOKING 1974 EST, UNSURE # OF YEARS. Past Drug Use History: None Reported - Past Family History Mother Family Medical History: CVA/TIA, Hypertension Father Family Medical History: No Reported History Medications and Allergies Home Medications Medication Instructions Recorded Confirmed Type Atorvastatin [Lipitor] 40 mg PO HS 04/22/16 04/02/19 History Eltrombopag Olamine [Promacta] 50 mg PO HS 10/30/17 04/02/19 History Clopidogrel [Plavix] 75 mg PO DAILY #30 tab 09/07/18 04/02/19 Rx Acetaminophen Tab [Tylenol Tab] 500 mg PO BID@1200,2100 04/02/19 04/02/19 History Calcium Polycarbophil [Fiber-Lax] 625 mg PO AC-LUNCH 04/02/19 04/02/19 History Cholecalciferol [Vitamin D3 (25 1,000 unit PO DAILY 04/02/19 04/02/19 History Mcg = 1000 Iu)] Citalopram Hydrobromide [CeleXA] 20 mg PO DAILY 04/02/19 04/02/19 History Potassium Chloride ER [K-Dur 10] 10 meq PO AC-LUNCH 04/02/19 04/02/19 History Saxagliptin HCl [Onglyza] 2.5 mg PO DAILY 04/02/19 04/02/19 History Torsemide [Demadex] 20 mg PO DAILY 04/02/19 04/02/19 History Allergies Allergy/AdvReac Type Severity Reaction Status Date / Time No Known Allergies Allergy Verified 04/02/19 21:35 Physical Exam Vitals: Vital Signs Temp Pulse Resp BP Pulse Ox 04/03/19 12:00 99.6 F 82 12 99/46 98 04/03/19 11:30 78 13 97/46 96 04/03/19 11:00 80 16 101/49 96 04/03/19 10:30 81 17 89/43 96 04/03/19 10:00 79 18 79/60 96 04/03/19 09:30 92 28 H 99/65 94 L 04/03/19 09:00 82 26 H 98/46 96 04/03/19 08:30 78 27 H 99/53 96 04/03/19 08:00 98.9 F 78 26 H 96/46 94 L 04/03/19 07:30 84 12 103/45 95 04/03/19 07:00 80 25 H 95/46 95 04/03/19 06:30 75 26 H 96/48 95 04/03/19 06:00 76 20 94/49 96 04/03/19 05:30 73 31 H 96/44 95 04/03/19 05:00 71 21 73/36 96 04/03/19 04:30 98.0 F 73 21 98/50 95 04/03/19 04:00 75 23 99/48 95 04/03/19 03:30 79 22 110/53 96 04/03/19 03:00 98.2 F 76 14 104/56 97 04/03/19 02:08 98.6 F 78 16 102/51 98 04/03/19 02:00 77 12 103/47 100 04/03/19 01:00 98.8 F 77 21 99/47 96 04/03/19 00:33 70 16 106/50 96 04/03/19 00:00 79 23 100/42 98 04/02/19 23:00 90 27 H 105/54 95 04/02/19 21:17 97.8 F 104 H 22 76/44 97 Intake and Output 04/02/19 04/03/19 04/03/19 22:59 06:59 14:59 Intake Total 790 950 Output Total 300 Balance 790 650 Intake: IV 700 550 Magnesium Sulfate-D5w Pmx 300 1 gm In Dextrose/Water 1 100ml.bag @ 100 mls/hr IVPB Q1H JESS Rx#: [id number] Piperacillin-Tazobactam 3 100 .375 gm In Sodium Chloride 0.9% 100 ml @ 25 mls/hr IVPB Q8H JESS Rx#: [id number] Potassium Chloride 10 meq 400 In Water For Injection 1 100ml.bag @ 100 mls/hr IVPB Q1HR JESS Rx#: [id number] Sodium Chloride 0.9% 1, 300 150 000 ml @ 75 mls/hr IV . [id number] JESS Rx#:[id number] Oral 90 Tube Feeding 400 Output: Urine 300 Other: Voiding Method Urinal # Voids 1 Weight 83.915 kg GENERAL EXAM: Alert, pleasant, 73-year-old obese white male comfortable in no apparent distress. The patient is resting comfortably in bed on oxygen at 2 L per minute nasal cannula. HEAD: Normocephalic/atraumatic. EYES: Normal reaction of pupils, equal size. Conjunctiva pink, sclera white. NOSE: Clear with pink turbinates. THROAT: No erythema or exudates. NECK: No masses, no JVD, no thyroid enlargement, no adenopathy. CHEST: No chest wall deformity. Symmetrical expansion. LUNGS: Breath sounds are diminished bilaterally and the lungs are clear without any significant crackling at this point in time. CVS: Irregular rate and rhythm, normal S1 and S2, no gallops, no murmurs, no rubs, the patient has occasional paced rhythm and the rhythm is somewhat irregular at this point in time. ABDOMEN: Soft, nontender. No hepatosplenomegaly, normal bowel sounds, no guarding or rigidity. EXTREMITIES: No clubbing, no edema, no cyanosis, diminished pulses and upper and lower extremities. MUSCULOSKELETAL: Muscle strength and tone normal. SPINE: No scoliosis or deformity SKIN: No rashes CENTRAL NERVOUS SYSTEM: Alert and oriented -3. No focal deficits, tone is normal in all 4 extremities. PSYCHIATRIC: Alert and oriented -3. Appropriate affect. Intact judgment and insight. Results - Laboratory Findings CBC and BMP: 04/03/19 04:39 04/03/19 04:39 PT/INR, D-dimer PT 14.0 sec (9.0-12.0) H 04/02/19 21:50 INR 1.4 (<1.2) H 04/02/19 21:50 Abnormal lab findings: Abnormal Labs 04/02/19 04/02/19 04/02/19 21:50 21:50 21:50 WBC 91.7 H* RBC 3.12 L Hgb 8.5 L Hct 27.3 L MCHC RDW 23.0 H Plt Count 48 L Neutrophils # (Manual) 29.30 H Lymphocytes # (Manual) 27.51 H Monocytes # (Manual) 33.93 H Myelocytes # (Manual) 1.83 H Nucleated RBCs 2 H PT INR APTT Potassium 3.3 L Carbon Dioxide 20 L BUN Creatinine 1.73 H Glucose 147 H POC Glucose (mg/dL) Plasma Lactic Acid Geovany 5.3 H* Calcium 7.9 L Magnesium 0.6 L* ALT 10 L Troponin I Albumin 3.4 L 04/02/19 04/02/19 04/03/19 21:50 21:50 01:55 WBC RBC Hgb Hct MCHC RDW Plt Count Neutrophils # (Manual) Lymphocytes # (Manual) Monocytes # (Manual) Myelocytes # (Manual) Nucleated RBCs PT 14.0 H INR 1.4 H APTT 32.9 H Potassium Carbon Dioxide BUN Creatinine Glucose POC Glucose (mg/dL) Plasma Lactic Acid Geovany 2.3 H* Calcium Magnesium ALT Troponin I 0.041 H* Albumin 04/03/19 04/03/19 04/03/19 02:43 04:39 04:39 WBC 70.7 H* RBC 2.66 L Hgb 7.2 L Hct 23.6 L MCHC 30.7 L RDW 23.2 H Plt Count 53 L Neutrophils # (Manual) 20.50 H Lymphocytes # (Manual) 16.97 H Monocytes # (Manual) 34.64 H Myelocytes # (Manual) Nucleated RBCs 2 H PT INR APTT Potassium Carbon Dioxide BUN 22 H Creatinine 1.82 H Glucose 119 H POC Glucose (mg/dL) 146 H Plasma Lactic Acid Geovany Calcium 7.3 L Magnesium 1.1 L ALT Troponin I Albumin - Diagnostic Findings Chest x-ray: image reviewed Assessment and Plan Plan: 1 diffuse diarrhea with intravascular volume depletion, dehydration and leukocytosis and tachycardia and some mild lactic acidosis. Consider recurrent C. diff colitis first and the patient was recently hospitalized for a urine checked infection and the patient was offered antibiotics. There is also infiltration of the left lower lobe which raises concern for pneumonia although C. diff colitis felt to be most likely possibility in this situation. 3 mild lactic acidosis 4 acute kidney injury secondary to intravascular volume depletion. Patient is oliguric at this point in time. 5 history of coronary artery disease with previous non-ST segment elevation myocardial infarction requiring emergent cardiac catheterization and stenting of the circumflex 6 previous history of cardiogenic shock post cardiac catheterization and insertion of a stent. The patient was supported by intra-aortic balloon pump is pressors back in March 2018 7 congestion heart failure with ischemic cardiomyopathy and ejection fraction of 30-35%. The patient has an AICD in place 8 diabetes mellitus type 2 9 COPD 10 previous history of ITP, platelet count is down to 53,000 11 chronic anemia with a hemoglobin of 8.3 12 severe leukocytosis 13 hypomagnesemia, being replaced 14 mild troponin leak 15 impaired performance and functional status secondary to above-mentioned comorbidities. Plan Continue fluid resuscitation. Patient on normal state rate of 75 mL an hour. Oral vancomycin. IV Zosyn. Stool for C. diff. Blood cultures. Repeat chest x-ray in the morning. Monitor the blood sugar. Monitor urine output. Monitor white cell count. Monitor the lactic acid level. Obtain UA. Obtain urine culture. Obtain records from [facility]. We'll continue to follow.
[2019-04-03 14:08] LABS: Anisocytosis Moderate; HCT 22.8 % (39.0-53.0); HGB 7.1 gm/dL (13.0-17.5); Hypochromasia Marked; MCH 27.9 pg (25.0-35.0); MCHC 31.3 g/dL (31.0-37.0); MCV 89.3 fL (80.0-100.0); Macrocytosis Slight; Mean Platelet Volume 8.6; Microcytosis Slight; Poikilocytosis Slight; RBC 2.56 m/uL (4.30-5.90); RDW 22.8 % (11.5-15.5)
[2019-04-03 14:17] LABS: Platelet Count 35 k/uL (150-450)
[2019-04-03] MEDS: SODIUM CHLORIDE 0.9% 1,000 ML IV SCH (16:30)
[2019-04-03 18:31] LABS: Amorphous Sediment,Urine Occasional /hpf; Appearance,Urine Cloudy (Clear); Bilirubin,Urine Negative (Negative); Blood,Urine Trace (Negative); Color,Urine Yellow; Glucose,Urine (UA) Negative (Negative); Granular Casts,Urine 17 /lpf (0); Ketones,Urine Negative (Negative); Leukocyte Esterase,Urine Negative (Negative); Mucus,Urine Rare /hpf; Nitrite,Urine Negative (Negative); Protein,Urine 1+ (Negative); RBC,Urine 1 /hpf (0-5); Specific Gravity,Urine 1.018 (1.001-1.035); Urobilinogen,Urine <2.0 mg/dL (<2.0); WBC,Urine 2 /hpf (0-5)
[2019-04-03 20:05] LABS: Magnesium 1.5 mg/dL (1.6-2.3); Potassium 3.7 mmol/L (3.5-5.1)
[2019-04-03] MEDS: PROMACTA 50 MG PO SCH ×2 (20:55→21:26)
[2019-04-03] MEDS: ATORVASTATIN 40 MG TAB PO SCH (20:56)
[2019-04-03] MEDS ORDERED: POTASSIUM CHLORIDE ER 20 MEQ TAB.ER PO SCH (21:00)
--- NOTE | 2019-04-03 22:42 | P.CONS ---
History of Present Illness - Reason for Consult Consult date: 04/03/19 Sepsis Requesting physician: Syd Yi - Chief Complaint Weakness and no energy and cough x 1 week - History of Present Illness Patient is a 74 year male who has been brought into the ER at [facility] for evaluation of generalized weakness no energy and not doing well for about a week the patient has been discharged from [facility] about a week ago and the patient was treated for UTI during that admission subsequently patient did have diarrhea and the patient did have multiple stool for C. diff test at [facility] and those were negative patient continued to do poorly, complaining of weakness and no energy patient also have some shortness of breath and did have a cough which is [id number] intensity mild whitish clear sputum no hemoptysis or chest pain no nausea no vomiting patient denies having abdominal pain however did have a loose stools 3-4 episodes per day no blood or mucus in the stools, patient has b een evaluated by the ER physician patient did have elevated BUN, creatinine stool for C. diff was negative, chest x-ray suspicious for left lower lobe infiltrate patient had been started on Zosyn and oral vancomycin currently in the ICU infectious disease was consulted for further recommendation for antibiotic therapy Review of Systems Positive points has been mentioned in HPI rest of the systems negative Past Medical History Past Medical History: Blood Disorder, Coronary Artery Disease (CAD), Cancer, Chest Pain / Angina, Dementia, Myocardial Infarction ([place]), Musculoskeletal Disorder Additional Past Medical History / Comment(s): Coronary artery disease, previous non-ST segment elevation myocardial infarction, recent hospitalization for cardiogenic shock, stenting of the circumflex artery, systolic heart failure with ejection fraction of 30-35%, prostate cancer with previous radiation therapy that he completed in March 2015, history of ITP, history of AICD placement, history of ventricular tachycardia, diabetes mellitus, ITP, history of C. diff colitis Last Myocardial Infarction Date:: 06/16/2015 History of Any Multi-Drug Resistant Organisms: None Reported Past Surgical History: AICD, Appendectomy, Cholecystectomy, Heart Catheterization With Stent, Pacemaker Additional Past Surgical History / Comment(s): Stent to the LAD 06/16/2015. CARDIOVERSION; AICD 04/26/16, [employer]. Defibrillator placement, insertion and removal of a intra-aortic balloon pump, cardiac catheterization and stenting of the circumflex in March 2018 Past Anesthesia/Blood Transfusion Reactions: No Reported Reaction Date of Last Stent Placement:: 06/16/2015 Type of Cardiac Device: AICD Device Placement Date:: 04/26/16 Past Psychological History: No Psychological Hx Reported Smoking Status: Former smoker Past Alcohol Use History: Rare Additional Past Alcohol Use History / Comment(s): QUIT SMOKING 1974 EST, UNSURE # OF YEARS. Past Drug Use History: None Reported - Past Family History Mother Family Medical History: CVA/TIA, Hypertension Father Family Medical History: No Reported History Medications and Allergies Home Medications Medication Instructions Recorded Confirmed Type Atorvastatin [Lipitor] 40 mg PO HS 04/22/16 04/02/19 History Eltrombopag Olamine [Promacta] 50 mg PO HS 10/30/17 04/02/19 History Clopidogrel [Plavix] 75 mg PO DAILY #30 tab 09/07/18 04/02/19 Rx Acetaminophen Tab [Tylenol Tab] 500 mg PO BID@1200,2100 04/02/19 04/02/19 History Calcium Polycarbophil [Fiber-Lax] 625 mg PO AC-LUNCH 04/02/19 04/02/19 History Cholecalciferol [Vitamin D3 (25 1,000 unit PO DAILY 04/02/19 04/02/19 History Mcg = 1000 Iu)] Citalopram Hydrobromide [CeleXA] 20 mg PO DAILY 04/02/19 04/02/19 History Potassium Chloride ER [K-Dur 10] 10 meq PO AC-LUNCH 04/02/19 04/02/19 History Saxagliptin HCl [Onglyza] 2.5 mg PO DAILY 04/02/19 04/02/19 History Torsemide [Demadex] 20 mg PO DAILY 04/02/19 04/02/19 History Allergies Allergy/AdvReac Type Severity Reaction Status Date / Time No Known Allergies Allergy Verified 04/02/19 21:35 Physical Exam Vitals: Vital Signs Temp Pulse Resp BP Pulse Ox 04/03/19 22:00 78 18 90/43 96 04/03/19 21:30 74 20 99/56 96 04/03/19 21:00 77 16 97/79 96 04/03/19 20:30 79 19 95/51 96 04/03/19 20:00 75 20 94/49 94 L 07/07/19 19:30 75 17 94/45 94 L 04/03/19 19:00 81 24 94/45 94 L 04/03/19 18:00 89 24 101/49 96 04/03/19 17:30 92 25 H 91/48 95 04/03/19 17:00 86 24 95/51 97 04/03/19 16:30 89 17 101/50 97 04/03/19 16:00 101.0 F H 85 15 96/53 96 04/03/19 15:30 85 23 97/49 97 04/03/19 15:00 85 23 95/49 96 04/03/19 14:30 86 41 H 82/53 97 04/03/19 14:00 82 18 82/53 98 04/03/19 13:00 84 10 L 102/51 98 04/03/19 12:00 99.6 F 82 12 99/46 98 04/03/19 11:30 78 13 97/46 96 04/03/19 11:00 80 16 101/49 96 04/03/19 10:30 81 17 89/43 96 04/03/19 10:00 79 18 79/60 96 04/03/19 09:30 92 28 H 99/65 94 L 04/03/19 09:00 82 26 H 98/46 96 04/03/19 08:30 78 27 H 99/53 96 04/03/19 08:00 98.9 F 78 26 H 96/46 94 L 04/03/19 07:30 84 12 103/45 95 04/03/19 07:00 80 25 H 95/46 95 04/03/19 06:30 75 26 H 96/48 95 04/03/19 06:00 76 20 94/49 96 04/03/19 05:30 73 31 H 96/44 95 04/03/19 05:00 71 21 73/36 96 04/03/19 04:30 98.0 F 73 21 98/50 95 04/03/19 04:00 75 23 99/48 95 04/03/19 03:30 79 22 110/53 96 04/03/19 03:00 98.2 F 76 14 104/56 97 04/03/19 02:08 98.6 F 78 16 102/51 98 04/03/19 02:00 77 12 103/47 100 04/03/19 01:00 98.8 F 77 21 99/47 96 04/03/19 00:33 70 16 106/50 96 04/03/19 00:00 79 23 100/42 98 04/02/19 23:00 90 27 H 105/54 95 Intake and Output 04/03/19 04/03/19 04/03/19 06:59 14:59 22:59 Intake Total 790 1175 675 Output Total 300 400 Balance 790 875 275 Intake: IV 700 775 675 Magnesium Sulfate-D5w Pmx 300 100 1 gm In Dextrose/Water 1 100ml.bag @ 100 mls/hr IVPB Q1H JESS Rx#: [id number] Piperacillin-Tazobactam 3 100 50 .375 gm In Sodium Chloride 0.9% 100 ml @ 25 mls/hr IVPB Q8H JESS Rx#: [id number] Potassium Chloride 10 meq 400 In Water For Injection 1 100ml.bag @ 100 mls/hr IVPB Q1HR JESS Rx#: [id number] Sodium Chloride 0.9% 1, 300 375 525 000 ml @ 75 mls/hr IV . [id number] JESS Rx#:[id number] Oral 90 Tube Feeding 400 Output: Urine 300 400 Other: Voiding Method Urinal Urinal # Voids 1 0 # Bowel Movements 2 GENERAL DESCRIPTION: An elderly male lying in bed, no distress. No tachypnea or accessory muscle of respiration use. HEENT: Shows Pallor , no scleral icterus. Oral mucous membrane is dry. No pharyngeal erythema or thrush NECK: Trachea central, no thyromegaly. LUNGS: Unlabored breathing. Decreased breath sound at the base. No wheeze or crackle. HEART: S1, S2, regular rate and rhythm. No loud murmur ABDOMEN: Soft, no tenderness , guarding or rigidity, no organomegaly EXTREMITIES: No edema of feet. SKIN: No rash, no masses palpable. NEUROLOGICAL: The patient is awake, alert, oriented x3, mood and affect normal Results CBC & Chem 7: 04/03/19 13:13 04/03/19 19:26 Labs: Abnormal Lab Results - Last 24 Hours (Table) 04/02/19 04/02/19 04/02/19 Range/Units 21:50 21:50 21:50 WBC 91.7 H* (3.8-10.6) k/uL RBC 3.12 L (4.30-5.90) m/uL Hgb 8.5 L (13.0-17.5) gm/dL Hct 27.3 L (39.0-53.0) % MCHC (31.0-37.0) g/dL RDW 23.0 H (11.5-15.5) % Plt Count 48 L (150-450) k/uL Neutrophils # (Manual) 29.30 H (1.3-7.7) k/uL Lymphocytes # (Manual) 27.51 H (1.0-4.8) k/uL Monocytes # (Manual) 33.93 H (0-1.0) k/uL Myelocytes # (Manual) 1.83 H (0) k/uL Nucleated RBCs 2 H (0-0) /100 WBC PT (9.0-12.0) sec INR (<1.2) APTT (22.0-30.0) sec Potassium 3.3 L (3.5-5.1) mmol/L Carbon Dioxide 20 L (22-30) mmol/L BUN (9-20) mg/dL Creatinine 1.73 H (0.66-1.25) mg/dL Glucose 147 H (74-99) mg/dL POC Glucose (mg/dL) (75-99) mg/dL Plasma Lactic Acid Geovany 5.3 H* (0.7-2.0) mmol/L Calcium 7.9 L (8.4-10.2) mg/dL Magnesium 0.6 L* (1.6-2.3) mg/dL ALT 10 L (21-72) U/L Troponin I (0.000-0.034) ng/mL Albumin 3.4 L (3.5-5.0) g/dL Urine Protein (Negative) Urine Blood (Negative) Amorphous Sediment (None) /hpf Urine Mucus (None) /hpf 04/02/19 04/02/19 04/03/19 Range/Units 21:50 21:50 01:55 WBC (3.8-10.6) k/uL RBC (4.30-5.90) m/uL Hgb (13.0-17.5) gm/dL Hct (39.0-53.0) % MCHC (31.0-37.0) g/dL RDW (11.5-15.5) % Plt Count (150-450) k/uL Neutrophils # (Manual) (1.3-7.7) k/uL Lymphocytes # (Manual) (1.0-4.8) k/uL Monocytes # (Manual) (0-1.0) k/uL Myelocytes # (Manual) (0) k/uL Nucleated RBCs (0-0) /100 WBC PT 14.0 H (9.0-12.0) sec INR 1.4 H (<1.2) APTT 32.9 H (22.0-30.0) sec Potassium (3.5-5.1) mmol/L Carbon Dioxide (22-30) mmol/L BUN (9-20) mg/dL Creatinine (0.66-1.25) mg/dL Glucose (74-99) mg/dL POC Glucose (mg/dL) (75-99) mg/dL Plasma Lactic Acid Geovany 2.3 H* (0.7-2.0) mmol/L Calcium (8.4-10.2) mg/dL Magnesium (1.6-2.3) mg/dL ALT (21-72) U/L Troponin I 0.041 H* (0.000-0.034) ng/mL Albumin (3.5-5.0) g/dL Urine Protein (Negative) Urine Blood (Negative) Amorphous Sediment (None) /hpf Urine Mucus (None) /hpf 04/03/19 04/03/19 04/03/19 Range/Units 02:43 04:39 04:39 WBC 70.7 H* (3.8-10.6) k/uL RBC 2.66 L (4.30-5.90) m/uL Hgb 7.2 L (13.0-17.5) gm/dL Hct 23.6 L (39.0-53.0) % MCHC 30.7 L (31.0-37.0) g/dL RDW 23.2 H (11.5-15.5) % Plt Count 53 L (150-450) k/uL Neutrophils # (Manual) 20.50 H (1.3-7.7) k/uL Lymphocytes # (Manual) 16.97 H (1.0-4.8) k/uL Monocytes # (Manual) 34.64 H (0-1.0) k/uL Myelocytes # (Manual) (0) k/uL Nucleated RBCs 2 H (0-0) /100 WBC PT (9.0-12.0) sec INR (<1.2) APTT (22.0-30.0) sec Potassium (3.5-5.1) mmol/L Carbon Dioxide (22-30) mmol/L BUN 22 H (9-20) mg/dL Creatinine 1.82 H (0.66-1.25) mg/dL Glucose 119 H (74-99) mg/dL POC Glucose (mg/dL) 146 H (75-99) mg/dL Plasma Lactic Acid Geovany (0.7-2.0) mmol/L Calcium 7.3 L (8.4-10.2) mg/dL Magnesium 1.1 L (1.6-2.3) mg/dL ALT (21-72) U/L Troponin I (0.000-0.034) ng/mL Albumin (3.5-5.0) g/dL Urine Protein (Negative) Urine Blood (Negative) Amorphous Sediment (None) /hpf Urine Mucus (None) /hpf 04/03/19 04/03/19 04/03/19 Range/Units 13:13 18:06 19:26 WBC 69.4 H* (3.8-10.6) k/uL RBC 2.56 L (4.30-5.90) m/uL Hgb 7.1 L (13.0-17.5) gm/dL Hct 22.8 L (39.0-53.0) % MCHC (31.0-37.0) g/dL RDW 22.8 H (11.5-15.5) % Plt Count 35 L (150-450) k/uL Neutrophils # (Manual) (1.3-7.7) k/uL Lymphocytes # (Manual) (1.0-4.8) k/uL Monocytes # (Manual) (0-1.0) k/uL Myelocytes # (Manual) (0) k/uL Nucleated RBCs (0-0) /100 WBC PT (9.0-12.0) sec INR (<1.2) APTT (22.0-30.0) sec Potassium (3.5-5.1) mmol/L Carbon Dioxide (22-30) mmol/L BUN (9-20) mg/dL Creatinine (0.66-1.25) mg/dL Glucose (74-99) mg/dL POC Glucose (mg/dL) (75-99) mg/dL Plasma Lactic Acid Geovany (0.7-2.0) mmol/L Calcium (8.4-10.2) mg/dL Magnesium 1.5 L (1.6-2.3) mg/dL ALT (21-72) U/L Troponin I (0.000-0.034) ng/mL Albumin (3.5-5.0) g/dL Urine Protein 1+ H (Negative) Urine Blood Trace H (Negative) Amorphous Sediment Occasional H (None) /hpf Urine Mucus Rare H (None) /hpf Assessment and Plan Assessment: 1-patient presented to hospital with multiple symptoms including generalized weakness no energy in this patient who did have recent hospitalization at [facility] with the patient was treated for UTI with antibiotic exposure and diarrhea concern is high for her C. diff colitis the initial stool for C. diff came back negative patient also have a cough with some yellowish sputum underlying nosocomial pneumonia is not entirely excluded, patient knew is currently negative and did not have any urinary symptoms Plan: 1-we will try to obtain sputum for Gram stain and culture 2-we will check stool for C. diff by PCR 3-patient to continue her with Zosyn 3.75 g every 8 hours and oral vancomycin 4-gentle IV fluid we will follow up on clinical condition and cultures to further adjust medication if needed Thank you for this consultation will follow this patient along with you Time with Patient: Greater than 30
[2019-04-04] MEDS ORDERED: MELATONIN 3 MG TABLET PO ONE (01:47)
[2019-04-04] MEDS: SODIUM CHLORIDE 0.9% 1,000 ML IV SCH ×2 (01:51→15:30)
[2019-04-04] MEDS: VANCOMYCIN ORAL SOLUTION 250 MG/5 ML BOTTLE PO SCH ×2 (05:08→12:34)
[2019-04-04] MEDS: CHERRY FLAVOR 60 ML BOTTLE PO SCH ×2 (05:08→12:35)
[2019-04-04 06:13] LABS: Albumin 2.8 g/dL (3.5-5.0); Calcium 7.1 mg/dL (8.4-10.2); Magnesium 1.7 mg/dL (1.6-2.3); Potassium 4.2 mmol/L (3.5-5.1); Total Bilirubin 1.6 mg/dL (0.2-1.3)
[2019-04-04 06:14] LABS: Anisocytosis Moderate; Hypochromasia Marked; MCH 26.8 pg (25.0-35.0); MCHC 29.3 g/dL (31.0-37.0); MCV 91.6 fL (80.0-100.0); Macrocytosis Slight; Mean Platelet Volume 13.8; Microcytosis Slight; Poikilocytosis Slight; RBC 2.62 m/uL (4.30-5.90); RDW 23.5 % (11.5-15.5)
[2019-04-04 06:15] LABS: Platelet Count 52 k/uL (150-450)
[2019-04-04 06:39] LABS: Total Cells Counted 200
[2019-04-04] MEDS ORDERED: IPRATROPIUM-ALBUTEROL 3 ML NEB INHALATION PRN (08:11)
[2019-04-04] MEDS: IPRATROPIUM-ALBUTEROL 3 ML NEB INHALATION SCH ×4 (08:14→21:06)
[2019-04-04 08:26] LABS: Band Neutrophils % 4 %; Metamyelocytes % 3 %; Myelocytes % 2 %; Neutrophils % (M) 24 %
[2019-04-04 08:27] LABS: Blast Cells # (M) 1.36 k/uL (0); Lymphocytes # (M) 3.41 k/uL (1.0-4.8); Metamyelocytes # (M) 2.05 k/uL (0); Monocytes # (M) 42.28 k/uL (0-1.0); Myelocytes # (M) 1.36 k/uL (0); Nucleated Red Blood Cells 3 /100 WBC (0-0); WBC 68.2 k/uL (3.8-10.6)
[2019-04-04] MEDS ORDERED: FUROSEMIDE 10 MG/ML 2 ML VIAL IV ONE (08:29)
[2019-04-04 08:34] LABS: Large Platelets Present; Polychromasia Present
--- NOTE | 2019-04-04 08:49 | XR ---
EXAMINATION TYPE: XR chest 1V portable DATE OF EXAM: 04/04/2019 COMPARISON: 04/03/2019 HISTORY: Shortness of breath TECHNIQUE: Single frontal view of the chest is obtained. FINDINGS: There is left lower lobe infiltrate and small effusion. Bilateral interstitial process see n. Cardiomegaly and cardiac device. No pneumothorax. Arthropathy of the shoulders. IMPRESSION: 1. Left lower lobe infiltrate and small effusion. Correlate for CHF. Otherwise consider pneumonia
[2019-04-04 08:58] LABS: Band Neutrophils % 5 %; Metamyelocytes % 4 %; Myelocytes % 3 %; Neutrophils % (M) 26 %
[2019-04-04 08:59] LABS: Nucleated Red Blood Cells 2 /100 WBC (0-0); Total Cells Counted 200
[2019-04-04 09:00] LABS: Basophils # (M) 0.68 k/uL (0-0.2); Blast Cells # (M) 2.04 k/uL (0); Metamyelocytes # (M) 2.72 k/uL (0); Monocytes # (M) 36.72 k/uL (0-1.0); Myelocytes # (M) 2.04 k/uL (0); Polychromasia Present
[2019-04-04] MEDS ORDERED: CEFEPIME 2 GM in SODIUM CHLORIDE 0.9% 100 ML IVPB SCH (09:00)
[2019-04-04] MEDS: PANTOPRAZOLE 40 MG/10 ML VIAL IV SCH (09:14)
[2019-04-04] MEDS: CITALOPRAM HYDROBROMIDE 20 MG TAB PO SCH (09:14)
[2019-04-04] MEDS: CHOLECALCIFEROL 1,000 UNIT TAB PO SCH (09:14)
[2019-04-04] MEDS: PIPERACILLIN-TAZOBACTAM 3.375 GM in SODIUM CHLORIDE 0.9% 100 ML IVPB SCH ×3 (09:15→23:07)
[2019-04-04] MEDS: MAGNESIUM SULFATE-D5W PMX 1 GM in DEXTROSE/WATER 1 100ML.BAG IVPB SCH ×2 (09:26→10:44)
[2019-04-04] MEDS ORDERED: FUROSEMIDE 10 MG/ML 4 ML VIAL IV STA (10:10)
--- NOTE | 2019-04-04 11:28 | P.PN ---
Subjective Progress Note Date: 04/04/19 Principal diagnosis: Acute hypotension, intravascular volume depletion, dehydration, possible sepsis. This is a 74-year-old male patient who came into the emergency department yes terday with hypotension, tachycardia diarrhea and dehydration. The patient was found to have an acute kidney injury with a creatinine was at 1.8 and his previous creatinine from August 2018 was 1.2.. Lactic acidosis which was as high as 5.3 which came down to 2.3 after being given a total of 37 IV fluids. The patient received a total of 2 L normal saline and started on normal saline infusion at 75 mL an hour and no pressors was used. The chest x-ray shows a limited left lower lobe pulmonary infiltration. No eye tach on is quite elevated at 90,000 and it's declining down to 70,000.This patient is known to me. Of taking care of him on previous admission. He is known to have coronary artery disease and he has been involved in a previous non-ST segment elevation myocardial infarction back in 2017. At that time the patient had a complex cardiac catheterization and stenting during which she also required intra-aortic balloon pump insertion. He did well and he was given a stent in his circumflex artery. The balloon was removed and the patient went to rehabilitation. Note that he also has history of congestion heart failure with systolic dysfunction and ejection fraction of 35-40% and he also has history of ITP, AICD in place, diverticulosis, chronic anemia, osteoarthritis and previous history of C. diff. Note that following this admission, the patient was admitted to [facility] for a urine checked infection was discharged from the approximately a week ago after being given IV antibiotics. He was having loose/liquidy stools about 3-4 times a day and obviously this raises the concern for C. diff colitis. I started the patient on a combination of oral vancomycin and IV Zosyn pending further cultures and stool evaluation. Patient was reevaluated today on 04/04/2019, patient presented with hypotension tachycardia diarrhea and dehydration, patient was given fluids, started on antibiotics empirically, seems to be feeling a bit better today. However he is developing a bit of a cough, and his chest x-ray is showing some component of mild interstitial edema. Patient is known to have history of LV dysfunction, his ejection fraction is normally about 35%. Hence I recommended a dose of Lasix 40 mg IV push was given, I have The patient on the same antibiotics as initially given by Dr. Yi. Hemodynamically, the patient is stable, his urine output is reasonable. WBC count is down to 68.2 from 90,000 on presentation, electrolytes and renal profile were noted, creatinine is down to 1.75, bicarb is 20, patient is presently off bicarb drip. Remains on broad- spectrum antibiotics. All his meds were reviewed, he is on atorvastatin, vitamin D, Celexa, Lasix, albuterol with Atrovent updrafts, melatonin, Narcan, Protonix, Zosyn, potassium, and vancomycin. IV fluid is now at KVO. Patient is also on Promacta for chronic ITP. Objective - Vital Signs Vital signs: Vital Signs Temp 100.9 F H 04/04/19 08:00 Pulse 105 H 04/04/19 10:00 Resp 23 04/04/19 10:00 BP 107/53 04/04/19 10:00 Pulse Ox 93 L 04/04/19 10:00 Intake & Output 04/03/19 04/04/19 04/04/19 18:59 06:59 18:59 Intake Total 1525 1050 115 Output Total 600 100 360 Balance 925 950 -245 Weight 86.1 kg Intake: IV 1125 1050 115 Magnesium Sulfate-D5w Pmx 300 200 1 gm In Dextrose/Water 1 100ml.bag @ 100 mls/hr IVPB Q1H JESS Rx#: [id number] Piperacillin-Tazobactam 3 150 100 .375 gm In Sodium Chloride 0.9% 100 ml @ 25 mls/hr IVPB Q8H JESS Rx#: [id number] Sodium Chloride 0.9% 1, 675 750 115 000 ml @ 20 mls/hr IV . Q24H JESS Rx#:[id number] Tube Feeding 400 Output: Urine 600 100 360 Other: Voiding Method Urinal Urinal # Voids 0 0 # Bowel Movements 1 4 - Exam GENERAL EXAM: Physical exam revealed 74-year-old white male in no distress, very pleasant, has ongoing dry hacking cough. HEAD: Normocephalic/atraumatic. Dry mucous membranes noted. EYES PERRLA, EOMI, no icterus. NOSE: Clear with pink turbinates. THROAT: No erythema or exudates. NECK: Supple no neck masses no JVD.. CHEST: No chest wall deformity. Symmetrical expansion. LUNGS: Minimal fine crackles at the bases especially at the left base, no rhonchi no wheezes. CVS: Irregular rate and rhythm, normal S1 and S2, no gallops, no murmurs, no r ubs, pacemaker/defibrillator later noted on the left upper chest wall area. ABDOMEN: Soft nontender no megaly no rebound EXTREMITIES: No clubbing edema or cyanosis. MUSCULOSKELETAL: Normal muscle tone, adequate strength bilaterally. SKIN: No rashes CENTRAL NERVOUS SYSTEM: Alert and oriented 3, no gross focal neurologic deficits. Psychiatric: Normal mood affect and normal mental status examination. - Labs CBC & Chem 7: 04/04/19 05:44 04/04/19 05:44 Labs: Abnormal Lab Results - Last 24 Hours (Table) 04/03/19 04/03/19 04/03/19 Range/Units 13:13 18:06 19:26 WBC 68.0 H* (3.8-10.6) k/uL RBC 2.56 L (4.30-5.90) m/uL Hgb 7.1 L (13.0-17.5) gm/dL Hct 22.8 L (39.0-53.0) % MCHC (31.0-37.0) g/dL RDW 22.8 H (11.5-15.5) % Plt Count 35 L (150-450) k/uL Blast Cells % 3 H* % Neutrophils # (Manual) 21.00 H (1.3-7.7) k/uL Monocytes # (Manual) 36.72 H (0-1.0) k/uL Basophils # (Manual) 0.68 H (0-0.2) k/uL Metamyelocytes # (Man) 2.72 H (0) k/uL Myelocytes # (Manual) 2.04 H (0) k/uL Blast Cells # (Man) 2.04 H (0) k/uL Nucleated RBCs 2 H (0-0) /100 WBC Sodium (137-145) mmol/L Carbon Dioxide (22-30) mmol/L Creatinine (0.66-1.25) mg/dL Glucose (74-99) mg/dL Calcium (8.4-10.2) mg/dL Magnesium 1.5 L (1.6-2.3) mg/dL Total Bilirubin (0.2-1.3) mg/dL ALT (21-72) U/L Total Protein (6.3-8.2) g/dL Albumin (3.5-5.0) g/dL Urine Protein 1+ H (Negative) Urine Blood Trace H (Negative) Amorphous Sediment Occasional H (None) /hpf Urine Mucus Rare H (None) /hpf 04/04/19 04/04/19 Range/Units 05:44 05:44 WBC 68.2 H* (3.8-10.6) k/uL RBC 2.62 L (4.30-5.90) m/uL Hgb 7.0 L (13.0-17.5) gm/dL Hct 24.0 L (39.0-53.0) % MCHC 29.3 L (31.0-37.0) g/dL RDW 23.5 H (11.5-15.5) % Plt Count 52 L (150-450) k/uL Blast Cells % 2 H* % Neutrophils # (Manual) 19.00 H (1.3-7.7) k/uL Monocytes # (Manual) 42.28 H (0-1.0) k/uL Basophils # (Manual) (0-0.2) k/uL Metamyelocytes # (Man) 2.05 H (0) k/uL Myelocytes # (Manual) 1.36 H (0) k/uL Blast Cells # (Man) 1.36 H (0) k/uL Nucleated RBCs 3 H (0-0) /100 WBC Sodium 134 L (137-145) mmol/L Carbon Dioxide 20 L (22-30) mmol/L Creatinine 1.75 H (0.66-1.25) mg/dL Glucose 148 H (74-99) mg/dL Calcium 7.1 L (8.4-10.2) mg/dL Magnesium (1.6-2.3) mg/dL Total Bilirubin 1.6 H (0.2-1.3) mg/dL ALT 10 L (21-72) U/L Total Protein 6.0 L (6.3-8.2) g/dL Albumin 2.8 L (3.5-5.0) g/dL Urine Protein (Negative) Urine Blood (Negative) Amorphous Sediment (None) /hpf Urine Mucus (None) /hpf Microbiology - Last 24 Hours (Table) 04/02/19 23:25 Blood Culture - Preliminary Blood No Growth after 24 hours 04/03/19 18:28 Urine Culture - Preliminary Urine,Clean Catch Assessment and Plan Assessment: Impression: 1 acute hypotension secondary to diarrhea, dehydration, intravascular volume depletion, however possibility of sepsis is not entirely ruled out considering the patient had multiple episodes of C. difficile colitis. 2 suspect some component of mild systolic congestive heart failure, patient is known to have history of LV dysfunction, fluid boluses were given on presentation, I believe the patient is developing mild CHF changes on the chest x-ray hence IV fluid is present at KVO and the patient was given Lasix. 3 acute kidney injury, could be related to hypovolemia and could be related to hypotension. 4 chronic systolic dysfunction, patient had a previous AICD placement. 5 coronary artery disease and previous non-ST segment elevation myocardial infarction and previous stenting of the circumflex. 6 history of cardiogenic pulmonary edema back in March 29. 7 multiple comorbidities including type 2 diabetes, COPD, chronic ITP, chronic anemia, 8 leukemoid reaction, possible underlying myeloproliferative disorder. We will continue to monitor his CBC and WBC count. 9 mild troponin leak Recommendation: Continue present treatment plan including antibiotics empirically, patient is now on oral vancomycin and IV Zosyn, C. difficile screening has been negative in the stool, will give the patient diuretics in the form of Lasix, continue to monitor urine output, monitor his labs on a daily basis, and addressed accordingly. We'll continue to follow. Prognosis is guarded. Critical care time is 35 minutes. Time with Patient: Greater than 30
[2019-04-04] MEDS ORDERED: LOPERAMIDE 2 MG CAP PO PRN (12:43)
[2019-04-04] MEDS: POTASSIUM CHLORIDE ER 10 MEQ TAB.ER.PRT PO SCH (15:30)
--- NOTE | 2019-04-04 18:38 | PN ---
PROGRESS NOTE DATE OF SERVICE: 04/04/2019 REASON FOR FOLLOWUP: Pneumonia and a question of C difficile. INTERVAL HISTORY: The patient is currently afebrile. The patient has been breathing comfortably. The patient continues to have a cough with occasional sputum production. No nausea, no vomiting, no abdominal pain. The patient continues to have diarrhea; has almost 5 loose stools per day. A stool for PCR was requested; unfortunately not done. PHYSICAL EXAMINATION: Blood pressure is 98/50 with a pulse of 96, temperature 98.3. He is 98% on 5 L nasal cannula. General description is an elderly male lying in bed in no distress. RESPIRATORY SYSTEM: Unlabored breathing with decreased breath sounds at the base. No wheeze. HEART: S1, S2. Regular rate and rhythm. ABDOMEN: Soft. No tenderness. LABS: Hemoglobin is 7, white count 682. BUN of 19, creatinine 1.75. DIAGNOSTIC IMPRESSION AND PLAN: Patient admitted to hospital with generalized weakness and no energy in this patient who did have diarrhea for almost a week. Stool for C difficile has been negative. Subsequently the patient did spike a fever of 101 degrees Fahrenheit. With concern about possible left lower lobe pneumonia, patient is currently covered with Zosyn and oral vancomycin; to continue. RN has been advised to send stool C difficile PCR. Family at the bedside. Their questions were answered. MMSHOLAL / IJN: [id number] /
--- NOTE | 2019-04-04 20:38 | P.CRDCN ---
History of Present Illness History of present illness: This is Dr. Kern dictating a consult on this patient The patient was interviewed and examined by me IMPRESSION / ASSESSMENT: Patient with hypotension secondary to diarrhea dehydration and possible pneumonitis No cardiac issues at this time but he has a known history of coronary artery disease status post myocardial infarction the past status post cardiac stenting with intra-aortic balloon pump insertion at that point in 2018. His left ventricular ejection fraction was reduced 34-40% 8 congestive heart failure PLAN: Hydrate cautiously watch for signs of fluid overload continue cardiac medications. No specific cardiac issues at this point HPI Patient admitted with hypertension tachycardia diarrhea and dehydration. Was found to have acute kidney injury. Lactic acid level is high. He was treated with IV fluids. Chest x-ray shows possible left lower lobe pulmonary infiltrates and. White count is elevated Past history of coronary artery disease and myocardial infarction non-Q-wave 2017. History of reduced efferent was systolic function ejection fraction 3040% status post ICD placement ROS: No fever chills or rigors, no cough, phlegm or expectoration, no nausea, vomiting or diarrhea, no hematuria, dysuria, no musculoskeletal complaints, no strokes or seizures, no skin lesions. EXAMINATION: Blood pressure 98/59 mmHg respirations 23 pulse rate 94 afebrile Breath sounds are reduced bilaterally is Critical to the bases no rhonchi Heart sounds. Soft murmur gallop or rub Abdomen soft Extremities are warm REVIEW OF LABS, ECG & MEDICAL DATA Labs reviewed white count 16,000 hemoglobin 7.0 and at lites normal BUN 19 creatinine 1.75 Past Medical History Past Medical History: Blood Disorder, Coronary Artery Disease (CAD), Cancer, Chest Pain / Angina, Dementia, Myocardial Infarction ([place]), Musculoskeletal Disorder Additional Past Medical History / Comment(s): Coronary artery disease, previous non-ST segment elevation myocardial infarction, recent hospitalization for cardiogenic shock, stenting of the circumflex artery, systolic heart failure with ejection fraction of 30-35%, prostate cancer with previous radiation therapy that he completed in March 2015, history of ITP, history of AICD placement, history of ventricular tachycardia, diabetes mellitus, ITP, history of C. diff colitis Last Myocardial Infarction Date:: 06/16/2015 History of Any Multi-Drug Resistant Organisms: None Reported Past Surgical History: AICD, Appendectomy, Cholecystectomy, Heart Catheterizatio n With Stent, Pacemaker Additional Past Surgical History / Comment(s): Stent to the LAD 06/16/2015. CARDIOVERSION; AICD 04/26/16, [employer]. Defibrillator placement, in sertion and removal of a intra-aortic balloon pump, cardiac catheterization and stenting of the circumflex in March 2018 Past Anesthesia/Blood Transfusion Reactions: No Reported Reaction Date of Last Stent Placement:: 06/16/2015 Type of Cardiac Device: AICD Device Placement Date:: 04/26/16 Past Psychological History: No Psychological Hx Reported Smoking Status: Former smoker Past Alcohol Use History: Rare Additional Past Alcohol Use History / Comment(s): QUIT SMOKING 1974 EST, UNSURE # OF YEARS. Past Drug Use History: None Reported - Past Family History Mother Family Medical History: CVA/TIA, Hypertension Father Family Medical History: No Reported History Medications and Allergies Home Medications Medication Instructions Recorded Confirmed Type Atorvastatin [Lipitor] 40 mg PO HS 04/22/16 04/02/19 History Eltrombopag Olamine [Promacta] 50 mg PO HS 10/30/17 04/02/19 History Clopidogrel [Plavix] 75 mg PO DAILY #30 tab 09/07/18 04/02/19 Rx Acetaminophen Tab [Tylenol Tab] 500 mg PO BID@1200,2100 04/02/19 04/02/19 History Calcium Polycarbophil [Fiber-Lax] 625 mg PO AC-LUNCH 04/02/19 04/02/19 History Cholecalciferol [Vitamin D3 (25 1,000 unit PO DAILY 04/02/19 04/02/19 History Mcg = 1000 Iu)] Citalopram Hydrobromide [CeleXA] 20 mg PO DAILY 04/02/19 04/02/19 History Potassium Chloride ER [K-Dur 10] 10 meq PO AC-LUNCH 04/02/19 04/02/19 History Saxagliptin HCl [Onglyza] 2.5 mg PO DAILY 04/02/19 04/02/19 History Torsemide [Demadex] 20 mg PO DAILY 04/02/19 04/02/19 History Allergies Allergy/AdvReac Type Severity Reaction Status Date / Time No Known Allergies Allergy Verified 04/02/19 21:35 Physical Exam Vitals: Vital Signs Temp Pulse Pulse Resp BP Pulse Ox 04/04/19 19:00 92 24 109/67 98 04/04/19 18:00 98 24 114/57 98 04/04/19 17:00 92 20 101/52 98 04/04/19 16:00 98.0 F 94 99 23 98/59 98 04/04/19 15:00 96 22 98/50 96 04/04/19 14:00 103 H 22 103/48 95 04/04/19 13:00 105 H 24 90/43 92 L 04/04/19 12:10 96 04/04/19 12:00 98.3 F 96 99 22 100/62 98 04/04/19 11:58 98 04/04/19 11:00 98 26 H 108/63 94 L 04/04/19 10:00 105 H 23 107/53 93 L 04/04/19 09:00 108 H 23 96/44 91 L 04/04/19 08:27 124 H 04/04/19 08:17 112 H 04/04/19 08:00 100.9 F H 123 H 117 H 24 117/63 92 L 04/04/19 07:00 93 22 96/45 95 04/04/19 06:00 94 29 H 96/48 95 04/04/19 05:00 91 28 H 94/45 93 L 04/04/19 04:00 98.4 F 93 20 94/44 96 04/04/19 03:00 92 25 H 99/50 97 04/04/19 02:00 94 23 95/50 96 04/04/19 01:00 86 25 H 95/45 95 04/04/19 00:00 98.2 F 89 19 101/50 98 04/03/19 23:00 86 20 90/48 96 04/03/19 22:05 75 20 93/52 95 04/03/19 22:00 78 18 90/43 96 04/03/19 21:30 74 20 99/56 96 04/03/19 21:00 77 16 97/79 96 Intake and Output 04/04/19 04/04/19 04/04/19 06:59 14:59 22:59 Intake Total 725 595 200 Output Total 1015 525 Balance 724 -939 -992 Intake: IV 725 395 200 Magnesium Sulfate-D5w Pmx 100 200 1 gm In Dextrose/Water 1 100ml.bag @ 100 mls/hr IVPB Q1H [facility] Rx#: [id number] Piperacillin-Tazobactam 3 100 100 .375 gm In Sodium Chloride 0.9% 100 ml @ 25 mls/hr IVPB Q8H [facility] Rx#: [id number] Sodium Chloride 0.9% 1, 525 195 100 000 ml @ 20 mls/hr IV . Q24H [facility] Rx#:[id number] Tube Feeding 200 Output: Urine 1015 525 Other: Voiding Method Urinal Indwelling Catheter Indwelling Catheter # Voids 0 # Bowel Movements 1 4 Weight 86.1 kg Results 04/04/19 05:44 04/04/19 05:44 Cardiac Enzymes 04/04/19 Range/Units 05:44 AST 56 (17-59) U/L CBC 04/03/19 04/04/19 Range/Units 13:13 05:44 WBC 68.0 H* 68.2 H* (3.8-10.6) k/uL RBC 2.62 L (4.30-5.90) m/uL Hgb 7.0 L (13.0-17.5) gm/dL Hct 24.0 L (39.0-53.0) % Plt Count 52 L (150-450) k/uL Comprehensive Metabolic Panel 04/04/19 Range/Units 05:44 Sodium 134 L (137-145) mmol/L Potassium 4.2 (3.5-5.1) mmol/L Chloride 104 (98-107) mmol/L Carbon Dioxide 20 L (22-30) mmol/L BUN 19 (9-20) mg/dL Creatinine 1.75 H (0.66-1.25) mg/dL Glucose 148 H (74-99) mg/dL Calcium 7.1 L (8.4-10.2) mg/dL AST 56 (17-59) U/L ALT 10 L (21-72) U/L Alkaline Phosphatase 123 (38-126) U/L Total Protein 6.0 L (6.3-8.2) g/dL Albumin 2.8 L (3.5-5.0) g/dL Current Medications Generic Name Dose Route Start Last Admin Trade Name Freq PRN Reason Stop Dose Admin Acetaminophen 650 mg 04/03/19 00:14 04/03/19 17:56 Tylenol Tab PO 650 mg Q6HR PRN Administration Mild Pain or Fever > 100.5 Albuterol/Ipratropium 3 ml 04/04/19 12:00 04/04/19 17:30 Duoneb 0.5 Mg-3 Mg/3 Ml Soln INHALATION Not Given RT-QID JESS Albuterol/Ipratropium 3 ml 04/04/19 08:11 Duoneb 0.5 Mg-3 Mg/3 Ml Soln INHALATION RT-Q2H PRN Shortness Of Breath Or Wheezing Atorvastatin Calcium 40 mg 04/03/19 21:00 04/03/19 20:56 Lipitor PO 40 mg HS JESS Administration Cholecalciferol 1,000 unit 04/04/19 09:00 04/04/19 09:14 Vitamin D3 (25 Mcg = 1000 Iu) PO 1,000 unit DAILY JESS Administration Citalopram Hydrobromide 20 mg 04/04/19 09:00 04/04/19 09:14 Celexa PO 20 mg DAILY JESS Administration Sodium Chloride 1,000 mls @ 20 mls/hr 04/02/19 22:45 04/04/19 15:30 Saline 0.9% IV 20 mls/hr .Q24H JESS Administration Piperacillin Sod/Tazobactam 100 mls @ 25 mls/hr 04/04/19 00:00 04/04/19 16:29 Sod 3.375 gm/ Sodium Chloride IVPB 25 mls/hr Q8HR [facility] Administration Insulin Aspart 0 unit 04/04/19 21:00 Novolog SQ ACHS [facility] Protocol Loperamide HCl 2 mg 04/04/19 12:43 Imodium PO QID PRN Diarrhea Naloxone HCl 0.2 mg 04/03/19 00:14 Narcan IV Q2M PRN Opioid Reversal Promacta ( 50 mg 04/03/19 21:00 04/03/19 21:26 Eltrombopag Olamine) PO 50 mg 50 Mg Tablet HS [facility] Administration Pantoprazole Sodium 40 mg 04/05/19 07:30 Protonix PO AC-BRKFST JESS Potassium Chloride 10 meq 04/04/19 12:30 04/04/19 15:30 K-Dur 10 PO 10 meq AC-LUNCH JESS Administration Intake and Output 04/04/19 04/04/19 04/04/19 06:59 14:59 22:59 Intake Total 725 595 200 Output Total 1015 525 Balance 725 420 -325 Intake: IV 725 395 200 Magnesium Sulfate-D5w Pmx 100 200 1 gm In Dextrose/Water 1 100ml.bag @ 100 mls/hr IVPB Q1H [facility] Rx#: [id number] Piperacillin-Tazobactam 3 100 100 .375 gm In Sodium Chloride 0.9% 100 ml @ 25 mls/hr IVPB Q8H [facility] Rx#: [id number] Sodium Chloride 0.9% 1, 525 195 100 000 ml @ 20 mls/hr IV . Q24H [facility] Rx#:[id number] Tube Feeding 200 Output: Urine 1015 525 Other: Voiding Method Urinal Indwelling Catheter Indwelling Catheter # Voids 0 # Bowel Movements 1 4 Weight 86.1 kg 04/04/19 05:44 04/04/19 05:44
[2019-04-04 20:57] LABS: Glucose,Whole Blood 198 mg/dL (75-99)
[2019-04-04] MEDS: ATORVASTATIN 40 MG TAB PO SCH (21:08)
[2019-04-04] MEDS: PROMACTA 50 MG PO SCH (21:09)
[2019-04-04] MEDS: INSULIN ASPART (NovoLOG) 100 UNIT/ML VIAL SQ SCH (21:10)
[2019-04-05 05:37] LABS: Anisocytosis Moderate; HGB 7.2 gm/dL (13.0-17.5); Hypochromasia Marked; MCH 27.5 pg (25.0-35.0); MCHC 30.2 g/dL (31.0-37.0); MCV 90.9 fL (80.0-100.0); Macrocytosis Slight; Mean Platelet Volume 14.2; Poikilocytosis Slight; RBC 2.64 m/uL (4.30-5.90); RDW 22.4 % (11.5-15.5)
[2019-04-05 05:51] LABS: Calcium 7.1 mg/dL (8.4-10.2); Magnesium 1.5 mg/dL (1.6-2.3); Potassium 3.4 mmol/L (3.5-5.1); WBC 67.6 k/uL (3.8-10.6)
[2019-04-05 05:52] LABS: Platelet Count 62 k/uL (150-450)
[2019-04-05] MEDS ORDERED: Potassium Replacement Protocol 1 EACH MISC MISCELLANE PRN (06:37)
[2019-04-05] MEDS: POTASSIUM CHLORIDE ER 20 MEQ TAB.ER PO SCH ×2 (06:55→08:14)
[2019-04-05] MEDS: PANTOPRAZOLE 40 MG TABLET PO SCH (06:55)
[2019-04-05] MEDS: INSULIN ASPART (NovoLOG) 100 UNIT/ML VIAL SQ SCH ×4 (07:05→20:46)
[2019-04-05 07:15] LABS: Glucose,Whole Blood 124 mg/dL (75-99)
[2019-04-05] MEDS ORDERED: MAGNESIUM SULFATE-D5W PMX 1 GM in DEXTROSE/WATER 1 100ML.BAG IVPB ONE (07:30)
[2019-04-05] MEDS: IPRATROPIUM-ALBUTEROL 3 ML NEB INHALATION SCH ×4 (07:45→20:24)
--- NOTE | 2019-04-05 07:52 | XR ---
EXAMINATION TYPE: XR chest 1V portable DATE OF EXAM: 04/05/2019 COMPARISON: 04/04/2019 HISTORY: Shortness of breath TECHNIQUE: Single frontal view of the chest is obtained. FINDINGS: There is left lower lobe infiltrate and small effusion. Bilateral interstitial process seen . Cardiomegaly and cardiac device. No pneumothorax. Arthropathy of the shoulders. IMPRESSION: 1. Left lower lobe infiltrate and small effusion. Correlate for CHF. Otherwise consider pneumonia. Fi ndings stable.
[2019-04-05] MEDS: PIPERACILLIN-TAZOBACTAM 3.375 GM in SODIUM CHLORIDE 0.9% 100 ML IVPB SCH ×2 (08:14→15:46)
[2019-04-05] MEDS: CHOLECALCIFEROL 1,000 UNIT TAB PO SCH (08:14)
[2019-04-05] MEDS: CITALOPRAM HYDROBROMIDE 20 MG TAB PO SCH (08:15)
[2019-04-05 11:48] LABS: Glucose,Whole Blood 175 mg/dL (75-99)
[2019-04-05] MEDS: POTASSIUM CHLORIDE ER 10 MEQ TAB.ER.PRT PO SCH (11:55)
--- NOTE | 2019-04-05 12:23 | P.PN ---
Subjective Progress Note Date: 04/05/19 Principal diagnosis: Acute hypotension, intravascular volume depletion, dehydration, possible sepsis. This is a 74-year-old male patient who came into the emergency department yes terday with hypotension, tachycardia diarrhea and dehydration. The patient was found to have an acute kidney injury with a creatinine was at 1.8 and his previous creatinine from August 2018 was 1.2.. Lactic acidosis which was as high as 5.3 which came down to 2.3 after being given a total of 37 IV fluids. The patient received a total of 2 L normal saline and started on normal saline infusion at 75 mL an hour and no pressors was used. The chest x-ray shows a limited left lower lobe pulmonary infiltration. No eye tach on is quite elevated at 90,000 and it's declining down to 70,000.This patient is known to me. Of taking care of him on previous admission. He is known to have coronary artery disease and he has been involved in a previous non-ST segment elevation myocardial infarction back in 2017. At that time the patient had a complex cardiac catheterization and stenting during which she also required intra-aortic balloon pump insertion. He did well and he was given a stent in his circumflex artery. The balloon was removed and the patient went to rehabilitation. Note that he also has history of congestion heart failure with systolic dysfunction and ejection fraction of 35-40% and he also has history of ITP, AICD in place, diverticulosis, chronic anemia, osteoarthritis and previous history of C. diff. Note that following this admission, the patient was admitted to [facility] for a urine checked infection was discharged from the approximately a week ago after being given IV antibiotics. He was having loose/liquidy stools about 3-4 times a day and obviously this raises the concern for C. diff colitis. I started the patient on a combination of oral vancomycin and IV Zosyn pending further cultures and stool evaluation. Patient was reevaluated today on 04/04/2019, patient presented with hypotension tachycardia diarrhea and dehydration, patient was given fluids, started on antibiotics empirically, seems to be feeling a bit better today. However he is developing a bit of a cough, and his chest x-ray is showing some component of mild interstitial edema. Patient is known to have history of LV dysfunction, his ejection fraction is normally about 35%. Hence I recommended a dose of Lasix 40 mg IV push was given, I have The patient on the same antibiotics as initially given by Dr. Yi. Hemodynamically, the patient is stable, his urine output is reasonable. WBC count is down to 68.2 from 90,000 on presentation, electrolytes and renal profile were noted, creatinine is down to 1.75, bicarb is 20, patient is presently off bicarb drip. Remains on broad- spectrum antibiotics. All his meds were reviewed, he is on atorvastatin, vitamin D, Celexa, Lasix, albuterol with Atrovent updrafts, melatonin, Narcan, Protonix, Zosyn, potassium, and vancomycin. IV fluid is now at KVO. Patient is also on Promacta for chronic ITP. Patient was reevaluated today on 04/15/2019, patient is feeling much better, he is hemodynamically stable, chest x-ray showed evidence of mild interstitial edema, left lower lobe atelectasis, possible underlying infiltrate in the left lower lobe, however clinically the patient does not have symptoms to suggest pneumonia. Patient is not requiring any pressors, remains empirically on antibiotics, and he remains on diuretics, DuoNeb updrafts, continues to have diarrhea with black stools noted. Patient has a fecal management system in place. Objective - Vital Signs Vital signs: Vital Signs Temp 98.2 F 04/05/19 08:00 Pulse 104 H 04/05/19 11:51 Resp 25 H 04/05/19 12:00 BP 111/63 04/05/19 11:00 Pulse Ox 96 04/05/19 11:00 Intake & Output 04/04/19 04/05/19 04/05/19 18:59 06:59 18:59 Intake Total 775 540 300 Output Total 1465 885 295 Balance -690 -345 5 Weight 88.6 kg Intake: IV 575 340 200 Magnesium Sulfate-D5w Pmx 200 1 gm In Dextrose/Water 1 100ml.bag @ 100 mls/hr IVPB Q1H [facility] Rx#: [id number] Piperacillin-Tazobactam 3 100 .375 gm In Sodium Chloride 0.9% 100 ml @ 25 mls/hr IVPB Q8H [facility] Rx#: [id number] Piperacillin-Tazobactam 3 100 100 .375 gm In Sodium Chloride 0.9% 100 ml @ 25 mls/hr IVPB Q8HR [facility] Rx# :[id number] Sodium Chloride 0.9% 1, 275 240 100 000 ml @ 20 mls/hr IV . Q24H [facility] Rx#:[id number] Intake, IV Titration 100 Amount Magnesium Sulfate-D5w Pmx 100 1 gm In Dextrose/Water 1 100ml.bag @ 100 mls/hr IVPB ONCE ONE Rx#: [id number] Oral 200 Tube Feeding 200 Output: Urine 1465 885 295 Other: Voiding Method Indwelling Catheter Indwelling Catheter Indwelling Catheter # Voids 0 # Bowel Movements 4 - Exam GENERAL EXAM: Physical exam revealed 74-year-old white male in no distress, HEAD: Normocephalic/atraumatic. Dry mucous membranes noted. EYES PERRLA, EOMI, no icterus. NOSE: Clear with pink turbinates. THROAT: No erythema or exudates. NECK: Supple no neck masses no JVD.. CHEST: No chest wall deformity. Symmetrical expansion. LUNGS: Minimal fine crackles at the bases especially at the left base, no rhonch i no wheezes. CVS: Irregular rate and rhythm, normal S1 and S2, no gallops, no murmurs, no rubs, pacemaker/defibrillator later noted on the left upper chest wall area. ABDOMEN: Soft nontender no megaly no rebound EXTREMITIES: No clubbing edema or cyanosis. MUSCULOSKELETAL: Normal muscle tone, adequate strength bilaterally. SKIN: No rashes CENTRAL NERVOUS SYSTEM: Alert and oriented 3, no gross focal neurologic deficits. Psychiatric: Normal mood affect and normal mental status examination. - Labs CBC & Chem 7: 04/05/19 05:11 04/05/19 05:11 Labs: Abnormal Lab Results - Last 24 Hours (Table) 04/03/19 04/04/19 04/05/19 Range/Units 13:13 20:44 05:11 WBC (3.8-10.6) k/uL RBC (4.30-5.90) m/uL Hgb (13.0-17.5) gm/dL Hct (39.0-53.0) % MCHC (31.0-37.0) g/dL RDW (11.5-15.5) % Plt Count (150-450) k/uL Pathologist Review See comment A Sodium 135 L (137-145) mmol/L Potassium 3.4 L (3.5-5.1) mmol/L Carbon Dioxide 21 L (22-30) mmol/L Creatinine 1.68 H (0.66-1.25) mg/dL Glucose 114 H (74-99) mg/dL POC Glucose (mg/dL) 198 H (75-99) mg/dL Calcium 7.1 L (8.4-10.2) mg/dL Magnesium 1.5 L (1.6-2.3) mg/dL 04/05/19 04/05/19 04/05/19 Range/Units 05:11 07:03 11:37 WBC 67.6 H* (3.8-10.6) k/uL RBC 2.64 L (4.30-5.90) m/uL Hgb 7.2 L (13.0-17.5) gm/dL Hct 24.0 L (39.0-53.0) % MCHC 30.2 L (31.0-37.0) g/dL RDW 22.4 H (11.5-15.5) % Plt Count 62 L (150-450) k/uL Pathologist Review Sodium (137-145) mmol/L Potassium (3.5-5.1) mmol/L Carbon Dioxide (22-30) mmol/L Creatinine (0.66-1.25) mg/dL Glucose (74-99) mg/dL POC Glucose (mg/dL) 124 H 175 H (75-99) mg/dL Calcium (8.4-10.2) mg/dL Magnesium (1.6-2.3) mg/dL Microbiology - Last 24 Hours (Table) 04/02/19 23:25 Blood Culture - Preliminary Blood No Growth after 48 hours 04/03/19 23:15 Blood Culture - Preliminary Blood No Growth after 24 hours 04/04/19 07:53 Gram Stain - Preliminary Sputum Sputum Culture - Preliminary 04/03/19 18:28 Urine Culture - Final Urine,Clean Catch Assessment and Plan Assessment: Impression: 1 acute hypotension secondary to diarrhea, dehydration, intravascular volume depletion, however possibility of sepsis is not entirely ruled out considering the patient had multiple episodes of C. difficile colitis. 2 suspect some component of mild systolic congestive heart failure, patient is known to have history of LV dysfunction, fluid boluses were given on presentation, I believe the patient is developing mild CHF changes on the chest x-ray hence IV fluid is present at KVO and the patient was given Lasix. 3 acute kidney injury, could be related to hypovolemia and could be related to hypotension. 4 chronic systolic dysfunction, patient had a previous AICD placement. 5 coronary artery disease and previous non-ST segment elevation myocardial infarction and previous stenting of the circumflex. 6 history of cardiogenic pulmonary edema back in March 29. 7 multiple comorbidities including type 2 diabetes, COPD, chronic ITP, chronic anemia, 8 leukemoid reaction, possible underlying myeloproliferative disorder. We will continue to monitor his CBC and WBC count. 9 mild troponin leak 10 left lower lobe atelectasis, possible pneumonia, however clinically is felt to be less likely. Nonetheless will continue empiric antibiotics. Pro- calcitonin level was ordered, proBNP level was also ordered. His proBNP is 25,100. Pro-calcitonin is pending Recommendation: Continue present treatment plan including antibiotics empirically, patient is now on oral vancomycin and IV Zosyn, C. difficile screening has been negative in the stool, will give the patient diuretics in the form of Lasix, continue to monitor urine output, monitor his labs on a daily basis, we'll continue to monitor in the ICU for the next 24 hours, significant improvement was noted in the last 24 hours. Time with Patient: Less than 30
--- NOTE | 2019-04-05 12:52 | P.CONS ---
History of Present Illness - Reason for Consult Consult date: 04/05/19 CMML-2, MDS, ITP, Prostate cancer Requesting physician: Emily Argueta - Chief Complaint sob - History of Present Illness the patient is a 73-year-old white male, with multiple medical problems. He was initially seen in consult in 2012 for low platelet counts, which had been present since 2009, mostly in the 40-50,000 range. He had extensive workup which was negative and was is felt to have ITP. He was given a trial of steroids and IVIG without much benefit. He was asymptomatic and therefore was followed with observation, with when necessary platelet transfusions at the time of invasive procedures. After early 2015, he transferred care to Dr. Velazco at [facility], and has followed with him since. He was initially treated with Rituxan again without much response. He was seen by us when admitted in 08/13 for rectal bleeding. He was again managed with when necessary platelet transfusions for colonoscopy. the patient was admitted on 08/10/18 with acute myocardial infarction, and had a cardiac catheterization with circumflex stent placement. He had multiple consultations including cardiac shock, pneumonia, and congestive heart failure. He also had acute on chronic renal decompensation. He did improve and was transferred to the ECF. He was improving progressively, but then developed diarrhea a few days ago, with increasing frequency. He developed increasing weakness as a result and and there was therefore brought back to the ER and subsequently admitted. He was evaluated by cardiology and there was felt to be concern for underlying atrial fibrillation. The patient had been on antiplatelet therapy after stent placement. During this admission it was felt that he needed to be placed on anticoagulation due to which this consult was placed. The patient has actually been on Promacta for about a year, prescribed by Dr. Juvencio Velazco. He has tolerated that well. he is currently on a 50 mg per day dose. He has recently been admitted with WBC has been elevated with predominant neutrophilia, but significant monocytosis has also been noted intermittently. At last hospital stay he was not taking promacta as he was in ECF. Last BM in September resulted with a diagnosis CMML-2 and MDS, although since this time his blast count has been increasing and was started on Hydrea. I spoke to his primary take away attendant today, recommendaing continue promacta, start Hydrea 1000mg po Daily and restart procrit. DIAGNOSIS: ALERT BONE MARROW CORE BIOPSY, CLOT SECTION, ASPIRATE SMEARS AND TOUCH PREPARATIONS: --- HYPERCELLULAR BONE MARROW WITH MYELOMONOCYTIC AND MEGAKARYCYTIC HYPERPLASIA AND RETICULIN FIBROSIS, CONSISTENT WITH MYEDYSPLASTIC/MEYLOPROLIFERATIVE NEOPASMA (MDS/MPN), CHRONIC MYELOMONOCYTIC LEUKEMIA (CMML-2) --- BLASTS/PROMONOTYTES: 12% PERIPHERAL BLOOD: --- NEUTROPHILIA --- MONOCYTOSIS --- NORMOCYTIC-HYPOCHROMIC ANEMIA --- BLASTS/PROMONOCYTES: 4% --- LYMPHOPENIA --- THROMBOCYTOPENIA Comments: Concurrent flow cytometry ([id number]) shows markedly increased monocytes. The aspirate smears are suboptimal for evaluation due to lack of bone marrow particles and peripheral blood dilution. The promonocytes/blasts are estimated on touching imprint. Patient has been on Eltrombopag which may be associated with increases in bone marrow reticulin. However, the degree of dysplastic/ proliferative changes and monocytosis appear be beyond the drug effect or reactive etiology. Cytogenetic and molecular study for JAK2, MPL and CALR are pending. Clinical correlation is suggested. The diagnosis was discussed with Dr. WALT CARO CLINICAL HISTORY: The patient is a 73-year-old male with a history of prostate cancer, status post radiation therapy. The patient also had a history of idiopathic thrombocytopenic purpura. It is noted that the patient has had a monocytosis since October,. The patient has also had a thrombocytosis, anemia and a neutrophilia since October,. The patient's lymphocytosis is new onset as of September,. A unilateral bone marrow biopsy is requested for evaluation of monocytosis. INTERPRETATION: BONE MARROW CORE BIOPSY/ ASPIRATE CLOT SECTION: Adequacy: Adequate. Cellularity: 80-90% Erythropoiesis: Decreased Granulopoiesis: Increased. Thrombopoiesis: Megakaryocytes are increased with some cytological atypia and clustering Trabeculae: Unremarkable. IMMUNOHISTOCHEMISTRY AND SPECIAL STAIN RESULTS ANTIBODY CD34: Positive in scattered cells which do not be increased. CD117: Positive large immature cells are increased. CD71: Positive in erythroid progenitor cells which appear to be decreased CD61: Positive in megakaryocytes SPECIAL STAIN: Reticulin: Markedly increased reticulin fibers seen, MF-3 All immunohistochemical and/or chromogenic in-situ hybridization stains and appropriate controls have been reviewed by the pathologist interpreting this case. This immunohistochemical and/or chromogenic in-situ hybridization assay was developed and its performance characteristics determined by [facility]. It has not been cleared or approved by the U.S. Food and Drug Administration. The FDA has determined that such clearance is not necessary. This test is used for clinical purposes. It should not be regarded as investigational or for research only. This laboratory is certified under the Clinical Laboratory Improvement Amendments of 1988 [CLIA] as qualified to perform high complexity testing. BONE MARROW ASPIRATION (GIEMSA STAIN)/TOUCH PREPARATIONS: Adequacy: No marrow particles seen. Promonocytes/blasts are about 11%. M:E ratio: 7.4:1. Touch imprints show increased monocytes. Immature monocytes and atypical monocytes are seen. Granular precursors and neutrophils show dysplastic changes. Erythropoiesis shows mild dysplasia. Megakaryocytes are too few for evaluation and appear to be underrepresented. IRON STAINS ON CLOT SECTION AND ASPIRATE SMEAR: Storage iron: Unable to assess due to lack of particles. Ringed sideroblasts: Not seen. PERIPHERAL BLOOD (GIEMSA STAIN): White Blood Cells: Neutrophils are increased and hypogranular forms are identified. Lymphocytes are decreased and appear small and mature. Monocytes are increased with increased immature monocytes and atypical monocytes. Blasts/promonotytes are about 4%. Red Blood Cells: Normocytic-hypochromic anemia present without polychromasia. Anisocytosis is moderate. Poikilocytosis is moderate with occasional acanthocytes and ovalocytes seen. Platelets: Decreased and markedly increased giant and hypogranular forms. DIAGNOSIS: Hematology Review on 03.20.19 ALERT PERIPHERAL BLOOD: --- LEUKOCYTOSIS WITH MYELOID LEFT SHIFT, CIRCULATING BLASTS AND DYSPLASTIC FEATURES, CONSISTENT WITH PERSISTENT MYELOID NEOPLASM (SEE COMMENT) --- SEVERE NORMOCYTIC-HYPOCHROMIC ANEMIA WITH MARKED ABSOLUTE RETICULOCYTOSIS --- MARKED THROMBOCYTOPENIA --- LEUKOERYTHROBLASTIC CHANGE Comment: Features of chronic myelomonocytic leukemia persist; however, the percentage of blasts/monoblasts/promyelocytes has increased since the bone marrow biopsy in September. This raises the possibility of disease progression, however acute leukemia cannot be confirmed or excluded based on the peripheral smear findings. Bone marrow biopsy would be necessary for definitive diagnosis, if clinically indicated. CLINICAL HISTORY: The patient is a 73-year-old man who was diagnosed with chronic myelomonocytic leukemia-2 in September. At that time, blasts/promonocytes in the blood were 4%, and in the bone marrow were 12%. Since then, the patient's white count and blast count have progressively increased and the platelet count has progressively worsened. Additional past medical history includes prostate cancer, splenomegaly, CRF, diabetes and atrial fibrillation. INTERPRETATION: PERIPHERAL BLOOD (GIEMSA STAIN): White Blood Cells: There is a monocytic left shift with occasional circulating blasts. The overall blast/monoblast/promonocyte percentage is approximately 10%. There is also a granulocytic left shift with dysplastic features, including hypogranulation. Red Blood Cells: Normocytic and hypochromic with marked polychromasia. There is marked anisocytosis. Frequent ovalocytes and tear drop cells are seen. Rare schistocytes are present. nRBCs are present. Platelets: Occasional large platelets are seen, some of which are hypogranular. Review of Systems 14 point review of systems assessed and completed in all negative except for HPI Past Medical History Past Medical History: Blood Disorder, Coronary Artery Disease (CAD), Cancer, Chest Pain / Angina, Dementia, Myocardial Infarction (NH), Musculoskeletal Disorder Additional Past Medical History / Comment(s): Coronary artery disease, previous non-ST segment elevation myocardial infarction, recent hospitalization for cardiogenic shock, stenting of the circumflex artery, systolic heart failure with ejection fraction of 30-35%, prostate cancer with previous radiation therapy that he completed in March 2015, history of ITP, history of AICD placement, history of ventricular tachycardia, diabetes mellitus, ITP, history of C. diff colitis Last Myocardial Infarction Date:: 06/16/2015 History of Any Multi-Drug Resistant Organisms: None Reported Past Surgical History: AICD, Appendectomy, Cholecystectomy, Heart Catheterization With Stent, Pacemaker Additional Past Surgical History / Comment(s): Stent to the LAD 06/16/2015. CARDIOVERSION; AICD 04/26/16, [employer]. Defibrillator placement, insertion and removal of a intra-aortic balloon pump, cardiac catheterization and stenting of the circumflex in March 2018 Past Anesthesia/Blood Transfusion Reactions: No Reported Reaction Date of Last Stent Placement:: 06/16/2015 Type of Cardiac Device: AICD Device Placement Date:: 04/26/16 Past Psychological History: No Psychological Hx Reported Smoking Status: Former smoker Past Alcohol Use History: Rare Additional Past Alcohol Use History / Comment(s): QUIT SMOKING 1974 EST, UNSURE # OF YEARS. Past Drug Use History: None Reported - Past Family History Mother Family Medical History: CVA/TIA, Hypertension Father Family Medical History: No Reported History Medications and Allergies Home Medications Medication Instructions Recorded Confirmed Type Atorvastatin [Lipitor] 40 mg PO HS 04/22/16 04/02/19 History Eltrombopag Olamine [Promacta] 50 mg PO HS 10/30/17 04/02/19 History Clopidogrel [Plavix] 75 mg PO DAILY #30 tab 09/07/18 04/02/19 Rx Acetaminophen Tab [Tylenol Tab] 500 mg PO BID@1200,2100 04/02/19 04/02/19 History Calcium Polycarbophil [Fiber-Lax] 625 mg PO AC-LUNCH 04/02/19 04/02/19 History Cholecalciferol [Vitamin D3 (25 1,000 unit PO DAILY 04/02/19 04/02/19 History Mcg = 1000 Iu)] Citalopram Hydrobromide [CeleXA] 20 mg PO DAILY 04/02/19 04/02/19 History Potassium Chloride ER [K-Dur 10] 10 meq PO AC-LUNCH 04/02/19 04/02/19 History Saxagliptin HCl [Onglyza] 2.5 mg PO DAILY 04/02/19 04/02/19 History Torsemide [Demadex] 20 mg PO DAILY 04/02/19 04/02/19 History Allergies Allergy/AdvReac Type Severity Reaction Status Date / Time No Known Allergies Allergy Verified 04/02/19 21:35 Physical Exam Vitals: Vital Signs Temp Pulse Pulse Resp BP Pulse Ox 04/05/19 12:00 25 H 04/05/19 11:51 104 H 04/05/19 11:38 98 04/05/19 11:00 91 25 H 111/63 96 04/05/19 10:00 93 25 H 123/54 93 L 04/05/19 09:00 102 H 25 H 101/54 92 L 04/05/19 08:04 95 04/05/19 08:00 98.2 F 96 25 H 94/58 97 04/05/19 07:46 95 04/05/19 07:00 93 24 118/65 93 L 04/05/19 06:00 95 25 H 103/49 92 L 04/05/19 05:00 92 21 98/49 94 L 04/05/19 04:00 98.6 F 92 27 H 98/51 94 L 04/05/19 03:00 92 27 H 99/50 90 L 04/05/19 02:00 93 27 H 104/49 95 04/05/19 01:00 93 26 H 106/50 93 L 04/05/19 00:00 93 28 H 102/51 93 L 04/04/19 23:00 96 26 H 103/56 93 L 04/04/19 22:00 96 21 102/50 96 04/04/19 21:27 96 04/04/19 21:14 89 04/04/19 21:06 90 28 H 93 L 04/04/19 21:00 92 25 H 104/54 96 04/04/19 20:00 86 19 109/67 95 04/04/19 19:00 92 24 109/67 98 04/04/19 18:00 98 24 114/57 98 04/04/19 17:00 92 20 101/52 98 04/04/19 16:00 98.0 F 94 99 23 98/59 98 04/04/19 15:00 96 22 98/50 96 04/04/19 14:00 103 H 22 103/48 95 04/04/19 13:00 105 H 24 90/43 92 L Intake and Output 04/04/19 04/05/19 04/05/19 22:59 06:59 14:59 Intake Total 360 360 300 Output Total 765 570 295 Balance -405 -210 5 Intake: IV 260 260 200 Piperacillin-Tazobactam 3 100 .375 gm In Sodium Chloride 0.9% 100 ml @ 25 mls/hr IVPB Q8H [facility] Rx#: [id number] Piperacillin-Tazobactam 3 100 100 .375 gm In Sodium Chloride 0.9% 100 ml @ 25 mls/hr IVPB Q8HR [facility] Rx# :[id number] Sodium Chloride 0.9% 1, 160 160 100 000 ml @ 20 mls/hr IV . Q24H [facility] Rx#:[id number] Intake, IV Titration 100 Amount Magnesium Sulfate-D5w Pmx 100 1 gm In Dextrose/Water 1 100ml.bag @ 100 mls/hr IVPB ONCE ONE Rx#: [id number] Oral 100 100 Output: Urine 765 570 295 Other: Voiding Method Indwelling Catheter Indwelling Catheter Indwelling Catheter Weight 88.6 kg General: Alert and Oriented x3, No Acute Distress Head: Normocytic, Atraumatic Neck: Supple Mouth: No Lesions, No Thrush Eyes: Non-sclerotic No Palpable cervical, supraclavicular, axillary adenopathy Heart: Regular Rate, Regular Rhythm Lungs: Clear to Ausculations, No Wheeze, No Rhonchi, Diminishe bilateral lower lobes, No increased respiratory effort noted Abdomen: Soft, Non-Distended, Non-Tended, BSx4 Extremities: No Edema, Equal Strength Neurological: No Focal Defects: No sensory or motor deficits noted Psych: Calm and cooperative Results CBC & Chem 7: 04/05/19 05:11 04/05/19 05:11 Labs: Abnormal Lab Results - Last 24 Hours (Table) 04/03/19 04/04/19 04/05/19 Range/Units 13:13 20:44 05:11 WBC (3.8-10.6) k/uL RBC (4.30-5.90) m/uL Hgb (13.0-17.5) gm/dL Hct (39.0-53.0) % MCHC (31.0-37.0) g/dL RDW (11.5-15.5) % Plt Count (150-450) k/uL Pathologist Review See comment A Sodium 135 L (137-145) mmol/L Potassium 3.4 L (3.5-5.1) mmol/L Carbon Dioxide 21 L (22-30) mmol/L Creatinine 1.68 H (0.66-1.25) mg/dL Glucose 114 H (74-99) mg/dL POC Glucose (mg/dL) 198 H (75-99) mg/dL Calcium 7.1 L (8.4-10.2) mg/dL Magnesium 1.5 L (1.6-2.3) mg/dL 04/05/19 04/05/19 04/05/19 Range/Units 05:11 07:03 11:37 WBC 67.6 H* (3.8-10.6) k/uL RBC 2.64 L (4.30-5.90) m/uL Hgb 7.2 L (13.0-17.5) gm/dL Hct 24.0 L (39.0-53.0) % MCHC 30.2 L (31.0-37.0) g/dL RDW 22.4 H (11.5-15.5) % Plt Count 62 L (150-450) k/uL Pathologist Review Sodium (137-145) mmol/L Potassium (3.5-5.1) mmol/L Carbon Dioxide (22-30) mmol/L Creatinine (0.66-1.25) mg/dL Glucose (74-99) mg/dL POC Glucose (mg/dL) 124 H 175 H (75-99) mg/dL Calcium (8.4-10.2) mg/dL Magnesium (1.6-2.3) mg/dL Microbiology - Last 24 Hours (Table) 04/02/19 23:25 Blood Culture - Preliminary Blood No Growth after 48 hours 04/03/19 23:15 Blood Culture - Preliminary Blood No Growth after 24 hours 04/04/19 07:53 Gram Stain - Preliminary Sputum Sputum Culture - Preliminary 04/03/19 18:28 Urine Culture - Final Urine,Clean Catch Assessment and Plan Plan: Assessment and Plan ITP (idiopathic thrombocytopenic purpura) - History of ITP - The pt has responded very well to Promacta. In fact plt count is well within the normal range, despite the pt being off Promacta for about 2 wks. Pt can continue Promacta, but per dosing guidelines, dose maybe reduced to 25 mg/d. CMML-2 MDS - With WOrsening Leukocytosis and Increased Circulating blasts: - Restart home Hydrea 1000mg po Daily - Restart Epogen Anemia - Restart Epogen - Transfuse PRBC less than 7 Leukocytosis - appears to be progressing, unknown if conversion to acute leukemia at this time, increased blasts and recently started on Hydrea. Plan: - I have spoke to Dr. Wilfrido Velazco who had recently started Hydrea 1000mg po daily, continue daily promacta, and restart Epogen. - Since it is unclear if patient WBC is worsening from acute illness, and with other cytopenias will restart at 500mg hydrea daily, monitor CBC closely - Concern for conversion to acute leukemia.
--- NOTE | 2019-04-05 14:04 | P.PN ---
Subjective Progress Note Date: 04/04/19 74-year-old the male came in with leukocytosis and tachycardia patient is being treated for a possible C. diff colitis although C. diff EIA is negative chest x- ray is not impressive for pneumonia but the does have pulmonary edema on the chest x-ray patient was given a dose of Lasix patient is ejection fraction is identified 40% patient may need more Lasix repeat the chest x-ray again. Patient has significant leukocytosis is admitted for systemic inflammatory response and tachycardia. 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 Oncology was consulted. Patient does have teardrops cells as well which is consistent with mild dysplastic syndrome. Patient may need a bone marrow biopsy but this can be done as an outpatient. I'm consulting infectious disease regarding antibiotics patient is presently on Zosyn and oral vancomycin Constitutional: Denied any fatigue denied any fever. Cardio vascular: denied any chest pain, palpitations Gastrointestinal denied any nausea vomiting Pulmonary: Does have shortness of breath Neurologic denied any new focal deficits All inpatient medications were reviewed and appropriate changes in these medications as dictated in the interval history and assessment and plan. Objective - Vital Signs Vital signs: Vital Signs Temp 98.2 F 04/05/19 08:00 Pulse 104 H 04/05/19 13:00 Resp 28 H 04/05/19 13:00 BP 111/60 04/05/19 13:00 Pulse Ox 95 04/05/19 13:00 Intake & Output 04/04/19 04/05/19 04/05/19 18:59 06:59 18:59 Intake Total 775 540 300 Output Total 1465 885 295 Balance -690 -345 5 Weight 88.6 kg Intake: IV 575 340 200 Magnesium Sulfate-D5w Pmx 200 1 gm In Dextrose/Water 1 100ml.bag @ 100 mls/hr IVPB Q1H [facility] Rx#: [id number] Piperacillin-Tazobactam 3 100 .375 gm In Sodium Chloride 0.9% 100 ml @ 25 mls/hr IVPB Q8H [facility] Rx#: [id number] Piperacillin-Tazobactam 3 100 100 .375 gm In Sodium Chloride 0.9% 100 ml @ 25 mls/hr IVPB Q8HR [facility] Rx# :[id number] Sodium Chloride 0.9% 1, 275 240 100 000 ml @ 20 mls/hr IV . Q24H [facility] Rx#:[id number] Intake, IV Titration 100 Amount Magnesium Sulfate-D5w Pmx 100 1 gm In Dextrose/Water 1 100ml.bag @ 100 mls/hr IVPB ONCE ONE Rx#: [id number] Oral 200 Tube Feeding 200 Output: Urine 1465 885 295 Other: Voiding Method Indwelling Catheter Indwelling Catheter Indwelling Catheter # Voids 0 # Bowel Movements 4 - Exam -GENERAL: The patient is alert and oriented x3, not in any acute distress. Generally weak and pale HEENT: Pupils are round and equally reacting to light. EOMI. No scleral icterus. No conjunctival pallor. Normocephalic, atraumatic. No pharyngeal erythema. No thyromegaly. CARDIOVASCULAR: S1 and S2 present. No murmurs, rubs, or gallops. PULMONARY: Chest is clear to auscultation, no wheezing or crackles. ABDOMEN: Soft, nontender, nondistended, normoactive bowel sounds. No palpable organomegaly. MUSCULOSKELETAL: No joint swelling or deformity. EXTREMITIES: No cyanosis, clubbing, or pedal edema. NEUROLOGICAL: Gross neurological examination did not reveal any focal deficits. SKIN: No rashes. - Labs CBC & Chem 7: 04/05/19 05:11 04/05/19 05:11 Labs: Abnormal Lab Results - Last 24 Hours (Table) 04/03/19 04/04/19 04/05/19 Range/Units 13:13 20:44 05:11 WBC (3.8-10.6) k/uL RBC (4.30-5.90) m/uL Hgb (13.0-17.5) gm/dL Hct (39.0-53.0) % MCHC (31.0-37.0) g/dL RDW (11.5-15.5) % Plt Count (150-450) k/uL Pathologist Review See comment A Sodium 135 L (137-145) mmol/L Potassium 3.4 L (3.5-5.1) mmol/L Carbon Dioxide 21 L (22-30) mmol/L Creatinine 1.68 H (0.66-1.25) mg/dL Glucose 114 H (74-99) mg/dL POC Glucose (mg/dL) 198 H (75-99) mg/dL Calcium 7.1 L (8.4-10.2) mg/dL Magnesium 1.5 L (1.6-2.3) mg/dL 04/05/19 04/05/19 04/05/19 Range/Units 05:11 07:03 11:37 WBC 67.6 H* (3.8-10.6) k/uL RBC 2.64 L (4.30-5.90) m/uL Hgb 7.2 L (13.0-17.5) gm/dL Hct 24.0 L (39.0-53.0) % MCHC 30.2 L (31.0-37.0) g/dL RDW 22.4 H (11.5-15.5) % Plt Count 62 L (150-450) k/uL Pathologist Review Sodium (137-145) mmol/L Potassium (3.5-5.1) mmol/L Carbon Dioxide (22-30) mmol/L Creatinine (0.66-1.25) mg/dL Glucose (74-99) mg/dL POC Glucose (mg/dL) 124 H 175 H (75-99) mg/dL Calcium (8.4-10.2) mg/dL Magnesium (1.6-2.3) mg/dL Microbiology - Last 24 Hours (Table) 04/02/19 23:25 Blood Culture - Preliminary Blood No Growth after 48 hours 04/03/19 23:15 Blood Culture - Preliminary Blood No Growth after 24 hours 04/04/19 07:53 Gram Stain - Preliminary Sputum Sputum Culture - Preliminary 04/03/19 18:28 Urine Culture - Final Urine,Clean Catch Assessment and Plan Plan: - Systemic inflammatory response syndrome: I didn't see any significant evidence of infection at this time all his symptoms are probably because of CML and conversion to acute myeloid leukemia for which patient may need a bone marrow biopsy. Infectious disease was consulted patient is presently on Zosyn for possibility of pneumonia. -Acute hypoxic respiratory failure secondary to CHF exacerbation most probably we'll obtain a BNP patient received a dose of Lasix patient's ejection fraction was 30-35% patient has chronic systolic dysfunction. -Acute kidney injury secondary to congestive heart failure prerenal azotemia. 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
--- NOTE | 2019-04-05 14:08 | P.PN ---
Subjective 74-year-old the male came in with leukocytosis and tachycardia patient is being treated for a possible C. diff colitis although C. diff EIA is negative chest x- ray is not impressive for pneumonia but the does have pulmonary edema on the chest x-ray patient was given a dose of Lasix patient is ejection fraction is identified 40% patient may need more Lasix repeat the chest x-ray again. Patient has significant leukocytosis is admitted for systemic inflammatory response and tachycardia. 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 Oncology was consulted. Patient does have teardrops cells as well which is consistent with mild dysplastic syndrome. Patient may need a bone marrow biopsy but this can be done as an outpatient. I'm consulting infectious disease regarding antibiotics patient is presently on Zosyn and oral vancomycin. 04/05/2019 Patient has multiple episodes of C. diff because of her continued diarrhea infectious disease ordered C. diff for DNA PCR testing. Although his diarrhea i s possibly secondary to antibiotics Zosyn. Patient appears to have congestive heart failure his blood pressures better today because of which I'll start him on Lasix IV twice a day patient is bit tachycardic and saturating at 92% on 3 L of onset doesn't get any oxygen at home. 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 No fevers at this time. She was evaluated by hematology patient the recommendations. Patient will transfer out of ICU to Medr floor his respiratory status improves patient can be discharged tomorrow we'll obtain physical therapy and occupational therapy evaluation Constitutional: Denied any fatigue denied any fever. Cardio vascular: denied any chest pain, palpitations Gastrointestinal denied any nausea vomiting Pulmonary: Does have shortness of breath Neurologic denied any new focal deficits All inpatient medications were reviewed and appropriate changes in these medications as dictated in the interval history and assessment and plan. Objective - Vital Signs Vital signs: Vital Signs Temp 98.2 F 04/05/19 08:00 Pulse 104 H 04/05/19 13:00 Resp 28 H 04/05/19 13:00 BP 111/60 04/05/19 13:00 Pulse Ox 95 04/05/19 13:00 Intake & Output 04/04/19 04/05/1919 18:59 06:59 18:59 Intake Total 775 540 300 Output Total 1465 885 295 Balance -690 -345 5 Weight 88.6 kg Intake: IV 575 340 200 Magnesium Sulfate-D5w Pmx 200 1 gm In Dextrose/Water 1 100ml.bag @ 100 mls/hr IVPB Q[facility]H [facility] Rx#: [id number] Piperacillin-Tazobactam 3 100 .375 gm In Sodium Chloride 0.9% 100 ml @ 25 mls/hr IVPB Q8H [facility] Rx#: [id number] Piperacillin-Tazobactam 3 100 100 .375 gm In Sodium Chloride 0.9% 100 ml @ 25 mls/hr IVPB Q8HR [facility] Rx# :[id number] Sodium Chloride 0.9% 1, 275 240 100 000 ml @ 20 mls/hr IV . Q24H [facility] Rx#:[id number] Intake, IV Titration 100 Amount Magnesium Sulfate-D5w Pmx 100 1 gm In Dextrose/Water 1 100ml.bag @ 100 mls/hr IVPB ONCE ONE Rx#: [id number] Oral 200 Tube Feeding 200 Output: Urine 1465 885 295 Other: Voiding Method Indwelling Catheter Indwelling Catheter Indwelling Catheter # Voids 0 # Bowel Movements 4 - Exam -GENERAL: The patient is alert and oriented x3, not in any acute distress. Generally weak and pale HEENT: Pupils are round and equally reacting to light. EOMI. No scleral icterus. No conjunctival pallor. Normocephalic, atraumatic. No pharyngeal erythema. No thyromegaly. CARDIOVASCULAR: S1 and S2 present. No murmurs, rubs, or gallops. PULMONARY: Chest is clear to auscultation, no wheezing or crackles. ABDOMEN: Soft, nontender, nondistended, normoactive bowel sounds. No palpable organomegaly. MUSCULOSKELETAL: No joint swelling or deformity. EXTREMITIES: No cyanosis, clubbing, or pedal edema. NEUROLOGICAL: Gross neurological examination did not reveal any focal deficits. SKIN: No rashes. - Labs CBC & Chem 7: 04/05/19 05:11 04/05/19 05:11 Labs: Abnormal Lab Results - Last 24 Hours (Table) 04/03/19 04/04/19 04/05/19 Range/Units 13:13 20:44 05:11 WBC (3.8-10.6) k/uL RBC (4.30-5.90) m/uL Hgb (13.0-17.5) gm/dL Hct (39.0-53.0) % MCHC (31.0-37.0) g/dL RDW (11.5-15.5) % Plt Count (150-450) k/uL Pathologist Review See comment A Sodium 135 L (137-145) mmol/L Potassium 3.4 L (3.5-5.1) mmol/L Carbon Dioxide 21 L (22-30) mmol/L Creatinine 1.68 H (0.66-1.25) mg/dL Glucose 114 H (74-99) mg/dL POC Glucose (mg/dL) 198 H (75-99) mg/dL Calcium 7.1 L (8.4-10.2) mg/dL Magnesium 1.5 L (1.6-2.3) mg/dL 04/05/19 04/05/19 04/05/19 Range/Units 05:11 07:03 11:37 WBC 67.6 H* (3.8-10.6) k/uL RBC 2.64 L (4.30-5.90) m/uL Hgb 7.2 L (13.0-17.5) gm/dL Hct 24.0 L (39.0-53.0) % MCHC 30.2 L (31.0-37.0) g/dL RDW 22.4 H (11.5-15.5) % Plt Count 62 L (150-450) k/uL Pathologist Review Sodium (137-145) mmol/L Potassium (3.5-5.1) mmol/L Carbon Dioxide (22-30) mmol/L Creatinine (0.66-1.25) mg/dL Glucose (74-99) mg/dL POC Glucose (mg/dL) 124 H 175 H (75-99) mg/dL Calcium (8.4-10.2) mg/dL Magnesium (1.6-2.3) mg/dL Microbiology - Last 24 Hours (Table) 04/02/19 23:25 Blood Culture - Preliminary Blood No Growth after 48 hours 04/03/19 23:15 Blood Culture - Preliminary Blood No Growth after 24 hours 04/04/19 07:53 Gram Stain - Preliminary Sputum Sputum Culture - Preliminary 04/03/19 18:28 Urine Culture - Final Urine,Clean Catch Assessment and Plan Plan: - Systemic inflammatory response syndrome: I didn't see any significant evidence of infection at this time all his symptoms are probably because of CML and conversion to acute myeloid leukemia for which patient may need a bone marrow biopsy. Infectious disease was consulted patient is presently on Zosyn for possibility of pneumonia. -Acute hypoxic respiratory failure secondary to CHF exacerbation patient was started on IV Lasix patient's ejection fraction was 30-35% patient has chronic systolic dysfunction. -Acute kidney injury secondary to congestive heart failure prerenal azotemia. 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
[2019-04-05] MEDS: FUROSEMIDE 10 MG/ML 4 ML VIAL IV SCH (15:13)
[2019-04-05] MEDS: SODIUM CHLORIDE 0.9% 1,000 ML IV SCH (15:17)
--- NOTE | 2019-04-05 15:29 | P.PN ---
Subjective Patient looks comfortable. His heart rates are better. He has no chest discomfort no dizziness lightheadedness or palpitations he is resting comfo rtably in a chair Blood pressure 111/60 mmHg respirations 18-20 pulse rate 100, afebrile Normal heart sounds regular Breath sounds are clear no rhonchi no crackles abdomen is soft Impression Hyportension secondary to dehydration secondary to persistent diarrhea Known cardiac myopathy Suggest cautious IV hydration and by mouth hydration impression Continuation of cardiac medications once his blood pressure normalizes We'll sign off at this time please call us as needed Once patient's blood pressure normalizes he should go back on all his cardiac medications Objective - Vital Signs Vital signs: Vital Signs Temp 97.8 F 04/05/19 15:00 Pulse 101 H 04/05/19 15:00 Resp 23 04/05/19 15:00 BP 100/43 04/05/19 15:00 Pulse Ox 95 04/05/19 15:00 Intake & Output 04/04/19 04/05/19 04/05/19 18:59 06:59 18:59 Intake Total 775 540 380 Output Total 1465 885 520 Balance -690 -345 -140 Weight 88.6 kg Intake: IV 575 340 280 Magnesium Sulfate-D5w Pmx 200 1 gm In Dextrose/Water 1 100ml.bag @ 100 mls/hr IVPB Q1H [facility] Rx#: [id number] Piperacillin-Tazobactam 3 100 .375 gm In Sodium Chloride 0.9% 100 ml @ 25 mls/hr IVPB Q8H [facility] Rx#: [id number] Piperacillin-Tazobactam 3 100 100 .375 gm In Sodium Chloride 0.9% 100 ml @ 25 mls/hr IVPB Q8HR [facility] Rx# :[id number] Sodium Chloride 0.9% 1, 275 240 180 000 ml @ 20 mls/hr IV . Q24H [facility] Rx#:[id number] Intake, IV Titration 100 Amount Magnesium Sulfate-D5w Pmx 100 1 gm In Dextrose/Water 1 100ml.bag @ 100 mls/hr IVPB ONCE ONE Rx#: [id number] Oral 200 Tube Feeding 200 Output: Urine 1465 885 520 Other: Voiding Method Indwelling Catheter Indwelling Catheter Indwelling Catheter # Voids 0 # Bowel Movements 4 - Labs CBC & Chem 7: 04/05/19 05:11 04/05/19 05:11 Labs: Abnormal Lab Results - Last 24 Hours (Table) 04/03/19 04/04/19 04/05/19 Range/Units 13:13 20:44 05:11 WBC (3.8-10.6) k/uL RBC (4.30-5.90) m/uL Hgb (13.0-17.5) gm/dL Hct (39.0-53.0) % MCHC (31.0-37.0) g/dL RDW (11.5-15.5) % Plt Count (150-450) k/uL Pathologist Review See comment A Sodium 135 L (137-145) mmol/L Potassium 3.4 L (3.5-5.1) mmol/L Carbon Dioxide 21 L (22-30) mmol/L Creatinine 1.68 H (0.66-1.25) mg/dL Glucose 114 H (74-99) mg/dL POC Glucose (mg/dL) 198 H (75-99) mg/dL Calcium 7.1 L (8.4-10.2) mg/dL Magnesium 1.5 L (1.6-2.3) mg/dL 04/05/19 04/05/19 04/05/19 Range/Units 05:11 07:03 11:37 WBC 67.6 H* (3.8-10.6) k/uL RBC 2.64 L (4.30-5.90) m/uL Hgb 7.2 L (13.0-17.5) gm/dL Hct 24.0 L (39.0-53.0) % MCHC 30.2 L (31.0-37.0) g/dL RDW 22.4 H (11.5-15.5) % Plt Count 62 L (150-450) k/uL Pathologist Review Sodium (137-145) mmol/L Potassium (3.5-5.1) mmol/L Carbon Dioxide (22-30) mmol/L Creatinine (0.66-1.25) mg/dL Glucose (74-99) mg/dL POC Glucose (mg/dL) 124 H 175 H (75-99) mg/dL Calcium (8.4-10.2) mg/dL Magnesium (1.6-2.3) mg/dL Microbiology - Last 24 Hours (Table) 04/02/19 23:25 Blood Culture - Preliminary Blood No Growth after 48 hours 04/03/19 23:15 Blood Culture - Preliminary Blood No Growth after 24 hours 04/04/19 07:53 Gram Stain - Preliminary Sputum Sputum Culture - Preliminary 04/03/19 18:28 Urine Culture - Final Urine,Clean Catch
[2019-04-05 16:56] LABS: Glucose,Whole Blood 179 mg/dL (75-99)
--- NOTE | 2019-04-05 19:34 | PN ---
PROGRESS NOTE DATE OF SERVICE: 04/05/2019 REASON FOR FOLLOWUP: Pneumonia. INTERVAL HISTORY: The patient is currently afebrile. The patient has been breathing more comfortably. He did have some cough, occasional sputum. No chest pain. No abdominal pain. Still has some diarrhea, but no worsening. PHYSICAL EXAMINATION: Blood pressure 100/43, pulse of 94, temperature 97.8. He is 95% 3 L nasal cannula. General description is an elderly male up in the bed in no distress. RESPIRATORY SYSTEM: Unlabored breathing with decreased intensity of breath sounds. No wheeze. HEART: S1, S2. Regular rate and rhythm. ABDOMEN: Soft. No tenderness. LABS: Hemoglobin 7.2, white count of 67.6. BUN of 17, creatinine 1.68. Stool for C difficile PCR has been negative. DIAGNOSTIC IMPRESSION AND PLAN: Patient with a fever, cough, with left lower lobe infiltrate likely pneumonia. The patient is clinically responding to Zosyn; to continue. Blood and sputum cultures will be followed to narrow down antibiotics. Continue with supportive care. MMODL / IJN: [id number] /
[2019-04-05 19:57] LABS: Glucose,Whole Blood 164 mg/dL (75-99)
[2019-04-05] MEDS ORDERED: DARBEPOETIN ALFA 100MCG/0.5ML SYRINGE SQ SCH (20:15)
[2019-04-05] MEDS: ATORVASTATIN 40 MG TAB PO SCH (20:46)
[2019-04-05] MEDS: PROMACTA 50 MG PO SCH (20:46)
[2019-04-05] MEDS: HYDROXYUREA 500 MG CAP PO SCH (20:51)
[2019-04-06] MEDS: FUROSEMIDE 10 MG/ML 4 ML VIAL IV SCH ×3 (00:01→20:40)
[2019-04-06] MEDS: PIPERACILLIN-TAZOBACTAM 3.375 GM in SODIUM CHLORIDE 0.9% 100 ML IVPB SCH ×2 (00:27→09:26)
[2019-04-06 07:01] LABS: Glucose,Whole Blood 134 mg/dL (75-99)
[2019-04-06 07:39] LABS: Anisocytosis Moderate; HCT 26.8 % (39.0-53.0); HGB 8.1 gm/dL (13.0-17.5); Hypochromasia Marked; MCH 27.1 pg (25.0-35.0); MCHC 30.4 g/dL (31.0-37.0); MCV 89.3 fL (80.0-100.0); Macrocytosis Slight; Mean Platelet Volume 13.1; Microcytosis Slight; Poikilocytosis Moderate; RDW 22.9 % (11.5-15.5)
[2019-04-06 07:54] LABS: Albumin 2.9 g/dL (3.5-5.0); Calcium 7.3 mg/dL (8.4-10.2); Potassium 3.8 mmol/L (3.5-5.1); Total Bilirubin 1.1 mg/dL (0.2-1.3); Total Protein 6.2 g/dL (6.3-8.2)
[2019-04-06 08:26] LABS: Platelet Count 75 k/uL (150-450)
[2019-04-06] MEDS: INSULIN ASPART (NovoLOG) 100 UNIT/ML VIAL SQ SCH ×4 (08:36→20:40)
[2019-04-06] MEDS: IPRATROPIUM-ALBUTEROL 3 ML NEB INHALATION SCH ×4 (08:39→21:53)
[2019-04-06] MEDS: HYDROXYUREA 500 MG CAP PO SCH ×2 (08:48→22:11)
[2019-04-06] MEDS: PANTOPRAZOLE 40 MG TABLET PO SCH (08:48)
[2019-04-06] MEDS: CITALOPRAM HYDROBROMIDE 20 MG TAB PO SCH (08:48)
[2019-04-06] MEDS: POTASSIUM CHLORIDE ER 10 MEQ TAB.ER.PRT PO SCH (08:48)
[2019-04-06] MEDS: CHOLECALCIFEROL 1,000 UNIT TAB PO SCH (08:48)
[2019-04-06] MEDS: SODIUM CHLORIDE 0.9% 1,000 ML IV SCH ×2 (09:28→17:27)
[2019-04-06 11:03] LABS: Band Neutrophils % 12 %; Metamyelocytes % 1 %; Myelocytes % 1 %; Neutrophils % (M) 32 %
[2019-04-06 11:04] LABS: Blast Cells # (M) 1.81 k/uL (0); Eosinophils # (M) 1.81 k/uL (0-0.7); Lymphocytes # (M) 7.23 k/uL (1.0-4.8); Monocytes # (M) 40.68 k/uL (0-1.0); Nucleated Red Blood Cells 3 /100 WBC (0-0); Total Cells Counted 200; WBC 90.4 k/uL (3.8-10.6)
[2019-04-06 11:08] LABS: Polychromasia Present
[2019-04-06 11:19] LABS: Glucose,Whole Blood 149 mg/dL (75-99)
--- NOTE | 2019-04-06 12:48 | P.PN ---
Subjective Progress Note Date: 04/06/19 Principal diagnosis: Acute hypotension, intravascular volume depletion, dehydration This is a 74-year-old male patient who came into the emergency department yesterday with hypotension, tachycardia diarrhea and dehydration. The patient was found to have an acute kidney injury with a creatinine was at 1.8 and his previous creatinine from August 2018 was 1.2.. Lactic acidosis which was as high as 5.3 which came down to 2.3 after being given a total of 37 IV fluids. The patient received a total of 2 L normal saline and started on normal saline infusion at 75 mL an hour and no pressors was used. The chest x-ray shows a limited left lower lobe pulmonary infiltration. No eye tach on is quite elevated at 90,000 and it's declining down to 70,000.This patient is known to me. Of taking care of him on previous admission. He is known to have coronary artery disease and he has been involved in a previous non-ST segment elevation myocardial infarction back in 2017. At that time the patient had a complex cardiac catheterization and stenting during which she also required intra-aortic balloon pump insertion. He did well and he was given a stent in his circumflex artery. The balloon was removed and the patient went to rehabilitation. Note that he also has history of congestion heart failure with systolic dysfunction and ejection fraction of 35-40% and he also has history of ITP, AICD in place, diverticulosis, chronic anemia, osteoarthritis and previous history of C. diff. Note that following this admission, the patient was admitted to [facility] for a urine checked infection was discharged from the approximately a week ago after being given IV antibiotics. He was having loose/liquidy stools about 3-4 times a day and obviously this raises the concern for C. diff colitis. I started the patient on a combination of oral vancomycin and IV Zosyn pending further cultures and stool evaluation. Patient was reevaluated today on 04/04/2019, patient presented with hypotension tachycardia diarrhea and dehydration, patient was given fluids, started on antibiotics empirically, seems to be feeling a bit better today. However he is developing a bit of a cough, and his chest x-ray is showing some component of mild interstitial edema. Patient is known to have history of LV dysfunction, his ejection fraction is normally about 35%. Hence I recommended a dose of Lasix 40 mg IV push was given, I have The patient on the same antibiotics as initially given by Dr. Yi. Hemodynamically, the patient is stable, his urine output is reasonable. WBC count is down to 68.2 from 90,000 on presentation, electrolytes and renal profile were noted, creatinine is down to 1.75, bicarb is 20, patient is presently off bicarb drip. Remains on broad-spectrum antibiotics. All his meds were reviewed, he is on atorvastatin, vitamin D, Celexa, Lasix, albuterol with Atrovent updrafts, melatonin, Narcan, Protonix, Zosyn, potassium, and vancomycin. IV fluid is now at KVO. Patient is also on Promacta for chronic ITP. Patient was reevaluated today on 04/15/2019, patient is feeling much better, he is hemodynamically stable, chest x-ray showed evidence of mild interstitial edema, left lower lobe atelectasis, possible underlying infiltrate in the left lower lobe, however clinically the patient does not have symptoms to suggest pneumonia. Patient is not requiring any pressors, remains empirically on antibiotics, and he remains on diuretics, DuoNeb updrafts, continues to have diarrhea with black stools noted. Patient has a fecal management system in place. The patient is seen today 04/06/2019 in follow-up on the regular medical floor. He is awake and alert in no acute distress. Resting fairly comfortably in bed. He is maintaining O2 saturations in the 90s on 2 L/m per nasal cannula. He has developed a rash over his chest and upper extremities. He's been afebrile. Hemodynamically stable. Blood cultures reveal no growth. Urine culture reveals no growth. Sputum culture reveals no growth. White count is up to 90. Hemoglobin 8.1. Platelets 75,000. Blast cells elevated. There is concern with possible conversion to AML. 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 He is on Hydrea and Epogen. Objective - Vital Signs Vital signs: Vital Signs Temp 97.8 F 04/06/19 11:33 Pulse 84 04/06/19 12:23 Resp 17 04/06/19 11:33 BP 101/55 04/06/19 11:33 Pulse Ox 91 L 04/06/19 11:33 Intake & Output 04/05/19 04/06/19 04/06/19 18:59 06:59 18:59 Intake Total 520 1160 Output Total 1020 1100 Balance -500 60 Intake: IV 420 340 Piperacillin-Tazobactam 3 200 100 .375 gm In Sodium Chloride 0.9% 100 ml @ 25 mls/hr IVPB Q8HR [facility] Rx# :[id number] Sodium Chloride 0.9% 1, 220 240 000 ml @ 20 mls/hr IV . Q24H [facility] Rx#:[id number] Intake, IV Titration 100 100 Amount Magnesium Sulfate-D5w Pmx 100 1 gm In Dextrose/Water 1 100ml.bag @ 100 mls/hr IVPB ONCE ONE Rx#: [id number] Piperacillin-Tazobactam 3 100 .375 gm In Sodium Chloride 0.9% 100 ml @ 25 mls/hr IVPB Q8HR [facility] Rx# :[id number] Oral 720 Output: Urine 1020 800 Stool 300 Other: Voiding Method Indwelling Catheter Indwelling Catheter Indwelling Catheter - Exam GENERAL EXAM: Physical exam revealed 74-year-old white male in no acute distress, on 2 L nasal cannula HEAD: Normocephalic/atraumatic. Dry mucous membranes noted. EYES PERRLA, EOMI, no icterus. NOSE: Clear with pink turbinates. THROAT: No erythema or exudates. NECK: Supple no neck masses no JVD.. CHEST: No chest wall deformity. Symmetrical expansion. LUNGS: Minimal fine crackles at the bases especially at the left base, no rhonchi no wheezes. CVS: Irregular rate and rhythm, normal S1 and S2, no gallops, no murmurs, no rubs, pacemaker/defibrillator later noted on the left upper chest wall area. ABDOMEN: Soft nontender no megaly no rebound EXTREMITIES: No clubbing edema or cyanosis. MUSCULOSKELETAL: Normal muscle tone, adequate strength bilaterally. SKIN: Rash on the trunk and upper extremities. CENTRAL NERVOUS SYSTEM: Alert and oriented 3, no gross focal neurologic deficits. Psychiatric: Normal mood affect and normal mental status examination. - Labs CBC & Chem 7: 04/06/19 07:03 04/06/19 07:03 Labs: Abnormal Lab Results - Last 24 Hours (Table) 04/05/19 04/05/19 04/05/19 Range/Units 05:11 16:45 19:56 WBC (3.8-10.6) k/uL RBC (4.30-5.90) m/uL Hgb (13.0-17.5) gm/dL Hct (39.0-53.0) % MCHC (31.0-37.0) g/dL RDW (11.5-15.5) % Plt Count (150-450) k/uL Blast Cells % % Neutrophils # (Manual) (1.3-7.7) k/uL Lymphocytes # (Manual) (1.0-4.8) k/uL Monocytes # (Manual) (0-1.0) k/uL Eosinophils # (Manual) (0-0.7) k/uL Metamyelocytes # (Man) (0) k/uL Myelocytes # (Manual) (0) k/uL Blast Cells # (Man) (0) k/uL Nucleated RBCs (0-0) /100 WBC Sodium (137-145) mmol/L Carbon Dioxide (22-30) mmol/L Creatinine (0.66-1.25) mg/dL Glucose (74-99) mg/dL POC Glucose (mg/dL) 179 H 164 H (75-99) mg/dL Calcium (8.4-10.2) mg/dL AST (17-59) U/L Alkaline Phosphatase (38-126) U/L Total Protein (6.3-8.2) g/dL Albumin (3.5-5.0) g/dL Procalcitonin 2.22 H (0.02-0.09) ng/mL 04/06/19 04/06/19 04/06/19 Range/Units 07:01 07:03 07:03 WBC 90.4 H* (3.8-10.6) k/uL RBC 3.00 L (4.30-5.90) m/uL Hgb 8.1 L (13.0-17.5) gm/dL Hct 26.8 L (39.0-53.0) % MCHC 30.4 L (31.0-37.0) g/dL RDW 22.9 H (11.5-15.5) % Plt Count 75 L (150-450) k/uL Blast Cells % 2 H* % Neutrophils # (Manual) 39.70 H (1.3-7.7) k/uL Lymphocytes # (Manual) 7.23 H (1.0-4.8) k/uL Monocytes # (Manual) 40.68 H (0-1.0) k/uL Eosinophils # (Manual) 1.81 H (0-0.7) k/uL Metamyelocytes # (Man) 0.90 H (0) k/uL Myelocytes # (Manual) 0.90 H (0) k/uL Blast Cells # (Man) 1.81 H (0) k/uL Nucleated RBCs 3 H (0-0) /100 WBC Sodium 136 L (137-145) mmol/L Carbon Dioxide 20 L (22-30) mmol/L Creatinine 1.62 H (0.66-1.25) mg/dL Glucose 122 H (74-99) mg/dL POC Glucose (mg/dL) 134 H (75-99) mg/dL Calcium 7.3 L (8.4-10.2) mg/dL AST 60 H (17-59) U/L Alkaline Phosphatase 148 H (38-126) U/L Total Protein 6.2 L (6.3-8.2) g/dL Albumin 2.9 L (3.5-5.0) g/dL Procalcitonin (0.02-0.09) ng/mL 04/06/19 Range/Units 11:17 WBC (3.8-10.6) k/uL RBC (4.30-5.90) m/uL Hgb (13.0-17.5) gm/dL Hct (39.0-53.0) % MCHC (31.0-37.0) g/dL RDW (11.5-15.5) % Plt Count (150-450) k/uL Blast Cells % % Neutrophils # (Manual) (1.3-7.7) k/uL Lymphocytes # (Manual) (1.0-4.8) k/uL Monocytes # (Manual) (0-1.0) k/uL Eosinophils # (Manual) (0-0.7) k/uL Metamyelocytes # (Man) (0) k/uL Myelocytes # (Manual) (0) k/uL Blast Cells # (Man) (0) k/uL Nucleated RBCs (0-0) /100 WBC Sodium (137-145) mmol/L Carbon Dioxide (22-30) mmol/L Creatinine (0.66-1.25) mg/dL Glucose (74-99) mg/dL POC Glucose (mg/dL) 149 H (75-99) mg/dL Calcium (8.4-10.2) mg/dL AST (17-59) U/L Alkaline Phosphatase (38-126) U/L Total Protein (6.3-8.2) g/dL Albumin (3.5-5.0) g/dL Procalcitonin (0.02-0.09) ng/mL Microbiology - Last 24 Hours (Table) 04/04/19 07:53 Gram Stain - Final Sputum Sputum Culture - Final 04/02/19 23:25 Blood Culture - Preliminary Blood No Growth after 72 hours 04/03/19 23:15 Blood Culture - Preliminary Blood No Growth after 48 hours Assessment and Plan Assessment: Impression: 1 acute hypotension secondary to diarrhea, dehydration, intravascular volume depletion, however possibility of sepsis is not entirely ruled out considering the patient had multiple episodes of C. difficile colitis. C. difficile toxin screens negative 2 this admission. Recovered. Hemodynamically stable currently. 2 suspect some component of mild systolic congestive heart failure, patient is known to have history of LV dysfunction, fluid boluses were given on presentation, the patient is developing mild CHF changes on the chest x-ray hence IV fluid is present at KVO and the patient was started on Lasix 40 mg IV push every 12 hours 3 acute kidney injury, could be related to hypovolemia and could be related to hypotension. 4 chronic systolic dysfunction, patient had a previous AICD placement. 5 coronary artery disease and previous non-ST segment elevation myocardial infarction and previous stenting of the circumflex. 6 history of cardiogenic pulmonary edema back in March 29. 7 multiple comorbidities including type 2 diabetes, COPD, chronic ITP, chronic anemia, 8 leukemoid reaction, possible underlying myeloproliferative disorder. We will continue to monitor his CBC and WBC count. 9 mild troponin leak 10 left lower lobe atelectasis, possible pneumonia, however clinically is felt to be less likely. Pro-calcitonin 2.22. 11 history of chronic myelomonocytic leukemia with some concern regarding possible AML. Plan: The patient was seen and evaluated by Dr. Novak. He did discontinue the Zosyn due to the patient's new onset rash. Started on IV Solu-Medrol. Currently hemodynamically stable. White count 90.4. Oncology is on the case. Currently on Promacta, Hydrea. We will continue to follow make further recommendations based on his clinical status. I, the cosigning physician, performed a history & physical examination of the patient. Lungs sounds with crackles in the left lower base. Maintaining good O2 saturations in the 90s on 2 L/m per nasal cannula. I discussed the assessment and plan of care with my nurse practitioner, Giovana Samuels. I attest to the above note as dictated by her.
[2019-04-06] MEDS ORDERED: LEVOFLOXACIN 500 MG TAB PO ONE (13:00)
--- NOTE | 2019-04-06 13:00 | P.PN ---
Subjective 74-year-old the male came in with leukocytosis and tachycardia patient is being treated for a possible C. diff colitis although C. diff EIA is negative chest x- ray is not impressive for pneumonia but the does have pulmonary edema on the chest x-ray patient was given a dose of Lasix patient is ejection fraction is identified 40% patient may need more Lasix repeat the chest x-ray again. Patient has significant leukocytosis is admitted for systemic inflammatory response and tachycardia. 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 Oncology was consulted. Patient does have teardrops cells as well which is consistent with mild dysplastic syndrome. Patient may need a bone marrow biopsy but this can be done as an outpatient. I'm consulting infectious disease regarding antibiotics patient is presently on Zosyn and oral vancomycin. 04/05/2019 Patient has multiple episodes of C. diff because of her continued diarrhea infectious disease ordered C. diff for DNA PCR testing. Although his diarrhea i s possibly secondary to antibiotics Zosyn. Patient appears to have congestive heart failure his blood pressures better today because of which I'll start him on Lasix IV twice a day patient is bit tachycardic and saturating at 92% on 3 L of onset doesn't get any oxygen at home. 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 No fevers at this time. She was evaluated by hematology patient the recommendations. Patient will transfer out of ICU to Medr floor his respiratory status improves patient can be discharged tomorrow we'll obtain physical therapy and occupational therapy evaluation 04/06/2019 Patient is ready status improved patient has a rash appears to be mostly maculopapular and ALLERGIC only present in both arms doesn't appear to be petechial but the possibility of petechial rash from thrombocytopenia cannot be completely excluded. Anyways patient Zosyn is being this can you because of this rash and patient doesn't have any evidence of infection at this time. Leukocytosis appears to be secondary to CML and mostly has a malaise or patient the need to subacute rehabilitation prognosis is extremely poor testing his age minor dysplastic syndrome and possibility of acute myeloid leukemia. Patient is still requiring oxygen Constitutional: Denied any fatigue denied any fever. Cardio vascular: denied any chest pain, palpitations Gastrointestinal denied any nausea vomiting Pulmonary: Does have shortness of breath Neurologic denied any new focal deficits All inpatient medications were reviewed and appropriate changes in these medications as dictated in the interval history and assessment and plan. Objective - Vital Signs Vital signs: Vital Signs Temp 97.8 F 04/06/19 11:33 Pulse 84 04/06/19 12:23 Resp 17 04/06/19 11:33 BP 101/55 04/06/19 11:33 Pulse Ox 91 L 04/06/19 11:33 Intake & Output 04/05/19 04/06/19 04/06/19 18:59 06:59 18:59 Intake Total 520 1160 Output Total 1020 1100 Balance -500 60 Intake: IV 420 340 Piperacillin-Tazobactam 3 200 100 .375 gm In Sodium Chloride 0.9% 100 ml @ 25 mls/hr IVPB Q8HR [facility] Rx# :[id number] Sodium Chloride 0.9% 1, 220 240 000 ml @ 20 mls/hr IV . Q24H [facility] Rx#:[id number] Intake, IV Titration 100 100 Amount Magnesium Sulfate-D5w Pmx 100 1 gm In Dextrose/Water 1 100ml.bag @ 100 mls/hr IVPB ONCE ONE Rx#: [id number] Piperacillin-Tazobactam 3 100 .375 gm In Sodium Chloride 0.9% 100 ml @ 25 mls/hr IVPB Q8HR [facility] Rx# :[id number] Oral 720 Output: Urine 1020 800 Stool 300 Other: Voiding Method Indwelling Catheter Indwelling Catheter Indwelling Catheter - Exam -GENERAL: The patient is alert and oriented x3, not in any acute distress. Generally weak and pale HEENT: Pupils are round and equally reacting to light. EOMI. No scleral icterus. No conjunctival pallor. Normocephalic, atraumatic. No pharyngeal erythema. No thyromegaly. CARDIOVASCULAR: S1 and S2 present. No murmurs, rubs, or gallops. PULMONARY: Chest is clear to auscultation, no wheezing or crackles. ABDOMEN: Soft, nontender, nondistended, normoactive bowel sounds. No palpable organomegaly. MUSCULOSKELETAL: No joint swelling or deformity. EXTREMITIES: No cyanosis, clubbing, or pedal edema. NEUROLOGICAL: Gross neurological examination did not reveal any focal deficits. SKIN: No rashes. - Labs CBC & Chem 7: 04/06/19 07:03 04/06/19 07:03 Labs: Abnormal Lab Results - Last 24 Hours (Table) 04/05/19 04/05/19 04/05/19 Range/Units 05:11 16:45 19:56 WBC (3.8-10.6) k/uL RBC (4.30-5.90) m/uL Hgb (13.0-17.5) gm/dL Hct (39.0-53.0) % MCHC (31.0-37.0) g/dL RDW (11.5-15.5) % Plt Count (150-450) k/uL Blast Cells % % Neutrophils # (Manual) (1.3-7.7) k/uL Lymphocytes # (Manual) (1.0-4.8) k/uL Monocytes # (Manual) (0-1.0) k/uL Eosinophils # (Manual) (0-0.7) k/uL Metamyelocytes # (Man) (0) k/uL Myelocytes # (Manual) (0) k/uL Blast Cells # (Man) (0) k/uL Nucleated RBCs (0-0) /100 WBC Sodium (137-145) mmol/L Carbon Dioxide (22-30) mmol/L Creatinine (0.66-1.25) mg/dL Glucose (74-99) mg/dL POC Glucose (mg/dL) 179 H 164 H (75-99) mg/dL Calcium (8.4-10.2) mg/dL AST (17-59) U/L Alkaline Phosphatase (38-126) U/L Total Protein (6.3-8.2) g/dL Albumin (3.5-5.0) g/dL Procalcitonin 2.22 H (0.02-0.09) ng/mL 04/06/19 04/06/19 04/06/19 Range/Units 07:01 07:03 07:03 WBC 90.4 H* (3.8-10.6) k/uL RBC 3.00 L (4.30-5.90) m/uL Hgb 8.1 L (13.0-17.5) gm/dL Hct 26.8 L (39.0-53.0) % MCHC 30.4 L (31.0-37.0) g/dL RDW 22.9 H (11.5-15.5) % Plt Count 75 L (150-450) k/uL Blast Cells % 2 H* % Neutrophils # (Manual) 39.70 H (1.3-7.7) k/uL Lymphocytes # (Manual) 7.23 H (1.0-4.8) k/uL Monocytes # (Manual) 40.68 H (0-1.0) k/uL Eosinophils # (Manual) 1.81 H (0-0.7) k/uL Metamyelocytes # (Man) 0.90 H (0) k/uL Myelocytes # (Manual) 0.90 H (0) k/uL Blast Cells # (Man) 1.81 H (0) k/uL Nucleated RBCs 3 H (0-0) /100 WBC Sodium 136 L (137-145) mmol/L Carbon Dioxide 20 L (22-30) mmol/L Creatinine 1.62 H (0.66-1.25) mg/dL Glucose 122 H (74-99) mg/dL POC Glucose (mg/dL) 134 H (75-99) mg/dL Calcium 7.3 L (8.4-10.2) mg/dL AST 60 H (17-59) U/L Alkaline Phosphatase 148 H (38-126) U/L Total Protein 6.2 L (6.3-8.2) g/dL Albumin 2.9 L (3.5-5.0) g/dL Procalcitonin (0.02-0.09) ng/mL 04/06/19 Range/Units 11:17 WBC (3.8-10.6) k/uL RBC (4.30-5.90) m/uL Hgb (13.0-17.5) gm/dL Hct (39.0-53.0) % MCHC (31.0-37.0) g/dL RDW (11.5-15.5) % Plt Count (150-450) k/uL Blast Cells % % Neutrophils # (Manual) (1.3-7.7) k/uL Lymphocytes # (Manual) (1.0-4.8) k/uL Monocytes # (Manual) (0-1.0) k/uL Eosinophils # (Manual) (0-0.7) k/uL Metamyelocytes # (Man) (0) k/uL Myelocytes # (Manual) (0) k/uL Blast Cells # (Man) (0) k/uL Nucleated RBCs (0-0) /100 WBC Sodium (137-145) mmol/L Carbon Dioxide (22-30) mmol/L Creatinine (0.66-1.25) mg/dL Glucose (74-99) mg/dL POC Glucose (mg/dL) 149 H (75-99) mg/dL Calcium (8.4-10.2) mg/dL AST (17-59) U/L Alkaline Phosphatase (38-126) U/L Total Protein (6.3-8.2) g/dL Albumin (3.5-5.0) g/dL Procalcitonin (0.02-0.09) ng/mL Microbiology - Last 24 Hours (Table) 04/04/19 07:53 Gram Stain - Final Sputum Sputum Culture - Final 04/02/19 23:25 Blood Culture - Preliminary Blood No Growth after 72 hours 04/03/19 23:15 Blood Culture - Preliminary Blood No Growth after 48 hours Assessment and Plan Plan: - Systemic inflammatory response syndrome: I didn't see any significant evidence o f infection at this time all his symptoms are probably because of CML and conversion to acute myeloid leukemia for which patient may need a bone marrow biopsy. Infectious disease evaluate the patient. As there is no significant evidence of infection Zosyn is being considered can discontinued because of possibly of rash related to Zosyn Possible petechiae seconded thrombocytopenia and nonfunctional platelets from possible AML -Acute hypoxic respiratory failure secondary to CHF exacerbation patient was started on IV Lasix patient's ejection fraction was 30-35% patient has chronic systolic dysfunction. Patient is still requiring oxygen, if we're able to wean off of his oxygen will be discharged on oral Lasix tomorrow to subacute rehabilitation -Acute kidney injury secondary to congestive heart failure prerenal azotemia. 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
--- NOTE | 2019-04-06 13:13 | P.PN ---
Subjective Progress Note Date: 04/06/19 Principal diagnosis: SIRS, Weakness, Hypoxia Still very weak and fatigued, tolerating hydrea, without decreased counts. Objective - Vital Signs Vital signs: Vital Signs Temp 97.8 F 04/06/19 11:33 Pulse 84 04/06/19 12:23 Resp 17 04/06/19 11:33 BP 101/55 04/06/19 11:33 Pulse Ox 91 L 04/06/19 11:33 Intake & Output 04/05/19 04/06/19 04/06/19 18:59 06:59 18:59 Intake Total 520 1160 Output Total 1020 1100 Balance -500 60 Intake: IV 420 340 Piperacillin-Tazobactam 3 200 100 .375 gm In Sodium Chloride 0.9% 100 ml @ 25 mls/hr IVPB Q8HR [facility] Rx# :[id number] Sodium Chloride 0.9% 1, 220 240 000 ml @ 20 mls/hr IV . Q24H [facility] Rx#:[id number] Intake, IV Titration 100 100 Amount Magnesium Sulfate-D5w Pmx 100 1 gm In Dextrose/Water 1 100ml.bag @ 100 mls/hr IVPB ONCE ONE Rx#: [id number] Piperacillin-Tazobactam 3 100 .375 gm In Sodium Chloride 0.9% 100 ml @ 25 mls/hr IVPB Q8HR [facility] Rx# :[id number] Oral 720 Output: Urine 1020 800 Stool 300 Other: Voiding Method Indwelling Catheter Indwelling Catheter Indwelling Catheter - Exam General: Alert and Oriented x3, No Acute Distress Head: Normocytic, Atraumatic Neck: Supple Mouth: No Lesions, No Thrush Eyes: Non-sclerotic No Palpable cervical, supraclavicular, axillary adenopathy Heart: irr Lungs: increased effort Abdomen: Soft, Non-Distended, Non-Tended, BSx4 Extremities: Rash upper thoracic and bilateral arms Neurological: No Focal Defects: No sensory or motor deficits noted - Labs CBC & Chem 7: 04/06/19 07:03 04/06/19 07:03 Labs: Abnormal Lab Results - Last 24 Hours (Table) 04/05/19 04/05/19 04/05/19 Range/Units 05:11 16:45 19:56 WBC (3.8-10.6) k/uL RBC (4.30-5.90) m/uL Hgb (13.0-17.5) gm/dL Hct (39.0-53.0) % MCHC (31.0-37.0) g/dL RDW (11.5-15.5) % Plt Count (150-450) k/uL Blast Cells % % Neutrophils # (Manual) (1.3-7.7) k/uL Lymphocytes # (Manual) (1.0-4.8) k/uL Monocytes # (Manual) (0-1.0) k/uL Eosinophils # (Manual) (0-0.7) k/uL Metamyelocytes # (Man) (0) k/uL Myelocytes # (Manual) (0) k/uL Blast Cells # (Man) (0) k/uL Nucleated RBCs (0-0) /100 WBC Sodium (137-145) mmol/L Carbon Dioxide (22-30) mmol/L Creatinine (0.66-1.25) mg/dL Glucose (74-99) mg/dL POC Glucose (mg/dL) 179 H 164 H (75-99) mg/dL Calcium (8.4-10.2) mg/dL AST (17-59) U/L Alkaline Phosphatase (38-126) U/L Total Protein (6.3-8.2) g/dL Albumin (3.5-5.0) g/dL Procalcitonin 2.22 H (0.02-0.09) ng/mL 04/06/19 04/06/19 04/06/19 Range/Units 07:01 07:03 07:03 WBC 90.4 H* (3.8-10.6) k/uL RBC 3.00 L (4.30-5.90) m/uL Hgb 8.1 L (13.0-17.5) gm/dL Hct 26.8 L (39.0-53.0) % MCHC 30.4 L (31.0-37.0) g/dL RDW 22.9 H (11.5-15.5) % Plt Count 75 L (150-450) k/uL Blast Cells % 2 H* % Neutrophils # (Manual) 39.70 H (1.3-7.7) k/uL Lymphocytes # (Manual) 7.23 H (1.0-4.8) k/uL Monocytes # (Manual) 40.68 H (0-1.0) k/uL Eosinophils # (Manual) 1.81 H (0-0.7) k/uL Metamyelocytes # (Man) 0.90 H (0) k/uL Myelocytes # (Manual) 0.90 H (0) k/uL Blast Cells # (Man) 1.81 H (0) k/uL Nucleated RBCs 3 H (0-0) /100 WBC Sodium 136 L (137-145) mmol/L Carbon Dioxide 20 L (22-30) mmol/L Creatinine 1.62 H (0.66-1.25) mg/dL Glucose 122 H (74-99) mg/dL POC Glucose (mg/dL) 134 H (75-99) mg/dL Calcium 7.3 L (8.4-10.2) mg/dL AST 60 H (17-59) U/L Alkaline Phosphatase 148 H (38-126) U/L Total Protein 6.2 L (6.3-8.2) g/dL Albumin 2.9 L (3.5-5.0) g/dL Procalcitonin (0.02-0.09) ng/mL 04/06/19 Range/Units 11:17 WBC (3.8-10.6) k/uL RBC (4.30-5.90) m/uL Hgb (13.0-17.5) gm/dL Hct (39.0-53.0) % MCHC (31.0-37.0) g/dL RDW (11.5-15.5) % Plt Count (150-450) k/uL Blast Cells % % Neutrophils # (Manual) (1.3-7.7) k/uL Lymphocytes # (Manual) (1.0-4.8) k/uL Monocytes # (Manual) (0-1.0) k/uL Eosinophils # (Manual) (0-0.7) k/uL Metamyelocytes # (Man) (0) k/uL Myelocytes # (Manual) (0) k/uL Blast Cells # (Man) (0) k/uL Nucleated RBCs (0-0) /100 WBC Sodium (137-145) mmol/L Carbon Dioxide (22-30) mmol/L Creatinine (0.66-1.25) mg/dL Glucose (74-99) mg/dL POC Glucose (mg/dL) 149 H (75-99) mg/dL Calcium (8.4-10.2) mg/dL AST (17-59) U/L Alkaline Phosphatase (38-126) U/L Total Protein (6.3-8.2) g/dL Albumin (3.5-5.0) g/dL Procalcitonin (0.02-0.09) ng/mL Microbiology - Last 24 Hours (Table) 04/04/19 07:53 Gram Stain - Final Sputum Sputum Culture - Final 04/02/19 23:25 Blood Culture - Preliminary Blood No Growth after 72 hours 04/03/19 23:15 Blood Culture - Preliminary Blood No Growth after 48 hours Assessment and Plan Plan: Assessment and Plan ITP (idiopathic thrombocytopenic purpura) - History of ITP - The pt has responded very well to Promacta. 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 Plan: - I have spoke to Dr. Wilfrido Velazco who had recently started Hydrea 1000mg po daily, continue daily promacta, and restart Epogen. - Since it is unclear if patient WBC is worsening from acute illness, and with other cytopenias will restart at 500mg hydrea daily, monitor CBC closely - Concern for conversion to acute leukemia. Continue Hydrea, increase to 1000mg po Daily (500mg po BID) - Overall prognosis gaurded
[2019-04-06] MEDS: methylPREDNISolone SOD SUCCI 40 MG/ML 1 ML VIAL IV SCH ×3 (13:25→23:11)
[2019-04-06] MEDS ORDERED: Potassium Replacement Protocol 1 EACH MISC MISCELLANE PRN (15:06)
[2019-04-06] MEDS ORDERED: POTASSIUM CHLORIDE ER 20 MEQ TAB.ER PO SCH (16:00)
--- NOTE | 2019-04-06 16:56 | PN ---
PROGRESS NOTE DATE OF SERVICE: 04/06/2019. REASON FOR FOLLOWUP: 1. Fever with concern about pneumonia. 2. Diarrhea. Stool for C difficile negative. INTERVAL HISTORY: The patient is currently afebrile. The patient has been breathing comfortably. He has very minimal cough, not bringing up any sputum. Still complaining of multiple loose stools. The patient also has developed a rash. PHYSICAL EXAMINATION: Blood pressure 101/55 with a pulse of 94, temperature 97.8. He is 91% on 2 L nasal cannula. General description is an elderly male lying in bed in no distress. RESPIRATORY SYSTEM: Unlabored breathing with decreased breath sounds at the base. HEART: S1, S2. Regular rate and rhythm. ABDOMEN: Soft. No tenderness. LABS: Hemoglobin 8.1, white count 90.4 with a BUN of 15, creatinine 1.62. DIAGNOSTIC IMPRESSION AND PLAN: 1. Patient admitted to hospital with a fever, generalized weakness and diarrhea. However, the patient did have multiple stools for C difficile, including PCR that has been negative, making it unlikely to be C difficile colitis. Currently on symptomatic treatment with Imodium. 2. Patient with left lower lobe infiltrate and fever with concern about pneumonia; patient now developing a rash to Zosyn. Zosyn has been discontinued. Will give a short course of oral Levaquin and monitor his clinical course closely. Continue with supportive care. MMODL / TERRYN: [id number] /
[2019-04-06 17:15] LABS: Glucose,Whole Blood 179 mg/dL (75-99)
[2019-04-06 20:07] LABS: Glucose,Whole Blood 231 mg/dL (75-99)
[2019-04-06] MEDS: ATORVASTATIN 40 MG TAB PO SCH (20:39)
[2019-04-06] MEDS: PROMACTA 50 MG PO SCH (20:40)
[2019-04-07] MEDS: methylPREDNISolone SOD SUCCI 40 MG/ML 1 ML VIAL IV SCH ×3 (04:56→17:54)
[2019-04-07 07:32] LABS: Glucose,Whole Blood 218 mg/dL (75-99)
[2019-04-07 07:46] LABS: Anisocytosis Moderate; HCT 27.3 % (39.0-53.0); HGB 8.2 gm/dL (13.0-17.5); Hypochromasia Marked; MCH 26.5 pg (25.0-35.0); MCHC 29.8 g/dL (31.0-37.0); MCV 88.7 fL (80.0-100.0); Mean Platelet Volume 13.8; Microcytosis Slight; Poikilocytosis Slight; RBC 3.08 m/uL (4.30-5.90); RDW 22.6 % (11.5-15.5)
[2019-04-07] MEDS: IPRATROPIUM-ALBUTEROL 3 ML NEB INHALATION SCH ×4 (07:57→20:16)
[2019-04-07 07:59] LABS: Calcium 7.4 mg/dL (8.4-10.2); Potassium 3.4 mmol/L (3.5-5.1)
[2019-04-07 08:01] LABS: Platelet Count 71 k/uL (150-450); WBC 102.5 k/uL (3.8-10.6)
[2019-04-07] MEDS: HYDROXYUREA 500 MG CAP PO SCH ×2 (08:54→20:29)
[2019-04-07] MEDS: FUROSEMIDE 10 MG/ML 4 ML VIAL IV SCH ×2 (08:54→20:30)
[2019-04-07] MEDS: CITALOPRAM HYDROBROMIDE 20 MG TAB PO SCH (08:54)
[2019-04-07] MEDS: CHOLECALCIFEROL 1,000 UNIT TAB PO SCH (08:54)
[2019-04-07] MEDS: INSULIN ASPART (NovoLOG) 100 UNIT/ML VIAL SQ SCH ×4 (08:54→20:29)
[2019-04-07] MEDS: PANTOPRAZOLE 40 MG TABLET PO SCH (08:54)
[2019-04-07] MEDS: POTASSIUM CHLORIDE ER 10 MEQ TAB.ER.PRT PO SCH (08:54)
[2019-04-07 11:21] LABS: Glucose,Whole Blood 250 mg/dL (75-99)
--- NOTE | 2019-04-07 11:51 | P.PN ---
Subjective Progress Note Date: 04/07/19 Principal diagnosis: Acute hypotension, intravascular volume depletion, dehydration This is a 74-year-old male patient who came into the emergency department yesterday with hypotension, tachycardia diarrhea and dehydration. The patient was found to have an acute kidney injury with a creatinine was at 1.8 and his previous creatinine from August 2018 was 1.2.. Lactic acidosis which was as high as 5.3 which came down to 2.3 after being given a total of 37 IV fluids. The patient received a total of 2 L normal saline and started on normal saline infusion at 75 mL an hour and no pressors was used. The chest x-ray shows a limited left lower lobe pulmonary infiltration. No eye tach on is quite elevated at 90,000 and it's declining down to 70,000.This patient is known to me. Of taking care of him on previous admission. He is known to have coronary artery disease and he has been involved in a previous non-ST segment elevation myocardial infarction back in 2017. At that time the patient had a complex cardiac catheterization and stenting during which she also required intra-aortic balloon pump insertion. He did well and he was given a stent in his circumflex artery. The balloon was removed and the patient went to rehabilitation. Note that he also has history of congestion heart failure with systolic dysfunction and ejection fraction of 35-40% and he also has history of ITP, AICD in place, diverticulosis, chronic anemia, osteoarthritis and previous history of C. diff. Note that following this admission, the patient was admitted to [facility] for a urine checked infection was discharged from the approximately a week ago after being given IV antibiotics. He was having loose/liquidy stools about 3-4 times a day and obviously this raises the concern for C. diff colitis. I started the patient on a combination of oral vancomycin and IV Zosyn pending further cultures and stool evaluation. Patient was reevaluated today on 04/04/2019, patient presented with hypotension tachycardia diarrhea and dehydration, patient was given fluids, started on antibiotics empirically, seems to be feeling a bit better today. However he is developing a bit of a cough, and his chest x-ray is showing some component of mild interstitial edema. Patient is known to have history of LV dysfunction, his ejection fraction is normally about 35%. Hence I recommended a dose of Lasix 40 mg IV push was given, I have The patient on the same antibiotics as initially given by Dr. Yi. Hemodynamically, the patient is stable, his urine output is reasonable. WBC count is down to 68.2 from 90,000 on presentation, electrolytes and renal profile were noted, creatinine is down to 1.75, bicarb is 20, patient is presently off bicarb drip. Remains on broad-spectrum antibiotics. All his meds were reviewed, he is on atorvastatin, vitamin D, Celexa, Lasix, albuterol with Atrovent updrafts, melatonin, Narcan, Protonix, Zosyn, potassium, and vancomycin. IV fluid is now at KVO. Patient is also on Promacta for chronic ITP. Patient was reevaluated today on 04/15/2019, patient is feeling much better, he is hemodynamically stable, chest x-ray showed evidence of mild interstitial edema, left lower lobe atelectasis, possible underlying infiltrate in the left lower lobe, however clinically the patient does not have symptoms to suggest pneumonia. Patient is not requiring any pressors, remains empirically on antibiotics, and he remains on diuretics, DuoNeb updrafts, continues to have diarrhea with black stools noted. Patient has a fecal management system in place. The patient is seen today 04/06/2019 in follow-up on the regular medical floor. He is awake and alert in no acute distress. Resting fairly comfortably in bed. He is maintaining O2 saturations in the 90s on 2 L/m per nasal cannula. He has developed a rash over his chest and upper extremities. He's been afebrile. Hemodynamically stable. Blood cultures reveal no growth. Urine culture reveals no growth. Sputum culture reveals no growth. White count is up to 90. Hemoglobin 8.1. Platelets 75,000. Blast cells elevated. There is concern with possible conversion to AML. 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 He is on Hydrea and Epogen. The patient is seen today 04/07/2019 in follow-up on the regular medical floor. He is currently resting comfortably in bed. He is quite fatigued today. Denies any worsening shortness of breath. Loose nonproductive cough. Maintaining O2 saturations in the 90s on 2 L/m per nasal cannula. She's afebrile. Hemodynamically stable. Blood urine and sputum cultures reveal no growth. White count up to 102.5. Hemoglobin 8.2. Platelets 71,000. Creatinine 1.48. He remains on Aranesp, Hydrea, Promacta. He remains on Lasix 40 mg every 12 hours. Antibiotics in the form of Levaquin. He is having frequent bowel movements. Mostly formed. His rash continues on his upper extremities and chest. He is on IV Solu-Medrol. Zosyn was discontinued yesterday. Objective - Vital Signs Vital signs: Vital Signs Temp 97.5 F L 04/07/19 05:35 Pulse 92 04/07/19 07:58 Resp 16 04/07/19 05:35 BP 117/65 04/07/19 05:35 Pulse Ox 93 L 04/07/19 05:35 Intake & Output 04/06/19 04/07/19 04/07/19 18:59 06:59 18:59 Intake Total 160 810 Output Total 1300 2700 Balance -1140 -1890 Intake: IV 160 220 Piperacillin-Tazobactam 3 100 .375 gm In Sodium Chloride 0.9% 100 ml @ 25 mls/hr IVPB Q8HR [facility] Rx# :[id number] Sodium Chloride 0.9% 1, 60 220 000 ml @ 20 mls/hr IV . Q24H [facility] Rx#:[id number] Oral 590 Output: Urine 1300 2700 Uretheral (Rehman) 1400 Other: Voiding Method Indwelling Catheter Indwelling Catheter Indwelling Catheter # Voids 0 - Exam GENERAL EXAM: Pleasant 74-year-old male, pale, in no acute distress, on 2 L nasal cannula HEAD: Normocephalic/atraumatic. Dry mucous membranes noted. EYES PERRLA, EOMI, no icterus. NOSE: Clear with pink turbinates. THROAT: No erythema or exudates. NECK: Supple no neck masses no JVD.. CHEST: No chest wall deformity. Symmetrical expansion. LUNGS: Fine crackles in the bilateral posterior bases left greater than right, no rhonchi no wheezes. CVS: Irregular rate and rhythm, normal S1 and S2, no gallops, no murmurs, no rubs, pacemaker/defibrillator later noted on the left upper chest wall area. ABDOMEN: Soft nontender no megaly no rebound EXTREMITIES: No clubbing edema or cyanosis. MUSCULOSKELETAL: Normal muscle tone, adequate strength bilaterally. SKIN: Rash on the trunk and upper extremities. CENTRAL NERVOUS SYSTEM: Alert and oriented 3, no gross focal neurologic deficits. Psychiatric: Feeling somewhat frustrated due to his health status. - Labs CBC & Chem 7: 04/07/19 06:56 04/07/19 06:56 Labs: Abnormal Lab Results - Last 24 Hours (Table) 04/06/19 04/06/19 04/07/19 Range/Units 17:13 20:06 06:56 WBC 102.5 H* (3.8-10.6) k/uL RBC 3.08 L (4.30-5.90) m/uL Hgb 8.2 L (13.0-17.5) gm/dL Hct 27.3 L (39.0-53.0) % MCHC 29.8 L (31.0-37.0) g/dL RDW 22.6 H (11.5-15.5) % Plt Count 71 L (150-450) k/uL Potassium (3.5-5.1) mmol/L Carbon Dioxide (22-30) mmol/L BUN (9-20) mg/dL Creatinine (0.66-1.25) mg/dL Glucose (74-99) mg/dL POC Glucose (mg/dL) 179 H 231 H (75-99) mg/dL Calcium (8.4-10.2) mg/dL 04/07/19 04/07/19 04/07/19 Range/Units 06:56 07:20 11:20 WBC (3.8-10.6) k/uL RBC (4.30-5.90) m/uL Hgb (13.0-17.5) gm/dL Hct (39.0-53.0) % MCHC (31.0-37.0) g/dL RDW (11.5-15.5) % Plt Count (150-450) k/uL Potassium 3.4 L (3.5-5.1) mmol/L Carbon Dioxide 21 L (22-30) mmol/L BUN 21 H (9-20) mg/dL Creatinine 1.48 H (0.66-1.25) mg/dL Glucose 186 H (74-99) mg/dL POC Glucose (mg/dL) 218 H 250 H (75-99) mg/dL Calcium 7.4 L (8.4-10.2) mg/dL Microbiology - Last 24 Hours (Table) 04/02/19 23:25 Blood Culture - Preliminary Blood No Growth after 96 hours 04/03/19 23:15 Blood Culture - Preliminary Blood No Growth after 72 hours 04/04/19 07:53 Gram Stain - Final Sputum Sputum Culture - Final Assessment and Plan Assessment: Impression: 1 acute hypotension secondary to diarrhea, dehydration, intravascular volume depletion, however possibility of sepsis is not entirely ruled out considering the patient had multiple episodes of C. difficile colitis. C. difficile toxin screens negative 2 this admission. Recovered. Hemodynamically stable currently. 2 suspect some component of mild systolic congestive heart failure, patient is known to have history of LV dysfunction, fluid boluses were given on presentation, the patient is developing mild CHF changes on the chest x-ray hence IV fluid is present at KVO and the patient was started on Lasix 40 mg IV push every 12 hours 3 acute kidney injury, could be related to hypovolemia and could be related to hypotension. Improved current creatinine 1.48. 4 chronic systolic dysfunction, patient had a previous AICD placement. 5 coronary artery disease and previous non-ST segment elevation myocardial infarction and previous stenting of the circumflex. 6 history of cardiogenic pulmonary edema. 7 multiple comorbidities including type 2 diabetes, COPD, chronic ITP, chronic anemia, 8 leukemoid reaction, possible underlying myeloproliferative disorder. Current white count 102.5. We will continue to monitor his CBC and WBC count. 9 mild troponin leak 10 left lower lobe atelectasis, possible pneumonia, however clinically is felt to be less likely. Pro-calcitonin 2.22. 11 history of chronic myelomonocytic leukemia with some concern regarding possible AML. Plan: The patient was seen and evaluated by Dr. Novak. He is stable from the pulmonary standpoint. Currently hemodynamically stable. White count 102.5. Oncology is on the case. On Promacta, Hydrea, Aranesp. We will continue to follow and make further recommendations based on his clinical status. I, the cosigning physician, performed a history & physical examination of the patient. Lungs sounds with crackles in the bases. left greater than right. Maintaining good O2 saturations in the 90s on 2 L/m per nasal cannula. I discussed the assessment and plan of care with my nurse practitioner, Giovana Samuels. I attest to the above note as dictated by her.
[2019-04-07] MEDS ORDERED: Potassium Replacement Protocol 1 EACH MISC MISCELLANE PRN (13:13)
[2019-04-07] MEDS: POTASSIUM CHLORIDE ER 20 MEQ TAB.ER PO SCH ×2 (13:57→17:51)
[2019-04-07] MEDS: SODIUM CHLORIDE 0.9% 1,000 ML IV SCH (13:57)
[2019-04-07 13:59] LABS: Anisocytosis Moderate; HCT 34.6 % (39.0-53.0); HGB 10.1 gm/dL (13.0-17.5); Hypochromasia Marked; MCH 27.6 pg (25.0-35.0); MCHC 29.3 g/dL (31.0-37.0); Macrocytosis Slight; Mean Platelet Volume 8.6; Poikilocytosis Slight; RBC 3.67 m/uL (4.30-5.90); RDW 22.7 % (11.5-15.5)
[2019-04-07] MEDS ORDERED: LEVOFLOXACIN 250 MG TAB PO SCH (14:00)
[2019-04-07 14:24] LABS: MCV 94.1 fL (80.0-100.0); Platelet Count 75 k/uL (150-450); WBC 134.5 k/uL (3.8-10.6)
[2019-04-07 15:19] LABS: Band Neutrophils % 3 %; Metamyelocytes % 4 %; Myelocytes % 3 %; Neutrophils % (M) 41 %; Nucleated Red Blood Cells 2 /100 WBC (0-0); Total Cells Counted 200
[2019-04-07 15:20] LABS: Blast Cells # (M) 2.64 k/uL (0); Lymphocytes # (M) 13.19 k/uL (1.0-4.8); Metamyelocytes # (M) 5.28 k/uL (0); Monocytes # (M) 51.44 k/uL (0-1.0); Myelocytes # (M) 3.96 k/uL (0)
--- NOTE | 2019-04-07 17:01 | PN ---
PROGRESS NOTE DATE OF SERVICE: 04/07/2019. REASON FOR FOLLOWUP: 1. Fever with a question of possible pneumonia. 2. Drug rash. 3. Diarrhea. INTERVAL HISTORY: The patient is afebrile. The patient's main symptom remains to be significant diarrhea with multiple loose stools, but he denies having any worsening abdominal pain. No nausea or vomiting. The patient still has some cough and is bringing up some sputum, but no worsening. Rash with no worsening has been noticed. Mild itching, though. No difficulty. No tongue swelling or any other symptoms. PHYSICAL EXAMINATION: Blood pressure 116/65 with a pulse of 75, temperature 97.4. He is 95% on 2 L nasal cannula. General description is an elderly male lying in bed in no distress. RESPIRATORY SYSTEM: Unlabored breathing with decreased breath sounds at the base. HEART: S1, S2. Regular rate and rhythm. ABDOMEN: Soft. No tenderness. LABS: Hemoglobin is 10.1, white count 134.5. BUN of 21, creatinine 1.48. DIAGNOSTIC IMPRESSION AND PLAN: 1. Patient with fever with concern about Clostridium difficile, though has been negative. With persistent C difficile diarrhea and responding to the Imodium, Questran will be added. Stool cultures will be ordered. 2. Patient with fever, concern about possible pneumonia. Zosyn was discontinued in view of persistent diarrhea and a rash likely related to it. Currently on oral Levaquin. Sputum has been negative for any resistant pathogen. Monitor his clinical course closely. MMODL / IJN: [id number] /
[2019-04-07 17:27] LABS: Glucose,Whole Blood 183 mg/dL (75-99)
[2019-04-07] MEDS: CHOLESTYRAMINE (WITH SUGAR) 4 GM PACKET PO SCH (17:52)
--- NOTE | 2019-04-07 20:02 | P.PN ---
Subjective Progress Note Date: 04/07/19 Principal diagnosis: SIRS, Weakness, Hypoxia Still very weak and fatigued, tolerating hydrea, working with therapy Objective - Vital Signs Vital signs: Vital Signs Temp 97.4 F L 04/07/19 11:40 Pulse 88 04/07/19 16:20 Resp 20 04/07/19 11:40 BP 116/65 04/07/19 11:40 Pulse Ox 91 L 04/07/19 14:51 Intake & Output 04/07/19 04/07/19 04/08/19 06:59 18:59 06:59 Intake Total 810 160 Output Total 2700 300 Balance -1890 -140 Intake: IV 220 160 Sodium Chloride 0.9% 1, 220 160 000 ml @ 20 mls/hr IV . Q24H [facility] Rx#:[id number] Oral 590 Output: Urine 2700 Uretheral (Rehman) 1400 Stool 300 Other: Voiding Method Indwelling Catheter Indwelling Catheter # Voids 0 # Bowel Movements 1 - Exam General: Alert and Oriented x3, No Acute Distress Head: Normocytic, Atraumatic Neck: Supple Mouth: No Lesions, No Thrush Eyes: Non-sclerotic No Palpable cervical, supraclavicular, axillary adenopathy Heart: irr Lungs: increased effort Abdomen: Soft, Non-Distended, Non-Tended, BSx4 Extremities: Rash upper thoracic and bilateral arms Neurological: No Focal Defects: No sensory or motor deficits noted - Labs CBC & Chem 7: 04/07/19 13:26 04/07/19 06:56 Labs: Abnormal Lab Results - Last 24 Hours (Table) 04/06/19 04/07/19 04/07/19 Range/Units 20:06 06:56 06:56 WBC 102.5 H* (3.8-10.6) k/uL RBC 3.08 L (4.30-5.90) m/uL Hgb 8.2 L (13.0-17.5) gm/dL Hct 27.3 L (39.0-53.0) % MCHC 29.8 L (31.0-37.0) g/dL RDW 22.6 H (11.5-15.5) % Plt Count 71 L (150-450) k/uL Blast Cells % % Neutrophils # (Manual) (1.3-7.7) k/uL Lymphocytes # (Manual) (1.0-4.8) k/uL Monocytes # (Manual) (0-1.0) k/uL Metamyelocytes # (Man) (0) k/uL Myelocytes # (Manual) (0) k/uL Blast Cells # (Man) (0) k/uL Nucleated RBCs (0-0) /100 WBC Potassium 3.4 L (3.5-5.1) mmol/L Carbon Dioxide 21 L (22-30) mmol/L BUN 21 H (9-20) mg/dL Creatinine 1.48 H (0.66-1.25) mg/dL Glucose 186 H (74-99) mg/dL POC Glucose (mg/dL) 231 H (75-99) mg/dL Calcium 7.4 L (8.4-10.2) mg/dL 04/07/19 04/07/19 04/07/19 Range/Units 07:20 11:20 13:26 WBC 134.5 H* (3.8-10.6) k/uL RBC 3.67 L (4.30-5.90) m/uL Hgb 10.1 L (13.0-17.5) gm/dL Hct 34.6 L (39.0-53.0) % MCHC 29.3 L (31.0-37.0) g/dL RDW 22.7 H (11.5-15.5) % Plt Count 75 L (150-450) k/uL Blast Cells % 2 H* % Neutrophils # (Manual) 58.00 H (1.3-7.7) k/uL Lymphocytes # (Manual) 13.19 H (1.0-4.8) k/uL Monocytes # (Manual) 51.44 H (0-1.0) k/uL Metamyelocytes # (Man) 5.28 H (0) k/uL Myelocytes # (Manual) 3.96 H (0) k/uL Blast Cells # (Man) 2.64 H (0) k/uL Nucleated RBCs 2 H (0-0) /100 WBC Potassium (3.5-5.1) mmol/L Carbon Dioxide (22-30) mmol/L BUN (9-20) mg/dL Creatinine (0.66-1.25) mg/dL Glucose (74-99) mg/dL POC Glucose (mg/dL) 218 H 250 H (75-99) mg/dL Calcium (8.4-10.2) mg/dL 04/07/19 Range/Units 17:25 WBC (3.8-10.6) k/uL RBC (4.30-5.90) m/uL Hgb (13.0-17.5) gm/dL Hct (39.0-53.0) % MCHC (31.0-37.0) g/dL RDW (11.5-15.5) % Plt Count (150-450) k/uL Blast Cells % % Neutrophils # (Manual) (1.3-7.7) k/uL Lymphocytes # (Manual) (1.0-4.8) k/uL Monocytes # (Manual) (0-1.0) k/uL Metamyelocytes # (Man) (0) k/uL Myelocytes # (Manual) (0) k/uL Blast Cells # (Man) (0) k/uL Nucleated RBCs (0-0) /100 WBC Potassium (3.5-5.1) mmol/L Carbon Dioxide (22-30) mmol/L BUN (9-20) mg/dL Creatinine (0.66-1.25) mg/dL Glucose (74-99) mg/dL POC Glucose (mg/dL) 183 H (75-99) mg/dL Calcium (8.4-10.2) mg/dL Microbiology - Last 24 Hours (Table) 04/02/19 23:25 Blood Culture - Preliminary Blood No Growth after 96 hours 04/03/19 23:15 Blood Culture - Preliminary Blood No Growth after 72 hours Assessment and Plan Plan: Assessment and Plan ITP (idiopathic thrombocytopenic purpura) - History of ITP - The pt has responded very well to Promacta. 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 Plan: - I have spoke to Dr. Wilfrido Velazco who had recently started Hydrea 1000mg po daily, continue daily promacta, and restart Epogen. - Since it is unclear if patient WBC is worsening from acute illness, and with other cytopenias will restart at 500mg hydrea daily, monitor CBC closely - Concern for conversion to acute leukemia. Continue Hydrea, increase to 1000mg po Daily (500mg po BID) - Overall prognosis gaurded - Scripts for promacta and hydrea sent to pharmacy. If possible to script procrit for ECF would be beneficial
[2019-04-07 20:03] LABS: Glucose,Whole Blood 225 mg/dL (75-99)
[2019-04-07] MEDS: ATORVASTATIN 40 MG TAB PO SCH (20:27)
[2019-04-07] MEDS: PROMACTA 50 MG PO SCH (20:27)
[2019-04-07 21:28] VITALS: RESP 18
--- NOTE | 2019-04-07 21:36 | P.PN ---
Subjective Progress Note Date: 04/07/19 Principal diagnosis: This is a 74 year old male that was admitted for significant leukocytosis, systemic inflammatory response and tachycardia and is being closely monitored. Patient has been having a lot of diarrhea and a stool culture for c diff was sent today which was negative. Patient has a fecal management system in place that is showing a large amount of loose stool. Patient denies any increasing abdominal pain, denies any nausea or vomiting, chest pain, shortness of breath, or fevers at this time. Patient has been approved for [facility] in subacute rehab. Stool culture for c-diff was pending at the time of approval. Patient will likely be sent to [facility] tomorrow. Infectious disease and oncology following the patient as well. Objective - Vital Signs Vital signs: Vital Signs Temp 97.4 F L 04/07/19 11:40 Pulse 88 04/07/19 20:22 Resp 20 04/07/19 11:40 BP 116/65 04/07/19 11:40 Pulse Ox 91 L 04/07/19 14:51 Intake & Output 04/07/19 04/07/19 04/08/19 06:59 18:59 06:59 Intake Total 810 160 Output Total 2700 300 Balance -1890 -140 Intake: IV 220 160 Sodium Chloride 0.9% 1, 220 160 000 ml @ 20 mls/hr IV . Q24H [facility] Rx#:[id number] Oral 590 Output: Urine 2700 Uretheral (Rehman) 1400 Stool 300 Other: Voiding Method Indwelling Catheter Indwelling Catheter # Voids 0 # Bowel Movements 1 - Exam On exam, the patient is alert and oriented and appears in no acute distress. Vital signs are stable. Heent: conjunctivae normal, EOMs intact Neck: supple, no lymph nodes noted, no JVD noted Cardiovascular: S1, S2 heard, RRR Respiratory: breath sounds clear upon auscultation with no wheezing noted on exam Abdomen: soft, non-tender, no masses noted Legs: no swelling or edema noted Nervous system: no new focal deficits Skin: dry, maculopapular rash noted on bilateral upper extremities with some erythema noted. Labs: As noted below Assessment: Systemic inflammatory response syndrome: Didn't see any significant evidence of infection at this time as all symptoms are most likely because of the CML and conversion to acute myeloid leukemia for which patient may need a bone marrow biopsy. Infectious disease if following the patient and has discontinued the IV zosyn as this may have been the cause of the rash of the upper extremities. Levaquin oral was added. Possible petechiae secondary to thrombocytopenia and non-functional platelets from possible AML Acute hypoxic respiratory failure secondary to CHF exacerbation. Patient was on IV lasix with ejection fraction of 30-35% as patient has chronic systolic dysfunction. Patient was on 2L oxygen via NC and was weaned and maintaining 02 saturations of 90-91% on room air. Patient will be changed to oral lasix 40mg BID upon discharge to subacute rehab. 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 currently restarted on hydroxyurea Iron deficiency anemia Recommendations and Discussion: Recommend continuing current medications and symptomatic management. Will continue to monitor closely. Will continue to monitor lab values and vitals. Continue to monitor blood sugars and treat accordingly. Further instructions to follow. Prognosis is guarded at this time. Patient is to be discharged tomorrow and transferred to [facility]. Procrit injections are being held at this time and family has agreed to bring the chemo medications as instructed by the subacute rehab. - Constitutional General appearance: Present: no acute distress - Labs CBC & Chem 7: 04/07/19 13:26 04/07/19 06:56 Labs: Abnormal Lab Results - Last 24 Hours (Table) 04/07/19 04/07/19 04/07/19 Range/Units 06:56 06:56 07:20 WBC 102.5 H* (3.8-10.6) k/uL RBC 3.08 L (4.30-5.90) m/uL Hgb 8.2 L (13.0-17.5) gm/dL Hct 27.3 L (39.0-53.0) % MCHC 29.8 L (31.0-37.0) g/dL RDW 22.6 H (11.5-15.5) % Plt Count 71 L (150-450) k/uL Blast Cells % % Neutrophils # (Manual) (1.3-7.7) k/uL Lymphocytes # (Manual) (1.0-4.8) k/uL Monocytes # (Manual) (0-1.0) k/uL Metamyelocytes # (Man) (0) k/uL Myelocytes # (Manual) (0) k/uL Blast Cells # (Man) (0) k/uL Nucleated RBCs (0-0) /100 WBC Potassium 3.4 L (3.5-5.1) mmol/L Carbon Dioxide 21 L (22-30) mmol/L BUN 21 H (9-20) mg/dL Creatinine 1.48 H (0.66-1.25) mg/dL Glucose 186 H (74-99) mg/dL POC Glucose (mg/dL) 218 H (75-99) mg/dL Calcium 7.4 L (8.4-10.2) mg/dL 04/07/19 04/07/19 04/07/19 Range/Units 11:20 13:26 17:25 WBC 134.5 H* (3.8-10.6) k/uL RBC 3.67 L (4.30-5.90) m/uL Hgb 10.1 L (13.0-17.5) gm/dL Hct 34.6 L (39.0-53.0) % MCHC 29.3 L (31.0-37.0) g/dL RDW 22.7 H (11.5-15.5) % Plt Count 75 L (150-450) k/uL Blast Cells % 2 H* % Neutrophils # (Manual) 58.00 H (1.3-7.7) k/uL Lymphocytes # (Manual) 13.19 H (1.0-4.8) k/uL Monocytes # (Manual) 51.44 H (0-1.0) k/uL Metamyelocytes # (Man) 5.28 H (0) k/uL Myelocytes # (Manual) 3.96 H (0) k/uL Blast Cells # (Man) 2.64 H (0) k/uL Nucleated RBCs 2 H (0-0) /100 WBC Potassium (3.5-5.1) mmol/L Carbon Dioxide (22-30) mmol/L BUN (9-20) mg/dL Creatinine (0.66-1.25) mg/dL Glucose (74-99) mg/dL POC Glucose (mg/dL) 250 H 183 H (75-99) mg/dL Calcium (8.4-10.2) mg/dL 04/07/19 Range/Units 20:01 WBC (3.8-10.6) k/uL RBC (4.30-5.90) m/uL Hgb (13.0-17.5) gm/dL Hct (39.0-53.0) % MCHC (31.0-37.0) g/dL RDW (11.5-15.5) % Plt Count (150-450) k/uL Blast Cells % % Neutrophils # (Manual) (1.3-7.7) k/uL Lymphocytes # (Manual) (1.0-4.8) k/uL Monocytes # (Manual) (0-1.0) k/uL Metamyelocytes # (Man) (0) k/uL Myelocytes # (Manual) (0) k/uL Blast Cells # (Man) (0) k/uL Nucleated RBCs (0-0) /100 WBC Potassium (3.5-5.1) mmol/L Carbon Dioxide (22-30) mmol/L BUN (9-20) mg/dL Creatinine (0.66-1.25) mg/dL Glucose (74-99) mg/dL POC Glucose (mg/dL) 225 H (75-99) mg/dL Calcium (8.4-10.2) mg/dL Microbiology - Last 24 Hours (Table) 04/02/19 23:25 Blood Culture - Preliminary Blood No Growth after 96 hours 04/03/19 23:15 Blood Culture - Preliminary Blood No Growth after 72 hours
[2019-04-08] MEDS: methylPREDNISolone SOD SUCCI 40 MG/ML 1 ML VIAL IV SCH ×3 (00:11→12:25)
[2019-04-08 06:23] VITALS: BP 114/64; TEMP 97.6
[2019-04-08 07:13] LABS: Glucose,Whole Blood 216 mg/dL (75-99)
[2019-04-08] MEDS: IPRATROPIUM-ALBUTEROL 3 ML NEB INHALATION SCH ×2 (07:51→11:26)
[2019-04-08 07:58] VITALS: PULSE 88
[2019-04-08 08:26] LABS: Anisocytosis Moderate; HCT 30.3 % (39.0-53.0); HGB 8.8 gm/dL (13.0-17.5); Hypochromasia Marked; MCH 26.5 pg (25.0-35.0); MCHC 29.1 g/dL (31.0-37.0); MCV 90.8 fL (80.0-100.0); Macrocytosis Slight; Mean Platelet Volume 14.9; Microcytosis Slight; Poikilocytosis Slight; RBC 3.34 m/uL (4.30-5.90); RDW 22.8 % (11.5-15.5)
[2019-04-08 08:32] LABS: WBC 101.1 k/uL (3.8-10.6)
[2019-04-08 08:33] LABS: Platelet Count 71 k/uL (150-450)
[2019-04-08] MEDS: INSULIN ASPART (NovoLOG) 100 UNIT/ML VIAL SQ SCH ×2 (09:43→12:37)
[2019-04-08] MEDS: CHOLESTYRAMINE (WITH SUGAR) 4 GM PACKET PO SCH (09:50)
[2019-04-08] MEDS: HYDROXYUREA 500 MG CAP PO SCH (09:50)
[2019-04-08] MEDS: CITALOPRAM HYDROBROMIDE 20 MG TAB PO SCH (09:52)
[2019-04-08] MEDS: CHOLECALCIFEROL 1,000 UNIT TAB PO SCH (09:52)
[2019-04-08] MEDS: PANTOPRAZOLE 40 MG TABLET PO SCH (09:52)
[2019-04-08] MEDS: POTASSIUM CHLORIDE ER 10 MEQ TAB.ER.PRT PO SCH (09:53)
[2019-04-08] MEDS: FUROSEMIDE 10 MG/ML 4 ML VIAL IV SCH (09:53)
--- NOTE | 2019-04-08 10:05 | P.DS ---
Providers Date of admission: 04/03/19 00:14 Expected date of discharge: 04/08/19 Attending physician: Shamar Bull Consults: 04/03/19 03:32 Consult Physician Routine Consulting Provider: Syd Yi Consult Reason/Comments: icu managment Do you want consulting provider notified?: Already Contacted 04/03/19 12:15 Consult Physician Urgent Consulting Provider: Christal Estevez Consult Reason/Comments: elevated troponin Do you want consulting provider notified?: Yes 04/03/19 17:49 Consult Physician Routine Consulting Provider: Emily Argueta Consult Reason/Comments: sepsis Do you want consulting provider notified?: Already Contacted 04/04/19 12:08 Consult Physician Routine Consulting Provider: Yaniv Stephens Consult Reason/Comments: leukocytosis/ peripheral blood is abnormal Do you want consulting provider notified?: Yes Primary care physician: 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 Total time taken is 35 minutes. Oral antibiotics has been arranged per infectious disease recommendations. History of present illness This is a 74-year-old male that was admitted for significant leukocytosis, systemic inflammatory response and tachycardia that was being closely monitored. Patient has been having a lot of loose stools with a previous history of C. diff. C. diff cultures were sent and were negative yesterday. Since then the fecal impaction system has been removed and patient is reported some more formed stool. Patient will be sent to [facility] with Imodium on an as-needed basis. Son will be coming here shortly to pick him up and transport him to [facility]. Patient denies any shortness of breath, chest pain, palpitations, or abdominal pain at this time. Patient is afebrile. Patient sitting up in the chair in no acute distress and maintaining oxygen saturation on room air at 91-92%. Patient denies any nausea or vomiting at this time. Patient is aware of the treatment plan and agrees with the plan. Per infectious disease patient will continue on oral Levaquin for a short course. Patient is stable currently, much improved. Patient being discharged in a stable condition with guarded prognosis for further evaluation and treatment at [facility]. On exam vital signs are stable. Cardio S1 and S2 are normal. Respiratory system is clear to auscultation. Abdomen is soft and nontender. Nervous system is mild weakness Please refer to the medication reconciliation sheet for list of medications. Patient Condition at Discharge: Serious Plan - Discharge Summary Discharge Rx Participant: Yes New Discharge Prescriptions: New Darbepoetin Bret [Aranesp] 200 mcg SQ Q7D #4 syringe Eltrombopag Olamine [Promacta] 50 mg PO HS #30 Hydroxyurea [Hydrea] 500 mg PO BID #60 cap Loperamide [Imodium] 2 mg PO QID PRN cap PRN Reason: Diarrhea Furosemide [Lasix] 40 mg PO BID #60 tablet Levofloxacin [Levaquin] 250 mg PO Q24H tab Continue Atorvastatin [Lipitor] 40 mg PO HS Clopidogrel [Plavix] 75 mg PO DAILY #30 tab Acetaminophen Tab [Tylenol] 500 mg PO BID@1200,2100 Saxagliptin HCl [Onglyza] 2.5 mg PO DAILY Potassium Chloride ER [K-Dur 10] 10 meq PO AC-LUNCH Citalopram Hydrobromide [CeleXA] 20 mg PO DAILY Cholecalciferol [Vitamin D3 (25 Mcg = 1000 Iu)] 1,000 unit PO DAILY Torsemide [Demadex] 20 mg PO DAILY Calcium Polycarbophil [Fiber-Lax] 625 mg PO AC-LUNCH Discontinued Eltrombopag Olamine [Promacta] 50 mg PO HS Discharge Medication List Atorvastatin [Lipitor] 40 mg PO HS 04/22/16 [History] Clopidogrel [Plavix] 75 mg PO DAILY #30 tab 09/07/18 [Rx] Acetaminophen Tab [Tylenol] 500 mg PO BID@1200,2100 04/02/19 [History] Calcium Polycarbophil [Fiber-Lax] 625 mg PO AC-LUNCH 04/02/19 [History] Cholecalciferol [Vitamin D3 (25 Mcg = 1000 Iu)] 1,000 unit PO DAILY 04/02/19 [History] Citalopram Hydrobromide [CeleXA] 20 mg PO DAILY 04/02/19 [History] Potassium Chloride ER [K-Dur 10] 10 meq PO AC-LUNCH 04/02/19 [History] Saxagliptin HCl [Onglyza] 2.5 mg PO DAILY 04/02/19 [History] Torsemide [Demadex] 20 mg PO DAILY 04/02/19 [History] Darbepoetin Bret [Aranesp] 200 mcg SQ Q7D #4 syringe 04/07/19 [Rx] Eltrombopag Olamine [Promacta] 50 mg PO HS #30 04/07/19 [Rx] Furosemide [Lasix] 40 mg PO BID #60 tablet 04/07/19 [Rx] Hydroxyurea [Hydrea] 500 mg PO BID #60 cap 04/07/19 [Rx] Levofloxacin [Levaquin] 250 mg PO Q24H tab 04/07/19 [Rx] Loperamide [Imodium] 2 mg PO QID PRN cap 04/07/19 [Rx] Follow up Appointment(s)/Referral(s): Ford Amin MD [Primary Care Provider] - 1-2 days Activity/Diet/Wound Care/Special Instructions: [facility] Activity as tolerated Continue oral antibiotics Continue current home medications Continue with current diet and advance as tolerated Discharge Disposition: TRANSFER TO SNF/ECF
[2019-04-08 11:00] LABS: Band Neutrophils % 3 %; Basophils # (M) 1.01 k/uL (0-0.2); Blast Cells # (M) 2.02 k/uL (0); Lymphocytes # (M) 5.06 k/uL (1.0-4.8); Metamyelocytes # (M) 2.02 k/uL (0); Metamyelocytes % 2 %; Monocytes # (M) 44.48 k/uL (0-1.0); Myelocytes # (M) 3.03 k/uL (0); Myelocytes % 3 %; Neutrophils % (M) 43 %; Nucleated Red Blood Cells 0 /100 WBC (0-0); Total Cells Counted 200
[2019-04-08 12:06] LABS: Glucose,Whole Blood 265 mg/dL (75-99)
[2019-04-08] MEDS: SODIUM CHLORIDE 0.9% 1,000 ML IV SCH (12:38)
--- NOTE | 2019-04-08 15:06 | PN ---
PROGRESS NOTE DATE OF SERVICE: 04/08/2019 REASON FOR FOLLOWUP: 1. Pneumonia. 2. Drug rash. 3. Diarrhea. INTERVAL HISTORY: The patient is currently afebrile, has been breathing more comfortably. Denies having any chest pain. Cough has decreased in intensity. No nausea, no vomiting. No abdominal pain. His diarrhea has slowed down. The patient's rash has decreased in intensity. No new rash or any vesicle formation. PHYSICAL EXAMINATION: Blood pressure 114/64 with a pulse of 81, temperature 97.6. He is 94% 2 L nasal cannula. General description is an elderly male lying in bed in no distress. RESPIRATORY SYSTEM: Unlabored breathing with decreased breath sounds at the base. No wheeze. HEART: S1, S2. Regular rate and rhythm. ABDOMEN: Soft. No tenderness. LABS: Hemoglobin 8.8, white count 101. Stool for C difficile has been negative. Stool culture was requested; currently pending. DIAGNOSTIC IMPRESSION AND PLAN: 1. Patient admitted to hospital with a fever; did have some respiratory symptoms with a question of left lower lobe infiltrate, was treated with Zosyn. Sputum has been usual respiratory saira. Developed a rash, more likely secondary to Zosyn, which has been discontinued. Currently on oral Levaquin; to continue. 2. Patient with diarrhea. Multiple stools for C difficile have been negative. Stool culture currently pending. To continue with Questran while waiting for the stool culture to finalize. Continue with supportive care. MMODL / IJN: [id number] /
--- NOTE | 2019-04-11 12:53 | CDI ---
Documentation Clarification Form Date: 04/11/2019 12:37:22 PM From: Cynthia Angel Phone: If you have a question about this query, please contact Tarah Munson [employer] Technician at [phone] between 8am and 5pm. Admit Date: 04/03/2019 12:14:00 AM Patient Name: Juve Escudero Visit Number: [id number] Discharge Date: 04/08/2019 2:24:00 PM ATTENTION: The Clinical Documentation Specialists (CDI) and [facility] Coding Staff appreciate your assistance in clarifying documentation. Please respond to the clarification below the line at the bottom and electronically sign. The CDI & [facility] Coding staff will review the response and follow-up if needed. Please note: Queries are made part of the Legal Health Record. If you have any questions, please contact the author of this message via ITS. Dr. Lucía Nelson The [facility] and P documents severe sepsis due to pneumonia. Sepsis diagnosis dropped. DCS documents SIRS. Please clarify if patient had severe sepsis or was sepsis ruled out. History/Risk Factors: Patient has CML, documented SIRS, pneumonia Clinical Indicators: leukocytosis and tachycardia, lactic acidosis WBC 91.7 Lactic acid: 5.3 Vitals signs on admission: 97.8 F, 104 bpm, 22, 76/44 97% Treatment: ABX ID Consult: possible pneumonia Antibiotics: Zoxyn discontinue becasue of rash Other: In your professional opinion, please clarify if these findings signify one of the following conditions, whether the condition is POA, and cause, if known: Condition Sepsis ruled out SIRS, without underlying infectious process Sepsis Severe Sepsis Septic Shock Other, please specify Unable to determine SIRS Criteria (2 or more of the following may indicate SIRS): -Temperature < 96.8F (36C) or > 101.0F (38.3C) -Heart Rate > 90 bpm -Respiratory Rate > 20 breaths/min or PaCO2 < 32 mmHg -White Blood Cell Count > 12,000 or < 4,000 cells/mm3 or > 10% bands -Lactate >2.0 mmol/L (>4.0 is equivalent to septic shock) MTDD
== END 2019-04-08 14:24 | DRG 291 ==
LOC: EC 21:16 → 2SICU 04-03 00:14 → 3NMEDONC 04-05 18:00
PROVIDERS: ADMIT Hospitalist; ATTEND Hospitalist
DX: I13.0 Hypertensive heart and chronic kidney disease with heart failure and stage 1 through stage 4 chronic kidney disease, or unspecified chronic kidney disease (principal); I50.23 Acute on chronic systolic (congestive) heart failure; A41.9 Sepsis, unspecified organism; J18.9 Pneumonia, unspecified organism; J96.01 Acute respiratory failure with hypoxia; D69.3 Immune thrombocytopenic purpura; C92.00 Acute myeloblastic leukemia, not having achieved remission; C93.10 Chronic myelomonocytic leukemia not having achieved remission; C94.6 Myelodysplastic disease, not elsewhere classified; E87.2 Acidosis; J44.0 Chronic obstructive pulmonary disease with (acute) lower respiratory infection; J98.11 Atelectasis; N17.9 Acute kidney failure, unspecified; Z86.19 Personal history of other infectious and parasitic diseases; Z85.46 Personal history of malignant neoplasm of prostate; Z92.3 Personal history of irradiation; D50.9 Iron deficiency anemia, unspecified; D63.8 Anemia in other chronic diseases classified elsewhere; E11.22 Type 2 diabetes mellitus with diabetic chronic kidney disease; E83.42 Hypomagnesemia; E86.0 Dehydration; F03.90 Unspecified dementia, unspecified severity, without behavioral disturbance, psychotic disturbance, mood disturbance, and anxiety; I25.10 Atherosclerotic heart disease of native coronary artery without angina pectoris; I25.2 Old myocardial infarction; L27.0 Generalized skin eruption due to drugs and medicaments taken internally; N18.3 Chronic kidney disease, stage 3 (moderate); Z79.02 Long term (current) use of antithrombotics/antiplatelets; Z79.84 Long term (current) use of oral hypoglycemic drugs; Z79.899 Other long term (current) drug therapy; Z82.49 Family history of ischemic heart disease and other diseases of the circulatory system; Z86.2 Personal history of diseases of the blood and blood-forming organs and certain disorders involving the immune mechanism; Z86.79 Personal history of other diseases of the circulatory system; Z87.891 Personal history of nicotine dependence; Z95.5 Presence of coronary angioplasty implant and graft; Z95.810 Presence of automatic (implantable) cardiac defibrillator; Z82.3 Family history of stroke; Z90.49 Acquired absence of other specified parts of digestive tract; Z87.01 Personal history of pneumonia (recurrent); Z87.440 Personal history of urinary (tract) infections; I48.91 Unspecified atrial fibrillation; R74.8 Abnormal levels of other serum enzymes; T36.0X5A Adverse effect of penicillins, initial encounter
CPT/HCPCS: 36415; 71045; 71046; 80048; 80053; 81001; 83605; 83735; 83880; 84100; 84132; 84145; 84484; 85025; 85027; 85610; 85730; 86850; 86900; 86901; 87040; 87045; 87046; 87070; 87086; 87205; 87324; 87493; 93005; 94640; 96361; 96365; 96366; 96368; 99291

== ENCOUNTER → 2019-05-27 | Outpatient (CLI) | payer MEDICARE, BC, OTHER | END | disposition home or self-care (01) | LOC: LABWHC1 12:59 | PROVIDERS: ATTEND Urology | DX: C61 Malignant neoplasm of prostate (principal); R97.21 Rising PSA following treatment for malignant neoplasm of prostate | CPT/HCPCS: 36415; 84153; 84403 ==